=== PATIENT | female | born 1960 | race Caucasian/White ===

== ENCOUNTER 2021-08-05 11:01 | Emergency (ER) | payer MEDICARE, SELFPAY ==
[2021-08-05 11:08] VITALS: BP 157/79; PULSE 86; RESP 20; TEMP 37.1; O2SAT 95; BMI 27.3
[2021-08-05 11:20] VITALS: BP 157/79; PULSE 86; RESP 20; TEMP 37.1; O2SAT 95; BMI 24.2
--- NOTE | 2021-08-05 11:28 | XR_ITS ---
PROCEDURE INFORMATION: Exam: XR Chest Exam date and time: 08/05/2021 11:28 AM Age: 61 years old Clinical indication: Cough; Additional info: Cough, weakness TECHNIQUE: Imaging protocol: XR of the chest. Views: 2 views. COMPARISON: No relevant prior studies available. FINDINGS: Lungs: No focal consolidation. Mild bibasilar atelectasis. Pleural spaces: Unremarkable. No pleural effusion. No pneumothorax. Heart/Mediastinum: Unremarkable. No cardiomegaly. Bones/joints: Unremarkable. IMPRESSION: No focal consolidation. Mild bibasilar atelectasis.
--- NOTE | 2021-08-05 11:29 | HMH.EDUTC ---
[facility] [place] Disposition Clinical Impression: Bronchitis, COVID-19 virus test result unknown Disposition: Home, Self-Care Condition on Discharge: Good Instructions: Preventing the Spread of Coronavirus Discharge Instructions, DI for Acute Bronchitis Additional Instructions: covid swab was sent to lab, call later today for results. self isolate until test results are known to be negative Start antibiotic today. Be sure to complete entire prescription even if feeling better Tylenol and ibuprofen as needed for pain or fever Humidifier/vaporizer/hot steamy shower Follow-up with primary care tomorrow. Follow-up immediately in the ER of the [facility] for new or worsening symptoms or no noticeable improvement over the next 48-72 hours. Stop smoking Inhaler every 4-6 hours as needed. Should help open airways improved cough, wheezing, shortness of breath Maru Jewell will not cause drowsiness to use at bedtime to help stop cough so that she can get some sleep Start steroids today. Helps with inflammation therefore coughing and wheezing. Follow directions on package. Prescriptions: Azithromycin [Zithromax 250mg tab] 250 mg PO DIRECTED #6 tab Transmission Status: Pending to [id number] Referrals: Lexy Wilkes PA [Primary Care Provider] - Time of Disposition: 12:53 Medical Decision Making - Raphael Inquiry Pt receiving controlled substance: No Vital Signs: 08/05/21 11:08 08/05/21 11:20 Temperature 98.7 F 98.7 F Temperature Source Oral Oral Pulse Rate [Right Brachial] 86 86 Respiratory Rate 20 20 Blood Pressure [Right Arm] 157/79 H 157/79 H Blood Pressure Mean [Right Arm] 105 105 Blood Pressure Source [Right Arm] Automatic Cuff Automatic Cuff Blood Pressure Position [Right Arm] Sitting Sitting 02 Sat by Pulse Oximetry 95 95 Oxygen Delivery Method Room Air Room Air - Lab Data Lab Results 08/05/21 12:00: WBC 6.1, RBC 4.19 L, Hgb 13.0, Hct 39.8, MCV 95.1, MCH 31.1, MCHC 32.7, RDW 12.4, Plt Count 392, MPV 7.8, Neut % (Auto) 71.8, Lymph % (Auto) 19.7, Walton % (Auto) 5.5, Eos % (Auto) 2.4, Baso % (Auto) 0.6, Neut # (Auto) 4.4, Lymph # (Auto) 1.2, Walton # (Auto) 0.3, Eos # (Auto) 0.2, Baso # (Auto) 0.0 08/05/21 12:00: Sodium 139, Potassium 3.6, Chloride 101, Carbon Dioxide 29, Anion Gap 12.6, BUN 8, Creatinine 0.50 L, Estimated Creat Clear 67, Estimated GFR 125, Est GFR ( Amer) 151, Glucose 249 H, Calcium 9.1, Total Bilirubin 0.3, AST 30, ALT 27, Alkaline Phosphatase 68, Total Creatine Kinase 31, CK-MB (CK-2) 0.4, CK-MB (CK-2) Rel Index 1.3, Troponin I < 0.01, Total Protein 7.0, Albumin 3.7, Globulin 3.3 H, Albumin/Globulin Ratio 1.1 08/05/21 12:00: Acetone Level None detected Result diagrams: 08/05/21 12:00 08/05/21 12:00 Orders (Tests/Meds): ORDERS Category Date Time Status ECG Request by /Nse Stat Y 08/05/21 11:28 Ordered [facility] [place] HPI - General Chief complaint: Shortness of Breath/Dyspnea Stated complaint: Cough,SOB,CRUZ,Weakness,Diarrhea,congestion Time Seen by Provider: 08/05/21 11:29 Mode of Arrival: Wheelchair Limitations: No Limitations Description of Symptoms (Recalled from Triage Doc. by RN): Pt family states that she has been sick for the past week. short of breath and feels like she has been running a fever, but does not have a thermometer to check it. pt complains of diarrhea as well. states that [place] and [place] exposed to crowds [place], but did not go this last week. HEENT Symptoms (Recalled from RN notes): No Resp Symptoms (Recalled from RN notes): Yes Skin Symptoms (Recalled from RN notes): No MS Symptoms (Recalled from RN notes): No Functional Status (Recalled from RN notes): na - History of Present Illness Provider Complaint: 61 yr old female presents for weakness.Pt family states that she has been sick for the past week. short of breath and feels like she has been running a fever, but does not have a thermometer to check it. pt complains of diarrhea as well. states th
--- NOTE | 2021-08-05 11:40 | ECG_ITS ---
APPROVED REPORT Exam: Resting ECG HR:93 bpm ECG Measurements Heart Rate 93 AXES NC 164 P 61 QRSd 82 QRS 10 QT 380 T 162 QTc 472 Conclusion Normal sinus rhythm T wave abnormality, consider anterior ischemia Prolonged QT Abnormal ECG Electronically signed by : Brad Hassan MD 08/06/2021 09:18:49
[2021-08-05 12:07] LABS: Basophils % 0.6 % (0.1-2.0); Eosinophils # 0.2 K/mm3 (0.0-0.4); Eosinophils % 2.4 % (0.1-12.0); Hematocrit 39.8 % (37.0-47.0); Lymphocytes # 1.2 K/mm3 (0.7-4.5); Lymphocytes % 19.7 % (10-50); Mean Corpuscular HGB Conc 32.7 g/dL (31.8-35.4); Mean Corpuscular Hemoglobin 31.1 pg (27.0-31.2); Mean Corpuscular Volume 95.1 fl (81-99); Mean Platelet Volume 7.8 fl (7.4-10.4); Monocytes # 0.3 K/mm3 (0.1-1.0); Monocytes % 5.5 % (1.7-9.3); Neutrophils # 4.4 K/mm3 (1.8-7.8); Neutrophils % 71.8 % (37.0-80.0); Platelet Count 392 K/mm3 (142-424); Red Blood Count 4.19 M/mm3 (4.20-5.40); Red Cell Distribution Width 12.4 % (11.5-17.5); White Blood Count 6.1 K/mm3 (4.8-10.8)
[2021-08-05 12:12] LABS: Chloride 101 mmol/L (98-107); Potassium 3.6 mmoL/L (3.5-5.1); Sodium 139 mmol/L (136-145)
[2021-08-05 12:15] LABS: Alanine Aminotransferase 27 U/L (12-78); Albumin Level 3.7 g/dl (3.5-5.0); Albumin/Globulin Ratio 1.1 (1.1-1.8); Alkaline Phosphatase 68 U/L (38-126); Anion Gap 12.6 mEq/L (5-15); Aspartate Amino Transferase 30 U/L (14-36); Bilirubin,Total 0.3 mg/dl (0.2-1.3); Blood Urea Nitrogen 8 mg/dl (7-17); Calcium 9.1 mg/dl (8.4-10.2); Carbon Dioxide 29 mmol/L (22.0-30.0); Creatine Kinase 31 U/L (30-135); Creatinine Clearance Estimated 67 mL/min (50-200); Estimated Glomerular Filt Rate 125 ml/min (>60); GFR (African American) 151 ML/MIN (>60); Globulin 3.3 g/dL (1.3-3.2); Glucose 249 mg/dl (74-100)
[2021-08-05 12:24] LABS: CKMB Relative Index 1.3 U/L (0-4.0); Creatine Kinase MB 0.4 ng/ml (0.0-2.03)
[2021-08-05 12:33] LABS: Troponin I < 0.01 ng/ml (0.00-0.034)
[2021-08-05 12:44] LABS: Acetone, Serum (Rapid) None Detected (None Detect)
[2021-08-05 12:56] VITALS: BP 157/79; PULSE 86; RESP 20; TEMP 37.1; O2SAT 95
== END 2021-08-05 13:00 | disposition home or self-care (01) ==
PROVIDERS: Emergency Provider Nurse Practitioner Family; PCP Physician Assistant Medical
DX: J20.9 Acute bronchitis, unspecified (principal); U07.1 COVID-19
CPT/HCPCS: 71046; 80053; 82009; 82550; 82553; 84484; 85025; 93005; 99291; C9803; U0003; U0005

== ENCOUNTER 2021-08-09 11:02 | Outpatient (CLI) | payer MEDICARE, SELFPAY ==
[2021-08-09 11:45] VITALS: BP 187/102; PULSE 92; RESP 16; TEMP 36.8; O2SAT 97
[2021-08-09 12:35] VITALS: BP 186/95; PULSE 89; RESP 16; O2SAT 97
[2021-08-09 13:00] VITALS: BP 189/92; PULSE 86; RESP 18; O2SAT 95
[2021-08-09 13:11] VITALS: BP 182/99; PULSE 81; RESP 18; O2SAT 96
== END 2021-08-09 13:14 | disposition home or self-care (01) ==
LOC: INF 11:05
PROVIDERS: PCP Physician Assistant Medical; Visit Provider Physician Assistant Medical
DX: U07.1 COVID-19 (principal); Z23 Encounter for immunization
CPT/HCPCS: 96365

== ENCOUNTER → 2023-02-06 18:45 | Outpatient (CLI) | payer MEDICARE, MEDICAID, SELFPAY | PROVIDERS: PCP Nurse Practitioner Family; Visit Provider Nurse Practitioner Family | DX: B35.1 Tinea unguium (principal); L60.8 Other nail disorders | CPT/HCPCS: 87102; 87206; 87220 ==

== ENCOUNTER → 2023-06-27 09:38 | Outpatient (CLI) | payer MEDICARE, MEDICAID, SELFPAY ==
--- NOTE | 2023-06-27 09:43 | MM_ITS ---
PROCEDURE INFORMATION: Exam: MG Bilateral Screening 3D Mammography Exam date and time: 06/27/2023 10:58 AM Age: 63 years old Clinical indication: Screening. No family history of breast cancer. TECHNIQUE: Imaging protocol: Bilateral Screening tomosynthesis and 2D mammography including computer-aided detection (CAD) when performed. COMPARISON: No relevant prior studies available.If prior mammograms are provided, I am happy to add an addendum. FINDINGS: MAMMOGRAPHY: Breast composition: The breasts are almost entirely fatty. Mass: None. Architectural distortion: None. Calcifications: No suspicious calcifications. Asymmetric density: None. Skin thickening: None. Axillary adenopathy: None. IMPRESSION: No mammographic evidence of malignancy. Annual screening is recommended unless otherwise clinically indicated. ASSESSMENT: BI-RADS Category 1: Negative
--- NOTE | 2023-06-27 09:43 | US_ITS ---
PROCEDURE: US TRANSVAGINAL CLINICAL INDICATION: abnormal bleeding and pelvic mass COMPARISON: No exams were available for comparison FINDINGS: Transvaginal and transabdominal sonographic images of the pelvis were obtained. UTERUS: 9.9 cm x 7cmx 5.8 cm with a combined endometrial thickness of 13.5 mm. Within the cervix there are multiple nabothian cysts. The largest measures 2.3 cm. There is a large pelvic mass superior to and left lateral to the uterus. It measures 11.8 cm x 7.5 cm x 10.7 cm. The mass has a solid appearance that seems to be separate from the uterus although it is difficult to see this definitively. LEFT OVARY: 2.6 cmx1.8 cmx1.5cm with a volume of 3.7ml. RIGHT OVARY: The right ovary is not visualized. Left ovary is seen and appears normal. Doppler flow to left ovary is seen. There is trace fluid in the cul-de-sac. IMPRESSION: 1. The uterus is anteverted and bulky. The endometrium is abnormally thickened for a postmenopausal woman. There are multiple nabothian cysts in the cervix the largest of which is 2.3 cm. 2. The left ovary appears normal. The right ovary is not seen. 3. There is a large mass superior to the uterus that extends laterally to the left side of the uterus. It measures 11.8 cm x 7.5 cm x 10.7 cm. It seems to be separate but compressing the uterus. It certainly could be a fibroid but a soft tissue tumor could also be a possibility. CT scan might be helpful. 4. There is trace fluid in the cul-de-sac. 5. The tech noted that there was vaginal bleeding after the examination. Dictated by: Jj Lee MD 06/27/2023 14:25 Jj Lee MD in [place] 06/27/2023 14:25
== END ==
PROVIDERS: PCP Nurse Practitioner Family; Visit Provider Obstetrics & Gynecology
DX: Z12.31 Encounter for screening mammogram for malignant neoplasm of breast (principal); N85.2 Hypertrophy of uterus; N95.0 Postmenopausal bleeding; R19.00 Intra-abdominal and pelvic swelling, mass and lump, unspecified site
CPT/HCPCS: 76830; 77063; 77067

== ENCOUNTER → 2023-06-28 09:37 | Outpatient (CLI) | payer MEDICARE, MEDICAID, SELFPAY ==
[2023-06-28 10:50] LABS: Alanine Aminotransferase 20 U/L (12-78); Albumin Level 4.1 g/dl (3.5-5.0); Albumin/Globulin Ratio 1.6 (1.1-1.8); Alkaline Phosphatase 53 U/L (38-126); Anion Gap 12.5 mEq/L (5-15); Aspartate Amino Transferase 22 U/L (14-36); Bilirubin,Total 0.5 mg/dl (0.2-1.3); Blood Urea Nitrogen 10 mg/dl (7-17); Calcium 8.9 mg/dl (8.4-10.2); Carbon Dioxide 30 mmol/L (22.0-30.0); Chloride 101 mmol/L (98-107); Estimated Glomerular Filt Rate 72 ml/min (>60); GFR (African American) 87 ML/MIN (>60); Globulin 2.5 g/dL (1.3-3.2); Glucose 152 mg/dl (74-100); Potassium 4.5 mmoL/L (3.5-5.1); Sodium 139 mmol/L (136-145); Total Protein,Serum 6.6 g/dl (6.3-8.2)
== END ==
PROVIDERS: PCP Internal Medicine Adolescent Medicine; Visit Provider Obstetrics & Gynecology
DX: N85.8 Other specified noninflammatory disorders of uterus (principal)
CPT/HCPCS: 36415; 80053

== ENCOUNTER → 2023-07-01 07:43 | Outpatient (CLI) | payer MEDICARE, MEDICAID, SELFPAY ==
--- NOTE | 2023-07-01 07:44 | CT_ITS ---
FINAL REPORT TECHNIQUE: Routine axial images were obtained from the lung apices to below the diaphragm following IV contrast administration. Individualized dose reduction techniques using automated exposure control or adjustment of the mA and/or kV according to the patient size were employed. CLINICAL HISTORY: uterine Mass COMPARISON: None FINDINGS: The apices of the lungs were not imaged on this examination. No acute lung disease is present. No pleural or pericardial effusion is seen. No adenopathy is present. There is a 4 mm nodule in the right lower lobe, noncalcified, best seen on image 34 of series 4. There is another 4 mm nodule seen in the left lung base best seen on image #48 of series 4. IMPRESSION: There are two small 4 mm nodules as described. By Fleischner criteria a 1 year follow-up chest CT is suggested. Reviewed, Interpreted and Dictated by Morgan Stroud MD Transcribed by Cathryn Peguero Authenticated and [facility]
--- NOTE | 2023-07-01 07:44 | CT_ITS ---
FINAL REPORT TECHNIQUE: After the administration of oral and intravenous contrast, axial images were obtained through the abdomen and pelvis by computed tomography. The study was performed with techniques to keep radiation dose as low as reasonably achievable, (ALARA). Individual dose reduction techniques using automated exposure control or adjustment of mA and/or kV according to the patient's size were employed. CLINICAL HISTORY: uterine Mass COMPARISON: None FINDINGS: Abdomen: The lung bases are clear. The liver parenchyma is homogeneous, the liver measuring 19 cm in craniocaudal dimension.. The gallbladder is absent, and there is mild intra and extrahepatic ductal dilatation consistent with a prior cholecystectomy. The spleen, pancreas, adrenals and kidneys appear unremarkable. The aorta is normal in caliber. There is no free fluid or adenopathy. Pelvis: The appendix is normal. There are multiple lobular masses in the pelvis contiguous with the uterus, the largest measuring 12 x 7.5 cm in size. These may be arising from the uterus. There is a right posterolateral focus with a cystic component, which measures 5.8 cm in diameter. The ovaries are not clearly visualized on either side. The urinary bladder is compressed due to the large pelvic masses. There is no free fluid or adenopathy. IMPRESSION: Multiple lobular masses in the pelvis contiguous with the uterus as described. These may be arising from the uterus, although the exact origin is not clear on this examination. Reviewed, Interpreted and Dictated by Morgan Stroud MD Transcribed by Cathryn Peguero Authenticated and [facility]
== END ==
PROVIDERS: PCP Nurse Practitioner Family; Visit Provider Obstetrics & Gynecology
DX: N85.8 Other specified noninflammatory disorders of uterus (principal)
CPT/HCPCS: 71260; 74177; Q9967

== ENCOUNTER 2024-02-25 14:37 | Outpatient (POV) | payer MEDICARE, MEDICAID, SELFPAY | END 2024-02-25 23:59 | disposition home or self-care (01) | LOC: SC 14:38 | PROVIDERS: PCP Internal Medicine Adolescent Medicine; Visit Provider Dermatology | DX: Z00.00 Encounter for general adult medical examination without abnormal findings (principal) ==

== ENCOUNTER 2024-03-31 07:46 | Outpatient (CLI) | payer MEDICARE, MEDICAID, SELFPAY ==
--- NOTE | 2024-03-31 | CA_ITS ---
APPROVED REPORT Exam: Pharmacologic Technologist: Ynes Metzger, Ht: 5 ft 5 in Wt: 174 lbs BSA: 1.86 m2 HR: 77 bpm BP: 154/79 mmHg Rhythm: NSR Medical History Medications: Lisinopril,,,,, Aspirin,,,,, Fluoxetine,,,,, JaRDiance,,,,, Hydroxyzine HCI,,,,, BuPROPION HCI,,,,, Terbinafine HCI,,,,, Stress Test Details Test: LEXISCAN Reason for pharmacologic stress test: physical limitation. HR Resting HR: 79 bpm Max Heart Rate (APMHR): 155 bpm Max HR Achieved: 93 bpm Target HR (85% APMHR): 132 bpm % of APMHR: 60 Recovery HR: 86 bpm BP Resting BP: 154.0/79.0 mmHg Max BP: 154.0/79.0 mmHg Recovery BP: 149.0/67.0 mmHg ECG Resting ECG: NSR Stress ECG: No significant ST changes Arrhythmia: PVCs Clinical Exercise duration: 04:04 min Highest Stage Achieved: Stress ECG Conclusion Symptoms: chest tightness Arrhythmias/Ectopy: PVC ST-T Changes: No significant ST changes Conclusion: EKG portion unremarkable due to Lexiscan infusion. Myoview images reported separately. Test Summary REST . . . . . . . Resting REST 03:06 . . 79 . 154/ 79 . . Stage 1 . . . . . . . Myoview Injected Stage 1 01:00 . . 91 . . . . Stage 2 01:00 . . 91 . 147/ 67 . . Stage 3 01:00 . . 90 . 145/ 64 . . Stage 4 01:00 . . 88 . 136/ 65 . . Stage 4 01:04 . . 88 . 136/ 65 . Stop exercise at 04:04 RECOVERY 01:00 . . 89 . . . . RECOVERY 02:00 . . 86 . 149/ 61 . . RECOVERY 03:00 . . 87 . 149/ 67 . . RECOVERY 03:14 . . 86 . 149/ 67 . . Electronically signed by : Ciara Broussard MD 04/07/2024 13:04:10
--- NOTE | 2024-03-31 07:53 | NM_ITS ---
APPROVED REPORT Exam: Nuclear Stress Test Indication: SOB, HTN, DM, High cholesterol, Family history Patient Location: Outpatient Stress Tech: Ynes Flores MD Tech:Ester Caldwell, ARRT, RT (R)(N) Ht: 5 ft 4 in Wt: 172 lbs Bra Size: 36D HR: 79 bpm BP: 154/79 mmHg BSA: 1.83 m2 TID: 1.11 BMI: 29.5 History: SOB, HTN, DM, High cholesterol, Family history Procedure: Patient received 0.4 mg of intravenous Lexiscan, resting heart rate 79 bpm, resting blood pressure 154/79 mmHg, with Lexiscan maximum heart rate achieved was 93 bpm which is % of the maximum predicted heart rate and blood pressure was 154/79 mmHg. With Lexiscan, patient denied any complaint of chest pain. Cardiac Stress and Resting SPECT Images: Cardiac Stress and Resting SPECT images were obtained using technetium 99m Myoview 29.5 mCi stress and 9.16 mCi at rest. Resting and stress imaging in supine and prone positions demonstrate no evidence of fixed or reversible perfusion defects. Gated imaging demonstrates moderate reduction in global LV systolic function. LVEF is calculated at 39%. Conclusion: No evidence of fixed or reversible perfusion defects. Gated imaging demonstrates moderate reduction in global LV systolic function. LVEF is calculated at 39%. Correlation of LVEF with recent or new TTE is recommended. Electronically signed by : Ciara Broussard MD 04/07/2024 13:05:44
[2024-03-31] MEDS: SODIUM CHLORIDE 0.9% 10ML SYR (RAD ONLY) 10 ML IV ×2 (08:55)
[2024-03-31] MEDS: REGADENOSON 0.4MG/5ML SYRINGE 0.400000000000000022 MG IV (08:55)
[2024-03-31] MEDS: ISOTOPE MYOVIEW (PER STUDY) 1 DOSE IV (08:55)
== END 2024-03-31 23:59 | disposition home or self-care (01) ==
LOC: RAD 07:47
PROVIDERS: PCP Nurse Practitioner Family; Visit Provider Nurse Practitioner Family
DX: R06.02 Shortness of breath (principal)
CPT/HCPCS: 78452; 93017; 93018; A9502; J2785

== ENCOUNTER 2024-04-07 10:42 | Outpatient (CLI) | payer MEDICARE, MEDICAID, SELFPAY ==
--- NOTE | 2024-04-07 10:49 | MM_ITS ---
PROCEDURE INFORMATION: Exam: MG Bilateral Screening 3D Mammography Exam date and time: 04/07/2024 10:48 AM Age: 64 years old Clinical indication: Screening examination TECHNIQUE: Imaging protocol: Bilateral Screening tomosynthesis and 2D mammography including computer-aided detection (CAD) when performed. COMPARISON: MG MM DIG SCREENING MAMM BI W/CAD 06/27/2023 10:58 AM FINDINGS: MAMMOGRAPHY: Breast composition: The breasts are almost entirely fatty. Mass: None. Architectural distortion: None. Calcifications: No suspicious calcifications. Asymmetric density: None. Skin thickening: None. Axillary adenopathy: None. IMPRESSION: No mammographic evidence of malignancy. Annual screening is recommended unless otherwise clinically indicated. ASSESSMENT: BI-RADS Category 1: Negative
== END 2024-04-07 23:59 | disposition home or self-care (01) ==
PROVIDERS: PCP Nurse Practitioner Family; Visit Provider Nurse Practitioner Family
DX: Z12.31 Encounter for screening mammogram for malignant neoplasm of breast (principal)
CPT/HCPCS: 77063; 77067

== ENCOUNTER 2024-04-16 13:06 | Outpatient (CLI) | payer MEDICARE, MEDICAID, SELFPAY ==
--- NOTE | 2024-04-16 13:10 | CA_ITS ---
APPROVED REPORT EXAM: Comprehensive 2D, Doppler, and color-flow Echocardiogram Night Shift: Milly Santillan RCS, RVS Ht: 5 ft 4 in Wt: 172lbs BSA: 1.83 BP: 154/79 mmHg Indications: Abnormally reduced Ejection fraction per Nuclear stress test 03/2024, DM< HTN, Family Hx-HD, Second hand smoke 2D Dimensions IVSd 1.08 cm LVEF (Visual) 44.20 % PWd 1.28 cm LA Volume 65.80 mL LVDd 5.63 cm LA Volume Index 35.00 mL/m2 (M/F) 16-34 LVDs 4.38 cm EF AP4 40.40 % Left Atrium 4.21 cm GL Strain -18.1 % M-Mode Dimensions LA Diam 2.40 cm (1.9-4.0) LVDd 5.46 cm (3.5-5.7) LVDs 4.32 cm (3.5-5.7) EF (Teich) 42.10% EPSs 1.62 cm FS 20.90% EDV (Teich) 145.00 mL TAPSE 2.26 (<1.7) ESV (Teich) 84.00 mL LV Diastology E Decel Time 187 (160-240 msec) E/A Ratio 0.82 MED A' 6.50 cm/s LAT A' 9.40 cm/s Aortic Valve GLADIS Index 1.15 cm2/m2 AoV Peak Usama. 110.0 (50-130 cm/s) AO Peak GR. 4.90 mmHg AO Mean GR. 2.40 (<5 mmHg) AO VTI 21.9 (18-25 cm) GLADIS (VTI) 2.17 (2.5-4.5 cm2) Mitral Valve MV A Velocity 92.0 (40-130 cm/s) E/A Ratio 0.82 MV Mean Gr. 1.60 (<2mmHg) Pulmonary Valve PV Peak Velocity 86.0 (50-150 cm/s) Left Ventricle Left ventricle is mildly dilated. Left ventricular systolic function is mildly decreased. There is normal left ventricular wall thickness. There is mild global hypokinesis present. There is moderate hypokinesis of the basal septal, inferoseptal, and anteroseptal LV cueto. Grade 1 diastolic dysfunction is present. LVEF is 40-45%. Right Ventricle The right ventricle is normal size. The right ventricular systolic function is normal. Atria The left atrium size is normal. The right atrium size is normal. There is no Doppler evidence of interatrial shunt. Aortic Valve The aortic valve opens well. There is no aortic valvular stenosis. Trace aortic regurgitation. Mitral Valve The mitral valve leaflets are mildly thickened. No evidence of mitral valve stenosis. Trace mitral regurgitation. Tricuspid Valve The tricuspid valve leaflets are thin and pliable. Trace tricuspid regurgitation. RVSP is normal. Pulmonic Valve The pulmonary valve is normal in structure. Trace pulmonic regurgitation. Great Vessels The aortic root is normal in size. The ascending aorta is not well-visualized. IVC is normal in size and collapses >50% with inspiration. Pericardium There is no pericardial effusion. Other Information Study Quality: Fair Conclusion Mild LV dilation with mildly reduced LV systolic function (LVEF 40-45%). Moderate hypokinesis of the basal septal, inferoseptal, and anteroseptal LV cueto. No significant valvular stenosis or regurgitation. Electronically signed by : Ciara Broussard MD 04/21/2024 11:23:23
== END 2024-04-16 23:59 | disposition home or self-care (01) ==
LOC: RT 13:07
PROVIDERS: PCP Nurse Practitioner Family; Visit Provider Nurse Practitioner Family
DX: I51.9 Heart disease, unspecified (principal)
CPT/HCPCS: 93306

== ENCOUNTER 2024-05-25 07:30 | Outpatient (CLI) | payer MEDICARE, MEDICAID, SELFPAY ==
--- NOTE | 2024-05-25 07:30 | CT_ITS ---
APPROVED REPORT Compliance Examiner: CLINICAL INDICATION Chest Pain TECHNIQUE Image Acquisition: A 128 slice MDCT scanner (TrendMDa View) was used for data acquisition. A noncontrast coronary calcium scan was performed. A CT attenuation threshold of 130 Hounsfield units (HU) was used for the detection of calcium in contiguous voxels of 1 sq mm in area to be counted as individual lesions. Bolus tracking in the ascending aorta with a threshold of 180 HU was performed. Immediately afterwards, ECG synchronized cardiac CT was then performed from the cardiac base to apex using retrospective gating with ECG tube current modulation. A total of 85 mL of Isovue 370 mg/mL contrast medium was administered at 5 mL/sec followed by a saline flush using a biphasic injection protocol. A tube voltage of 120 KVp was used. The patient received the following medications prior to the cardiac CT. 50 mg of oral metoprolol 15 mg of oral ivabradine 0.8 mg of sublingual nitroglycerin The average heart rate at the time of acquisition was 76 bpm and regular. Image Reconstruction Transaxial images were reconstructed at 0.67 mm slide thickness. Data was reviewed interactively on an advanced workstation capable of 2 and 3-dimensional displays in all conventional reconstruction formats, including multiplanar reformations, maximum intensity projections, curved multiplanar reformations, and volume rendered reconstructions. When applicable, selected routine images describing the relevant coronary anatomy and pathology were saved and sent to PACS. Complications None Technical Quality Technically difficult study. Overall image quality was poor due to significant motion and step artifact during image acquisition. Coronary artery opacification was suboptimal. Total DLP (Dose-Length Product) is 1345.1 mGy-cm. The reported value represents the total of one or more individual components during the CT acquisition of this date and at this time, and as such, the same value may appear in more than one CT report depending on the interpreting/reporting physicians. COMPARISON None FINDINGS CT Coronary Calcium Scoring LMA (Left Main Artery) = 0 LAD (Left Anterior Descending) = 0 LCX (Left Coronary Circumflex) = 0 RCA (Right Coronary Artery) = 0 Total Calcium Score = 0 using the AJ-130 method. The interpretation of the calcium heart score is based on the following continuum*: 0 = no calcified plaque detected (risk of coronary artery disease is very low ??? less than 5%) 1-10 = calcium detected in extremely minimal levels (risk of coronary diseases is still low ??? less than 10%) 11-100 = mild levels of plaque detected with certainty (mild or minimal narrowing of heart arteries is likely) 101-400 = definite,at least moderate levels of plaque detected (relatively high risk of a heart attack within 3-5 years) >401-999 = extensive levels of plaque detected (high risk of heart attack, high levels of vascular disease are present, high likelihood of at least one significant coronary narrowing) *The calcium heart score quantifies the burden of coronary calcification/plaque in the coronary arteries. The calcium heart score is not able to evaluate the presence or burden of non-calcified (i.e. soft) plaque. There is no identifiable calcification in the aortic valve, mitral annulus or mitral valve, pericardium, or myocardium. Coronary CT Angiography The coronary arterial system is right dominant. Quantitative Stenosis Grading: Left Main (LM): The left main originates normally from the left sinus of Valsalva. The LM bifurcates into the left anterior descending artery and left circumflex artery. The LM is patent with no evidence of atherosclerosis. Left Anterior Descending (LAD) and
[2024-05-25 07:46] VITALS: BMI 29.7
[2024-05-25 07:54] VITALS: BP 134/66; PULSE 68; RESP 16; O2SAT 99
[2024-05-25 08:04] LABS: POC Glucose,Bedside 136 (70-110)
[2024-05-25 08:09] LABS: Chloride 104 mmol/L (98-107); Potassium 4.4 mmoL/L (3.5-5.1); Sodium 137 mmol/L (136-145)
[2024-05-25 08:12] LABS: Anion Gap 10.4 mEq/L (5-15); Blood Urea Nitrogen 21 mg/dl (7-17); Carbon Dioxide 27 mmol/L (22.0-30.0); Creatinine Clearance Estimated 63 mL/min (50-200); Estimated Glomerular Filt Rate 50 ml/min (>60); GFR (African American) 60 ML/MIN (>60)
[2024-05-25 08:13] LABS: Calcium 9.4 mg/dl (8.4-10.2); Glucose 129 mg/dl (74-100)
[2024-05-25 08:44] VITALS: BP 148/67; PULSE 72; RESP 16; O2SAT 94
[2024-05-25 08:50] VITALS: BP 130/69; PULSE 68; RESP 16; O2SAT 94
[2024-05-25 08:53] VITALS: BP 128/72; PULSE 68; RESP 16; O2SAT 94
[2024-05-25 09:00] VITALS: BP 129/67; PULSE 64; RESP 16; O2SAT 93
[2024-05-25 09:15] VITALS: BP 114/64; PULSE 65; RESP 16; O2SAT 94
== END 2024-05-25 09:20 | disposition home or self-care (01) ==
PROVIDERS: PCP Nurse Practitioner Family; Visit Provider Physician Assistant
DX: I20.89 Other forms of angina pectoris (principal); R06.09 Other forms of dyspnea; R93.1 Abnormal findings on diagnostic imaging of heart and coronary circulation
CPT/HCPCS: 75574; 80048; 82962; Q9967

== ENCOUNTER 2024-07-07 09:01 | Outpatient (CLI) | payer MEDICARE, MEDICAID, SELFPAY ==
--- NOTE | 2024-07-07 09:13 | MR_ITS ---
APPROVED REPORT Key Holder: CLINICAL INDICATION Reduced LVEF 40-45% on TTE TECHNIQUE Image Acquisition: Cardiac magnetic resonance (CMR) was performed on Siemens Espree MRI 1.5T scanner. Software platform sequences were performed using the Siemens Bueda MR B19 platform. A set of three-plane, low-resolution, large [id number] localizers were initially acquired. Then axial, coronal, sagittal TrueFISP, as well as axial HASTE images, were obtained. These were followed by gated TrueFISP breathold cinematic sequences obtained in the short axis with 8 mm slices and 2 mm gaps, 2-chamber (vertical long axis), 3-chamber, 4-chamber (horizontal long axis). A bolus of contrast was injected intravenously with first-pass sequences obtained in the short axis and four-chamber planes. After approximately 10 minutes, a TI delinquent tax collector sequence was performed to determine the optimal TI time. Using the optimized TI time, delayed contrast enhancement segmented inversion???recovery TurboFLASH sequences were obtained in the short axis, 2-chamber, 3-chamber, and 4-chamber projections. 2D-velocity phase mapping was performed. Functional parameters were calculated by offline analysis on an independent workstation ([employer], [employer] Contrast: ProHance??? (Gadoteridol) FINDINGS MORPHOLOGY AND FUNCTION Left ventricle: The left ventricle is normal in size. The indexed left ventricular end-diastolic volume (LVEDVi) is 80 ml/m2 (reference range 57-105 ml/m2 in males, 56-96 ml/m2 in females). There is mild reduction in left ventricular systolic function. There is normal left ventricular wall thickness. There is mild global hypokinesis present. There are no regional wall motion abnormalities noted. LVEF is calculated at 41.0% (reference range 57-77%). Right ventricle: The right ventricle is normal in size. The indexed right ventricular end-diastolic volume (RVEDVi) is 57 ml/m2 (reference range 61-121 ml/m2 in males, 48-112 ml/m2 in females). Normal right ventricular systolic function is present. RVEF is calculated at 55.0% (reference range 52-72% in males, 51-71% in females). Atria: The left atrium is normal in size. The maximum indexed left atrial volume is 25 ml/m2 (reference range 26-52 ml/m2 in males, 27-53 ml/m2 in females). The right atrium is normal in size. The maximum indexed right atrial volume is 23 ml/m2 (reference range 18-90 ml/m2). Aorta: The diameter of the aortic annulus is normal, measuring 19 mm (coronal view reference range 21-30 mm in males, 19-27 mm in females). The diameter of the aortic sinus is normal, measuring 32 mm (coronal view reference range 25-42 mm in males, 24-36 mm in females). The diameter of the sinotubular junction is normal, measuring 26 mm (coronal view reference range 18-32 mm in males, 18-28 mm in females). The diameters of the ascending and descending thoracic aorta are normal. Main pulmonary artery: The main pulmonary artery diameter is normal. Pericardium: The pericardial thickness is normal. The pericardial thickness measures 3 mm (normal < 4.0 mm). There is no pericardial effusion. VALVES The valvular morphologies in the visualized sequences appear normal. There is no significant valvular stenosis or regurgitation of the mitral, aortic, tricuspid, or pulmonic valve noted visually. Systolic anterior motion of the mitral valve is not visualized. Ratio of pulmonary to systemic flow, Qp:Qs ratio = 1.26 (normal < or = 1.2, hemodynamically significant shunt > 1.5), demonstrating no evidence of hemodynamically significant shunt. TISSUE CHARACTERIZATION Resting Perfusion: Normal myocardial blood flow at rest. No evidence of resting hypoperfusion. Myocardial Fibrosis and/or edema: Normal gadolinium kinetics are present. No evidence of late gadolinium enhancement is noted, consistent with absence of myocardial scarring, infarction, or necrosis. T2-weighted imaging demonstrates no evidence of myocardial edema or inflammation. OTHER No other significant findings are noted. However, this exam is focused on the cardiac structure and function. IMPRESSION Normal LV size with mild reduction in LV systolic function. LVEDVi= 80 ml/m2 and LVEF= 41.0%. Normal RV size with normal RV systolic function. RVEDVi= 57 ml/m2 and RVEF= 55.0%. No atrial enlargement. No CMR evidence of myocardial scarring, infarction, or necrosis. No evidence of myocardial edema or inflammation. Perfusion analysis demonstrates normal blood flow at rest with no evidence of resting hypoperfusion. Ratio of pulmonary to systemic flow, Qp:Qs ratio = 1.26 (normal < or = 1.2, hemodynamically significant shunt > 1.5), demonstrating no evidence of hemodynamically significant shunt. Overall, this CMR demonstrates mild reduction in LV systolic function with presence of global hypokinesis. No evidence of infiltrative cardiomyopathy or restrictive etiology. No evidence of scarring or prior infarct. Findings are most consistent with idiopathic non-ischemic cardiomyopathy. COMPARISON None CRITICAL RESULT None COMMUNICATION Per this written report The findings of this cardiac MR were reviewed, reported, and signed by Efrem Broussard MD ([employer] Supervisor). Conclusion Electronically signed by : Ciara Broussard MD 07/30/2024 12:03:18
[2024-07-07 09:28] LABS: Blood Urea Nitrogen 19 mg/dl (7-17); Estimated Glomerular Filt Rate 72 ml/min (>60); GFR (African American) 87 ML/MIN (>60)
[2024-07-07] MEDS: GADOTERIDOL INJ 20ML SYRINGE 18 ML IV (10:57)
[2024-07-07] MEDS: SODIUM CHLORIDE 0.9% 10ML SYR (RAD ONLY) 10 ML IV (10:57)
[2024-07-07] MEDS: 0.9 % SODIUM CHLORIDE 50 ML VIAL 20 ML IV (10:57)
== END 2024-07-07 23:59 | disposition home or self-care (01) ==
LOC: RAD 09:02
PROVIDERS: PCP Nurse Practitioner Family; Visit Provider Physician Assistant
DX: R93.1 Abnormal findings on diagnostic imaging of heart and coronary circulation (principal); R94.30 Abnormal result of cardiovascular function study, unspecified; I20.89 Other forms of angina pectoris
CPT/HCPCS: 36415; 75561; 82565; 84520; A9576

== ENCOUNTER 2024-09-15 09:35 | Outpatient (CLI) | payer MEDICARE, MEDICAID, SELFPAY ==
[2024-09-15 10:28] LABS: Anion Gap 13.3 mEq/L (5-15); Blood Urea Nitrogen 22 mg/dl (7-17); Calcium 9.4 mg/dl (8.4-10.2); Carbon Dioxide 27 mmol/L (22.0-30.0); Chloride 105 mmol/L (98-107); Estimated Glomerular Filt Rate 56 ml/min (>60); GFR (African American) 67 ML/MIN (>60); Glucose 135 mg/dl (74-100); Potassium 4.3 mmoL/L (3.5-5.1); Sodium 141 mmol/L (136-145)
== END 2024-09-15 23:59 | disposition home or self-care (01) ==
LOC: LAB 09:35
PROVIDERS: PCP Nurse Practitioner Family; Visit Provider Physician Assistant
DX: I42.9 Cardiomyopathy, unspecified (principal)
CPT/HCPCS: 80048

== ENCOUNTER 2024-09-29 10:59 | Outpatient (CLI) | payer MEDICARE, MEDICAID, SELFPAY ==
--- NOTE | 2024-09-29 11:04 | CA_ITS ---
APPROVED REPORT EXAM: Limited 2D Echocardiogram Call Center Director: Yumiko Taylor RT(R) Ht: 5 ft 4 in Wt: 171lbs BSA: 1.83 BP: 135/60 mmHg Indications: CM, EF 40-45% on echo 04/21/24, ordered as limted echo to reassess EF. 2D Dimensions LVEF (Silveira's) 38.20 % F: 54 - 74 LV Volume 103.80 mL F: 46 - 106 LV Volume Index 56.7 mL/m2 F: 29 - 61 EF AP4 31.00 % EF AP2 42.3 % EF BP 38.2 % GL Strain -11.4 % M-Mode Dimensions RVDd 1.94 cm (0.9-2.6) LVDd 3.84 cm (3.5-5.7) LVDs 3.00 cm (3.5-5.7) IVSd 0.68 cm (0.6-1.1) PWd 0.76 cm (0.6-1.1) EF (Teich) 44.90% FS 21.90% EDV (Teich) 63.50 mL ESV (Teich) 35.00 mL Other Information Study Quality: Fair Conclusion This is a limited TTE to evaluate for LV systolic function. Limited windows were obtained. The left ventricle is normal in size. There is normal LV wall thickness. There is mild global hypokinesis present. There is moderate hypokinesis of the septal and inferoseptal LV cueto. LVEF is 40-45%. Compared to prior TTE from 04/16/2024, there are no significant changes. Electronically signed by : Ciara Broussard MD 09/29/2024 12:55:30
== END 2024-09-29 23:59 | disposition home or self-care (01) ==
LOC: RT 11:00
PROVIDERS: PCP Nurse Practitioner Family; Visit Provider Internal Medicine
DX: I42.8 Other cardiomyopathies (principal)
CPT/HCPCS: 93308

== ENCOUNTER 2025-05-06 13:38 | Outpatient (CLI) | payer MEDICARE, MEDICAID, SELFPAY ==
--- NOTE | 2025-05-06 13:47 | CA_ITS ---
FINAL REPORT TECHNIQUE: Mcdaniel scale, color and spectral doppler images of the bilateral carotid arteries were obtained. CLINICAL HISTORY: SYNCOPE,DIZZINESS FINDINGS: The peak systolic velocity of the right common carotid artery is 75 cm/s. The peak systolic velocity of the right internal carotid artery is 78 cm/s and end diastolic velocity 30 cm/s. The ICA/CCA ratio is 1.2. There is no significant plaque. The right external carotid artery is patent. The right vertebral artery is patent with antegrade flow. The peak systolic velocity of the left common carotid artery is 62 cm/s. The peak systolic velocity of the left internal carotid artery is 96 cm/s and end diastolic velocity 37 cm/s. The ICA/CCA ratio is 1.7. There is no significant plaque. The left external carotid artery is patent.The left vertebral artery is patent with antegrade flow. IMPRESSION: Less than 50% bilateral carotid stenoses. Bilateral patent vertebral arteries with antegrade flow. If indicated, CTA or MRA could further evaluate. Reviewed, Interpreted and Dictated by Cherrie Bajwa MD Transcribed by Mckenna Villa Authenticated and [facility]
--- NOTE | 2025-05-06 14:08 | MM_ITS ---
PROCEDURE INFORMATION: Exam: MG Bilateral Screening 3D Mammography Exam date and time: 05/06/2025 2:36 PM Age: 65 years old Clinical indication: Screening examination TECHNIQUE: Imaging protocol: Bilateral Screening tomosynthesis and 2D mammography including computer-aided detection (CAD) when performed. COMPARISON: 1. MG MM DIG SCREENING MAMM BI W/CAD 04/07/2024 10:48 AM 2. MG MM DIG SCREENING MAMM BI W/CAD 06/27/2023 10:58 AM FINDINGS: MAMMOGRAPHY: Breast composition: There are scattered areas of fibroglandular density. Mass: No suspicious masses. Architectural distortion: None. Calcifications: No suspicious calcifications. Asymmetric density: None. Skin thickening: None. Axillary adenopathy: None. IMPRESSION: No mammographic evidence of malignancy. Annual screening is recommended unless otherwise clinically indicated. ASSESSMENT: BI-RADS Category 1: Negative.
== END 2025-05-06 23:59 | disposition home or self-care (01) ==
LOC: RT 13:39
PROVIDERS: PCP Nurse Practitioner Family; Visit Provider Nurse Practitioner Family
DX: Z12.31 Encounter for screening mammogram for malignant neoplasm of breast (principal); I65.23 Occlusion and stenosis of bilateral carotid arteries; R92.323 Mammographic fibroglandular density, bilateral breasts
CPT/HCPCS: 77063; 77067; 93880

== ENCOUNTER 2025-05-26 14:15 | Outpatient (CLI) | payer MEDICARE, MEDICAID, SELFPAY ==
[2025-05-26 15:24] LABS: Chloride 99 mmol/L (98-107); Potassium 4.4 mmoL/L (3.5-5.1); Sodium 136 mmol/L (136-145)
[2025-05-26 15:27] LABS: Blood Urea Nitrogen 16 mg/dl (7-17); Creatinine,Serum 0.80 mg/dl (0.52-1.04); Estimated Glomerular Filt Rate 72 ml/min (>60); GFR (African American) 87 ML/MIN (>60)
[2025-05-26 15:28] LABS: Anion Gap 9.4 mEq/L (5-15); Calcium 10.1 mg/dl (8.4-10.2); Carbon Dioxide 32 mmol/L (22.0-30.0); Glucose 141 mg/dl (74-100)
== END 2025-05-26 23:59 | disposition home or self-care (01) ==
LOC: LAB 14:16
PROVIDERS: PCP Nurse Practitioner Family; Visit Provider Internal Medicine
DX: I10 Essential (primary) hypertension (principal)
CPT/HCPCS: 36415; 80048

== ENCOUNTER 2025-08-04 14:08 | Outpatient (CLI) | payer MEDICARE, MEDICAID, SELFPAY ==
--- NOTE | 2025-08-04 14:30 | CA_ITS ---
APPROVED REPORT EXAM: Comprehensive 2D, Doppler, and color-flow Echocardiogram Wood Preparation Supervisor: Kate Girffith RVT Ht: 5 ft 4 in Wt: 166lbs BSA: 1.81 BP: 144/78 mmHg Indications: HFrEF,DYSPENA 2D Dimensions IVSd 1.02 cm F: 0.6-1.0 LVEF (Visual) 47.50 % PWd 0.92 cm F: 0.6 - 1.0 LA Volume 53.40 mL LVDd 6.50 cm F: 3.9 - 5.3 LA Volume Index 29.50 mL/m2 (M/F) 16-34 LVDs 4.91 cm F: 2.2 - 3.5 M-Mode Dimensions LA Diam 2.45 cm (1.9-4.0) TAPSE 1.94 (<1.7) LV Diastology E Decel Time 150 (160-240 msec) E/A Ratio 0.7 Aortic Valve GLADIS Index 1.36 cm2/m2 AoV Peak Usama. 81.0 (50-130 cm/s) AO Peak GR. 2.60 mmHg AO Mean GR. 1.80 (<5 mmHg) AO VTI 16.0 (18-25 cm) GLADIS (VTI) 2.51 (2.5-4.5 cm2) Mitral Valve MV E Max Usama. 59.0 (40-130 cm/s) MV A Velocity 82.0 (40-130 cm/s) E/A Ratio 0.72 MV PHT 44.0 ms Pulmonary Valve PV Peak Velocity 35.0 (50-150 cm/s) Left Ventricle The left ventricle is mildly dilated. Left ventricular systolic function is moderately to severely dilated. There is normal left ventricular wall thickness. There is moderate to severe global hypokinesis. The septal LV wall is severely hypokinetic. Grade 1 diastolic dysfunction is present. LVEF is 30% Right Ventricle The right ventricle is normal size. The right ventricular systolic function is normal. Atria The left atrium is mildly dilated. The right atrium size is normal. There is no color Doppler evidence of interatrial shunt. Aortic Valve The aortic valve is mildly thickened. There is no hemodynamically significant aortic valvular stenosis. Trace aortic regurgitation is present. Mitral Valve The mitral valve is normal in structure. No evidence of mitral valve stenosis. Trace mitral regurgitation is present. Tricuspid Valve The tricuspid valve leaflets are thin and pliable. Trace tricuspid regurgitation. There is insufficient TR jet to estimate RVSP. Pulmonic Valve The pulmonary valve is grossly normal in structure. Trace pulmonic valve regurgitation is present. Great Vessels The aortic root is normal in size. IVC is normal in size and collapses >50% with inspiration. Pericardium There is no pericardial effusion. Other Information Study Quality: Technically Difficult Conclusion Mild LV dilation with moderate to severe reduction in LV systolic function (LVEF 30%). Mild LA dilation. No significant valvular stenosis or regurgitation. Compared to prior study from 09/29/2024, the LV systolic function is further reduced. Ultrasound enhancing agent may be administered to better delineate the LV endocardial borders and estimate LVEF. Clinical correlation is required. Electronically signed by : Ciara Broussard MD 08/06/2025 22:55:00
== END 2025-08-04 23:59 | disposition home or self-care (01) ==
LOC: RT 14:08
PROVIDERS: PCP Nurse Practitioner Family; Visit Provider Internal Medicine
DX: I50.20 Unspecified systolic (congestive) heart failure (principal); R06.00 Dyspnea, unspecified; R93.1 Abnormal findings on diagnostic imaging of heart and coronary circulation
CPT/HCPCS: 93306

== ENCOUNTER 2025-08-23 15:24 | Emergency (ER) | payer MEDICARE, MEDICAID, SELFPAY ==
[2025-08-23] VITALS (8 sets, daily range): BP systolic 99–136; BP diastolic 47–76; PULSE 79–108; RESP 16–22; TEMP 36.6–37; O2SAT 91–99; BMI 28.1
--- NOTE | 2025-08-23 15:41 | XR_ITS ---
PROCEDURE INFORMATION: Exam: XR Right Shoulder Exam date and time: 08/23/2025 4:15 PM Age: 65 years old Clinical indication: Injury or trauma; Fall; Blunt trauma (contusions or hematomas); Shoulder; Right; Additional info: Right shoulder tenderness TECHNIQUE: Imaging protocol: Radiologic exam of the right shoulder. Views: 1 view. COMPARISON: CR XR HUMERUS RT 08/23/2025 4:15 PM FINDINGS: Bones/joints: Transverse impacted fracture of the surgical neck of the humerus. There is acute angulation. Multiple fragments are noted. The humeral head is inferiorly dislocated. Soft tissues: Normal. IMPRESSION: Transverse impacted fracture of the surgical neck of the humerus. There is acute angulation. Multiple fragments are noted. The humeral head is inferiorly dislocated.
--- NOTE | 2025-08-23 15:41 | XR_ITS ---
PROCEDURE INFORMATION: Exam: XR Chest Exam date and time: 08/23/2025 4:15 PM Age: 65 years old Clinical indication: Injury or trauma; Fall; Blunt trauma (contusions or hematomas) TECHNIQUE: Imaging protocol: Radiologic exam of the chest. Views: 1 view. COMPARISON: CT CHEST W CON 07/01/2023 7:56 AM FINDINGS: Lungs: Unremarkable. No consolidation. Pleural spaces: Unremarkable. No pleural effusion. No pneumothorax. Heart/Mediastinum: Unremarkable. No cardiomegaly. Bones/joints: Unremarkable. IMPRESSION: No acute findings.
--- NOTE | 2025-08-23 15:41 | XR_ITS ---
PROCEDURE INFORMATION: Exam: XR Right Knee Exam date and time: 08/23/2025 4:15 PM Age: 65 years old Clinical indication: Injury or trauma; Fall; Blunt trauma; Knee; Right; Additional info: Tenderness S/P fall TECHNIQUE: Imaging protocol: Radiologic exam of the right knee. Views: 3 views. COMPARISON: CR XR FEMUR RT 2V 08/23/2025 4:15 PM FINDINGS: Bones/joints: Osteoarthritic changes are noted with marginal osteophytes, narrowing of the patellofemoral compartment is noted. There is also narrowing of the medial joint compartment. No bony fractures are noted. Soft tissues: Normal. IMPRESSION: Moderate to severe degenerative changes, no acute fracture or dislocation.
--- NOTE | 2025-08-23 15:41 | XR_ITS ---
PROCEDURE INFORMATION: Exam: XR Right Femur Exam date and time: 08/23/2025 4:15 PM Age: 65 years old Clinical indication: Injury or trauma; Fall; Blunt trauma; Thigh or upper leg; Right; Additional info: Tenderness S/P fall TECHNIQUE: Imaging protocol: Radiologic exam of the right femur. Views: 2 views. COMPARISON: CT ABDOMEN PELVIS W CON 07/01/2023 7:56 AM FINDINGS: Bones/joints: Osteoarthritic changes of the knee. No acute fracture. Soft tissues: Unremarkable. IMPRESSION: No acute findings.
--- NOTE | 2025-08-23 15:41 | CT_ITS ---
PROCEDURE INFORMATION: Exam: CT Cervical Spine Without Contrast Exam date and time: 08/23/2025 4:15 PM Age: 65 years old Clinical indication: Injury or trauma; Fall; Blunt trauma; Additional info: Midline cervical spine tenderness TECHNIQUE: Imaging protocol: Computed tomography of the cervical spine without contrast. Radiation optimization: All CT scans at this facility use at least one of these dose optimization techniques: automated exposure control; mA and/or kV adjustment per patient size (includes targeted exams where dose is matched to clinical indication); or iterative reconstruction. COMPARISON: CT HEAD/BRAIN WO CON 08/23/2025 4:13 PM FINDINGS: Bones: Diffuse cervical spondylosis is noted. Hypertrophic changes of the facet present bilaterally. Discs/Spinal canal/Neural foramina: Narrowing of multiple intervertebral disc spaces are seen. Moderate neural foraminal narrowing is also noted. Lungs: Lung apices are normal. Vasculature: No obvious traumatic injury is seen. Soft tissues: Unremarkable. IMPRESSION: 1. No evidence of acute traumatic injury. 2. Diffuse cervical spondylosis.
--- NOTE | 2025-08-23 15:41 | CT_ITS ---
PROCEDURE INFORMATION: Exam: CT Head Without Contrast Exam date and time: 08/23/2025 4:13 PM Age: 65 years old Clinical indication: Injury or trauma; Fall; Blunt trauma (contusions or hematomas) TECHNIQUE: Imaging protocol: Computed tomography of the head without contrast. Radiation optimization: All CT scans at this facility use at least one of these dose optimization techniques: automated exposure control; mA and/or kV adjustment per patient size (includes targeted exams where dose is matched to clinical indication); or iterative reconstruction. COMPARISON: US CA CAROTID DUPLEX BI 05/06/2025 1:52 PM FINDINGS: Brain: There is diffuse prominence of the cerebral sulci, cisterns, and ventricles consistent with atrophy. No intra or extra-axial fluid collections are noted. No mass or mass effect is seen. Periventricular white matter hypoattenuation is seen consistent with chronic small vessel disease. Cerebral ventricles: No ventriculomegaly. Paranasal sinuses: Visualized sinuses are unremarkable. No fluid levels. Mastoid air cells: Visualized mastoid air cells are well aerated. Bones: Unremarkable. No acute fracture. Soft tissues: Unremarkable. IMPRESSION: No acute process noted.
--- NOTE | 2025-08-23 15:41 | XR_ITS ---
PROCEDURE INFORMATION: Exam: XR Right Humerus Exam date and time: 08/23/2025 4:15 PM Age: 65 years old Clinical indication: Injury or trauma; Fall; Blunt trauma (contusions or hematomas); Arm, upper; Right; Additional info: Tenderness S/P fall TECHNIQUE: Imaging protocol: Radiologic exam of the right humerus. Views: 2 or more views. COMPARISON: CR XR SHOULDER RT 1V 08/23/2025 4:15 PM FINDINGS: Bones/joints: Transverse fracture through the neck of the humerus. There is acute angulation and likely impaction at the fracture site. Soft tissues: Normal. IMPRESSION: Transverse fracture through the neck of the humerus. There is acute angulation and likely impaction at the fracture site.
--- NOTE | 2025-08-23 15:41 | XR_ITS ---
PROCEDURE INFORMATION: Exam: XR Left Elbow Exam date and time: 08/23/2025 4:15 PM Age: 65 years old Clinical indication: Injury or trauma; Fall; Blunt trauma (contusions or hematomas); Elbow; Left; Additional info: Tenderness S/P fall TECHNIQUE: Imaging protocol: Radiologic exam of the left elbow. Views: 1 or 2 views. COMPARISON: No relevant prior studies available. FINDINGS: Bones/joints: Normal. Limited single view and partial extension. Soft tissues: Normal. IMPRESSION: No acute findings.
--- NOTE | 2025-08-23 15:41 | XR_ITS ---
PROCEDURE INFORMATION: Exam: XR Right Hip Exam date and time: 08/23/2025 4:15 PM Age: 65 years old Clinical indication: Injury or trauma; Fall; Blunt trauma (contusions or hematomas); Right; Hip; Additional info: Tenderness S/P fall TECHNIQUE: Imaging protocol: Radiologic exam of the right hip. Views: 2 or 3 views hip with pelvis when performed. COMPARISON: CT ABDOMEN PELVIS W CON 07/01/2023 7:56 AM FINDINGS: Bones/joints: Unremarkable. No acute fracture. Soft tissues: Unremarkable. IMPRESSION: No acute findings.
[2025-08-23 15:52] LABS: Hematocrit 38.6 % (37.0-47.0); Hemoglobin 13.1 g/dL (12.2-16.2); Immature Granulocytes % 0.3 %; Mean Corpuscular HGB Conc 33.9 g/dL (31.8-35.4); Mean Corpuscular Hemoglobin 31.4 pg (27.0-31.2); Mean Corpuscular Volume 92.6 fl (81-99); Nucleated Red Blood Cells % 0 %; Platelet Count 262 K/mm3 (142-424); Red Blood Count 4.17 M/mm3 (4.20-5.40); Red Cell Distribution Width-SD 40.2 fL; White Blood Count 13.4 K/mm3 (4.8-10.8)
--- NOTE | 2025-08-23 15:57 | ECG_ITS ---
APPROVED REPORT Exam: Resting ECG HR:103 bpm ECG Measurements Heart Rate 103 AXES TN 163 P 140 QRSd 102 QRS 81 QT 353 T 160 QTc 413 Conclusion Sinus tachycardia without acute ST or T wave changes concerning for ischemia Electronically signed by : Julianna Copeland, 08/24/2025 00:39:41
[2025-08-23] MEDS: MORPHINE 4MG/ML SYRINGE 4 MG IV (15:59)
[2025-08-23] MEDS: ONDANSETRON 4MG/2ML VIAL 4 MG IV (15:59)
[2025-08-23 16:01] LABS: Albumin Level 4.8 g/dl (3.5-5.0); Chloride 102 mmol/L (98-107); Potassium 4.5 mmoL/L (3.5-5.1); Sodium 138 mmol/L (136-145)
[2025-08-23 16:04] LABS: Alanine Aminotransferase 49 U/L (12-78); Albumin/Globulin Ratio 1.5 (1.1-1.8); Alkaline Phosphatase 74 U/L (38-126); Anion Gap 19.5 mEq/L (5-15); Aspartate Amino Transferase 50 U/L (14-36); Bilirubin,Total 1.8 mg/dl (0.2-1.3); Blood Urea Nitrogen 26 mg/dl (7-17); Calcium 9.4 mg/dl (8.4-10.2); Carbon Dioxide 21 mmol/L (22.0-30.0); Creatinine Clearance Estimated 67 mL/min (50-200); Creatinine,Serum 1.00 mg/dl (0.52-1.04); Estimated Glomerular Filt Rate 55 ml/min (>60); GFR (African American) 67 ML/MIN (>60); Globulin 3.2 g/dL (1.3-3.2); Glucose 260 mg/dl (74-100); Magnesium 2.0 mg/dl (1.6-2.3); Total Protein,Serum 8.0 g/dl (6.3-8.2)
[2025-08-23 16:12] LABS: INR 1.04 (0.9-1.1); Prothrombin Time 11.5 seconds (10.1-12.5)
[2025-08-23 16:23] LABS: Troponin I < 0.01 ng/ml (0.00-0.034)
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
--- NOTE | 2025-08-23 16:51 | PC.NURSE ---
speaking with -ortho
--- NOTE | 2025-08-23 17:04 | CT_ITS ---
PROCEDURE INFORMATION: Exam: CT Thoracic Spine Without Contrast Exam date and time: 08/23/2025 5:47 PM Age: 65 years old Clinical indication: Injury or trauma; Additional info: S/P fall TECHNIQUE: Imaging protocol: Computed tomography of the thoracic spine without contrast. Radiation optimization: All CT scans at this facility use at least one of these dose optimization techniques: automated exposure control; mA and/or kV adjustment per patient size (includes targeted exams where dose is matched to clinical indication); or iterative reconstruction. COMPARISON: CT CERVICAL SPINE WO CON 08/23/2025 4:15 PM FINDINGS: Bones/joints: Moderate kyphosis. Diffuse degenerative changes of the thoracic spine. No acute fracture or dislocation noted. Multiple marginal osteophytes are present. Soft tissues: Unremarkable. IMPRESSION: 1. No acute traumatic injury. 2. Diffuse degenerative changes with moderate kyphosis.
--- NOTE | 2025-08-23 17:04 | CT_ITS ---
PROCEDURE INFORMATION: Exam: CT Lumbar Spine Without Contrast Exam date and time: 08/23/2025 5:49 PM Age: 65 years old Clinical indication: Injury or trauma; Fall; Blunt trauma (contusions or hematomas); Additional info: S/P fall TECHNIQUE: Imaging protocol: Computed tomography of the lumbar spine without contrast. Radiation optimization: All CT scans at this facility use at least one of these dose optimization techniques: automated exposure control; mA and/or kV adjustment per patient size (includes targeted exams where dose is matched to clinical indication); or iterative reconstruction. COMPARISON: CT THORACIC SPINE WO CON 08/23/2025 5:47 PM FINDINGS: Bones/joints: Diffuse degenerative disc disease, most prominent at L5-S1 with vacuum disc phenomena, there is a levo concave mild to moderate scoliosis centered at the L3-L4 interspace. Multiple marginal osteophytes are noted. No acute fracture or dislocation is identified. Soft tissues: Unremarkable. IMPRESSION: 1. No acute traumatic injury noted. 2. Moderate degenerative disc disease as described.
--- NOTE | 2025-08-23 17:04 | CT_ITS ---
PROCEDURE INFORMATION: Exam: CTA Abdomen and Pelvis With Contrast Exam date and time: 08/23/2025 5:52 PM Age: 65 years old Clinical indication: Injury or trauma; Additional info: Fall, eval for traumatic injuries TECHNIQUE: Imaging protocol: Computed tomographic angiography of the abdomen and pelvis with contrast. Exam focused on the arteries. 3D rendering (Not supervised by radiologist): MIP and/or 3D reconstructed images were created by the technologist. Radiation optimization: All CT scans at this facility use at least one of these dose optimization techniques: automated exposure control; mA and/or kV adjustment per patient size (includes targeted exams where dose is matched to clinical indication); or iterative reconstruction. Contrast material: ISO 370; Contrast volume: 80 ml; Contrast route: INTRAVENOUS (IV); COMPARISON: CT ABDOMEN PELVIS W CON 07/01/2023 7:56 AM FINDINGS: Aorta: No aortic aneurysm. No aortic dissection. Celiac and mesenteric arteries: No occlusion or significant stenosis. Renal arteries: No occlusion or significant stenosis. Right iliac arteries: No occlusion or significant stenosis. Left iliac arteries: No occlusion or significant stenosis. Liver: No mass. Gallbladder and biliary ducts: Cholecystectomy. Pancreas: Unremarkable. No mass. No ductal dilation. Spleen: Unremarkable. No splenomegaly. Adrenal glands: Unremarkable. No mass. Kidneys and ureters: Unremarkable. No solid mass. No hydronephrosis. Stomach and bowel: Unremarkable. No obstruction. No mucosal thickening. Appendix: No evidence of appendicitis. Intraperitoneal space: Unremarkable. No free air. No significant fluid collection. Lymph nodes: Unremarkable. No enlarged lymph nodes. Urinary bladder: The bladder is moderately distended, no evidence of bladder wall thickening is noted. Reproductive: Unremarkable as visualized. Bones/joints: No acute fracture. Soft tissues: Unremarkable. IMPRESSION: 1. No acute traumatic injury identified. 2. Cholecystectomy. 3. Moderately distended bladder, consider decompression if patient is unable to void.
--- NOTE | 2025-08-23 17:04 | CT_ITS ---
PROCEDURE INFORMATION: Exam: CTA Chest With Contrast Exam date and time: 08/23/2025 5:52 PM Age: 65 years old Clinical indication: Injury or trauma; Additional info: Eval for rib fractures, S/P fall TECHNIQUE: Imaging protocol: Computed tomographic angiography of the chest with contrast. Exam focused on the arteries. 3D rendering (Not supervised by radiologist): MIP and/or 3D reconstructed images were created by the technologist. Radiation optimization: All CT scans at this facility use at least one of these dose optimization techniques: automated exposure control; mA and/or kV adjustment per patient size (includes targeted exams where dose is matched to clinical indication); or iterative reconstruction. Contrast material: ISO 370; Contrast volume: 80 ml; Contrast route: INTRAVENOUS (IV); COMPARISON: CT CHEST W CON 07/01/2023 7:56 AM FINDINGS: Pulmonary arteries: Normal. No pulmonary emboli. Aorta: Unremarkable. No aortic aneurysm. No aortic dissection. Lungs: Benign 7 mm granuloma in the left lower lobe. Pleural spaces: Unremarkable. No pneumothorax. No pleural effusion. Heart: There is left ventricular dilatation present. Coronary arteries: No coronary calcium noted. Lymph nodes: Unremarkable. No enlarged lymph nodes. Bones/joints: Unremarkable. No acute fracture. Soft tissues: Unremarkable. IMPRESSION: 1. No evidence of pulmonary embolus or other acute process. 2. Left ventricular dilatation.
--- NOTE | 2025-08-23 17:04 | PC.NURSE ---
Called [facility] per Dr Copeland to see about transferring this pt with a fx to the shoulder. Images were powershared and [facility] was checking to see if they had a provider to talk to Dr Copeland. Dr Keith is speaking with Dr Copeland at this time
--- NOTE | 2025-08-23 17:07 | PC.NURSE ---
is speaking with Dr.Sargent BUSTAMANTE
[2025-08-23] MEDS: LACTATED RINGERS 1000ML 1,000 ML 999 ML IV (17:09)
--- NOTE | 2025-08-23 17:11 | PC.NURSE ---
Accepted by pending trauma CT's.
[2025-08-23] MEDS: MORPHINE 2MG/ML SYRINGE 4 MG IV (17:12)
[2025-08-23 17:42] LABS: Lipase 49 U/L (23-300)
[2025-08-23] MEDS: SODIUM CHLORIDE 0.9% 10ML SYR (RAD ONLY) 10 ML IV (17:44)
[2025-08-23] MEDS: IOPAMIDOL-370 (76%);100ML BOTTLE 70 ML IV (17:44)
[2025-08-23] MEDS: 0.9 % SODIUM CHLORIDE 50 ML VIAL IV (17:44)
[2025-08-23] MEDS: MIDAZOLAM 2MG/2ML VIAL 1 MG IV (18:47)
[2025-08-23] MEDS: FENTANYL 250MCG/5ML VIAL 50 MCG IV (18:48)
--- NOTE | 2025-08-23 18:59 | XR_ITS ---
PROCEDURE INFORMATION: Exam: XR Right Shoulder Exam date and time: 08/23/2025 7:31 PM Age: 65 years old Clinical indication: Other: After sling placement TECHNIQUE: Imaging protocol: Radiologic exam of the right shoulder. Views: 1 view. COMPARISON: CR XR SHOULDER RT 1V 08/23/2025 4:15 PM FINDINGS: Bones/joints: Stable transverse fracture through the neck of the humerus with lateral displacement and acute angulation. Soft tissues: Normal. IMPRESSION: Stable transverse fracture through the neck of the humerus with lateral displacement and acute angulation.
[2025-08-23 20:17] LABS: Troponin I < 0.01 ng/ml (0.00-0.034)
== END 2025-08-23 20:53 | disposition other institution (70) ==
PROVIDERS: Emergency Provider Student in an Organized Health Care Education/Training Program
DX: S42.211A Unspecified displaced fracture of surgical neck of right humerus, initial encounter for closed fracture (principal); S43.011A Anterior subluxation of right humerus, initial encounter; R07.89 Other chest pain; R00.0 Tachycardia, unspecified; W01.190A Fall on same level from slipping, tripping and stumbling with subsequent striking against furniture, initial encounter
CPT/HCPCS: 70450; 71045; 71275; 72125; 72128; 72131; 73020; 73060; 73070; 73502; 73552; 73562; 74174; 80053; 83690; 83735; 84484; 85025; 85610; 93005; 96361; 96374; 96375; 96376; 99285; J2250; J2270; J2405; J3010; J7120; Q9967

== ENCOUNTER 2025-09-28 11:30 | Outpatient (CLI) | payer MEDICARE, MEDICAID, SELFPAY ==
--- OUTSIDE RECORDS SUMMARY | 2025-08-23 20:41 | XMS_ITS | Encounter Summary ---
Author Organization Healthcare Address [address] [id number] Care Team Providers Care Senior Radiation Protection Technician Name Role Phone Greta Simpson DO Unavailable [phone] Brad Hassan MD Primary Care Provider [phone] Reason for Referral * Consultation (Routine) - Authorized Specialty Diagnoses / Procedures Referred By Contac t Referred To Contact Neurology Diagnoses Fall, initial encounter Delirium Rodney Dwyer APRN [address] [place] [address] Phone: tel: fax: [facility] [address] [facility], 1st [place] [address] Phone: tel: fax: Referral ID Status Reason Start Date Expiration Date Visits Requested Visits Authorized [id number] Authorized Specialty Services Required 5 03/03/2027 1 1 Reason for Visit * Reason Comments Fall * Auth/Cert (Routine) Specialty Diagnoses / Procedures Referred By Contac t Referred To Contact Diagnoses Fall from standing, initial encounter Fall, laid on shoulder all night, right shoulder ball and socket joint fx Nikole Mann MD [address] [facility] [address] [place] [address] Phone: tel: fax: [facility] Emergency Department [address] [place] [address] Phone: tel: Referral ID Status Reason Start Date Expiration Date Visits Re quested Visits Authorized [id number] 1 1 Encounter Details Date Type Department Care Team (Latest Contact Info) Description 08/23/2025 9:41 PM EDT - 09/01/2025 3:35 PM EDT Hospital Encounter [facility] Inpatient [address] [id number] Flaquito Lerma MD [address] [place] [address] Kwesi Yang MD [address] [place] [address] Nikole Mann MD [address] [facility] [address] [place] [address] Juan Otero MD [address] [facility] [address] [place] [address] Caro Barry MD [address] [facility] [place] [address] Ester Vivas MD [address] [facility] [place] [address] Izzy Griffith MD [address] [place] [address] Fall, initial encounter (Primary Dx); Fx humeral neck, right, closed, initial encounter; Delirium Discharge Disposition: Senior Care Facility Social History Tobacco Use Types Packs/Day [...] time in the past 12 m [facility], were you homeless or living in a long-term (including now)? No 08/24/[address] [facility] [address] 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 SGT: BRANDON Saturday Clinic as needed; [address] [place] [address] First Floor, [address] [address], #[phone]. Questions or Concerns and Appointments If there are questions or concerns after discharge from the hospital, please call [phone] and ask for Blue Surgery Nurse. Working hours are Saturday - Saturday 8:00 AM to 4:00 PM. After hours, weekends and holidays please call [phone] and ask for the resident contracting executive for Blue Surgery. For appointments please call [phone]. Medication requests should be made between the hours of 9:00 AM to 3:00 PM Saturday thru Saturday. Please note that based upon recent changes to [place] law related to prescribing opioid pain medications, [...] tablets by mouth every 8 hours. 09/01/2025 5 naloxone (Narcan) 4 mg/0.1 mL nasal spray [...] tablet Take 1 tablet by mouth daily. senna-docusate (Shira-Colace) 8.6-50 MG tablet Take 1 tablet by mouth 2 times a day. 09/01/2025 5 spironolactone (Aldactone) 25 MG tablet Take 0.5 [...] to 3 days. 18 tablet 09/01/2025 5 documented as of this encounter [...] Note Madyson Machado 65 y.o. female CSN: [id number] Admission: 08/23/2025 9:41 PM Primary Problem: Fall Primary Concrete Paver: Primary Caregiver: Self Assistance Available at Discharge: Current Outpatient/Agency/Support Group: DME Availability of Care Givers (#Hours): 24 hours Housing Circumstances-Z Codes: Housing Circumstances (select all that apply): Low Income (101-300% Federal Poverty Guidlines) - Z596 Patient Referred to Financial or Community Resources: Discharge Facility/Level of Care Needs: Discharge Facility/Level of Care Needs: 3-Senior Care Facility Patient's Choice of Community Agency(s): Patient/Family Anticipated Services at Transition: Patient/Family Anticipated Services at Transition: long term, rehabilitation services DME/Equipment Needed after Discharge: Equipment Currently Used at Home: cane, straight Readmission Within the Last 30 Days: Readmission Within the Last 30 Days: no previous admission in last 30 days Medicare Documentation: Follow-up: [address] [address] Follow up Primary care provider (PCP) Brad Hassan MD [address] [place] [address] Julianna Copeland S, DO [address] [facility] [phone] [facility] [address], 1st Floor [address] [facility] [address] Discharge Transportation: Transportation Anticipated: medical transport Transportation Home at Discharge: Medical Transport Has discharge transport been arranged?: Yes What day is the transport expected?: 09/01/25 What time is the transport expected?: 1500 Follow Up Transport: Transportation Needed to Follow up Appoinments: Medical Transport Additional Comments: Per SGT provider, pt is medically ready for d/c to [facility] this day. Pt has been accepted to [facility] and has a bed and insurance auth this day. [facility] stretcher transport scheduled for bedside pickup at 15:00. RN to call report to [phone]. Pt daughter is aware and agreeable to [...] controlled substances: ? Drug Enforcement Agency (JONATHON): http://www.deadiversion.TranSiCoTouchotel.gov/drug_disposal/takeback/index.htm ? National Association of Drug Diversion Investigators (NADDI): http://rxdrugdropbox.org/ ? [place] Office of Drug Control Policy: http://odcp.[place].gov/Prescription+Drug+Drop+Box+Sites.htm Are [...] look blue or purple What is a [facility] report? [facility] is a system that tracks prescriptions of controlled substances in [place]. The [facility] report tells your doctor if you have been prescribed controlled substances in the past. Doctors must get a PITO report before prescribing controlled substances. What can I do if the information in my PITO report is wrong? You or your doctor may contact the dispenser who reported the information to [facility]. If the dispenser agrees that the information should be changed, he or she can fix the PITO report. However, the dispenser may certify that the report is correct. If that is the case, you or your doctor may then call the [place] Drug Enforcement and Professional Practices Branch at .This will start an investigation of the error. * [facility] - Declan Chew RN - 09/01/2025 1:23 PM EDT Images from the original note were not included. 1087 Oxycodone Oral Tablet, Immediate Release Brand Names: Oxaydo, Roxicodone What is this medicine? Oxycodone (ew-x-HCL-done) is an opioid pain reliever. It is used to treat moderate to severe pain. What should I tell my health care provider before I take this medicine? They need to know if you have any of these conditions: ? Rob's disease ? Brain tumor or head injury [...] a special medication guide each time you shredder picker this medicine. ? Overdosage: Taking too much [...] should report to your doctor or health resident care manager rn as soon as possible: ? allergic reactions [...] attention (report to your doctor or health resident care manager rn if they continue or are bothersome): ? constipation ? dry mouth ? itching ? nausea, vomiting ? upset stomach This list may not describe all possible side effects. Call your doctor for medical advice about side effects. You may report side effects to FDA at 0-431-AXD-6791. Where should I keep my medicine? This [...] location. To find a disposal location, visit [facility] [employer]/[facility]/[place]. If you cannot take unused medicine to a proper location, you can mix the medicine with coffee grounds or fausto litter and dispose of in the normal trash. Your doctor may also give you a special disposal pouch for this medicine. You can also flush the medicine down the toilet. * Elo Alcantar - Declan Chew RN - 09/01/2025 1:23 PM EDT Images from the original note were not included. [id number] Naloxone Nasal Roebuck WHY is this medicine prescribed? Prescription and [...] pharmacist for the instructions or visit the resin mixer's website to get the instructions. You should [...] or doctor for a copy of the resin mixer's information for the patient. Are there OTHER [...] and out of their sight and reach. https://www.upandaway.org Dispose of unneeded medications in a way [...] of all of the prescription and nonprescription (mgbf-xno-jjjfqoi) medicines, vitamins, minerals, and dietary supplements you [...] or pharmacist about specific clinical use. The [place] [employer]. represents that the information provided hereunder was formulated with a reasonable standard of care, and in conformity with professional standards in the field. The [place] [employer]. makes no representations or warranties, express or implied, including, but not limited to, any implied warranty of merchantability and/or fitness for a particular purpose, with respect to such information and specifically disclaims all such warranties. Users are advised that decisions regarding drug therapy are complex medical decisions requiring the independent, informed decision of an appropriate health resident care manager rn, and the information is provided for informational purposes only. The entire monograph for a drug should be reviewed for a thorough understanding of the drug's actions, uses and side effects. The [place] [employer] does not endorse or recommend the use of any drug.The information is not a substitute for medical care. AHFS?? Patient Medication Information?. ?? Copyright, 2023. The [place] [employer]-System Pharmacists??, [address] [facility], [address], [place], [place]. All Rights Reserved. Duplication for commercial use must be authorized by [facility]. Selected Revisions: May 23, 2024. AHFS?? Patient Medication Information?. ?? Copyright, 2024 * Discharge Summary - Rodney Dwyer APRN - 09/01/2025 1:19 PM EDT Hospitalization Admit Date/Time: 08/23/2025 9:41 PM Admitting Attending: Nikole Mann Discharge Date: 09/01/25 Discharge Attending Physician: Juan Otero MD PCP name and Address: Brad Hassan MD [address] / [place] [address] Referring provider name and address: Julianna Copeland DO [address] [place] [address] Chief Concern, Brief History of Present Illness, [...] stay, and so will be discharged to [facility] in [place]. DVT prophylaxis: None on discharge Procedures: None [...] 8:30AM @ Orthopaedic Surgery & Sports Medicine; [facility], [address] [place] [address], First Floor, Wing C, [address], [place] [address], # [phone]. SGT: BRANDON Saturday Clinic as needed; [address] [place] [address] First Floor, [address], [place] [address], #[phone]. Questions or Concerns and Appointments If there are questions or concerns after discharge from the hospital, please call [phone] and ask for Blue Surgery Nurse. Working hours are Saturday - Saturday 8:00 AM to 4:00 PM. After hours, weekends and holidays please call [phone] and ask for the resident contracting executive for Blue Surgery. For appointments please call [phone]. Medication requests should be made between the hours of 9:00 AM to 3:00 PM Saturday thru Saturday. Please note that based upon recent changes to [place] law related to prescribing opioid pain medications, [...] Your Medications These medications [place] - [address] [address], [facility] [address] naloxone 4 mg/0.1 mL nasal spray oxyCODONE [...] Center 10/06/2025 9:10 AM Ricki Clark MD [facility] Test Results Pending At Discharge Pertinent Physical [...] Behavior normal. Discharge Disposition/Condition Disposition: Rehab facility (specify)[facility] Condition: Stable (s/sx potential problems absent or manageable) I spent >30 minutes of patient care and instruction time in preparation for this discharge. Cosigned by Juan Otero MD at 09/01/2025 1:34 PM EDT Associated attestation - Juan Otero MD - 09/01/2025 1:34 PM EDT The patient was seen only by Advanced Practice Provider (BRANDON). Juan Otero MD, CYDNEY wool fleece grader Division of Acute Care Surgery * Declan English RN - 09/01/2025 11:01 AM EDT Images from the original note were not included. 16942 Preventing Falls: Making Changes in Your Living [...] you might need to talk to your supervisor building maintenance or homeowners' association about them. ? Have [...] removal. Last Reviewed Date: 2025 00:00:00 ?? 3429-4526 The [employer] All rights reserved. This information is not intended as a substitute for professional medical care. Always follow your healthcare professional's instructions. * Bevaviva OnIR - Declan Chew RN - 09/01/2025 11:01 AM EDT Images from the original note were not included. [id number] Fall Prevention Falls often take place due [...] medical history, your current prescriptions and your hmim-qmv-vpcaitf medicines. As a general rule, the National Platinum on Aging (NCA) recommends taking one-third of [...] often. Last Reviewed Date: 2025 00:00:00 ?? [id number] The [employer] All rights reserved. This information is not intended as a substitute for professional medical care. Always follow your healthcare professional's instructions. * Elo OnIR - Declan Chew RN - 09/01/2025 11:01 AM EDT Images from the original note were not included. 54569 Wearing a Cuff and Collar Sling What [...] part of the sling breaks. * [facility] - Declan Chew RN - 09/01/2025 [...] of your leg. This is also called ?Fchajv-zc-Mzu Weight Bearing,? ?Toe-Touch Weight Bearing,? or ?Foot-Flat [...] heal and have less pain. * Elo SofiaGEETA - Declan Chew RN - 09/01/2025 11:01 AM EDT Images from the original note were not included. 76098 Understanding a Humerus Fracture When you have [...] pain. ? Pain medicines. Taking prescription or wjpa-xot-wbrludc pain medicines may help reduce pain and [...] symptoms. Last Reviewed Date: 2025 00:00:00 ?? 2246-6277 [employer]. All rights reserved. This information is not [...] Note Madyson Machado 65 y.o. female CSN: [id number] Admission: 08/23/2025 9:41 PM Primary Problem: Fall Additional Comments Per SGT provider, pt not medically ready for d/c. Pt pending neuropsych evaluation for decisional capacity, CXR, and EKG. EDUARD updated [facility] [place] liaison and pt daughter. Per [facility] liaison, [...] come back to capacity eval. VSS. NAD. HANDY. On RA, Stated shortness of breath and [...] per patient or nursing. Edited by: Rodney Dwyer APRN at 08/31/2025 5407 Relevant review of systems was obtained as [...] - Bowel regimen - PT/OT - Ortho: NWAustin ARAGON, C/C Dispo: Subacute rehab Edited by: Rodney Dwyer APRN at 08/31/2025 1341 Rodney Dwyer APRN * Progress Notes - Nicolle Raymundo CCC-DEPOT MANAGER - 08/31/2025 12:11 PM EDT Speech Language Pathology Clinical Swallow Initial Evaluation Patient Name: Brigid Machado Age: 65 y.o. Today's Date: 08/31/2025 Recommendations: Easy to chew (IDDSI Level 7) diet w/ thin liquids (Level 0). Meds up to whole w/ puree/pudding. 1:1 for feeding assistance. DEPOT MANAGER will follow. History/Background Information 65 y/o female [...] Accessory (XI): Not assessed Hypoglossal Nerve (XII): WFL Laryngeal Function Exam: Secretion Management: adequate Vocal Quality: adequate Pitch Range: adequate Cough: - Volitional unable to elicit - Reflexive PO did not elicit a cough response Oral Care Completed: no Oral Feeding Trials: Positionin-90 degrees Feeding assistance: intermittent assistance from DEPOT MANAGER or caregiver Consistencies Administered: ice chips, thin liquid via teaspoon, thin liquid via cup, thin liquid via straw, puree via teaspoon, and mechanical soft consistency Oral Stage: adequate labial seal, efficient mastication, adequate oral clearance Pharyngeal Stage: no overt s/s of aspiration 90 mL water test (Alis & Miguel Angel, 2014): not tested this date, pt refused [...] liquid, therefore,meds should be administered in puree/pudding. DEPOT MANAGER to follow to determine readiness for diet texturemodification. If AMS worsens, pt should be made NPO until DEPOT MANAGER clinical re-evaluation. Prognosis: Good for improved function [...] Identify and Manage Fall Risk Flowsheets (Taken 08/31/2025 0745) Safety Promotion/Fall Prevention: activity supervised assistive device/personal [...] Optimize Mobility Flowsheets Taken 08/31/2025744 by Yumiko Mays RN Activity Management: activity adjusted per tolerance Taken 08/25/2025 013 by Aminata Jones RN Positioning/Transfer Devices: repositioning [...] C+C. Please page ORF with any questions: [phone] Talon Ramos Orthopaedic Surgery and Sports Medicine [facility] * Care Plan - Bety [...] while inpatient * Progress Notes - Kandace Su RN - 08/30/2025 12:45 PM EDT Per MD, patient medically to DC to [facility]. KATTY spoke with patient's daughter Latosha Banerjee ([phone]) and she is still agreeable to [facility]. However, she said her and patient wanted surgery on patient's arm done before rehab. QUINTIN Bojorquez checking with Ortho. KATTY spoke with [facility] liaison Sumi ([phone]) to update and and she is checking on bed and will call KATTY back JYOTSNA. * Progress Notes - Shon Treadwell R - 08/30/2025 12:24 PM EDT Physical [...] all needs met. RN req uesting self-releasing [place] strap be donned. RN aware of session [...] functional mobility, functional strength, and activity tolerance. WEB OPERATIONS SPECIALIST provided verbal and tactile cues to facilitate [...] flexion. Bed Mobility Exam: Scooting/Bridging Level of Richardson: Minimum assist (75% patient's effort) Physical/Nonphysical Assist: Verbal Cues, Minimal cues Assistive Device: Other (UPKEEP MECHANIC/LUE) Bed Mobility Exam: Supine to Sit Level of Richardson: Minimum assist (75% patient's effort) Physical/Nonphysical Assist: Verbal Cues, Nonverbal cues (demo/gestures), HOB elevated, Moderate cues Assistive Device: Other (UPKEEP MECHANIC/LUE and trunk) Transfers Transfer Interventions: Provided cues for proper hand placement, NWB RUE, BLE set-up, forward trunkleans to initiate coming to stand, and safe descent to sit. Transfer Exam: Sit to stand Level of Richardson: Minimum assist (75% patient's effort) Physical/Nonphysical Assist: Verbal Cues, Nonverbal cues (demo/gestures), Moderate cues Assistive Device: Hand held assist Transfer Exam: Stand to Sit Level of Richardson: Minimum assist (75% patient's effort) Physical/Nonphysical Assist: [...] VTE (Venous Thromboembolism) Risk Flowsheets (Taken 08/30/2025 1052) VTE Prevention/Management: bilateral foot pump device off SCDs (sequential compression devices) off medication Intervention: Prevent Infection Flowsheets (Taken 08/30/2025 1052) Infection Prevention: environmental surveillance performed hand hygiene [...] Identify and Manage Contributors Flowsheets (Taken 08/25/2025 013 by Aminata Jones RN) Medication Review/Management: medications reviewed high-risk medications identified [...] Device Utilized: front wheel walker Taken 08/25/2025 013 by Aminata Jones RN Positioning/Transfer Devices: repositioning sheet pillows Problem: Confusion Acute Goal: Optimal Cognitive Function Outcome: Ongoing, Progressing Intervention: Minimize Contributing Factors Flowsheets Taken 08/30/2025 1052 by Yumiko Mays RN Environment Familiarity/Consistency: daily routine followed Taken 08/26/2025 0833 by Esetlla Mueller RN Reorientation Measures: calendar in view [...] Edited by: Leroy Roa PA at 08/30/2025 0998 Relevant review of systems was obtained as [...] Possible orthostatic fall Admit to T 6 [facility] 08/24 Dizziness Present on Admission: [...] QUINTIN Quigley * Care Plan - Bety Paz RN - 08/29/2025 10:53 PM EDT Problem: [...] Orthopaedic Surgery and Sports Medicine Orthopedic Reconstructiion (MRAAVILLA) Service Pager: [phone] Orthopedic Trauma (ORF) Service Pager: [phone] Cosigned by Ricki Clark MD at 08/30/2025 [...] reduction at [facility] Ortho following, [facility] on 08/27, operative plans pending after discussion with attending on 08/29 * Assessment & Plan Note - Stephen Lundberg APRN - 08/29/2025 11:07 AM EDT Associated Problem(s): Fall from standing, initial encounter (Resolved 08/31/2025) Possible orthostatic fall Admit to SGT 6 Tertiary 08/24 * Assessment & Plan Note - Setphen Lundberg APRN - 08/29/2025 11:07 AM EDT [...] APRN - 08/29/2025 8:03 AM EDT 08/29/25 Carltonnoraemiliana Carter HPI Brigid Machado is a 65 y/o [...] Last BM was yesterday. Edited by: Stephen Lundberg APRN at 08/29/2025 1114 Relevant review of systems [...] reduction at [facility] Ortho following, appreciate recs [facility] NW[facility] F/u x-rays on 08/27, operative plans pending after discussion with attending on 08/29 Fall from standing, initial encounter Present on Admission: Yes Possible orthostatic fall Admit to [facility] 08/24 Dizziness Present on Admission: [...] 08/29/2025 11:38 AM EDT Associated attestation - Catherine Angeline AVA Culp, DEJUAN - 08/29/2025 11:38 AM EDT I saw and evaluated the patient with the SAFETY DEPOSIT CLERK student. I discussed the case with the SAFETY DEPOSIT CLERK student and agree with the findings and plan as documented. I personally performed the Exam and Medical Decision Making. * Care Plan - Bety Paz RN - 08/28/2025 9:57 PM EDT Problem: Adult Inpatient Plan of Care Goal: Plan of Care Review Outcome: Ongoing, Progressing Flowsheets (Taken 08/28/2025948 by Vivian Keller RN) Progress: improving Plan [...] reduction at OSH Ortho following, appreciate recs [facility] NWB RUE F/u x-rays on 08/27, operative [...] Edited by: Jaida Shipman PA at 08/28/2025 2467 Relevant review of systems was obtained as [...] reduction at [facility] Ortho following, appreciate recs [facility] F/u [facility]-rays on 08/27, [...] Edited by: Jaida Shipman PA at 08/28/2025 8694 QUINTIN Redman * Assessment & Plan Note - Angeline Alexander APRN, DEJUAN - 08/28/2025 1:09 PM EDT Associated Problem(s): 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 female CSN: [id number] Room/Bed 230/230A Nutrition evaluation type: assessment Reason for evaluation: [facility] Hospital course: 65 y o F [...] (98.2 ??F) Oxygen Therapy: None (Room air) [place] Coma Scale Score: 15 Salvador Scale Score: [...] 1 oz) Estimated Needs: Kcal: 25-30 kcal/kg (0416-4159 kcal/d) Current Nutrition Intake: Diet: Consistent CHO 2 Supplements: none Intake: no po intake recorded since admit 4 days ago Nutrition Support: None at this time Diet Experience & Nutrition History: Diet Education: Will monitor Pertinent Home Medications: Cinnamon, Jardiance, [place]-3, Prilosec, Pravachol, Aldactone, Mounjaro Nutrition Focused Physical [...] on follow up Acuity Level: 2 Sumi Stark, RD, LD [1] Past Medical History: Diagnosis [...] Note Madyson Machado 65 y.o. female CSN: [id number] Admission: 08/23/2025 9:41 PM Primary Problem: Fall from standing, initial encounter Additional Comments Per SGT provider, plan for neuropsych evaluation to determine decisional capacity. Pt has been clinically accepted to [facility] for short-term rehab and will require insurance auth prior to admission. SW s/w pt daughter this day who reports she is uncertain if pt family will be able to provide assistance at home and pt may require LTC in nursing facility. [facility] and SW will need to expand referrals if family is needing LTC. SW will continue to follow. Kandace Briesno * Assessment & Plan Note - Jaida [...] reduction at OSH Ortho following, appreciate recs [facility] NWB RUE F/u x-rays on 08/27, operative [...] PA - 08/27/2025 2:26 PM EDT 08/27/25 Madyson Machado HPI Brigid Machado is a [...] x 5.7 x 11.2 cm solid/cystic areas, [place] 8 - MIKE/BSO 08/08/2023: Mitotically active cellular [...] 1602 QUINTIN Redman * Progress Notes - Greta Doty - 08/27/2025 10:30 AM EDT Physical Therapy Treatment Patient Name: Brigid Machado Today's Date: 08/27/2025 PT Discharge Recommendations: Subacute rehab Equipment Recommended: Defer to facility Total Session Time: 53 minutes Subjective Pt was agreeable to therapy session. Pt oriented to person, hospital, year, as well as month with increased time. Participants in Care Family/Caregiver Present: No Turf Farm Worker: Not Applicable Presentation Oxygen Therapy: None (Room [...] Mobility Bed Mobility Exam: Scooting/Bridging Level of Richardson: Minimum assist (75% patient's effort) (seated scooting to EOB) Physical/Nonphysical Assist: Verbal Cues, Minimal cues Assistive Device: Bed rails (L UE; drawsheet) Bed Mobility Exam: Supine to Sit Level of Richardson: Minimum assist (75% patient's effort) Physical/Nonphysical Assist: Verbal Cues, Nonverbal cues (demo/gestures), HOB elevated, Additional assist utilized for safety, Moderate cues Assistive Device: Bed rails (L UE) Bed Mobility Exam: Sit to Supine Level of Richardson: Minimum assist (75% patient's effort) Physical/Nonphysical Assist: Verbal Cues, Nonverbal cues (demo/gestures), Additional assist utilized for safety, Moderate cues Assistive Device: Bed rails, Other (L UE) Transfers Transfer Exam: Sit to stand Level of Richardson: Minimum assist (75% patient's effort) Physical/Nonphysical Assist: Verbal Cues, Nonverbal cues (demo/gestures), Additional assist utilized for safety, Moderate cues Assistive Device: Hand held assist (LUE) Transfer Exam: Stand to Sit Level of Richardson: Minimum assist (75% patient's effort) Physical/Nonphysical Assist: Verbal Cues, Nonverbal cues (demo/gestures), Additional assist utilized for safety, Moderate cues Assistive Device: Hand held assist (LUE) Transfer Exam: Bed to Chair/Chair to Bed Level of Richardson: Minimum assist (75% patient's effort) Physical/Nonphysical Assist: Verbal Cues, Moderate cues, Nonverbal cues (demo/gestures), Additionalassist utilized for safety Type of Transfer: Sidesteps Assistive Device: Hand held assist (LUE) Toilet Transfer Level of Richardson: Minimum assist (75% patient's effort) Physical/Nonphysical Assist: [...] session. Participants in Care Family/Caregiver Present: No Turf Farm Worker: Not Applicable Presentation Oxygen Therapy: None (Room [...] Mobility Bed Mobility Exam: Scooting/Bridging Level of Richardson: Minimum assist (75% patient's effort) (seated scooting to EOB) Physical/Nonphysical Assist: Verbal Cues, Minimal cues Assistive Device: Bed rails, Other (drawsheet) Bed Mobility Exam: Supine to Sit Level of Richardson: Minimum assist (75% patient's effort) Physical/Nonphysical Assist: Verbal Cues, Nonverbal cues (demo/gestures), HOB elevated, Additional assist utilized for safety, Moderate cues Assistive Device: Bed rails Bed Mobility Exam: Sit to Supine Level of Richardson: Minimum assist (75% patient's effort) Physical/Nonphysical Assist: Verbal Cues, Nonverbal cues (demo/gestures), Additional assist utilized for safety, Moderate cues Assistive Device: Bed rails, Other (LE management) Transfers Transfer Exam: Sit to stand Level of Richardson: Minimum assist (75% patient's effort) Physical/Nonphysical Assist: Verbal Cues, Nonverbal cues (demo/gestures), Additional assist utilized for safety, Moderate cues Assistive Device: Hand held assist (LUE) Transfer Exam: Stand to Sit Level of Richardson: Minimum assist (75% patient's effort) Physical/Nonphysical Assist: Verbal Cues, Nonverbal cues (demo/gestures), Additional assist utilized for safety, Moderate cues Assistive Device: (LUE) Transfer Exam: Bed to Chair/Chair to Bed Level of Richardson: Minimum assist (75% patient's effort) Physical/Nonphysical Assist: Verbal Cues, Moderate cues, Nonverbal cues (demo/gestures), Additionalassist utilized for safety Type of Transfer: Sidesteps Assistive Device: Hand held assist (LUE) Toilet Transfer Level of Richardson: Minimum assist (75% patient's effort) Physical/Nonphysical Assist: [...] with min assist x 2 using LUE UPKEEP MECHANIC. Pt additionally completed functional bed> bed side [...] with min assist x 2 using LUE UPKEEP MECHANIC. Therapist provided min-mod verbal cues for sequencing, [...] reduction at OSH Ortho following, appreciate recs [facility] NWB RUE F/u x-rays on 08/28, operative [...] PA - 08/26/2025 9:00 AM EDT 08/26/25 Madyson Machado HPI Brigid Machado is a [...] Edited by: Jaida Shipman PA at 08/26/2025 1641 Relevant review of systems was obtained as [...] reduction at OSH Ortho following, appreciate recs [facility] F/[facility] on 08/28, operative plans pending Fall from standing, initial encounter Present on Admission: Yes Possible orthostatic fall Admit to T 6 [facility] 08/24 Dizziness Present on Admission: [...] x 5.7 x 11.2 cm solid/cystic areas, [place] 8 - 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 Thickened endometrium PMB (postmenopausal bleeding) Plan: - Ortho: non-op, ortho to repeat x-rays on 08/28 - Syncope: carotid duplex unremarkable, echo confirmed HFrEF <42% - Bowel regimen - PT/OT Barrier: Ortho xray on 08/28 Dispo: Subacute rehab Edited by: Jaida Shipman PA at 08/26/2025 1631 QUINTIN Rdeman * Care Plan - Estella Mueller RN [...] Trendelenburg. Evans Russo MD Orthopaedic Surgery PGY1 [facility] Personal Pager: [phone] Orthopaedic Trauma Service Pager: [phone] Orthopaedic Recon/Spine/Foot and Ankle Service Pager: [phone] Cosigned by Ricki Clark MD at 08/26/2025 [...] reduction at OSH Ortho following, appreciate recs [facility] NWB RUE, anticipate non-op * Assessment & [...] EDT TRAUMA SURGERY TERTIARY SURVEY 08/25/25 Madyson Carter SUSIE Brigid Machado is a 65 y/o female [...] PO diet, noN/V, abd pain. 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 Mobilizing as able. Pain well controlled. Denies [...] anesthesia Anxiety Arthritis Dental disease Depression Diabetes ([facility]) HL (hearing loss) Hyperlipidemia Hypertension [...] Admission: Yes Possible orthostatic fall Admit to [facility] 6 Tertiary 08/24 Dizziness Present on Admission: [...] no adenopathy or ascites - Initial consult [facility] 07/15/2023 - US 07/15/2023: Fibroids noted, complex Nabothian cysts, 1.1 cm endometrial stripe, left ovary 8.1 x 5.7 x 11.2 cm solid/cystic areas, [place] 8 - 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 Thickened endometrium PMB (postmenopausal bleeding) Plan: - Tertiary 08/25 complete - Ortho: non-op, ortho following for serial x-rays - Syncope: work up pending, ECHO, carotid Duplex - [facility] - Bowel regimen - PT/OT Dispo: Subacute rehab Edited by: Jaida Shipman PA at 08/25/2025 6606 QUINTIN Redman New diagnoses, need for imaging [...] Goal: Plan of Care Review Flowsheets (Taken 08/25/2025 0130) Progress: improving Plan of Care Reviewed With: [...] Progressing Intervention: Optimize Skin Protection Flowsheets (Taken 08/25/2025129) Activity Management: activity adjusted per tolerance previous patient education reinforced ambulated to bathroom Skin Protection: incontinence pads utilized Head of Bed (HOB) Positioning: HOB at 30 degrees * Hospital Course - CinthyamelizaRodney APRN - 08/24/2025 4:06 PM EDT Brigid [...] stay, and so will be discharged to [facility] in [place]. DVT prophylaxis: None on discharge Procedures: None [...] 8:30AM @ Orthopaedic Surgery & Sports Medicine; [facility], [address], [address] Floor, [facility], [address], [place] [address], # [phone]. SGT: [facility] as needed; [address], [place] [facility] First Floor, Wing [address] Room [address] [place] [address], #[phone]. Questions or Concerns and Appointments If there are questions or concerns after discharge from the hospital, please call [phone] and ask for Blue Surgery Nurse. Working hours are Saturday - Saturday 8:00 AM to 4:00 PM. After hours, weekends and holidays please call [phone] and ask for the resident contracting executive for Blue Surgery. For appointments please call [phone]. Medication requests should be made between the hours of 9:00 AM to 3:00 PM Saturday thru Saturday. Please note that based upon recent changes to [place] law related to prescribing opioid pain medications, our providers will not provide refills on controlled medications after your hospital discharge following a major surgery or trauma. [place], [place] 201 KAR9:260. * Progress Notes - Kandace Briseno Clyde - 08/24/2025 2:00 PM EDT Case Management Adult Initial Progress Note Madyson Machado 65 y.o. female CSN: [id number] Admission: 08/23/2025 9:41 PM Primary Problem: Fall from standing, initial encounter Manager Data Warehousing reviewed chart to complete this Initial Case Management Assessment. PCP: Brad Hassan MD Emergency Contact: Extended Emergency Contact Information Primary Emergency Contact: Karolyn Samano Mobile Relation: Sister Preferred language: Portuguese Turf Farm Worker needed? No Secondary Emergency Contact: ELISABETLATOSHA Mobile Relation: Daughter Turf Farm Worker needed? No Insurance: Primary Visit Coverage Payer Plan Sponsor Code Group Number Group Name HUMANA MEDICARE HUMANA MEDICARE Primary Visit Coverage Subscriber Subscriber ID Subscriber Name Subscriber SSN Subscriber Address [id number] Madyson Machado [id number] [address] [place] [address] Patient information: Primary Caregiver: Self Support System: Immediate family Daily Living Activities: Functional Status: Minimum assistance Living Arrangements: Alone Type of Residence: Private [address] [address] Current DME: Equipment Currently Used at Home: [...] Outpatient Dialysis Services: Living Will/Advance Directive/Power of Job Coaching /Guardian: Social Drivers of Health Food Insecurity: [...] Cage questionnaire guilty: 0 Cage questionnaire eye extension course counselor: 0 Cage Overall score: 0 Housing Stability: [...] appropriate. Pt lives at home alone in [place]. Pt sister provides transportation to f/u appointments. SW willcontinue to follow. Kandace Briseno * Progress Notes - Greta Doty - 08/24/2025 9:36 AM EDT Physical Therapy [...] session. Participants in Care Family/Caregiver Present: No Turf Farm Worker: Not Applicable Presentation Oxygen Therapy: None (Room air) Lines and Tubes: Intravenous access, Telemetry ([employer]) Pre-Session: Supine, Head of bed elevated, Bed [...] Level of Mobility: Ambulatory- household only Mobility Richardson: Independent gait without device History of Falls: [...] Mobility Exam: Supine to Sit Level of Richardson: Maximum assist (25% patient's effort) Physical/Nonphysical Assist: Verbal Cues, Nonverbal cues (demo/gestures), HOB elevated, Maximal cues, Additional assist utilized for safety Assistive Device: Other (L hand held assist) Bed Mobility Exam: Sit to Supine Level of Richardson: Maximum assist (25% patient's effort) Physical/Nonphysical Assist: Verbal Cues, Nonverbal cues (demo/gestures), Maximal cues, Additional assist utilized for safety Assistive Device: Other (L hand held assist) Transfers Transfer Exam: Sit to stand Level of Richardson: Moderate assist (50% patient's effort) Physical/Nonphysical Assist: Verbal Cues, Nonverbal cues (demo/gestures), Maximal cues, Additional assist utilized for safety Assistive Device: Hand held assist (L UE) Transfer Exam: Stand to Sit Level of Richardson: Maximum assist (25% patient's effort) Physical/Nonphysical Assist: [...] staff. Standardized Assessments Standardized Assessments Standardized Assessments: AMPA 6-Clicks Mobility Assessment AMPA 6-Clicks Mobility Assessment Difficulty patient has turning [...] climbing 3-5 steps with a railing?: Unable [facility] 6-Clicks Mobility Assessment Total : 10 Assessment [...] session. Participants in Care Family/Caregiver Present: No Turf Farm Worker: Not Applicable Presentation Oxygen Therapy: None (Room [...] Level of Mobility: Ambulatory- household only Mobility Richardson: Independent gait without device History of Falls: [...] Mobility Bed Mobility Exam: Scooting/Bridging Level of Richardson: Maximum assist (25% patient's effort) (seated scooting to EOB) Physical/Nonphysical Assist: Verbal Cues, Minimal cues Assistive Device: Other (drawsheet) Bed Mobility Exam: Supine to Sit Level of Richardson: Maximum assist (25% patient's effort) Physical/Nonphysical Assist: Verbal Cues, Nonverbal cues (demo/gestures), HOB elevated, Maximal cues, Additional assist utilized for safety Assistive Device: Other (L hand held assist) Bed Mobility Exam: Sit to Supine Level of Richardson: Maximum assist (25% patient's effort) Physical/Nonphysical Assist: Verbal Cues, Nonverbal cues (demo/gestures), Maximal cues, Additional assist utilized for safety Assistive Device: Other (L UPKEEP MECHANIC) Transfers Transfer Exam: Sit to stand Level of Richardson: Moderate assist (50% patient's effort) Physical/Nonphysical Assist: Verbal Cues, Nonverbal cues (demo/gestures), Maximal cues, Additional assist utilized for safety Assistive Device: Hand held assist (L UE) Transfer Exam: Stand to Sit Level of Richardson: Maximum assist (25% patient's effort) Physical/Nonphysical Assist: [...] with mod-max assist x 2 with LUE UPKEEP MECHANIC. Maximal verbal and tactile cues provided for [...] anxiety with mobility this date. Standardized Assessments [facility] 6-Click Daily Activities Help from Other: Don/Doff Regular Lower Body Clothings: A lot Help From Other: Bathing: A lot Help From Other: Toileting: A lot Help From Other: Don/Doff Upper Body Clothings: A lot Help From Other: Grooming: Little Help From Other: Eating Meals: Little [facility] 6 Click - Daily Activities Score: [...] * Discharge Instr - Activity - Michelle Pal RN - 08/24/2025 8:27 AM EDT Move [...] Goal (Individualized) Outcome: Ongoing, Progressing Flowsheets (Taken 08/24/2025729) Patient/Family-Specific Goals (Include Timeframe): pt will remain free from falls/injury today Individualized Care Needs: safety Anxieties, Fears or Concerns: n/a Problem: Adult Inpatient Plan of Care Goal: Optimal Comfort and Wellbeing Intervention: Provide Person-Centered Care Flowsheets (Taken 08/24/2025743) Trust Relationship/Rapport: care explained choices provided emotional support provided empathic listening provided questions answered questions encouraged reassurance provided thoughts/feelings acknowledged Problem: Fall Injury Risk Goal: Absence of Fall and Fall-Related Injury Intervention: Promote Injury-Free Environment Flowsheets (Taken 08/24/2025743) Safety Promotion/Fall Prevention: activity supervised assistive device/personal items within reach clutter-free environment maintained fall prevention program maintained mobility aid in reach nonskid shoes/slippers when out of bed safety round/check completed room organization consistent Problem: Confusion Acute Goal: Optimal Cognitive Function Intervention: Minimize Contributing Factors Flowsheets (Taken 08/24/2025743) Sensory Stimulation Regulation: care clustered quiet environment [...] past month or so. She used toattend worship weekly but no longer has the energy. 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 [...] per primary Anticipate non-operative management Admitted to T for PT/OT and pain control Althea Devine MD Orthopaedic Surgery PGY-2 [facility] Orthopaedic Trauma Service Pager: [phone] Orthopaedic Recon/Spine/Foot and Ankle Service Pager: [phone] [1] Past Medical History: Diagnosis Date Adverse [...] reduction at OSH Ortho following, appreciate recs [facility] * Assessment & Plan Note [...] by: Kwesi Yang MD Time of Consultation: 001 Time of Trauma Evaluation: 0110 Arrival Date: 08/23/2025 Arrival Time: 2140 Referring Hospital: [facility] Injury Date: 08/22/2025 Injury Time: 2238 Transport Mode: Mode of Arrival: Ambulance Mechanism [...] inthe morning. Patient was subsequently brought to [facility] where she was found to have a right humeral neck fracture which was reportedly reduced at the OSH. She was then transferredto for trauma evaluation. Patient has had several episodes of dizziness over the course of the past few months with recent echocardiogram and carotid duplex is performed at [facility] earlier this month for syncope workup. [...] oz), last menstrual period 07/15/2013, SpO2 94%. Hiram [place] Coma Scale Best Eye Response: Spontaneous Best Verbal Response: Confused Best Motor Response: Follows commands [place] Coma Scale Score: 14 Intubated No Recent [...] Ortho following, appreciate recs [facility] NWB RUE Fall from standing, initial encounter [...] recent TTE and Carotid Duplex performed at [facility]. Non-Hospital Problems Pelvic mass Overview Addendum [...] x 5.7 x 11.2 cm solid/cystic areas, [place] 8 - MIKE/BSO 08/08/2023: Mitotically active cellular [...] 08/24/2025 0156 Date/Time Order Dose Route Action 08/23/2025 2236 EDT HYDROmorphone (Dilaudid) injection 0.5 mg 0.5 mg Intravenous Given 08/23/2025 223 EDT ondansetron (Zofran) injection 4 mg 4 mg Intravenous Given 08/23/2025 2300 EDT HYDROmorphone (Dilaudid) 1 MG/ML injection - Pyxis Override Pull -- Override Pull 08/23/2025 2300 EDT ondansetron (Zofran) 4 MG/2ML injection - Pyxis Override Pull -- Override Pull 08/24/2025 0038 EDT acetaminophen (Tylenol) tablet 1,000 mg 1,000 [...] and Output - Strict Per unit protocol Acknowledged JEMIMA GARCIA 08/24/25155 Neuro checks Until discontinued Comments: Every [...] Mobility Orders Until discontinued Acknowledged JEMIMA GARCIA 08/24/25135 CT Shoulder Right wo IV Contrast Once In process ALTHEA DEVINE 08/24/2528 XR Shoulder Right 2+ Views Once Final result ALTHEA DEVINE 08/24/259 ECG Adult Once Preliminary result ARMINDA ROSE 10/21/25 0010 Consult to Trauma Surgery Once Specialty: Trauma Surgery Provider: (Not yet assigned) Completed ARMINDA ROSE 08/24/25 001 ED to floor bed request Once Completed ARMINDA ROSE 08/23/25 2346 Consult to Orthopaedic Surgery Once Specialty: Orthopaedic Surgery Provider: (Not yet assigned) Acknowledged ARMINDA ROSE 08/23/25 2227 XR Shoulder Right 2+ Views Once Final result ARMINDA ROSE 08/23/25 222 XR Humerus Right 2+ Views Once Final result ARMINDA ROSE 08/23/252226 XR Elbows Right 3+ View Once Final result ARMINDA ROSE 08/23/252226 XR Clavicle Right Once Final result ARMINDA [...] - morphine - fentanyl - versed [SL] SatAug 24, 2025 0005 XR Humerus Right 2+ [...] None Disposition Admit Admitting/Attending Physician: NIKOLE MANN [2009] Provider Care Team: SGT FLOOR 6 [602] [...] documented in this encounter Plan of Treatment Upcoming Encounters Date Type Department Care Team (Late st Contact Info) Description 10/06/2025 9:10 AM EST Office Visit [facility] Orthopaedic Surgery & Sports Medicine [address] [place] [address] Ricki Clark MD [address] [place] [address] Scheduled Referrals Name Type Priority Associated Diagnoses [...] POCT glucose meter (09/01/2025 12:05 PM EDT) POCT Glucose 224(H) 74 - 99 mg/dL [...] for testing. Comment 09/01/2025 12:06 PM EDT [facility] Probe Operator ID Nathalia Senior 12:06 PM EDT [email or web address] [facility] Device ID [id number] 09/01/2025 12:06 PM EDT [facility] Specimen Type POC Capillary 09/01/2025 12:06 PM EDT [facility] Blood Capillary blood specimen / Unknown 09/01/2025 12:05 PM EDT 09/01/2025 12:06 PM EDT Juan Otero MD LAB POINT OF CARE TEST DOCKED DEVICE UNSOLICITED RESULTS Final Result [facility] [address] [place] [id number] * (ABNORMAL) POCT glucose meter (09/01/2025 8:21 AM EDT) POCT Glucose 159(H) 74 - 99 mg/dL 09/01/2025 8:23 AM EDT [facility] Comment:Accuracy of a [...] for testing. Comment 09/01/2025 8:23 AM EDT [facility] Probe Operator ID Edmund Carr 09/01/2025 8:23 AM EDT [facility] Device ID [id number] 09/01/2025 8:23 AM EDT [facility] Specimen Type POC Capillary 09/01/2025 8:23 AM EDT [facility] Blood Capillary blood specimen / Unknown 09/01/2025 8:21 AM EDT 09/01/2025 8:23 AM EDT us Juan Otero MD LAB POINT OF CARE TEST DOCKED DEVICE UNSOLICITED RESULTS Final Result Performing Organization Address City/[facility] Co de Phone Number [facility] [address] [place] [address] * (ABNORMAL) POCT glucose meter (08/31/2025 8:30 PM EDT) [facility] POCT Glucose 144(H) 74 - 99 [...] Comment 08/31/2025 8:32 PM EDT [facility] Probe Operator ID Michelle Rogers 08/31/2025 8:32 PM EDT [facility] Device ID [id number] 08/31/2025 8:32 PM EDT [facility] Specimen Type POC Capillary 08/31/2025 8:32 PM EDT [facility] Blood Capillary blood specimen / Unknown 08/31/2025 8:30 PM EDT 08/31/2025 8:32 PM EDT us Izzy Griffith MD LAB POINT OF CARE TEST DOCKED DEVICE UNSOLICITED RESULTS Final Result [facility] [address] [place] [address] * (ABNORMAL) POCT glucose meter (08/31/2025 5:36 PM EDT) [facility] POCT Glucose 266(H) 74 - 99 mg/dL [...] for testing. Comment 08/31/2025 5:38 PM EDT [facility] Probe Operator ID Lake Burns 08/31/2025 5:38 PM EDT [facility] Device ID [id number] 08/31/2025 5:38 PM EDT [facility] Specimen Type POC Capillary 08/31/2025 5:38 PM EDT [facility] Blood Capillary blood specimen / Unknown 08/31/2025 5:36 PM EDT 08/31/2025 5:38 PM EDT Izzy Griffith MD LAB POINT OF CARE TEST DOCKED DEVICE UNSOLICITED RESULTS Final Result [facility] [address] [place] [address] * (ABNORMAL) POCT glucose meter (08/31/2025 12:21 PM EDT) [facility] POCT Glucose 142(H) 74 - 99 [...] 08/31/2025 12:23 PM EDT [facility] Probe Operator ID [place] 08/31/2025 12:23 PM EDT [facility] Device ID [id number] 08/31/2025 12:23 PM EDT [facility] Specimen Type POC Capillary 08/31/2025 12:23 PM EDT [facility] Blood Capillary blood specimen / Unknown 08/31/2025 12:21 PM EDT 08/31/2025 12:23 PM EDT us Izzy Griffith MD LAB POINT OF CARE TEST DOCKED DEVICE UNSOLICITED RESULTS Final Result Performing Organization Address [facility] de Phone Number [facility] [address] [place] [address] * Troponin T, High Sensitivity, 2 Hour, Plasma (08/31/2025 11:58 AM EDT) Troponin T, High Sensitivity, 2 Hour 10 <14 ng/L 08/31/2025 12:32 PM EDT [facility] Blood Venous blood specimen / Unknown Venipuncture / Unknown 08/31/2025 11:58 AM EDT 08/31/2025 12:04 PM EDT us Rodney Dwyer GENERATOR REBUILDER LAB BLOOD ORDERABLES Final Result Performing Organization Address [facility] [place] [address] * XR Chest 1 View (08/31/2025 10:22 [...] on 08/31/2025 11:12 AM us Rodney Dwyer GENERATOR REBUILDER IMG XR PROCEDURES Final Re sult * ECG Adult (08/31/2025 9:44 AM EDT) EKG DIAGNOSIS CLASS Abnormal MUSE ECG Ventricular Rate 94 BPM MUSE ECG Atrial Rate 94 BPM MUSE ECG GA Interval 136 ms MUSE ECG QRSD Interval 84 ms MUSE ECG QT Interval 380 ms MUSE ECG QTC Interval 475 ms MUSE ECG P Union 10 degrees MUSE ECG R Union 13 degrees MUSE ECG T Wave Union 144 degrees MUSE ECG Diagnosis Poor data [...] EDT 08/31/2025 2:11 PM EDT Rodney Dwyer APRN ECG ORDERABLES Final Resu lt MUSE ECG * Troponin T, High Sensitivity, 0 Hour Plasma, Reflex to 2 Hour (08/31/2025 9:43 AM EDT) Troponin T, High Sensitivity, 0 Hour 12 <14 ng/L 08/31/2025 11:45 AM EDT [facility] Blood Venous blood specimen / Unknown Venipuncture / Unknown 08/31/2025 9:43 AM EDT 08/31/2025 11:04 AM EDT Rodney Dwyer APRN LAB BLOOD ORDERABLES Final Result [facility] [address] [place] [address] * (ABNORMAL) Comprehensive metabolic panel (08/31/2025 9:43 AM EDT) Glucose, Plasma 137(H) 74 - 99 mg/dL 08/31/2025 11:45 AM EDT [facility] BUN, Plasma 9 8 - 23 mg/dL 08/31/2025 11:45 AM EDT [facility] Creatinine, Plasma 0.38(L) 0.60 - 1.10 mg/dL 08/31/2025 11:45 AM EDT [facility] BUN/Creatinine Ratio 24 08/31/2025 11:45 AM EDT [facility] Sodium, Plasma 137 136 - 145 mmol/L 08/31/2025 11:45 AM EDT [facility] Potassium, Plasma 3.5(L) 3.6 - 4.9 mmol/L 08/31/2025 11:45 AM EDT [facility] Chloride, Plasma 100 97 - 107 mmol/L 08/31/2025 11:45 AM EDT [facility] CO2, Plasma 20(L) 22 - 29 mmol/L 08/31/2025 11:45 AM EDT [facility] Anion Gap 17(H) 6 - 16 mmol/L 08/31/2025 11:45 AM EDT [facility] Total Calcium, Plasma 8.9 8.9 - 10.2 mg/dL 08/31/2025 11:45 AM EDT [facility] Total Protein 6.7 6.3 - 7.9 g/dL 08/31/2025 11:45 AM EDT [facility] Albumin, Plasma 3.4(L) 3.5 - 5.2 g/dL 08/31/2025 11:45 AM EDT [facility] AST, Plasma 18 10 - 35 U/L 08/31/2025 11:45 AM EDT [facility] Comment:Hemolyzed, result ma y be falsely increased. ALT, Plasma 20 10 - 35 U/L 08/31/2025 11:45 AM EDT [facility] Alkaline Phosphatase, Plasma 60 46 - 142 U/L 08/31/2025 11:45 AM EDT [facility] Total Bilirubin, Plasma 0.7 0.2 - 1.1 mg/dL 08/31/2025 11:45 AM EDT [facility] eGFRcr 110.7 mL/min/1.7 3m*2 08/31/2025 11:45 AM EDT [facility] Comment:Reported eGFRcr in m L/min/1.73m2 is based the CKD-EPI 2020 equation that does not use a race coefficient. Blood Venous blood specimen / Unknown Venipuncture / Unknown 08/31/2025 9:43 AM EDT 08/31/2025 11:04 AM EDT us Rodney Dwyer APRN LAB BLOOD ORDERABLES Final Result [facility] [address] [place] [address] * (ABNORMAL) CBC and differential (08/31/2025 9:43 AM EDT) WBC Count 8.37 3.70 - 10.30 10*3/uL LAB HEMATOLOGY METHOD 08/31/2025 11:27 AM EDT [facility] RBC Count 3.52(L) 3.90 - 5.20 10*6/uL LAB HEMATOLOGY METHOD 08/31/2025 11:27 AM EDT [facility] HGB 10.9(L) 11.2 - 15.7 g/dL LAB HEMATOLOGY METHOD 08/31/2025 11:27 AM EDT [facility] HCT 33.0(L) 34.0 - 45.0 % LAB HEMATOLOGY METHOD 08/31/2025 11:27 AM EDT [facility] Platelet Count 393(H) 155 - 369 10*3/uL LAB HEMATOLOGY METHOD 08/31/2025 11:27 AM EDT [facility] MCV 94 79 - 98 fL LAB HEMATOLOGY METHOD 08/31/2025 11:27 AM EDT [facility] MCH 31.0 26.0 - 32.0 pg LAB HEMATOLOGY METHOD 08/31/2025 11:27 AM EDT [facility] MCHC 33.0 30.7 - 35.5 g/dL LAB HEMATOLOGY METHOD 08/31/2025 11:27 AM EDT [facility] RDW 12.4 11.5 - 14.5 % LAB HEMATOLOGY METHOD 08/31/2025 11:27 AM EDT [facility] MPV 9.1 8.8 - 12.5 fL LAB HEMATOLOGY METHOD 08/31/2025 11:27 AM EDT [facility] nRBC 0.0 <=0.0 per 100 WBCs LAB HEMATOLOGY METHOD 08/31/2025 11:27 AM EDT [facility] Differential Type Automated LAB HEMATOLOGY METHOD 08/31/2025 11:27 AM EDT [facility] Neutrophils % 68 % LAB HEMATOLOGY METHOD 08/31/2025 11:27 AM EDT [facility] Lymphocytes % 19 % LAB HEMATOLOGY METHOD 08/31/2025 11:27 AM EDT [facility] Monocytes % 11 % LAB HEMATOLOGY METHOD 08/31/2025 11:27 AM EDT [facility] Eosinophils % 1 % LAB HEMATOLOGY METHOD 08/31/2025 11:27 AM EDT [facility] Basophils % 0 % LAB HEMATOLOGY METHOD 08/31/2025 11:27 AM EDT [facility] Immature Granulocytes % 1 % LAB HEMATOLOGY METHOD 08/31/2025 11:27 AM EDT [facility] Neutrophils Absolute 5.77 1.60 - 6.10 10*3/uL LAB HEMATOLOGY METHOD 08/31/2025 11:27 AM EDT [facility] Lymphocytes Absolute 1.56 1.20 - 3.90 10*3/uL LAB HEMATOLOGY METHOD 08/31/2025 11:27 AM EDT [facility] Monocytes Absolute 0.89 0.30 - 0.90 10*3/uL LAB HEMATOLOGY METHOD 08/31/2025 11:27 AM EDT [facility] Eosinophils Absolute 0.08 0.00 - 0.50 10*3/uL LAB HEMATOLOGY METHOD 08/31/2025 11:27 AM EDT [facility] Basophils Absolute 0.02 0.00 - 0.10 10*3/uL LAB HEMATOLOGY METHOD 08/31/2025 11:27 AM EDT [facility] Immature Granulocytes Absolute 0.05 0.00 - 0.06 10*3/uL LAB HEMATOLOGY METHOD 08/31/2025 11:27 AM EDT [facility] Blood Venous blood specimen / Unknown Venipuncture / Unknown 08/31/2025 9:43 AM EDT 08/31/2025 11:17 AM EDT Narrative [facility] - 08/31/2025 11:27 AM EDT Therapeutic decision making should be based on absolute values, rather than percentages. Rodney Dwyer APRN LAB BLOOD ORDERABLES Final Result [facility] [address] [place] [address] * (ABNORMAL) POCT glucose meter (08/31/2025 8:54 AM EDT) [facility] POCT Glucose 154(H) 74 - 99 mg/dL 08/31/2025 8:56 AM EDT [facility] Comment:Accuracy of a glucos e result [...] for testing. Comment 08/31/2025 8:56 AM EDT [facility] Probe Operator ID Lake Burns 08/31/2025 8:56 AM EDT [facility] Device ID [id number] 08/31/2025 8:56 AM EDT [facility] Specimen Type POC Capillary 08/31/2025 8:56 AM EDT [facility] Blood Capillary blood specimen / Unknown 08/31/2025 8:54 AM EDT 08/31/2025 8:56 AM EDT us Izzy Griffith MD LAB POINT OF CARE TEST DOCKED DEVICE UNSOLICITED RESULTS Final Result Performing Organization Address [facility] Co de Phone Number [facility] [address] [place] [address] * (ABNORMAL) POCT glucose meter (08/30/2025 8:16 PM EDT) [facility] POCT Glucose 136(H) 74 - 99 mg/dL [...] Comment 08/30/2025 8:18 PM EDT [facility] Probe Operator ID Yusef Branch 08/30/2025 8:18 PM EDT [facility] Device ID [id number] 08/30/2025 8:18 PM EDT [facility] Specimen Type POC Capillary 08/30/2025 8:18 PM EDT [facility] Blood Capillary blood specimen / Unknown 08/30/2025 8:16 PM EDT 08/30/2025 8:18 PM EDT us Izzy Griffith MD LAB POINT OF CARE TEST DOCKED DEVICE UNSOLICITED RESULTS Final Result Performing Organization Address City/[facility]/ZIP Co de Phone Number [facility] [address] [place] [address] * (ABNORMAL) POCT glucose meter (08/30/2025 4:49 PM EDT) [facility] POCT Glucose 196(H) 74 - 99 mg/dL [...] 08/30/2025 4:51 PM EDT [facility] Probe Operator ID Parrish Nathalia 4:51 PM EDT [facility] Device ID [id number] 08/30/2025 4:51 PM EDT [facility] Specimen Type POC Capillary 08/30/2025 4:51 PM EDT [facility] Blood Capillary blood specimen / Unknown 08/30/2025 4:49 PM EDT 08/30/2025 4:51 PM EDT Izzy Griffith MD LAB POINT OF CARE TEST DOCKED DEVICE UNSOLICITED RESULTS Final Result [facility] [address] [place] [address] * (ABNORMAL) POCT glucose meter (08/30/2025 12:24 PM EDT) [facility] POCT Glucose 177(H) 74 - 99 [...] 08/30/2025 12:25 PM EDT [facility] Probe Operator ID Edmund Carr 08/30/2025 12:25 PM EDT [facility] Device ID [id number] 08/30/2025 12:25 PM EDT [facility] Specimen Type POC Capillary 08/30/2025 12:25 PM EDT [facility] Blood Capillary blood specimen / Unknown 08/30/2025 12:24 PM EDT 08/30/2025 12:25 PM EDT Izzy Griffith MD LAB POINT OF CARE TEST DOCKED DEVICE UNSOLICITED RESULTS Final Result Performing Organization Address City/[facility] Co de Phone Number [facility] [address] [place] [address] * (ABNORMAL) POCT glucose meter (08/30/2025 7:38 AM EDT) POCT Glucose 159(H) 74 - 99 [...] for testing. Comment 08/30/2025 7:39 AM EDT [facility] Probe Operator ID Nathalia Senior 7:39 AM EDT [facility] Device ID [id number] 08/30/2025 7:39 AM EDT [facility] Specimen Type POC Capillary 08/30/2025 7:39 AM EDT [facility] Blood Capillary blood specimen / Unknown 08/30/2025 7:38 AM EDT 08/30/2025 7:39 AM EDT us Ester Vivas MD LAB POINT OF CARE TEST DOCKED DEVICE UNSOLICITED RESULTS Final Result Performing Organization Address City/[facility] Co de Phone Number [facility] [address] [place] [address] * (ABNORMAL) POCT glucose meter (08/29/2025 7:42 PM EDT) POCT Glucose 158(H) 74 - 99 mg/dL [...] for testing. Comment 08/29/2025 7:44 PM EDT [facility] Probe Operator ID Yusef Branch 08/29/2025 7:44 PM EDT [facility] Device ID [id number] 08/29/2025 7:44 PM EDT [facility] Specimen Type POC Capillary 08/29/2025 7:44 PM EDT [facility] Blood Capillary blood specimen / Unknown 08/29/2025 7:42 PM EDT 08/29/2025 7:44 PM EDT Ester Vivas MD LAB POINT OF CARE TEST DOCKED DEVICE UNSOLICITED RESULTS Final Result Performing Organization Address City/State/[facility] Co de Phone Number [facility] [address] [place] [address] * (ABNORMAL) POCT glucose meter (08/29/2025 5:26 PM EDT) [facility] POCT Glucose 180(H) 74 - 99 [...] for testing. Comment 08/29/2025 5:28 PM EDT [facility] Probe Operator ID Edmund Carr 08/29/2025 5:28 PM EDT [facility] Device ID [id number] 08/29/2025 5:28 PM EDT [facility] Specimen Type POC Capillary 08/29/2025 5:28 PM EDT [facility] Blood Capillary blood specimen / Unknown 08/29/2025 5:26 PM EDT 08/29/2025 5:28 PM EDT Ester Vivas MD LAB POINT OF CARE TEST DOCKED DEVICE UNSOLICITED RESULTS Final Result Performing Organization Address [facility] Co de Phone Number [facility] [address] [place] [address] * (ABNORMAL) POCT glucose meter (08/29/2025 12:38 PM EDT) POCT Glucose 168(H) 74 - 99 mg/dL [...] for testing. Comment 08/29/2025 12:40 PM EDT [facility] Probe Operator ID Edmund Carr 08/29/2025 12:40 PM EDT [facility] Device ID [id number] 08/29/2025 12:40 PM EDT [facility] Specimen Type POC Capillary 08/29/2025 12:40 PM EDT [facility] Blood Capillary blood specimen / Unknown 08/29/2025 12:38 PM EDT 08/29/2025 12:40 PM EDT Ester Vivas MD LAB POINT OF CARE TEST DOCKED DEVICE UNSOLICITED RESULTS Final Result Performing Organization Address City/[facility] Co de Phone Number [facility] [address] [place] [address] * (ABNORMAL) POCT glucose meter (08/29/2025 8:49 AM EDT) POCT Glucose 140(H) 74 - 99 mg/dL [...] for testing. Comment 08/29/2025 8:50 AM EDT [facility] Probe Operator ID Edmund Carr 08/29/2025 8:50 AM EDT [facility] Device ID [id number] 08/29/2025 8:50 AM EDT [facility] Specimen Type POC Capillary 08/29/2025 8:50 AM EDT [facility] Blood Capillary blood specimen / Unknown 08/29/2025 8:49 AM EDT 08/29/2025 8:50 AM EDT Ester Vivas MD LAB POINT OF CARE TEST DOCKED DEVICE UNSOLICITED RESULTS Final Result Performing Organization Address [facility] de Phone Number [facility] [address] [place] [address] * (ABNORMAL) POCT glucose meter (08/28/2025 8:43 PM EDT) [facility] POCT Glucose 133(H) 74 - 99 mg/dL 08/28/2025 8:48 PM EDT [facility] Comment:Accuracy of [...] Comment 08/28/2025 8:48 PM EDT [facility] Probe Operator ID Talon Mcmullen 08/28/2025 8:48 PM EDT [facility] Device ID [id number] 08/28/2025 8:48 PM EDT [facility] Specimen Type POC Capillary 08/28/2025 8:48 PM EDT [facility] Blood Capillary blood specimen / Unknown 08/28/2025 8:43 PM EDT 08/28/2025 8:48 PM EDT Ester Vivas MD LAB POINT OF CARE TEST DOCKED DEVICE UNSOLICITED RESULTS Final Result Performing Organization Address City/[facility] Co de Phone Number [facility] [address] [place] [address] * (ABNORMAL) POCT glucose meter (08/28/2025 5:15 PM EDT) [facility] POCT Glucose 166(H) 74 - 99 mg/dL [...] for testing. Comment 08/28/2025 5:17 PM EDT [facility] Probe Operator ID Vivian Keller 08/28/2025 5:17 PM EDT [facility] Device ID [id number] 08/28/2025 5:17 PM EDT [facility] Specimen Type POC Capillary 08/28/2025 5:17 PM EDT [facility] Blood Capillary blood specimen / Unknown 08/28/2025 5:15 PM EDT 08/28/2025 5:17 PM EDT Ester Vivas MD LAB POINT OF CARE TEST DOCKED DEVICE UNSOLICITED RESULTS Final Result Performing Organization Address City/State/[facility] Co de Phone Number [facility] [address] [place] [id number] * (ABNORMAL) POCT glucose meter (08/28/2025 1:05 PM EDT) [facility] POCT Glucose 207(H) 74 - 99 [...] 08/28/2025 1:06 PM EDT [facility] Probe Operator ID Kathy Taylor 1:06 PM EDT [facility] Device ID [id number] 08/28/2025 1:06 PM EDT [facility] Specimen Type POC Capillary 08/28/2025 1:06 PM EDT [facility] Blood Capillary blood specimen / Unknown 08/28/2025 1:05 PM EDT 08/28/2025 1:06 PM EDT Ester Vivas MD LAB POINT OF CARE TEST DOCKED DEVICE UNSOLICITED RESULTS Final Result Performing Organization Address City/[facility]/ZIP Co de Phone Number [facility] [address] [place] [address] * (ABNORMAL) POCT glucose meter (08/28/2025 9:18 [...] Comment 08/28/2025 9:20 AM EDT [facility] Probe Operator ID Kathy Taylor 9:20 AM EDT [facility] Device ID [id number] 08/28/2025 9:20 AM EDT [facility] Specimen Type POC Capillary 08/28/2025 9:20 AM EDT [facility] Blood Capillary blood specimen / Unknown 08/28/2025 9:18 AM EDT 08/28/2025 9:20 AM EDT Ester Vivas MD LAB POINT OF CARE TEST DOCKED DEVICE UNSOLICITED RESULTS Final Result Performing Organization Address City/[facility]/ZIP Co de Phone Number [facility] [address] [place] [address] * (ABNORMAL) POCT glucose meter (08/28/2025 6:26 [...] Comment 08/28/2025 6:28 AM EDT [facility] Probe Operator ID Uri Mustafa 6:28 AM EDT [facility] Device ID [id number] 08/28/2025 6:28 AM EDT [facility] Specimen Type POC Capillary 08/28/2025 6:28 AM EDT [facility] Blood Capillary blood specimen / Unknown 08/28/2025 6:26 AM EDT 08/28/2025 6:28 AM EDT us Juan Otero MD LAB POINT OF CARE TEST DOCKED DEVICE UNSOLICITED RESULTS Final Result Performing Organization Address City/State/[facility] de Phone Number [facility] [address] [place] [address] * (ABNORMAL) POCT glucose meter (08/27/2025 9:06 [...] Comment 08/27/2025 9:09 PM EDT [facility] Probe Operator ID Uri Mustafa 9:09 PM EDT [facility] Device ID [id number] 08/27/2025 9:09 PM EDT [facility] Specimen Type POC Capillary 08/27/2025 9:09 PM EDT [facility] Blood Capillary blood specimen / Unknown 08/27/2025 9:06 PM EDT 08/27/2025 9:09 PM EDT us Juan Otero MD LAB POINT OF CARE TEST DOCKED DEVICE UNSOLICITED RESULTS Final Result [facility] [address] [place] [address] * (ABNORMAL) POCT glucose meter (08/27/2025 5:11 PM EDT) POCT Glucose 126(H) 74 - 99 mg/dL 08/27/2025 5:13 PM EDT [facility] Comment:Accuracy of a [...] for testing. Comment 08/27/2025 5:13 PM EDT [facility] Probe Operator ID Vivian Keller 08/27/2025 5:13 PM EDT [facility] Device ID [id number] 08/27/2025 5:13 PM EDT [facility] Specimen Type POC Capillary 08/27/2025 5:13 PM EDT [facility] Blood Capillary blood specimen / Unknown 08/27/2025 5:11 PM EDT 08/27/2025 5:13 PM EDT Juan Otero MD LAB POINT OF CARE TEST DOCKED DEVICE UNSOLICITED RESULTS Final Result [facility] [address] [place] [address] * (ABNORMAL) POCT glucose meter (08/27/2025 12:25 PM EDT) Pathologist [facility] POCT Glucose 222(H) 74 - 99 mg/dL [...] 08/27/2025 12:26 PM EDT [facility] Probe Operator ID Vivian Keller 08/27/2025 12:26 PM EDT [facility] Device ID [id number] 08/27/2025 12:26 PM EDT [facility] Specimen Type POC Capillary 08/27/2025 12:26 PM EDT [facility] Blood Capillary blood specimen / Unknown 08/27/2025 12:25 PM EDT 08/27/2025 12:26 PM EDT us Juan Otero MD LAB POINT OF CARE TEST DOCKED DEVICE UNSOLICITED RESULTS Final Result Performing Organization Address City/[facility]/ZIP Co de Phone Number [facility] [address] [place] [address] * (ABNORMAL) POCT glucose meter (08/27/2025 8:39 AM EDT) POCT Glucose 154(H) 74 - 99 mg/dL 08/27/2025 8:50 AM EDT [facility] Comment:Accuracy [...] Comment 08/27/2025 8:50 AM EDT [facility] Probe Operator ID Erma Montero 025 8:50 AM EDT [facility] Device ID [id number] 08/27/2025 8:50 AM EDT [facility] Specimen Type POC Capillary 08/27/2025 8:50 AM EDT [facility] Blood Capillary blood specimen / Unknown 08/27/2025 8:39 AM EDT 08/27/2025 8:50 AM EDT us Juan Otero MD LAB POINT OF CARE TEST DOCKED DEVICE UNSOLICITED RESULTS Final Result Performing Organization Address City/[facility]/ZIP Co de Phone Number [facility] [address] [place] [address] * XR Shoulder Right 1 View (08/27/2025 [...] - 99 mg/dL 08/26/2025 7:43 PM EDT [facility] Comment:Accuracy of [...] 08/26/2025 7:43 PM EDT [facility] Probe Operator ID Tonya Lane 08/26/20 7:43 PM EDT [facility] Device ID [id number] 08/26/2025 7:43 PM EDT [facility] Specimen Type POC Capillary 08/26/2025 7:43 PM EDT [facility] Blood Capillary blood specimen / Unknown 08/26/2025 7:42 PM EDT 08/26/2025 7:43 PM EDT Juan Otero MD LAB POINT OF CARE TEST DOCKED DEVICE UNSOLICITED RESULTS Final Result Performing Organization Address City/State/[facility] Co de Phone Number [facility] [address] [place] [address] * (ABNORMAL) POCT glucose meter (08/26/2025 5:04 PM EDT) [facility] POCT Glucose 138(H) 74 - 99 [...] 08/26/2025 5:07 PM EDT [facility] Probe Operator ID Dory Albert 5:07 PM EDT [facility] Device ID [id number] 08/26/2025 5:07 PM EDT [facility] Specimen Type POC Capillary 08/26/2025 5:07 PM EDT [facility] Blood Capillary blood specimen / Unknown 08/26/2025 5:04 PM EDT 08/26/2025 5:07 PM EDT us Juan Otero MD LAB POINT OF CARE TEST DOCKED DEVICE UNSOLICITED RESULTS Final Result [facility] [address] [place] [address] * (ABNORMAL) Urinalysis with reflex microscopic (Culture NOT Included) (08/26/2025 3:24 PM EDT) Color, Urine Yellow LAB URINALYSIS - AUTOMATED METHOD 08/26/2025 3:54 PM EDT [facility] Clarity, Urine Clear LAB URINALYSIS - AUTOMATED METHOD 08/26/2025 3:54 PM EDT [facility] Spec [place], Urine >1.030(H) 1.005 - 1.030 LAB URINALYSIS - AUTOMATED METHOD 08/26/2025 3:54 PM EDT [facility] pH, Urine 6.5 5.0 - 8.0 LAB URINALYSIS - AUTOMATED METHOD 08/26/2025 3:54 PM EDT [facility] Protein, Urine 30(A) Negative mg/dL LAB URINALYSIS - AUTOMATED METHOD 08/26/2025 3:54 PM EDT [facility] Glucose, Urine >=1000(A) Negative mg/dL LAB URINALYSIS - AUTOMATED METHOD 08/26/2025 3:54 PM EDT [facility] Ketones, Urine 40(A) Negative mg/dL LAB URINALYSIS - AUTOMATED METHOD 08/26/2025 3:54 PM EDT [facility] Blood, Urine Negative Negative LAB URINALYSIS - AUTOMATED METHOD 08/26/2025 3:54 PM EDT [facility] Bilirubin, Urine Negative Negative LAB URINALYSIS - AUTOMATED METHOD 08/26/2025 3:54 PM EDT [facility] Urobilinogen, Urine 0.2 0.2 to 1.0 mg/dL LAB URINALYSIS - AUTOMATED METHOD 08/26/2025 3:54 PM EDT [facility] Leukocytes, Urine Negative Negative LAB URINALYSIS - AUTOMATED METHOD 08/26/2025 3:54 PM EDT [facility] Nitrite, Urine Negative Negative LAB URINALYSIS - AUTOMATED METHOD 08/26/2025 3:54 PM EDT [facility] Urine Urine specimen obtained by clean catch procedure / Unknown Non-blood Collection / Unknown 08/26/2025 3:24 PM EDT 08/26/2025 3:44 PM EDT us Jaida Shipman PA LAB URINE ORDERABLES Ivone l Result [facility] [address] [place] [address] * ECHO, ADULT TRANSTHORACIC COMPLETE W/ CONTRAST [...] is no recent study available for direct [id number] comparison. Left Ventricle Based on the 2D [...] is no recent study available for direct [id number] comparison. us Nikole Mann MD CV ECHO PROCEDURES Final Result * (ABNORMAL) POCT glucose meter (08/26/2025 12:40 PM EDT) [facility] POCT Glucose 221(H) 74 - 99 mg/dL 08/26/2025 12:42 PM EDT [email or web address] Comment:Accuracy of a glucos e result [...] for testing. Comment 08/26/2025 12:42 PM EDT [facility] Probe Operator ID Tiffanie Suarez 025 12:42 PM EDT [facility] LAB Device ID [id number] 08/26/2025 12:42 PM EDT [facility] Specimen Type POC Capillary 08/26/2025 12:42 PM EDT [facility] Blood Capillary blood specimen / Unknown 08/26/2025 12:40 PM EDT 08/26/2025 12:42 PM EDT us Juan Otero MD LAB POINT OF CARE TEST DOCKED DEVICE UNSOLICITED RESULTS Final Result Performing Organization Address City/[facility] Co de Phone Number [facility] [address] [place] [address] * (ABNORMAL) POCT glucose meter (08/26/2025 8:15 AM EDT) POCT Glucose 167(H) 74 - 99 mg/dL [...] Comment 08/26/2025 8:17 AM EDT [facility] Probe Operator ID Tiffanie Suarez 025 8:17 AM EDT [facility] Device ID [id number] 08/26/2025 8:17 AM EDT [facility] Specimen Type POC Capillary 08/26/2025 8:17 AM EDT [facility] Blood Capillary blood specimen / Unknown 08/26/2025 8:15 AM EDT 08/26/2025 8:17 AM EDT us Juan Otero MD LAB POINT OF CARE TEST DOCKED DEVICE UNSOLICITED RESULTS Final Result Performing Organization Address City/[facility] Co de Phone Number [facility] [address] [place] [address] * (ABNORMAL) POCT glucose meter (08/26/2025 4:27 AM EDT) [facility] POCT Glucose 147(H) 74 - 99 mg/dL 08/26/2025 4:28 AM EDT [facility] Comment:Accuracy of a [...] for testing. Comment 08/26/2025 4:28 AM EDT [facility] Probe Operator ID Tonya Lane 08/26/20 4:28 AM EDT [facility] Device ID [id number] 08/26/2025 4:28 AM EDT [facility] Specimen Type POC Capillary 08/26/2025 4:28 AM EDT [facility] Blood Capillary blood specimen / Unknown 08/26/2025 4:27 AM EDT 08/26/2025 4:28 AM EDT Juan Otero MD LAB POINT OF CARE TEST DOCKED DEVICE UNSOLICITED RESULTS Final Result [facility] [address] [place] [address] * (ABNORMAL) POCT glucose meter (08/25/2025 8:36 PM EDT) [facility] POCT Glucose 255(H) 74 - 99 [...] for testing. Comment 08/25/2025 8:38 PM EDT [facility]ALTH[facility]ARE [facility] Probe Operator ID Tonya Lane 08/25/20 8:38 PM EDT [facility] Device ID [id number] 08/25/2025 8:38 PM EDT [facility]ALTH[facility] LAB Specimen Type POC Capillary 08/25/2025 8:38 PM EDT [facility] Blood Capillary blood specimen / Unknown 08/25/2025 8:36 PM EDT 08/25/2025 8:38 PM EDT Juan Otero MD LAB POINT OF CARE TEST DOCKED DEVICE UNSOLICITED RESULTS Final Result [facility] [address] [place] [address] * (ABNORMAL) POCT glucose meter (08/25/2025 4:51 PM EDT) POCT Glucose 145(H) 74 - 99 mg/dL [...] Comment 08/25/2025 4:52 PM EDT [facility]ALTH[facility]ARE LAB Probe Operator ID Tiffanie Suarez 025 4:52 PM EDT [facility]ALTH[facility]ARE LAB Device ID [id number] 08/25/2025 4:52 PM EDT [facility]ARE LAB Specimen Type POC Capillary 08/25/2025 4:52 PM EDT [facility] Blood Capillary blood specimen / Unknown 08/25/2025 4:51 PM EDT 08/25/2025 4:52 PM EDT Juan Otero MD LAB POINT OF CARE TEST DOCKED DEVICE UNSOLICITED RESULTS Final Result [facility] [address] [place] [address] * (ABNORMAL) POCT glucose meter (08/25/2025 12:38 PM EDT) POCT Glucose 113(H) 74 - 99 mg/dL [...] for testing. Comment 08/25/2025 12:40 PM EDT [facility] Probe Operator ID Tiffanie Suarez 025 12:40 PM EDT [facility]ALTH[facility] Device ID [id number] 08/25/2025 12:40 PM EDT [facility] LAB Specimen Type POC Capillary 08/25/2025 12:40 PM EDT [facility] Blood Capillary blood specimen / Unknown 08/25/2025 12:38 PM EDT 08/25/2025 12:40 PM EDT Juan Otero MD LAB POINT OF CARE TEST DOCKED DEVICE UNSOLICITED RESULTS Final Result [facility] [address] [place] [address] * (ABNORMAL) POCT glucose meter (08/25/2025 8:13 AM EDT) [facility] POCT Glucose 239(H) 74 - 99 mg/dL 08/25/2025 8:15 AM EDT [facility] Comment:Accuracy of [...] Comment 08/25/2025 8:15 AM EDT [facility] Probe Operator ID Tiffanie Suarez 025 8:15 AM EDT [facility] Device ID [id number] 08/25/2025 8:15 AM EDT [facility]ALTH[facility] LAB Specimen Type POC Capillary 08/25/2025 8:15 AM EDT [facility] Blood Capillary blood specimen / Unknown 08/25/2025 8:13 AM EDT 08/25/2025 8:15 AM EDT us Juan Otero MD LAB POINT OF CARE TEST DOCKED DEVICE UNSOLICITED RESULTS Final Result Performing Organization Address City/[facility] Co de Phone Number HEALTHCARE LAB [address] [place] [address] * (ABNORMAL) POCT glucose meter (08/24/2025 8:36 PM EDT) POCT Glucose 134(H) 74 - 99 mg/dL [...] Comment 08/24/2025 8:38 PM EDT [facility]ALTH[facility]ARE LAB Probe Operator ID Farooq Ruiz 025 8:38 PM EDT HEALTHCARE LAB Device ID [id number] 08/24/2025 8:38 PM EDT [facility] Specimen Type POC Capillary 08/24/2025 8:38 PM EDT [facility] Blood Capillary blood specimen / Unknown 08/24/2025 8:36 PM EDT 08/24/2025 8:38 PM EDT us Nikole Mann MD LAB POINT OF CARE TE ST DOCKED DEVICE UNSOLICITED RESULTS Final Result Performing Organization Address City/[facility]/ZIP Co de Phone Number HEALTHCARE LAB [address] [place] [address] * (ABNORMAL) POCT glucose meter (08/24/2025 4:54 PM EDT) POCT Glucose 157(H) 74 - 99 mg/dL [...] for testing. Comment 08/24/2025 4:56 PM EDT [facility]ALTHCARE LAB Probe Operator ID Ramona Bennett 08/24/2025 4:56 PM EDT HEALTH[facility]ARE LAB Device ID [id number] 08/24/2025 4:56 PM EDT [facility] LAB Specimen Type POC Capillary 08/24/2025 4:56 PM EDT [facility] Blood Capillary blood specimen / Unknown 08/24/2025 4:54 PM EDT 08/24/2025 4:56 PM EDT us Nikole Mann MD LAB POINT OF CARE TE ST DOCKED DEVICE UNSOLICITED RESULTS Final Result Performing Organization Address City/State/[facility] Co de Phone Number HEALTHCARE LAB [address] [place] [address] * VAS US Carotid Duplex Bilateral (08/24/2025 [...] POCT glucose meter (08/24/2025 12:10 PM EDT) Pathologist [facility] POCT Glucose 202(H) 74 - 99 mg/dL [...] Comment 08/24/2025 12:15 PM EDT HEALTHCARE LAB Probe Operator ID Ramona Bennett 08/24/2025 12:15 PM EDT HEALTHCARE LAB Device ID [id number] 08/24/2025 12:15 PM EDT [facility] LAB Specimen Type POC Capillary 08/24/2025 12:15 PM EDT [facility] Blood Capillary blood specimen / Unknown 08/24/2025 12:10 PM EDT 08/24/2025 12:15 PM EDT Nikole Mann MD LAB POINT OF CARE TE ST DOCKED DEVICE UNSOLICITED RESULTS Final Result [facility] [address] [place] [address] * (ABNORMAL) Hemoglobin A1c (08/24/2025 3:59 AM EDT) [facility] Hemoglobin A1c 6.0(H) <5.7 % 08/24/2025 5:13 PM EDT [facility] Blood Venous blood specimen / Unknown Venipuncture / Unknown 08/24/2025 3:59 AM EDT 08/24/2025 4:14 AM EDT Narrative [facility] - 08/24/2025 5:13 PM EDT HA1C Interpretive Data: Diagnosis of Diabetes: Diabetic > or = 6.5% Pre-diabetic 5.7 to 6.4% Non-diabetic < or = 5.6% Glycemic Targets for Type I and Type II Diabetics: Non- Adults <7.0% Adults <6.0% Children and Adolescents <7.5% Source: [place] [employer]. Standards of medical care in diabetes,2017. Diabetes Care.2017:40 (suppl 1):S1-S135. Brigid RIBEIRO LAB BLOOD ORDERABLES Final Result Performing Organization Address [facility]/ZIP Co de Phone Number [facility] [address] [place] [address] * Phosphorus (08/24/2025 3:59 AM EDT) Phosphorus, Plasma 4.1 2.5 - 4.5 mg/dL 08/24/2025 5:01 AM EDT [facility] Blood Venous blood specimen / Unknown Venipuncture / Unknown 08/24/2025 3:59 AM EDT 08/24/2025 4:22 AM EDT Kwesi Yang MD LAB BLOOD ORDERABLES Final R esult Performing Organization Address City/[facility] Co de Phone Number [facility] [address] [place] [address] * Magnesium, Plasma (08/24/2025 3:59 AM EDT) Magnesium, Plasma 2.2 1.9 - 2.4 mg/dL 08/24/2025 5:01 AM EDT [facility] Blood Venous blood specimen / Unknown Venipuncture / Unknown 08/24/2025 3:59 AM EDT 08/24/2025 4:22 AM EDT Kwesi Yang MD LAB BLOOD ORDERABLES Final R esult Performing Organization Address City/[facility] Co de Phone Number [facility] [address] [place] [address] * (ABNORMAL) Basic metabolic panel (08/24/2025 3:59 AM EDT) Glucose, Plasma 167(H) 74 - 99 mg/dL 08/24/2025 5:01 AM EDT [facility] BUN, Plasma 29(H) 8 - 23 mg/dL 08/24/2025 5:01 AM EDT [facility] Creatinine, Plasma 0.86 0.60 - 1.10 mg/dL 08/24/2025 5:01 AM EDT [facility] BUN/Creatinine Ratio 34 08/24/2025 5:01 AM EDT [facility] Sodium, Plasma 141 136 - 145 mmol/L 08/24/2025 5:01 AM EDT [facility] Potassium, Plasma 4.2 3.6 - 4.9 mmol/L 08/24/2025 5:01 AM EDT [facility] Chloride, Plasma 107 97 - 107 mmol/L 08/24/2025 5:01 AM EDT [facility] CO2, Plasma 19(L) 22 - 29 mmol/L 08/24/2025 5:01 AM EDT [facility] Anion Gap 15 6 - 16 mmol/L 08/24/2025 5:01 AM EDT [facility] Total Calcium, Plasma 9.0 8.9 - 10.2 mg/dL 08/24/2025 5:01 AM EDT [facility] eGFRcr 74.6 mL/min/1.7 3m*2 08/24/2025 5:01 AM EDT [facility] Comment:Reported eGFRcr in m L/min/1.73m2 is based the CKD-EPI 2020 equation that does not use a race coefficient. Blood Venous blood specimen / Unknown Venipuncture / Unknown 08/24/2025 3:59 AM EDT 08/24/2025 4:22 AM EDT us Kwesi Yang MD LAB BLOOD ORDERABLES Final R esult [facility] [address] [place] [address] * (ABNORMAL) CBC W/O Differential (08/24/2025 3:59 AM EDT) WBC Count 13.28(H) 3.70 - 10.30 10*3/uL LAB HEMATOLOGY METHOD 08/24/2025 4:18 AM EDT [facility] RBC Count 3.56(L) 3.90 - 5.20 10*6/uL LAB HEMATOLOGY METHOD 08/24/2025 4:18 AM EDT [facility] HGB 11.0(L) 11.2 - 15.7 g/dL LAB HEMATOLOGY METHOD 08/24/2025 4:18 AM EDT [facility] HCT 33.3(L) 34.0 - 45.0 % LAB HEMATOLOGY METHOD 08/24/2025 4:18 AM EDT [facility] Platelet Count 225 155 - 369 10*3/uL LAB HEMATOLOGY METHOD 08/24/2025 4:18 AM EDT [facility] MCV 94 79 - 98 fL LAB HEMATOLOGY METHOD 08/24/2025 4:18 AM EDT [facility] MCH 30.9 26.0 - 32.0 pg LAB HEMATOLOGY METHOD 08/24/2025 4:18 AM EDT [facility] MCHC 33.0 30.7 - 35.5 g/dL LAB HEMATOLOGY METHOD 08/24/2025 4:18 AM EDT [facility] RDW 12.5 11.5 - 14.5 % LAB HEMATOLOGY METHOD 08/24/2025 4:18 AM EDT [facility] MPV 9.3 8.8 - 12.5 fL LAB HEMATOLOGY METHOD 08/24/2025 4:18 AM EDT [facility] nRBC 0.0 <=0.0 per 100 WBCs LAB HEMATOLOGY METHOD 08/24/2025 4:18 AM EDT [facility] Blood Venous blood specimen / Unknown Venipuncture / Unknown 08/24/2025 3:59 AM EDT 08/24/2025 4:14 AM EDT us Kwesi Yang MD LAB BLOOD ORDERABLES Final R esult [facility] [address] [place] [address] * CT Shoulder Right wo IV Contrast [...] lesser humeral tuberosity, humeral head and neck. Lfbu-ix-pvjegywj osteoarthritis the glenohumeral joint. Moderate osteoarthritis of the acromioclavicular joint. There is a moderate joint effusion in the elbow. Soft tissue swelling and fullness adjacent to the humeral fracture, as consistent with hematoma/muscular injury. Otherwise diffuse subcutaneous fat stranding. Diffuse subcutaneous fat stranding. Chondrocalcinosis seen. Heterotopic calcification over the projection of the infraspinatus tendon, which may suggest calcific tendinopathy. Procedure Note Manuel Thornton MD - 08/24/2025 CLINICAL INDICATION: eval fx [...] lesser humeral tuberosity, humeral head and neck. Csfe-vc-kggdetci osteoarthritis the glenohumeral joint. Moderateosteoarthritis of the [...] QTC Interval 671 ms MUSE ECG P Union 66 degrees MUSE ECG R Union 27 degrees MUSE ECG T Wave Union 129 degrees MUSE ECG Diagnosis Poor data quality, interpretation may be adversely affected MUSE ECG Diagnosis Sinus tachycardia MUSE ECG Diagnosis T wave abnormality, consider lateral ischemia MUSE ECG Diagnosis Prolonged QT MUSE ECG Diagnosis Abnormal ECG MUSE ECG Diagnosis MUSE ECG Diagnosis Confirmed by Quique Peacokc ([id number]) on 08/24/2025 10:19:31 AM MUSE ECG [...] Yumiko Mays RN)1755 (Given - Provider: Yumiko Mays, RN)2305 (Given - Provider: Bety Paz RN) 0633 (Not Given - Provider: Bety Paz RN - Reason: Patient/family refused)1259 (Not Given - Provider: Yumiko Mays RN - Reason: Patient/family refused)1724 (Given - Provider: Yumiko Mays, THEODORE)2357 (Given - Provider: Gissell Hummel, THEODORE) 0532 (Given - Provider: Gissell Hummel RN)1225 (Given - Provider: Cheryl Dial RN) buPROPion [...] RN)2118 (Given - Provider: Bety Paz RN) 0852 (Not Given - Provider: Yumiko Mays RN - Reason: Hold for condition: must add comment - Comment: patient started choking on pills, provider notified.)2053 (Given - Provider: Gissell Hummel RN) 0904 (Given - Provider: Cheryl Dial RN) carvedilol [...] Discontinued 0845 (Given - Provider: Yumiko Mays RN)211 (Given - Provider: Bety Paz RN) 0851 [...] Units, Subcutaneous, 2 times nightly (2100 & 299), First dose on Sat08/24/25 at 2100, Until Discontinued, Routine 022 (Not Given - Provider: Bety Paz RN - Reason: Order parameters not met)2128 (Not Given - Provider: Bety Paz RN - Reason: Order parameters not met) 219 (Not Given - Provider: Bety Paz RN - Reason: Order parameters not met)2054 (Not Given - Provider: Gissell Hummel RN - Reason: Order parameters not met) 020 (Not Given - Provider: Gissell Hummel RN - Reason: Order parameters not met) methocarbamol (Robaxin) tablet 1,000 mg 1,000 mg, Oral, Every 8 hours, First dose (after last modification) on Sat08/27/25 at 0800, Until Discontinued, Routine 0845 (Given - Provider: Yumiko Mays RN)1649 (Not Given - Provider: Yumiko Mays RN - Reason: Patient/family refused)2305 (Given - Provider: Bety Paz RN) 0851 (Not Given - Provider: Yumiko Mays RN - Reason: Hold for condition: must add comment - Comment: patient started choking on pills. provider notified.)1512 (Not Given - Provider: Yumiko Mays RN - Reason: Patient/family refused)2357 (Given - Provider: Gissell Hummel RN) 0904 [...] 1600, Routine 1537 (Given - Provider: Yumiko Mays, THEODORE) pantoprazole (Protonix) EC tablet 40 mg 40 [...] - Provider: Bety Paz RN - Reason: Patient/family refused) 0851 (Not Given - Provider: Yumiok Mays RN - Reason: Hold for condition: must add comment - Comment: patient started choking on pills. provider notified.)2053 (Not Given - Provider: Gissell Hummel RN - Reason: Patient/family refused) 0903 (Not Given - Provider: Cheryl Dial RN - Reason: Patient/family refused) sodium chloride 0.9 % flush 10 mL(Linked [...] Paz RN)1242 (Given - Provider: Yumiko Mays, THEODORE)1755 (Given - Provider: Yumiko Mays RN)2227 (Given - Provider: Bety Paz RN) 0851 [...] THEODORE)1755 (See Alternative - Provider: Yumiko Mays, RN)2227 (See Alternative - Provider: Bety Paz RN) [...] documented as of this encounter Care Teams Senior Radiation Protection Technician Relationship Specialty Start Date End Date Brad Hassan MD [address] [place] [address] [place] [id number] PCP - General Internal Medicine 08/08/23 Greta Simpson DO [facility] [id number] Obstetrics and Gynecology 07/03/23 documented as of this encounter
--- OUTSIDE RECORDS SUMMARY | 2025-09-28 11:35 | XMS_ITS | Encounter Summary ---
Author Organization [facility] Address [address] [place] [address] Care Team Providers Care Perinatal Nurse Name Role Phone Greta Simpson DO Unavailable [phone] Brad Hassan MD Primary Care Provider [phone] Encounter Details Date Type Department Care Team (Latest Contact Info) Description 08/31/2025 Travel Social History Tobacco Use Types Packs/Day Years [...] time in the past 12 m [facility], were you homeless or living in a alf (including now)? No 08/24/2025 [facility] Utilities Answer Date Recorded In the past [...] drink first t fabian in the morning (EYE-COMMERCIAL BAKER HELPER) to steady your nerves or to get [...] on file documented as of this encounter Functional Status * Calculated C-SSRS [...] Hummel RN documented as of this encounter Plan of Treatment Upcoming Encounters Date Type Department Care Team (Late st Contact Info) Description 10/06/2025 9:10 AM EST Office Visit [facility] Orthopaedic Surgery & Sports Medicine [address], [address] [place] [address] Ricki Clark MD [address] [facility] [address] [place] [address] documented as of this encounter Visit Diagnoses Not on filedocumented in this encounter Additional Health Concerns Assessment Noted Time A fall risk assessment has been complete d for the patient 09/02/2023 4:03 PM EDT A Body Mass Index follow-up plan has been documented for the patient 09/01/2025 1:30 PM EDT documented as of this encounter Care Teams Perinatal Nurse Relationship Specialty Start Date End Date Brad Hassan MD [address] [place] [address] [place] [address] PCP - General Internal Medicine 08/08/23 Greta Simpson DO [facility] G4 [id number] Obstetrics and Gynecology 07/03/23 documented as of this encounter
--- OUTSIDE RECORDS SUMMARY | 2025-09-28 11:35 | XMS_ITS | Encounter Summary ---
Author Organization [facility] Address [address] [place] [address] Care Team Providers Care Animal Caretaker Supervisor Name Role Phone Greta Simpson DO Unavailable [phone] Brad Hassan MD Primary Care Provider [phone] Encounter Details Date Type Department Care Team (Latest Contact Info) Description 08/27/2025 Travel Social History Tobacco Use Types Packs/Day [...] any time in the past 12 m [facility], were you homeless or living in a senior living (including now)? 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 Wish to be (Past 1 Month) No 08/27/2025 8:00 PM EDT Yeimi Dickson RN 2. Non-Specific Active Suici giorgi Thoughts (Past 1 Month) No 08/27/2025 8:00 PM EDT Eyad Dickson RN 6. Suicidal Behavior (Lifetime) No 8:00 PM EDT Nova Dickson, THEODORE documented as of this encounter Plan of Treatment Upcoming Encounters Date Type Department Care Team (Late st Contact Info) Description 10/06/2025 9:10 AM EST Office Visit [facility] Orthopaedic Surgery & Sports Medicine [address], [address] [place] [address] iRcki Clark MD [address] [place] [address] documented as of this encounter Visit Diagnoses Not on filedocumented in this encounter Additional Health Concerns Assessment Noted Time A fall risk assessment has been complete d for the patient 09/02/2023 4:03 PM EDT A Body Mass Index follow-up plan has been documented for the patient 09/01/2025 1:30 PM EDT documented as of this encounter Care Teams Animal Caretaker Supervisor Relationship Specialty Start Date End Date Brad Hassan MD [address] [place] [address] PCP - General Internal Medicine 08/08/23 Greta Simpson DO [facility] G4 [id number] Obstetrics and Gynecology 07/03/23 documented as of this encounter
--- OUTSIDE RECORDS SUMMARY | 2025-09-28 11:35 | XMS_ITS | Encounter Summary ---
Author Organization [facility] Address [address] [place] [address] Care Team Providers Care Research Engineer Marine Equipment Name Role Phone Greta Simpson DO Unavailable [phone] Brad Hassan MD Primary Care Provider [phone] Encounter Details Date Type Department Care Team (Latest Contact Info) Description 08/24/2025 Travel Social History Tobacco Use Types Packs/Day [...] any time in the past 12 m [facility], were you homeless or living in a fci (including now)? No 08/24/2025 [facility] Utilities Answer Date Recorded In the [...] drink first t fabian in the morning (EYE-MANAGING DIRECTOR) to steady your nerves or to get [...] Date of Assessment Author No Risk Indicated 08/24/2025 7:30 AM EDT Mal Nolen, RN * Question Answer Date of Assessment Author 1. Wish to be (Past 1 Month) No 025 7:30 AM EDT Mal Nolen, RN 2. Non-Specific Active Suici giorgi Thoughts (Past 1 Month) No 08/24/2025 7:30 AM EDT Mal Nolen, RN 6. Suicidal Behavior (Lifetime) No 7:30 AM EDT Mal Nolen, RN documented as of this encounter Plan of Treatment Upcoming Encounters Date Type Department Care Team (Late st Contact Info) Description 10/06/2025 9:10 AM EST Office Visit [facility] Orthopaedic Surgery & Sports Medicine [address], [address] [place] [address] Ricki Clark MD [address] [facility] [address] [place] [address] documented as of this encounter Visit Diagnoses Not on filedocumented in this encounter Additional Health Concerns Assessment Noted Time A fall risk assessment has been complete d for the patient 09/02/2023 4:03 PM EDT A Body Mass Index follow-up plan has been documented for the patient 09/01/2025 1:30 PM EDT documented as of this encounter Care Teams Research Engineer Marine Equipment Relationship Specialty Start Date End Date Brad Hassan MD [address] [place] [address] PCP - General Internal Medicine 08/08/23 Greta Simpson DO [facility] G4 [id number] Obstetrics and Gynecology 07/03/23 documented as of this encounter
--- OUTSIDE RECORDS SUMMARY | 2025-09-28 11:35 | XMS_ITS | Encounter Summary ---
Author Organization [facility] Address [address] [place] [address] Care Team Providers Care Cell Biologist Name Role Phone Greta Simpson DO Unavailable [phone] Brad Hassan MD Primary Care Provider [phone] Encounter Details Date Type Department Care Team (Latest Contact Info) Description 08/26/2025 Travel Social History Tobacco Use Types Packs/Day [...] any time in the past 12 m [facility], were you homeless or living in a long term (including now)? No 08/24/2025 [facility] Utilities Answer Date Recorded In the [...] drink first t fabian in the morning (EYE-DREDGE HAND) to steady your nerves or to get [...] Date of Assessment Author No Risk Indicated 08/26/2025 8:00 PM EDT Nova Dickson, THEODORE * Question Answer Date of Assessment Author 1. Wish to be (Past 1 Month) No 08/26/2025 8:00 PM EDT Yeimi Dickson RN 2. Non-Specific Active Suici giorgi Thoughts (Past 1 Month) No 08/26/2025 8:00 PM EDT Eyad Dickson RN 6. Suicidal Behavior (Lifetime) No 8:00 PM EDT Nova Dickson, THEODORE documented as of this encounter Plan of Treatment Upcoming Encounters Date Type Department Care Team (Late st Contact Info) Description 10/06/2025 9:10 AM EST Office Visit [facility] Orthopaedic Surgery & Sports Medicine [address], [address] [place] [address] Ricki Clark MD [address] [place] [address] documented as of this encounter Visit Diagnoses Not on filedocumented in this encounter Additional Health Concerns Assessment Noted Time A fall risk assessment has been complete d for the patient 09/02/2023 4:03 PM EDT A Body Mass Index follow-up plan has been documented for the patient 09/01/2025 1:30 PM EDT documented as of this encounter Care Teams Cell Biologist Relationship Specialty Start Date End Date Brad Hassan MD [address] [place] [address] PCP - General Internal Medicine 08/08/23 Greta Simpson DO [facility] G4 [id number] Obstetrics and Gynecology 07/03/23 documented as of this encounter
--- NOTE | 2025-09-28 11:36 | XR_ITS ---
FINAL REPORT CLINICAL HISTORY: RIGHT ARM PAIN COMPARISON: 08/23/2025 FINDINGS: Two views of the right humerus were obtained. Again seen is a comminuted fracture of the humeral head and neck which is displaced. The degree of displacement appears similar to the prior humeral exam. There is no acute soft tissue abnormality. IMPRESSION: Stable humerus fracture. Reviewed, Interpreted and Dictated by Cherrie Bajwa MD Transcribed by Ivelisse Holden Authenticated and [facility]
--- NOTE | 2025-09-28 11:36 | XR_ITS ---
FINAL REPORT CLINICAL HISTORY: PAIN IN RIGHT CLAVICLE FINDINGS: 2 views of the right clavicle were obtained. There is no prior exam for comparison. There is no acute osseous abnormality of the right clavicle. 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 IMPRESSION: No acute osseous abnormality of the right clavicle. Reviewed, Interpreted and Dictated by Cherrie Bajwa MD Transcribed by Ivelisse Holden Authenticated and [facility]
--- OUTSIDE RECORDS SUMMARY | 2025-09-28 11:36 | XMS_ITS | Encounter Summary ---
Author Organization [facility] Address [address] [place] [address] Care Team Providers Care Contract Management Specialist Name Role Phone Greta Simpson DO Unavailable [phone] Brad Hassan MD Primary Care Provider [phone] Encounter Details Date Type Department Care Team (Late st Contact Info) Description 08/23/2025 Orders Only External Location [address] [place] [phone] Provider, External Social History Tobacco Use Types Packs/Day Years [...] the money to buy more. Never true 10/21/20 25 Within the past 12 months, t [...] any time in the past 12 m [facility], were you homeless or living in a fci (including now)? No 08/24/2025 [facility] Utilities Answer Date Recorded In the past 12 months has th e [employer], gas, oil, or water company threatened to [...] drink first t fabian in the morning (EYE-ANIMAL HOSPITAL OFFICE SUPERVISOR) to steady your nerves or to get [...] Assessment Author No Risk Indicated 08/27/2025 8:00 AM EDT Vivian Keller, RN * Question Answer Date of Assessment Author 1. Wish to be (Past 1 Month) No 025 8:00 AM EDT Vivian Keller, RN 2. Non-Specific Active Suici giorgi Thoughts (Past 1 Month) No 08/27/2025 8:00 AM EDT Vivian Keller , RN 6. Suicidal Behavior (Lifetime) No 8:00 AM EDT Vivian Keller, RN documented as of this encounter Plan of Treatment Upcoming Encounters Date Type Department Care Team (Late st Contact Info) Description 10/06/2025 9:10 AM EST Office Visit [facility] Orthopaedic Surgery & Sports Medicine [address], [address] [place] [address] Ricki Clark MD [address] [place] [address] documented as of this encounter Procedures Procedure Name Priority Date/Time Associated Diagnosis Comments XR MSK OUTSIDE IMAGES 08/23/2025 4:15 PM EDT documented in this encounter Results * XR MSK OUTSIDE IMAGES (08/23/2025 4:15 PM EDT) Anatomical Region Laterality Modality Radiographic Clementine ging 08/23/2025 4:15 PM EDT us External Provider IMG XR PROCEDURES Edited Resul t - Final documented in this encounter Visit Diagnoses Not on filedocumented in this encounter Additional Health Concerns Assessment Noted Time A fall risk assessment has been complete d for the patient 09/02/2023 4:03 PM EDT A Body Mass Index follow-up plan has been documented for the patient 09/01/2025 1:30 PM EDT documented as of this encounter Care Teams Contract Management Specialist Relationship Specialty Start Date End Date Brad Hassan MD [address] [place] [address] PCP - General Internal Medicine 08/08/23 Greta Simpson DO [place] [address] [id number] Obstetrics and Gynecology 07/03/23 documented as of this encounter
--- OUTSIDE RECORDS SUMMARY | 2025-09-28 11:36 | XMS_ITS | Encounter Summary ---
Author Organization [facility] Address [address] [place] [address] Care Team Providers Care Job Honer Name Role Phone Greta Simpson DO Unavailable [phone] Brad Hassan MD Primary Care Provider [phone] Encounter Details Date Type Department Care Team (Late st Contact Info) Description 08/23/2025 Orders Only External Location [address] [place] [phone] Provider, External Social History Tobacco Use Types [...] time in the past 12 m [facility], were you homeless or living in a snf (including now)? No 08/24/2025 [facility] Utilities Answer Date Recorded In the past 12 months has th e [employer], gas, oil, or water company threatened to [...] drink first t fabian in the morning (EYE-PAVING STONE INSTALLER) to steady your nerves or to get [...] Risk Indicated 08/27/2025 8:00 AM EDT Vivian Keller RN * Question Answer Date of Assessment [...] Description 10/06/2025 9:10 AM EST Office Visit [facility] Orthopaedic Surgery & Sports Medicine [address], [address] [place] [address] Ricki Clark MD [address] [place] [address] documented as of this encounter Procedures Procedure Name Priority Date/Time Associated Diagnosis Comments CT MSK OUTSIDE IMAGES 08/23/2025 5:52 PM EDT documented in this encounter Results * CT MSK OUTSIDE IMAGES (08/23/2025 5:52 PM EDT) Anatomical Region Laterality Modality Computed Tomogra phy 08/23/2025 5:52 PM EDT us External Provider IMG CT PROCEDURES Edited Resul t - Final documented in this encounter Visit Diagnoses Not on filedocumented in this encounter Additional Health Concerns Assessment Noted Time A fall risk assessment has been complete d for the patient 09/02/2023 4:03 PM EDT A Body Mass Index follow-up plan has been documented for the patient 09/01/2025 1:30 PM EDT documented as of this encounter Care Teams Job Honer Relationship Specialty Start Date End Date Brad Hassan MD [address] [place] [address] PCP - General Internal Medicine 08/08/23 Greta Simpson DO [place] [address] [id number] Obstetrics and Gynecology 07/03/23 documented as of this encounter
--- OUTSIDE RECORDS SUMMARY | 2025-09-28 11:36 | XMS_ITS | Encounter Summary ---
Author Organization [facility] Address [address] [place] [address] Care Team Providers Care Sales And Marketing Professional Name Role Phone Greta Simpson DO Unavailable [phone] Brad Hassan MD Primary Care Provider [phone] Encounter Details Date Type Department Care Team (Late st Contact Info) Description 08/23/2025 Orders Only External Location [address] [place] [phone] Provider, External Social History Tobacco Use Types [...] any time in the past 12 m [facility], were you homeless or living in a group home (including now)? No 08/24/2025 [facility] Utilities Answer Date Recorded In the past 12 months has th e [employer], gas, oil, or water company threatened to [...] drink first t fabian in the morning (EYE-BUSINESS OBJECTS ARCHITECT) to steady your nerves or to get [...] Wish to be (Past 1 Month) No 8:00 AM EDT Vivian Keller, RN 2. Non-Specific Active Suici giorgi Thoughts (Past 1 Month) No 08/27/2025 8:00 AM EDT Vivian Keller , RN 6. Suicidal Behavior (Lifetime) No 8:00 AM EDT Vivian Keller, RN documented as of this encounter Plan of Treatment Upcoming Encounters Date Type Department Care Team (Late st Contact Info) Description 10/06/2025 9:10 AM EST Office Visit [facility] Orthopaedic Surgery & Sports Medicine [address], [address] [place] [address] Ricki Clark MD [address] [place] [address] documented as of this encounter Procedures Procedure Name Priority Date/Time Associated Diagnosis Comments CT THORACIC OUTSIDE IMAGES 08/23/2025 5:52 PM EDT documented in this encounter Results * CT THORACIC OUTSIDE IMAGES (08/23/2025 5:52 PM EDT) Anatomical [...] documented as of this encounter Care Teams Sales And Marketing Professional Relationship Specialty Start Date End Date Brad Hassan MD [address] [place] [address] PCP - General Internal Medicine 08/08/23 Greta Sipmson DO [place] [address] [id number] Obstetrics and Gynecology 07/03/23 documented as of this encounter
--- OUTSIDE RECORDS SUMMARY | 2025-09-28 11:36 | XMS_ITS | Encounter Summary ---
Author Organization [facility] Address [address] [place] [address] Care Team Providers Care Presentation Designer Name Role Phone Greta Simpson DO Unavailable [phone] Brad Hassan MD Primary Care Provider [phone] Encounter Details Date Type Department Care Team (Late st Contact Info) Description 08/23/2025 Orders Only External Location [address] [place] [phone] Provider, External Social History Tobacco Use Types [...] were you homeless or living in a penitentiary (including now)? No 08/24/2025 [facility] Utilities Answer Date Recorded In the past 12 months has th e [employer], gas, oil, or water company threatened to [...] drink first t fabian in the morning (EYE-CASUALTY CLAIM ADJUSTER) to steady your nerves or to get [...] Description 10/06/2025 9:10 AM EST Office Visit [facility] Orthopaedic Surgery & Sports Medicine [address], [address] [place] [address] Ricki Clark MD [address] [place] [address] documented as of this encounter [...] documented as of this encounter Care Teams Presentation Designer Relationship Specialty Start Date End Date Brad Hassan MD [address] [place] [address] PCP - General Internal Medicine 08/08/23 Greta Simpson DO [place] [address] [id number] Obstetrics and Gynecology 07/03/23 documented as of this encounter
--- OUTSIDE RECORDS SUMMARY | 2025-09-28 11:36 | XMS_ITS | Encounter Summary ---
Author Organization Healthcare Address [address] [place] [address] Care Team Providers Care Mold Loft Worker Name Role Phone Greta Simpson DO Unavailable [phone] Brad Hassan MD Primary Care Provider [phone] Encounter Details Date Type Department Care Team (Late st Contact Info) Description 08/23/2025 Orders Only External Location [address] [place] [phone] Provider, External Social History Tobacco Use Types [...] time in the past 12 m [facility], were you homeless or living in a assisted (including now)? No 08/24/2025 [facility] Utilities Answer Date Recorded In the past 12 months has th e [employer] company, gas, oil, or water company threatened to [...] drink first t fabian in the morning (EYE-ENVIRONMENTAL MANAGEMENT SPECIALIST) to steady your nerves or to get [...] Description 10/06/2025 9:10 AM EST Office Visit [facility] Orthopaedic Surgery & Sports Medicine [address], [address] [place] [address] Ricki Clark MD [address] [place] [address] documented as of this encounter [...] documented as of this encounter Care Teams Mold Loft Worker Relationship Specialty Start Date End Date Brad Hassan MD [address] [place] [address] PCP - General Internal Medicine 08/08/23 Greta Simpson DO [place] [address] [id number] Obstetrics and Gynecology 07/03/23 documented as of this encounter
--- OUTSIDE RECORDS SUMMARY | 2025-09-28 11:36 | XMS_ITS | Encounter Summary ---
Author Organization Healthcare Address [address] [place] [address] Care Team Providers Care Health Coach Name Role Phone Greta Simpson DO Unavailable [phone] Brad Hassan MD Primary Care Provider [phone] Encounter Details Date Type Department Care Team (Late st Contact Info) Description 08/23/2025 Orders Only External Location [address] [place] [phone] Provider, External Social History Tobacco Use Types [...] any time in the past 12 m [facility], were you homeless or living in a assisted (including now)? No 08/24/2025 [facility] Utilities Answer Date Recorded In the past 12 months has th e [employer], gas, oil, or water company threatened to [...] drink first t fabian in the morning (EYE-GI ASST) to steady your nerves or to get [...] Orthopaedic Surgery & Sports Medicine [address], [address] [place] [address] Ricki Clark MD [address] [place] [address] documented as of this encounter [...] documented as of this encounter Care Teams Health Coach Relationship Specialty Start Date End Date Brad Hassan MD [address] [place] [address] PCP - General Internal Medicine 08/08/23 Greta Simpson DO [place] [address] [address] Obstetrics and Gynecology 07/03/23 documented as of this encounter
--- OUTSIDE RECORDS SUMMARY | 2025-09-28 11:36 | XMS_ITS | Encounter Summary ---
Author Organization Healthcare Address [address] [place] [address] Care Team Providers Care Income Tax Preparer Name Role Phone Greta Simpson DO Unavailable [phone] Brad Hassan MD Primary Care Provider [phone] Encounter Details Date Type Department Care Team (Late st Contact Info) Description 08/23/2025 Orders Only External Location [address] [place] [phone] Provider, External Social History Tobacco Use Types [...] any time in the past 12 m [facility], were you homeless or living in a group home (including now)? No 08/24/2025 [facility] Utilities Answer Date Recorded In the past 12 months has th e [employer], gas, oil, or water company threatened to [...] drink first t fabian in the morning (EYE-CREATIVE ART THERAPIST) to steady your nerves or to get [...] Description 10/06/2025 9:10 AM EST Office Visit [facility] Orthopaedic Surgery & Sports Medicine [address], [address] [place] [address] Ricki Clark MD [address] [place] [address] documented as of this encounter Procedures Procedure Name Priority Date/Time Associated Diagnosis Comments CT NEURO OUTSIDE IMAGES 08/23/2025 4:15 PM EDT documented in this encounter Results * CT NEURO OUTSIDE IMAGES (08/23/2025 4:15 PM EDT) Anatomical Region Laterality Modality Computed Tomogra phy 08/23/2025 4:15 PM EDT us External Provider IMG CT [...] documented as of this encounter Care Teams Income Tax Preparer Relationship Specialty Start Date End Date Brad Hassan MD [address] [place] [address] PCP - General Internal Medicine 08/08/23 Greta Simpson DO [place] [address] [id number] Obstetrics and Gynecology 07/03/23 documented as of this encounter
--- OUTSIDE RECORDS SUMMARY | 2025-09-28 11:36 | XMS_ITS | Encounter Summary ---
Author Organization [facility] Address [address] [place] [address] Care Team Providers Care Sales Appointment Coordinator Name Role Phone Greta Simpson DO Unavailable [phone] Brad Hassan MD Primary Care Provider [phone] Encounter Details Date Type Department Care Team (Latest Contact Info) Description 08/23/2025 Travel Social History Tobacco Use Types Packs/Day [...] any time in the past 12 m [facility], were you homeless or living in a fdc (including now)? No 08/24/2025 [facility] Utilities Answer Date Recorded In the past [...] drink first t fabian in the morning (EYE-WATER FABRICATOR OPERATOR) to steady your nerves or to get [...] on file documented as of this encounter Plan of Treatment Upcoming Encounters Date Type Department Care Team (Late st Contact Info) Description 10/06/2025 9:10 AM EST Office Visit [facility] Orthopaedic Surgery & Sports Medicine [address], [address] [place] [id number] Ricki Clark MD [address] [place] [address] documented as of this encounter Visit Diagnoses Not on filedocumented in this encounter Additional Health Concerns Assessment Noted Time A fall risk assessment has been complete d for the patient 09/02/2023 4:03 PM EDT A Body Mass Index follow-up plan has been documented for the patient 09/01/2025 1:30 PM EDT documented as of this encounter Care Teams Sales Appointment Coordinator Relationship Specialty Start Date End Date Brad Hassan MD [address] [place] [address] PCP - General Internal Medicine 08/08/23 Greta Simpson DO [facility] [address] Obstetrics and Gynecology 07/03/23 documented as of this encounter
--- OUTSIDE RECORDS SUMMARY | 2025-09-28 11:36 | XMS_ITS | Encounter Summary ---
Author Organization Healthcare Address [address] [place] [address] Care Team Providers Care Pipe Cleaner Name Role Phone Greta Simpson DO Unavailable [phone] Brad Hassan MD Primary Care Provider [phone] Encounter Details Date Type Department Care Team (Late st Contact Info) Description 08/23/2025 Orders Only External Location [address] [place] [address] Julianna Copeland, DO [address] [place] [address] Social History Tobacco Use Types Packs/Day Years [...] any time in the past 12 m [facility], were you homeless or living in a snf (including now)? No 08/24/2025 [facility] Utilities Answer Date Recorded In the [...] drink first t fabian in the morning (EYE-HEALTH EDUCATION SPECIALIST) to steady your nerves or to [...] Description 10/06/2025 9:10 AM EST Office Visit [facility] Orthopaedic Surgery & Sports Medicine [address], [address] [place] [address] Ricki Clark MD [address] [place] [address] documented as of this encounter Procedures Procedure Name Priority Date/Time Associated Diagnosis Comments XR OUTSIDE IMAGES 08/23/2025 7:31 PM EDT documented in this encounter Results * XR OUTSIDE IMAGES (08/23/2025 7:31 PM EDT) Anatomical Region Laterality Modality Radiographic Clementine ging 08/23/2025 7:31 PM EDT Julianna Copeland DO IMG XR PROCEDURES Edited Result - Final documented in this encounter Visit Diagnoses Not on filedocumented in this encounter Additional Health Concerns Assessment Noted Time A fall risk assessment has been complete d for the patient 09/02/2023 4:03 PM EDT A Body Mass Index follow-up plan has been documented for the patient 09/01/2025 1:30 PM EDT documented as of this encounter Care Teams Pipe Cleaner Relationship Specialty Start Date End Date Brad Hassan MD [address] [place] [address] PCP - General Internal Medicine 08/08/23 Greta Simpson DO [facility] [address] Obstetrics and Gynecology 07/03/23 documented as of this encounter
--- OUTSIDE RECORDS SUMMARY | 2025-09-28 11:36 | XMS_ITS | Encounter Summary ---
Author Organization Healthcare Address [address] [place] [address] Care Team Providers Care Insurance Business Analyst Name Role Phone Greta Simpson DO Unavailable [phone] Brad Hassan MD Primary Care Provider [phone] Encounter Details Date Type Department Care Team (Late st Contact Info) Description 08/23/2025 Orders Only External Location [address] [place] [phone] Provider, External Social History Tobacco Use Types [...] any time in the past 12 m [facility], were you homeless or living in a longterm (including now)? No 08/24/2025 [facility] Utilities Answer Date Recorded In the past 12 months has th e [employer], gas, oil, or water company threatened to [...] drink first t fabian in the morning (EYE-GENERAL ASSIGNMENT REPORTER) to steady your nerves or to get [...] Description 10/06/2025 9:10 AM EST Office Visit [facility] Orthopaedic Surgery & Sports Medicine [address], [address] [place] [address] Ricki Clark MD [address] [place] [address] documented as of this encounter Procedures Procedure Name Priority Date/Time Associated Diagnosis Comments CT NEURO OUTSIDE IMAGES 08/23/2025 4:13 PM EDT documented in this encounter Results * CT NEURO OUTSIDE IMAGES (08/23/2025 4:13 PM EDT) Anatomical Region Laterality Modality Computed Tomogra phy 08/23/2025 4:13 PM EDT us External Provider IMG CT [...] documented as of this encounter Care Teams Insurance Business Analyst Relationship Specialty Start Date End Date Brad Hassan MD [address] [place] [address] PCP - General Internal Medicine 08/08/23 Greta Simpson DO [address] [id number] Obstetrics and Gynecology 07/03/23 documented as of this encounter
--- OUTSIDE RECORDS SUMMARY | 2025-09-28 11:36 | XMS_ITS | Encounter Summary ---
Author Organization Healthcare Address [address] [place] [address] Care Team Providers Care Pipe Or Steam Fitter Furnace Installer Name Role Phone Greta Simpson DO Unavailable [phone] Brad Hassan MD Primary Care Provider [phone] Encounter Details Date Type Department Care Team (Late st Contact Info) Description 08/23/2025 Orders Only External Location [address] [place] [phone] Provider, External Social History Tobacco Use Types [...] any time in the past 12 m [facility], were you homeless or living in a [place] [facility] [place] facility (including now)? No 08/24/2025 [facility] Utilities Answer Date Recorded In the past 12 months has th e [employer], gas, oil, or water company threatened to [...] drink first t fabian in the morning (EYE-REPAIRER FINISHED METAL) to steady your nerves or to get [...] Description 10/06/2025 9:10 AM EST Office Visit [facility] Orthopaedic Surgery & Sports Medicine [address], 1[address] [place] [address] Ricki Clark MD [address] [place] [address] documented as of this encounter [...] as of this encounter Care Teams Pipe Or Steam Fitter Furnace Installer Relationship Specialty Start Date End Date Brad Hassan MD [address] [place] [address] PCP - General Internal Medicine 08/08/23 Greta Simpson DO [address] [id number] Obstetrics and Gynecology 07/03/23 documented as of this encounter
--- OUTSIDE RECORDS SUMMARY | 2025-09-28 11:36 | XMS_ITS | Encounter Summary ---
Author Organization Healthcare Address [address] [place] [address] Care Team Providers Care Plastic Design Applier Name Role Phone Greta Simpson DO Unavailable [phone] Brad Hassan MD Primary Care Provider [phone] Encounter Details Date Type Department Care Team (Late st Contact Info) Description 08/23/2025 Orders Only External Location [address] [place] [phone] Provider, External Social History Tobacco Use Types [...] in a assisted (including now)? No 08/24/2025 [facility] Utilities Answer Date Recorded In the past 12 months has th e [employer], gas, oil, or water company threatened to [...] drink first t fabian in the morning (EYE-ESTATE ATTORNEY) to steady your nerves or to get [...] Description 10/06/2025 9:10 AM EST Office Visit [facility] Orthopaedic Surgery & Sports Medicine [address], [address] [place] [address] Ricki Clark MD [address] [place] [address] documented as of this encounter [...] documented as of this encounter Care Teams Plastic Design Applier Relationship Specialty Start Date End Date Brad Hassan MD [address] [place] [address] PCP - General Internal Medicine 08/08/23 Greta Simpson DO [address] [id number] Obstetrics and Gynecology 07/03/23 documented as of this encounter
--- OUTSIDE RECORDS SUMMARY | 2025-09-28 11:36 | XMS_ITS | Encounter Summary ---
Author Organization Healthcare Address [address] [place] [address] Care Team Providers Care Marketing Secretary Name Role Phone Greta Simpson DO Unavailable [phone] Brad Hassan MD Primary Care Provider [phone] Encounter Details Date Type Department Care Team (Late st Contact Info) Description 08/23/2025 Orders Only External Location [address] [place] [address] Julianna Copeland, DO [address] [place] [address] Social History Tobacco Use Types [...] any time in the past 12 m [facility], were you homeless or living in a nursing home (including now)? No 08/24/2025 [facility] Utilities Answer Date Recorded In the [...] drink first t fabian in the morning (EYE-CERTIFIED FINANCIAL PLANNER) to steady your nerves or to get [...] Description 10/06/2025 9:10 AM EST Office Visit [facility] Orthopaedic Surgery & Sports Medicine [address], [address] [place] [address] Ricki Clark MD [address] [place] [address] documented as of this encounter Procedures Procedure Name Priority Date/Time Associated Diagnosis Comments XR OUTSIDE IMAGES 08/23/2025 4:15 PM EDT documented in this encounter Results * XR OUTSIDE IMAGES (08/23/2025 4:15 PM EDT) Anatomical Region Laterality Modality Radiographic Clementine ging 08/23/2025 4:15 PM EDT Julianna Copeland DO IMG XR [...] documented as of this encounter Care Teams Marketing Secretary Relationship Specialty Start Date End Date Brad Hassan MD [address] [place] [address] PCP - General Internal Medicine 08/08/23 Greta Simpson DO [facility] [address] Obstetrics and Gynecology 07/03/23 documented as of this encounter
--- OUTSIDE RECORDS SUMMARY | 2025-09-28 11:36 | XMS_ITS | Encounter Summary ---
Author Organization Healthcare Address [address] [place] [address] Care Team Providers Care Cake Washer Name Role Phone Greta Simpson DO Unavailable [phone] Brad Hassan MD Primary Care Provider [phone] Encounter Details Date Type Department Care Team (Late st Contact Info) Description 08/23/2025 Orders Only External Location [address] [place] [phone] Provider, External Social History Tobacco Use Types [...] any time in the past 12 m [facility], were you homeless or living in a chcf (including now)? No 08/24/2025 [facility] Utilities Answer Date Recorded In the past 12 months has th e [employer], gas, oil, or water company threatened to [...] drink first t fabian in the morning (EYE-REGIONAL SALES ENGINEER) to steady your nerves or to get [...] Description 10/06/2025 9:10 AM EST Office Visit [facility] Orthopaedic Surgery & Sports Medicine [address], [address] [place] [address] Ricki Clark MD [address] [place] [address] documented as of this encounter [...] documented as of this encounter Care Teams Cake Washer Relationship Specialty Start Date End Date Brad Hassan MD [address] [place] [address] PCP - General Internal Medicine 08/08/23 Greta Simpson DO [address] [id number] Obstetrics and Gynecology 07/03/23 documented as of this encounter
--- OUTSIDE RECORDS SUMMARY | 2025-09-28 11:36 | XMS_ITS | Encounter Summary ---
Author Organization Healthcare Address [address] [place] [address] Care Team Providers Care Reliner Name Role Phone Greta Simpson DO Unavailable [phone] Brad Hassan MD Primary Care Provider [phone] Encounter Details Date Type Department Care Team (Late st Contact Info) Description 08/23/2025 Orders Only External Location [address] [place] [address] Julianna Copeland, DO [address] [place] [address] Social History Tobacco Use Types [...] any time in the past 12 m [facility], were you homeless or living in a prison (including now)? No 08/24/2025 [facility] Utilities Answer Date Recorded In the past [...] drink first t fabian in the morning (EYE-UTILITY WORKER FILM PROCESSING) to steady your nerves or to get [...] Description 10/06/2025 9:10 AM EST Office Visit [facility] Orthopaedic Surgery & Sports Medicine [address], [address] [place] [address] Ricki Clark MD [address] [place] [address] documented as of this encounter Procedures Procedure Name Priority Date/Time Associated Diagnosis Comments CT NEURO OUTSIDE IMAGES 08/23/2025 5:49 PM EDT documented in this encounter Results * CT NEURO OUTSIDE IMAGES (08/23/2025 5:49 PM EDT) Anatomical Region Laterality Modality Computed Tomogra phy 08/23/2025 5:49 PM EDT Julianna Copeland DO IMG CT PROCEDURES Edited Result - Final documented in this encounter Visit Diagnoses Not on filedocumented in this encounter Additional Health Concerns Assessment Noted Time A fall risk assessment has been complete d for the patient 09/02/2023 4:03 PM EDT A Body Mass Index follow-up plan has been documented for the patient 09/01/2025 1:30 PM EDT documented as of this encounter Care Teams Reliner Relationship Specialty Start Date End Date Brad Hassan MD [address] [place] [address] PCP - General Internal Medicine 08/08/23 Greta Simpson DO [facility] [address] Obstetrics and Gynecology 07/03/23 documented as of this encounter
--- OUTSIDE RECORDS SUMMARY | 2025-09-28 11:36 | XMS_ITS | Clinical Summary ---
Author Organization [facility] Address [address] [place] [address] Care Team Providers Care Elevated Motorman Name Role Phone Greta Simpson DO Unavailable [phone] Brad Hassan MD Primary Care Provider [phone] Allergies Active Allergy Reactions Criticality Noted Date Comments Aspirin GI bleeding High 08/08/2023 Medications FLUoxetine (PROzac) 40 MG capsule Take 1 capsule by mouth 2 times a day. Active buPROPion XL (Wellbutrin XL) 300 MG 24 hr tablet Take 1 tablet by mouth every morning. Do not crush, chew, or split. Active Cinnamon 500 MG tablet Take 1,000 mg by mouth 1 (one) time each day in the morning. Active omega-3 1000 MG capsule Take 1 capsule by mouth every morning. Active acetaminophen (Tylenol) 500 MG tablet Take 1 tablet by mouth every 6 hours as needed. Active carvedilol (Coreg) 3.125 MG tablet Take 1 tablet by mouth 2 times a day with meals. Active empagliflozin (Jardiance) 25 MG Take 1 tablet by mouth daily. Active hydrOXYzine HCl (Atarax) 25 MG tablet Take 1 tablet by mouth 4 times a day. Active losartan (Cozaar) 25 MG tablet Take 1 tablet by mouth daily. Active omeprazole (PriLOSEC) [address] capsule Take 1 capsule by mouth daily. Do not crush or chew. Active pravastatin (Pravachol) 20 MG tablet Take 1 tablet by mouth daily. Active spironolactone (Aldactone) 25 MG tablet Take 0.5 tablets by mouth daily. Active busPIRone (Buspar) 10 MG tablet Take 1 tablet by mouth 2 times a day. Active tirzepatide (Mounjaro) 7.5 MG/0.5ML solution auto-injector solution pen-injector Inject 0.5 mL under the skin 1 time per week. Saturday Active Vibegron (Gemtesa) 75 MG tablet Take 75 mg by mouth daily. Active methocarbamol (Robaxin) 500 MG tablet Take 2 tablets by mouth every 8 hours. 5 10/01/20 25 Active senna-docusate (Shira-Colace) 8.6-50 MG tablet Take 1 tablet by mouth 2 times a day. 5 10/01/20 25 Active naloxone (Narcan) 4 mg/0.1 mL nasal spray 1. Give 1 spray in nostril for no/slow breathing or cannot wake after opioid use 2. Call 911 3. Repeat in other nostril if symptoms continue 1 each 5 Active oxyCODONE (Roxicodone) 5 MG immediate release tablet Take 1 tablet by mouth every 4 hours as needed for severe pain for up to 3 days. 18 tablet 5 09/04/20 25 Active Problems Problem Noted Date Diagnosed Date Osteoporosis 09/01/2025 Assessment & Plan (09/01/2025 6:36 AM EDT): Age related decline, continue to monitor, Chest pain 08/31/2025 Assessment & Plan (09/01/2025 1:09 PM EDT): 1 episode of chest pain and SOB on 08/31. Possible aspiration. CXR, EKG, Labs unremarkable. Speech eval performed without findings. Most likely GCS waxes and wanes. IV morphine provided with relief. 09/01 doing well today with no concerns Anxiety and depression 08/30/2025 Assessment & Plan (08/31/2025 1:41 PM EDT): Cont home buspar and bupropion Assessment & Plan (08/30/2025 1:50 PM EDT): Cont home buspar and bupropion Overactive bladder 08/30/2025 Assessment & Plan (08/31/2025 1:41 PM EDT): Pt om vibegron at home, prescribe mirabegron here Assessment & Plan (08/30/2025 1:50 PM EDT): Pt om vibegron at home, prescribe mirabegron here GERD (gastroesophageal reflux disease) Assessment & Plan (08/31/2025 1:41 PM EDT): Home: omeprazole Pantoprazole while inpatient Assessment & Plan (08/30/2025 1:50 PM EDT): Home: omeprazole Pantoprazole while inpatient Delirium 08/27/2025 Assessment & Plan (08/31/2025 1:45 PM EDT): Per family, baseline status 08/26: UA negative for UTI Neuropsych eval attempted; but unsuccessful, see their note. 08/31: Messaged neuropsych and they said they will not come back Most likely undiagnosed dementia Assessment & Plan (08/31/2025 1:41 PM EDT): Per family, baseline status 08/26: UA negative for UTI Neuropsych eval attempted; but unsuccessful, see their note. 08/31: Messaged neuropsych and they said they will not come back Assessment & Plan (08/30/2025 1:50 PM EDT): Per family, baseline status 08/26: UA negative for UTI Neuropsych eval pending for medical decision making capacity Assessment & Plan (08/29/2025 11:07 AM EDT): Per family, baseline status 08/26: UA negative for UTI Neuropsych eval ordered for medical decision making capacity Assessment & Plan (08/28/2025 1:35 PM EDT): Per family, baseline 08/26: UA negative for UTI Neuropsych eval ordered for medical decision making capacity Assessment & Plan (08/27/2025 2:31 PM EDT): Per family, baseline 08/26: UA negative for UTI Neuropsych eval ordered for medical decision making capacity Primary hypertension 08/25/2025 Assessment & Plan (08/31/2025 1:41 PM EDT): Resume home meds as appropriate Assessment & Plan (08/30/2025 1:50 PM EDT): Resume home meds as appropriate Assessment & Plan (08/29/2025 11:07 AM EDT): Resume home meds as appropriate Assessment & Plan (08/28/2025 1:35 PM EDT): Resume home meds as appropriate Assessment & Plan (08/27/2025 2:31 PM EDT): Resume home meds as appropriate Assessment & Plan (08/26/2025 9:05 AM EDT): Resume home meds as appropriate Assessment & Plan (08/25/2025 1:56 PM EDT): Resume home meds as appropriate Diabetes mellitus 08/25/2025 Assessment & Plan (08/31/2025 1:41 PM EDT): SSI inpatient Assessment & Plan (08/30/2025 1:50 PM EDT): SSI inpatient Assessment & Plan (08/29/2025 11:22 AM EDT): SSI inpatient Assessment & Plan (08/28/2025 1:35 PM EDT): Resume home meds Assessment & Plan (08/27/2025 2:31 PM EDT): Resume home meds Assessment & Plan (08/26/2025 9:05 AM EDT): Resume home meds Assessment & Plan (08/25/2025 1:56 PM EDT): Resume home meds CKD (chronic kidney disease) 08/25/2025 Assessment & Plan (08/31/2025 1:41 PM EDT): Avoid nephrotoxins, monitor renal function Assessment & Plan (08/30/2025 1:50 PM EDT): Avoid nephrotoxins, monitor renal function Assessment & Plan (08/29/2025 11:29 AM EDT): Avoid nephrotoxins, monitor renal function Assessment & Plan (08/28/2025 1:35 PM EDT): CTM Assessment & Plan (08/27/2025 2:31 PM EDT): CTM Assessment & Plan (08/26/2025 9:05 AM EDT): CTM Assessment & Plan (08/25/2025 1:56 PM EDT): CTM Chronic heart failure with m ildly reduced ejection fraction (HFmrEF, 41-49%) 08/25/2025 Assessment & Plan (08/31/2025 1:41 PM EDT): ECHO on 08/26: HFrEF at 42% Resume home medications as appropriate Assessment & Plan (08/30/2025 1:50 PM EDT): ECHO on 08/26: HFrEF at 42% Resume home medications as appropriate Assessment & Plan (08/29/2025 11:07 AM EDT): ECHO on 08/26: HFrEF at 42% Resume home medications as appropriate Assessment & Plan (08/28/2025 1:35 PM EDT): Resume home meds as appropriate Echo on 08/26: HFrEF at 42% Assessment & Plan (08/27/2025 2:31 PM EDT): Resume home meds as appropriate Echo on 08/26: HFrEF at 42% Assessment & Plan (08/26/2025 9:05 AM EDT): Resume home meds as appropriate Assessment & Plan (08/25/2025 1:56 PM EDT): Resume home meds as appropriate Fall 08/24/2025 Assessment & Plan (08/24/2025 2:19 AM EDT): Possible orthostatic fall Tertiary 08/24 Closed displaced fracture of surgical neck of ri ght humerus 08/24/2025 Assessment & Plan (08/31/2025 1:41 PM EDT): R humeral neck fx S/p reduction at OSH Ortho following, appreciate recs NWB RUE C/C non-op Assessment & Plan (08/30/2025 1:50 PM EDT): R humeral neck fx S/p reduction at OSH Ortho following, appreciate recs NWB RUE Pending operative plan after completion of neuro-psych eval Assessment & Plan (08/29/2025 11:07 AM EDT): R humeral neck fx S/p reduction at OSH Ortho following, appreciate recs MMPC NWB RUE F/u x-rays on 08/27, operative plans pending after discussion with attending on 08/29 Assessment & Plan (08/28/2025 5:05 PM EDT): R humeral neck fx S/p reduction at OSH Ortho following, appreciate recs MMPC NWB RUE F/u x-rays on 08/27, operative plans pending after discussion with attending on 08/29 Assessment & Plan (08/27/2025 2:31 PM EDT): R humeral neck fx S/p reduction at OSH Ortho following, appreciate recs [facility] NWB RUE F/u x-rays on 08/27, operative plans pending Assessment & Plan (08/26/2025 9:05 AM EDT): R humeral neck fx S/p reduction at [facility] Ortho following, [facility] on 08/28, operative plans pending Assessment & Plan (08/25/2025 1:51 PM EDT): R humeral neck fx S/p reduction at OSH Ortho following, appreciate recs [facility] NWB RUE, anticipate non-op Assessment & Plan (08/24/2025 2:19 AM EDT): R humeral neck fx S/p reduction at OSH Ortho following, appreciate recs [facility] NWB RUE Dizziness 08/24/2025 Assessment & Plan (08/31/2025 1:41 PM EDT): Questionable dizziness contributing to fall ECHO and Carotid U/S ordered d/t inability to obtain OSH records of previous exams Carotid US stable ECHO with HFrEF at 42%, known hx of heart failure Assessment & Plan (08/30/2025 1:50 PM EDT): Questionable dizziness contributing to fall ECHO and Carotid U/S ordered d/t inability to obtain OSH records of previous exams Carotid US stable ECHO with HFrEF at 42%, known hx of heart failure Assessment & Plan (08/29/2025 11:29 AM EDT): Questionable dizziness contributing to fall Patient recently s/p TTE and Carotid Duplex at OSH, work to obtain records ECHO and Carotid U/S ordered d/t inability to obtain OSH records Carotid US stable ECHO with HFrEF at 42%, known hx of heart failure Assessment & Plan (08/28/2025 1:35 PM EDT): Questionable dizziness contributing to fall Patient recently s/p TTE and Carotid Duplex at OSH, work to obtain records ECHO and carotid U/S ordered d/t inability to obtain OSH records Carotid US stable Echo results: HFrEF at 42%, known hx of heart failure Assessment & Plan (08/27/2025 2:31 PM EDT): Questionable dizziness contributing to fall Patient recently s/p TTE and Carotid Duplex at OSH, work to obtain records ECHO and carotid U/S ordered d/t inability to obtain OSH records Carotid US stable Echo results: HFrEF at 42%, known hx of heart failure Assessment & Plan (08/26/2025 9:05 AM EDT): Questionable dizziness contributing to fall Patient recently s/p TTE and Carotid Duplex at OSH, work to obtain records ECHO and carotid U/S ordered d/t inability to obtain OSH records, results pending Assessment & Plan (08/25/2025 1:51 PM EDT): Questionable dizziness contributing to fall Patient recently s/p TTE and Carotid Duplex at OSH, work to obtain records ECHO and carotid U/S ordered d/t inability to obtain OSH records, results pending Assessment & Plan (08/24/2025 2:19 AM EDT): Questionable dizziness contributing to fall Patient recently s/p TTE and Carotid Duplex at OSH, work to obtain records Tendinopathy 08/24/2025 Assessment & Plan (08/31/2025 1:41 PM EDT): Calcific tendinopathy Incidental finding Follow up with PCP for further surveillance Assessment & Plan (08/30/2025 1:50 PM EDT): Calcific tendinopathy Incidental finding Follow up with PCP for further surveillance Assessment & Plan (08/29/2025 11:22 AM EDT): Calcific tendinopathy Incidental finding Follow up with PCP for further surveillance Assessment & Plan (08/28/2025 1:35 PM EDT): Calcific tendinopathy Incidental finding Follow up with PCP for further surveillance Assessment & Plan (08/27/2025 2:31 PM EDT): Calcific tendinopathy Incidental finding Follow up with PCP for further surveillance Assessment & Plan (08/26/2025 9:05 AM EDT): Calcific tendinopathy Incidental finding Follow up with PCP for further surveillance Assessment & Plan (08/25/2025 1:51 PM EDT): Calcific tendinopathy Incidental finding Follow up with PCP for further surveillance Pelvic mass 07/15/2023 Assessment & Plan (08/28/2025 1:09 PM EDT): - 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 Resolved Problems Problem Noted Date Diagnosed Date Resolved Date Fall from standing, initial encounter 08/24/2025 08/31/2025 Assessment & Plan (08/30/2025 1:50 PM EDT): Possible orthostatic fall Admit to [facility] 6 Tertiary 08/24 Assessment & Plan (08/29/2025 11:07 AM EDT): Possible orthostatic fall Admit to [facility] 6 Tertiary 08/24 Assessment & Plan (08/28/2025 1:35 PM EDT): Possible orthostatic fall Admit to T 6 Tertiary 08/24 Assessment & Plan (08/27/2025 2:31 PM EDT): Possible orthostatic fall Admit to [facility] 6 Tertiary 08/24 Assessment & Plan (08/26/2025 9:05 AM EDT): Possible orthostatic fall Admit to T 6 Tertiary 08/24 Assessment & Plan (08/25/2025 1:51 PM EDT): Possible orthostatic fall Admit to T 6 Tertiary 08/24 Thickened endometrium 07/15/20232024 PMB (postmenopausal bleeding) 07/15/2023 08/28/2025 Encounters Date Type Department Care Team Description 08/31/2025 Travel 08/27/2025 Travel 08/26/2025 Travel 08/24/2025 Travel 08/23/2025 9:41 PM EDT - 09/01/2025 3:35 PM EDT Hospital Encounter [facility] In[facility] [address] [place] [address] Flaquito Lerma MD Davidson, MD Agus Packer, MD Shanna Leal Anthony R, MD Detelich, MD Sangeetha Jolly, MD Nacho Syed, MD Marlene Perez, initial encounter (Primary Dx); Fx humeral neck, right, closed, initial encounter; Delirium Discharge Disposition: Prison Facility 08/23/2025 Travel 08/23/2025 Orders Only External Location [address] [place] [address] Julianna Copeland, DO 08/23/2025 Orders Only External Location [address] [place] [address] Julianna Copeland, DO 08/23/2025 Orders Only External Location [address] [place] [id number] Julianna Copeland, DO 08/23/2025 Orders Only External Location [address] [place] [id number] Provider, External 08/23/2025 Orders Only External Location [address] [place] [address] Provider, External 08/23/2025 Orders Only External Location [address] [place] [address] Provider, External 08/23/2025 Orders Only External Location [address] [place] [address] Provider, External 08/23/2025 Orders Only External Location [address] [place] [address] Provider, External 08/23/2025 Orders Only External Location [address] [place] [id number] Provider, External 08/23/2025 Orders Only External Location [address] [place] [id number] Provider, External 08/23/2025 Orders Only External Location [address] [place] [address] Provider, External 08/23/2025 Orders Only External Location [address] [place] [address] Provider, External 08/23/2025 Orders Only External Location [address] [place] [address] Provider, External 08/23/2025 Orders Only External Location [address] [place] [address] Provider, External 08/23/2025 Orders Only External Location [address] [place] [address] Provider, External 08/23/2025 Orders Only External Location [address] [place] [address] Provider, External 08/23/2025 Orders Only External Location [address] [place] [address] Julianna Copeland, DO 08/23/2025 Orders Only External Location [address] [place] [address] Provider, External 08/23/2025 Orders Only External Location [address] [place] [address] Provider, External 08/23/2025 Orders Only External Location [address] [place] [address] Provider, External 08/23/2025 Orders Only External Location [address] [place] [address] Provider, External 08/23/2025 Orders Only External Location [address] [place] [address] Provider, External from Last 3 Months Social History Tobacco Use Types Packs/Day Years Used Date Smoking Tobacco: Never Passive Smoke Exposure: Past Smokeless Tobacco: Never Tobacco Cessation:Counseling Given: Not Answered Alcohol Use Standard Drinks/Week Comments Never 0 [...] money to buy more. Never true 08/24/20 Within the past 12 months, t he [...] time in the past 12 m [facility], were you homeless or living in a half-way (including now)? 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 0 08/08/2023 CAGE Questionnaire Score 0 023 PHQ-2A Answer Date Recorded Patient Health Questionnaire-2 Score 0 09/02/2023 Comments No Sex and Gender Information Value Date Recorded Sex Assigned at Not on file Legal Sex Female 8:30 PM EDT Gender Identity Not on file Sexual Orientation Not on file Last Filed Vital Signs Vital Sign Reading [...] Mass Index 25.75 08/26/2025 12:44 PM EDT Plan of Treatment Upcoming Encounters Date Type Department Care Team (Late st Contact Info) Description 10/06/2025 9:10 AM EST Office Visit [facility] [address] [place] [address] Ricki Clark MD [address] [place] [address] Health Maintenance Due Date Last Done Comments [facility]-Bone Density Scan 1959 [facility]-Hepatitis C Screening 1959 [facility]-Medicare Annual Wellness (AWV) 1959 [facility]-/Child/Adol SDOH Screenings 1959 Diabetes: Dental Exam 1969 [facility]-DTaP,Tdap,and Td Vaccine s (1 - Tdap) 1978 [facility]-Pneumococcal Vaccine: 50 + Years (1 of 2 - PCV) 1978 CT Colonography 02/26/2004 Colonoscopy 02/26/2004 FIT-DNA 02/26/2004 FIT 02/26/2004 FOBT 02/26/2004 Sigmoidoscopy 02/26/2004 [facility]-Colorectal Cancer Screening 02/26/2004 [facility]-Breast Cancer Screening 2009 [facility]-Zoster Vaccines (1 of 2) 2009 [facility]-RSV Vaccine: 60+ Years o r (1 - Risk 60-74 years 1-dose series) 2019 [facility]-Depression Screening 09/02/2024 09/02/2023 [id number] Vaccine (1 - season) 2025 [facility]-Influenza Vaccine (#1) 2025 [facility]-Diabetes: Hemoglobin A1C 02/21/2026, 07/15/2023 [facility]- SDOH Screenings 02/22/2026 [facility]-Adult SDOH Screenings 02/22/2026 08/24/2025 [facility]-Cervical Cancer Screening Discontinued [facility]-HPV/Cotest Discontinued 07/15/2023 [facility]-Pap Smear Discontinued 07/15/2023 [facility]-Obesity Intervention Completed 08/23/2025 HPV Vaccines Aged Out No longer eligi ble based on patient's age to complete this topic [facility]-HIB Vaccines Aged Out No longer e ligible based on patient's age to complete this topic [facility]-Hepatitis A Vaccines Aged Out No longer eligible based on patient's age to complete this topic [facility]-IPV Vaccines Aged Out No longer e ligible based on patient's age to complete this topic [facility]-Rotavirus Vaccines Aged Out No lo nger eligible based on patient's age to complete this topic Procedures Procedure Name Priority Date/Time Associated Diagnosis [...] 2 HOUR STAT 08/31/2025 9:43 AM EDT COMPREHENSIVE METABOLIC PANEL, PLASMA STAT 08/31/2025 9:43 AM EDT CBC WITH AUTO DIFFERENTIAL STAT 08/31/2025 9:43 AM EDT POCT GLUCOSE [...] UNSOLICITED RESULTS Routine 08/24/2025 12:10 PM EDT HEMOGLOBIN A1C Add-On 08/24/2025 3:59 AM EDT PHOSPHORUS, PLASMA Routine 08/24/2025 3: 59 AM EDT MAGNESIUM, PLASMA Routine 08/24/2025 3:5 9 AM EDT BASIC METABOLIC PANEL, PLASMA Routine 08/24/2025 3:59 AM EDT CBC W/O DIFFERENTIAL Routine 08/24/2025 3:[address] SHOULDER [...] RIGHT STAT 08/23/2025 11: 28 PM EDT XR OUTSIDE IMAGES 08/23/2025 7:[address] THORACIC OUTSIDE IMAGES 08/23/2025 5:[address] MSK OUTSIDE IMAGES 08/23/2025 5:[address] NEURO OUTSIDE IMAGES 08/23/2025 5:[address] OUTSIDE IMAGES 08/23/2025 5:4 7 PM EDT XR MSK OUTSIDE IMAGES 08/23/2025 4:15 PM EDT XR MSK OUTSIDE IMAGES 08/23/2025 4:15 PM EDT XR MSK OUTSIDE IMAGES 08/23/2025 4:15 PM EDT XR OUTSIDE IMAGES 08/23/2025 4:1 5 PM EDT XR MSK OUTSIDE IMAGES 08/23/2025 4:15 PM EDT XR MSK OUTSIDE IMAGES 08/23/2025 4:15 PM EDT XR MSK OUTSIDE IMAGES 08/23/2025 4:15 PM EDT XR MSK OUTSIDE IMAGES 08/23/2025 4:15 PM EDT XR OUTSIDE IMAGES 08/23/2025 4:1 5 PM EDT XR MSK OUTSIDE IMAGES 08/23/2025 4:15 PM EDT XR MSK OUTSIDE IMAGES 08/23/2025 4:15 PM EDT XR MSK OUTSIDE IMAGES 08/23/2025 4:15 PM EDT XR OUTSIDE IMAGES 08/23/2025 4:[address] NEURO OUTSIDE IMAGES 08/23/2025 4:[address] NEURO OUTSIDE IMAGES 08/23/2025 4:[address] NEURO OUTSIDE IMAGES 08/23/2025 4:[address] NEURO OUTSIDE IMAGES 08/23/2025 4:13 PM EDT PAP TEST - CYTOLOGY Routine 07/15/2023 4 :34 PM EDT Pelvic mass from Last 3 Months or Most Recently Relevant to Health Maintenance Results * (ABNORMAL) POCT glucose meter (09/01/2025 12:05 PM EDT) Only the most recent of35 resultswithin the time period is included. [facility] POCT Glucose 224(H) 74 - 99 mg/dL 09/01/2025 12:06 PM EDT [facility] Comment:Accuracy of [...] Comment 09/01/2025 12:06 PM EDT [facility] Security Controls Assessor ID Nathalia Senior 12:06 PM EDT HEALTHCARE LAB Device ID [id number] 09/01/2025 12:06 PM EDT [facility]ALTH[facility]ARE [facility] Specimen Type POC Capillary 09/01/2025 12:06 PM EDT [facility] Blood Capillary blood specimen / Unknown 09/01/2025 12:05 PM EDT 09/01/2025 12:06 PM EDT us Juan Otero MD LAB POINT OF CARE TEST DOCKED DEVICE UNSOLICITED RESULTS Final Result [facility] [address] [place] [address] * Troponin T, High Sensitivity, 2 Hour, Plasma (08/31/2025 11:58 AM EDT) [facility] Troponin T, High Sensitivity, 2 Hour 10 <14 ng/L 08/31/2025 12:32 PM EDT [facility] Blood Venous blood specimen / Unknown Venipuncture / Unknown 08/31/2025 11:58 AM EDT 08/31/2025 12:04 PM EDT us Rodney Dwyer PLANT ENGINEER LAB BLOOD ORDERABLES Final Result [facility] [address] [place] [address] * XR Chest 1 View (08/31/2025 10:22 [...] Deyvi Martinez MD on 08/31/2025 11:12 AM Rodney Dwyer PLANT ENGINEER IMG XR PROCEDURES Final Re sult * ECG Adult (08/31/2025 9:44 AM EDT) Only the most recent of2 resultswithin the time period is included. EKG DIAGNOSIS CLASS Abnormal MUSE ECG Ventricular Rate 94 BPM MUSE ECG Atrial Rate 94 BPM MUSE ECG ME Interval 136 ms MUSE ECG QRSD Interval 84 ms MUSE ECG QT Interval 380 ms MUSE ECG QTC Interval 475 ms MUSE ECG P [place] 10 degrees MUSE ECG R [place] 13 degrees MUSE ECG T Wave [place] 144 degrees MUSE ECG Diagnosis Poor data [...] EDT 08/31/2025 2:11 PM EDT Rodney Dwyer PLANT ENGINEER ECG ORDERABLES Final Resu lt MUSE ECG * Troponin T, High Sensitivity, 0 Hour Plasma, Reflex to 2 Hour (08/31/2025 9:43 AM EDT) Troponin T, High Sensitivity, 0 Hour 12 <14 ng/L 08/31/2025 11:45 AM EDT [facility] Blood Venous blood specimen / Unknown Venipuncture / Unknown 08/31/2025 9:43 AM EDT 08/31/2025 11:04 AM EDT us Rodney Dwyer [employer] ENGINE[employer] LAB BLOOD ORDERABLES Final Result [facility] [address] [place] [address] * (ABNORMAL) CBC and differential (08/31/2025 9:43 AM EDT) WBC Count 8.37 3.70 - 10.30 10*3/uL LAB HEMATOLOGY METHOD 08/31/2025 11:27 AM EDT [facility] RBC Count 3.52(L) 3.90 - 5.20 10*6/uL LAB HEMATOLOGY METHOD 08/31/2025 11:27 AM EDT [facility] HGB 10.9(L) 11.2 - 15.7 g/dL LAB HEMATOLOGY METHOD 08/31/2025 11:27 AM EDT [facility] HCT 33.0(L) 34.0 - 45.0 % LAB HEMATOLOGY METHOD 08/31/2025 11:27 AM EDT [facility] Platelet Count 393(H) 155 - 369 10*3/uL LAB HEMATOLOGY METHOD 08/31/2025 11:27 AM EDT [facility] MCV 94 79 - 98 fL LAB HEMATOLOGY METHOD 08/31/2025 11:27 AM EDT [facility] MCH 31.0 26.0 - 32.0 pg LAB HEMATOLOGY METHOD 08/31/2025 11:27 AM EDT [facility] MCHC 33.0 30.7 - 35.5 g/dL LAB HEMATOLOGY METHOD 08/31/2025 11:27 AM EDT [facility] RDW 12.4 11.5 - 14.5 % LAB HEMATOLOGY METHOD 08/31/2025 11:27 AM EDT [facility] MPV 9.1 8.8 - 12.5 fL LAB HEMATOLOGY METHOD 08/31/2025 11:27 AM EDT [facility] nRBC 0.0 <=0.0 per 100 WBCs LAB HEMATOLOGY METHOD 08/31/2025 11:27 AM EDT [facility] Differential Type Automated LAB HEMATOLOGY METHOD 08/31/2025 11:27 AM EDT [facility] Neutrophils % 68 % LAB HEMATOLOGY METHOD 08/31/2025 11:27 AM EDT [facility] Lymphocytes % 19 % LAB HEMATOLOGY METHOD 08/31/2025 11:27 AM EDT [facility] Monocytes % 11 % LAB HEMATOLOGY METHOD 08/31/2025 11:27 AM EDT [facility] Eosinophils % 1 % LAB HEMATOLOGY METHOD 08/31/2025 11:27 AM EDT [facility] Basophils % 0 % LAB HEMATOLOGY METHOD 08/31/2025 11:27 AM EDT [facility] Immature Granulocytes % 1 % LAB HEMATOLOGY METHOD 08/31/2025 11:27 AM EDT [facility] Neutrophils Absolute 5.77 1.60 - 6.10 10*3/uL LAB HEMATOLOGY METHOD 08/31/2025 11:27 AM EDT [facility] Lymphocytes Absolute 1.56 1.20 - 3.90 10*3/uL LAB HEMATOLOGY METHOD 08/31/2025 11:27 AM EDT [facility] Monocytes Absolute 0.89 0.30 - 0.90 10*3/uL LAB HEMATOLOGY METHOD 08/31/2025 11:27 AM EDT [facility] Eosinophils Absolute 0.08 0.00 - 0.50 10*3/uL LAB HEMATOLOGY METHOD 08/31/2025 11:27 AM EDT [facility] Basophils Absolute 0.02 0.00 - 0.10 10*3/uL LAB HEMATOLOGY METHOD 08/31/2025 11:27 AM EDT [facility] Immature Granulocytes Absolute 0.05 0.00 - 0.06 10*3/uL LAB HEMATOLOGY METHOD 08/31/2025 11:27 AM EDT [facility] Blood Venous blood specimen / Unknown Venipuncture / Unknown 08/31/2025 9:43 AM EDT 08/31/2025 11:17 AM EDT [facility] - 08/31/2025 11:27 AM EDT Therapeutic decision making should be based on absolute values, rather than percentages. us Rodney Dwyer PLANT ENGINEER LAB BLOOD ORDERABLES Final Result [facility] [address] [id number] * (ABNORMAL) Comprehensive metabolic panel (08/31/2025 9:43 AM EDT) Glucose, Plasma 137(H) 74 - 99 mg/dL 08/31/2025 11:45 AM EDT [facility] BUN, Plasma 9 8 - 23 mg/dL 08/31/2025 11:45 AM EDT [facility] Creatinine, Plasma 0.38(L) 0.60 - 1.10 mg/dL 08/31/2025 11:45 AM EDT [facility] BUN/Creatinine Ratio 24 08/31/2025 11:45 AM EDT [facility] Sodium, Plasma 137 136 - 145 mmol/L 08/31/2025 11:45 AM EDT [facility] Potassium, Plasma 3.5(L) 3.6 - 4.9 mmol/L 08/31/2025 11:45 AM EDT [facility] Chloride, Plasma 100 97 - 107 mmol/L 08/31/2025 11:45 AM EDT [facility] CO2, Plasma 20(L) 22 - 29 mmol/L 08/31/2025 11:45 AM EDT [facility] Anion Gap 17(H) 6 - 16 mmol/L 08/31/2025 11:45 AM EDT [facility] Total Calcium, Plasma 8.9 8.9 - 10.2 mg/dL 08/31/2025 11:45 AM EDT [facility] Total Protein 6.7 6.3 - 7.9 g/dL 08/31/2025 11:45 AM EDT [facility] Albumin, Plasma 3.4(L) 3.5 - 5.2 g/dL 08/31/2025 11:45 AM EDT [facility] AST, Plasma 18 10 - 35 U/L 08/31/2025 11:45 AM EDT [facility] Comment:Hemolyzed, result ma y be falsely increased. ALT, Plasma 20 10 - 35 U/L 08/31/2025 11:45 AM EDT [facility] Alkaline Phosphatase, Plasma 60 46 - 142 U/L 08/31/2025 11:45 AM EDT [facility] Total Bilirubin, Plasma 0.7 0.2 - 1.1 mg/dL 08/31/2025 11:45 AM EDT [facility] eGFRcr 110.7 mL/min/1.7 3m*2 08/31/2025 11:45 AM EDT [facility] Comment:Reported eGFRcr in m L/min/1.73m2 is based the CKD-EPI 2020 equation that does not use a race coefficient. Blood Venous blood specimen / Unknown Venipuncture / Unknown 08/31/2025 9:43 AM EDT 08/31/2025 11:04 AM EDT Rodney Dwyer PLANT ENGINEER LAB BLOOD ORDERABLES Final Result [facility] [address] [place] [address] * XR Shoulder Right 1 View (08/27/2025 [...] XR PROCEDURES Final Re sult * (ABNORMAL) Urinalysis with reflex microscopic (Culture NOT Included) (08/26/2025 3:24 PM EDT) Color, Urine Yellow LAB URINALYSIS - AUTOMATED METHOD 08/26/2025 3:54 PM EDT [facility] Clarity, Urine Clear LAB URINALYSIS - AUTOMATED METHOD 08/26/2025 3:54 PM EDT [facility] Spec [place], Urine >1.030(H) 1.005 - 1.030 LAB URINALYSIS - AUTOMATED METHOD 08/26/2025 3:54 PM EDT [facility] pH, Urine 6.5 5.0 - 8.0 LAB URINALYSIS - AUTOMATED METHOD 08/26/2025 3:54 PM EDT [facility] Protein, Urine 30(A) Negative mg/dL LAB URINALYSIS - AUTOMATED METHOD 08/26/2025 3:54 PM EDT [facility] Glucose, Urine >=1000(A) Negative mg/dL LAB URINALYSIS - AUTOMATED METHOD 08/26/2025 3:54 PM EDT [facility] Ketones, Urine 40(A) Negative mg/dL LAB URINALYSIS - AUTOMATED METHOD 08/26/2025 3:54 PM EDT [facility] Blood, Urine Negative Negative LAB URINALYSIS - AUTOMATED METHOD 08/26/2025 3:54 PM EDT [facility] Bilirubin, Urine Negative Negative LAB URINALYSIS - AUTOMATED METHOD 08/26/2025 3:54 PM EDT [facility] Urobilinogen, Urine 0.2 0.2 to 1.0 mg/dL LAB URINALYSIS - AUTOMATED METHOD 08/26/2025 3:54 PM EDT [facility] Leukocytes, Urine Negative Negative LAB URINALYSIS - AUTOMATED METHOD 08/26/2025 3:54 PM EDT [facility] Nitrite, Urine Negative Negative LAB URINALYSIS - AUTOMATED METHOD 08/26/2025 3:54 PM EDT [facility] Urine Urine specimen obtained by clean catch procedure / Unknown Non-blood Collection / Unknown 08/26/2025 3:24 PM EDT 08/26/2025 3:44 PM EDT us Jaida RIBEIRO LAB URINE ORDERABLES Ivone ivy Result [facility] [address] [place] [address] * ECHO, ADULT TRANSTHORACIC COMPLETE W/ CONTRAST [...] is no recent study available for direct [id number] comparison. Left Ventricle Based on the 2D [...] is no recent study available for direct wvsp-vl-[id number] comparison. us Zander Goldsmith MD CV ECHO PROCEDURES Final Result * VAS US Carotid Duplex Bilateral (08/24/2025 [...] America Ellis MD on 08/25/2025 3:03 PM Zander Goldsmith MD CV VASCULAR PROCEDURES Final Re sult * (ABNORMAL) CBC W/O Differential (08/24/2025 3:59 AM EDT) WBC Count 13.28(H) 3.70 - 10.30 10*3/uL LAB HEMATOLOGY METHOD 08/24/2025 4:18 AM EDT [facility] RBC Count 3.56(L) 3.90 - 5.20 10*6/uL LAB HEMATOLOGY METHOD 08/24/2025 4:18 AM EDT [facility] HGB 11.0(L) 11.2 - 15.7 g/dL LAB HEMATOLOGY METHOD 08/24/2025 4:18 AM EDT [facility] HCT 33.3(L) 34.0 - 45.0 % LAB HEMATOLOGY METHOD 08/24/2025 4:18 AM EDT [facility] Platelet Count 225 155 - 369 10*3/uL LAB HEMATOLOGY METHOD 08/24/2025 4:18 AM EDT [facility] MCV 94 79 - 98 fL LAB HEMATOLOGY METHOD 08/24/2025 4:18 AM EDT [facility] MCH 30.9 26.0 - 32.0 pg LAB HEMATOLOGY METHOD 08/24/2025 4:18 AM EDT [facility] MCHC 33.0 30.7 - 35.5 g/dL LAB HEMATOLOGY METHOD 08/24/2025 4:18 AM EDT [facility] RDW 12.5 11.5 - 14.5 % LAB HEMATOLOGY METHOD 08/24/2025 4:18 AM EDT [facility] MPV 9.3 8.8 - 12.5 fL LAB HEMATOLOGY METHOD 08/24/2025 4:18 AM EDT [facility] nRBC 0.0 <=0.0 per 100 WBCs LAB HEMATOLOGY METHOD 08/24/2025 4:18 AM EDT [facility] Blood Venous blood specimen / Unknown Venipuncture / Unknown 08/24/2025 3:59 AM EDT 08/24/2025 4:14 AM EDT us Kwesi Yang MD LAB BLOOD ORDERABLES Final R esult Performing Organization Address City/[facility]/ZIP Co de Phone Number [facility] [address] [place] [address] * Phosphorus (08/24/2025 3:59 AM EDT) Phosphorus, Plasma 4.1 2.5 - 4.5 mg/dL 08/24/2025 5:01 AM EDT [facility] Blood Venous blood specimen / Unknown Venipuncture / Unknown 08/24/2025 3:59 AM EDT 08/24/2025 4:22 AM EDT us Kwesi Yang MD LAB BLOOD ORDERABLES Final R esult [facility] [address] [place] [address] * Magnesium, Plasma (08/24/2025 3:59 AM EDT) Magnesium, Plasma 2.2 1.9 - 2.4 mg/dL 08/24/2025 5:01 AM EDT [facility] Blood Venous blood specimen / Unknown Venipuncture / Unknown 08/24/2025 3:59 AM EDT 08/24/2025 4:22 AM EDT us Kwesi Yang MD LAB BLOOD ORDERABLES Final R esult Performing Organization Address City/[facility]/ZIP Co de Phone Number [facility] [address] [place] [address] * (ABNORMAL) Hemoglobin A1c (08/24/2025 3:59 AM EDT) Hemoglobin A1c 6.0(H) <5.7 % 08/24/2025 5:13 PM EDT [facility] Blood Venous blood specimen / Unknown Venipuncture / Unknown 08/24/2025 3:59 AM EDT 08/24/2025 4:14 AM EDT Narrative [facility] - 08/24/2025 5:13 PM EDT HA1C Interpretive Data: Diagnosis of Diabetes: Diabetic > or = 6.5% Pre-diabetic 5.7 to 6.4% Non-diabetic < or = 5.6% Glycemic Targets for Type I and Type II Diabetics: Non- Adults <7.0% Adults <6.0% Children and Adolescents <7.5% Source: [place] [employer]. Standards of medical care in diabetes,2017. Diabetes Care.2017:40 (suppl 1):S1-S135. us Brigid RIBEIRO LAB BLOOD ORDERABLES Final Result Performing Organization Address City/[facility]/ZIP Co de Phone Number [facility] [address] [place] [address] * (ABNORMAL) Basic metabolic panel (08/24/2025 3:59 AM EDT) Glucose, Plasma 167(H) 74 - 99 mg/dL 08/24/2025 5:01 AM EDT [facility] BUN, Plasma 29(H) 8 - 23 mg/dL 08/24/2025 5:01 AM EDT [facility] Creatinine, Plasma 0.86 0.60 - 1.10 mg/dL 08/24/2025 5:01 AM EDT [facility] BUN/Creatinine Ratio 34 08/24/2025 5:01 AM EDT [facility] Sodium, Plasma 141 136 - 145 mmol/L 08/24/2025 5:01 AM EDT [facility] Potassium, Plasma 4.2 3.6 - 4.9 mmol/L 08/24/2025 5:01 AM EDT [facility] Chloride, Plasma 107 97 - 107 mmol/L 08/24/2025 5:01 AM EDT [facility] CO2, Plasma 19(L) 22 - 29 mmol/L 08/24/2025 5:01 AM EDT [facility] Anion Gap 15 6 - 16 mmol/L 08/24/2025 5:01 AM EDT [facility] Total Calcium, Plasma 9.0 8.9 - 10.2 mg/dL 08/24/2025 5:01 AM EDT [facility] eGFRcr 74.6 mL/min/1.7 3m*2 08/24/2025 5:01 AM EDT [facility] Comment:Reported eGFRcr in m L/min/1.73m2 is based the CKD-EPI 2020 equation that does not use a race coefficient. Blood Venous blood specimen / Unknown Venipuncture / Unknown 08/24/2025 3:59 AM EDT 08/24/2025 4:22 AM EDT us Kwesi Yang MD LAB BLOOD ORDERABLES Final R esult [facility] [address] [place] [address] * CT Shoulder Right wo IV Contrast [...] lesser humeral tuberosity, humeral head and neck. Onbw-ta-eiepzuyj osteoarthritis the glenohumeral joint. Moderate osteoarthritis of [...] lesser humeral tuberosity, humeral head and neck. Xhnh-ca-lpwrhjui osteoarthritis the glenohumeral joint. Moderateosteoarthritis of the [...] Right 2+ Views (08/24/2025 1:19 AM EDT) Only the most recent of2 resultswithin the time period is included. Anatomical Region Laterality Modality Upper Extremities, Shoulder [...] IMG XR PROCEDURES Final Resu lt * XR Elbows Right 3+ View (08/23/2025 [...] IMG XR PROCEDURES Final Result * XR OUTSIDE IMAGES (08/23/2025 7:31 PM EDT) Only the most recent of4 resultswithin the time period is included. Anatomical Region Laterality Modality Radiographic Clementine ging 08/23/2025 7:31 PM EDT us Julianna Christine Copeland DO IMG XR PROCEDURES Edited Result - Final * CT THORACIC OUTSIDE IMAGES (08/23/2025 5:52 PM EDT) Anatomical Region Laterality Modality Computed Tomogra phy 08/23/2025 5:52 PM EDT us External Provider IMG CT PROCEDURES Edited Resul t - Final * CT MSK OUTSIDE IMAGES (08/23/2025 5:52 PM EDT) Anatomical Region Laterality Modality Computed Tomogra phy 08/23/2025 5:52 PM EDT us External Provider IMG CT PROCEDURES Edited Resul t - Final * CT NEURO OUTSIDE IMAGES (08/23/2025 5:49 PM EDT) Only the most recent of5 resultswithin the time period is included. Anatomical Region Laterality Modality Computed Tomogra phy 08/23/2025 5:49 PM EDT us Julianna S Min DO IMG CT PROCEDURES Edited Result - Final * CT OUTSIDE IMAGES (08/23/2025 5:47 PM EDT) Anatomical Region Laterality Modality Computed Tomogra phy 08/23/2025 5:47 PM EDT us Julianna Copeland DO IMG CT PROCEDURES Edited Result - Final * XR MSK OUTSIDE IMAGES (08/23/2025 4:15 PM EDT) Only the most recent of10 resultswithin the time period is included. Anatomical Region Laterality Modality Radiographic Clementine ging 08/23/2025 4:15 PM EDT us External Provider IMG XR PROCEDURES Edited Resul t - Final * (ABNORMAL) Pap Test (07/15/2023 4:34 PM EDT) Case Report Cytology Case: [id number] Authorizing Provider: Marlen Pop, Collected: 07/15/2023 1634 Ordering Location: [facility] Gynecology Received: 07/16/2023 1034 First Screen: Naomi Rosales Pathologist: Joann Martinez MD Specimen: ThinPrep Pap Test, Liquid-Based Cervical/Vagin al 07/23/2023 11:38 AM EDT [facility] Interpretation ATYPICAL SQUAMOUS CELLS OF UNDETERMINED SIGNIFICANCE (ASCUS)(A) 07/23/2023 11:38 AM EDT [facility] at 1138 EDT Other Findings Reactive endocervical gland cells. Inflammation and repair. 07/23/2023 11:38 AM EDT [facility] Specimen Adequacy Satisfactory for evaluation; endocervical/t ransformation zone component present. Slide imaged by the ThinPrep Imaging system and selected 22 vasquez reviewed then full manual screening. 07/23/2023 11:38 AM EDT [facility] Cervical cytology is a screening test primarily for squamous cancers and precursors and has associated false negative and positive results. New technologies such as liquid based sampling may decrease but will not eliminate all false negative results. Regular screening and follow-up of unexplained clinical signs and symptoms are recommended to minimize false negative results. Please see the ASCCP website (www.asccp.org )for followup recommendation s. If HPV testing was requested, correlation with the results is suggested (please call Microbiology at [phone] for results). 07/23/2023 11:38 AM EDT [facility] Menstrual Status Post-Menopausa l 07/23/2023 11:38 AM EDT [facility] Contraceptive History Not Applicable 07/23/2023 11:38 AM EDT [facility] Screening Type Routine Screen 2022 11:38 AM EDT [facility] High Risk? No 07/23/2023 11:38 AM EDT [facility] HPV Testing Requested? Request HPV Testing Regardless of Pap Test Findings 07/23/2023 11:38 AM EDT [facility] Previous Cancer History No 07/23/2023 11:38 AM EDT [facility] Intradepartmental Consultation with Agreement 07/23/2023 11:38 AM EDT [facility] Clinical Information R19.00 - Pelvic mass [ICD-10-CM] 07/23/2023 11:38 AM EDT [facility] Swab Vaginal and cervical cytologic material / Unknown Non-blood Collection / Unknown 07/15/2023 4:34 PM EDT 07/16/2023 10:34 AM EDT Marlen Loredo MD LAB CYTOLOGY ORDERABL ES Final Result [facility] [address] [place] [address] from Last 3 Months or Most Recently Relevant to Health Maintenance Insurance MEDICARE Advance Directives * Full Code (Latest Code Status on File) Date Activated Date Inactivated Comments 08/24/2025 1:56 AM 09/01/2025 5:40 PM Question Answer Comments I have reviewed the capacity from the link above and, if needed, have updated to appropriate status: Yes * Full Code Date Activated Date Inactivated Comments 08/08/2023 11:35 AM 08/10/2023 4:07 PM Question Answer Comments Patient has decision-making capacity? Yes Care Teams Elevated Motorman Relationship Specialty Start Date End Date Brad Hassan MD [address] [place] [address] [place] [address] PCP - General Internal Medicine 08/08/23 Greta Simpson DO [facility] [id number] Obstetrics and Gynecology 07/03/23
--- OUTSIDE RECORDS SUMMARY | 2025-09-28 11:36 | XMS_ITS | Encounter Summary ---
Author Organization Healthcare Address [address] [place] [address] Care Team Providers Care General Engineer Name Role Phone Greta Simpson DO Unavailable [phone] Brad Hassan MD Primary Care Provider [phone] Encounter Details Date Type Department Care Team (Late st Contact Info) Description 08/23/2025 Orders Only External Location [address] [place] [id number] Provider, External Social History Tobacco Use Types [...] any time in the past 12 m [facility], were you homeless or living in a half-way (including now)? No 08/24/2025 [facility] Utilities Answer Date Recorded In the past 12 months has th e [employer], gas, oil, or water company threatened to [...] drink first t fabian in the morning (EYE-RACK PULLER) to steady your nerves or to get [...] Description 10/06/2025 9:10 AM EST Office Visit [facility] Orthopaedic Surgery & Sports Medicine [address] [place] [address] Ricki Clark MD [address] [place] [address] documented as of this encounter [...] documented as of this encounter Care Teams General Engineer Relationship Specialty Start Date End Date Brad Hassan MD [address] [place] [address] [place] [address] PCP - General Internal Medicine 08/08/23 Greta Simpson DO [place] [address] [id number] Obstetrics and Gynecology 07/03/23 documented as of this encounter
--- OUTSIDE RECORDS SUMMARY | 2025-09-28 11:36 | XMS_ITS | Encounter Summary ---
Author Organization Healthcare Address [address] [place] [address] Care Team Providers Care Mirror Inspector Name Role Phone Greta Simpson DO Unavailable [phone] Brad Hassan MD Primary Care Provider [phone] Encounter Details Date Type Department Care Team (Late st Contact Info) Description 08/23/2025 Orders Only External Location [address] [place] [phone] Provider, External Social History Tobacco Use Types [...] any time in the past 12 m [facility], were you homeless or living in a fpc (including now)? No 08/24/2025 [facility] Utilities Answer Date Recorded In the past 12 months has th e [employer], gas, oil, or water company threatened to [...] drink first t fabian in the morning (EYE-DIETETIC AIDE) to steady your nerves or to get [...] Description 10/06/2025 9:10 AM EST Office Visit [facility] Orthopaedic Surgery & Sports Medicine [address], [address] [place] [address] Ricki Clark MD [address] [place] [address] documented as of this encounter [...] documented as of this encounter Care Teams Mirror Inspector Relationship Specialty Start Date End Date Brad Hassan MD [address] [place] [address] PCP - General Internal Medicine 08/08/23 Greta Simpson DO [place] [address] [id number] Obstetrics and Gynecology 07/03/23 documented as of this encounter
--- OUTSIDE RECORDS SUMMARY | 2025-09-28 11:36 | XMS_ITS | Encounter Summary ---
Author Organization Healthcare Address [address] [place] [address] Care Team Providers Care Wood Preserving Plant Laborer Name Role Phone Greta Simpson DO Unavailable [phone] Brad Hassan MD Primary Care Provider [phone] Encounter Details Date Type Department Care Team (Late st Contact Info) Description 08/23/2025 Orders Only External Location [address] [place] [phone] Provider, External Social History Tobacco Use Types [...] any time in the past 12 m [facility], were you homeless or living in a snf (including now)? No 08/24/2025 [facility] Utilities Answer Date Recorded In the past 12 months has th e [employer], gas, oil, or water company threatened to [...] drink first t fabian in the morning (EYE-PROMOTIONS EXECUTIVE PRODUCER) to steady your nerves or to get [...] Description 10/06/2025 9:10 AM EST Office Visit [facility] Orthopaedic Surgery & Sports Medicine [address] [place] [address] Ricki Clark MD [address] [place] [address] documented as of this encounter [...] documented as of this encounter Care Teams Wood Preserving Plant Laborer Relationship Specialty Start Date End Date Brad Hassan MD [address] [place] [address] PCP - General Internal Medicine 08/08/23 Greta Simpson DO [place] [address] [id number] Obstetrics and Gynecology 07/03/23 documented as of this encounter
--- OUTSIDE RECORDS SUMMARY | 2025-09-28 11:36 | XMS_ITS | Encounter Summary ---
Author Organization Healthcare Address [address] [place] [address] Care Team Providers Care Information Technology Assistant Name Role Phone Greta Simpson DO Unavailable [phone] Brad Hassan MD Primary Care Provider [phone] Encounter Details Date Type Department Care Team (Late st Contact Info) Description 08/23/2025 Orders Only External Location [address] [place] [address] Julianna Copeland, DO [address] [place] [address] Social History Tobacco Use Types [...] any time in the past 12 m [facility], were you homeless or living in a prison (including now)? No 08/24/2025 [facility] Utilities Answer Date Recorded In the [...] drink first t fabian in the morning (EYE-STEEL FLOOR PAN PLACING SUPERVISOR) to steady your nerves or to [...] Month) No 08/27/2025 8:00 AM EDT Vivian Kelelr , RN 6. Suicidal Behavior (Lifetime) No 8:00 AM EDT Vivian Keller, RN documented as of this encounter Plan of Treatment Upcoming Encounters Date Type Department Care Team (Late st Contact Info) Description 10/06/2025 9:10 AM EST Office Visit [facility] Orthopaedic Surgery & Sports Medicine [address], [address] [place] [address] Ricki Clark MD [address] [place] [address] documented as of this encounter Procedures Procedure Name Priority Date/Time Associated Diagnosis Comments CT OUTSIDE IMAGES 08/23/2025 5:47 PM EDT documented in this encounter Results * CT OUTSIDE IMAGES (08/23/2025 5:47 PM EDT) Anatomical Region Laterality Modality Computed Tomogra phy 08/23/2025 5:47 PM EDT Julianna Copeland DO IMG CT [...] documented as of this encounter Care Teams Information Technology Assistant Relationship Specialty Start Date End Date Brad Hassan MD [address] [place] [address] [place] [address] PCP - General Internal Medicine 08/08/23 Greta Smipson DO [facility] [address] Obstetrics and Gynecology 07/03/23 documented as of this encounter
--- OUTSIDE RECORDS SUMMARY | 2025-09-28 11:37 | XMS_ITS | Encounter Summary ---
Author Organization Healthcare Address [address] [place] [address] Care Team Providers Care President Educational Institution Name Role Phone Greta Simpson DO Unavailable [phone] Brad Hassan MD Primary Care Provider [phone] Encounter Details Date Type Department Care Team (Late st Contact Info) Description 08/23/2025 Orders Only External Location [address] [place] [id number] Provider, External Social History Tobacco Use Types [...] time in the past 12 m [facility], were you homeless or living in a alf (including now)? No 08/24/2025 [facility] Utilities Answer Date Recorded In the past 12 months has th e [employer], gas, oil, or water company threatened to [...] drink first t fabian in the morning (EYE-OCEAN BIOLOGIST) to steady your nerves or to get [...] Description 10/06/2025 9:10 AM EST Office Visit [facility] Orthopaedic Surgery & Sports Medicine [address] [place] [address] Ricki Clark MD [address] [place] [address] documented as of this encounter [...] documented as of this encounter Care Teams President Educational Institution Relationship Specialty Start Date End Date Brad Hassan MD [address] [place] [address] [place] [address] PCP - General Internal Medicine 08/08/23 Greta Simpson DO [place] [address] [address] Obstetrics and Gynecology 07/03/23 documented as of this encounter
--- OUTSIDE RECORDS SUMMARY | 2025-09-28 11:37 | XMS_ITS | Encounter Summary ---
Author Organization Healthcare Address [address] [place] [address] Care Team Providers Care Hardware Designer Name Role Phone Greta Simpson DO Unavailable [phone] Brad Hassan MD Primary Care Provider [phone] Encounter Details Date Type Department Care Team (Late st Contact Info) Description 08/23/2025 Orders Only External Location [address] [place] [phone] Provider, External Social History Tobacco Use Types [...] in the past 12 m [facility], were you homeless or living in a custodial (including now)? No 08/24/2025 [facility] Utilities Answer Date Recorded In the past 12 months has th e [employer], gas, oil, or water company threatened to [...] drink first t fabian in the morning (EYE-OVERAGE SHORTAGE AND DAMAGE CLERK) to steady your nerves or to get [...] Description 10/06/2025 9:10 AM EST Office Visit [facility] Orthopaedic Surgery & Sports Medicine [address], [address] [place] [address] Ricki Clark MD [address] [place] [address] documented as of this encounter [...] documented as of this encounter Care Teams Hardware Designer Relationship Specialty Start Date End Date Brad Hassan MD [address] [place] [address] PCP - General Internal Medicine 08/08/23 Greta Simpson DO [address] [address] Obstetrics and Gynecology 07/03/23 documented as of this encounter
--- OUTSIDE RECORDS SUMMARY | 2025-09-28 11:37 | XMS_ITS | Encounter Summary ---
Author Organization Healthcare Address [address] [place] [address] Care Team Providers Care Medical Radiation Therapist Name Role Phone Greta Simpson DO Unavailable [phone] Brad Hassan MD Primary Care Provider [phone] Encounter Details Date Type Department Care Team (Late st Contact Info) Description 08/23/2025 Orders Only External Location [address] [place] [phone] Provider, External Social History Tobacco Use Types [...] any time in the past 12 m [facility], were you homeless or living in a intermediate (including now)? No 08/24/2025 [facility] Utilities Answer Date Recorded In the past 12 months has th e [employer], gas, oil, or water company threatened to [...] drink first t fabian in the morning (EYE-CRIMINAL JUSTICE PROFESSOR) to steady your nerves or to get [...] Description 10/06/2025 9:10 AM EST Office Visit [facility] Orthopaedic Surgery & Sports Medicine [address], [address] [place] [address] Ricki Clark MD [address] [place] [address] documented as of this encounter [...] documented as of this encounter Care Teams Medical Radiation Therapist Relationship Specialty Start Date End Date Brad Hassan MD [address] [place] [address] PCP - General Internal Medicine 08/08/23 Greta Simpson DO [address] [address] [address] Obstetrics and Gynecology 07/03/23 documented as of this encounter
--- OUTSIDE RECORDS SUMMARY | 2025-09-28 11:37 | XMS_ITS | Encounter Summary ---
Author Organization Healthcare Address [address] [place] [address] Care Team Providers Care Supervisor Plating And Point Assembly Name Role Phone Greta Simpson DO Unavailable [phone] Brad Hassan MD Primary Care Provider [phone] Encounter Details Date Type Department Care Team (Late st Contact Info) Description 08/23/2025 Orders Only External Location [address] [place] [phone] Provider, External Social History Tobacco Use Types [...] any time in the past 12 m [facility], were you homeless or living in a fpc (including now)? No 08/24/2025 [facility] Utilities Answer Date Recorded In the past 12 months has th e [employer], gas, oil, or water company threatened to [...] drink first t fabian in the morning (EYE-ELIGIBILITY ANALYST) to steady your nerves or to get [...] Description 10/06/2025 9:10 AM EST Office Visit [facility] Orthopaedic Surgery & Sports Medicine [address], 1[address] [place] [address] Ricki Clark MD [address] [place] [address] documented as of this encounter [...] documented as of this encounter Care Teams Supervisor Plating And Point Assembly Relationship Specialty Start Date End Date Brad Hassan MD [address] [place] [address] PCP - General Internal Medicine 08/08/23 Greta Simpson DO [address] [address] Obstetrics and Gynecology 07/03/23 documented as of this encounter
--- NOTE | 2025-09-28 11:38 | XR_ITS ---
FINAL REPORT CLINICAL HISTORY: RIGHT ARM PAIN FINDINGS: AP, oblique, and lateral views of the right elbow were obtained. No true AP view provided. There is no prior exam for comparison. There is no acute fracture or dislocation. Mild degenerative disease is noted. There is no joint effusion or other soft tissue abnormality. IMPRESSION: No acute osseous abnormality of the right elbow. Mild degenerative change. Reviewed, Interpreted and Dictated by Cherrie Bajwa MD Transcribed by Ivelisse Holden Authenticated and [facility]
== END 2025-09-28 23:59 | disposition home or self-care (01) ==
LOC: RAD 11:32
PROVIDERS: PCP Nurse Practitioner Family; Visit Provider Nurse Practitioner Family
DX: S42.291A Other displaced fracture of upper end of right humerus, initial encounter for closed fracture (principal); M19.021 Primary osteoarthritis, right elbow; I48.91 Unspecified atrial fibrillation; M89.8X1 Other specified disorders of bone, shoulder; R94.31 Abnormal electrocardiogram [ECG] [EKG]; R42 Dizziness and giddiness
CPT/HCPCS: 73000; 73060; 73080; 93225; 93226

== ENCOUNTER 2025-10-11 20:48 | Emergency (ER) | payer MEDICARE, MEDICAID, SELFPAY ==
--- OUTSIDE RECORDS SUMMARY | 2025-08-23 20:41 | XMS_ITS | Encounter Summary ---
Author Organization Healthcare Address [address] [id number] Care Team Providers Care Frame Builder Name Role Phone Greta Simpson DO Unavailable [phone] Brad Hassan MD Primary Care Provider [phone] Reason for Referral * Consultation (Routine) - Authorized Specialty Diagnoses / Procedures Referred By Contac t Referred To Contact Neurology Diagnoses Fall, initial encounter Delirium Rodney Dwyer APRN [address] [place] [address] Phone: tel: fax: [facility] [address] [facility], [address] [place] [address] Phone: tel: fax: Referral ID Status Reason Start Date Expiration Date Visits Requested Visits Authorized [id number] Authorized Specialty Services Required 5 03/03/2027 1 1 Reason for Visit * Reason Comments Fall * Auth/Cert (Routine) Specialty Diagnoses / Procedures Referred By Contac t Referred To Contact Diagnoses Fall from standing, initial encounter Fall, laid on shoulder all night, right shoulder ball and socket joint fx Nikole Mann MD [address] [facility] [address] [place] [address] Phone: tel: fax: [facility] Emergency Department [address] [place] [address] Phone: tel: Referral ID Status Reason Start Date Expiration Date Visits Re quested Visits Authorized [id number] 1 1 Encounter Details Date Type Department Care Team (Latest Contact Info) Description 08/23/2025 9:41 PM EDT - 09/01/2025 3:35 PM EDT Hospital Encounter [facility] Inpatient [address] [id number] Flaquito Lerma MD [address] [place] [address] Kwesi Yang MD [address] [place] [address] Nikole Mann MD [address] [facility] [address] [place] [address] Juan Otero MD [address] [facility] [address] [place] [address] Caro Barry MD [address] [facility] [place] [address] Ester Vivas MD [address] [facility] [place] [address] Izzy Griffith MD [address] [place] [address] Fall, initial encounter (Primary Dx); Fx humeral neck, right, closed, initial encounter; Delirium Discharge Disposition: Long Term Facility Social History Tobacco Use Types Packs/Day Years Used Date Smoking Tobacco: Never Passive Smoke Exposure: Past Smokeless Tobacco: Never Alcohol Use Standard Drinks/Week Comments Never 0 (1 standard drink = 0.6 oz pur e alcohol) PHQ-2 Answer Date Recorded Patient Health Questionnaire-2 Score 0 09/02/2023 Humiliation, Afraid, Rape, and Kick questionnair e Answer Date Recorded Within the last year, have y ou been afraid of your partner or ex-partner? No 08/24/2025 Within the last year, have y ou been humiliated or emotionally abused in other ways by your partner or ex-partner? No Within the last year, have y ou been kicked, hit, slapped, or otherwise physically hurt by your partner or ex-partner? No 08/24/2025 Within the last year, have y ou been raped or forced to have any kind of sexual activity by your partner or ex-partner? No 08/24/2025 Hunger Vital Sign Answer Date Recorded Within the past 12 months, y ou worried that your food would run out before you got the money to buy more. Never true 08/24/20 25 Within the past 12 months, t he food you bought just didn't last and you didn't have money to get more. Never true 08/24/2025 PRAPARE - Transportation Answer Date Re corded In the past 12 months, has l ack of transportation kept you from medical appointments or from getting medications? No 08/05 In the past 12 months, has l ack of transportation kept you from meetings, work, or from getting things needed for daily living? No 08/24/2025 Housing Stability Vital Sign Answer Miki e Recorded In the last 12 months, was t here a time when you were not able to pay the mortgage or rent on time? No 08/24/2025 In the past 12 months, how m any times have you moved where you were living? 0 08/24/2025 At any time in the past 12 m [facility], were you homeless or living in a intermediate (including now)? No 08/24/[address] [facility] Utilities Answer Date Recorded In the past 12 months has th e electric, gas, oil, or water company threatened to shut off services in your home? No 08/24/2025 CAGE ASSESSMENT Answer Date Recorded Cage unable to access Not on file 08/08/2023 Cage max number of drinks Not on file 2022 Cage Beverages a week Not on file 08/08/2023 Have you ever felt you should CUT down on your d rinking? 0 08/08/2023 Have you been ANNOYED by people criticizing your drinking? 0 08/08/2023 Have you felt GUILTY about your drinking? 0 08/08/2023 Have you had a drink first t fabian in the morning ([employer]) to steady your nerves or to get rid of a hangover? 0 08/08/2023 CAGE Questionnaire Score 0 023 PHQ-2A Answer Date Recorded Patient Health Questionnaire-2 Score 0 09/02/2023 Comments No Sex and Gender Information Value Date Recorded Sex Assigned at Not on file Legal Sex Female 8:30 PM EDT Gender Identity Not on file Sexual Orientation Not on file documented as of this encounter Last Filed Vital Signs Vital Sign Reading Time Taken Comments Blood Pressure 104/70 09/01/2025 12:03 PM EDT Pulse 90 09/01/2025 12:03 PM EDT Temperature 36.3 C (97.4 F) 09/01/2025 12:03 PM EDT Respiratory Rate 23 08/31/2025 9:54 PM EDT Oxygen Saturation 97% 09/01/2025 12: 03 PM EDT Inhaled Oxygen Concentration - - Weight 70.2 kg (154 lb 12.2 oz) 08/30/2025 4:55 AM EDT Height 165.1 cm (5' 5 ) 08/26/2025 12:4 4 PM EDT Body Mass Index 25.75 08/26/2025 12:44 PM EDT documented in this encounter Functional Status * Question Answer Date of Assessment Author Precautions Fall risk 09/01/2025 12:00 PM EDT Cheryl Justice RN * Calculated C-SSRS Risk Score (Lifetime/Recent) Answer Date of Assessment Author No Risk Indicated 08/31/2025 8:00 PM EDT Gissell Hummel RN * Question Answer Date of Assessment Author 1. Wish to be (Past 1 Month) No 025 8:00 PM EDT Gissell Hummel RN 2. Non-Specific Active Suici giorgi Thoughts (Past 1 Month) No 08/31/2025 8:00 PM EDT Gissell Hummel RN 6. Suicidal Behavior (Lifetime) No 8:00 PM EDT Gissell Hummel RN documented as of this encounter Mental Status * Question Answer Entry Date Author Precautions Fall risk 09/01/2025 12:00 PM EDT Cheryl Justice RN documented in this encounter Discharge Instructions * Discharge Instructions* Rodney Dwyer APRN - 09/01/2025 1:09 PM EDT DVT prophylaxis: None on discharge Procedures: None Mobility Restrictions: RUE: Non weight bearing with cuff and collar Wound Care: Wash wounds daily with warm, soapy water Incidental Findings: - Calcific tendinopathy - 7mm granuloma in left lung Follow up: PCP: Follow up in 1-2 weeks post hospitalization for incidental findings and management of chronic conditions/medications Neurology: Outpatient referral for cognitive issues and forgetfulness. They will call you with a time. ORT: 10/06 at 8:30AM @ Orthopaedic Surgery & [facility] Medicine; [facility], [address] [place] [address] First Floor, Wing C, [address], [place] [address], # [phone]. SGT: [facility] as needed; [address] [place] [address] First Floor, [address] [address], #[phone]. Questions or Concerns and Appointments If there are questions or concerns after discharge from the hospital, please call [phone] and ask for Blue Surgery Nurse. Working hours are Saturday - Saturday 8:00 AM to 4:00 PM. After hours, weekends and holidays please call [phone] and ask for the resident stitcher tape controlled machine for Blue Surgery. For appointments please call [phone]. Medication requests should be made between the hours of 9:00 AM to 3:00 PM Saturday thru Saturday. Please note that based upon recent changes to [place] law related to prescribing opioid pain medications, our providers will not provide refills on controlled medications after your hospital discharge following a major surgery or trauma. [place] 218[place].172, [place].205 [place] 201 KAR9:260. documented in this encounter Medications at Time of Discharge acetaminophen (Tylenol) 500 MG tablet Take 1 tablet by mouth every 6 hours as needed. buPROPion XL (Wellbutrin XL) 300 MG 24 hr tablet Take 1 tablet by mouth every morning. Do not crush, chew, or split. busPIRone (Buspar) 10 MG tablet Take 1 tablet by mouth 2 times a day. carvedilol (Coreg) 3.125 MG tablet Take 1 tablet by mouth 2 times a day with meals. Cinnamon 500 MG tablet Take 1,000 mg by mouth 1 (one) time each day in the morning. empagliflozin (Jardiance) 25 MG Take 1 tablet by mouth daily. FLUoxetine (PROzac) 40 MG capsule Take 1 capsule by mouth 2 times a day. hydrOXYzine HCl (Atarax) 25 MG tablet Take 1 tablet by mouth 4 times a day. losartan (Cozaar) 25 MG tablet Take 1 tablet by mouth daily. methocarbamol (Robaxin) 500 MG tablet Take 2 tablets by mouth every 8 hours. 09/01/2025 naloxone (Narcan) 4 mg/0.1 mL nasal spray 1. Give 1 spray in nostril for no/slow breathing or cannot wake after opioid use 2. Call 911 3. Repeat in other nostril if symptoms continue 1 each 09/01/2025 omega-3 1000 MG capsule Take 1 capsule by mouth every morning. omeprazole (PriLOSEC) [address] capsule Take 1 capsule by mouth daily. Do not crush or chew. pravastatin (Pravachol) 20 MG tablet Take 1 tablet by mouth daily. spironolactone (Aldactone) 25 MG tablet Take 0.5 tablets by mouth daily. tirzepatide (Mounjaro) 7.5 MG/0.5ML solution auto-injector solution pen-injector Inject 0.5 mL under the skin 1 time per week. Saturday Vibegron (Gemtesa) 75 MG tablet Take 75 mg by mouth daily. oxyCODONE (Roxicodone) 5 MG immediate release tablet Take 1 tablet by mouth every 4 hours as needed for severe pain for up to 3 days. 18 tablet 09/01/2025 5 senna-docusate (Shira-Colace) 8.6-50 MG tablet Take 1 tablet by mouth 2 times a day. 09/01/2025 5 documented as of this encounter Miscellaneous Notes * Query Clarification Note - Rodney Dwyer APRN - 09/01/2025 3:35 PM EDT Physician Clarification [x] Fracture likely due to a combination of a pathological process (osteoporosis) and mild trauma that alone would not likely have caused the fracture in normal healthy bone [] Fracture likely due to trauma alone [] Fracture likely pathological (due to weakening of bone structure due to osteoporosis) [] Other (please specify) This documentation will become part of the patient's medical record. * Progress Notes - Kandace Briseno - 09/01/2025 1:30 PM EDT Case Management Discharge Note Madyson Machado 65 y.o. female CSN: [id number] Admission: 08/23/2025 9:41 PM Primary Problem: Fall Primary Barbering Instructor: Primary Caregiver: Self Assistance Available at Discharge: Current Outpatient/Agency/Support Group: DME Availability of Care Givers (#Hours): 24 hours Housing Circumstances-Z Codes: Housing Circumstances (select all that apply): Low Income (101-300% Federal Poverty Guidlines) - Z596 Patient Referred to Financial or Community Resources: Discharge Facility/Level of Care Needs: Discharge Facility/Level of Care Needs: 3-Long Term Facility Patient's Choice of Community Agency(s): Patient/Family Anticipated Services at Transition: Patient/Family Anticipated Services at Transition: [facility], rehabilitation services DME/Equipment Needed after Discharge: Equipment Currently Used at Home: cane, straight Readmission Within the Last 30 Days: Readmission Within the Last 30 Days: no previous admission in last 30 days Medicare Documentation: Follow-up: [address] [address] Follow up Primary care provider (PCP) Brad Hassan MD [address] [place] [address] Julianna Copeland S, DO [address] [facility] [address] [place] [facility] [address], 1[address] Floor [address] [facility] [address] Discharge Transportation: Transportation Anticipated: medical transport Transportation Home at Discharge: Medical Transport Has discharge transport been arranged?: Yes What day is the transport expected?: 09/01/25 What time is the transport expected?: 1500 Follow Up Transport: Transportation Needed to Follow up Appoinments: Medical Transport Additional Comments: Per SGT provider, pt is medically ready for d/c to [facility] this day. Pt has been accepted to [facility] and has a bed and insurance auth this day. [facility] stretcher transport scheduled for bedside pickup at 15:00. RN to call report to [phone]. Pt daughter is aware and agreeable to d/c plan with no questions. Kandace Briseno * Declan English RN - 09/01/2025 1:23 PM EDT Images from the original note were not included. 450 Safe Use of Controlled Substances Taking a medicine may be an important part of your treatment. Your body should heal faster if you take medicine safely. Some medicines are called Controlled Substances. This means their use is controlled by law. Some of these can harm you if you do not take them safely. What can I do to make sure I take my medicine safely? ? Follow the instructions we give you for how to take your medicine. ? We will give you an instruction sheet for each of your medicines. Ask your doctor or nurse if youdo not get these instructions. ? Some medicines make you sleepy or cloud your thinking. Do not drive, use heavy machines or do dangerous activities while taking these medicines. ? Read the label on the bottle each time you take your medicine. ? Do not take your medicine with alcohol or other sedatives. ? Do not take medicine after the expiration date. ? It is against the law to sell your medicine or share it with others. ? Do not drive while using your medicine. How should I store my medicine? Store it in a safe place. This will keep others from taking your medicine and help you keep track of it. ? Store controlled substances in a cabinet or container that you can lock. ? Keep it in a place that is cool, dry and out of direct sunlight. ? Do not leave it in the car. ? Do not store in a refrigerator or freezer, unless your doctor tells you to. ? Call your doctor right away if your medicine is lost or stolen. How should I dispose of medicine that is or no longer needed? You may have medicine left over that you do not need or should not take. You must dispose of it theright way to protect yourself and others. You can ask your local pharmacist how to dispose of them.You can also visit these Web sites to learn more about disposal of controlled substances: ? Drug Enforcement Agency ([place]ONATH[place]): http://www.deadiversion.Liligo.comoEmbrane.gov/drug_disposal/takeback/index.htm ? National Association of Drug Diversion Investigators (NADDI): http://rxdrugdropbox.org/ ? [place] Office of Drug Control Policy: http://odcp.[place].gov/Prescription+Drug+Drop+Box+Sites.htm Are there concerns about or ? ? Before you take a medicine, tell your doctor if you are or plan to get . This could harm your baby. ? Tell your doctor if you breastfeed. Medicine in breast milk may be bad for your child. What if I have low or impaired vision? If you have vision problems, take extra care with your medicine. ? Wear your glasses when you take your medicine. ? Do not take medicine in the dark. What are the signs of overdose? Some controlled substances may cause breathing problems if you take more than your doctor recommends. This may lead to serious health problems or even . You and your caregivers should watch for the following signs of overdose. ? Slurred speech, confusion or stumbling ? Feeling dizzy or faint ? Acting drowsy or groggy ? Unusual snoring, gasping or snorting during sleep ? Hard to wake up or keep awake What should I or my caregiver do if I overdose? You or your caregiver should call 911 if you have any of these problems: ? Cannot wake up ? Cannot talk after waking up ? Shortness of breath, slow or light breathing, or breathing has stopped ? Heartbeat is slow or stopped ? Gurgling noise comes from the mouth or throat ? Body is limp or seems lifeless ? Face is pale or clammy ? Fingernails or lips look blue or purple What is a BANNER report? PITO is a system that tracks prescriptions of controlled substances in [place]. The PITO report tells your doctor if you have been prescribed controlled substances in the past. Doctors must get a PITO report before prescribing controlled substances. What can I do if the information in my PITO report is wrong? You or your doctor may contact the dispenser who reported the information to BANNER. If the dispenser agrees that the information should be changed, he or she can fix the PITO report. However, the dispenser may certify that the report is correct. If that is the case, you or your doctor may then call the [place] Drug Enforcement and Professional Practices Branch at .This will start an investigation of the error. * [facility] - Declan Chew RN - 09/01/2025 1:23 PM EDT Images from the original note were not included. 1087 Oxycodone Oral Tablet, Immediate Release Brand Names: Oxaydo, Roxicodone What is this medicine? Oxycodone (aq-n-KDN-done) is an opioid pain reliever. It is used to treat moderate to severe pain. What should I tell my health care provider before I take this medicine? They need to know if you have any of these conditions: ? Pershing's disease ? Brain tumor or head injury ? Personal or family history of drug abuse or addiction ? Heart disease ? Frequent alcohol use ? Kidney disease ? Liver disease ? Lung disease, asthma, or breathing problems ? Depression, anxiety, or other psychiatric disease ? Allergy or unusual reaction to oxycodone, acetaminophen or other pain relievers ? , trying to get , or How should I use this medicine? Take this medicine as prescribed by your doctor, and follow the directions on the prescription label. ? Take this medicine as prescribed by your doctor. Follow the directions on the prescription label. ? Do not take this medicine more often than directed. ? This medicine should be taken with a full glass of water. ? If it upsets your stomach, you may take it with food. You do not have to take this medicine with food. ? Do not crush, cut, chew, lick, wet, soak, or otherwise manipulate a tablet before taking. ? Do not share this medicine with others. This medicine is only for you. ? The pharmacy will give you a special medication guide each time you pickling drum operator this medicine. ? Overdosage: Taking too much of this medicine can be deadly. Your doctor may prescribe another medicine with this medicine to treat an accidental overdose. If you think you have taken too much of this medicine, call 911 immediately. What if I miss a dose? If you miss a dose, you may take it as soon as you remember. If it is almost time for your next dose, take only that dose. Do not take double or extra doses. What may interact with this medicine? ? Alcohol ? Medicines for sleep, depression, anxiety, or psychiatric diseases ? Seizure medicines like gabapentin, pregabalin, phenytoin, or phenobarbital ? Other pain medicines like tramadol, hydrocodone, fentanyl, or morphine ? Muscle relaxers ? Certain nausea medicines like chlorpromazine or promethazine ? Cannabinoids like droperidol ? Certain antibiotics like erythromycin, clarithromycin, rifampin, ritonavir, voriconazole, or ketoconazole ? Allergy medicines like diphenhydramine This list may not describe all possible interactions. Give your health care provider a list of all the medicines, herbs, non-prescription drugs, or dietary supplements you use. Also tell them if you smoke, drink alcohol, or use illegal drugs. Some items may interact with your medicine. What should I watch for while using this medicine? ? Before you start taking this medicine, talk with your doctor about how long you should be on thismedicine. You should also talk to your doctor about other things you can do to treat pain, including other medicines or non-drug treatments like meditation or acupuncture. While taking this medicine,tell your doctor if your pain does not go away or gets worse or if you have a new or different typeof pain. ? It is possible you could become dependent on this medicine. The risk of dependence increases the longer you are on the medicine. Dependence is not addiction; however, if you have a personal or family history of addiction, you are at higher risk for becoming addicted to this medicine. Talk to yourdoctor if you are worried about dependence or addiction. ? If you take this medicine for a long time and suddenly stop taking this medicine, you may withdraw from this medicine. Withdrawal from this medicine may cause sweating, pain, diarrhea, anxiety, tremor, and other symptoms. Stopping the medicine slowly can reduce withdrawal symptoms. ? This medicine may cause dizziness or drowsiness, especially when you change doses or first start the medicine. Do not drive, use machinery, or do anything dangerous until you know how your body reacts to this medicine. ? This medicine causes constipation. Unless your doctor tells you not to, you should take a stool softener while on this medicine. Tell your doctor if you have not had a bowel movement in 3 or more days while on this medicine. ? This medicine can also cause dry mouth. Drinking water, chewing gum, or sucking on hard candy canhelp. It is important to keep regular dentist appointments. What side effects may I notice from receiving this medicine? Side effects that you should report to your doctor or health intensive care medicine specialist as soon as possible: ? allergic reactions like skin rash, itching or hives, swelling of the face, lips, or tongue ? breathing problems ? confusion ? craving for the medicine or withdrawal symptoms with a missed dose ? feeling faint or lightheaded, falls ? trouble passing urine or change in the amount of urine ? unusually weak or tired Side effects that usually do not require medical attention (report to your doctor or health intensive care medicine specialist if they continue or are bothersome): ? constipation ? dry mouth ? itching ? nausea, vomiting ? upset stomach This list may not describe all possible side effects. Call your doctor for medical advice about side effects. You may report side effects to FDA at 8-269-EGG-8949. Where should I keep my medicine? This medicine should be kept in a locked cabinet away from children and protected from theft. This medicine can be abused. Do not share this medicine with anyone. Selling or giving away this medicineis against the law. Store at room temperature (60-80??F) in a dry place that is protected from light. Do not save unused medicine that is no longer needed. Unused medicine should be taken to a proper disposal location. To find a disposal location, visit [place]/[facility]/[place]. If you cannot take unused medicine to a proper location, you can mix the medicine with coffee grounds or fausto litter and dispose of in the normal trash. Your doctor may also give you a special disposal pouch for this medicine. You can also flush the medicine down the toilet. * [facility] - Declan Chew RN - 09/01/2025 1:23 PM EDT Images from the original note were not included. [id number] Naloxone Nasal Rudolph WHY is this medicine prescribed? Prescription and nonprescription (over the counter) naloxone nasal spray is used along with emergency medical treatment to reverse the life-threatening effects of a known or suspected opiate (narcotic) overdose in adults and children. Naloxone nasal spray is in a class of medications called opiate antagonists. It works by blocking the effects of opiates to relieve dangerous symptoms caused by high levels of opiates in the blood. HOW should this medicine be used? Naloxone comes as a solution (liquid) to spray into the nose. It is usually given as needed to treat opiate overdoses. Each naloxone nasal spray contains a single dose of naloxone and should be used only once. You will probably be unable to treat yourself if you experience an opiate overdose. You should makesure that your family members, caregivers, or the people who spend time with you know how to tell if you are experiencing an overdose, how to use naloxone nasal spray, and what to do until emergency m edical help arrives. Your doctor or pharmacist will show you and your family members how to use themedication. You and anyone who may need to give the medication should read the instructions that come with the nasal spray. Ask your pharmacist for the instructions or visit the geotechnical engineer's website to get the instructions. You should keep the nasal spray available at all times in case you experience an opioid overdose. Be aware of the expiration date on your device and replace the spray when this date passes. Naloxone nasal spray may not reverse the effects of certain opiates such as buprenorphine (Belbuca,Buprenex, Butrans, Sublocade) and pentazocine (Talwin) and may require additional naloxone doses with a new nasal spray each time. Symptoms of an opioid overdose include excessive sleepiness, not awakening when spoken to in a loudvoice or when the middle of your chest is rubbed firmly, shallow or stopped breathing, or small pupils (black circles in the center of the eyes). If someone sees that you are experiencing these symptoms, he or she should give you your first naloxone dose and then call 911 immediately. After receiving the naloxone nasal spray, a person should stay with you and watch you closely until emergency medical help arrives. To give the inhaler, follow these steps: ? Lay the person on their back to give the medication. ? Remove the naloxone nasal spray from the box. Peel back the tab to open the spray. ? Do not prime the nasal spray before using it. ? Hold the naloxone nasal spray with your thumb on the bottom of the plunger and your first and middle fingers on either side of the nozzle. ? Gently insert the tip of the nozzle into one nostril, until your fingers on either side of the nozzle are against the bottom of the person's nose. Provide support to the back of the person's neck with your hand to allow the head to tilt back. ? Press the plunger firmly to release the medication. ? Remove the nasal spray nozzle from the nostril after giving the medication. ? Turn the person on their side (recovery position) and call for emergency medical assistance immediately after giving the first naloxone dose. ? If the person does not respond by waking up, to voice or touch, or breathing normally or respondsand then relapses, give another dose. If needed, give additional doses (repeating steps 2 through 7) every 2 to 3 minutes in alternate nostrils with a new nasal spray each time until emergency medical assistance arrives. ? Put the used nasal spray(s) back in the container and out of reach of children until you can safely dispose of it. Ask your pharmacist or doctor for a copy of the geotechnical engineer's information for the patient. Are there OTHER USES for this medicine? This medication may be prescribed for other uses; ask your doctor or pharmacist for more information. What SPECIAL PRECAUTIONS should I follow? Before receiving naloxone nasal spray, ? tell your doctor and pharmacist if you are allergic to naloxone, any other medications, or any ofthe ingredients in naloxone nasal spray. Ask your pharmacist for a list of the ingredients. ? tell your doctor and pharmacist what other prescription and nonprescription medications, vitamins, nutritional supplements, and herbal products you are taking or plan to take. Be sure to tell your doctor about all the medications you are taking. ? tell your doctor if you have or have ever had heart disease. ? tell your doctor if you are , plan to become , or are . If you receive naloxone nasal spray during , your doctor may need to monitor your unborn baby carefullyafter you receive the medication. What SIDE EFFECTS can this medicine cause? Some side effects can be serious. If you experience any of these symptoms, get emergency medical treatment: ? signs of opiate withdrawal such as body aches, diarrhea, fast, pounding, or irregular heartbeat, fever, runny nose, sneezing, sweating, yawning, nausea, vomiting, nervousness, restlessness, irritability, shivering, trembling, stomach cramps, weakness, and the appearance of hair on the skin standing on end ? seizures ? loss of consciousness ? crying more than usual (in babies treated with naloxone nasal spray) ? stronger than normal reflexes (in babies treated with naloxone nasal spray) Naloxone nasal spray may cause other side effects. Call your doctor if you have any unusual problems while receiving this medication. If you experience a serious side effect, you or your doctor may send a report to the Food and Drug Administration's (FDA) MedWatch Adverse Event Reporting program online (https://www.fda.gov/Safety/MedWatch) or by phone ( ). What should I know about STORAGE and DISPOSAL of this medication? Keep this medication in the container it came in, tightly closed, and out of reach of children. Store it at room temperature and away from light, excess heat and moisture (not in the bathroom). Do not freeze the naloxone nasal spray. Keep all medication out of sight and reach of children as many containers are not child-resistant. Always lock safety caps. Place the medication in a safe location - one that is up and away and out of their sight and reach. https://www.RallyCause.org Dispose of unneeded medications in a way so that pets, children, and other people cannot take them.Do not flush this medication down the toilet. Use a medicine take-back program. Talk to your pharmacist about take-back programs in your community. Visit the FDA's Safe Disposal of Medicines website h ttps://goo.gl/c4Rm4p for more information. What OTHER INFORMATION should I know? Keep a written list of all of the prescription and nonprescription (hxgw-tvb-skczwud) medicines, vitamins, minerals, and dietary supplements you are taking. Bring this list with you each time you visit a doctor or if you are admitted to the hospital. You should carry the list with you in case of bambi rgencies. Brand Name(s): ? Kloxxado?? ? Narcan?? ? Rezenopy?? also available generically This report on medications is for your information only, and is not considered individual patient advice. Because of the changing nature of drug information, please consult your physician or pharmacist about specific clinical use. The [employer] [employer] represents that the information provided hereunder was formulated with a reasonable standard of care, and in conformity with professional standards in the field. The [employer] makes no representations or warranties, express or implied, including, but not limited to, any implied warranty of merchantability and/or fitness for a particular purpose, with respect to such information and specifically disclaims all such warranties. Users are advised that decisions regarding drug therapy are complex medical decisions requiring the independent, informed decision of an appropriate health intensive care medicine specialist, and the information is provided for informational purposes only. The entire monograph for a drug should be reviewed for a thorough understanding of the drug's actions, uses and side effects. The [employer] does not endorse or recommend the use of any drug.The information is not a substitute for medical care. AHFS?? Patient Medication Information?. ?? Copyright, 2023. The [employer]??, [address], [address], [place], [place]. All Rights Reserved. Duplication for commercial use must be authorized by [facility]. Selected Revisions: May 23, 2024. AHFS?? Patient Medication Information?. ?? Copyright, 2024 * Discharge Summary - Rodney Dwyer, CLINICAL SERVICES DIRECTOR - 09/01/2025 1:19 PM EDT Hospitalization Admit Date/Time: 08/23/2025 9:41 PM Admitting Attending: Nikole Mann Discharge Date: 09/01/25 Discharge Attending Physician: Juan Otero MD PCP name and Address: Brad Hassan MD [address] / [place] [address] Referring provider name and address: Julianna Copeland, DO [address] [place] [address] Chief Concern, Brief History of Present Illness, and Hospital Course Brigid Machado is a 65 y/o female with a PMHx of HTN, DM, HLD, CKD, CHF who presents from OSH on 08/24 after fall from standing. Patient got up off the couch when she got dizzy and fell. Had recent workup for dizziness, unable to get records. Injuries include: R humerus neck fx Past 24h: Patient sitting up in chair resting comfortably. Nursing moved her to the chair and she received pain medication which made her a little drowsy. But she has done fantastic today. Eating all her breakfast and swallowing pills like normal. All blood work and scans look great and speech eval came backnormal. Discussed with Daughter on the phone about discharge who had concerns but they have been all addressed. VSS on RA. Last BM 09/01. Pain well controlled. Discussed plan of care with patient/family, who is in understanding. No further concerns per patient or nursing. Physical therapy and occupational therapy evaluated the patient during hospitalization and recommend subacute rehab. At the time of discharge the patient was hemodynamically stable, tolerating PO, voiding spontaneously, normal bowel function, mobilizing appropriately, with their pain controlled with PO medication. At this time, the patient has obtained the maximum benefit from the present hospital stay, and so will be discharged to [facility] in [place]. DVT prophylaxis: None on discharge Procedures: None Mobility Restrictions: RUE: Non weight bearing with cuff and collar Wound Care: Wash wounds daily with warm, soapy water Incidental Findings: - Calcific tendinopathy - 7mm granuloma in left lung Follow up: PCP: Follow up in 1-2 weeks post hospitalization for incidental findings and management of chronic conditions/medications Neurology: Outpatient referral for cognitive issues and forgetfulness. They will call you with a time. ORT: 10/06 at 8:30AM @ Orthopa[facility] Surgery [facility]; [facility], [address] [place] [address], First Floor, Wing C, [address], [place] [address], # [phone]. SGT: [facility] as needed; [address] [place] [address] First Floor, [address] [address], #[phone]. Questions or Concerns and Appointments If there are questions or concerns after discharge from the hospital, please call [phone] and ask for Blue Surgery Nurse. Working hours are Saturday - Saturday 8:00 AM to 4:00 PM. After hours, weekends and holidays please call [phone] and ask for the resident stitcher tape controlled machine for Blue Surgery. For appointments please call [phone]. Medication requests should be made between the hours of 9:00 AM to 3:00 PM Saturday thru Saturday. Please note that based upon recent changes to [place] law related to prescribing opioid pain medications, our providers will not provide refills on controlled medications after your hospital discharge following a major surgery or trauma. [place] 218[place], [place].205 [place] 201 KAR9:260. Surgeries and Procedures Medication List .. acetaminophen 500 MG tablet Commonly known as: Tylenol Take 1 tablet by mouth every 6 hours as needed. buPROPion XL 300 MG 24 hr tablet Commonly known as: Wellbutrin XL Take 1 tablet by mouth every morning. Do not crush, chew, or split. busPIRone 10 MG tablet Commonly known as: Buspar Take 1 tablet by mouth 2 times a day. carvedilol 3.125 MG tablet Commonly known as: Coreg Take 1 tablet by mouth 2 times a day with meals. Cinnamon 500 MG tablet Take 1,000 mg by mouth 1 (one) time each day in the morning. empagliflozin 25 MG Commonly known as: Jardiance Take 1 tablet by mouth daily. FLUoxetine 40 MG capsule Commonly known as: PROzac Take 1 capsule by mouth 2 times a day. Gemtesa 75 MG tablet Generic drug: Vibegron Take 75 mg by mouth daily. hydrOXYzine HCl 25 MG tablet Commonly known as: Atarax Take 1 tablet by mouth 4 times a day. losartan 25 MG tablet Commonly known as: Cozaar Take 1 tablet by mouth daily. methocarbamol 500 MG tablet Commonly known as: Robaxin Take 2 tablets by mouth every 8 hours. naloxone 4 mg/0.1 mL nasal spray Commonly known as: Narcan 1. Give 1 spray in nostril for no/slow breathing or cannot wake after opioid use 2. Call 911 3. Repeat in other nostril if symptoms continue omega-3 1000 MG capsule Take 1 capsule by mouth every morning. omeprazole [address] capsule Commonly known as: PriLOSEC Take 1 capsule by mouth daily. Do not crush or chew. oxyCODONE 5 MG immediate release tablet Commonly known as: Roxicodone Take 1 tablet by mouth every 4 hours as needed for severe pain for up to 3 days. pravastatin 20 MG tablet Commonly known as: Pravachol Take 1 tablet by mouth daily. senna-docusate 8.6-50 MG tablet Commonly known as: Shira-Colace Take 1 tablet by mouth 2 times a day. spironolactone 25 MG tablet Commonly known as: Aldactone Take 0.5 tablets by mouth daily. tirzepatide 7.5 MG/0.5ML solution auto-injector solution pen-injector Commonly known as: Mounjaro Inject 0.5 mL under the skin 1 time per week. Saturday Where to Get Your Medications These medications [place] - [address] [address] [address] [facility] [address] naloxone 4 mg/0.1 mL nasal spray oxyCODONE 5 MG immediate release tablet Information about where to get these medications is not yet available Ask your nurse or doctor about these medications methocarbamol 500 MG tablet senna-docusate 8.6-50 MG tablet Discharge Diagnosis Medical Problems Active and Resolved Hospital Problems Hospital * (Principal) Fall (Chronic) Closed displaced fracture of surgical neck of right humerus Dizziness Tendinopathy Primary hypertension Diabetes mellitus CKD (chronic kidney disease) Chronic heart failure with mildly reduced ejection fraction (HFmrEF, 41-49%) Delirium Current Assessment & Plan 08/23/2025 Hospital Encounter Written 08/31/2025 1:45 PM by Rodney Dwyer APRN Per family, baseline status 08/26: UA negative for UTI Neuropsych eval attempted; but unsuccessful, see their note. 08/31: Messaged neuropsych and they said they will not come back Most likely undiagnosed dementia Anxiety and depression Overactive bladder GERD (gastroesophageal reflux disease) Chest pain Current Assessment & Plan 08/23/2025 Hospital Encounter Edited 09/01/2025 1:09 PM by Rodney Dwyer APRN 1 episode of chest pain and SOB on 08/31. Possible aspiration. CXR, EKG, Labs unremarkable. Speech eval performed without findings. Most likely GCS waxes and wanes. IV morphine provided with relief. 09/01 doing well today with no concerns Osteoporosis Current Assessment & Plan 08/23/2025 Hospital Encounter Written 09/01/2025 6:36 AM by Rodney Dwyer APRN Age related decline, continue to monitor, RESOLVED: Fall from standing, initial encounter Outpatient Follow-Up Future Appointments Date Time Provider Department Center 10/06/2025 9:10 AM Ricki Clark MD [facility] [place] Test Results Pending At Discharge Pertinent Physical Exam At Time of Discharge Physical Exam Vitals reviewed. HENT: Mouth/Throat: Mouth: Mucous membranes are moist. Eyes: Conjunctiva/sclera: Conjunctivae normal. Cardiovascular: Rate and Rhythm: Normal rate. Pulmonary: Effort: Pulmonary effort is normal. No respiratory distress. Musculoskeletal: General: Signs of injury (R shoulder) present. Skin: General: Skin is warm and dry. Capillary Refill: R radial pulse strong, hand warm, good color Findings: Bruising (R shoulder, R breast, R arm) present. Neurological: Mental Status: She is alert. Psychiatric: Mood and Affect: Mood normal. Behavior: Behavior normal. Discharge Disposition/Condition Disposition: Rehab facility (specify)[facility] [place] Condition: Stable (s/sx potential problems absent or manageable) I spent >30 minutes of patient care and instruction time in preparation for this discharge. Cosigned by Juan Otero MD at 09/01/2025 1:34 PM EDT Associated attestation - Juan Otero MD - 09/01/2025 1:34 PM EDT The patient was seen only by Advanced Practice Provider ([facility]). Juan Otero MD, CYDNEY associate sales Division of Acute Care Surgery * Elo Alcantar - Declan Chew RN - 09/01/2025 11:01 AM EDT Images from the original note were not included. [address] Preventing Falls: Making Changes in Your Living Space Is your living space filled with hazards that could cause you to fall? Changes can make you safer. They could even save your life. Take a careful look around your home. Change what you can on your own. Hire someone or ask friends or family to help with harder tasks. Be sure to add a nonslip mat to the inside of your shower or bathtub. Always keep a nightlight on. Keep a clear path from your bed to the bathroom. Move items from higher shelves to lower ones. Remove hazards ? Remove things that can trip you. These include throw rugs, boxes, piles of paper, and cords. ? Nail down rugs or carpets if you don't want to remove them. Use slip-resistant backing. ? Don't store items on stairs. ? Keep walkways clear. ? Clean up spills right away. ? Replace glass tables with wooden ones. They're safer if you fall. Add safety devices ? Add handrails to both sides of stairs. ? Buy a raised toilet seat. ? Add grab bars near the toilet and in the shower. ? Get grabbers to help you reach things and prevent climbing. Improve lighting ? Add nightlights to halls, bedrooms, and bathrooms. ? Put light switches at the top and bottom of stairs. ? Be sure each room and flight of stairs has the right lighting. ? Use shades or curtains to cut glare from windows. ? Put flashlights in each room. Replace burned-out bulbs. ? Get glowing light switches for room entrances. Take other precautions ? Use nonskid floor wax. ? Buy a nonslip mat and a liquid soap dispenser for the shower. ? Put most-used items within easy reach. ? Add bright paint or tape on the top front edge of steps. ? Save big jobs, such as moving furniture or other heavy objects, for family or friends. ? Get professional help installing grab bars. They can be unsafe if not installed the right way. Fix higher-risk rooms first Don't tackle everything at once. Focus on one room at a time. The bathroom is a common spot for falls, so you may want to start there. Or start with a room you spend lots of time in, such as your bedroom. Make only a few changes at once. This will give you time to adjust to them. Outside safety You could arrange for these changes yourself. But you might need to talk to your building drafter or homeowners' association about them. ? Have loose boards on porches or damaged stairs repaired. ? Have rough edges, holes, or large cracks in sidewalks or driveways repaired. ? Remove hazards that could trip you, such as hoses or nora. ? Use high-wattage light bulbs (100 alvarado or greater) near outside doors and stairs. ? Add handrails to outside stairs. Have them extend beyond the bottom step. ? Get help in the winter with ice or snow removal. Last Reviewed Date: 2025 00:00:00 ?? 9811-4947 The [employer]. All rights reserved. This information is not intended as a substitute for professional medical care. Always follow your healthcare professional's instructions. * Elo SofiaGEETA - Declan Chew RN - 09/01/2025 11:01 AM EDT Images from the original note were not included. 110420in Fall Prevention Falls often take place due to slipping, tripping, or losing your balance. Millions of people fall every year and injure themselves. Among older adults in the [place] falls are the most common cause of traumatic brain injuries. Every 20 minutes, an older adult dies from a fall. Here are ways to reduceyour risk of falling again: ? Think about your fall. Was there anything that caused your fall that can be fixed, removed, or replaced? ? Make your home safe by keeping walkways clear of objects you may trip over, such as animal toys and electrical cords. ? If you are sad or depressed talk to your health care provider. Symptoms of depression, such as feeling under the weather, or physically slowed down, have been linked to an increased fall risk. ? Drink fluids throughout the day. Dehydration can lead to dizziness and increase your risk of falling. It's best to talk to your primary care providers about how much water you should drink. They know your medical history, your current prescriptions and your ehjd-ees-tarnpon medicines. As a general rule, the National [place] on Aging (NCA) recommends taking one-third of your body weight and drinking that number of ounces in fluids. For example, if you weigh 150 pounds, you would drink at least50 ounces, or about 6 cups, of fluid each day. Ask your provider if it's safe for you to use this formula. ? Use nonslip pads under rugs. Don't use area rugs or small throw rugs. ? Use nonslip mats in bathtubs and showers. ? Hang grab rails by the toilet and inside and outside the shower. ? Install handrails and lights on staircases. The handrails should be on both sides of the stairs. ? Use night lights. ? Don't walk in poorly lit areas. ? Don't stand on chairs or wobbly ladders. ? Use care when reaching overhead or looking up. This position can cause a loss of balance. ? Be sure your shoes fit well, are in good condition, and have nonslip bottoms. ? Wear shoes both inside and outside of your home. Don't go barefoot or wear slippers. ? Be cautious when going up and down stairs, curbs, and when walking on uneven sidewalks. ? If your balance is poor, consider using a cane or walker. Talk with your health care provider about having a balance assessment. ? If your fall was related to alcohol use, stop or limit alcohol intake. Ask your provider for helpif you think you may overuse alcohol and can't stop. ? If your fall was related to use of sleeping medicines, talk with your provider about this. You may need to reduce your dosage at bedtime if you wake up during the night to go to the bathroom. ? To reduce the need for nighttime bathroom trips: o Don't drink fluids for several hours before going to bed. o Empty your bladder before going to bed. o Men can keep a urinal at the bedside. ? Stay as active as you can. Balance, flexibility, strength, and endurance all come from exercise. They all play a role in preventing falls. Ask your provider which types of activity are right for you. Try to do some type of exercise every day. ? Get your eyes checked once a year or more often if your vision changes. Be extra cautious while adjusting to new prescription lenses. ? If you have pets, know where they are before you stand up or walk so you don't trip over them. ? Go over all your medicines with a pharmacist or other provider. This is to see if any of them could make you more likely to fall. Have this type of medicine review at least once every year. ? If your provider advises a new medicine, ask if the side effects will affect your balance. ? Don't move quickly from one position to another. For instance, don't stand up fast from sitting. This can cause dizziness and may lead to a fall. ? Sit down when putting on pants, socks, and shoes. This will make you less likely to lose your balance and fall. ? Always let your provider know if you have fallen since your last visit. ? Contact your provider right away if you're having balance problems or falling more often. Last Reviewed Date: 2025 00:00:00 ?? [id number] [employer]. All rights reserved. This information is not intended as a substitute for professional medical care. Always follow your healthcare professional's instructions. * Elo Alcantar - Declan Chew, RN - 09/01/2025 11:01 AM EDT Images from the original note were not included. [address] Wearing a Cuff and Collar Sling What is it? Cuff and Collar Sling This device is a type of sling that uses gravity to hold your broken bones in place. It may be usedby itself or with a humeral fracture brace. How do I put on the sling? ? In sitting, place the Velcro wrist band around your injured arm. ? Adjust the wrist band so that the cotton loop on the wrist band is in line with your thumb. ? Place the adjustable strap around your neck, threading the strap through the cotton loop on the wrist band. ? Attach the metal hook to the other end of the strap. ? Tighten the strap until your upper arm and lower arm are shaped like the letter ?L? or at a 90-degree angle. ? Adjust the foam padding on the strapping around the back of your neck for pressure relief. How do take the sling off? ? Reverse the steps of putting the sling on. ? Bend your elbow up to release tension on the strap and unbuckle the metal hook. When can I shower/bathe? Once your doctor has given permission. ? Get into the shower (with help if you need it) and sit on a chair. ? Support your injured arm with your strong arm and remove the cuff and collar sling. ? Have someone help you wash/dry yourself. Caring for the sling ? Handwash the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 Communication Support Strategies: active listening utilized simple statements used Taken 08/24/2025743 by Mal Nolen RN Sensory Stimulation Regulation: care clustered quiet environment promoted Problem: Mobility Impairment Goal: Optimal Mobility Outcome: Ongoing, Progressing Intervention: Optimize Mobility Flowsheets Taken 08/31/2025744 by Yumiko Mays, RN Activity Management: activity adjusted per tolerance Taken 08/25/2025 0130 by Aminata Jones RN Positioning/Transfer Devices: repositioning sheet pillows Problem: Skin Injury Risk Increased Goal: Skin Health and Integrity Outcome: Ongoing, Progressing Intervention: Optimize Skin Protection Flowsheets Taken 08/31/2025 0745 by Yumiko Mays, RN Activity Management: activity adjusted per tolerance Skin Protection: incontinence pads utilized Taken 08/30/20251999 by Bety Paz, RN Head of Bed (HOB) Positioning: HOB elevated Intervention: Promote and Optimize Oral Intake Flowsheets (Taken 08/31/2025 0745) Nutrition Interventions: food preferences provided * Significant Event - Talon Ramos MD - 08/31/2025 4:02 AM EDT ORTHOPAEDIC SURGERY INTERIM SUMMARY Neuropsych evaluation attempted 08/30 but not completed due to patient refusal. Given patient's new-onset cognitive/memory issues and loss of independence preceding recent RUE injury/current admission, risks of acute surgical intervention for R prox humerus fx outweigh benefits.Will plan for nonoperative treatment of R proximal humerus fx. Continue NWB RUE in C+C. Please page ORF with any questions: [phone] Talon Ramos Orthopaedic Surgery and Sports Medicine [facility] * Care Plan - Bety Paz RN - 08/31/2025 1:24 AM EDT Problem: Adult Inpatient Plan of Care Goal: Plan of Care Review Outcome: Ongoing, Progressing Flowsheets (Taken 08/30/2025 1052 by Yumiko Mays, RN) Progress: improving Plan of Care Reviewed With: patient Goal: Patient-Specific Goal (Individualized) Outcome: Ongoing, Progressing Flowsheets (Taken 08/30/20251999) Patient/Family-Specific Goals (Include Timeframe): patient will remain free from falls this shift Individualized Care Needs: safety Anxieties, Fears or Concerns: none stated Note: Patient will remain free from falls by calling for assistance and wearing non-slip socks while out of bed and ambulating Goal: Absence of Hospital-Acquired Illness or Injury Outcome: Ongoing, Progressing Goal: Optimal Comfort and Wellbeing Outcome: Ongoing, Progressing Problem: Fall Injury Risk Goal: Absence of Fall and Fall-Related Injury Outcome: Ongoing, Progressing Problem: Confusion Acute Goal: Optimal Cognitive Function Outcome: Ongoing, Progressing Problem: Mobility Impairment Goal: Optimal Mobility Outcome: Ongoing, Progressing Problem: Skin Injury Risk Increased Goal: Skin Health and Integrity Outcome: Ongoing, Progressing * Progress Notes - Shannen Navas, PhD - 08/30/2025 3:17 PM EDT Brigid Machado is a 65 year-old woman who was admitted to the hospital due a fall. She was referred by her treatment team for a decisional capacity evaluation. Ms. Machado was alert and angry. She was oriented to person. She then stated that we are treating her like shit and she wasn't going to answer any more questions. The capacity evaluation was not completed. * Assessment & Plan Note - Leroy Roa PA - 08/30/2025 1:50 PM EDT Associated Problem(s): Closed displaced fracture of surgical neck of right humerus R humeral neck fx S/p reduction at OSH Ortho following, appreciate recs NWB RUE Pending operative plan after completion of neuro-psych eval * Assessment & Plan Note - Leroy Roa PA - 08/30/2025 1:50 PM EDT Associated Problem(s): Fall from standing, initial encounter (Resolved 08/31/2025) Possible orthostatic fall Admit to SGT 6 Tertiary 08/24 * Assessment & Plan Note - Leroy Roa PA - 08/30/2025 1:50 PM EDT Associated Problem(s): Dizziness Questionable dizziness contributing to fall ECHO and Carotid U/S ordered d/t inability to obtain OSH records of previous exams Carotid US stable ECHO with HFrEF at 42%, known hx of heart failure * Assessment & Plan Note - Leroy Roa PA - 08/30/2025 1:50 PM EDT Associated Problem(s): Tendinopathy Calcific tendinopathy Incidental finding Follow up with PCP for further surveillance * Assessment & Plan Note - Leroy Roa PA - 08/30/2025 1:50 PM EDT Associated Problem(s): Primary hypertension Resume home meds as appropriate * Assessment & Plan Note - Leroy Roa PA - 08/30/2025 1:50 PM EDT Associated Problem(s): Diabetes mellitus SSI inpatient * Assessment & Plan Note - Leroy Roa PA - 08/30/2025 1:50 PM EDT Associated Problem(s): CKD (chronic kidney disease) Avoid nephrotoxins, monitor renal function * Assessment & Plan Note - Leroy Roa PA - 08/30/2025 1:50 PM EDT Associated Problem(s): Chronic heart failure with mildly reduced ejection fraction (HFmrEF, 41-49%) ECHO on 08/26: HFrEF at 42% Resume home medications as appropriate * Assessment & Plan Note - Leroy Roa PA - 08/30/2025 1:50 PM EDT Associated Problem(s): Delirium Per family, baseline status 08/26: UA negative for UTI Neuropsych eval pending for medical decision making capacity * Assessment & Plan Note - Leroy Roa PA - 08/30/2025 1:50 PM EDT Associated Problem(s): Anxiety and depression Cont home buspar and bupropion * Assessment & Plan Note - Leroy Roa PA - 08/30/2025 1:50 PM EDT Associated Problem(s): Overactive bladder Pt om vibegron at home, prescribe mirabegron here * Assessment & Plan Note - Leroy Roa PA - 08/30/2025 1:50 PM EDT Associated Problem(s): GERD (gastroesophageal reflux disease) Home: omeprazole Pantoprazole while inpatient * Progress Notes - Kandace Su, RN - 08/30/2025 12:45 PM EDT Per MD, patient medically to DC to [facility]. KATTY spoke with patient's daughter Latosha Banerjee ([phone]) and she is still agreeable to [facility]. However, she said her and patient wanted surgery on patient's arm done before rehab. QUINTIN Bojorquez checking with Ortho. KATTY spoke with [facility] liaison Sumi ([phone]) to update and and she is checking on bed and will call CM back JYOTSNA. * Progress Notes - Mile Shon R - 08/30/2025 12:24 PM EDT Physical Therapy Treatment Patient Name: Brigid Machado Today's Date: 08/30/2025 PT Discharge Recommendations: Subacute rehab Equipment Recommended: Defer to facility Subjective Patient agreeable to physical therapy. Participants in Care Family/Caregiver Present: No Presentation Oxygen Oxygen Therapy: None (Room air) Lines and Tubes Lines and Tubes: Intravenous access Pre-Session RN and patient gave consent for PT treatment session. Patient received Supine, Head of bed elevated, Bed alarm, Lines intact. RN agreeable to therapy session Post-Session Patient positioned for comfort and pressure relief at end of session, all needs met. Sitting in chair, Chair alarm, Lines intact, RN notified, Call light in reach, Self-releasing restraint alternative. Patient positioned for comfort with a pillow to support RUE and all needs met. RN req uesting self-releasing Sullivan strap be donned. RN aware of session details. RN notified Cuff and Collar mising hook. Orthoses: Cuff and Collar - Right Precautions Right Upper Extremity Weight Bearing Status : Non-weight bearing (in cuff and collar) Medical Precautions: Fall precautions Objective Pain Pain Score (0-10): not formally rated Location: right UE during mobility Intervention: position adjusted, pillow support provided, emotional support provided, and RN aware Delirium Screening RASS: Alert and calm Confusion Assessment Method-ICU (CAM-ICU/PCAM-ICU) Feature 3: Altered Level of Consciousness: Negative Therapeutic Activity (12 minutes) Patient participated in therapeutic activities with emphasis on progressing functional mobility, functional strength, and activity tolerance. HEAD BANQUET WAITRESS provided verbal and tactile cues to facilitate alternative movement patterns to improve technique due to increased pain and weakness associated with current mobility restrictions and functional deficits. Patient educated on safety awareness, energy conservation, getting up with nursing staff, and discharge recommendations. Increased time spent on roommanagement to ensure safety throughout. Refer to sections below for further details. Bed Mobility Bed Mobility Interventions: Educated patient on RUE NWB precaution.Provided cues for proper hand placement, BLE sequence off EOB, and trunk control upon sitting. Increased time required to complete bed mobility. Cuff and Collar donned. It was missing the hook to hold in place, RN notified. Cuff andCollar tied together to hold R UE at 90 degree elbow flexion. Bed Mobility Exam: Scooting/Bridging Level of [place]: Minimum assist (75% patient's effort) Physical/Nonphysical Assist: Verbal Cues, Minimal cues Assistive Device: Other (PANEL ASSEMBLER/LUE) Bed Mobility Exam: Supine to Sit Level of [place]: Minimum assist (75% patient's effort) Physical/Nonphysical Assist: Verbal Cues, Nonverbal cues (demo/gestures), HOB elevated, Moderate cues Assistive Device: Other (PANEL ASSEMBLER/LUE and trunk) Transfers Transfer Interventions: Provided cues for proper hand placement, NWB RUE, BLE set-up, forward trunkleans to initiate coming to stand, and safe descent to sit. Transfer Exam: Sit to stand Level of [place]: Minimum assist (75% patient's effort) Physical/Nonphysical Assist: Verbal Cues, Nonverbal cues (demo/gestures), Moderate cues Assistive Device: Hand held assist Transfer Exam: Stand to Sit Level of [place]: Minimum assist (75% patient's effort) Physical/Nonphysical Assist: Verbal Cues, Nonverbal cues (demo/gestures), Moderate cues Ambulation Device: Hand held assist (Left UE) Assistance: Minimum assistance, Moderate verbal cues, Minimal tactile cues Distance : 25 feet around room Ambulation Comments: Demonstrated slow pace, narrow RENAN, decrease foot clearance, lateral sway, andunsteadiness. Cues for upright posture, wider RENAN, foot clearance, and save navigation around room.Educated patient on safety awareness and calling nursing whenever ready to get up. Therapeutic Exercise (12 minutes) Patient participated in bilateral LE exercises while sitting unsupported EOB and sitting supported in chair to address ROM, strength, muscular endurance and activity tolerance and assist in overall functional mobility performance. Patient performed ankle pumps, quad sets, gluteal sets, hip abduction/adduction, hip flexion (marching), and long arc quads with AROM x 10 reps each. Patient provided with cueing for proper return of demonstration of exercises. Assessment Patient making steady progress with physical therapy. Patient able to improve ambulation distance compared to previous session. She still needs physical assistance due to poor balance and safety awareness. At this time, patient remains a fall risk and would not be safe to discharge home due to impaired balance, decrease functional strength, and unable to ambulate household distances independently. Prior to admission, patient was ambulating household distances independently without a device. Based on current presentation, patient would benefit from subacute rehab placement to continue improving on the following impairments: gait, functional mobility, functional strength, balance, and activity tolerance. She would continue to benefit from further skilled PT services during remainder of hospitalization to address deficits and promote maximal functional independence. PT Recommendations Discharge Destination: Subacute rehab Discharge Equipment: Defer to facility Plan Continue current plan of care. PT Goals PT GOAL DETAILS Goal Established Date Time Frame Goal Status PT Goal 1: Pt/family will be independent with HEP. 08/24/25 2 weeks PT Goal 2: Pt will transfer supine<>sit with Min A. 08/24/25 2 weeks PT Goal 3: Pt will transfer sit<>stand and bed<>chair with appropriate assistive deviceand Min A. 08/24/25 2 weeks PT Goal 4: Pt will ambulate 150ft with appropriate assistive device and Min A. 08/24/25 2 weeks PT Goal 5: Pt will ascend and descend 2 stairs with use of appropriate assistive device and Min A. 08/24/25 2 weeks Written by Shon Treadwell on 08/30/25 at 12:34 PM. * Care Plan - Davon, Yumiko Casanova RN - 08/30/2025 10:54 AM EDT Problem: Adult Inpatient Plan of Care Goal: Plan of Care Review Outcome: Ongoing, Progressing Flowsheets (Taken 08/30/2025 1052) Progress: improving Plan of Care Reviewed With: patient Goal: Patient-Specific Goal (Individualized) Outcome: Ongoing, Progressing Flowsheets (Taken 08/30/2025 1052) Patient/Family-Specific Goals (Include Timeframe): the patient will remain free of falls and injurythroughout the shift. Individualized Care Needs: safety Anxieties, Fears or Concerns: none verbalized Goal: Absence of Hospital-Acquired Illness or Injury Outcome: Ongoing, Progressing Intervention: Identify and Manage Fall Risk Flowsheets (Taken 08/30/2025 0500 by Yusef Branch CNA) Safety Promotion/Fall Prevention: activity supervised assistive device/personal items within reach clutter-free environment maintained fall prevention program maintained nonskid shoes/slippers when out of bed safety round/check completed Intervention: Prevent Skin Injury Flowsheets Taken 08/30/2025 105 by Yumiko Mays RN Body Position: weight shifting Taken 08/25/20252029 by Tonya Lane CNA Skin Protection: incontinence pads utilized Intervention: Prevent and Manage VTE (Venous Thromboembolism) Risk Flowsheets (Taken 08/30/2025 105) VTE Prevention/Management: bilateral foot pump device off SCDs (sequential compression devices) off medication Intervention: Prevent Infection Flowsheets (Taken 08/30/2025 105) Infection Prevention: environmental surveillance performed hand hygiene promoted single patient room provided Goal: Optimal Comfort and Wellbeing Outcome: Ongoing, Progressing Intervention: Provide Person-Centered Care Flowsheets (Taken 08/24/2025 0744 by Mal Nolen, THEODORE) Trust Relationship/Rapport: care explained choices provided emotional support provided empathic listening provided questions answered questions encouraged reassurance provided thoughts/feelings acknowledged Problem: Fall Injury Risk Goal: Absence of Fall and Fall-Related Injury Outcome: Ongoing, Progressing Intervention: Identify and Manage Contributors Flowsheets (Taken 08/25/2025 0130 by Aminata Jones, THEODORE) Medication Review/Management: medications reviewed high-risk medications identified Self-Care Promotion: independence encouraged Intervention: Promote Injury-Free Environment Flowsheets (Taken 08/30/2025 0500 by Yusef Branch CNA) Safety Promotion/Fall Prevention: activity supervised assistive device/personal items within reach clutter-free environment maintained fall prevention program maintained nonskid shoes/slippers when out of bed safety round/check completed Problem: Mobility Impairment Goal: Optimal Mobility Outcome: Ongoing, Progressing Intervention: Optimize Mobility Flowsheets Taken 08/29/20251999 by Bety Paz RN Activity Management: activity adjusted per tolerance activity encouraged Taken 08/29/2025 1400 by Vivian Keller RN Assistive Device Utilized: front wheel walker Taken 08/25/2025 0130 by Aminata Jones RN Positioning/Transfer Devices: repositioning sheet pillows Problem: Confusion Acute Goal: Optimal Cognitive Function Outcome: Ongoing, Progressing Intervention: Minimize Contributing Factors Flowsheets Taken 08/30/2025 1052 by Yumiko Mays RN Environment Familiarity/Consistency: daily routine followed Taken 08/26/2025 0833 by Estella Mueller RN Reorientation Measures: calendar in view clock in view glasses use encouraged Communication Support Strategies: active listening utilized Taken 08/24/2025 0744 by Mal Nolen RN Sensory Stimulation Regulation: care clustered quiet environment promoted * Progress Notes - Leroy Roa PA - 08/30/2025 9:35 AM EDT 08/30/25 Madyson Machado HPI Brigid Machado is a 65 y/o female with a PMHx of HFrEF, HTN, HLD, T2DM, and CKD who presents from OSH on 08/24 after fall from standing. Patient got up off the couch when she got dizzy and fell. Recent OSH workup for dizziness, unable to get records. Injuries include: R humerus neck fx. Interval: Patient sitting up in bed, NAD, VSS, no O2 req. Tolerating PO without issue. Denies any N/V. Last BM 08/29. BGs stable. Pain controlled. Mobilizing as able. A&O x 2. Bruising to R breast (yellow) and R elbow/arm (purple). Pt with good RUE radial pulse, ROM to R fingers, and sensation to R fingers intact. Discussed plan of care with patient. No further complaints/concerns/questions at this time. Edited by: Leroy Roa PA at 08/30/2025 0918 Relevant review of systems was obtained as able and is negative unless stated above in HPI. Vital signs: Vitals: 08/30/25 1200 BP: 137/80 Pulse: 86 Resp: Temp: 36.8 ??C (98.3 ??F) SpO2: 97% Physical Exam Vitals reviewed. HENT: Mouth/Throat: Mouth: Mucous membranes are moist. Eyes: Conjunctiva/sclera: Conjunctivae normal. Cardiovascular: Rate and Rhythm: Normal rate. Pulmonary: Effort: Pulmonary effort is normal. No respiratory distress. Musculoskeletal: General: Signs of injury (R shoulder) present. Skin: General: Skin is warm and dry. Capillary Refill: R radial pulse strong, hand warm, good color Findings: Bruising (R shoulder, R breast, R arm) present. Neurological: Mental Status: She is alert. She is disoriented. Comments: Alert and oriented to person and place but not year or president Psychiatric: Mood and Affect: Mood normal. Behavior: Behavior normal. No intake or output data in the 24 hours ending 08/30/25 1346 Lines/Drains/Tubes: Patient Lines/Drains/Airways Status Active Airway None Output by Drain (mL) 08/28/25 0700 - 08/28/25 1859 08/28/25 1900 - 08/29/25 0659 08/29/25 0700 - 08/29/25 1859 08/29/25 1900 - 08/30/25 0659 08/30/25 0700 - 08/30/25 1346 Patient has no LDAs of requested type attached. Labs in last 18 hours: CBC WBC ?? Hb ?? Plt ?? Hct ?? ANC ?? INR ??, PTT ??, Anti-Xa ?? MCV ?? BMP Na ?? Cl ?? BUN ?? Glu ?? K ?? Co2 ?? Cr ?? Ca ?? iCa ?? Mg ??, Phos ?? Lactate ?? LFT AST ?? AlkPhos ?? T Prot ?? ALK ?? Bili ?? Alb ?? D.Bili ?? Lab Trends: H/H Results from last 7 days Lab Units 08/24/25 0359 HEMOGLOBIN g/dL 11.0* HEMATOCRIT % 33.3* INR Cr Results from last 7 days Lab Units 08/24/25 0359 CREATININE mg/dL 0.86 Medications reviewed. Vital signs reviewed. Labs reviewed. Radiography reviewed. Assessment and Plan: Assessment & Plan Closed displaced fracture of surgical neck of right humerus Present on Admission: Yes R humeral neck fx S/p reduction at OSH Ortho following, appreciate recs NWB RUE Pending operative plan after completion of neuro-psych eval Fall from standing, initial encounter Present on Admission: Yes Possible orthostatic fall Admit to T 6 Tertiary 08/24 Dizziness Present on Admission: Yes Questionable dizziness contributing to fall ECHO and Carotid U/S ordered d/t inability to obtain OSH records of previous exams Carotid US stable ECHO with HFrEF at 42%, known hx of heart failure Tendinopathy Present on Admission: Yes Calcific tendinopathy Incidental finding Follow up with PCP for further surveillance Primary hypertension Present on Admission: Yes Resume home meds as appropriate Diabetes mellitus Present on Admission: Yes SSI inpatient CKD (chronic kidney disease) Present on Admission: Yes Avoid nephrotoxins, monitor renal function Chronic heart failure with mildly reduced ejection fraction (HFmrEF, 41-49%) Present on Admission: Yes ECHO on 08/26: HFrEF at 42% Resume home medications as appropriate Delirium Present on Admission: Yes Per family, baseline status 08/26: UA negative for UTI Neuropsych eval pending for medical decision making capacity Anxiety and depression Present on Admission: Unknown Cont home buspar and bupropion Overactive bladder Present on Admission: Unknown Pt om vibegron at home, prescribe mirabegron here GERD (gastroesophageal reflux disease) Present on Admission: Unknown Home: omeprazole Pantoprazole while inpatient Plan: - Neuropsych eval: pending - Ortho: pending definitive plan - Syncope evaluation: Carotid US unremarkable, ECHO confirmed HFrEF <42% - Bowel regimen - PT/OT Barrier: Ortho operative plans pending, Neuropsych eval Dispo: Subacute rehab Edited by: Leroy Roa PA at 08/30/2025 1346 QUINTIN Quigley * Care Plan - Bety Paz, RN - 08/29/2025 10:53 PM EDT Problem: Adult Inpatient Plan of Care Goal: Plan of Care Review Outcome: Ongoing, Progressing Flowsheets (Taken 08/29/2025 1129 by Vivian Keller, RN) Progress: improving Plan of Care Reviewed With: patient Goal: Patient-Specific Goal (Individualized) Outcome: Ongoing, Progressing Flowsheets (Taken 08/29/20251999) Patient/Family-Specific Goals (Include Timeframe): patient will remain free from falls this shift Individualized Care Needs: safety Anxieties, Fears or Concerns: none stated Note: Patient will remain free from falls this shift by calling for assistance, wearing non-slip socks and using her walker when out of bed and ambulating Goal: Absence of Hospital-Acquired Illness or Injury Outcome: Ongoing, Progressing Goal: Optimal Comfort and Wellbeing Outcome: Ongoing, Progressing Problem: Fall Injury Risk Goal: Absence of Fall and Fall-Related Injury Outcome: Ongoing, Progressing Problem: Confusion Acute Goal: Optimal Cognitive Function Outcome: Ongoing, Progressing Problem: Mobility Impairment Goal: Optimal Mobility Outcome: Ongoing, Progressing Problem: Skin Injury Risk Increased Goal: Skin Health and Integrity Outcome: Ongoing, Progressing * Progress Notes - Talon Ramos MD - 08/29/2025 12:46 PM EDT Orthopaedic Surgery Progress Note SUBJECTIVE: No acute events overnight. Discussed RUE injury and treatment options including risks/benefits of operative vs non-operative treatment. Unclear if patient has capacity to understand above discussion or make medical decisions, neuropsych eval pending. No family present at bedside this AM. Per RN, patient lived alone prior injury/current admission but states patient's daughter reported new-onset memory issuissues Doing well. Pain controlled. Tolerating diet. No nausea, vomiting, fevers or chills. OBJECTIVE: Vitals: 08/29/25 1233 BP: (!) 142/80 Pulse: 93 Resp: Temp: 36.6 ??C (97.9 ??F) SpO2: 97% Right upper extremity Skin intact. Ecchymoses present along anterior shoulder to mid-humerus. Motor: demonstrates contractility of EPL, FPL, FDS, IO Sensory: SILT M/U/R. Vascular: Hand WWP with CR <2 sec ASSESSMENT/PLAN: Madyson Machado is a 65 y.o. F w/ R prox humerus fx Per RN, patient's family reports new onset of significant memory/cognitive issues which limit activity/independence/etc. Patient's cognitive issues causing limited independence/function may suggest non-op treatment is most appropriate for R prox humerus fx. Will FU neuropsych eval and discuss with attending to determine final plan. Talon Ramos Dept. of Orthopaedic Surgery and Sports Medicine Orthopedic Reconstructiion ([facility]) Service Pager: [phone] Orthopedic Trauma ([facility]) Service Pager: [phone] Cosigned by Ricki Clark MD at 08/30/2025 3:31 PM EDT * Assessment & Plan Note - Stephen Lundberg APRN - 08/29/2025 11:29 AM EDT Associated Problem(s): Dizziness Questionable dizziness contributing to fall Patient recently s/p TTE and Carotid Duplex at OSH, work to obtain records ECHO and Carotid U/S ordered d/t inability to obtain OSH records Carotid US stable ECHO with HFrEF at 42%, known hx of heart failure * Assessment & Plan Note - Stephen Lundberg APRN - 08/29/2025 11:29 AM EDT Associated Problem(s): CKD (chronic kidney disease) Avoid nephrotoxins, monitor renal function * Care Plan - Vivian Keller RN - 08/29/2025 11:29 AM EDT Problem: Adult Inpatient Plan of Care Goal: Plan of Care Review Outcome: Ongoing, Progressing Flowsheets (Taken 08/29/2025 1129) Progress: improving Plan of Care Reviewed With: patient Goal: Patient-Specific Goal (Individualized) Outcome: Ongoing, Progressing Goal: Absence of Hospital-Acquired Illness or Injury Outcome: Ongoing, Progressing Goal: Optimal Comfort and Wellbeing Outcome: Ongoing, Progressing Problem: Fall Injury Risk Goal: Absence of Fall and Fall-Related Injury Outcome: Ongoing, Progressing Problem: Confusion Acute Goal: Optimal Cognitive Function Outcome: Ongoing,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 pending ORT recs. Pain regimen adjusted, oxy panel added. Per RN, patient having agitation this morning, PO Seroquel 50mg ordered. No further concerns per patient or nursing. Edited by: Jaida Shipman PA at 08/27/2025 1604 Relevant review of systems was obtained as able and is negative unless stated above in HPI. Vital signs: Vitals: 08/27/25 1514 BP: 127/72 Pulse: 90 Resp: Temp: 36.8 ??C (98.2 ??F) SpO2: 94% Physical Exam Vitals reviewed. Constitutional: Appearance: Normal appearance. She is not ill-appearing. Eyes: Conjunctiva/sclera: Conjunctivae normal. Cardiovascular: Rate and Rhythm: Normal rate. Pulmonary: Effort: Pulmonary effort is normal. No respiratory distress. Breath sounds: No wheezing. Abdominal: General: Abdomen is flat. Palpations: Abdomen is soft. Musculoskeletal: General: Tenderness (R shoulder) and signs of injury (R shoulder) present. Comments: R arm in cuff & collar Normal sensation and strength. Skin: General: Skin is warm. Findings: Bruising (Diffuse lower extemity) present. Neurological: Mental Status: She is alert. Mental status is at baseline. She is disoriented. Sensory: No sensory deficit. Psychiatric: Behavior: Behavior is agitated. Cognition and Memory: Cognition is impaired. Memory is impaired. She exhibits impaired recent memory. Judgment: Judgment is inappropriate. No intake or output data in the 24 hours ending 08/27/25 1604 Lines/Drains/Tubes: Patient Lines/Drains/Airways Status Active Airway None Output by Drain (mL) 08/25/25 0700 - 08/25/25 1859 08/25/25 1900 - 08/26/25 0659 08/26/25 0700 - 08/26/25 1859 08/26/25 1900 - 08/27/25 0659 08/27/25 0700 - 08/27/25 1604 Patient has no LDAs of requested type attached. Labs in last 18 hours: CBC WBC ?? Hb ?? Plt ?? Hct ?? ANC ?? INR ??, PTT ??, Anti-Xa ?? MCV ?? BMP Na ?? Cl ?? BUN ?? Glu ?? K ?? Co2 ?? Cr ?? Ca ?? iCa ?? Mg ??, Phos ?? Lactate ?? LFT AST ?? AlkPhos ?? T Prot ?? ALK ?? Bili ?? Alb ?? D.Bili ?? Lab Trends: H/H Results from last 7 days Lab Units 08/24/25 0359 HEMOGLOBIN g/dL 11.0* HEMATOCRIT % 33.3* INR Cr Results from last 7 days Lab Units 08/24/25 0359 CREATININE mg/dL 0.86 Medications reviewed. Vital signs reviewed. Labs reviewed. Radiography reviewed. Assessment and Plan: Assessment & Plan Closed displaced fracture of surgical neck of right humerus Present on Admission: Yes R humeral neck fx S/p reduction at OSH Ortho following, appreciate recs [facility] NWB RUE F/u x-rays on 08/27, operative plans pending Fall from standing, initial encounter Present on Admission: Yes Possible orthostatic fall Admit to T 6 Tertiary 08/24 Dizziness Present on Admission: Yes Questionable dizziness contributing to fall Patient recently s/p TTE and Carotid Duplex at OSH, work to obtain records ECHO and carotid U/S ordered d/t inability to obtain OSH records Carotid US stable Echo results: HFrEF at 42%, known hx of heart failure Tendinopathy Present on Admission: Unknown Calcific tendinopathy Incidental finding Follow up with PCP for further surveillance Hypertension Present on Admission: Unknown Resume home meds as appropriate Diabetes mellitus Present on Admission: Unknown Resume home meds CKD (chronic kidney disease) Present on Admission: Unknown CTM CHF (congestive heart failure) Present on Admission: Unknown Resume home meds as appropriate Echo on 08/26: HFrEF at 42% Delirium Present on Admission: Unknown Per family, baseline 08/26: UA negative for UTI Neuropsych eval ordered for medical decision making capacity Non-Hospital Problems Pelvic mass Overview Addendum 08/15/2023 3:02 PM by Marlen Pop MD Pelvic mass - PMB and pelvic pain prompted evaluation - Grossly abnormal office exam - US 06/27/2023 OSH: large solid pelvic mass 11.8 x 7.5 x 10.7 cm, left ovary normal, right ovary not seen - CT 07/01/2023 OSH: multiple masses continuous with uterus observed, no adenopathy or ascites - Initial consult [facility] 07/15/2023 - US 07/15/2023: Fibroids noted, complex Nabothian cysts, 1.1 cm endometrial stripe, left ovary 8.1 x 5.7 x 11.2 cm solid/cystic areas, NM 8 - 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 Thickened endometrium PMB (postmenopausal bleeding) Plan: - Neuropsych eval ordered - one time dose of Seroquel 50mg ordered - Ortho: non-op, interpretation of repeat x-ray on 08/27 and plans pending - Syncope evaluation: carotid duplex unremarkable, echo confirmed HFrEF <42% - Bowel regimen - PT/OT Barrier: Ortho operative plans pending, neuropsych eval Dispo: Subacute rehab Edited by: Jaida Shipman PA at 08/27/2025 1602 QUINTIN Redman * Progress Notes - Danita Dotynifer Thad - 08/27/2025 10:30 AM EDT Physical Therapy Treatment Patient Name: Brigid Machado Today's Date: 08/27/2025 PT Discharge Recommendations: Subacute rehab Equipment Recommended: Defer to facility Total Session Time: 53 minutes Subjective Pt was agreeable to therapy session. Pt oriented to person, hospital, year, as well as month with increased time. Participants in Care Family/Caregiver Present: No Triage Technician: Not Applicable Presentation Oxygen Therapy: None (Room air) Lines and Tubes: Intravenous access Pre-Session: Supine, Head of bed elevated, Bed alarm, Lines intact Pre-Session Comments: RN agreeable to therapy session Post-Session: Supine, Head of bed elevated, RN notified, Lines intact, Bed alarm (zone 1, 2, 3), Call light in reach Post-Session Comments: Pt positioned for comfort with all needs met Orthoses: Cuff and Collar - Right Precautions Right Upper Extremity Weight Bearing Status : Non-weight bearing (in cuff and collar) Medical Precautions: Fall precautions Objective Pain Pt reported pain in right shoulder, not rated. RN aware. Cuff and collar re- adjusted with improved fit reported. Delirium Screening RASS: Alert and calm Confusion Assessment Method-ICU (CAM-ICU/PCAM-ICU) Feature 3: Altered Level of Consciousness: Negative Bed Mobility Bed Mobility Exam: Scooting/Bridging Level of [place]: Minimum assist (75% patient's effort) (seated scooting to EOB) Physical/Nonphysical Assist: Verbal Cues, Minimal cues Assistive Device: Bed rails (L UE; drawsheet) Bed Mobility Exam: Supine to Sit Level of [place]: Minimum assist (75% patient's effort) Physical/Nonphysical Assist: Verbal Cues, Nonverbal cues (demo/gestures), HOB elevated, Additional assist utilized for safety, Moderate cues Assistive Device: Bed rails (L UE) Bed Mobility Exam: Sit to Supine Level of [place]: Minimum assist (75% patient's effort) Physical/Nonphysical Assist: Verbal Cues, Nonverbal cues (demo/gestures), Additional assist utilized for safety, Moderate cues Assistive Device: Bed rails, Other (L UE) Transfers Transfer Exam: Sit to stand Level of [place]: Minimum assist (75% patient's effort) Physical/Nonphysical Assist: Verbal Cues, Nonverbal cues (demo/gestures), Additional assist utilized for safety, Moderate cues Assistive Device: Hand held assist (LUE) Transfer Exam: Stand to Sit Level of [place]: Minimum assist (75% patient's effort) Physical/Nonphysical Assist: Verbal Cues, Nonverbal cues (demo/gestures), Additional assist utilized for safety, Moderate cues Assistive Device: Hand held assist (LUE) Transfer Exam: Bed to Chair/Chair to Bed Level of [place]: Minimum assist (75% patient's effort) Physical/Nonphysical Assist: Verbal Cues, Moderate cues, Nonverbal cues (demo/gestures), Additionalassist utilized for safety Type of Transfer: Sidesteps Assistive Device: Hand held assist (LUE) Toilet Transfer Level of [place]: Minimum assist (75% patient's effort) Physical/Nonphysical Assist: Verbal Cues, Nonverbal cues (demo/gestures), Moderate cues, Additionalassist utilized for safety Type of Transfer: Ambulation, To toilet Assistive Device: Hand held assist (L UE) Ambulation Device: Hand held assist (L UE) Assistance: Minimum assistance, Moderate verbal cues, Minimal tactile cues, Additional assist utilized for safety Distance : 15' x 2 reps (to and from toilet) Ambulation Comments: Pt ambulated with decreased yoni, decreased bilateral LE step length and clearance, increased postural sway, wide base of support, ipsilateral trunk lean with stance phase, and downward gaze. Pt required cues to improve sequencing of gait, navigation, balance, and to avoid hitting R shoulder on doorways. Therapeutic Activity (53 minutes) Pt participated in bed mobility, transfers, edge of bed sitting, and ambulation to improve independence with functional mobility. See respective sections for more information. Cuff and collar re-adjusted due to ill fit with pt re-educated on need for wear. Pt required increased time as well as cuesto improve initiation of mobility. Pt required cues to sequence LEs to the edge of bed, utilize L UE on bedrail, and pull torso upright. No dizziness reported with positional change. Pt required verbal cues to improve L hand placement, foot placement, body mechanics, and safety to stand and transfer to the chair. Pt performed unsupported sitting while participating in feeding, however she required frequent supported sitting rest breaks due to impaired core strength. Pt required cues for L hand placement as well as Min A to perform a forward lean. Cues needed to improve L hand placement, feet placement, and safety with toilet transfer. Increased time needed for urination and hygiene. Pt required cues to lean onto side and sequence LEs into bed when returning to supine. Min assist needed toadvance B LEs into bed. Pt re-educated on PT plan of care, discharge recommendations, and need for further mobilization with nursing staff. Assessment Pt put forth good effort during session with improved R shoulder pain and confusion noted. Pt continues to require minimal assistance with mobility, however pt was able to progress to participate in ambulation this session. Pt is limited in independence due to impaired balance, endurance, strength,cognition, pain, and weight bearing restrictions. Pt is a high fall risk and is unsafe to return home as she lives alone and does not have assistance available. Recommendations for subacute rehab remain appropriate to assist pt in regaining independence with mobility and to facilitate a safe transition home. Pt will continue to benefit from skilled PT to improve balance, strength, and functional mobility. PT Recommendations Discharge Destination: Subacute rehab Discharge Equipment: Defer to facility Plan Continue PT plan of care, improve balance and ambulation distance PT Goals PT GOAL DETAILS Goal Established Date Time Frame Goal Status PT Goal 1: Pt/family will be independent with HEP. 08/24/25 2 weeks PT Goal 2: Pt will transfer supine<>sit with Min A. 08/24/25 2 weeks PT Goal 3: Pt will transfer sit<>stand and bed<>chair with appropriate assistive deviceand Min A. 08/24/25 2 weeks PT Goal 4: Pt will ambulate 150ft with appropriate assistive device and Min A. 08/24/25 2 weeks PT Goal 5: Pt will ascend and descend 2 stairs with use of appropriate assistive device and Min A. 08/24/25 2 weeks Written by Grtea Doty on 08/27/25 at 3:15 PM. * Progress Notes - Concepcion Pagan - 08/27/2025 10:29 AM EDT Occupational Therapy Treatment Patient Name: Brigid Machado Today's Date: 08/27/2025 OT Discharge Recommendations: Subacute rehab Equipment Recommended: Defer to facility Total treatment time: 54 minutes Subjective Pt agreeable to participate in OT session. Participants in Care Family/Caregiver Present: No Triage Technician: Not Applicable Presentation Oxygen Therapy: None (Room air) Lines and Tubes: Intravenous access Pre-Session: Supine, Head of bed elevated, Bed alarm, Lines intact Pre-Session Comments: RN agreeable to therapy session Post-Session: Supine, Head of bed elevated, RN notified, Lines intact, Bed alarm (zone 1, 2, 3), Call light in reach Post-Session Comments: Pt positioned for comfort with all needs met Orthoses: Cuff and Collar - Right Precautions Right Upper Extremity Weight Bearing Status : Non-weight bearing (in cuff and collar) Medical Precautions: Fall precautions Objective Pain Pt reports RUE pain and rib pain this date. Pt positioned for increased comfort with pillow supports at close of session. Delirium Screening RASS: Alert and calm Confusion Assessment Method-ICU (CAM-ICU/PCAM-ICU) Feature 3: Altered Level of Consciousness: Negative Cognition Cognition Overall Cognitive Status: Impaired Arousal/Alertness: Appropriate responses to stimuli Mood/Behavior: Alert, Confused Single Step Commands: With increased time, With repetition, Consistently Multi-Step Commands: With increased time, With repetition Method of Communication: Verbal Bed Mobility Bed Mobility Exam: Scooting/Bridging Level of [place]: Minimum assist (75% patient's effort) (seated scooting to EOB) Physical/Nonphysical Assist: Verbal Cues, Minimal cues Assistive Device: Bed rails, Other (drawsheet) Bed Mobility Exam: Supine to Sit Level of [place]: Minimum assist (75% patient's effort) Physical/Nonphysical Assist: Verbal Cues, Nonverbal cues (demo/gestures), HOB elevated, Additional assist utilized for safety, Moderate cues Assistive Device: Bed rails Bed Mobility Exam: Sit to Supine Level of [place]: Minimum assist (75% patient's effort) Physical/Nonphysical Assist: Verbal Cues, Nonverbal cues (demo/gestures), Additional assist utilized for safety, Moderate cues Assistive Device: Bed rails, Other (LE management) Transfers Transfer Exam: Sit to stand Level of [place]: Minimum assist (75% patient's effort) Physical/Nonphysical Assist: Verbal Cues, Nonverbal cues (demo/gestures), Additional assist utilized for safety, Moderate cues Assistive Device: Hand held assist (LUE) Transfer Exam: Stand to Sit Level of [place]: Minimum assist (75% patient's effort) Physical/Nonphysical Assist: Verbal Cues, Nonverbal cues (demo/gestures), Additional assist utilized for safety, Moderate cues Assistive Device: (LUE) Transfer Exam: Bed to Chair/Chair to Bed Level of [place]: Minimum assist (75% patient's effort) Physical/Nonphysical Assist: Verbal Cues, Moderate cues, Nonverbal cues (demo/gestures), Additionalassist utilized for safety Type of Transfer: Sidesteps Assistive Device: Hand held assist (LUE) Toilet Transfer Level of [place]: Minimum assist (75% patient's effort) Physical/Nonphysical Assist: Verbal Cues, Moderate cues, Nonverbal cues (demo/gestures), Additionalassist utilized for safety Type of Transfer: Ambulation Assistive Device: Hand held assist (LUE) Self-Care Interventions Self Care/Home Management (ADLs) Time Entry: 54 Pt benefited from skilled occupational therapy interventions including: MOD-MAX verbal and tactile cues to facilitate improved body mechanics and safety during functional tasks Provision of increased time frames to support optimal level of pt participation Task/activity modification with grading as needed to achieve safety while also providing appropriate functional challenge Skilled organization and management of medical lines/tubes to reduce fall risk with mobility aspects of ADLs Environmental set-up to ensure safety and accessibility to all needed areas of treatment space Feeding Feeding Level of Assistance: Setup Feeding Where Assessed: Chair Level Feeding Interventions: Pt set-up for breakfast (therapist opening drink containers and cutting up food) this date. Increased time required to complete self-feeding in preparation for ADL performance. Lower Extremity Dressing Adult Briefs Level of Assistance: Maximum assistance LE Dressing Interventions: Pt donning brief at toilet level this date, requiring max assist to donnover feet and above knee level. Pt additionally requiring assist to pull brief over bottom and adjust straps. Toileting Toileting Interventions: In preparation for functional demands of toileting, pt completed low surface sit>stand transfers x 3 trials in order to simulate functional toilet transfer. Pt completed trials with min assist x 2 using LUE PANEL ASSEMBLER. Pt additionally completed functional bed> bed side chairtransfer in order to simulate bed > BSC transfer. Pt completed transfer with min assist x 2. Verb al and tactile cues provided for BLE management and sequencing. Pt additionally performed functional mobility to/from bathroom and functional toilet transfer with min assist. Pt perform shira-care/hygiene with CGA in unsupported on toilet and clothing management with maximal assist (gown management and donning brief). Health Management Health Management interventions: Therapist facilitated functional bed mobility in preparation for OOB ADL engagement. Verbal and tactile cues provided to facilitate log roll technique in order to aidin independence for bed mobility. Pt completed supine<>sit with min assist x 2 for trunk control and BLE management. Household/Community Re-entry: Patient challenged to perform functional mobility within room and bathroom to address functional endurance, environmental navigation, and prepare patient for community re-entry and navigate household distances. Pt navigating through doorways, along straight paths, around turns, and around large obstacles with min assist x 2 using LUE PANEL ASSEMBLER. Therapist provided min-mod verbal cues for sequencing, environmental navigation, postural control, pacing, and weight shifting to improve dynamic balance and safety awareness. Assessment Pt is currently not safe to return home, even with home health services, due to the following OT-related functional limitations and safety concerns: The patient demonstrates poor static and dynamic balance, resulting in frequent near-falls or actual falls during ADLs, transfers, and mobility tasks. Supervision or hands-on assistance is required for essential self-care tasks (e.g., bathing, toileting, dressing), which exceeds the level of support typically available through intermittent home health visits. The patient lacks the cognitive and/or physical capacity to safely compensate for these deficits without continuous skilled oversight and environmental control, which is not feasible in the home setting. The home environment lacks the necessary adaptive equipment or 24/7 supervision, placing the patient at high risk for injury. The patient requires daily, skilled OT interventions to restore ADL independence, improve safety awareness, and establish safe routines -- services that cannot be delivered at the intensity or frequency through home health. Given these factors, subacute rehabilitation is the most appropriate discharge option to ensure patient safety, prevent further injury or readmission, and support functional recovery through comprehensive, daily OT services in a structured environment. OT Recommendations Discharge Destination: Subacute rehab Discharge Equipment: Defer to facility Plan Continue with established OT plan of care 2-5x/week to progress towards functional OT goals. Goals OT GOAL DETAILS Goal Established Date Time Frame Goal Status OT Goal 1: Pt will perform functional STS transfer in preparation for functional toilet transfer with CGA. 08/24/25 2 weeks OT Goal 2: Pt will perform functional bed>chair / bed>BSC transfers with min assist. 08/24/25 2 weeks OT Goal 3: Pt will perform sequential grooming routine in unsupported sitting with CGA. 08/24/25 2 weeks OT Goal 4: Pt will follow 100% single-step commands for 2/2 tx sessions. 08/24/25 2 weeks Written by Concepcion Pagan on 08/27/25 at 2:27 PM. * Care Plan - Nova Dickson - 08/26/2025 10:21 PM EDT Problem: Adult Inpatient Plan of Care Goal: Absence of Hospital-Acquired Illness or Injury Outcome: Ongoing, Progressing Problem: Adult Inpatient Plan of Care Goal: Optimal Comfort and Wellbeing Outcome: Ongoing, Progressing Problem: Fall Injury Risk Goal: Absence of Fall and Fall-Related Injury Outcome: Ongoing, Progressing Problem: Confusion Acute Goal: Optimal Cognitive Function Outcome: Ongoing, Progressing * Assessment & Plan Note - Jaida Shipman PA - 08/26/2025 9:05 AM EDT Associated Problem(s): Closed displaced fracture of surgical neck of right humerus R humeral neck fx S/p reduction at OSH Ortho following, appreciate recs [facility] RUE F/u x-rays on 08/28, operative plans pending * Assessment & Plan Note - Jaida Shipman PA - 08/26/2025 9:05 AM EDT Associated Problem(s): Fall from standing, initial encounter (Resolved 08/31/2025) Possible orthostatic fall Admit to SGT 6 Tertiary 08/24 * Assessment & Plan Note - Jaida Shipman PA - 08/26/2025 9:05 AM EDT Associated Problem(s): Dizziness Questionable dizziness contributing to fall Patient recently s/p TTE and Carotid Duplex at OSH, work to obtain records ECHO and carotid U/S ordered d/t inability to obtain OSH records, results pending * Assessment & Plan Note - Jaida Shipman PA - 08/26/2025 9:05 AM EDT Associated Problem(s): Tendinopathy Calcific tendinopathy Incidental finding Follow up with PCP for further surveillance * Assessment & Plan Note - Jaida Shipman PA - 08/26/2025 9:05 AM EDT Associated Problem(s): Primary hypertension Resume home meds as appropriate * Assessment & Plan Note - Jaida Shipman PA - 08/26/2025 9:05 AM EDT Associated Problem(s): Diabetes mellitus Resume home meds * Assessment & Plan Note - Jaida Shipman PA - 08/26/2025 9:05 AM EDT Associated Problem(s): CKD (chronic kidney disease) CTM * Assessment & Plan Note - Jaida Shipman PA - 08/26/2025 9:05 AM EDT Associated Problem(s): Chronic heart failure with mildly reduced ejection fraction (HFmrEF, 41-49%) Resume home meds as appropriate * Progress Notes - Jaida Shipman PA - 08/26/2025 9:00 AM EDT 08/26/25 Samiradelvinharriett Machado HPI Brigid Machado is a 65 y/o female with a PMHx of HTN, DM, HLD, CKD, CHF who presents from OSH on 08/24 after fall from standing. Patient got up off the couch when she got dizzy and fell. Had recent workup for dizziness, unable to get records. Injuries include: R humerus neck fx Interval: Patient sitting up in chair alert. VSS. NAD. NAEON. On RA, no SOA. Tolerating PO diet, noN/V, abd pain. Last BM 08/28. Mobilizing as able, right arm in cuff and collar. Pain well controlled. Discussed plan of care with patient, who is in understanding. No further concerns per patient or nursing. Afternoon update: Patient expressed extreme agitation regarding care she is receiving in the hospital. Spoke to the patient at bedside, currently oriented. However, patient did not remember that myself or orthopedics spoke to her during morning rounds. Advised patient that she was seen by both specialties. Also discussed autonomy with the patient, including her ability to accept or refuse medications and care in the hospital. Spoke with daughter over the phone to update her on the situation andassess baseline for patient. She states that these episodes of memory loss and agitation are baseline for her, however she does not have any formal diagnosis of dementia in the outpatient setting. Edited by: Jaida Shipman PA at 08/26/2025 1961 Relevant review of systems was obtained as able and is negative unless stated above in HPI. Vital signs: Vitals: 08/26/25 1520 BP: 128/74 Pulse: 94 Resp: 17 Temp: 36.8 ??C (98.3 ??F) SpO2: 96% Physical Exam Vitals reviewed. Constitutional: Appearance: Normal appearance. She is not ill-appearing. Eyes: Conjunctiva/sclera: Conjunctivae normal. Cardiovascular: Rate and Rhythm: Normal rate. Pulmonary: Effort: Pulmonary effort is normal. No respiratory distress. Breath sounds: No wheezing. Abdominal: General: Abdomen is flat. Palpations: Abdomen is soft. Musculoskeletal: General: Tenderness (R shoulder) and signs of injury (R shoulder) present. Comments: R arm in cuff & collar Normal sensation and strength. Skin: General: Skin is warm. Findings: Bruising (Diffuse lower extemity) present. Neurological: Mental Status: She is alert. Mental status is at baseline. Sensory: No sensory deficit. Psychiatric: Behavior: Behavior normal. Thought Content: Thought content normal. Intake/Output Summary (Last 24 hours) at 08/26/2025 1641 Last data filed at 08/26/2025 0000 Gross per 24 hour Intake -- Output 400 ml Net -400 ml Lines/Drains/Tubes: Patient Lines/Drains/Airways Status Active Airway None Output by Drain (mL) 08/24/25 0700 - 08/24/25 1859 08/24/25 1900 - 08/25/25 0659 08/25/25 0700 - 08/25/25 1859 08/25/25 1900 - 08/26/25 0659 08/26/25 0700 - 08/26/25 1641 Requested LDAs do not have output data documented. Labs in last 18 hours: CBC WBC ?? Hb ?? Plt ?? Hct ?? ANC ?? INR ??, PTT ??, Anti-Xa ?? MCV ?? BMP Na ?? Cl ?? BUN ?? Glu ?? K ?? Co2 ?? Cr ?? Ca ?? iCa ?? Mg ??, Phos ?? Lactate ?? LFT AST ?? AlkPhos ?? T Prot ?? ALK ?? Bili ?? Alb ?? D.Bili ?? Lab Trends: H/H Results from last 7 days Lab Units 08/24/25 0359 HEMOGLOBIN g/dL 11.0* HEMATOCRIT % 33.3* INR Cr Results from last 7 days Lab Units 08/24/25 0359 CREATININE mg/dL 0.86 Medications reviewed. Vital signs reviewed. Labs reviewed. Radiography reviewed. Assessment and Plan: Assessment & Plan Closed displaced fracture of surgical neck of right humerus Present on Admission: Yes R humeral neck fx S/p reduction at OSH Ortho following, appreciate recs MMPC NWB RUE F/u x-rays on 08/28, operative plans pending Fall from standing, initial encounter Present on Admission: Yes Possible orthostatic fall Admit to [facility] 08/24 Dizziness Present on Admission: Yes Questionable dizziness contributing to fall Patient recently s/p TTE and Carotid Duplex at OSH, work to obtain records ECHO and carotid U/S ordered d/t inability to obtain OSH records, results pending Tendinopathy Present on Admission: Unknown Calcific tendinopathy Incidental finding Follow up with PCP for further surveillance Hypertension Present on Admission: Unknown Resume home meds as appropriate Diabetes mellitus Present on Admission: Unknown Resume home meds CKD (chronic kidney disease) Present on Admission: Unknown CTM CHF (congestive heart failure) Present on Admission: Unknown Resume home meds as appropriate Non-Hospital Problems Pelvic mass Overview Addendum 08/15/2023 3:02 PM by Marlen Pop MD Pelvic mass - PMB and pelvic pain prompted evaluation - Grossly abnormal office exam - US 06/27/2023 OSH: large solid pelvic mass 11.8 x 7.5 x 10.7 cm, left ovary normal, right ovary not seen - CT 07/01/2023 OSH: multiple masses continuous with uterus observed, no adenopathy or ascites - Initial consult [facility] 07/15/2023 - US 07/15/2023: Fibroids noted, complex Nabothian cysts, 1.1 cm endometrial stripe, left ovary 8.1 x 5.7 x 11.2 cm solid/cystic areas, NM 8 - 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 Thickened endometrium PMB (postmenopausal bleeding) Plan: - Ortho: non-op, ortho to repeat x-rays on 08/28 - Syncope: carotid duplex unremarkable, echo confirmed HFrEF <42% - Bowel regimen - PT/OT Barrier: Ortho xray on 08/28 Dispo: Subacute rehab Edited by: Jaida Shipman PA at 08/26/2025 1631 QUINTIN Redman * Care Plan - Estella Mueller RN - 08/26/2025 8:34 AM EDT Problem: Adult Inpatient Plan of Care Goal: Plan of Care Review Outcome: Ongoing, Progressing Flowsheets (Taken 08/25/2025 0130 by Aminata Jones RN) Progress: improving Plan of Care Reviewed With: patient Goal: Patient-Specific Goal (Individualized) Outcome: Ongoing, Progressing Flowsheets (Taken 08/26/2025 0800) Patient/Family-Specific Goals (Include Timeframe): patient will remain from fall during this shift Individualized Care Needs: safety Goal: Absence of Hospital-Acquired Illness or Injury Outcome: Ongoing, Progressing Intervention: Identify and Manage Fall Risk Flowsheets (Taken 08/26/2025 0800) Safety Promotion/Fall Prevention: activity supervised assistive device/personal items within reach clutter-free environment maintained fall prevention program maintained lighting adjusted mobility aid in reach nonskid shoes/slippers when out of bed room organization consistent safety round/check completed * Progress Notes - Evans Russo MD - 08/26/2025 3:49 AM EDT Orthopaedic Surgery Progress Note 08/26/25 Subjective: NAEO. Doing well. Pain controlled. Tolerating oral intake. Denies nausea, vomiting, fevers, or chills. Patient has no stated questions or concerns currently. We discussed repeat x-rays in 2 days. Objective: Physical Examination: Resting comfortably in bed No acute distress Non labored breathing Peripheral perfusion intact Focused Musculoskeletal Examination: Right Upper Extremity Inspection: Tender to palpation proximal arm. Motor: Motor intact to wrist flexion/extension, EPL, FPL, IO, EDC, FDP Sensation: SILT all terminal nerve distributions Vascular: Palpable radial pulse. Extremity WWP, cap refill < 2s Orthopedic tertiary exam completed today with low concern for additional bony injury other than those previously documented. Assessment & Plan: Madyson Machado is a 65 y.o. female patient with the following orthopedic injuries: R prox humerus fx - PT/OT recommendations: subacute rehab Plan: repeat XR upright AP Right shoulder on 08/28 to assess Orthopedic tertiary exam completed today with low concern for additional bony injury other than those previously documented. Mobility Orders Mobility Protocol: Ortho/Trauma/Spine Mobility Guidelines Spinal Precautions: No cranial, cervical or thoracolumbar spinal precautions necessary Extremity Precautions: Extremity Precautions Extremity: RUE Mobility Restrictions (RUE): Non-weight bear (NWB) Type of Brace (RUE): Cuff & Collar Cuff & Collar Wear Time Protocol: Remove for skin inspection and hygiene Other mobility precautions: Other precautions Other mobility precautions: Other Other: Keep HOB 30 Degrees, OK to Reverse Trendelenburg. Evans Russo MD Orthopaedic Surgery PGY1 [facility] Personal Pager: [phone] Orthopaedic Trauma Service Pager: [phone] Orthopaedic Recon/Spine/Foot and Ankle Service Pager: [phone] Cosigned by Ricki Clark MD at 08/26/2025 9:09 AM EDT * Care Plan - Nova Dickson - 08/26/2025 12:13 AM EDT Problem: Adult Inpatient Plan of Care Goal: Optimal Comfort and Wellbeing Outcome: Ongoing, Progressing Problem: Adult Inpatient Plan of Care Goal: Absence of Hospital-Acquired Illness or Injury Outcome: Ongoing, Progressing Problem: Fall Injury Risk Goal: Absence of Fall and Fall-Related Injury Outcome: Ongoing, Progressing Problem: Confusion Acute Goal: Optimal Cognitive Function Outcome: Ongoing, Progressing * Assessment & Plan Note - Jaida Shipman PA - 08/25/2025 1:56 PM EDT Associated Problem(s): Primary hypertension Resume home meds as appropriate * Assessment & Plan Note - Jaida Shipman PA - 08/25/2025 1:56 PM EDT Associated Problem(s): Diabetes mellitus Resume home meds * Assessment & Plan Note - Jaida Shipman PA - 08/25/2025 1:56 PM EDT Associated Problem(s): Chronic heart failure with mildly reduced ejection fraction (HFmrEF, 41-49%) Resume home meds as appropriate * Assessment & Plan Note - Jaida Shipman PA - 08/25/2025 1:56 PM EDT Associated Problem(s): CKD (chronic kidney disease) CTM * Assessment & Plan Note - Jaida Shipman PA - 08/25/2025 1:51 PM EDT Associated Problem(s): Tendinopathy Calcific tendinopathy Incidental finding Follow up with PCP for further surveillance * Assessment & Plan Note - Jaida Shipman PA - 08/25/2025 1:51 PM EDT Associated Problem(s): Closed displaced fracture of surgical neck of right humerus R humeral neck fx S/p reduction at OSH Ortho following, appreciate recs [facility] NWB RUE, anticipate non-op * Assessment & Plan Note - Jaida Shipman PA - 08/25/2025 1:51 PM EDT Associated Problem(s): Dizziness Questionable dizziness contributing to fall Patient recently s/p TTE and Carotid Duplex at OSH, work to obtain records ECHO and carotid U/S ordered d/t inability to obtain OSH records, results pending * Assessment & Plan Note - Jaida Shipman PA - 08/25/2025 1:51 PM EDT Associated Problem(s): Fall from standing, initial encounter (Resolved 08/31/2025) Possible orthostatic fall Admit to [facility] Tertiary 08/24 * Progress Notes - Jaida Shipman PA - 08/25/2025 1:41 PM EDT TRAUMA SURGERY TERTIARY SURVEY 08/25/25 Madyson RICHARDS Brigid Machado is a 65 y/o female with a PMHx of HTN, DM, HLD, CKD, CHF who presents from OSH on 08/24 after fall from standing. Patient got up off the couch when she got dizzy and fell. Had recent workup for dizziness, unable to get records. Injuries include: R humerus neck fx Interval: Patient sitting up in bed A&O. VSS. NAD. NAEON. On RA, no SOA. Tolerating PO diet, noN/V, abd pain. Last BM [facility]. Mobilizing as able. Pain well controlled. Denies alcohol, tobacco or illicit drug use. Discussed plan of care with patient, who is in understanding. No further concerns per patient or nursing. Edited by: Jaida Shipman PA at 08/25/2025 1341 Are there limits on this patient's care or advanced wishes/documents available? No Past Medical History: Active Ambulatory Problems Diagnosis Date Noted Pelvic mass 07/15/2023 Thickened endometrium 07/15/2023 PMB (postmenopausal bleeding) 07/15/2023 Resolved Ambulatory Problems Diagnosis Date Noted No Resolved Ambulatory Problems Past Medical History: Diagnosis Date Adverse effect of anesthesia Anxiety Arthritis Dental disease Depression Diabetes ([facility]) HL (hearing loss) Hyperlipidemia Hypertension Joint pain Motion sickness Sleep apnea Past Surgical History: Surgical History[1] Home Medications: Prior to Admission medications Medication Sig Start Date End Date Taking? Authorizing Provider acetaminophen (Tylenol) 500 MG tablet Take 1 tablet by mouth every 6 hours as needed. Yes Provider,Historical buPROPion XL (Wellbutrin XL) 300 MG 24 hr tablet Take 1 tablet by mouth every morning. Do not crush, chew, or split. Yes Provider, Historical busPIRone (Buspar) 10 MG tablet Take 1 tablet by mouth 2 times a day. Yes Provider, Historical carvedilol (Coreg) 3.125 MG tablet Take 1 tablet by mouth 2 times a day with meals. Yes Provider, Historical Cinnamon 500 MG tablet Take 1,000 mg by mouth 1 (one) time each day in the morning. Yes Provider, Historical empagliflozin (Jardiance) 25 MG Take 1 tablet by mouth daily. Yes Provider, Historical FLUoxetine (PROzac) 40 MG capsule Take 1 capsule by mouth 2 times a day. Yes Provider, Historical hydrOXYzine HCl (Atarax) 25 MG tablet Take 1 tablet by mouth 4 times a day. Yes Provider, Historical losartan (Cozaar) 25 MG tablet Take 1 tablet by mouth daily. Yes Provider, Historical omega-3 1000 MG capsule Take 1 capsule by mouth every morning. Yes Provider, Historical omeprazole (PriLOSEC) [address] capsule Take 1 capsule by mouth daily. Do not crush or chew. Yes Provider, Historical pravastatin (Pravachol) 20 MG tablet Take 1 tablet by mouth daily. Yes Provider, Historical spironolactone (Aldactone) 25 MG tablet Take 0.5 tablets by mouth daily. Yes Provider, Historical tirzepatide (Mounjaro) 7.5 MG/0.5ML solution auto-injector solution pen-injector Inject 0.5 mL under the skin 1 time per week. Saturday Yes Provider, Historical Vibegron (Gemtesa) 75 MG tablet Take 75 mg by mouth daily. Yes Provider, Historical hydrOXYzine pamoate (Vistaril) 25 MG capsule Take 1 capsule by mouth 4 times a day as needed for itching. 08/25/25 Yes Provider, Historical Mounjaro 2.5 MG/0.5ML solution auto-injector solution pen-injector Inject 0.5 mL under the skin 1 time per week. 08/25/25 Yes Provider, Historical acetaminophen (Tylenol) 500 MG tablet Take 2 tablets (1,000 mg) by mouth every 8 (eight) hours. Patient taking differently: Take 1 tablet by mouth every 8 hours. 08/10/23 08/25/25 Rafal Gonzales MD aspirin 81 MG EC tablet Take 1 tablet (81 mg) by mouth 1 (one) time each day. 08/24/25 Provider, Historical glimepiride (Amaryl) 1 MG tablet Take 1 tablet (1 mg) by mouth 1 (one) time each day before breakfast. 08/25/25 Provider, Historical lisinopril 10 MG tablet Take 1 tablet (10 mg) by mouth 1 (one) time each day in the morning. 08/25/25 Provider, Historical senna (Senokot) 8.6 MG tablet Take 1 tablet (8.6 mg) by mouth every night. 08/10/23 08/25/25 Usha Gonzales MD Social History: Pt has reports that she has never smoked. She has been exposed to tobacco smoke. She has never usedsmokeless tobacco. She reports that she does not drink alcohol and does not use drugs. (details as available below) Social History Substance and Sexual Activity Alcohol Use Never Social History Substance and Sexual Activity Drug Use Never Tobacco Use History[2] Audit-C for Alcohol Misuse Screening No results found for: ETOH Q1: How often did you have a drink containing alcohol in the past year? Never = 0 Q2: How many drinks did you have on a typical day when you were drinking in the past year? None = 0 Q3: How often did you have six or more drinks on one occasion in the past year? Never = 0 The AUDIT-C is scored on a scale of 0-12 (scores of 0 reflect no alcohol use). In men, a score of 4or more is considered positive; in women, a score of 3 or more is considered positive. Generally, the higher the AUDIT-C score, the more likely it is that the patient's drinking is affecting his/her health and safety. If screening positive (men = 4 women = 3), proceed with referral for alcohol misuse. TOTAL SCORE: 0 Brief Intervention Performed: Not indicated Referral to Treatment Made: Not indicated ITSS deferred due to patient acuity, inability to complete screening, or anticipated length of stay. ITSS to be completed when appropriate, added to 'To Do' for delayed provider screening. Relevant review of systems was obtained as able and is negative unless stated above in HPI. Vital signs: Vitals: 08/25/25 1119 BP: 109/61 Pulse: 84 Resp: 14 Temp: 36.8 ??C (98.3 ??F) SpO2: 97% Tertiary exam as documented below: Physical Exam Vitals reviewed. Constitutional: Appearance: Normal appearance. She is not ill-appearing. HENT: Head: Normocephalic and atraumatic. Nose: Nose normal. Mouth/Throat: Mouth: Mucous membranes are moist. Eyes: Extraocular Movements: Extraocular movements intact. Conjunctiva/sclera: Conjunctivae normal. Neck: Comments: No cervical spinous process tenderness to palpation or ROM Cardiovascular: Rate and Rhythm: Normal rate and regular rhythm. Pulses: Normal pulses. Heart sounds: Normal heart sounds. No murmur heard. Pulmonary: Effort: Pulmonary effort is normal. No respiratory distress. Breath sounds: Normal breath sounds. No wheezing. Chest: Chest wall: No tenderness. Abdominal: General: Abdomen is flat. There is no distension. Palpations: Abdomen is soft. Tenderness: There is no abdominal tenderness. There is no guarding. Musculoskeletal: General: Tenderness (R shoulder) and signs of injury (R shoulder) present. Cervical back: Normal range of motion. No tenderness. Comments: R arm in cuff & collar Normal sensation and strength. No T/L spinous process tenderness to palpation or ROM Skin: General: Skin is warm. Findings: Bruising (Diffuse lower extemity) present. Neurological: Mental Status: She is alert and oriented to person, place, and time. Sensory: No sensory deficit. Psychiatric: Behavior: Behavior normal. Thought Content: Thought content normal. No intake or output data in the 24 hours ending 08/25/25 1354 Lines/Drains/Tubes: Patient Lines/Drains/Airways Status Active Airway None Output by Drain (mL) 08/23/25 0700 - 08/23/25 1859 08/23/25 1900 - 08/24/25 0659 08/24/25 0700 - 08/24/25 1859 08/24/25 1900 - 08/25/25 0659 08/25/25 0700 - 08/25/25 1354 Requested LDAs do not have output data documented. Labs in last 18 hours: CBC WBC ?? Hb ?? Plt ?? Hct ?? ANC ?? INR ??, PTT ??, Anti-Xa ?? MCV ?? BMP Na ?? Cl ?? BUN ?? Glu ?? K ?? Co2 ?? Cr ?? Ca ?? iCa ?? Mg ??, Phos ?? Lactate ?? LFT AST ?? AlkPhos ?? T Prot ?? ALK ?? Bili ?? Alb ?? D.Bili ?? Lab Trends: H/H Results from last 7 days Lab Units 08/24/25 0359 HEMOGLOBIN g/dL 11.0* HEMATOCRIT % 33.3* INR Cr Results from last 7 days Lab Units 08/24/25 0359 CREATININE mg/dL 0.86 Radiology: Reviewed I performed a complete tertiary exam, reviewed patient history, lab studies and all available imaging. All traumatic or incidental findings have been documented. Assessment and Plan: Assessment & Plan Closed displaced fracture of surgical neck of right humerus Present on Admission: Yes R humeral neck fx S/p reduction at OSH Ortho following, appreciate recs MMPC NWB RUE, anticipate non-op Fall from standing, initial encounter Present on Admission: Yes Possible orthostatic fall Admit to [facility] Tertiary 08/24 Dizziness Present on Admission: Yes Questionable dizziness contributing to fall Patient recently s/p TTE and Carotid Duplex at OSH, work to obtain records ECHO and carotid U/S ordered d/t inability to obtain OSH records, results pending Tendinopathy Present on Admission: Unknown Calcific tendinopathy Incidental finding Follow up with PCP for further surveillance Hypertension Present on Admission: Unknown Resume home meds as appropriate Diabetes mellitus Present on Admission: Unknown Resume home meds CKD (chronic kidney disease) Present on Admission: Unknown CTM CHF (congestive heart failure) Present on Admission: Unknown Resume home meds as appropriate Non-Hospital Problems Pelvic mass Overview Addendum 08/15/2023 3:02 PM by Marlen Pop MD Pelvic mass - PMB and pelvic pain prompted evaluation - Grossly abnormal office exam - US 06/27/2023 OSH: large solid pelvic mass 11.8 x 7.5 x 10.7 cm, left ovary normal, right ovary not seen - CT 07/01/2023 OSH: multiple masses continuous with uterus observed, no adenopathy or ascites - Initial consult [facility] 07/15/2023 - US 07/15/2023: Fibroids noted, complex Nabothian cysts, 1.1 cm endometrial stripe, left ovary 8.1 x 5.7 x 11.2 cm solid/cystic areas, NM 8 - 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 Thickened endometrium PMB (postmenopausal bleeding) Plan: - Tertiary 08/25 complete - Ortho: non-op, ortho following for serial x-rays - Syncope: work up pending, ECHO, carotid Duplex - [facility] - Bowel regimen - PT/OT Dispo: Subacute rehab Edited by: Jaida Shipman PA at 08/25/2025 8255 QUINTIN Rdeman New diagnoses, need for imaging or specialty consultation identified as present on admission via tertiary survey: None [1] Past Surgical History: Procedure Laterality Date CHOLECYSTECTOMY N/A TOTAL ABDOMINAL HYSTERECTOMY W/ BILATERAL SALPINGOOPHORECTOMY 08/08/2023 TUBAL LIGATION WRIST SURGERY Left [2] Social History Tobacco Use Smoking Status Never Passive exposure: Past Smokeless Tobacco Never * Care Plan - Aminata Jones RN - 08/25/2025 1:33 AM EDT Problem: Adult Inpatient Plan of Care Goal: Plan of Care Review Flowsheets (Taken 08/25/2025129) Progress: improving Plan of Care Reviewed With: patient Goal: Patient-Specific Goal (Individualized) Outcome: Ongoing, Progressing Flowsheets (Taken 08/25/2025129) Patient/Family-Specific Goals (Include Timeframe): Patient will have adequate pain relief during the shift. Individualized Care Needs: pain assessment Anxieties, Fears or Concerns: pain Goal: Absence of Hospital-Acquired Illness or Injury Outcome: Ongoing, Progressing Intervention: Identify and Manage Fall Risk Flowsheets (Taken 08/25/2025129) Safety Promotion/Fall Prevention: activity supervised assistive device/personal items within reach clutter-free environment maintained fall prevention program maintained lighting adjusted mobility aid in reach nonskid shoes/slippers when out of bed room organization consistent safety round/check completed toileting scheduled Intervention: Prevent Skin Injury Flowsheets (Taken 08/25/2025129) Body Position: education provided foot of bed elevated heels elevated Skin Protection: incontinence pads utilized Intervention: Prevent Infection Flowsheets (Taken 08/25/2025129) Infection Prevention: environmental surveillance performed hand hygiene promoted personal protective equipment utilized single patient room provided rest/sleep promoted Problem: Fall Injury Risk Goal: Absence of Fall and Fall-Related Injury Outcome: Ongoing, Progressing Intervention: Identify and Manage Contributors Flowsheets (Taken 08/25/2025129) Medication Review/Management: medications reviewed high-risk medications identified Self-Care Promotion: independence encouraged Intervention: Promote Injury-Free Environment Flowsheets (Taken 08/25/2025129) Safety Promotion/Fall Prevention: activity supervised assistive device/personal items within reach clutter-free environment maintained fall prevention program maintained lighting adjusted mobility aid in reach nonskid shoes/slippers when out of bed room organization consistent safety round/check completed toileting scheduled Problem: Mobility Impairment Goal: Optimal Mobility Outcome: Ongoing, Progressing Intervention: Optimize Mobility Flowsheets (Taken 08/25/2025129) Activity Management: activity adjusted per tolerance previous patient education reinforced ambulated to bathroom Positioning/Transfer Devices: repositioning sheet pillows Problem: Skin Injury Risk Increased Goal: Skin Health and Integrity Outcome: Ongoing, Progressing Intervention: Optimize Skin Protection Flowsheets (Taken 08/25/2025 0130) Activity Management: activity adjusted per tolerance previous patient education reinforced ambulated to bathroom Skin Protection: incontinence pads utilized Head of Bed (HOB) Positioning: HOB at 30 degrees * Hospital Course - Rodney Dwyer APRN - 08/24/2025 4:06 PM EDT Brigid Machado is a 65 y/o female with a PMHx of HTN, DM, HLD, CKD, CHF who presents from OSH on 08/24 after fall from standing. Patient got up off the couch when she got dizzy and fell. Had recent workup for dizziness, unable to get records. Injuries include: R humerus neck fx Past 24h: Patient sitting up in chair resting comfortably. Nursing moved her to the chair and she received pain medication which made her a little drowsy. But she has done fantastic today. Eating all her breakfast and swallowing pills like normal. All blood work and scans look great and speech eval came backnormal. Discussed with Daughter on the phone about discharge who had concerns but they have been all addressed. VSS on RA. Last BM 09/01. Pain well controlled. Discussed plan of care with patient/family, who is in understanding. No further concerns per patient or nursing. Physical therapy and occupational therapy evaluated the patient during hospitalization and recommend subacute rehab. At the time of discharge the patient was hemodynamically stable, tolerating PO, voiding spontaneously, normal bowel function, mobilizing appropriately, with their pain controlled with PO medication. At this time, the patient has obtained the maximum benefit from the present hospital stay, and so will be discharged to [facility] in [place]. DVT prophylaxis: None on discharge Procedures: None Mobility Restrictions: RUE: Non weight bearing with cuff and collar Wound Care: Wash wounds daily with warm, soapy water Incidental Findings: - Calcific tendinopathy - 7mm granuloma in left lung Follow up: PCP: Follow up in 1-2 weeks post hospitalization for incidental findings and management of chronic conditions/medications Neurology: Outpatient referral for cognitive issues and forgetfulness. They will call you with a time. ORT: 12/3 at 8:30AM @ Orthopaedic Surgery & Sports Medicine; [facility], [address], First Floor, Wing C, [address], [place] [address], # [phone]. SGT: [facility] Saturday Clinic as needed; [address] [facility] First Floor, Wing [address] [address], #[phone]. Questions or Concerns and Appointments If there are questions or concerns after discharge from the hospital, please call [phone] and ask for Blue Surgery Nurse. Working hours are Saturday - Saturday 8:00 AM to 4:00 PM. After hours, weekends and holidays please call [phone] and ask for the resident stitcher tape controlled machine for Blue Surgery. For appointments please call [phone]. Medication requests should be made between the hours of 9:00 AM to 3:00 PM Saturday thru Saturday. Please note that based upon recent changes to [place] law related to prescribing opioid pain medications, our providers will not provide refills on controlled medications after your hospital discharge following a major surgery or trauma. [place], [place] 201 [id number]. * Progress Notes - Kandace Briseno Clyde - 08/24/2025 2:00 PM EDT Case Management Adult Initial Progress Note Madyson Machado 65 y.o. female CSN: [id number] Admission: 08/23/2025 9:41 PM Primary Problem: Fall from standing, initial encounter Chauffeur reviewed chart to complete this Initial Case Management Assessment. PCP: Brad Hassan MD Emergency Contact: Extended Emergency Contact Information Primary Emergency Contact: SelwynKarolyn Mobile Relation: Sister Preferred language: Argentine Triage Technician needed? No Secondary Emergency Contact: LATOSHA BANERJEE Mobile Relation: Daughter Triage Technician needed? No Insurance: Primary Visit Coverage Payer Plan Sponsor Code Group Number Group Name HUMANA MEDICARE HUMANA MEDICARE Primary Visit Coverage Subscriber Subscriber ID Subscriber Name Subscriber N Subscriber Address [id number] Madyson Machado [id number] [place] [address] Patient information: Primary Caregiver: Self Support System: Immediate family Daily Living Activities: Functional Status: Minimum assistance Living Arrangements: Alone Type of Residence: Private residence [address] [place] [address] Current DME: Equipment Currently Used at Home: cane, straight Income Information: Income Source: Unemployed Income/Expense Information: Income meets expenses Current Resources Utilized: None Housing Circumstances-Z Codes: Housing Circumstances (select all that apply): Low Income (101-300% Federal Poverty Guidlines) - Z596 Patient Referred to: Anticipated Discharge Date: 08/26/25 Patient's Discharge Goal: Patient/Family Anticipates Transition to: inpatient rehabilitation facility Assistance Available at Discharge: Current Outpatient/Agency/Support Group: DME Availability of Care Givers (#Hours): 1-4 hours Discharge Transport: Transportation Anticipated: medical transport, family or friend will provide Follow Up Transport: Transportation Needed to Follow up Appoinments: Family/Friend will Provide Home Health / Home Infusion / Outpatient Dialysis Services: Living Will/Advance Directive/Power of Aqua Ammonia Operator /Guardian: Social Drivers of Health Food Insecurity: No Food Insecurity (08/24/2025) Hunger Vital Sign Worried About Running Out of Food in the Last Year: Never true Ran Out of Food in the Last Year: Never true Alcohol Use: Low Risk (08/08/2023) CAGE ASSESSMENT Cage unable to access: Not on file Cage max number of drinks: Not on file Cage Beverages a week: Not on file Cage Questionnaire cut down: 0 Cage questionnaire annoyed: 0 Cage questionnaire guilty: 0 Cage questionnaire eye can repairer: 0 Cage Overall score: 0 Housing Stability: Low Risk (08/24/2025) Housing Stability Vital Sign Unable to Pay for Housing in the Last Year: No Number of Times Moved in the Last Year: 0 Homeless in the Last Year: No Tobacco Use: Low Risk (09/02/2023) Patient History Smoking Tobacco Use: Never Smokeless Tobacco Use: Never Passive Exposure: Past Transportation Needs: No Transportation Needs (08/24/2025) PRAPARE - Transportation Lack of Transportation (Medical): No Lack of Transportation (Non-Medical): No Depression: Not on file (09/02/2023) Utilities: Not At Risk (08/24/2025) [facility] Utilities Threatened with loss of utilities: No Stress: Not on file Intimate Partner Violence: Not At Risk (08/24/2025) Humiliation, Afraid, Rape, and Kick questionnaire Fear of Current or Ex-Partner: No Emotionally Abused: No Physically Abused: No Sexually Abused: No Physical Activity: Not on file Social Connections: Not on file Financial Resource Strain: Not on file Additional Comments: Per SGT provider, pt is pending syncopal w/u and not medically appropriate for d/c planning. PT/OT evaluated and rec NORY. SW will discuss NORY options with pt and sister then initiate referrals when appropriate. Pt lives at home alone in [place]. Pt sister provides transportation to f/u appointments. SW willcontinue to follow. Kandace Briseno * Progress Notes - HelenanDanitaGreta Thad - 08/24/2025 9:36 AM EDT Physical Therapy Evaluation Patient Name: Brigid Machado Today's Date: 08/24/2025 PT Discharge Recommendations: Subacute rehab Equipment Recommended: Defer to facility Total session time: 29 minutes History Madyson Machado is 65 y.o. female admitted 08/23/2025 for work-up of Fall from standing, initial encounter. Problem List Active Hospital Problems Diagnosis Date Noted Fall 08/24/2025 Closed displaced fracture of surgical neck of right humerus 08/24/2025 Fall from standing, initial encounter 08/24/2025 Dizziness 08/24/2025 Procedures Past Medical History Patient has a past medical history of Adverse effect of anesthesia, Anxiety, Arthritis, Dental disease, Depression, Diabetes (CMS/HCC), HL (hearing loss), Hyperlipidemia, Hypertension, Joint pain, Motion sickness, and Sleep apnea. Past Surgical History Patient has a past surgical history that includes Cholecystectomy (N/A); Tubal ligation; Wrist surgery (Left); and Total abdominal hysterectomy w/ bilateral salpingoophorectomy (08/08/2023). Precautions Right Upper Extremity Weight Bearing Status : Non-weight bearing (in cuff and collar) Medical Precautions: Fall precautions Subjective Pt was agreeable to therapy session. Participants in Care Family/Caregiver Present: No Triage Technician: Not Applicable Presentation Oxygen Therapy: None (Room air) Lines and Tubes: Intravenous access, Telemetry (purewick) Pre-Session: Supine, Head of bed elevated, Bed alarm, Lines intact Pre-Session Comments: RN agreeable to therapy session Post-Session: Supine, Head of bed elevated, RN notified, Lines intact, Bed alarm (zone 1, 2, 3), Call light in reach Post-Session Comments: Pt positioned for comfort with all needs met Orthoses: Cuff and Collar - Right Home Living/Set-up Lives With: Alone Home Type: House Home Adaptive Equipment: Cane Home Layout: One level, Stairs to enter with rails Number of Stairs: 2 Bathroom: Toilet: Standard Home Living Comments: Sister lives nearby and provides transportation. Pt states that her shower doesn't work and she has to sponge bathe. Prior Level of Function Receives Help From: No assist required prior to admission Level of Mobility: Ambulatory- household only Mobility Ames: Independent gait without device History of Falls: Yes (2 falls in the past 3 months) ADL Performance: Independent Patient/Family Goals to return home, have less pain Objective Pain Pt reported 6/10 pain in neck and right shoulder at rest that increased to a 10/10 with mobility. RN informed of pt requesting pain medication at end of session. Pt positioned for comfort at end of session. Delirium Screening RASS: Alert and calm Confusion Assessment Method-ICU (CAM-ICU/PCAM-ICU) Feature 3: Altered Level of Consciousness: Negative Cognition Overall Cognitive Status: Impaired Arousal/Alertness: Delayed responses to stimuli Mood/Behavior: Alert, Confused Orientation Level: Oriented X4 Single Step Commands: 75% of the time, With increased time, With repetition Multi-Step Commands: Unable to follow commands Method of Communication: Verbal Vision - Basic Assessment Baseline Vision: Glasses distance Patient Visual Report: Pt keeps eyes closed throughout session, states problems with vision due to cataracts. Pt states that she wears glasses at home but they broke in the fall. Right Upper Extremity Examination RUE Assessment: (shoulder and elbow not tested due to cuff and collar, wrist and hand AROM WFL) Manual Muscle Testing - RUE: (not tested due to NWB) Sensation Light Touch: Right Upper Extremity: Intact Left Upper Extremity Examination LUE ROM Assessment LUE Assessment: (AAROM WFL shoulder, distally AROM WFL) Manual Muscle Testing - LUE Manual Muscle Testing - LUE: (3/5 grossly, mild tremors) Sensation Light Touch: Left Upper Extremity: Intact Right Lower Extremity Examination RLE ROM Assessment RLE Assessment: (AAROM WFL) Manual Muscle Testing - RLE Manual Muscle Testing - RLE: (3-/5 grossly, moderate tremors) Sensation Light Touch: Right Lower Extremity: Intact Left Lower Extremity Examination LLE Assessment: (AAROM WFL) Manual Muscle Testing: (3-/5 grossly, moderate tremors) Sensation Light Touch: Left Lower Extremity: Intact Bed Mobility Bed Mobility Exam: Supine to Sit Level of Ames: Maximum assist (25% patient's effort) Physical/Nonphysical Assist: Verbal Cues, Nonverbal cues (demo/gestures), HOB elevated, Maximal cues, Additional assist utilized for safety Assistive Device: Other (L hand held assist) Bed Mobility Exam: Sit to Supine Level of Ames: Maximum assist (25% patient's effort) Physical/Nonphysical Assist: Verbal Cues, Nonverbal cues (demo/gestures), Maximal cues, Additional assist utilized for safety Assistive Device: Other (L hand held assist) Transfers Transfer Exam: Sit to stand Level of Ames: Moderate assist (50% patient's effort) Physical/Nonphysical Assist: Verbal Cues, Nonverbal cues (demo/gestures), Maximal cues, Additional assist utilized for safety Assistive Device: Hand held assist (L UE) Transfer Exam: Stand to Sit Level of Ames: Maximum assist (25% patient's effort) Physical/Nonphysical Assist: Verbal Cues, Nonverbal cues (demo/gestures), Maximal cues, Additional assist utilized for safety Assistive Device: Hand held assist (L UE) Ambulation Device: Hand held assist (L UE) Assistance: Moderate assistance, Moderate verbal cues, Moderate tactile cues, Additional assist utilized for safety Distance : 2 sidesteps to head of bed Ambulation Comments: Pt demonstrated poor weight shifting, increased postural sway, a crouched and forward flexed posture, and increased tremors in extremities. Pt required physical assistance to improve upright posture, balance, and weight shifting technique. Further ambulaion deferred due to safety concerns. Balance Postural Appearance Posture: Rounded shoulders, Forward head Static Sitting Balance Static Sitting-Balance Support: Feet unsupported, Left upper extremity support Static Sitting-Level of Assistance: Minimum assistance Dynamic Sitting Balance Dynamic Sitting-Balance Support: Feet unsupported, Left upper extremity support Level of Assistance: Moderate assistance Static Standing Balance Static Standing-Balance Support: Left upper extremity support Static Standing-Level of Assistance: Moderate assistance Dynamic Standing Balance Dynamic Standing-Balance Support: Left upper extremity support Dynamic Standing Level of Assistance: Moderate assistance Therapeutic Activity (14 minutes) Pt participated in bed mobility, transfers, and edge of bed sitting to improve independence with functional mobility. See respective sections for more information. Pt educated on weight bearing restrictions and need for cuff and collar wear. Pt required increased cues to improve initiation of mobility with minimal attempt noted by pt to perform. Pt with increased extremity tremors with movement. Pt required cues to improve L hand placement, foot placement, body mechanics, and safety to stand and take 2 sidesteps to the head of bed. Pt with increased shaking and safety concerns, so further mobility was deferred and pt was assisted to supine. Pt educated on PT plan of care, discharge recommend ations, and need for further mobilization with nursing staff. Standardized Assessments Standardized Assessments Standardized Assessments: [facility] 6-Clicks Mobility Assessment [facility] 6-Clicks Mobility Assessment Difficulty patient has turning over in bed (including adjusting bedclothes, sheets, and blankets)?:A lot Difficulty patient has sitting down on and standing up from a chair with arms (wheelchair, bedside commode, etc.)?: A lot Difficulty patient has moving from lying on back to sitting on the side of the bed?: A lot How much help does the patient need moving to and from a bed to a chair (including a wheelchair)?: A lot How much help does the patient need to walk in hospital room?: Unable How much help does the patient need climbing 3-5 steps with a railing?: Unable [facility] 6-Clicks Mobility Assessment Total : 10 Assessment Pt demonstrated increased confusion. Pt required increased physical assistance with bed mobility, transfers, and sidestepping due to the impairments listed below as well as weight bearing restrictions. Pt was unable to ambulate due to extremity tremors and safety concerns. Pt is a high fall risk and is unsafe to return home alone. Recommending subacute rehab to assist pt in regaining independencewith mobility and to facilitate a safe transition home. Pt will continue to benefit from skilled PTto improve balance, strength, and functional mobility. Impairments: Decreased endurance, ventilation, and/or gas exchange, Impaired gait dynamics/performance, Impaired postural/trunk control, Decreased strength, Pain, Impaired functional mobility/transfers, Impaired balance, Impaired cognition/safety awareness, Impaired executive functioning, Decreasedrange of motion, Impaired vision/visual processing, Impaired attention/alertness Activity Limitations: Inability to complete ADLs independently, Inability to ambulate community distances, Inability to ambulate household distances, Inability to ambulate independently, Inability totransfer independently, Impaired attention/alertness Participation Restrictions: Self-care, Home management, Community leisure Activity Tolerance: Tolerates 10 - 20 min activity with multiple rests Evaluation/Treatment Tolerance: Patient limited by pain Diagnosis: impaired functional mobility secondary to medical diagnosis Rehab Potential: Good, to achieve stated therapy goals Barriers to Discharge: Comorbidities, Lack of family support, Home design, Ability to acquire knowledge Eval Complexity History Profile: 1 - 2 personal factors and/or comorbidities Clinical Presentation: Evolving clinical presentation with changing characteristics Clinical Decision Making: Moderate complexity PT Recommendations Discharge Destination: Subacute rehab Discharge Equipment: Defer to facility Plan Planned PT Interventions Balance training, Bed mobility training, Gait training, Transfer training, Neuromuscular re-education, Strengthening, Functional Mobility, Caregiver training PT Frequency 2 - 5 times per week PT Duration 2 weeks Goals PT GOAL DETAILS Time Frame PT Goal 1: Pt/family will be independent with HEP. 2 weeks PT Goal 2: Pt will transfer supine<>sit with Min A. 2 weeks PT Goal 3: Pt will transfer sit<>stand and bed<>chair with appropriate assistive deviceand Min A. 2 weeks PT Goal 4: Pt will ambulate 150ft with appropriate assistive device and Min A. 2 weeks PT Goal 5: Pt will ascend and descend 2 stairs with use of appropriate assistive device and Min A. 2 weeks Written by Greta Doty on 08/24/25 at 1:05 PM. * Progress Notes - Concepcion Pagan - 08/24/2025 9:35 AM EDT Occupational Therapy Evaluation Patient Name: Brigid Machado Today's Date: 08/24/2025 OT Discharge Recommendations: Subacute rehab Equipment Recommended: Defer to facility Total treatment time: 28 minutes History Madyson Machado is 65 y.o. female admitted 08/23/2025 for work-up of Fall from standing, initial encounter. Problem List Active Hospital Problems Diagnosis Date Noted Fall 08/24/2025 Closed displaced fracture of surgical neck of right humerus 08/24/2025 Fall from standing, initial encounter 08/24/2025 Dizziness 08/24/2025 Procedures Past Medical History Patient has a past medical history of Adverse effect of anesthesia, Anxiety, Arthritis, Dental disease, Depression, Diabetes (CMS/HCC), HL (hearing loss), Hyperlipidemia, Hypertension, Joint pain, Motion sickness, and Sleep apnea. Past Surgical History Patient has a past surgical history that includes Cholecystectomy (N/A); Tubal ligation; Wrist surgery (Left); and Total abdominal hysterectomy w/ bilateral salpingoophorectomy (08/08/2023). Precautions Right Upper Extremity Weight Bearing Status : Non-weight bearing (in cuff and collar) Medical Precautions: Fall precautions Subjective Pt agreeable to participate in OT session. Participants in Care Family/Caregiver Present: No Triage Technician: Not Applicable Presentation Oxygen Therapy: None (Room air) Lines and Tubes: Intravenous access, Telemetry (purewick) Pre-Session: Supine, Head of bed elevated, Bed alarm, Lines intact Pre-Session Comments: RN agreeable to therapy session Post-Session: Supine, Head of bed elevated, RN notified, Lines intact, Bed alarm (zone 1, 2, 3), Call light in reach Post-Session Comments: Pt positioned for comfort with all needs met Orthoses: Cuff and Collar - Right Home Living/Set-up Lives With: Alone Home Type: House Home Adaptive Equipment: Cane Home Layout: One level, Stairs to enter with rails Number of Stairs: 2 Bathroom: Toilet: Standard Home Living Comments: Sister lives nearby and provides transportation. Pt states that her shower doesn't work and she has to sponge bathe. Prior Level of Function Receives Help From: No assist required prior to admission Level of Mobility: Ambulatory- household only Mobility Ames: Independent gait without device History of Falls: Yes (2 falls in the past 3 months) ADL Performance: Independent Patient/Family Goals Statement To return home. Objective Pain Pt reports 6/10 pain in neck/shoulder, increasing with mobility. RN notified. Pt positioned for increased comfort at close of session. Delirium Screening RASS: Alert and calm Confusion Assessment Method-ICU (CAM-ICU/PCAM-ICU) Feature 3: Altered Level of Consciousness: Negative Cognition Overall Cognitive Status: Impaired Arousal/Alertness: Delayed responses to stimuli Mood/Behavior: Alert, Confused Orientation Level: Oriented X4 Single Step Commands: 75% of the time, With increased time, With repetition Multi-Step Commands: Unable to follow commands Method of Communication: Verbal Vision - Basic Assessment Baseline Vision: Glasses distance Patient Visual Report: Pt keeps eyes closed throughout session, states problems with vision due to cataracts. Pt states that she wears glasses at home but they broke in the fall. Right Upper Extremity Examination RUE ROM Assessment RUE Assessment: (shoulder and elbow not tested due to cuff and collar, wrist and hand AROM WFL) Manual Muscle Testing - RUE: (not tested due to NWB) Sensation Light Touch: Right Upper Extremity: Intact Left Upper Extremity Examination LUE ROM Assessment LUE Assessment: (AAROM WFL shoulder, distally AROM WFL) Manual Muscle Testing - LUE: (3/5 grossly, mild tremors) Sensation Light Touch: Left Upper Extremity: Intact Right Lower Extremity Examination RLE ROM Assessment RLE Assessment: (AAROM WFL) Manual Muscle Testing - RLE: (3-/5 grossly, moderate tremors) Sensation Light Touch: Right Lower Extremity: Intact Left Lower Extremity Examination LLE ROM Assessment LLE Assessment: (AAROM WFL) Manual Muscle Testing: (3-/5 grossly, moderate tremors) Sensation Light Touch: Left Lower Extremity: Intact Bed Mobility Bed Mobility Exam: Scooting/Bridging Level of Ames: Maximum assist (25% patient's effort) (seated scooting to EOB) Physical/Nonphysical Assist: Verbal Cues, Minimal cues Assistive Device: Other (drawsheet) Bed Mobility Exam: Supine to Sit Level of Ames: Maximum assist (25% patient's effort) Physical/Nonphysical Assist: Verbal Cues, Nonverbal cues (demo/gestures), HOB elevated, Maximal cues, Additional assist utilized for safety Assistive Device: Other (L hand held assist) Bed Mobility Exam: Sit to Supine Level of Ames: Maximum assist (25% patient's effort) Physical/Nonphysical Assist: Verbal Cues, Nonverbal cues (demo/gestures), Maximal cues, Additional assist utilized for safety Assistive Device: Other (L PANEL ASSEMBLER) Transfers Transfer Exam: Sit to stand Level of Ames: Moderate assist (50% patient's effort) Physical/Nonphysical Assist: Verbal Cues, Nonverbal cues (demo/gestures), Maximal cues, Additional assist utilized for safety Assistive Device: Hand held assist (L UE) Transfer Exam: Stand to Sit Level of Ames: Maximum assist (25% patient's effort) Physical/Nonphysical Assist: Verbal Cues, Nonverbal cues (demo/gestures), Maximal cues, Additional assist utilized for safety Assistive Device: Hand held assist (L UE) Balance Postural Appearance Posture: Rounded shoulders, Forward head Static Sitting Balance Static Sitting-Balance Support: Feet unsupported, Left upper extremity support Static Sitting-Level of Assistance: Minimum assistance Dynamic Sitting Balance Dynamic Sitting-Balance Support: Feet unsupported, Left upper extremity support Level of Assistance: Moderate assistance Static Standing Balance Static Standing-Balance Support: Left upper extremity support Static Standing-Level of Assistance: Moderate assistance Dynamic Standing Balance Dynamic Standing-Balance Support: Left upper extremity support Dynamic Standing Level of Assistance: Moderate assistance Self-Care Interventions Self Care/Home Management (ADLs) Time Entry: 13 Pt benefited from skilled occupational therapy interventions including: Monitoring of vitals to ensure activity tolerance (Vitals remained WFL throughout session.) MIN verbal and tactile cues to facilitate improved body mechanics and safety with AD use during functional tasks Provision of increased time frames to support optimal level of pt participation Task/activity modification with grading as needed to achieve safety while also providing appropriate functional challenge Skilled organization and management of medical lines/tubes to reduce fall risk with mobility aspects of ADLs Environmental set-up to ensure safety and accessibility to all needed areas of treatment space Toileting Toileting Interventions: In preparation for functional demands of toileting, pt completed low surface sit>stand transfers x 1 trial in order to simulate functional toilet transfer. Pt completed trials with mod-max assist x 2 with LUE PANEL ASSEMBLER. Maximal verbal and tactile cues provided for upright postural control, maintenance of NWB precautions, and sequencing. In preparation for functional demands of functional bed> bed side chair transfer / bed > BSC transfer pt performed two lateral stepsto HOB with mod assist x 2. Maximal cues provided for BLE management/sequencing and transitioning to sitting following steps. Health Management Health Management interventions: Therapist facilitated functional bed mobility in preparation for OOB ADL engagement. Pt completed supine<>sit with max assist x 2 for trunk control and BLE management. Pt able to maintain unsupported sitting at EOB for increased time for static/dynamic sittingtasks, tolerating fairly, with increase in pain, with min-mod to maintain balance. Verbal and tactile cues provided for RUE positioning on bed level to facilitate increased independence for sitting balance, pt with poor carry-over 2/2 confusion and anxiety with mobility this date. Standardized Assessments [facility] 6-Click Daily Activities Help from Other: Don/Doff Regular Lower Body Clothings: A lot Help From Other: Bathing: A lot Help From Other: Toileting: A lot Help From Other: Don/Doff Upper Body Clothings: A lot Help From Other: Grooming: Little Help From Other: Eating Meals: Little [facility] 6 Click - Daily Activities Score: 14 Assessment On this date, OT eval performed, pt is currently not safe to return home, even with home health services, due to the following OT-related functional limitations and safety concerns: The patient demonstrates poor static and dynamic balance, resulting in frequent near-falls or actual falls during ADLs, transfers, and mobility tasks. Supervision or hands-on assistance is required for essential self-care tasks (e.g., bathing, toileting, dressing), which exceeds the level of support typically available through intermittent home health visits. The patient lacks the cognitive and/or physical capacity to safely compensate for these deficits without continuous skilled oversight and environmental control, which is not feasible in the home setting. The home environment lacks the necessary adaptive equipment or 24/ supervision, placing the patient at high risk for injury. The patient requires daily, skilled OT interventions to restore ADL independence, improve safety awareness, and establish safe routines -- services that cannot be delivered at the intensity or frequency through home health. Given these factors, subacute rehabilitation is the most appropriate discharge option to ensure patient safety, prevent further injury or readmission, and support functional recovery through comprehensive, daily OT services in a structured environment. OT Findings: Impaired ADL performance, Impaired IADL performance, Impaired functional mobility, Impaired balance, Impaired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 capillary glucose result is not consistent with the patient's clinical signs and symptoms, glucose testing should be repeated with either an arterial or venous sample on the glucometer or sent to the main labortory for testing. Comment 08/31/2025 8:56 AM EDT [facility] [employer] ID Lake Burns 08/31/2025 8:56 AM EDT [facility] Device ID [id number] 08/31/2025 8:56 AM EDT [facility] Specimen Type POC Capillary 08/31/2025 8:56 AM EDT [facility] Blood Capillary blood specimen / Unknown 08/31/2025 8:54 AM EDT 08/31/2025 8:56 AM EDT Izzy Griffith MD LAB POINT OF CARE TEST DOCKED DEVICE UNSOLICITED RESULTS Final Result Performing Organization Address City/[facility] Co de Phone Number [facility] [address] [place] [address] * (ABNORMAL) POCT glucose meter (08/30/2025 8:16 PM EDT) POCT Glucose 136(H) 74 - 99 mg/dL 08/30/2025 8:18 PM EDT [facility] Comment:Accuracy of a glucos e result obtained from a capillary whole blood specimen relies upon adequate, non-compromised capillary blood flow. If the capillary glucose result is not consistent with the patient's clinical signs and symptoms, glucose testing should be repeated with either an arterial or venous sample on the glucometer or sent to the main labortory for testing. Comment 08/30/2025 8:18 PM EDT [facility] [employer] ID Yusef Branch 08/30/2025 8:18 PM EDT [facility] LAB Device ID [id number] 08/30/2025 8:18 PM EDT [facility] Specimen Type POC Capillary 08/30/2025 8:18 PM EDT [facility] Blood Capillary blood specimen / Unknown 08/30/2025 8:16 PM EDT 08/30/2025 8:18 PM EDT us Izzy Griffith MD LAB POINT OF CARE TEST DOCKED DEVICE UNSOLICITED RESULTS Final Result Performing Organization Address City/[facility]/ZIP Co de Phone Number [facility] [address] [place] [address] * (ABNORMAL) POCT glucose meter (08/30/2025 4:49 PM EDT) POCT Glucose 196(H) 74 - 99 mg/dL 08/30/2025 4:51 PM EDT [facility] Comment:Accuracy of a glucos e result obtained from a capillary whole blood specimen relies upon adequate, non-compromised capillary blood flow. If the capillary glucose result is not consistent with the patient's clinical signs and symptoms, glucose testing should be repeated with either an arterial or venous sample on the glucometer or sent to the main labortory for testing. Comment 08/30/2025 4:51 PM EDT [facility] [employer] ID Nathalia Senior 4:51 PM EDT [facility] Device ID [id number] 08/30/2025 4:51 PM EDT [facility] Specimen Type POC Capillary 08/30/2025 4:51 PM EDT [facility] Blood Capillary blood specimen / Unknown 08/30/2025 4:49 PM EDT 08/30/2025 4:51 PM EDT Izzy Griffith MD LAB POINT OF CARE TEST DOCKED DEVICE UNSOLICITED RESULTS Final Result [facility] [address] [place] [address] * (ABNORMAL) POCT glucose meter (08/30/2025 12:24 PM EDT) [facility] POCT Glucose 177(H) 74 - 99 mg/dL 08/30/2025 12:25 PM EDT [facility] Comment:Accuracy of a glucos e result obtained from a capillary whole blood specimen relies upon adequate, non-compromised capillary blood flow. If the capillary glucose result is not consistent with the patient's clinical signs and symptoms, glucose testing should be repeated with either an arterial or venous sample on the glucometer or sent to the main labortory for testing. Comment 08/30/2025 12:25 PM EDT [facility] [employer]ist ID Edmund Carr 08/30/2025 12:25 PM EDT [facility] LAB Device ID [id number] 08/30/2025 12:25 PM EDT [facility] Specimen Type POC Capillary 08/30/2025 12:25 PM EDT [facility] Blood Capillary blood specimen / Unknown 08/30/2025 12:24 PM EDT 08/30/2025 12:25 PM EDT Izzy Griffith MD LAB POINT OF CARE TEST DOCKED DEVICE UNSOLICITED RESULTS Final Result Performing Organization Address [facility] de Phone Number [facility] [address] [place] [address] * (ABNORMAL) POCT glucose meter (08/30/2025 7:38 AM EDT) Pathologist [facility] POCT Glucose 159(H) 74 - 99 mg/dL 08/30/2025 7:39 AM EDT [facility] Comment:Accuracy of a glucos e result obtained from a capillary whole blood specimen relies upon adequate, non-compromised capillary blood flow. If the capillary glucose result is not consistent with the patient's clinical signs and symptoms, glucose testing should be repeated with either an arterial or venous sample on the glucometer or sent to the main labortory for testing. Comment 08/30/2025 7:39 AM EDT [facility] [employer] ID Nathalia Senior 7:39 AM EDT [facility] LAB Device ID [id number] 08/30/2025 7:39 AM EDT [facility] Specimen Type POC Capillary 08/30/2025 7:39 AM EDT [facility] Blood Capillary blood specimen / Unknown 08/30/2025 7:38 AM EDT 08/30/2025 7:39 AM EDT Ester Vivas MD LAB POINT OF CARE TEST DOCKED DEVICE UNSOLICITED RESULTS Final Result Performing Organization Address City/[facility] Co de Phone Number [facility] [address] [place] [address] * (ABNORMAL) POCT glucose meter (08/29/2025 7:42 PM EDT) Pathologist [facility] POCT Glucose 158(H) 74 - 99 mg/dL 08/29/2025 7:44 PM EDT [facility] Comment:Accuracy of a glucos e result obtained from a capillary whole blood specimen relies upon adequate, non-compromised capillary blood flow. If the capillary glucose result is not consistent with the patient's clinical signs and symptoms, glucose testing should be repeated with either an arterial or venous sample on the glucometer or sent to the main labortory for testing. Comment 08/29/2025 7:44 PM EDT [facility] [employer] ID Yusef Branch 08/29/2025 7:44 PM EDT [facility] Device ID [id number] 08/29/2025 7:44 PM EDT [facility] Specimen Type POC Capillary 08/29/2025 7:44 PM EDT [facility] Blood Capillary blood specimen / Unknown 08/29/2025 7:42 PM EDT 08/29/2025 7:44 PM EDT us Ester Vivas MD LAB POINT OF CARE TEST DOCKED DEVICE UNSOLICITED RESULTS Final Result Performing Organization Address City/[facility] Co de Phone Number [facility] [address] [place] [address] * (ABNORMAL) POCT glucose meter (08/29/2025 5:26 PM EDT) [facility] POCT Glucose 180(H) 74 - 99 mg/dL 08/29/2025 5:28 PM EDT [facility] Comment:Accuracy of a glucos e result obtained from a capillary whole blood specimen relies upon adequate, non-compromised capillary blood flow. If the capillary glucose result is not consistent with the patient's clinical signs and symptoms, glucose testing should be repeated with either an arterial or venous sample on the glucometer or sent to the main labortory for testing. Comment 08/29/2025 5:28 PM EDT [facility] [employer] ID Edmund Carr 08/29/2025 5:28 PM EDT [facility] Device ID [id number] 08/29/2025 5:28 PM EDT [facility] Specimen Type POC Capillary 08/29/2025 5:28 PM EDT [facility] Blood Capillary blood specimen / Unknown 08/29/2025 5:26 PM EDT 08/29/2025 5:28 PM EDT us Ester Vivas MD LAB POINT OF CARE TEST DOCKED DEVICE UNSOLICITED RESULTS Final Result [facility] [address] [place] [address] * (ABNORMAL) POCT glucose meter (08/29/2025 12:38 PM EDT) [facility] POCT Glucose 168(H) 74 - 99 mg/dL 08/29/2025 12:40 PM EDT [facility] Comment:Accuracy of a glucos e result obtained from a capillary whole blood specimen relies upon adequate, non-compromised capillary blood flow. If the capillary glucose result is not consistent with the patient's clinical signs and symptoms, glucose testing should be repeated with either an arterial or venous sample on the glucometer or sent to the main labortory for testing. Comment 08/29/2025 12:40 PM EDT [facility] [employer] ID Bruno Edmund 08/29/2025 12:40 PM EDT [facility] Device ID [id number] 08/29/2025 12:40 PM EDT [facility] Specimen Type POC Capillary 08/29/2025 12:40 PM EDT [facility] Blood Capillary blood specimen / Unknown 08/29/2025 12:38 PM EDT 08/29/2025 12:40 PM EDT Ester Vivas MD LAB POINT OF CARE TEST DOCKED DEVICE UNSOLICITED RESULTS Final Result Performing Organization Address [facility] Co de Phone Number [facility] [address] [place] [address] * (ABNORMAL) POCT glucose meter (08/29/2025 8:49 AM EDT) [facility] POCT Glucose 140(H) 74 - 99 mg/dL 08/29/2025 8:50 AM EDT [facility] Comment:Accuracy of a glucos e result obtained from a capillary whole blood specimen relies upon adequate, non-compromised capillary blood flow. If the capillary glucose result is not consistent with the patient's clinical signs and symptoms, glucose testing should be repeated with either an arterial or venous sample on the glucometer or sent to the main labortory for testing. Comment 08/29/2025 8:50 AM EDT [facility] [employer] ID Bruno Edmund 08/29/2025 8:50 AM EDT [facility] Device ID [id number] 08/29/2025 8:50 AM EDT [facility] Specimen Type POC Capillary 08/29/2025 8:50 AM EDT [facility] Blood Capillary blood specimen / Unknown 08/29/2025 8:49 AM EDT 08/29/2025 8:50 AM EDT Ester Vivas MD LAB POINT OF CARE TEST DOCKED DEVICE UNSOLICITED RESULTS Final Result Performing Organization Address [facility] de Phone Number [facility] [address] [place] [address] * (ABNORMAL) POCT glucose meter (08/28/2025 8:43 PM EDT) POCT Glucose 133(H) 74 - 99 mg/dL 08/28/2025 8:48 PM EDT [facility] Comment:Accuracy of a glucos e result obtained from a capillary whole blood specimen relies upon adequate, non-compromised capillary blood flow. If the capillary glucose result is not consistent with the patient's clinical signs and symptoms, glucose testing should be repeated with either an arterial or venous sample on the glucometer or sent to the main labortory for testing. Comment 08/28/2025 8:48 PM EDT [facility] [employer]ist ID Talon Mcmullen 08/28/2025 8:48 PM EDT [facility] LAB Device ID [id number] 08/28/2025 8:48 PM EDT [facility] Specimen Type POC Capillary 08/28/2025 8:48 PM EDT [facility] Blood Capillary blood specimen / Unknown 08/28/2025 8:43 PM EDT 08/28/2025 8:48 PM EDT Ester Vivas MD LAB POINT OF CARE TEST DOCKED DEVICE UNSOLICITED RESULTS Final Result Performing Organization Address City/[facility] Co de Phone Number [facility] [address] [place] [address] * (ABNORMAL) POCT glucose meter (08/28/2025 5:15 PM EDT) POCT Glucose 166(H) 74 - 99 mg/dL 08/28/2025 5:17 PM EDT [facility] Comment:Accuracy of a glucos e result obtained from a capillary whole blood specimen relies upon adequate, non-compromised capillary blood flow. If the capillary glucose result is not consistent with the patient's clinical signs and symptoms, glucose testing should be repeated with either an arterial or venous sample on the glucometer or sent to the main labortory for testing. Comment 08/28/2025 5:17 PM EDT [facility] [employer] ID Vivian Keller 08/28/2025 5:17 PM EDT [facility] Device ID [id number] 08/28/2025 5:17 PM EDT [facility] Specimen Type POC Capillary 08/28/2025 5:17 PM EDT [facility] Blood Capillary blood specimen / Unknown 08/28/2025 5:15 PM EDT 08/28/2025 5:17 PM EDT Ester Vivas MD LAB POINT OF CARE TEST DOCKED DEVICE UNSOLICITED RESULTS Final Result [facility] [address] [place] [address] * (ABNORMAL) POCT glucose meter (08/28/2025 1:05 PM EDT) [facility] POCT Glucose 207(H) 74 - 99 mg/dL 08/28/2025 1:06 PM EDT [facility] Comment:Accuracy of a glucos e result obtained from a capillary whole blood specimen relies upon adequate, non-compromised capillary blood flow. If the capillary glucose result is not consistent with the patient's clinical signs and symptoms, glucose testing should be repeated with either an arterial or venous sample on the glucometer or sent to the main labortory for testing. Comment 08/28/2025 1:06 PM EDT [facility] [employer]ist ID Kathy Taylor 1:06 PM EDT [facility] Device ID [id number] 08/28/2025 1:06 PM EDT [facility] Specimen Type POC Capillary 08/28/2025 1:06 PM EDT [facility] Blood Capillary blood specimen / Unknown 08/28/2025 1:05 PM EDT 08/28/2025 1:06 PM EDT Ester Vivas MD LAB POINT OF CARE TEST DOCKED DEVICE UNSOLICITED RESULTS Final Result Performing Organization Address [facility] de Phone Number [facility] [address] [place] [address] * (ABNORMAL) POCT glucose meter (08/28/2025 9:18 AM EDT) POCT Glucose 155(H) 74 - 99 mg/dL 08/28/2025 9:20 AM EDT [facility] Comment:Accuracy of a glucos e result obtained from a capillary whole blood specimen relies upon adequate, non-compromised capillary blood flow. If the capillary glucose result is not consistent with the patient's clinical signs and symptoms, glucose testing should be repeated with either an arterial or venous sample on the glucometer or sent to the main labortory for testing. Comment 08/28/2025 9:20 AM EDT [facility] [employer]ist ID Kathy Taylor 9:20 AM EDT [facility]ALTH[facility]ARE LAB Device ID [id number] 08/28/2025 9:20 AM EDT [facility] Specimen Type POC Capillary 08/28/2025 9:20 AM EDT [facility] Blood Capillary blood specimen / Unknown 08/28/2025 9:18 AM EDT 08/28/2025 9:20 AM EDT Ester Vivas MD LAB POINT OF CARE TEST DOCKED DEVICE UNSOLICITED RESULTS Final Result Performing Organization Address City/[facility] Co de Phone Number [facility] [address] [place] [address] * (ABNORMAL) POCT glucose meter (08/28/2025 6:26 AM EDT) POCT Glucose 162(H) 74 - 99 mg/dL 08/28/2025 6:28 AM EDT [facility] Comment:Accuracy of a glucos e result obtained from a capillary whole blood specimen relies upon adequate, non-compromised capillary blood flow. If the capillary glucose result is not consistent with the patient's clinical signs and symptoms, glucose testing should be repeated with either an arterial or venous sample on the glucometer or sent to the main labortory for testing. Comment 08/28/2025 6:28 AM EDT [facility] [employer]ist ID Uri Mustafa 6:28 AM EDT [facility] LAB Device ID [id number] 08/28/2025 6:28 AM EDT [facility] Specimen Type POC Capillary 08/28/2025 6:28 AM EDT [facility] Blood Capillary blood specimen / Unknown 08/28/2025 6:26 AM EDT 08/28/2025 6:28 AM EDT Juan Otero MD LAB POINT OF CARE TEST DOCKED DEVICE UNSOLICITED RESULTS Final Result Performing Organization Address [facility] Co de Phone Number [facility] [address] [place] [address] * (ABNORMAL) POCT glucose meter (08/27/2025 9:06 PM EDT) POCT Glucose 159(H) 74 - 99 mg/dL 08/27/2025 9:09 PM EDT [facility] Comment:Accuracy of a glucos e result obtained from a capillary whole blood specimen relies upon adequate, non-compromised capillary blood flow. If the capillary glucose result is not consistent with the patient's clinical signs and symptoms, glucose testing should be repeated with either an arterial or venous sample on the glucometer or sent to the main labortory for testing. Comment 08/27/2025 9:09 PM EDT [facility] [employer]ist ID Uri Mustafa 9:09 PM EDT [facility] LAB Device ID [id number] 08/27/2025 9:09 PM EDT [facility] Specimen Type POC Capillary 08/27/2025 9:09 PM EDT [facility] Blood Capillary blood specimen / Unknown 08/27/2025 9:06 PM EDT 08/27/2025 9:09 PM EDT Juan Otero MD LAB POINT OF CARE TEST DOCKED DEVICE UNSOLICITED RESULTS Final Result Performing Organization Address City/[facility] Co de Phone Number [facility] [address] [place] [address] * (ABNORMAL) POCT glucose meter (08/27/2025 5:11 PM EDT) [facility] POCT Glucose 126(H) 74 - 99 mg/dL 08/27/2025 5:13 PM EDT [facility] Comment:Accuracy of a glucos e result obtained from a capillary whole blood specimen relies upon adequate, non-compromised capillary blood flow. If the capillary glucose result is not consistent with the patient's clinical signs and symptoms, glucose testing should be repeated with either an arterial or venous sample on the glucometer or sent to the main labortory for testing. Comment 08/27/2025 5:13 PM EDT [facility] [employer]ist ID Vivian Keller 08/27/2025 5:13 PM EDT [facility] LAB Device ID [id number] 08/27/2025 5:13 PM EDT [facility] Specimen Type POC Capillary 08/27/2025 5:13 PM EDT [facility] Blood Capillary blood specimen / Unknown 08/27/2025 5:11 PM EDT 08/27/2025 5:13 PM EDT Juan Otero MD LAB POINT OF CARE TEST DOCKED DEVICE UNSOLICITED RESULTS Final Result Performing Organization Address City/State/[place] Co de Phone Number [facility] [address] [place] [address] * (ABNORMAL) POCT glucose meter (08/27/2025 12:25 PM EDT) [facility] POCT Glucose 222(H) 74 - 99 mg/dL 08/27/2025 12:26 PM EDT [facility] Comment:Accuracy of a glucos e result obtained from a capillary whole blood specimen relies upon adequate, non-compromised capillary blood flow. If the capillary glucose result is not consistent with the patient's clinical signs and symptoms, glucose testing should be repeated with either an arterial or venous sample on the glucometer or sent to the main labortory for testing. Comment 08/27/2025 12:26 PM EDT [facility] [employer]ist ID Vivian Keller 08/27/2025 12:26 PM EDT [facility] Device ID [id number] 08/27/2025 12:26 PM EDT [facility] Specimen Type POC Capillary 08/27/2025 12:26 PM EDT [facility] Blood Capillary blood specimen / Unknown 08/27/2025 12:25 PM EDT 08/27/2025 12:26 PM EDT Juan Otero MD LAB POINT OF CARE TEST DOCKED DEVICE UNSOLICITED RESULTS Final Result Performing Organization Address City/[facility]/ZIP Co de Phone Number [facility] [address] [place] [address] * (ABNORMAL) POCT glucose meter (08/27/2025 8:39 AM EDT) POCT Glucose 154(H) 74 - 99 mg/dL 08/27/2025 8:50 AM EDT [facility] Comment:Accuracy of a glucos e result obtained from a capillary whole blood specimen relies upon adequate, non-compromised capillary blood flow. If the capillary glucose result is not consistent with the patient's clinical signs and symptoms, glucose testing should be repeated with either an arterial or venous sample on the glucometer or sent to the main labortory for testing. Comment 08/27/2025 8:50 AM EDT [facility] [employer]ist ID Erma Montero 025 8:50 AM EDT [facility]ALTH[facility] LAB Device ID [id number] 08/27/2025 8:50 AM EDT [facility] Specimen Type POC Capillary 08/27/2025 8:50 AM EDT [facility] Blood Capillary blood specimen / Unknown 08/27/2025 8:39 AM EDT 08/27/2025 8:50 AM EDT us Juan Otero MD LAB POINT OF CARE TEST DOCKED DEVICE UNSOLICITED RESULTS Final Result [facility] [address] [place] [address] * XR Shoulder Right 1 View (08/27/2025 6:29 AM EDT) Anatomical Region Laterality Modality Upper Extremities, Shoulder Right Digi sarah Radiography Impressions 08/27/2025 8:01 AM EDT Redemonstration of comminuted humeral head neck fracture in grossly unchanged alignment compared to prior. CRITICAL RESULT: No. COMMUNICATION: Per this written report. Drafted by Shon Patton on 08/27/2025 8:00 AM Final report signed by Shon Patton on 08/27/2025 8:01 AM Narrative 08/27/2025 8:01 AM EDT CLINICAL INDICATION: monitor change TECHNIQUE: XR SHOULDER RIGHT 1 VIEW COMPARISON: August 24, 2025 FINDINGS: Single AP view of the shoulder demonstrates comminuted humeral head and neck fracture with medial displacement of the diaphysis and grossly similar alignment compared to prior. Mineralization along the greater trochanter could represent a component of calcific tendinosis. Moderate osteoarthrosis of the acromioclavicular joint. Soft tissue swelling is again noted overlying the shoulder. No newly identified fractures. Procedure Note Shon Patton MD - 08/27/2025 CLINICAL INDICATION: monitor change TECHNIQUE: XR SHOULDER RIGHT 1 VIEW COMPARISON: August 24, 2025 FINDINGS: Single AP view of the shoulder demonstrates comminuted humeral head andneck fracture with medial displacement of the diaphysis and grosslysimilar alignment compared to prior. Mineralization along the greatertrochanter could represent a component of calcific tendinosis. Moderateosteoarthrosis of the acromioclavicular joint. Soft tissue swelling isagain noted overlying the shoulder. No newly identified fractures. IMPRESSION: Redemonstration of comminuted humeral head neck fracture in grosslyunchanged alignment compared to prior. CRITICAL RESULT: No. COMMUNICATION: Per this written report. Drafted by Shon Patton on 08/27/2025 8:00 AM Final report signed by Shon Patton on 08/27/2025 8:01 AM us Juan Otero MD IMG XR PROCEDURES Final Re sult * (ABNORMAL) POCT glucose meter (08/26/2025 7:42 PM EDT) POCT Glucose 190(H) 74 - 99 mg/dL 08/26/2025 7:43 PM EDT [facility] Comment:Accuracy of a glucos e result obtained from a capillary whole blood specimen relies upon adequate, non-compromised capillary blood flow. If the capillary glucose result is not consistent with the patient's clinical signs and symptoms, glucose testing should be repeated with either an arterial or venous sample on the glucometer or sent to the main labortory for testing. Comment 08/26/2025 7:43 PM EDT [facility] [employer] Specialist ID Tonya Lane 08/26/20 7:43 PM EDT [facility] Device ID [id number] 08/26/2025 7:43 PM EDT [facility] Specimen Type POC Capillary 08/26/2025 7:43 PM EDT [facility] Blood Capillary blood specimen / Unknown 08/26/2025 7:42 PM EDT 08/26/2025 7:43 PM EDT Juan Otero MD LAB POINT OF CARE TEST DOCKED DEVICE UNSOLICITED RESULTS Final Result Performing Organization Address City/State/[place]UST Co de Phone Number [facility] [address] [place] [address] * (ABNORMAL) POCT glucose meter (08/26/2025 5:04 PM EDT) [facility] POCT Glucose 138(H) 74 - 99 mg/dL 08/26/2025 5:07 PM EDT [facility] Comment:Accuracy of a glucos e result obtained from a capillary whole blood specimen relies upon adequate, non-compromised capillary blood flow. If the capillary glucose result is not consistent with the patient's clinical signs and symptoms, glucose testing should be repeated with either an arterial or venous sample on the glucometer or sent to the main labortory for testing. Comment 08/26/2025 5:07 PM EDT [facility] [employer] ID Dory Albert 5:07 PM EDT [facility] Device ID [id number] 08/26/2025 5:07 PM EDT [facility] Specimen Type POC Capillary 08/26/2025 5:07 PM EDT [facility] Blood Capillary blood specimen / Unknown 08/26/2025 5:04 PM EDT 08/26/2025 5:07 PM EDT us Juan Otero MD LAB POINT OF CARE TEST DOCKED DEVICE UNSOLICITED RESULTS Final Result [facility] [address] [place] [address] * (ABNORMAL) Urinalysis with reflex microscopic (Culture NOT Included) (08/26/2025 3:24 PM EDT) Color, Urine Yellow LAB URINALYSIS - AUTOMATED METHOD 08/26/2025 3:54 PM EDT [facility] Clarity, Urine Clear LAB URINALYSIS - AUTOMATED METHOD 08/26/2025 3:54 PM EDT [facility] Spec [place], Urine >1.030(H) 1.005 - 1.030 LAB URINALYSIS - AUTOMATED METHOD 08/26/2025 3:54 PM EDT [facility] pH, Urine 6.5 5.0 - 8.0 LAB URINALYSIS - AUTOMATED METHOD 08/26/2025 3:54 PM EDT [facility] Protein, Urine 30(A) Negative mg/dL LAB URINALYSIS - AUTOMATED METHOD 08/26/2025 3:54 PM EDT [facility] Glucose, Urine >=1000(A) Negative mg/dL LAB URINALYSIS - AUTOMATED METHOD 08/26/2025 3:54 PM EDT [facility] Ketones, Urine 40(A) Negative mg/dL LAB URINALYSIS - AUTOMATED METHOD 08/26/2025 3:54 PM EDT [facility] Blood, Urine Negative Negative LAB URINALYSIS - AUTOMATED METHOD 08/26/2025 3:54 PM EDT [facility] Bilirubin, Urine Negative Negative LAB URINALYSIS - AUTOMATED METHOD 08/26/2025 3:54 PM EDT [facility] Urobilinogen, Urine 0.2 0.2 to 1.0 mg/dL LAB URINALYSIS - AUTOMATED METHOD 08/26/2025 3:54 PM EDT [facility] Leukocytes, Urine Negative Negative LAB URINALYSIS - AUTOMATED METHOD 08/26/2025 3:54 PM EDT [facility] Nitrite, Urine Negative Negative LAB URINALYSIS - AUTOMATED METHOD 08/26/2025 3:54 PM EDT [facility] Urine Urine specimen obtained by clean catch procedure / Unknown Non-blood Collection / Unknown 08/26/2025 3:24 PM EDT 08/26/2025 3:44 PM EDT us Jaida RIBEIRO LAB URINE ORDERABLES Ivone ivy Result [facility] [address] [place] [address] * ECHO, ADULT TRANSTHORACIC COMPLETE W/ CONTRAST (08/26/2025 3:08 PM EDT) BSA 1.83 m2 [facility] Height 165.1 [facility] Weight 75.3 [facility] ISC[facility] LV V1 VTI 14.3 cm [facility] ISC[facility] MV E Vmax 47.1 cm/s RE[facility]KAH ISCV MV A Vmax 86.1 cm/s RE[facility] ISCV MV E/A 0.5 cm/s [facility] ISCV PA V2 VTI 15.5 cm REBEKAH ISCV RV s' Usama 16.2 cm/s REBEKAH ISCV TAPSE 18 mm REBEKAH ISCV LV V1 Vmax 82.9 cm/s REBEKAH ISCV Ao V2 VTI 20.4 cm REBEKAH ISCV Ao mean PG 3 mmHg REBEKAH ISCV Ao V2 Vmax 118.0 cm/s REBEKAH ISCV Ao max PG 6 mmHg [facility] ISCV AV VTI Index 0.70 [facility] ISCV MV dec time 160 ms RE[facility] ISCV MV P1/2t 46 ms [facility] ISCV MVA(P1/2t) 4.7 cm2 RE[facility] ISC[facility] PA MG 2 mmHg RE[facility] ISC[facility] PA V2 Vmax 93.3 cm/s RE[facility]KAH ISCV PA PG 3 mmHg [facility] ISC[facility] LV mean PG 1.0 mmHG RE[facility] ISCV LV V1 mean 54.9 cm/sec RE[facility]KAH ISCV LV max PG 2.7 mmHg RE[facility]KAH ISCV AV-pr VR 0.7 RE[facility] ISCV Ao V2 mean 88.9 cm/s REBEKAH ISCV LAV(MOD-4ch) 28 mL RE[facility]KAH ISCV RV base 28 mm RE[facility] ISCV RV Mid 31 mm [facility] ISCV RA MOD 4Ch 13 mL RE[facility] ISCV NIMISHA 7 mL/m2 [facility] ISC[facility] IVC Max Size 13 mm REBEKAH ISCV LV EDV(MOD-4ch) 135 mL REBEKAH ISCV LV ESV(MOD4ch) 80 mL REBEKAH ISCV EF(MOD-sp4) 41 % REBEKAH ISCV LV EDV(MOD-2ch) 128 mL REBEKAH ISCV EDV(MOD-bp) 132 mL REBEKAH ISCV LV ESV(MOD2ch) 73 mL REBEKAH ISCV EF(MOD-sp2) 43 % REBEKAH ISCV ESV(MOD-bp) 77 mL REBEKAH ISCV EF(MOD-bp) 42 % [facility] ISCV LVLs ap2 6.7 mm [facility] ISCV RAP systole 3 mmHg RE[facility] ISCV LAV(MOD-bp) Indexed 14 mL/m2 RE[facility] ISCV LAV(MOD-2ch) 24 mL REBEKAH ISCV LVIDd 64 mm REBEKAH ISCV LVIDs 47 mm [facility] Ao Root Diam 32 mm [facility] ISCV LVOT diam 21 mm RE[facility] ISCV LVOT AREA 3.5 cm2 RE[facility] ISCV SV(LVOT) 50 mL [facility] ISCV GLADIS(I,D) 2.4 cm2 RE[facility] ISCV GLADIS(VTI)/BSA_ph l 1.3 cm2/m2 [facility] LV Lat e' Velocity 7.4 cm/s [facility] ISC[facility] LV Sept e' Usama 6.3 cm/s RE[facility]KAH ISCV Lat E/e' 6.4 RE[facility]KAH ISCV Sep E/e' 7.5 RE[facility]KAH ISCV Avg E/e' 6.9 REBEKAH ISCV Anatomical Region Laterality Modality Echocardiography Narrative 08/26/2025 3:23 PM EDT Left Ventricle: Based on the 2D volumes, the left ventricle is moderately dilated in size. No left ventricular mass or thrombus is seen. The left ventricular systolic function is mildly reduced. The LVEF as measured by biplane volume is 42%. The left ventricular filling pressure is normal. There is global hypokinesis of the left ventricle. Right Ventricle: The right ventricle is grossly normal in size. The right ventricular systolic function is grossly normal. Pericardium: No pericardial effusion. There is no recent study available for direct [id number] comparison. Left Ventricle Based on the 2D volumes, the left ventricle is moderately dilated in size. No left ventricular mass or thrombus is seen. The left ventricular systolic function is mildly reduced. The LVEF as measured by biplane volume is 42%. The left ventricular filling pressure is normal. There is global hypokinesis of the left ventricle. Right Ventricle The right ventricle is grossly normal in size. The right ventricular systolic function is grossly normal. Unable to estimate the right ventricular systolic pressure (RVSP) due to inadequate TR signal. Left Atrium The left atrial size is normal. The interatrial septum is intact with no evidence for an atrial septal defect. Right Atrium The right atrial size is normal. IVC/SVC Based on the IVC size and respiratory variation, the estimated right atrial pressure is 3mmHg. Mitral Valve The mitral valve leaflets are normal in appearance with no evidence of mitral valve prolapse. There is no mitral regurgitation. There is no mitral stenosis. Tricuspid Valve The tricuspid valve is grossly normal in appearance. There is no tricuspid regurgitation. There is no tricuspid stenosis. Aortic Valve The aortic valve appears grossly normal. There is no valvular regurgitation. There is no hemodynamically significant valvular aortic stenosis. Pulmonic Valve The pulmonic valve was not well visualized. There is no pulmonic regurgitation. There is no pulmonic stenosis. Pericardium No pericardial effusion. Great Vessels The aortic root is not well visualized. The main pulmonary artery is not well visualized. Study Details A complete transthoracic echocardiogram using two-dimensional (2D), m-mode, color and spectral flow Doppler imaging was performed. During the study the apical, parasternal and subcostal view was captured. Definity contrast was used during the study. Overall the study quality was adequate. The study was technically difficult due to patient's uncooperativeness. Height: 165.1 cm. Weight: 75.3 kg. BSA: 1.83 m2. The heart rhythm during this exam was most suggestive of a sinus rhythm. Study Recommendation There is no recent study available for direct [id number] comparison. us Nikole Mann MD CV ECHO PROCEDURES Final Result * (ABNORMAL) POCT glucose meter (08/26/2025 12:40 PM EDT) POCT Glucose 221(H) 74 - 99 mg/dL 08/26/2025 12:42 PM EDT [facility] Comment:Accuracy of a glucos e result obtained from a capillary whole blood specimen relies upon adequate, non-compromised capillary blood flow. If the capillary glucose result is not consistent with the patient's clinical signs and symptoms, glucose testing should be repeated with either an arterial or venous sample on the glucometer or sent to the main labortory for testing. Comment 08/26/2025 12:42 PM EDT [facility] [employer]ist ID Tiffanie Suarez 025 12:42 PM EDT [facility] Device ID [id number] 08/26/2025 12:42 PM EDT [facility] Specimen Type POC Capillary 08/26/2025 12:42 PM EDT [facility] Blood Capillary blood specimen / Unknown 08/26/2025 12:40 PM EDT 08/26/2025 12:42 PM EDT us Juan Otero MD LAB POINT OF CARE TEST DOCKED DEVICE UNSOLICITED RESULTS Final Result Performing Organization Address City/[facility] Co de Phone Number [facility] [address] [place] [address] * (ABNORMAL) POCT glucose meter (08/26/2025 8:15 AM EDT) [facility] POCT Glucose 167(H) 74 - 99 mg/dL 08/26/2025 8:17 AM EDT [facility] Comment:Accuracy of a glucos e result obtained from a capillary whole blood specimen relies upon adequate, non-compromised capillary blood flow. If the capillary glucose result is not consistent with the patient's clinical signs and symptoms, glucose testing should be repeated with either an arterial or venous sample on the glucometer or sent to the main labortory for testing. Comment 08/26/2025 8:17 AM EDT [facility] [employer] Specialist ID Tiffanie Suarez 025 8:17 AM EDT [facility] Device ID [id number] 08/26/2025 8:17 AM EDT [facility] Specimen Type POC Capillary 08/26/2025 8:17 AM EDT [facility] Blood Capillary blood specimen / Unknown 08/26/2025 8:15 AM EDT 08/26/2025 8:17 AM EDT us Juan Otero MD LAB POINT OF CARE TEST DOCKED DEVICE UNSOLICITED RESULTS Final Result Performing Organization Address City/[facility] Co de Phone Number [facility] [address] [place] [address] * (ABNORMAL) POCT glucose meter (08/26/2025 4:27 AM EDT) POCT Glucose 147(H) 74 - 99 mg/dL 08/26/2025 4:28 AM EDT [facility] Comment:Accuracy of a glucos e result obtained from a capillary whole blood specimen relies upon adequate, non-compromised capillary blood flow. If the capillary glucose result is not consistent with the patient's clinical signs and symptoms, glucose testing should be repeated with either an arterial or venous sample on the glucometer or sent to the main labortory for testing. Comment 08/26/2025 4:28 AM EDT [facility] Commercial Lawn Specialist ID Tonya Lane 08/26/20 4:28 AM EDT [facility] Device ID [id number] 08/26/2025 4:28 AM EDT [facility] Specimen Type POC Capillary 08/26/2025 4:28 AM EDT [facility] Blood Capillary blood specimen / Unknown 08/26/2025 4:27 AM EDT 08/26/2025 4:28 AM EDT Juan Otero MD LAB POINT OF CARE TEST DOCKED DEVICE UNSOLICITED RESULTS Final Result [facility] [address] [place] [address] * (ABNORMAL) POCT glucose meter (08/25/2025 8:36 PM EDT) [facility] POCT Glucose 255(H) 74 - 99 mg/dL 08/25/2025 8:38 PM EDT [facility] Comment:Accuracy of a glucos e result obtained from a capillary whole blood specimen relies upon adequate, non-compromised capillary blood flow. If the capillary glucose result is not consistent with the patient's clinical signs and symptoms, glucose testing should be repeated with either an arterial or venous sample on the glucometer or sent to the main labortory for testing. Comment 08/25/2025 8:38 PM EDT [facility] Commercial Lawn Specialist ID Tonya Lane 08/25/20 8:38 PM EDT [facility] Device ID [id number] 08/25/2025 8:38 PM EDT [facility] Specimen Type POC Capillary 08/25/2025 8:38 PM EDT [facility] Blood Capillary blood specimen / Unknown 08/25/2025 8:36 PM EDT 08/25/2025 8:38 PM EDT Juan Otero MD LAB POINT OF CARE TEST DOCKED DEVICE UNSOLICITED RESULTS Final Result Performing Organization Address [facility] de Phone Number [facility] [address] [place] [address] * (ABNORMAL) POCT glucose meter (08/25/2025 4:51 PM EDT) Pathologist [facility] POCT Glucose 145(H) 74 - 99 mg/dL 08/25/2025 4:52 PM EDT [facility] Comment:Accuracy of a glucos e result obtained from a capillary whole blood specimen relies upon adequate, non-compromised capillary blood flow. If the capillary glucose result is not consistent with the patient's clinical signs and symptoms, glucose testing should be repeated with either an arterial or venous sample on the glucometer or sent to the main labortory for testing. Comment 08/25/2025 4:52 PM EDT [facility] [employer] La[employer] Specialist ID Tiffanie Suarez 025 4:52 PM EDT [facility] Device ID [id number] 08/25/2025 4:52 PM EDT [facility] Specimen Type POC Capillary 08/25/2025 4:52 PM EDT [facility] Blood Capillary blood specimen / Unknown 08/25/2025 4:51 PM EDT 08/25/2025 4:52 PM EDT Juan Otero MD LAB POINT OF CARE TEST DOCKED DEVICE UNSOLICITED RESULTS Final Result Performing Organization Address City/[facility] Co de Phone Number [facility] [address] [place] [address] * (ABNORMAL) POCT glucose meter (08/25/2025 12:38 PM EDT) Pathologist [facility] POCT Glucose 113(H) 74 - 99 mg/dL 08/25/2025 12:40 PM EDT [facility] Comment:Accuracy of a glucos e result obtained from a capillary whole blood specimen relies upon adequate, non-compromised capillary blood flow. If the capillary glucose result is not consistent with the patient's clinical signs and symptoms, glucose testing should be repeated with either an arterial or venous sample on the glucometer or sent to the main labortory for testing. Comment 08/25/2025 12:40 PM EDT [facility] [employer] Specialist ID Tiffanie Suarez 025 12:40 PM EDT [facility] Device ID [id number] 08/25/2025 12:40 PM EDT [facility] Specimen Type POC Capillary 08/25/2025 12:40 PM EDT [facility] Blood Capillary blood specimen / Unknown 08/25/2025 12:38 PM EDT 08/25/2025 12:40 PM EDT us Juan Otero MD LAB POINT OF CARE TEST DOCKED DEVICE UNSOLICITED RESULTS Final Result Performing Organization Address City/[facility]/ZIP Co de Phone Number [facility] [address] [place] [id number] * (ABNORMAL) POCT glucose meter (08/25/2025 8:13 AM EDT) [facility] POCT Glucose 239(H) 74 - 99 mg/dL 08/25/2025 8:15 AM EDT [facility] Comment:Accuracy of a glucos e result obtained from a capillary whole blood specimen relies upon adequate, non-compromised capillary blood flow. If the capillary glucose result is not consistent with the patient's clinical signs and symptoms, glucose testing should be repeated with either an arterial or venous sample on the glucometer or sent to the main labortory for testing. Comment 08/25/2025 8:15 AM EDT [facility] [employer] Specialist ID Tiffanie Suarez 025 8:15 AM EDT [facility] Device ID [id number] 08/25/2025 8:15 AM EDT [facility] Specimen Type POC Capillary 08/25/2025 8:15 AM EDT [facility] Blood Capillary blood specimen / Unknown 08/25/2025 8:13 AM EDT 08/25/2025 8:15 AM EDT us Juan Otero MD LAB POINT OF CARE TEST DOCKED DEVICE UNSOLICITED RESULTS Final Result [facility] [address] [place] [address] * (ABNORMAL) POCT glucose meter (08/24/2025 8:36 PM EDT) [facility] POCT Glucose 134(H) 74 - 99 mg/dL 08/24/2025 8:38 PM EDT [facility] Comment:Accuracy of a glucos e result obtained from a capillary whole blood specimen relies upon adequate, non-compromised capillary blood flow. If the capillary glucose result is not consistent with the patient's clinical signs and symptoms, glucose testing should be repeated with either an arterial or venous sample on the glucometer or sent to the main labortory for testing. Comment 08/24/2025 8:38 PM EDT [facility] [employer] Specialist ID Farooq Ruiz 025 8:38 PM EDT [facility] Device ID [id number] 08/24/2025 8:38 PM EDT [facility] Specimen Type POC Capillary 08/24/2025 8:38 PM EDT [facility] Blood Capillary blood specimen / Unknown 08/24/2025 8:36 PM EDT 08/24/2025 8:38 PM EDT Nikole Mann MD LAB POINT OF CARE TE ST DOCKED DEVICE UNSOLICITED RESULTS Final Result Performing Organization Address City/[facility]/ZIP Co de Phone Number [facility] [address] [place] [address] * (ABNORMAL) POCT glucose meter (08/24/2025 4:54 PM EDT) [facility] POCT Glucose 157(H) 74 - 99 mg/dL 08/24/2025 4:56 PM EDT [facility] Comment:Accuracy of a glucos e result obtained from a capillary whole blood specimen relies upon adequate, non-compromised capillary blood flow. If the capillary glucose result is not consistent with the patient's clinical signs and symptoms, glucose testing should be repeated with either an arterial or venous sample on the glucometer or sent to the main labortory for testing. Comment 08/24/2025 4:56 PM EDT [facility] [employer]ist ID Ramona Bennett 08/24/2025 4:56 PM EDT [facility] Device ID [id number] 08/24/2025 4:56 PM EDT [facility] Specimen Type POC Capillary 08/24/2025 4:56 PM EDT [facility] Blood Capillary blood specimen / Unknown 08/24/2025 4:54 PM EDT 08/24/2025 4:56 PM EDT Nikole Mann MD LAB POINT OF CARE TE ST DOCKED DEVICE UNSOLICITED RESULTS Final Result [facility] [address] [place] [address] * VAS US Carotid Duplex Bilateral (08/24/2025 3:18 PM EDT) Anatomical Region Laterality Modality Head, Neck, Vascular Ultrasound Impressions 08/25/2025 3:03 PM EDT Right: Mild homogeneous plaque is noted in the carotid bifurcation and proximal ICA. Flow is present in the CCA, ICA, and ECA. ICA velocities do not demonstrate evidence of a hemodynamically significant stenosis (less than 50%). Left: No significant carotid plaque is demonstrated. Flow is present in the CCA, ICA, and ECA. ICA velocities do not demonstrate evidence of a hemodynamically significant stenosis (less than 50%). Vertebral artery flow is antegrade, bilaterally. Subclavian artery flow is multiphasic, bilaterally. COMMUNICATION: Per this written report. Preliminary report signed by Samra Balderas RVT on 08/24/2025 3:33 PM By electronically signing this report, I, the attending physician, attest that I have personally reviewed the images/data for the above examination(s) and I agree with the final edited report. Drafted by Samra Balderas RVT on 08/24/2025 3:28 PM Final report signed by America Ellis MD on 08/25/2025 3:03 PM Narrative 08/25/2025 3:03 PM EDT CLINICAL INDICATION: Syncope TECHNIQUE: Non-invasive, real time duplex exam of the extracranial carotid circulation with Doppler ultrasonic waveform and spectral analysis was performed. COMPARISON: None. FINDINGS: Right: CCA: 108 cm/sec. ECA: 121 cm/sec. ICA: 95 cm/sec. Vertebral A: 44 cm/sec. Subclavian 247 cm/sec. Left: CCA: 99 cm/sec. ECA: 161 cm/sec. ICA: 99 cm/sec. Vertebral A: 68 cm/sec. Subclavian A: 147 cm/sec. Procedure Note America Ellis MD - 08/25/2025 CLINICAL INDICATION: Syncope TECHNIQUE: Non-invasive, real time duplex exam of the extracranial carotidcirculation with Doppler ultrasonic waveform and spectral analysis wasperformed. COMPARISON: None. FINDINGS: Right: CCA: 108 cm/sec. ECA: 121 cm/sec. ICA: 95 cm/sec. Vertebral A: 44 cm/sec. Subclavian 247 cm/sec. Left: CCA: 99 cm/sec. ECA: 161 cm/sec. ICA: 99 cm/sec. Vertebral A: 68 cm/sec. Subclavian A: 147 cm/sec. IMPRESSION: Right: Mild homogeneous plaque is noted in the carotid bifurcation andproximal ICA. Flow is present in the CCA, ICA, and ECA. ICA velocitiesdo not demonstrate evidence of a hemodynamically significant stenosis(less than 50%). Left: No significant carotid plaque is demonstrated. Flow is present inthe CCA, ICA, and ECA. ICA velocities do not demonstrate evidence of ahemodynamically significant stenosis (less than 50%). Vertebral artery flow is antegrade, bilaterally. Subclavian artery flow is multiphasic, bilaterally. COMMUNICATION: Per this written report. Preliminary report signed by Samra Balderas RVT on 08/24/2025 3:33 PM By electronically signing this report, I, the attending physician, attestthat I have personally reviewed the images/data for the aboveexamination(s) and I agree with the final edited report. Drafted by Samra Balderas RVT on 08/24/2025 3:28 PM Final report signed by America Ellis MD on 08/25/2025 3:03 PM us Nikole Mann MD CV VASCULAR PROCEDURES Final Re sult * (ABNORMAL) POCT glucose meter (08/24/2025 12:10 PM EDT) POCT Glucose 202(H) 74 - 99 mg/dL 08/24/2025 12:15 PM EDT [facility] Comment:Accuracy of a glucos e result obtained from a capillary whole blood specimen relies upon adequate, non-compromised capillary blood flow. If the capillary glucose result is not consistent with the patient's clinical signs and symptoms, glucose testing should be repeated with either an arterial or venous sample on the glucometer or sent to the main labortory for testing. Comment 08/24/2025 12:15 PM EDT [facility] [employer]ist ID Ramona Bennett 08/24/2025 12:15 PM EDT [facility] LAB Device ID [id number] 08/24/2025 12:15 PM EDT [facility] Specimen Type POC Capillary 08/24/2025 12:15 PM EDT [facility] Blood Capillary blood specimen / Unknown 08/24/2025 12:10 PM EDT 08/24/2025 12:15 PM EDT Nikole Mann MD LAB POINT OF CARE TE ST DOCKED DEVICE UNSOLICITED RESULTS Final Result [facility] [address] [place] [address] * (ABNORMAL) Hemoglobin A1c (08/24/2025 3:59 AM EDT) Hemoglobin A1c 6.0(H) <5.7 % 08/24/2025 5:13 PM EDT [facility] Blood Venous blood specimen / Unknown Venipuncture / Unknown 08/24/2025 3:59 AM EDT 08/24/2025 4:14 AM EDT Narrative [facility] - 08/24/2025 5:13 PM EDT HA1C Interpretive Data: Diagnosis of Diabetes: Diabetic > or = 6.5% Pre-diabetic 5.7 to 6.4% Non-diabetic < or = 5.6% Glycemic Targets for Type I and Type II Diabetics: Non- Adults <7.0% Adults <6.0% Children and Adolescents <7.5% Source: [place] [employer]. Standards of medical care in diabetes,2017. Diabetes Care.2017:40 (suppl 1):S1-S135. us Brigid RIBEIRO LAB BLOOD ORDERABLES Final Result Performing Organization Address City/[facility]/ZIP Co de Phone Number [facility] [address] [place] [address] * Phosphorus (08/24/2025 3:59 AM EDT) Phosphorus, Plasma 4.1 2.5 - 4.5 mg/dL 08/24/2025 5:01 AM EDT [facility] Blood Venous blood specimen / Unknown Venipuncture / Unknown 08/24/2025 3:59 AM EDT 08/24/2025 4:22 AM EDT Kwesi Yang MD LAB BLOOD ORDERABLES Final R esult Performing Organization Address [facility] Co de Phone Number [facility] [address] [place] [address] * Magnesium, Plasma (08/24/2025 3:59 AM EDT) Magnesium, Plasma 2.2 1.9 - 2.4 mg/dL 08/24/2025 5:01 AM EDT [facility] Blood Venous blood specimen / Unknown Venipuncture / Unknown 08/24/2025 3:59 AM EDT 08/24/2025 4:22 AM EDT Kwesi Yang MD LAB BLOOD ORDERABLES Final R esult Performing Organization Address City/[facility] Co de Phone Number [facility] [address] [place] [address] * (ABNORMAL) Basic metabolic panel (08/24/2025 3:59 AM EDT) Glucose, Plasma 167(H) 74 - 99 mg/dL 08/24/2025 5:01 AM EDT [facility] BUN, Plasma 29(H) 8 - 23 mg/dL 08/24/2025 5:01 AM EDT [facility] Creatinine, Plasma 0.86 0.60 - 1.10 mg/dL 08/24/2025 5:01 AM EDT [facility] BUN/Creatinine Ratio 34 08/24/2025 5:01 AM EDT [facility] Sodium, Plasma 141 136 - 145 mmol/L 08/24/2025 5:01 AM EDT [facility] Potassium, Plasma 4.2 3.6 - 4.9 mmol/L 08/24/2025 5:01 AM EDT [facility] Chloride, Plasma 107 97 - 107 mmol/L 08/24/2025 5:01 AM EDT [facility] CO2, Plasma 19(L) 22 - 29 mmol/L 08/24/2025 5:01 AM EDT [facility] Anion Gap 15 6 - 16 mmol/L 08/24/2025 5:01 AM EDT [facility] Total Calcium, Plasma 9.0 8.9 - 10.2 mg/dL 08/24/2025 5:01 AM EDT [facility] eGFRcr 74.6 mL/min/1.7 3m*2 08/24/2025 5:01 AM EDT [facility] Comment:Reported eGFRcr in m L/min/1.73m2 is based the CKD-EPI 2020 equation that does not use a race coefficient. Blood Venous blood specimen / Unknown Venipuncture / Unknown 08/24/2025 3:59 AM EDT 08/24/2025 4:22 AM EDT us Kwesi Yang MD LAB BLOOD ORDERABLES Final R esult [facility] [address] [place] [address] * (ABNORMAL) CBC W/O Differential (08/24/2025 3:59 AM EDT) WBC Count 13.28(H) 3.70 - 10.30 10*3/uL LAB HEMATOLOGY METHOD 08/24/2025 4:18 AM EDT [facility] RBC Count 3.56(L) 3.90 - 5.20 10*6/uL LAB HEMATOLOGY METHOD 08/24/2025 4:18 AM EDT [facility] HGB 11.0(L) 11.2 - 15.7 g/dL LAB HEMATOLOGY METHOD 08/24/2025 4:18 AM EDT [facility] HCT 33.3(L) 34.0 - 45.0 % LAB HEMATOLOGY METHOD 08/24/2025 4:18 AM EDT [facility] Platelet Count 225 155 - 369 10*3/uL LAB HEMATOLOGY METHOD 08/24/2025 4:18 AM EDT [facility] MCV 94 79 - 98 fL LAB HEMATOLOGY METHOD 08/24/2025 4:18 AM EDT [facility] MCH 30.9 26.0 - 32.0 pg LAB HEMATOLOGY METHOD 08/24/2025 4:18 AM EDT [facility] MCHC 33.0 30.7 - 35.5 g/dL LAB HEMATOLOGY METHOD 08/24/2025 4:18 AM EDT [facility] RDW 12.5 11.5 - 14.5 % LAB HEMATOLOGY METHOD 08/24/2025 4:18 AM EDT [facility] MPV 9.3 8.8 - 12.5 fL LAB HEMATOLOGY METHOD 08/24/2025 4:18 AM EDT [facility] nRBC 0.0 <=0.0 per 100 WBCs LAB HEMATOLOGY METHOD 08/24/2025 4:18 AM EDT [facility] Blood Venous blood specimen / Unknown Venipuncture / Unknown 08/24/2025 3:59 AM EDT 08/24/2025 4:14 AM EDT us Kewsi Yang MD LAB BLOOD ORDERABLES Final R esult [facility] [address] [place] [address] * CT Shoulder Right wo IV Contrast (08/24/2025 2:13 AM EDT) Anatomical Region Laterality Modality Shoulder Right Computed Tomogra phy Impressions 08/24/2025 7:31 AM EDT Redemonstration of comminuted, displaced and intra-articular fracture in the proximal humerus, with grossly unchanged alignment. CRITICAL RESULT: No. COMMUNICATION: Per this written report. Drafted by Manuel Jerome MD on 08/24/2025 7:26 AM Final report signed by Manuel Jerome MD on 08/24/2025 7:31 AM Narrative 08/24/2025 7:31 AM EDT CLINICAL INDICATION: eval fx TECHNIQUE: Multiple axial CT images were obtained through the right elbow without contrast. The axial CT data set was used to generate high resolution reformatted images in the coronal and sagittal planes to facilitate diagnostic accuracy and treatment planning. Total DLP (Dose-Length Product): 230.48 mGy.cm. Please note: The reported value represents the total of one or more individual components during the CT acquisition on this date and at this time, and as such, the same value may appear in more than one CT report depending on the interpreting/reporting physicians. COMPARISON: Same date plain film. FINDINGS: Diffuse osteopenia. Redemonstration of comminuted, moderate to severely displaced and intra- articular fracture in the proximal humerus, with involvement of the greater and lesser humeral tuberosity, humeral head and neck. [id number] osteoarthritis the glenohumeral joint. Moderate osteoarthritis of the acromioclavicular joint. There is a moderate joint effusion in the elbow. Soft tissue swelling and fullness adjacent to the humeral fracture, as consistent with hematoma/muscular injury. Otherwise diffuse subcutaneous fat stranding. Diffuse subcutaneous fat stranding. Chondrocalcinosis seen. Heterotopic calcification over the projection of the infraspinatus tendon, which may suggest calcific tendinopathy. Procedure Note Alexy Jerome, Manuel Mackey MD - 08/24/2025 CLINICAL INDICATION: eval fx TECHNIQUE: Multiple axial CT images were obtained through the right elbow withoutcontrast. The axial CT data set was used to generate high resolutionreformatted images in the coronal and sagittal planes to facilitatediagnostic accuracy and treatment planning. Total DLP (Dose-Length Product): 230.48 mGy.cm. Please note: The reportedvalue represents the total of one or more individual components during theCT acquisition on this date and at this time, and as such, the same valuemay appear in more than one CT report depending on theinterpreting/reporting physicians. COMPARISON: Same date plain film. FINDINGS: Diffuse osteopenia. Redemonstration of comminuted, moderate to severely displaced andintra-articular fracture in the proximal humerus, with involvement of thegreater and lesser humeral tuberosity, humeral head and neck. [id number] osteoarthritis the glenohumeral joint. Moderateosteoarthritis of the acromioclavicular joint. There is a moderate joint effusion in the elbow. Soft tissue swelling and fullness adjacent to the humeral fracture, asconsistent with hematoma/muscular injury. Otherwise diffuse subcutaneousfat stranding. Diffuse subcutaneous fat stranding. Chondrocalcinosis seen. Heterotopic calcification over the projection ofthe infraspinatus tendon, which may suggest calcific tendinopathy. IMPRESSION: Redemonstration of comminuted, displaced and intra-articular fracture inthe proximal humerus, with grossly unchanged alignment. CRITICAL RESULT: No. COMMUNICATION: Per this written report. Drafted by Manuel Jerome MD on 08/24/2025 7:26 AM Final report signed by Manuel Jerome MD on 57:31 AM us Brad De MD IMG CT PROCEDURES Final Resu lt * XR Shoulder Right 2+ Views (08/24/2025 1:19 AM EDT) Anatomical Region Laterality Modality Upper Extremities, Shoulder Right Digi sarah Radiography Impressions 08/24/2025 1:43 AM EDT Similar alignment of comminuted right humeral neck fracture and greater tuberosity fracture. CRITICAL RESULT: No. COMMUNICATION: Per this written report. Preliminary report signed by Jacey Foreman MD on 08/24/2025 1:23 AM By electronically signing this report, I, the attending physician, attest that I have personally reviewed the images/data for the above examination(s) and agree with the final edited report. Drafted by Jacey Foreman MD on 08/24/2025 1:20 AM Final report signed by Blair Carter MD on 08/24/2025 1:43 AM Narrative 08/24/2025 1:43 AM EDT CLINICAL INDICATION: uprights in cuff and collar TECHNIQUE: XR SHOULDER RIGHT 2+ VIEWS COMPARISON: Right shoulder radiographs 08/23/2025 FINDINGS: Similar alignment of comminuted right humeral neck fracture with medial displacement and mild impaction of the distal fracture fragment. Redemonstrated greater tuberosity fracture. Soft tissue swelling of the visualized proximal right upper extremity. Procedure Note Blair Carter MD - 08/24/2025 CLINICAL INDICATION: uprights in cuff and collar TECHNIQUE: XR SHOULDER RIGHT 2+ VIEWS COMPARISON: Right shoulder radiographs 08/23/2025 FINDINGS: Similar alignment of comminuted right humeral neck fracture with medialdisplacement and mild impaction of the distal fracture fragment.Redemonstrated greater tuberosity fracture. Soft tissue swelling of thevisualized proximal right upper extremity. IMPRESSION: Similar alignment of comminuted right humeral neck fracture and greatertuberosity fracture. CRITICAL RESULT: No. COMMUNICATION: Per this written report. Preliminary report signed by Jacey Foreman MD on 08/24/2025 1:23 AM By electronically signing this report, I, the attending physician, attestthat I have personally reviewed the images/data for the aboveexamination(s) and agree with the final edited report. Drafted by Jacey Foreman MD on 08/24/2025 1:20 AM Final report signed by Blair Carter MD on 08/24/2025 1:43 AM us Brad De MD IMG XR PROCEDURES Final Resu lt * ECG Adult (08/24/2025 12:17 AM EDT) EKG DIAGNOSIS CLASS Abnormal MUSE ECG Ventricular Rate 101 BPM MUSE ECG Atrial Rate 101 BPM MUSE ECG VT Interval 200 ms MUSE ECG QRSD Interval 96 ms MUSE ECG QT Interval 518 ms MUSE ECG QTC Interval 671 ms MUSE ECG P [place] 66 degrees MUSE ECG R [place] 27 degrees MUSE ECG T Wave [place] 129 degrees MUSE ECG Diagnosis Poor data quality, interpretation may be adversely affected MUSE ECG Diagnosis Sinus tachycardia MUSE ECG Diagnosis T wave abnormality, consider lateral ischemia MUSE ECG Diagnosis Prolonged QT MUSE ECG Diagnosis Abnormal ECG MUSE ECG Diagnosis MUSE ECG Diagnosis Confirmed by Quique Peacock ([id number]) on 08/24/2025 10:19:31 AM MUSE ECG 08/24/2025 12:1 7 AM EDT 08/24/2025 10:19 AM EDT us Kwesi Yang MD ECG ORDERABLES Final Result MUSE ECG * XR Elbows Right 3+ View (08/23/2025 11:28 PM EDT) Anatomical Region Laterality Modality Upper Extremities, Elbow Right Digital Radiography Impressions 08/23/2025 11:46 PM EDT Comminuted displaced right humeral neck fracture with extension into the greater tuberosity CRITICAL RESULT: No. COMMUNICATION: Per this written report. Drafted by Melvin Oseguera MD on 08/23/2025 11:43 PM Final report signed by Melvin Oseguera MD on 08/23/2025 11:46 PM Narrative 08/23/2025 11:46 PM EDT CLINICAL INDICATION: fall from standing, point tenderness, known fx TECHNIQUE: XR HUMERUS RIGHT 2+ VIEWS, XR ELBOW RIGHT 3+ VIEWS, XR SHOULDER RIGHT 2+ VIEWS, XR CLAVICLE RIGHT COMPARISON: Outside exam 5 hours previous FINDINGS: Right clavicle: No acute fracture or malalignment. Right shoulder and humerus: Comminuted right humeral neck fracture with medial displacement and mild impaction of the distal fracture fragment with associated fracture involvement of the greater tuberosity region. Humeral head is located. Soft tissue swelling along the lateral aspect of the deltoid region. The mid and distal aspect of the right humerus has an unremarkable appearance. Lobular soft tissue calcification at the supraspinatus area consistent with chronic tendinosis Right elbow: No acute fracture or malalignment. Unremarkable soft tissues. Procedure Note Melvin Oseguera MD - 08/23/2025 CLINICAL INDICATION: fall from standing, point tenderness, known fx TECHNIQUE: XR HUMERUS RIGHT 2+ VIEWS, XR ELBOW RIGHT 3+ VIEWS, XR SHOULDER RIGHT 2+VIEWS, XR CLAVICLE RIGHT COMPARISON: Outside exam 5 hours previous FINDINGS: Right clavicle: No acute fracture or malalignment. Right shoulder and humerus: Comminuted right humeral neck fracture withmedial displacement and mild impaction of the distal fracture fragmentwith associated fracture involvement of the greater tuberosity region.Humeral head is located. Soft tissue swelling along the lateral aspect ofthe deltoid region. The mid and distal aspect of the right humerus has anunremarkable appearance. Lobular soft tissue calcification at thesupraspinatus area consistent with chronic tendinosis Right elbow: No acute fracture or malalignment. Unremarkable softtissues. IMPRESSION: Comminuted displaced right humeral neck fracture with extension into thegreater tuberosity CRITICAL RESULT: No. COMMUNICATION: Per this written report. Drafted by Melvin Oseguera MD on 08/23/2025 11:43 PM Final report signed by Melvin Oseguera MD on 08/23/2025 11:46 PM us Flaquito Lerma MD IMG XR PROCEDURES Final Result * XR Humerus Right 2+ Views (08/23/2025 11:28 PM EDT) Anatomical Region Laterality Modality Upper Extremities, Humerus Right Digit al Radiography Impressions 08/23/2025 11:46 PM EDT Comminuted displaced right humeral neck fracture with extension into the greater tuberosity CRITICAL RESULT: No. COMMUNICATION: Per this written report. Drafted by Melvin Oseguera MD on 08/23/2025 11:43 PM Final report signed by Melvin Oseguera MD on 08/23/2025 11:46 PM Narrative 08/23/2025 11:46 PM EDT CLINICAL INDICATION: fall from standing, point tenderness, known fx TECHNIQUE: XR HUMERUS RIGHT 2+ VIEWS, XR ELBOW RIGHT 3+ VIEWS, XR SHOULDER RIGHT 2+ VIEWS, XR CLAVICLE RIGHT COMPARISON: Outside exam 5 hours previous FINDINGS: Right clavicle: No acute fracture or malalignment. Right shoulder and humerus: Comminuted right humeral neck fracture with medial displacement and mild impaction of the distal fracture fragment with associated fracture involvement of the greater tuberosity region. Humeral head is located. Soft tissue swelling along the lateral aspect of the deltoid region. The mid and distal aspect of the right humerus has an unremarkable appearance. Lobular soft tissue calcification at the supraspinatus area consistent with chronic tendinosis Right elbow: No acute fracture or malalignment. Unremarkable soft tissues. Procedure Note Melvin Oseguera MD - 08/23/2025 CLINICAL INDICATION: fall from standing, point tenderness, known fx TECHNIQUE: XR HUMERUS RIGHT 2+ VIEWS, XR ELBOW RIGHT 3+ VIEWS, XR SHOULDER RIGHT 2+VIEWS, XR CLAVICLE RIGHT COMPARISON: Outside exam 5 hours previous FINDINGS: Right clavicle: No acute fracture or malalignment. Right shoulder and humerus: Comminuted right humeral neck fracture withmedial displacement and mild impaction of the distal fracture fragmentwith associated fracture involvement of the greater tuberosity region.Humeral head is located. Soft tissue swelling along the lateral aspect ofthe deltoid region. The mid and distal aspect of the right humerus has anunremarkable appearance. Lobular soft tissue calcification at thesupraspinatus area consistent with chronic tendinosis Right elbow: No acute fracture or malalignment. Unremarkable softtissues. IMPRESSION: Comminuted displaced right humeral neck fracture with extension into thegreater tuberosity CRITICAL RESULT: No. COMMUNICATION: Per this written report. Drafted by Melvin Oseguera MD on 08/23/2025 11:43 PM Final report signed by Melvin Oseguera MD on 08/23/2025 11:46 PM us Flaquito Lerma MD IMG XR PROCEDURES Final Result * XR Shoulder Right 2+ Views (08/23/2025 11:28 PM EDT) Anatomical Region Laterality Modality Upper Extremities, Shoulder Right Digi sarah Radiography Impressions 08/23/2025 11:46 PM EDT Comminuted displaced right humeral neck fracture with extension into the greater tuberosity CRITICAL RESULT: No. COMMUNICATION: Per this written report. Drafted by Melvin Oseguera MD on 08/23/2025 11:43 PM Final report signed by Melvin Oseguera MD on 08/23/2025 11:46 PM Narrative 08/23/2025 11:46 PM EDT CLINICAL INDICATION: fall from standing, point tenderness, known fx TECHNIQUE: XR HUMERUS RIGHT 2+ VIEWS, XR ELBOW RIGHT 3+ VIEWS, XR SHOULDER RIGHT 2+ VIEWS, XR CLAVICLE RIGHT COMPARISON: Outside exam 5 hours previous FINDINGS: Right clavicle: No acute fracture or malalignment. Right shoulder and humerus: Comminuted right humeral neck fracture with medial displacement and mild impaction of the distal fracture fragment with associated fracture involvement of the greater tuberosity region. Humeral head is located. Soft tissue swelling along the lateral aspect of the deltoid region. The mid and distal aspect of the right humerus has an unremarkable appearance. Lobular soft tissue calcification at the supraspinatus area consistent with chronic tendinosis Right elbow: No acute fracture or malalignment. Unremarkable soft tissues. Procedure Note Melvin Oseguera MD - 08/23/2025 CLINICAL INDICATION: fall from standing, point tenderness, known fx TECHNIQUE: XR HUMERUS RIGHT 2+ VIEWS, XR ELBOW RIGHT 3+ VIEWS, XR SHOULDER RIGHT 2+VIEWS, XR CLAVICLE RIGHT COMPARISON: Outside exam 5 hours previous FINDINGS: Right clavicle: No acute fracture or malalignment. Right shoulder and humerus: Comminuted right humeral neck fracture withmedial displacement and mild impaction of the distal fracture fragmentwith associated fracture involvement of the greater tuberosity region.Humeral head is located. Soft tissue swelling along the lateral aspect ofthe deltoid region. The mid and distal aspect of the right humerus has anunremarkable appearance. Lobular soft tissue calcification at thesupraspinatus area consistent with chronic tendinosis Right elbow: No acute fracture or malalignment. Unremarkable softtissues. IMPRESSION: Comminuted displaced right humeral neck fracture with extension into thegreater tuberosity CRITICAL RESULT: No. COMMUNICATION: Per this written report. Drafted by Melvin Oseguera MD on 08/23/2025 11:43 PM Final report signed by Melvin Oseguera MD on 08/23/2025 11:46 PM us Flaquito Lerma MD IMG XR PROCEDURES Final Result * XR Clavicle Right (08/23/2025 11:28 PM EDT) Anatomical Region Laterality Modality Body, Clavicle Right Digital Radiogra phy Impressions 08/23/2025 11:46 PM EDT Comminuted displaced right humeral neck fracture with extension into the greater tuberosity CRITICAL RESULT: No. COMMUNICATION: Per this written report. Drafted by Melvin Oseguera MD on 08/23/2025 11:43 PM Final report signed by Melvin Oseguera MD on 08/23/2025 11:46 PM Narrative 08/23/2025 11:46 PM EDT CLINICAL INDICATION: fall from standing, point tenderness, known fx TECHNIQUE: XR HUMERUS RIGHT 2+ VIEWS, XR ELBOW RIGHT 3+ VIEWS, XR SHOULDER RIGHT 2+ VIEWS, XR CLAVICLE RIGHT COMPARISON: Outside exam 5 hours previous FINDINGS: Right clavicle: No acute fracture or malalignment. Right shoulder and humerus: Comminuted right humeral neck fracture with medial displacement and mild impaction of the distal fracture fragment with associated fracture involvement of the greater tuberosity region. Humeral head is located. Soft tissue swelling along the lateral aspect of the deltoid region. The mid and distal aspect of the right humerus has an unremarkable appearance. Lobular soft tissue calcification at the supraspinatus area consistent with chronic tendinosis Right elbow: No acute fracture or malalignment. Unremarkable soft tissues. Procedure Note Melvin Oseguera MD - 08/23/2025 CLINICAL INDICATION: fall from standing, point tenderness, known fx TECHNIQUE: XR HUMERUS RIGHT 2+ VIEWS, XR ELBOW RIGHT 3+ VIEWS, XR SHOULDER RIGHT 2+VIEWS, XR CLAVICLE RIGHT COMPARISON: Outside exam 5 hours previous FINDINGS: Right clavicle: No acute fracture or malalignment. Right shoulder and humerus: Comminuted right humeral neck fracture withmedial displacement and mild impaction of the distal fracture fragmentwith associated fracture involvement of the greater tuberosity region.Humeral head is located. Soft tissue swelling along the lateral aspect ofthe deltoid region. The mid and distal aspect of the right humerus has anunremarkable appearance. Lobular soft tissue calcification at thesupraspinatus area consistent with chronic tendinosis Right elbow: No acute fracture or malalignment. Unremarkable softtissues. IMPRESSION: Comminuted displaced right humeral neck fracture with extension into thegreater tuberosity CRITICAL RESULT: No. COMMUNICATION: Per this written report. Drafted by Melvin Oseguera MD on 08/23/2025 11:43 PM Final report signed by Melvin Oseguera MD on 08/23/2025 11:46 PM Flaquito Lerma MD IMG XR PROCEDURES Final Result documented in this encounter Visit Diagnoses Diagnosis Fall, initial encounter Fx humeral neck, right, closed, initial encounter Delirium Other alteration of consciousness Fall from standing, initial encounter Closed displaced fracture of surgical neck of right humerus Dizziness Dizziness and giddiness Tendinopathy Unspecified disorder of synovium, tendon, and bursa Primary hypertension Unspecified essential hypertension Diabetes mellitus Type II or unspecified type diabetes mellitus without mention of complication, not stated as uncontrolled CKD (chronic kidney disease) Chronic kidney disease, unspecified Chronic heart failure with mildly reduced ejection fraction (HFmrEF, 41-49%) Delirium Other alteration of consciousness Anxiety and depression Overactive bladder Hypertonicity of bladder GERD (gastroesophageal reflux disease) Esophageal reflux Chest pain Unspecified chest pain Osteoporosis Unspecified osteoporosis documented in this encounter Admitting Diagnoses Diagnosis Fall from standing, initial encounter documented in this encounter Administered Medications Inactive Administered Medications - up to 3 most recent administrations Medication Order MAR Action Action Date Dose Rate Site acetaminophen (Tylenol) tablet 1,000 mg 1,000 mg, Oral, Once, 1 dose, On Sat08/24/25 at 0015, STAT Given 08/24/2025 12:38 AM EDT 1,000 mg acetaminophen (Tylenol) tablet 1,000 mg 1,000 mg, Oral, Every 6 hours scheduled, First dose on Sat08/24/25 at 0200, Until Discontinued, Routine Given 09/01/2025 12:25 PM EDT 1,000 mg Given 09/01/2025 5:32 AM EDT 1,000 mg Given 08/31/2025 11:57 PM EDT 1,000 mg buPROPion XL (Wellbutrin XL) 24 hr tablet 300 mg 300 mg, Oral, Every morning, First dose on Sat08/26/25 at 0900, Until Discontinued Given 09/01/2025 9:03 AM EDT 300 mg Given 08/30/2025 8:45 AM EDT 300 mg Given 08/29/2025 9:12 AM EDT 300 mg busPIRone (Buspar) tablet 10 mg 10 mg, Oral, 2 times daily, First dose on Sat08/25/25 at 2100, Until Discontinued, Routine Given 09/01/2025 9:0 4 AM EDT 10 mg Given 08/31/2025 8:54 PM EDT 10 mg Given 08/30/2025 9:19 PM EDT 10 mg carvedilol (Coreg) tablet 3.125 mg 3.125 mg, Oral, 2 times daily with meals, First dose on Sat08/25/25 at 1730, Until Discontinued, Routine Given 09/01/2025 9:04 AM EDT 3.125 mg Given 08/31/2025 5:24 PM EDT 3.125 mg Given 08/30/2025 5:56 PM EDT 3.125 mg dextrose 10 % (D10W) bolus 125 mL 125 mL, Intravenous, Every 15 min PRN, Starting on Sat08/24/25 at 1133, Until Sat09/01/25 at 1735, Administer over 15 Minutes, Routine, low blood sugar BG 51-89 mg/dL dextrose 10 % (D10W) bolus 250 mL 250 mL, Intravenous, Every 15 min PRN, Starting on Sat08/24/25 at 1133, Until Sat09/01/25 at 1735, Administer over 15 Minutes, Routine, PRN low blood sugar BG =/<50 mg/dL enoxaparin (Lovenox) syringe 30 mg 30 mg, Subcutaneous, 2 times daily, First dose on Sat08/24/25 at 1230, Until Discontinued, Routine Given 09/01/2025 9:03 AM EDT 30 mg Left Upper Arm (Back ) Given 08/31/2025 8:53 PM EDT 30 mg Le ft Upper Arm (Back) Given 08/31/2025 8:52 AM EDT 30 mg Le ft Lower Abdomen FLUoxetine (PROzac) capsule 40 mg 40 mg, Oral, 2 times daily, First dose on Sat08/25/25 at 2100, Until Discontinued Given 09/01/2025 9:04 AM EDT 40 mg Given 08/31/2025 8:54 PM EDT 40 mg Given 08/30/2025 9:19 PM EDT 40 mg glucagon (human recombinant) injection 1 mg 1 mg, Intramuscular, Every 15 min PRN, Starting on Sat08/24/25 at 1133, Until Sat09/01/25 at 1735, Routine, low blood sugar per Hypoglycemia Prevention and Treatment protocol glucose (Glutose) 40 % oral gel 15-30 grams of glucose 15-30 grams of glucose, Sublingual, Every 15 min PRN, Starting on Sat08/24/25 at 1133, Until Sat09/01/25 at 1735, Routine, low blood sugar, per Hypoglycemia Prevention and Treatment protocol heparin (porcine) injection 5,000 Units 5,000 Units, Subcutaneous, Every 8 hours scheduled, First dose on Sat08/24/25 at 0200, Until Discontinued, Routine Given 08/24/2025 3:19 AM EDT 5,000 Units Left Upper Abdomen HYDROmorphone (Dilaudid) injection 0.5 mg 0.5 mg, Intravenous, Once, 1 dose, On Sat08/23/25 at 2230, STAT Given 08/23/2025 10:36 PM EDT 0.5 mg hydrOXYzine HCl (Atarax) tablet 25 mg 25 mg, Oral, Every 6 hours PRN, Starting on Sat08/25/25 at 1244, Until Sat09/01/25 at 1735, Routine, anxiety Given 09/01/2025 1:37 AM EDT 25 mg Given 08/30/2025 9:19 PM EDT 25 mg Given 08/29/2025 11:49 PM EDT 25 mg insulin lispro (Admelog) 100 units/mL injection - Correction - Standard Dose 0-5 Units, Subcutaneous, 3 times daily with meals, First dose on Sat08/24/25 at 1230, Until Discontinued, Routine Given 09/01/2025 12:25 PM EDT 2 Units Left Upper Arm (Back ) Given 09/01/2025 9:04 AM EDT 1 Units Le ft Upper Arm (Back) Given 08/31/2025 5:49 PM EDT 3 Units Le ft Upper Arm (Back) insulin lispro (Admelog) injection - Correction - Nighttime Dose 0-3 Units, Subcutaneous, 2 times nightly (2100 & 0300), First dose on Sat08/24/25 at 2100, Until Discontinued, Routine Given 08/25/2025 10:24 PM EDT 1 Units Left Lower Abdomen lidocaine (Lidoderm) 5 % patch 1 patch 1 patch, Apply externally, Once, 1 dose, On Sat08/24/25 at 0015, Administer over 12 Hours, STAT Medication Applied 08/24/2025 12:38 AM EDT 1 patch Right Arm methocarbamol (Robaxin) tablet 1,000 mg 1,000 mg, Oral, Every 8 hours, First dose (after last modification) on Sat08/27/25 at 0800, Until Discontinued, Routine Given 09/01/2025 9:04 AM EDT 1,000 mg Given 08/31/2025 11:57 PM EDT 1,000 mg Given 08/30/2025 11:05 PM EDT 1,000 mg methocarbamol (Robaxin) tablet 500 mg 500 mg, Oral, Every 8 hours, First dose on Sat08/24/25 at 0200, Until Discontinued, Routine Given 08/27/2025 12:52 AM EDT 500 mg Given 08/26/2025 5:50 PM EDT 500 mg Given 08/26/2025 9:36 AM EDT 500 mg methocarbamol (Robaxin) tablet 750 mg 750 mg, Oral, Once, 1 dose, On Sat08/24/25 at 0015, STAT Given 08/24/2025 12:38 AM EDT 750 mg midazolam (Versed) injection 1 mg 1 mg, Intravenous, Once, 1 dose, On Sat08/26/25 at 1300, Routine Given 08/26/2025 12:28 PM EDT 1 mg mirabegron ER (Myrbetriq) tablet 25 mg 25 mg, Oral, Daily, First dose on Sat08/26/25 at 0900, Until Discontinued Given 09/01/2025 9:04 AM EDT 25 mg Given 08/30/2025 8:45 AM EDT 25 mg Given 08/29/2025 9:15 AM EDT 25 mg morphine PF 4 mg 4 mg, Intravenous, Every 4 hours PRN, Starting on Sat08/31/25 at 0920, Until Sat09/01/25 at 1735, Routine, severe pain Given 08/31/2025 8:54 PM EDT 4 mg Given 08/31/2025 9:28 AM EDT 4 mg OLANZapine zydis (ZyPREXA) disintegrating tablet 5 mg 5 mg, Sublingual, Once, 1 dose, On Sat08/31/25 at 1600, Routine Given 08/31/2025 3:37 PM EDT 5 mg ondansetron (Zofran) injection 4 mg 4 mg, Intravenous, Once, 1 dose, On Sat08/23/25 at 2230, STAT Given 08/23/2025 10:38 PM EDT 4 mg oxyCODONE (Roxicodone) immediate release tablet 10 mg 10 mg, Oral, Every 4 hours PRN, Starting on Sat08/27/25 at 0656, Until Sat09/01/25 at 1735, Routine, severe pain Given 09/01/2025 1:37 AM EDT 10 mg Given 08/30/2025 10:27 PM EDT 10 mg Given 08/30/2025 5:55 PM EDT 10 mg oxyCODONE (Roxicodone) immediate release tablet 5 mg 5 mg, Oral, Once, 1 dose, On Sat08/24/25 at 0015, STAT Given 08/24/2025 12:39 AM EDT 5 mg oxyCODONE (Roxicodone) immediate release tablet 5 mg 5 mg, Oral, Every 6 hours PRN, Starting on Sat08/24/25 at 0151, Until Sat08/24/25 at 1611, Routine, severe pain, Moderate/Severe Pain > or =3: CPOT; > or =4: FLACC, PAINAD, NPASS, NRS, Solano-Mauro Faces; > or =5: DVPRS, NIPS Given 08/24/2025 9:37 AM EDT 5 mg oxyCODONE (Roxicodone) immediate release tablet 5 mg 5 mg, Oral, Every 4 hours PRN, Starting on Sat08/24/25 at 1610, Until Sat08/27/25 at 0656, Routine, severe pain, Moderate/Severe Pain > or =3: CPOT; > or =4: FLACC, PAINAD, NPASS, NRS, Solano-Mauro Faces; > or =5: DVPRS, NIPS Given 08/27/2025 5:05 AM EDT 5 mg Given 08/26/2025 7:55 PM EDT 5 mg Given 08/26/2025 1:24 AM EDT 5 mg oxyCODONE (Roxicodone) immediate release tablet 5 mg 5 mg, Oral, Every 4 hours PRN, Starting on Sat08/27/25 at 0656, Until Sat09/01/25 at 1735, Routine, Moderate/Severe Pain > or =3: CPOT; > or =4: FLACC, PAINAD, NPASS, NRS, Solano-Mauro Faces; > or =5: DVPRS, NIPS Given 08/28/2025 8:53 PM EDT 5 mg pantoprazole (Protonix) EC tablet 40 mg 40 mg, Oral, Daily, First dose on Sat08/25/25 at 1345, Until Discontinued Given 09/01/2025 9:04 AM EDT 40 mg Given 08/30/2025 8:45 AM EDT 40 mg Given 08/29/2025 9:12 AM EDT 40 mg perflutren lipid microspheres (Definity) injection 4.9552 mg 4.9552 mg (rounded from 4.9291 mg = 10 mcL/kg 75.6 kg), Intravenous, Once in imaging, 1 dose, Starting on Sat08/26/25 at 1508, Until Sat08/26/25 at 1509, Routine Given 08/26/2025 3:09 PM EDT 4.9552 m g polyethylene glycol (Miralax) packet 17 g 17 g, Oral, Daily, First dose on Sat08/25/25 at 0900, Until Discontinued, Routine Given 09/01/2025 9:03 AM EDT 17 g Given 08/30/2025 8:44 AM EDT 17 g Given 08/26/2025 9:36 AM EDT 17 g potassium chloride CR (Klor-Con) ER tablet 20 mEq 20 mEq, Oral, Once, 1 dose, On Sat08/31/25 at 1545, Routine Given 08/31/2025 5:24 PM EDT 20 mEq potassium chloride CR (Klor-Con) ER tablet 40 mEq 40 mEq, Oral, Once, 1 dose, On Sat08/31/25 at 1430, Routine Given 08/31/2025 3:15 PM EDT 40 mEq pravastatin (Pravachol) tablet 20 mg 20 mg, Oral, Daily, First dose on Sat08/25/25 at 1345, Until Discontinued Given 09/01/2025 9:03 AM EDT 20 mg Given 08/30/2025 8:45 AM EDT 20 mg Given 08/29/2025 9:11 AM EDT 20 mg QUEtiapine (SEROquel) tablet 25 mg 25 mg, Oral, Nightly PRN, Starting on Sat08/26/25 at 2004, Until Sat08/27/25 at 0652, Routine, agitation Given 08/27/2025 12:52 AM EDT 25 mg QUEtiapine (SEROquel) tablet 50 mg 50 mg, Oral, Once, 1 dose, On Sat08/27/25 at 1315, Routine Given 08/27/2025 12:55 PM EDT 50 mg senna-docusate (Shira-Colace) 8.6-50 MG per tablet 1 tablet 1 tablet, Oral, 2 times daily, First dose on Sat08/24/25 at 2100, Until Discontinued, Routine Given 08/30/2025 8:45 AM EDT 1 tablet Given 08/28/2025 8:54 PM EDT 1 tablet Given 08/27/2025 8:00 PM EDT 1 tablet sodium chloride 0.9 % flush 10 mL 10 mL, Intravenous, Every 12 hours, First dose on Sat08/24/25 at 0200, Until Discontinued, Routine Given 09/01/2025 1:01 PM EDT 10 mL Given 08/31/2025 3:30 PM EDT 10 mL Given 08/31/2025 2:23 AM EDT 10 mL sodium chloride 0.9 % flush 10 mL 10 mL, Intravenous, As needed, Starting on Sat08/24/25 at 0150, Until Sat09/01/25 at 1735, Routine, line care documented in this encounter Active and Recently Administered Medications Times are shown in EDT. Scheduled Medication Order 08/30/2025 08/31/2025 09/01/2025 acetaminophen (Tylenol) tablet 1,000 mg 1,000 mg, Oral, Every 6 hours scheduled, First dose on Sat08/24/25 at 0200, Until Discontinued, Routine 0605 (Given - Provider: Bety Paz RN)1242 (Given - Provider: Yumiko Mays RN)1755 (Given - Provider: Yumiko Mays RN)2305 (Given - Provider: Bety Paz RN) 0633 (Not Given - Provider: Bety Paz RN - Reason: Patient/Family/Repr esentative Refused)1259 (Not Given - Provider: Yumiko Mays RN - Reason: Patient/Family/Repr esentative Refused)1724 (Given - Provider: Yumiko Mays RN)2357 (Given - Provider: Gissell Hummel, THEODORE) 0532 (Given - Provider: Gissell Hummel, THEODORE)1225 (Given - Provider: Cheryl Dial RN) buPROPion XL (Wellbutrin XL) 24 hr tablet 300 mg 300 mg, Oral, Every morning, First dose on Sat08/26/25 at 0900, Until Discontinued 0845 (Given - Provider: Yumiko Mays RN) 0900 (Not Given - Provider: Yumiko Mays RN - Reason: Hold for condition: must add comment - Comment: Patient started choking on pills. Provider notified.) 09 (Given - Provider: Cheryl Dial RN) busPIRone (Buspar) tablet 10 mg 10 mg, Oral, 2 times daily, First dose on Sat08/25/25 at 2100, Until Discontinued, Routine 0845 (Given - Provider: Yumiko Mays RN)2118 (Given - Provider: Bety Paz, RN) 0852 (Not Given - Provider: Yumiko Mays RN - Reason: Hold for condition: must add comment - Comment: patient started choking on pills, provider notified.)2053 (Given - Provider: Gissell Hummel RN) 09 (Given - Provider: Cheryl Dial RN) carvedilol (Coreg) tablet 3.125 mg 3.125 mg, Oral, 2 times daily with meals, First dose on Sat08/25/25 at 1730, Until Discontinued, Routine 0845 (Given - Provider: Yumiko Mays RN)175 (Given - Provider: Yumiko Mays RN) 0852 (Not Given - Provider: Yumiko Mays RN - Reason: Hold for condition: must add comment - Comment: patient started choking on pills. provider notified.)1724 (Given - Provider: Yumiko Mays RN) 0904 (Given - Provider: Cheryl Dial RN)1730 (Canceled Entry - Provider: Automatic Discharge Provider - Comment: Automatically canceled at discontinue of medication order) enoxaparin (Lovenox) syringe 30 mg 30 mg, Subcutaneous, 2 times daily, First dose on Sat08/24/25 at 1230, Until Discontinued, Routine 0845 (Given - Provider: Yumiko Mays RN)2118 (Given - Provider: Bety Paz, THEODORE) 0852 (Given - Provider: Yumiko Mays RN)2052 (Given - Provider: Gissell Hummel, THEODORE) 0903 (Given - Provider: Cheryl Dial RN) FLUoxetine (PROzac) capsule 40 mg 40 mg, Oral, 2 times daily, First dose on Sat08/25/25 at 2100, Until Discontinued 0845 (Given - Provider: Yumiko Mays RN)2118 (Given - Provider: Bety Paz RN) 0851 (Not Given - Provider: Yumiko Mays RN - Reason: Hold for condition: must add comment - Comment: patient started choking on pills. provider notified.)2053 (Given - Provider: Gissell Hummel RN) 0904 (Given - Provider: Cheryl Dial RN) insulin lispro (Admelog) 100 units/mL injection - Correction - Standard Dose 0-5 Units, Subcutaneous, 3 times daily with meals, First dose on Sat08/24/25 at 1230, Until Discontinued, Routine 0945 (Given - Provider: Yumiko Mays RN - Comment: conflic of care)1242 (Given - Provider: Yumiko Mays RN)1755 (Given - Provider: Yumiko Mays RN) 0900 (Given - Provider: Yumiko Mays RN)1259 (Not Given - Provider: Yumiko Mays RN - Reason: Order parameters not met)1749 (Given - Provider: Yumiko Mays RN) 0904 (Given - Provider: Cheryl Dial RN)1225 (Given - Provider: Cheryl Dial RN)1730 (Canceled Entry - Provider: Automatic Discharge Provider - Comment: Automatically canceled at discontinue of medication order) insulin lispro (Admelog) injection - Correction - Nighttime Dose 0-3 Units, Subcutaneous, 2 times nightly (2100 & 0300), First dose on Sat08/24/25 at 2100, Until Discontinued, Routine 022 (Not Given - Provider: Bety Paz RN - Reason: Order parameters not met)2128 (Not Given - Provider: Bety Paz RN - Reason: Order parameters not met) 219 (Not Given - Provider: Bety Paz RN - Reason: Order parameters not met)2054 (Not Given - Provider: Gissell Hummel RN - Reason: Order parameters not met) 200 (Not Given - Provider: Gissell Hummel RN - Reason: Order parameters not met) methocarbamol (Robaxin) tablet 1,000 mg 1,000 mg, Oral, Every 8 hours, First dose (after last modification) on Sat08/27/25 at 0800, Until Discontinued, Routine 0845 (Given - Provider: Yumiko Mays RN)1649 (Not Given - Provider: Yumiko Mays RN - Reason: Patient/Family/Repre sentative Refused)2305 (Given - Provider: Bety Paz RN) 0851 (Not Given - Provider: Yumiko Mays RN - Reason: Hold for condition: must add comment - Comment: patient started choking on pills. provider notified.)1512 (Not Given - Provider: Yumiko Mays RN - Reason: Patient/Family/Repr esentative Refused)2357 (Given - Provider: Gissell Hummel RN) 0904 (Given - Provider: Cheryl Dial RN)1600 (Canceled Entry - Provider: Automatic Discharge Provider - Comment: Automatically canceled at discontinue of medication order) mirabegron ER (Myrbetriq) tablet 25 mg 25 mg, Oral, Daily, First dose on Sat08/26/25 at 0900, Until Discontinued 0845 (Given - Provider: Yumiko Mays RN) 0852 (Not Given - Provider: Yumiko Mays RN - Reason: Hold for condition: must add comment - Comment: patient started choking on pills. provider notified.) 09 (Given - Provider: Cheryl Dial RN) OLANZapine zydis (ZyPREXA) disintegrating tablet 5 mg (COMPLETED) 5 mg, Sublingual, Once, 1 dose, On Sat08/31/25 at 1600, Routine 1537 (Given - Provider: Yumiko Mays RN) pantoprazole (Protonix) EC tablet 40 mg 40 mg, Oral, Daily, First dose on Sat08/25/25 at 1345, Until Discontinued 0845 (Given - Provider: Yumiko Mays RN) 0852 (Not Given - Provider: Yumiko Mays RN - Reason: Hold for condition: must add comment - Comment: patient started choking on pills. provider notified.) 09 (Given - Provider: Cheryl Dial RN) polyethylene glycol (Miralax) packet 17 g 17 g, Oral, Daily, First dose on Sat08/25/25 at 0900, Until Discontinued, Routine 0844 (Given - Provider: Yumiko Mays RN) 0852 (Not Given - Provider: Yumiko Mays RN - Reason: Hold for condition: must add comment - Comment: patient started choking on pills. provider notified.) 09 (Given - Provider: Cheryl Dial RN) potassium chloride CR (Klor-Con) ER tablet 20 mEq (COMPLETED)(Linked Group 1) 20 mEq, Oral, Once, 1 dose, On Sat08/31/25 at 1545, Routine 1724 (Given - Provider: Yumiko Mays RN - Comment: last dose given late due to patient refusal) potassium chloride CR (Klor-Con) ER tablet 40 mEq (COMPLETED)(Linked Group 1) 40 mEq, Oral, Once, 1 dose, On Sat08/31/25 at 1430, Routine 1515 (Given - Provider: Yumiko Mays RN) pravastatin (Pravachol) tablet 20 mg 20 mg, Oral, Daily, First dose on Sat08/25/25 at 1345, Until Discontinued 0845 (Given - Provider: Yumiko Mays RN) 0852 (Not Given - Provider: Yumiko Mays RN - Reason: Hold for condition: must add comment - Comment: patient started choking on pills. provider notified.) 902 (Given - Provider: Cheryl Dial RN) senna-docusate (Shira-Colace) 8.6-50 MG per tablet 1 tablet 1 tablet, Oral, 2 times daily, First dose on Sat08/24/25 at 2100, Until Discontinued, Routine 0845 (Given - Provider: Yumiko Mays RN)2128 (Not Given - Provider: Bety Paz RN - Reason: Patient/Family/Repre sentative Refused) 0851 (Not Given - Provider: Yumiko Mays RN - Reason: Hold for condition: must add comment - Comment: patient started choking on pills. provider notified.)2053 (Not Given - Provider: Gissell Hummel RN - Reason: Patient/Family/Repr esentative Refused) 0903 (Not Given - Provider: Cheryl Dial RN - Reason: Patient/Family/Represe ntative Refused) sodium chloride 0.9 % flush 10 mL(Linked Group 2) 10 mL, Intravenous, Every 12 hours, First dose on Sat08/24/25 at 0200, Until Discontinued, Routine 0117 (Given - Provider: Bety Paz RN)1441 (Given - Provider: Yumiko Mays, THEODORE) 0223 (Given - Provider: Bety Paz RN)1530 (Given - Provider: Yumiko Mays, RN) 0200 (Canceled Entry - Provider: Gissell Hummel, THEODORE)1301 (Given - Provider: Cheryl Dial RN) PRN Medication Order 08/30/2025 08/31/2025 09/01/2025 dextrose 10 % (D10W) bolus 125 mL(Linked Group 3) 125 mL, Intravenous, Every 15 min PRN, Starting on Sat08/24/25 at 1133, Until Sat09/01/25 at 1735, Administer over 15 Minutes, Routine, low blood sugar BG 51-89 mg/dL dextrose 10 % (D10W) bolus 250 mL(Linked Group 3) 250 mL, Intravenous, Every 15 min PRN, Starting on Sat08/24/25 at 1133, Until Sat09/01/25 at 1735, Administer over 15 Minutes, Routine, PRN low blood sugar BG =/<50 mg/dL glucagon (human recombinant) injection 1 mg(Linked Group 3) 1 mg, Intramuscular, Every 15 min PRN, Starting on Sat08/24/25 at 1133, Until Sat09/01/25 at 1735, Routine, low blood sugar per Hypoglycemia Prevention and Treatment protocol glucose (Glutose) 40 % oral gel 15-30 grams of glucose(Linked Group 3) 15-30 grams of glucose, Sublingual, Every 15 min PRN, Starting on Sat08/24/25 at 1133, Until Sat09/01/25 at 1735, Routine, low blood sugar, per Hypoglycemia Prevention and Treatment protocol hydrOXYzine HCl (Atarax) tablet 25 mg 25 mg, Oral, Every 6 hours PRN, Starting on Sat08/25/25 at 1244, Until Sat09/01/25 at 1735, Routine, anxiety 2119 (Given - Provider: Bety Paz RN) 0137 (Given - Provider: Gissell Hummel, THEODORE) morphine PF 4 mg 4 mg, Intravenous, Every 4 hours PRN, Starting on Sat08/31/25 at 0920, Until Sat09/01/25 at 1735, Routine, severe pain 0928 (Given - Provider: Yumiko Mays RN)2053 (Given - Provider: Gissell Hummel, THEODORE) oxyCODONE (Roxicodone) immediate release tablet 10 mg(Linked Group 4) 10 mg, Oral, Every 4 hours PRN, Starting on Sat08/27/25 at 0656, Until Sat09/01/25 at 1735, Routine, severe pain 0605 (Given - Provider: Bety Paz RN)1242 (Given - Provider: Yumiko Mays, THEODORE)175 (Given - Provider: Yumiko Mays, THEODORE)222 (Given - Provider: Bety Paz RN) 0851 (Not Given - Provider: Yumiko Mays RN - Reason: Hold for condition: must add comment - Comment: patient started choking on pills. provider notified. Wasted in Pyxis with THEODORE Lagunas) 013 (Given - Provider: Gissell Hummel, THEODORE) oxyCODONE (Roxicodone) immediate release tablet 5 mg(Linked Group 4) 5 mg, Oral, Every 4 hours PRN, Starting on Sat08/27/25 at 0656, Until Sat09/01/25 at 1735, Routine, Moderate/Severe Pain > or =3: CPOT; > or =4: FLACC, PAINAD, NPASS, NRS, Solano-Mauro Faces; > or =5: DVPRS, NIPS 0605 (See Alternative - Provider: Bety Paz RN)1242 (See Alternative - Provider: Yumiko Mays, THEODORE)1755 (See Alternative - Provider: Yumiko Mays, THEODORE)222 (See Alternative - Provider: Bety Paz, RN) 0851 (See Alternative - Provider: Yumiko Mays, THEODORE) 013 (See Alternative - Provider: Gissell Hummel, THEODORE) sodium chloride 0.9 % flush 10 mL(Linked Group 2) 10 mL, Intravenous, As needed, Starting on Sat08/24/25 at 0150, Until Sat09/01/25 at 1735, Routine, line care Linked Groups Order Group 1: potassium chloride CR (Klor-Con) ER tablet 40 mEq (COMPLETED)Jump to med 40 mEq, Oral, Once, 1 dose, On Sat08/31/25 at 1430, Routine Followed by potassium chloride CR (Klor-Con) ER tablet 20 mEq (COMPLETED)Jump to med 20 mEq, Oral, Once, 1 dose, On Sat08/31/25 at 1545, Routine Group 2: Insert peripheral IV (CANCELED) Once, On Sat08/24/25 at 0151, For 1 occurrence And Saline lock IV (CANCELED) Once, On Sat08/24/25 at 0151, For 1 occurrence And sodium chloride 0.9 % flush 10 mLJump to med 10 mL, Intravenous, Every 12 hours, First dose on Sat08/24/25 at 0200, Until Discontinued, Routine And sodium chloride 0.9 % flush 10 mLJump to med 10 mL, Intravenous, As needed, Starting on Sat08/24/25 at 0150, Until Sat09/01/25 at 1735, Routine, line care Group 3: glucose (Glutose) 40 % oral gel 15-30 grams of glucoseJump to med 15-30 grams of glucose, Sublingual, Every 15 min PRN, Starting on Sat08/24/25 at 1133, Until Sat09/01/25 at 1735, Routine, low blood sugar, per Hypoglycemia Prevention and Treatment protocol Or dextrose 10 % (D10W) bolus 125 mLJump to med 125 mL, Intravenous, Every 15 min PRN, Starting on Sat08/24/25 at 1133, Until Sat09/01/25 at 1735, Administer over 15 Minutes, Routine, low blood sugar BG 51-89 mg/dL Or dextrose 10 % (D10W) bolus 250 mLJump to med 250 mL, Intravenous, Every 15 min PRN, Starting on Sat08/24/25 at 1133, Until Sat09/01/25 at 1735, Administer over 15 Minutes, Routine, PRN low blood sugar BG =/<50 mg/dL Or glucagon (human recombinant) injection 1 mgJump to med 1 mg, Intramuscular, Every 15 min PRN, Starting on Sat08/24/25 at 1133, Until Sat09/01/25 at 1735, Routine, low blood sugar per Hypoglycemia Prevention and Treatment protocol Group 4: oxyCODONE (Roxicodone) immediate release tablet 5 mgJump to med 5 mg, Oral, Every 4 hours PRN, Starting on Sat08/27/25 at 0656, Until Sat09/01/25 at 1735, Routine, Moderate/Severe Pain > or =3: CPOT; > or =4: FLACC, PAINAD, NPASS, NRS, Solano-Mauro Faces; > or =5: DVPRS, NIPS Or oxyCODONE (Roxicodone) immediate release tablet 10 mgJump to med 10 mg, Oral, Every 4 hours PRN, Starting on Sat08/27/25 at 0656, Until Sat09/01/25 at 1735, Routine, severe pain documented in this encounter Additional Health Concerns Assessment Noted Time A fall risk assessment has been complete d for the patient 09/02/2023 4:03 PM EDT A Body Mass Index follow-up plan has been documented for the patient 09/01/2025 1:30 PM EDT documented as of this encounter Care Teams Frame Builder Relationship Specialty Start Date End Date Brad Hassan MD [address] [place] [address] [place] [id number] PCP - General Internal Medicine 08/08/23 Greta Simpson DO [facility] [id number] Obstetrics and Gynecology 07/03/23 documented as of this encounter
[2025-10-11] VITALS (7 sets, daily range): BP systolic 147–172; BP diastolic 72–83; PULSE 79–92; RESP 20; TEMP 36.6; O2SAT 95–97; BMI 25.4
--- OUTSIDE RECORDS SUMMARY | 2025-10-11 21:03 | XMS_ITS | Encounter Summary ---
Author Organization [facility] Address [address] [place] [address] Care Team Providers Care Cylinder Dyer Name Role Phone Greta Simpson DO Unavailable [phone] Brad Hassan MD Primary Care Provider [phone] Encounter Details Date Type Department Care Team [...] health care facility (including now)? No 08/24/2025 [facility] Utilities Answer Date Recorded In the [...] drink first t fabian in the morning (EYE-MARKETING OPERATIONS CONSULTANT) to steady your nerves or to get [...] as of this encounter Functional Status * Question Answer Date of Assessment Author Precautions Fall risk 08/26/2025 10:00 PM EDT Nova Handy RN * Calculated C-SSRS Risk Score (Lifetime/Recent) Answer Date of Assessment Author No Risk Indicated 08/26/2025 8:00 PM EDT Nova Dickson RN * Question Answer Date of Assessment Author 1. Wish to be (Past 1 Month) No 08/26/2025 8:00 PM EDT Yeimi Dickson RN 2. Non-Specific Active Suici giorgi Thoughts (Past 1 Month) No 08/26/2025 8:00 PM EDT Eyad Dickson RN 6. Suicidal Behavior (Lifetime) No 8:00 PM EDT Nova Dickson RN documented as of this encounter Mental Status * Question Answer Entry Date Author Precautions Fall risk 08/26/2025 10:00 PM EDT Nova Handy RN documented in this encounter Plan of Treatment Not on file documented as of this encounter Visit Diagnoses Not on filedocumented in this encounter Additional Health Concerns Assessment Noted Time A fall risk assessment has been complete d for the patient 09/02/2023 4:03 PM EDT A Body Mass Index follow-up plan has been documented for the patient 09/01/2025 1:30 PM EDT documented as of this encounter Care Teams Cylinder Dyer Relationship Specialty Start Date End Date Brad Hassan MD [address] [place] [address] PCP - General Internal Medicine 08/08/23 Greta Simpson DO [facility] [address] Obstetrics and Gynecology 07/03/23 documented as of this encounter
--- OUTSIDE RECORDS SUMMARY | 2025-10-11 21:03 | XMS_ITS | Encounter Summary ---
Author Organization [facility] Address [address] [place] [address] Care Team Providers Care Community Arts Worker Name Role Phone Greta Simpson DO Unavailable [phone] Brad Hassan MD Primary Care Provider [phone] Encounter Details Date Type Department Care Team [...] any time in the past 12 m [facility], were you homeless or living in a longterm (including now)? No 08/24/2025 [facility] Utilities Answer Date Recorded In the [...] drink first t fabian in the morning (EYE-THREAD CLIPPER) to steady your nerves or to get [...] Answer Date of Assessment Author Precautions [facility] 08/31/2025 8:00 PM EDT Gissell Hummel RN * Calculated C-SSRS Risk Score (Lifetime/Recent) [...] Question Answer Entry Date Author Precautions Fall risk;Environmen sarah surveillance 08/31/2025 8:00 PM EDT Gissell Hummel RN documented in this encounter Plan of [...] documented as of this encounter Care Teams Community Arts Worker Relationship Specialty Start Date End Date Brad Hassan MD [address] [place] [address] PCP - General Internal Medicine 08/08/23 Greta Simpson DO [facility] [address] Obstetrics and Gynecology 07/03/23 documented as of this encounter
--- OUTSIDE RECORDS SUMMARY | 2025-10-11 21:04 | XMS_ITS | Encounter Summary ---
Author Organization Healthcare Address [address] [place] [address] Care Team Providers Care Cleaner Carpet And Upholstery Name Role Phone Greta Simpson DO Unavailable [phone] Brad Hassan MD Primary Care Provider [phone] Encounter Details Date Type Department Care Team (Late st Contact Info) Description 08/23/2025 Orders Only External Location [address] [place] [phone] Provider, External Social History Tobacco Use Types [...] any time in the past [address] [facility], were you homeless or living in a retirement (including now)? No 08/24/2025 [facility] Utilities Answer Date Recorded In the past 12 months has th e [employer], gas, oil, or water company threatened to [...] drink first t fabian in the morning (EYE-MACHINE FINISHER) to steady your nerves or to get [...] Question Answer Date of Assessment Author Precautions Environmental survei llance;Fall risk 08/27/2025 8:00 AM EDT Vivian Keller, RN * Calculated C-SSRS Risk Score (Lifetime/Recent) Answer Date of Assessment Author No Risk Indicated 08/27/2025 8:00 AM EDT Vivian Keller, THEODORE * Question Answer Date of Assessment Author 1. Wish to be (Past 1 Month) No 025 8:00 AM EDT Vivian Keller, RN 2. Non-Specific Active Suici giorgi Thoughts (Past 1 Month) No 08/27/2025 8:00 AM EDT Vivian Keller , THEODORE 6. Suicidal Behavior (Lifetime) No 8:00 AM EDT Vivian Keller, RN documented as of this encounter Mental Status * Question Answer Entry Date Author Precautions Environmental survei llance;Fall risk 08/27/2025 8:00 AM EDT Vivian Keller RN documented in this encounter Plan of Treatment Not on file documented as of this encounter Procedures Procedure [...] documented as of this encounter Care Teams Cleaner Carpet And Upholstery Relationship Specialty Start Date End Date Brad Hassan MD [address] [place] [address] PCP - General Internal Medicine 08/08/23 Greta Simpson DO [facility] G4 [address] Obstetrics and Gynecology 07/03/23 documented as of this encounter
--- OUTSIDE RECORDS SUMMARY | 2025-10-11 21:04 | XMS_ITS | Clinical Summary ---
Author Organization [facility] Address [address] [place] [address] Care Team Providers Care Title Officer Name Role Phone Greta Simpson DO Unavailable [phone] Brad Hassan MD Primary Care Provider [phone] Allergies Active Allergy Reactions Criticality Noted Date [...] 2 tablets by mouth every 8 hours. Active naloxone (Narcan) 4 mg/0.1 mL nasal spray 1. Give 1 spray in nostril for no/slow breathing or cannot wake after opioid use 2. Call 911 3. Repeat in other nostril if symptoms continue 1 each Active senna-docusate (Shira-Colace) 8.6-50 MG tablet Take 1 tablet by mouth 2 times a day. 5 10/01/20 25 Active Problems Problem Noted Date Diagnosed [...] S/p reduction at [facility] Ortho following, appreciate [facility] RUE F/u x-rays on 08/28, operative plans pending Assessment & Plan (08/25/2025 1:51 PM EDT): R humeral neck fx S/p reduction at [facility] Ortho following, appreciate [facility] RUE, anticipate non-op Assessment & Plan (08/24/2025 2:19 AM EDT): R humeral neck fx S/p reduction at [facility] Ortho following, appreciate [facility] RUE Dizziness 08/24/2025 Assessment & Plan [...] T 6 Tertiary 08/24 Assessment & Plan (08/29/2025 11:07 AM EDT): Possible orthostatic fall Admit to SGT 6 Tertiary 08/24 Assessment & Plan (08/28/2025 1:35 PM EDT): Possible orthostatic fall Admit to SGT 6 Tertiary 08/24 Assessment & Plan (08/27/2025 2:31 PM EDT): Possible orthostatic fall Admit to SGT 6 Tertiary 08/24 Assessment & Plan (08/26/2025 9:05 AM EDT): Possible orthostatic fall Admit to SGT 6 Tertiary 08/24 Assessment & Plan (08/25/2025 1:51 PM EDT): Possible orthostatic fall Admit to SGT 6 Tertiary 08/24 Thickened endometrium 07/15/20232024 PMB (postmenopausal bleeding) 07/15/2023 08/28/2025 Encounters Date Type Department Care Team Description 08/31/2025 Travel 08/27/2025 Travel 08/26/2025 Travel 08/24/2025 Travel 08/23/2025 9:41 PM EDT - 09/01/2025 3:35 PM EDT Hospital Encounter [facility] Inpatient [address] [place] [address] Flaquito Lerma MD Davidson, MD Agus Packer, MD Shanna Leal, MD Jhonny Rodriguez, MD Sangeetha Jolly, MD Nacho Syed, Izzy Arora MD Fall, initial encounter (Primary Dx); Fx humeral neck, right, closed, initial encounter; Delirium Discharge Disposition: [facility] Facility 08/23/2025 Travel 08/23/2025 Orders Only External Location [address] [place] [address] Julianna Copeland, DO 08/23/2025 Orders Only External Location [address] [place] [address] Julianna Copeland, DO 08/23/2025 Orders Only External Location [address] [place] [address] Julianna Copeland, DO 08/23/2025 Orders Only External Location [address] [place] [address] Provider, External 08/23/2025 Orders Only External Location [address] [place] [address] Provider, External 08/23/2025 Orders Only External Location [address] [place] [address] Provider, External 08/23/2025 Orders Only External Location [address] [place] [address] Provider, External 08/23/2025 Orders Only External Location [address] [place] [address] Provider, External 08/23/2025 Orders Only External Location [address] [place] [address] Provider, External 08/23/2025 Orders Only External Location [address] [place] [address] Provider, External 08/23/2025 Orders Only External Location [address] [place] [address] Provider, External 08/23/2025 Orders Only External Location [address] [place] [address] Provider, External 08/23/2025 Orders Only External Location [address] [place] [address] Provider, External 08/23/2025 Orders Only External Location [address] [place] [address] Provider, External 08/23/2025 Orders Only External Location [address] [place] [address] Provider, External 08/23/2025 Orders Only External Location [address] [place] [address] Provider, External 08/23/2025 Orders Only External Location [address] [place] [address] Julianna Copeland, DO 08/23/2025 Orders Only External Location [address] [place] [address] Provider, External 08/23/2025 Orders Only External Location [address] [place] [address] Provider, External 08/23/2025 Orders Only External Location [address] [place] [address] Provider, External 08/23/2025 Orders Only External Location [address] [place] [address] Provider, External 08/23/2025 Orders Only External Location [address] [place] [address] Provider, External from Last 3 Months Social [...] any time in the past 12 m [facility], were you homeless or living in a alf (including now)? No 08/24/2025 [facility] Utilities Answer Date Recorded In the [...] drink first t fabian in the morning (EYE-ROTARY ADJUSTER) to steady your nerves or to [...] 08/26/2025 12:44 PM EDT Plan of Treatment Health Maintenance Due Date Last Done Comments [...] 1-dose series) 2019 [facility]-Depression Screening 09/02/2024 09/02/2023 [id number] Vaccine (1 - season) 2025 [facility]-Influenza Vaccine [...] of35 resultswithin the time period is included. POCT Glucose 224(H) 74 - 99 mg/dL [...] Comment 09/01/2025 12:06 PM EDT [facility] Scale Reclamation Tender ID Nathalia Senior 12:06 PM EDT HEALTH[facility]ARE LAB Device ID [id number] 09/01/2025 12:06 PM EDT [facility] Specimen Type POC Capillary 09/01/2025 12:06 PM EDT [facility] Blood Capillary blood specimen / Unknown 09/01/2025 12:05 PM EDT 09/01/2025 12:06 PM EDT us Juan Otero MD LAB POINT OF CARE TEST DOCKED DEVICE UNSOLICITED RESULTS Final Result [facility] [address] [place] [address] * Troponin T, High Sensitivity, 2 Hour, Plasma (08/31/2025 11:58 AM EDT) [facility] Troponin T, High Sensitivity, 2 Hour 10 <14 ng/L 08/31/2025 12:32 PM EDT [facility] Blood Venous blood specimen / Unknown Venipuncture / Unknown 08/31/2025 11:58 AM EDT 08/31/2025 12:04 PM EDT us Rodney Dwyer APRN LAB BLOOD ORDERABLES Final Result [facility] [address] [place] [address] * XR Chest 1 View (08/31/2025 10:22 [...] on 08/31/2025 11:12 AM us Rodney Dwyer COORDINATOR OF EVALUATION IMG XR PROCEDURES Final Re sult * ECG Adult (08/31/2025 9:44 AM EDT) Only the most recent of2 resultswithin the time period is included. EKG DIAGNOSIS CLASS Abnormal MUSE ECG Ventricular Rate 94 BPM MUSE ECG Atrial Rate 94 BPM MUSE ECG AK Interval 136 ms MUSE ECG QRSD Interval 84 ms MUSE ECG QT Interval 380 ms MUSE ECG QTC Interval 475 ms MUSE ECG P Campo 10 degrees MUSE ECG R Campo 13 degrees MUSE ECG T Wave Campo 144 degrees MUSE ECG Diagnosis Poor data quality, interpretation may be adversely affected MUSE ECG Diagnosis Normal sinus rhythm with sinus arrhythmia MUSE ECG Diagnosis ST & T wave abnormality, consider anterolateral ischemia MUSE ECG Diagnosis Abnormal ECG MUSE ECG Diagnosis MUSE ECG Diagnosis Confirmed by Quique Peacock ([id number]) on 08/31/2025 2:11:20 PM MUSE ECG 08/31/2025 9:44 AM EDT 08/31/2025 2:11 PM EDT Rodney Dwyer COORDINATOR OF EVALUATION ECG ORDERABLES Final Resu lt MUSE ECG * Troponin T, High Sensitivity, 0 Hour Plasma, Reflex to 2 Hour (08/31/2025 9:43 AM EDT) Pathologist [facility] Troponin T, High Sensitivity, 0 Hour 12 <14 ng/L 08/31/2025 11:45 AM EDT [facility] Blood Venous blood specimen / Unknown Venipuncture / Unknown 08/31/2025 9:43 AM EDT 08/31/2025 11:04 AM EDT Rodney Dwyer APRN LAB BLOOD ORDERABLES Final Result [facility] [address] [place] [address] * (ABNORMAL) CBC and differential (08/31/2025 9:43 AM EDT) Pathologist [facility] WBC Count 8.37 3.70 - 10.30 10*3/uL [...] EDT 08/31/2025 11:17 AM EDT [facility] - 08/31/2025 11:27 AM EDT Therapeutic decision making should be based on absolute values, rather than percentages. us Rodney Dwyer APRN LAB BLOOD ORDERABLES Final Result [facility] [address] [place] [address] * (ABNORMAL) Comprehensive metabolic panel (08/31/2025 9:43 [...] 08/31/2025 11:04 AM EDT us Rodney Dwyer COORDINATOR OF EVALUATION LAB BLOOD ORDERABLES Final Result [facility] [address] [place] [address] * XR Shoulder Right 1 View (08/27/2025 [...] PM EDT [facility] Spec [place], Urine >1.030(H) 1.005 - 1.030 LAB URINALYSIS [...] ivy Result [facility] [address] [place] [address] * ECHO, ADULT TRANSTHORACIC COMPLETE W/ CONTRAST [...] REBEKAH ISCV LV mean PG 1.0 mmHG REBKEAH ISCV LV V1 mean 54.9 cm/sec REBEKAH [...] is no recent study available for direct qtnd-ye-ezgk comparison. Left Ventricle Based on the 2D [...] is no recent study available for direct agwc-vq-belb comparison. us Zander Goldsmith MD CV ECHO [...] Ellis MD on 08/25/2025 3:03 PM us Zander Goldsmith MD CV VASCULAR PROCEDURES Final [...] R esult [facility] [address] [place] [address] * Phosphorus (08/24/2025 3:59 AM EDT) Phosphorus, Plasma 4.1 2.5 - 4.5 mg/dL 08/24/2025 5:01 AM EDT [facility] Blood Venous blood specimen / Unknown Venipuncture / Unknown 08/24/2025 3:59 AM EDT 08/24/2025 4:22 AM EDT us Kwesi Yang MD LAB BLOOD ORDERABLES Final R esult Performing Organization Address City/[facility]/ZIP Co de Phone Number [facility] [address] [place] [address] * Magnesium, Plasma (08/24/2025 3:59 AM EDT) Magnesium, Plasma 2.2 1.9 - 2.4 mg/dL 08/24/2025 5:01 AM EDT [facility] Blood Venous blood specimen / Unknown Venipuncture / Unknown 08/24/2025 3:59 AM EDT 08/24/2025 4:22 AM EDT us Kwesi Yang MD LAB BLOOD ORDERABLES Final R esult [facility] [address] [place] [address] * (ABNORMAL) Hemoglobin A1c (08/24/2025 3:59 AM [...] Adults <6.0% Children and Adolescents <7.5% Source: [place] [employer]. Standards of medical care in diabetes,2017. Diabetes Care.2017:40 (suppl 1):S1-S135. Brigid RIBEIRO LAB BLOOD ORDERABLES Final Result [facility] [address] [place] [address] * (ABNORMAL) Basic metabolic panel (08/24/2025 3:59 [...] R esult [facility] [address] [place] [address] * CT Shoulder Right wo IV Contrast [...] lesser humeral tuberosity, humeral head and neck. Pmoh-sg-pkejdgrz osteoarthritis the glenohumeral joint. Moderate osteoarthritis of [...] lesser humeral tuberosity, humeral head and neck. Dpus-li-cuiemtni osteoarthritis the glenohumeral joint. Moderateosteoarthritis of the [...] signing this report, I, the attending physician, attleethat I have personally reviewed the images/data for [...] ging 08/23/2025 7:31 PM EDT us Julianna Copeland DO IMG XR PROCEDURES Edited [...] phy 08/23/2025 5:49 PM EDT us Julianna Copeland DO IMG [...] 4:34 PM EDT) Case Report Cytology Case: [id number] Authorizing Provider: Marlen Pop, Collected: 07/15/2023 1634 Ordering Location: [facility] Gynecology Received: 07/16/2023 1034 First Screen: Naomi Rosales Pathologist: Joann Martinez MD Specimen: ThinPrep Pap Test, Liquid-Based Cervical/Vagin al 07/23/2023 11:38 AM EDT [facility] Interpretation ATYPICAL SQUAMOUS CELLS OF UNDETERMINED SIGNIFICANCE (ASCUS)(A) 07/23/2023 11:38 AM EDT [facility] at 1138 EDT Other Findings Reactive endocervical gland cells. Inflammation and repair. 07/23/2023 11:38 AM EDT [facility] Specimen Adequacy Satisfactory for evaluation; endocervical/t ransformation zone component present. Slide imaged by the ThinPrep Imaging system and selected 22 vasquez reviewed then full manual screening. 07/23/2023 11:38 AM EDT [facility] Cervical cytology is a screening test [...] results is suggested (please call Microbiology at [phone] for results). 07/23/2023 11:38 AM EDT [facility] Menstrual Status Post-Menopausa l 07/23/2023 11:38 AM EDT [facility] Contraceptive History Not Applicable 07/23/2023 11:38 AM EDT [facility] Screening Type Routine Screen 2022 11:38 AM EDT [facility] High Risk? No 07/23/2023 11:38 AM EDT [facility] HPV Testing Requested? Request HPV Testing Regardless of Pap Test Findings 07/23/2023 11:38 AM EDT [facility] Previous Cancer History No 07/23/2023 11:38 AM EDT [facility] Intradepartmental Consultation with Agreement 07/23/2023 11:38 AM EDT [facility] Clinical Information R19.00 - Pelvic mass [ICD-10-CM] 07/23/2023 11:38 AM EDT [facility]ALTH[facility] Swab Vaginal and cervical cytologic material / Unknown Non-blood Collection / Unknown 07/15/2023 4:34 PM EDT 07/16/2023 10:34 AM EDT us Marlen Loredo MD LAB CYTOLOGY ORDERABL ES Final Result [facility] [address] [place] [address] from Last 3 Months or Most Recently Relevant to Health Maintenance Insurance [facility] MEDICARE Advance Directives * Full Code (Latest [...] Patient has decision-making capacity? Yes Care Teams Title Officer Relationship Specialty Start Date End Date Brad Hassan MD [address] [place] [address] PCP - General Internal Medicine 08/08/23 Greta Simpson DO [employer] [address] Obstetrics and Gynecology 07/03/23
--- OUTSIDE RECORDS SUMMARY | 2025-10-11 21:04 | XMS_ITS | Encounter Summary ---
Author Organization [facility] Address [address] [place] [address] Care Team Providers Care Education Sales Consultant Name Role Phone Greta Simpson DO Unavailable [phone] Brad Hassan MD Primary Care Provider [phone] Encounter Details Date Type Department Care Team [...] any time in the past 12 m [facility], were you homeless or living in a fdc (including now)? No 08/24/2025 [facility] Utilities Answer Date Recorded In the [...] drink first t fabian in the morning (EYE-BIOMEDICAL TECHNICIAN) to steady your nerves or to get [...] Answer Date of Assessment Author Precautions Fall risk;[facility] sarah surveillance 08/24/2025 8:00 PM EDT Aminata Jones, RN * Calculated C-SSRS Risk Score (Lifetime/Recent) Answer Date of Assessment Author No Risk Indicated 08/24/2025 7:30 AM EDT Mal Nolen, RN * Question Answer Date of Assessment Author 1. Wish to be (Past 1 Month) No 025 7:30 AM EDT Mal Nolen, THEODORE 2. Non-Specific Active Suici giorgi Thoughts (Past 1 Month) No 08/24/2025 7:30 AM EDT Mal Nloen, THEODORE 6. Suicidal Behavior (Lifetime) No 7:30 AM EDT Mal Nolen RN documented as of this encounter Mental Status * Question Answer Entry Date Author Precautions Fall risk;[employer] sarah surveillance 08/24/2025 8:00 PM EDT Aminata Jones RN documented in this encounter Plan of [...] documented as of this encounter Care Teams Education Sales Consultant Relationship Specialty Start Date End Date Brad Hassan MD [address] [place] [address] [place] [id number] PCP - General Internal Medicine 08/08/23 Greta Simpson DO [facility] [address] Obstetrics and Gynecology 07/03/23 documented as of this encounter
--- OUTSIDE RECORDS SUMMARY | 2025-10-11 21:05 | XMS_ITS | Encounter Summary ---
Author Organization Healthcare Address [address] [place] [address] Care Team Providers Care Interior Systems Carpenter Name Role Phone Greta Simpson DO Unavailable [phone] Brad Hassan MD Primary Care Provider [phone] Encounter Details Date Type Department Care Team (Late st Contact Info) Description 08/23/2025 Orders Only External Location [address] [place] [id number] Provider, External Social History Tobacco Use Types [...] any time in the past 12 m [facility], were you homeless or living in a prison (including now)? No 08/24/2025 [facility] Utilities Answer Date Recorded In the past 12 months has th e [employer], gas, oil, or water company threatened to [...] first t fabian in the morning (EYE-REGIONAL EDUCATION MANAGER) to steady your nerves or to get [...] documented as of this encounter Care Teams Interior Systems Carpenter Relationship Specialty Start Date End Date Brad Hassan MD [address] [place] [address] [place] [id number] PCP - General Internal Medicine 08/08/23 Greta Simpson DO [facility] G4 [address] Obstetrics and Gynecology 07/03/23 documented as of this encounter
--- OUTSIDE RECORDS SUMMARY | 2025-10-11 21:05 | XMS_ITS | Encounter Summary ---
Author Organization Healthcare Address [address] [place] [address] Care Team Providers Care Wet Process Miller Head Name Role Phone Greta Simpson DO Unavailable [phone] Brad Hassan MD Primary Care Provider [phone] Encounter Details Date Type Department Care Team (Late st Contact Info) Description 08/23/2025 Orders Only External Location [address] [place] [phone] Provider, External Social History Tobacco Use Types [...] any time in the past 12 m [facility], were you homeless or living in a fpc (including now)? No 08/24/2025 [facility] Utilities Answer Date Recorded In the past 12 months has th e [employer], gas, oil, or water company threatened to [...] drink first t fabian in the morning (EYE-WIRE FENCE BUILDER) to steady your nerves or to get [...] documented as of this encounter Care Teams Wet Process Miller Head Relationship Specialty Start Date End Date Brad Hassan MD [address] [place] [address] [place] [address] PCP - General Internal Medicine 08/08/23 Greta Simpson DO [facility] G4 [address] Obstetrics and Gynecology 07/03/23 documented as of this encounter
--- OUTSIDE RECORDS SUMMARY | 2025-10-11 21:05 | XMS_ITS | Encounter Summary ---
Author Organization [facility] Address [address] [place] [address] Care Team Providers Care Human Resources Safety Manager Name Role Phone Greta Simpson DO Unavailable Brad Hassan MD Primary Care Provider [phone] Encounter Details Date Type Department Care Team [...] any time in the past 12 m [facility], were you homeless or living in a nursing home (including now)? No 08/24/2025 [facility] Utilities Answer Date Recorded In the past [...] drink first t fabian in the morning (EYE-COMMUNITY HEALTH COUNSELOR) to steady your nerves or to get [...] as of this encounter Plan of Treatment Not on [...] documented as of this encounter Care Teams Human Resources Safety Manager Relationship Specialty Start Date End Date Brad Hassan MD [address] [place] [address] [place] [address] PCP - General Internal Medicine 08/08/23 Greta Simpson DO [facility] [address] Obstetrics and Gynecology 07/03/23 documented as of this encounter
--- OUTSIDE RECORDS SUMMARY | 2025-10-11 21:05 | XMS_ITS | Encounter Summary ---
Author Organization Healthcare Address [address] [place] [address] Care Team Providers Care Boat Laborer Name Role Phone Greta Simpson DO Unavailable [phone] Brad Hassan MD Primary Care Provider [phone] Encounter Details Date Type Department Care Team (Late st Contact Info) Description 08/23/2025 Orders Only External Location [address] [place] [phone] Provider, External Social History Tobacco Use Types [...] any time in the past 12 m [facility], were you homeless or living in a intermediate (including now)? No 08/24/2025 [facility] Utilities Answer Date Recorded In the past 12 months has th e [employer], gas, oil, or water company threatened to [...] drink first t fabian in the morning (EYE-FINANCIAL ADMINISTRATOR) to steady your nerves or to get [...] documented as of this encounter Care Teams Boat Laborer Relationship Specialty Start Date End Date Brad Hassan MD [address] [place] [address] [place] [address] PCP - General Internal Medicine 08/08/23 Greta Simpson DO [facility] G4 [address] Obstetrics and Gynecology 07/03/23 documented as of this encounter
--- OUTSIDE RECORDS SUMMARY | 2025-10-11 21:05 | XMS_ITS | Encounter Summary ---
Author Organization Healthcare Address [address] [place] [address] Care Team Providers Care License Inspector Name Role Phone Greta Simpson DO Unavailable [phone] Brad Hassan MD Primary Care Provider [phone] Encounter Details Date Type Department Care Team (Late st Contact Info) Description 08/23/2025 Orders Only External Location [address] [place] [address] Julianna Copeland, DO [address] [place] [address] Social History Tobacco Use Types [...] any time in the past 12 m [facility], were you homeless or living in a mcfp (including now)? No 08/24/2025 [facility] Utilities Answer Date Recorded In the [...] drink first t fabian in the morning (EYE-ROADWAY ENGINEER) to steady your nerves or to [...] 8:00 AM EDT Vivian Keller RN * Calculated C-SSRS Risk Score (Lifetime/Recent) Answer Date of Assessment Author No Risk Indicated 08/27/2025 8:00 AM EDT Vivian Keller RN * Question Answer Date of Assessment Author 1. Wish to be (Past 1 Month) No 025 8:00 AM EDT Vivian Keller RN 2. Non-Specific Active Suici giorgi Thoughts (Past 1 Month) No 08/27/2025 8:00 AM EDT Vivian Keller RN 6. Suicidal Behavior (Lifetime) No 8:00 AM EDT Vivian Keller RN documented as of this encounter Mental [...] documented as of this encounter Care Teams License Inspector Relationship Specialty Start Date End Date Brad Hassan MD [address] [place] [address] [place] [address] PCP - General Internal Medicine 08/08/23 Greta Simpson DO [facility] G4 [address] Obstetrics and Gynecology 07/03/23 documented as of this encounter
--- OUTSIDE RECORDS SUMMARY | 2025-10-11 21:05 | XMS_ITS | Encounter Summary ---
Author Organization Healthcare Address [address] [place] [address] Care Team Providers Care Assistant Professor Of Business Name Role Phone Greta Simpson DO Unavailable [phone] Brad Hassan MD Primary Care Provider [phone] Encounter Details Date Type Department Care Team (Late st Contact Info) Description 08/23/2025 Orders Only External Location [address] [place] [phone] Provider, External Social History Tobacco Use Types [...] were you homeless or living in a skilled nursing (including now)? No 08/24/2025 [facility] Utilities Answer Date Recorded In the past 12 months has th e [employer], gas, oil, or water company threatened to [...] drink first t fabian in the morning (EYE-CASTING TRUCKER) to steady your nerves or to get [...] documented as of this encounter Care Teams Assistant Professor Of Business Relationship Specialty Start Date End Date Brad Hassan MD [address] [place] [address] [place] [address] PCP - General Internal Medicine 08/08/23 Greta Simpson DO [facility] G4 [address] Obstetrics and Gynecology 07/03/23 documented as of this encounter
--- NOTE | 2025-10-11 21:06 | HMH.EDGENADL ---
Discharge Plan Disposition Patient Disposition: Home, Self-Care Condition: Good Prescriptions Prescriptions: New ondansetron HCl 4 mg tablet 4 mg PO DAILY 5 Days Qty: 15 0RF No Action Jardiance 25 mg tablet 25 mg PO DAILY (DME) Diabetic Shoes (DME) Misc See Rx Instructions .ROUTE .MEDSUPPLY Qty: 1 0RF Rx Instructions: [facility] Please dispense one (1) pair of Diabetic shoes with inserts bupropion HCl 300 mg tablet extended release 24 hr PO Patient Comments: [NO ORIGINAL SIG] carvedilol 6.25 mg tablet 6.25 mg PO BID Qty: 90 3RF Mounjaro 7.5 mg/0.5 mL pen injector See Rx Instructions .ROUTE .COMPLEX Qty: 8 5RF Dose Instruction: INJECT 7.5MG (1 PEN) UNDER THE SKIN EVERY WEEK Rx Instructions: INJECT 7.5MG (1 PEN) UNDER THE SKIN EVERY WEEK fluoxetine 40 mg capsule 40 mg PO BID Patient Comments: TAKE 1 CAPSULE BY MOUTH EVERY 12 HOURS hydroxyzine HCl 25 mg tablet 25 mg PO QID Patient Comments: TAKE 1 TABLET BY MOUTH 4 TIMES DAILY acetaminophen 500 mg capsule 500 mg PO Q6H PRN (Reason: Pain) Gemtesa 75 mg tablet 75 mg PO DAILY omeprazole 20 mg capsule,delayed release(DR/EC) 20 mg PO DAILY spironolactone 25 mg tablet 12.5 mg PO DAILY 90 Days Qty: 45 2RF losartan 25 mg tablet See Rx Instructions .ROUTE .COMPLEX Qty: 45 3RF Dose Instruction: TAKE 1/2 TABLET EVERY DAY Rx Instructions: TAKE 1/2 TABLET EVERY DAY pravastatin 20 mg tablet 20 mg PO DAILY Qty: 90 3RF Referrals Follow up/Referrals: Kamilla Mcduffie APRN [Primary Care Provider, Medical] - See instructions Activity Restrictions/Add. Instructions Additional Instructions/Restrictions: I have sent you a Zofran which you can take for nausea and vomiting. Stay well-hydrated with fluids. Return to the emergency department for any acute or worsening symptoms. Clinical Impressions Clinical Impression: Vomiting, Diarrhea Instructions Patient Instructions: DI for Diarrhea and Traveler's Diarrhea in Adults, DI for Diarrhea and Traveler's Diarrhea in Children, DI for Nausea in Adults, DI for Nausea in Children Print Language Print Language: Guatemalan Discharge ED Provider: Julianna Copeland General Adult HPI General Chief complaint: Nausea/Vomiting/Diarrhea Stated complaint: Nausea, Vomiting Time Seen by Provider: 10/11/25 20:54 Mode of Arrival: EMS Source of Information: Patient and EMS Description of Symptoms (Recalled from ER Triage Doc. by RN): pt reports she was eating dinner tonight and sat on the couch afterwars when she lost control of her bowels. pt then stated she began vomitting and now feels like she has something stuck when she gags History of Present Illness HPI narrative: Patient is a 65-year-old female who presents to the emergency department with diarrhea and vomiting. Patient states that she ate dinner then had diarrhea and then started having vomiting. Patient states that she is also having a headache and has photophobia with some dizziness. Patient states that her dizziness is worse when she opens her eyes or when she moves around. Patient states that she has had multiple episodes of nonbloody vomiting. No blood in her diarrhea. Patient reports some abdominal pain. Patient denies any chest pain or shortness of breath. Patient denies any recent fevers. Related Data Home Medications ?Medication ?Instructions ?Recorded ?Confirmed fluoxetine 40 mg capsule 40 mg PO BID 02/06/23 10/07/25 hydroxyzine HCl 25 mg tablet 25 mg PO QID 02/06/23 10/07/25 empagliflozin 25 mg tablet 25 mg PO DAILY 01/09/24 10/07/25 (Jardiance) acetaminophen 500 mg capsule 500 mg PO Q6H PRN Pain 05/05/24 10/07/25 vibegron 75 mg tablet (Gemtesa) 75 mg PO DAILY 05/05/24 10/07/25 omeprazole 20 mg capsule,delayed 20 mg PO DAILY 02/01/25 10/07/25 release bupropion HCl 300 mg 24 hr tablet, mg PO 10/07/25 10/07/25 extended release Previous Rx's ?Medication ?Instructions ?Recorded spironolactone 25 mg tablet 12.5 mg (1/2 x 25 mg) PO DAILY 90 07/12/25 days #45 tabs losartan 25 mg tablet See Rx Instructions .Route 07/22/25 .COMPLEX #45 tabs Diabetic Shoes (DME) #1 ea 07/29/25 pravastatin 20 mg tablet 20 mg PO DAILY #90 tabs 08/18/25 carvedilol 6.25 mg tablet 6.25 mg PO BID #90 tabs 10/07/25 tirzepatide 7.5 mg/0.5 mL See Rx Instructions .Route 10/07/25 subcutaneous pen injector .COMPLEX #8 ea (Toomikal) ondansetron HCl 4 mg tablet 4 mg PO DAILY 5 days #15 tabs 10/12/25 Allergies Allergy/AdvReac Type Severity Reaction Status Date / Time No Known Allergies Allergy Verified 10/07/25 15:22 [facility] Disclaimer: The information contained in this section may have been updated after the patient was seen, as this information can be updated by other users. Medical History FLAVIO (obstructive sleep apnea) Left ventricular ejection fraction of 40-49% Atypical angina Dyspnea Abnormal findings on diagnostic imaging of heart and coronary circulation Enlarged uterus Abnormal cervix finding Postmenopausal bleeding HTN (hypertension) Diabetes Surgical History Hx of hysterectomy Hx of tubal ligation History of cholecystectomy Family History Other Asthma Diabetes Heart attack Hypertension Social History Smoking Status: Never smoker alcohol intake: never current occupational status: disabled and other details: unknown Travel in the last 8 weeks?: None Have you lived/traveled outside US in past 30 days?: No Contact w/someone who lives/traveled outside US past 30 days?: No Exposure to someone with infectious disease in past 14 days?: No Do you have a fever (greater than 100.4 F or 38 C)?: No Have you tested positive for COVID-19?: No Exposed to someone with COVID-19 in past 14 days?: No Do you have a sore throat?: No Do you have a cough?: No Do you have any weakness?: No Do you have any diarrhea?: No Are you experiencing any unusual bleeding?: No Do you have any muscle aches/pain?: No Do you have any abdominal pain?: No Are you experiencing loss of taste or smell?: No Other Medical History Have you received the Flu Vaccine for this season: No Have you received the Pneumonia Vaccine: No ROS Obtained: Yes All systems reviewed & no additional complaints except as documented and Yes Systems reviewed as appropriate & no additional complaints except as documented Physical Exam General General appearance: alert and in no apparent distress Head Head exam: atraumatic, normocephalic and normal inspection Eye Eye exam: Present normal appearance, PERRL and EOMI; Absent scleral icterus ENT ENT exam: Present normal exam and normal external ear exam Neck Neck exam: Present normal inspection and full ROM Chest Chest inspection: Present normal inspection and symmetric chest wall rise Respiratory Respiratory exam: Present normal lung sounds bilaterally; Absent respiratory distress or wheezes Cardiovascular Cardiovascular exam: Present regular rate, normal rhythm and normal heart sounds Abdominal Exam Abdominal exam: Present soft, distention and tenderness (epigastric); Absent guarding or rebound Extremities Exam Extremities exam: Present normal inspection and full ROM Back Exam Back exam: Present normal inspection and full ROM Neurological Exam Neurological exam: Present alert, oriented X3, CN II-XII intact and other (room spinning with head movements); Absent motor sensory deficit Psychiatric Psychiatric exam: Present normal affect and normal mood Skin Skin exam: Present warm and dry Medical Decision Making Medical Records Medical records reviewed: Yes I reviewed the patient's medical records. Screening: Per USPSTF and CDC recommendations, given the prevalence of disease in our region, it is our hospital?s policy to screen for HIV and viral Hepatitis for all patients aged 18 and over and those with ongoing risk factors. Raphael Inquiry Pt receiving controlled substance: No Vital Signs: 10/11/25 20:54 10/11/25 21:00 10/11/25 21:30 Temperature 98 F Temperature Source Oral Pulse Rate 82 79 Pulse Rate [Right] 84 Respiratory Rate 20 Blood Pressure 169/79 H 151/76 H Blood Pressure [Right Arm] 172/83 H Blood Pressure Mean 109 104 Blood Pressure Mean [Right Arm] 112 02 Sat by Pulse Oximetry 97 97 96 10/11/25 22:00 10/11/25 22:30 10/11/25 23:00 Temperature Temperature Source Pulse Rate 86 91 H 92 H Pulse Rate [Right] Respiratory Rate Blood Pressure 153/72 H 152/72 H 160/76 H Blood Pressure [Right Arm] Blood Pressure Mean 99 92 94 Blood Pressure Mean [Right Arm] 02 Sat by Pulse Oximetry 96 95 96 10/11/25 23:30 Temperature Temperature Source Pulse Rate 92 H Pulse Rate [Right] Respiratory Rate Blood Pressure 147/80 H Blood Pressure [Right Arm] Blood Pressure Mean 99 Blood Pressure Mean [Right Arm] 02 Sat by Pulse Oximetry 96 Lab Data Lab results reviewed: Yes I reviewed the patient's lab results. Lab Results 10/11/25 20:33: WBC 7.2, RBC 3.97 L, Hgb 12.4, Hct 38.4, MCV 96.7, MCH 31.2, MCHC 32.3, RDW 12.7, Plt Count 301, MPV 9.5, Neut % (Auto) 53.0, Lymph % (Auto) 36.6, [place] % (Auto) 7.8, Eos % (Auto) 2.1, Baso % (Auto) 0.4, Neut # (Auto) 3.8, Lymph # (Auto) 2.6, [place] # (Auto) 0.6, Eos # (Auto) 0.2, Baso # (Auto) 0.0, Sodium 140, Potassium 3.8, Chloride 103, Carbon Dioxide 24, Anion Gap 16.8 H, BUN 14, Creatinine 0.70, Estimated Creat Clear 61, Estimated GFR 84, Est GFR ( Amer) 101, Glucose 195 H, Calcium 9.1, Phosphorus 2.6, Magnesium 1.9, Total Bilirubin 0.3, AST 48 H, ALT 48, Alkaline Phosphatase 115, Troponin I < 0.01, NT-Pro-B Natriuret Pep 118, Total Protein 7.4, Albumin 4.7, Globulin 2.7, Albumin/Globulin Ratio 1.7, Lipase 239 10/11/25 21:10: VBG pH 7.40, VBG pCO2 36.4, VBG pO2 56.9 H, VBG HCO3 22.0 L, VBG Total CO2 23.2, VBG O2 Saturation 88.6 H, VBG Base Excess -2.8 L, VBG Lactic Acid 1.9 10/11/25 22:47: Urine Color Yellow, Urine Appearance Clear, Urine pH 7.0, Ur Specific [place] 1.010, Urine Protein Negative, Urine Glucose (UA) 3+, Urine Ketones Negative, Urine Blood Negative, Urine Nitrate Negative, Urine Bilirubin Negative, Urine Urobilinogen 0.2, Ur Leukocyte Esterase Negative, Urine RBC Occasional, Urine WBC Occasional, Ur Squamous Epith Cells 3-5, Urine Bacteria 1+ 10/11/25 20:33 10/11/25 20:33 Orders (Tests/Meds): ED MEDICATIONS Discontinued Medications Generic Name Dose Route Start Last Admin Trade Name Becka PRN Reason Stop Dose Admin Acetaminophen 1,000 mg 10/11/25 22:25 10/11/25 22:35 Acetaminophen 1,000mg/100ml Vial IV 10/11/25 22:26 1,000 mg ONCE ONE Administration Sodium Chloride 500 mls @ 999 mls/hr 10/11/25 21:32 10/11/25 21:49 Sod Chlor 0.9% 1000ml Bag IV 10/11/25 22:02 999 mls/hr .Q31M ONE Administration Iopamidol 160 ml 10/11/25 22:10 10/11/25 22:11 Iopamidol-370 (76%);100ml Bottle IV 10/11/25 22:11 160 ml ONCE ONE Administration Ondansetron HCl 4 mg 10/11/25 21:32 10/11/25 21:48 Ondansetron 4mg/2ml Vial IV 10/11/25 21:33 4 mg ONCE ONE Administration Sodium Chloride 100 ml 10/11/25 22:10 10/11/25 22:12 0.9 % Sodium Chloride 50 Ml Vial IV 10/11/25 22:11 100 ml ONCE ONE Administration Sodium Chloride 10 ml 10/11/25 22:10 10/11/25 22:12 Sodium Chloride 0.9% 10ml Syr (Rad Only) IV 10/11/25 22:11 10 ml ONCE ONE Administration ORDERS Category Date Time Status CT angio abdomen pelvis Stat Cat Scan 10/11/25 21:[address] angio head Stat Cat Scan 10/11/25 21:[address] angio neck Stat Cat Scan 10/11/25 21:[address] head/brain wo con Stat Cat Scan 10/11/25 21:29 Completed BNP [NT Pro Brain Natriuretic Pep.] Stat Lab 10/11/25 20:33 Completed CBC w/Auto Diff [Complete Blood Count Auto Diff] Stat Lab 10/11/25 20:33 Completed CMP [Comprehensive Metabolic Panel] Stat Lab 10/11/25 20:33 Completed Lipase Stat Lab 10/11/25 20:33 Completed Magnesium Stat Lab 10/11/25 20:33 Completed Phosphorous Stat Lab 10/11/25 20:33 Completed Trop I [Troponin I] Stat Lab 10/11/25 20:33 Completed UA [Urinalysis and Microscopic] Stat Lab 10/11/25 22:47 Completed Urine Culture Stat Micro 10/11/25 22:47 Received VBG [Venous Blood Gas] Stat RT 10/11/25 21:10 Completed Medical Decision Narrative: Patient is a 65-year-old female who presented to the emergency department with acute onset diarrhea and vomiting as well as dizziness. On arrival, patient was hemodynamically stable with unremarkable vital signs. Differential includes but not limited to: Viral gastroenteritis, significant dehydration, peripheral vertigo, electrolyte abnormalities, intra-abdominal process, amongst others Labs were reviewed reviewed and interpreted by myself: CBC showed no leukocytosis, hemoglobin was stable. VBG was unremarkable with no acidosis no elevated lactate. CMP was notable for mild elevated anion gap otherwise unremarkable. Initial troponin less than 0.01. UA showed no evidence of infection. Lipase normal. CT head, CTA head and neck as well as CT abdomen pelvis showed no acute pathology. Patient was given IV Zofran and IV fluids, this was given judiciously given patient has heart failure with an EF of 30%. On repeat evaluation, patient looks significantly improved patient felt significantly improved. Patient was able to tolerate the lights on, patient was able to sit up without difficulties. Patient was able to tolerate fluids and crackers at bedside. Patient was able to get up and ambulate without difficulties at bedside. At this time, I felt that patient was stable and appropriate for discharge home. Return precautions were discussed. Critical Care Critical Care Time Critical Care Time: No
--- OUTSIDE RECORDS SUMMARY | 2025-10-11 21:06 | XMS_ITS | Encounter Summary ---
Author Organization Healthcare Address [address] [place] [address] Care Team Providers Care Contact Lens Lathe Operator Name Role Phone Greta Simpson DO Unavailable [phone] Brad Hassan MD Primary Care Provider [phone] Encounter Details Date Type Department Care Team (Late st Contact Info) Description 08/23/2025 Orders Only External Location [address] [place] [phone] Provider, External Social History Tobacco Use Types [...] time in the past 12 m [facility], were you homeless or living in a senior living (including now)? No 08/24/2025 [facility] Utilities Answer Date Recorded In the past 12 months has th e [employer], gas, oil, or water company threatened to [...] drink first t fabian in the morning (EYE-RECEPTIONIST AIRLINE LOUNGE) to steady your nerves or to get [...] documented as of this encounter Care Teams Contact Lens Lathe Operator Relationship Specialty Start Date End Date Brad Hassan MD [address] [place] [address] [place] [address] PCP - General Internal Medicine 08/08/23 Greta Simpson DO [facility] G4 [address] Obstetrics and Gynecology 07/03/23 documented as of this encounter
--- OUTSIDE RECORDS SUMMARY | 2025-10-11 21:06 | XMS_ITS | Encounter Summary ---
Author Organization Healthcare Address [address] [place] [address] Care Team Providers Care Concrete Bucket Unloader Name Role Phone Greta Simpson DO Unavailable [phone] Brad Hassan MD Primary Care Provider [phone] Encounter Details Date Type Department Care Team (Late st Contact Info) Description 08/23/2025 Orders Only External Location [address] [place] [address] Julianna Copeland, DO [address] [place] [address] Social History Tobacco Use Types [...] any time in the past 12 m [facility], were you homeless or living in a alf (including now)? No 08/24/2025 [facility] Utilities [...] drink first t fabian in the morning (EYE-MEDICAL CLAIMS REPRESENTATIVE) to steady your nerves or to get [...] 08/23/2025 5:49 PM EDT Julianna Copeland DO [facility] CT PROCEDURES Edited Result - Final documented in this encounter Visit Diagnoses Not on filedocumented in this encounter Additional Health Concerns Assessment Noted Time A fall risk assessment has been complete d for the patient 09/02/2023 4:03 PM EDT A Body Mass Index follow-up plan has been documented for the patient 09/01/2025 1:30 PM EDT documented as of this encounter Care Teams Concrete Bucket Unloader Relationship Specialty Start Date End Date Brad Hassan MD [address] [place] [address] [place] [id number] PCP - General Internal Medicine 08/08/23 Greta Simpson DO [facility] G4 [address] Obstetrics and Gynecology 07/03/23 documented as of this encounter
--- OUTSIDE RECORDS SUMMARY | 2025-10-11 21:06 | XMS_ITS | Encounter Summary ---
Author Organization Healthcare Address [address] [place] [address] Care Team Providers Care Aerospace Project Engineer Name Role Phone Greta Simpson DO Unavailable [phone] Brad Hassan MD Primary Care Provider [phone] Encounter Details Date Type Department Care Team (Late st Contact Info) Description 08/23/2025 Orders Only External Location [address] [place] [address] Julianna Copeland, DO [address] [place] [address] Social History Tobacco Use Types [...] fci (including now)? No 08/24/[address] [facility] Utilities Answer Date Recorded In [...] drink first t fabian in the morning (EYE-RIDE ATTENDANT) to steady your nerves or to get [...] 08/23/2025 5:47 PM EDT Julianna Copeland DO [place] [facility] PROCEDURES Edited Result - Final documented in this encounter Visit Diagnoses Not on filedocumented in this encounter Additional Health Concerns Assessment Noted Time A fall risk assessment has been complete d for the patient 09/02/2023 4:03 PM EDT A Body Mass Index follow-up plan has been documented for the patient 09/01/2025 1:30 PM EDT documented as of this encounter Care Teams Aerospace Project Engineer Relationship Specialty Start Date End Date Brad Hassan MD [address] [place] [address] [place] [address] PCP - General Internal Medicine 08/08/23 Greta Simpson DO [facility] G4 [address] Obstetrics and Gynecology 07/03/23 documented as of this encounter
--- OUTSIDE RECORDS SUMMARY | 2025-10-11 21:08 | XMS_ITS | Encounter Summary ---
Author Organization Healthcare Address [address] [place] [address] Care Team Providers Care Event Av Operator Name Role Phone Greta Simpson DO Unavailable [phone] Brad Hassan MD Primary Care Provider [phone] Encounter Details Date Type Department Care Team (Late st Contact Info) Description 08/23/2025 Orders Only External Location [address] [place] [id number] Provider, External Social History Tobacco Use Types [...] were you homeless or living in a care home (including now)? No 08/24/2025 [facility] Utilities Answer Date Recorded In the past 12 months has th e [employer], gas, oil, or water company threatened to [...] drink first t fabian in the morning (EYE-SAND SCREENER) to steady your nerves or to get [...] documented as of this encounter Care Teams Event Av Operator Relationship Specialty Start Date End Date Brad Hassan MD [address] [place] [address] [place] [id number] PCP - General Internal Medicine 08/08/23 Greta Simpson DO [facility] G4 [address] Obstetrics and Gynecology 07/03/23 documented as of this encounter
--- OUTSIDE RECORDS SUMMARY | 2025-10-11 21:08 | XMS_ITS | Encounter Summary ---
Author Organization Healthcare Address [address] [place] [address] Care Team Providers Care Managing Cognitive Engineer Name Role Phone Greta Simpson DO Unavailable [phone] Brad Hassan MD Primary Care Provider [phone] Encounter Details Date Type Department Care Team (Late st Contact Info) Description 08/23/2025 Orders Only External Location [address] [place] [id number] Provider, External Social History Tobacco Use Types [...] any time in the past 12 m [facility], were you homeless or living in a assisted (including now)? No 08/24/2025 [facility] Utilities Answer Date Recorded In the past 12 months has th e [employer], gas, oil, or water company threatened to [...] drink first t fabian in the morning (EYE-PRESS MANAGER) to steady your nerves or to [...] documented as of this encounter Care Teams Managing Cognitive Engineer Relationship Specialty Start Date End Date Brad Hassan MD [address] [place] [address] [place] [id number] PCP - General Internal Medicine 08/08/23 Greta Simpson DO [facility] G4 [address] Obstetrics and Gynecology 07/03/23 documented as of this encounter
--- OUTSIDE RECORDS SUMMARY | 2025-10-11 21:09 | XMS_ITS | Encounter Summary ---
Author Organization Healthcare Address [address] [place] [address] Care Team Providers Care Germination Testing Manager Name Role Phone Greta Simpson DO Unavailable [phone] Brad Hassan MD Primary Care Provider [phone] Encounter Details Date Type Department Care Team (Late st Contact Info) Description 08/23/2025 Orders Only External Location [address] [place] [id number] Provider, External Social History Tobacco Use Types [...] were you homeless or living in a jail (including now)? No 08/24/2025 [facility] Utilities Answer Date Recorded In the past 12 months has th e [employer], gas, oil, or water company threatened to [...] drink first t fabian in the morning (EYE-PRODUCTION RECORDER) to steady your nerves or to get [...] documented as of this encounter Care Teams Germination Testing Manager Relationship Specialty Start Date End Date Brad Hassan MD [address] [place] [address] [place] [id number] PCP - General Internal Medicine 08/08/23 Greta Simpson DO [facility] G4 [address] Obstetrics and Gynecology 07/03/23 documented as of this encounter
--- OUTSIDE RECORDS SUMMARY | 2025-10-11 21:09 | XMS_ITS | Encounter Summary ---
Author Organization Healthcare Address [address] [place] [address] Care Team Providers Care Field Software Engineer Name Role Phone Greta Simpson DO Unavailable Brad Hassan MD Primary Care Provider [phone] Encounter Details Date Type Department Care Team (Late st Contact Info) Description 08/23/2025 Orders Only External Location [address] [place] [address] Julianna Copeland, DO [address] [place] [address] Social History Tobacco Use Types [...] in the past [address] [facility], were you homeless or living in a mcfp (including now)? No 08/24/2025 [facility] Utilities Answer Date Recorded In [...] drink first t fabian in the morning (EYE-MATERIALS PLANNING MANAGER) to steady your nerves or to [...] documented as of this encounter Care Teams Field Software Engineer Relationship Specialty Start Date End Date Brad Hassan MD [address] [place] [address] [place] [id number] PCP - General Internal Medicine 08/08/23 Greta Simpson DO [facility] G4 [address] Obstetrics and Gynecology 07/03/23 documented as of this encounter
--- OUTSIDE RECORDS SUMMARY | 2025-10-11 21:09 | XMS_ITS | Encounter Summary ---
Author Organization Healthcare Address [address] [place] [address] Care Team Providers Care Data Engineer Name Role Phone Greta Simpson DO Unavailable [phone] Brad Hassan MD Primary Care Provider [phone] Encounter Details Date Type Department Care Team (Late st Contact Info) Description 08/23/2025 Orders Only External Location [address] [place] [id number] Provider, External Social History Tobacco Use Types [...] any time in the past 12 m [facility], were you homeless or living in a fpc (including now)? No 08/24/2025 [facility] Utilities Answer Date Recorded In the past 12 months has th e [employer], gas, oil, or water company threatened to [...] drink first t fabian in the morning (EYE-SWITCHBOARD OPERATOR) to steady your nerves or to [...] documented as of this encounter Care Teams Data Engineer Relationship Specialty Start Date End Date Brad Hassan MD [address] [place] [address] [place] [id number] PCP - General Internal Medicine 08/08/23 Greta Simpson DO [facility] G4 [address] Obstetrics and Gynecology 07/03/23 documented as of this encounter
--- OUTSIDE RECORDS SUMMARY | 2025-10-11 21:09 | XMS_ITS | Encounter Summary ---
Author Organization Healthcare Address [address] [place] [address] Care Team Providers Care Family Support Coordinator Name Role Phone Greta Simpson DO Unavailable [phone] Brad Hassan MD Primary Care Provider [phone] Encounter Details Date Type Department Care Team (Late st Contact Info) Description 08/23/2025 Orders Only External Location [address] [place] [phone] Provider, External Social History Tobacco Use Types [...] in a fci (including now)? No 08/24/2025 [facility] Utilities Answer Date Recorded In the past 12 months has th e [employer], gas, oil, or water company threatened to [...] drink first t fabian in the morning (EYE-REGISTERED RADIATION THERAPIST) to steady your nerves or to [...] documented as of this encounter Care Teams Family Support Coordinator Relationship Specialty Start Date End Date Brad Hassan MD [address] [place] [address] [place] [address] PCP - General Internal Medicine 08/08/23 Greta Simpson DO [place] G4 [address] Obstetrics and Gynecology 07/03/23 documented as of this encounter
--- OUTSIDE RECORDS SUMMARY | 2025-10-11 21:10 | XMS_ITS | Encounter Summary ---
Author Organization Healthcare Address [address] [place] [address] Care Team Providers Care Slubber Machine Operator Name Role Phone Greta Simpson DO Unavailable [phone] Brad Hassan MD Primary Care Provider [phone] Encounter Details Date Type Department Care Team (Late st Contact Info) Description 08/23/2025 Orders Only External Location [address] [place] [phone] Provider, External Social History Tobacco Use Types [...] any time in the past 12 m [facility], were you homeless or living in a correction (including now)? No 08/24/2025 [facility] Utilities Answer Date Recorded In the past 12 months has th e [employer], gas, oil, or water company threatened to [...] drink first t fabian in the morning (EYE-CINDER PIT WORKER) to steady your nerves or to get [...] documented as of this encounter Care Teams Slubber Machine Operator Relationship Specialty Start Date End Date Brad Hassan MD [address] [place] [address] [place] [address] PCP - General Internal Medicine 08/08/23 Greta Simpson DO [facility] G4 [address] Obstetrics and Gynecology 07/03/23 documented as of this encounter
[2025-10-11 21:11] LABS: Hematocrit 38.4 % (37.0-47.0); Hemoglobin 12.4 g/dL (12.2-16.2); Immature Granulocytes % 0.1 %; Mean Corpuscular HGB Conc 32.3 g/dL (31.8-35.4); Mean Corpuscular Hemoglobin 31.2 pg (27.0-31.2); Mean Corpuscular Volume 96.7 fl (81-99); Nucleated Red Blood Cells % 0 %; Platelet Count 301 K/mm3 (142-424); Red Blood Count 3.97 M/mm3 (4.20-5.40); Red Cell Distribution Width-SD 45.5 fL; White Blood Count 7.2 K/mm3 (4.8-10.8)
--- OUTSIDE RECORDS SUMMARY | 2025-10-11 21:11 | XMS_ITS | Encounter Summary ---
Author Organization Healthcare Address [address] [place] [address] Care Team Providers Care Firebreak Cutter Name Role Phone Greta Simpson DO Unavailable [phone] Brad Hassan MD Primary Care Provider [phone] Encounter Details Date Type Department Care Team (Late st Contact Info) Description 08/23/2025 Orders Only External Location [address] [place] [phone] Provider, External Social History Tobacco Use Types [...] any time in the past 12 m [facility], were you homeless or living in a fpc (including now)? No 08/24/2025 [facility] Utilities Answer Date Recorded In the past 12 months has th e [employer], gas, oil, or water company threatened to [...] drink first t fabian in the morning (EYE-POWERTRAIN CONTROL SYSTEMS ENGINEER) to steady your nerves or to [...] documented as of this encounter Care Teams Firebreak Cutter Relationship Specialty Start Date End Date Brad Hassan MD [address] [place] [address] [place] [id number] PCP - General Internal Medicine 08/08/23 Greta Simpson DO [facility] G4 [address] Obstetrics and Gynecology 07/03/23 documented as of this encounter
--- OUTSIDE RECORDS SUMMARY | 2025-10-11 21:11 | XMS_ITS | Encounter Summary ---
Author Organization Healthcare Address [address] [place] [address] Care Team Providers Care Mine Supervisor Name Role Phone Greta Simpson DO Unavailable [phone] Brad Hassan MD Primary Care Provider [phone] Encounter Details Date Type Department Care Team (Late st Contact Info) Description 08/23/2025 Orders Only External Location [address] [place] [phone] Provider, External Social History Tobacco Use Types [...] time in the past 12 m [facility], were you homeless or living in a custodial (including now)? No 08/24/2025 [facility] Utilities Answer Date Recorded In the past 12 months has th e [employer], gas, oil, or water company threatened to [...] drink first t fabian in the morning (EYE-CHIEF TECHNOLOGIST) to steady your nerves or to get [...] documented as of this encounter Care Teams Mine Supervisor Relationship Specialty Start Date End Date Brad Hassan MD [address] [place] [address] [place] [id number] PCP - General Internal Medicine 08/08/23 Greta Simpson DO [facility] G4 [address] Obstetrics and Gynecology 07/03/23 documented as of this encounter
--- OUTSIDE RECORDS SUMMARY | 2025-10-11 21:11 | XMS_ITS | Encounter Summary ---
Author Organization Healthcare Address [address] [place] [address] Care Team Providers Care Plant Production Manager Name Role Phone Greta Simpson DO Unavailable [phone] Brad Hassan MD Primary Care Provider [phone] Encounter Details Date Type Department Care Team (Late st Contact Info) Description 08/23/2025 Orders Only External Location [address] [place] [id number] Provider, External Social History Tobacco Use Types [...] were you homeless or living in a halfway (including now)? No 08/24/2025 [facility] Utilities Answer Date Recorded In the past 12 months has th e [employer], gas, oil, or water company threatened to [...] drink first t fabian in the morning (EYE-TRAFFIC SUPERVISOR) to steady your nerves or to [...] documented as of this encounter Care Teams Plant Production Manager Relationship Specialty Start Date End Date Brad Hassan MD [address] [place] [address] [place] [address] PCP - General Internal Medicine 08/08/23 Greta Simpson DO [facility] G4 [address] Obstetrics and Gynecology 07/03/23 documented as of this encounter
--- OUTSIDE RECORDS SUMMARY | 2025-10-11 21:12 | XMS_ITS | Encounter Summary ---
Author Organization Healthcare Address [address] [place] [address] Care Team Providers Care Merchandiser Seasonal Name Role Phone Greta Simpson DO Unavailable [phone] Brad Hassan MD Primary Care Provider [phone] Encounter Details Date Type Department Care Team (Late st Contact Info) Description 08/23/2025 Orders Only External Location [address] [place] [phone] Provider, External Social History Tobacco Use Types [...] the past [address] [facility], were you homeless or living in a assisted (including now)? No 08/24/2025 [facility] Utilities Answer Date Recorded In the past 12 months has th e [employer], gas, oil, or water company threatened to [...] drink first t fabian in the morning (EYE-PICK UP AND DELIVERY DRIVER) to steady your nerves or to get [...] documented as of this encounter Care Teams Merchandiser Seasonal Relationship Specialty Start Date End Date Brad Hassan MD [address] [place] [address] [place] [address] PCP - General Internal Medicine 08/08/23 Greta Simpson DO [place] G4 [address] Obstetrics and Gynecology 07/03/23 documented as of this encounter
--- OUTSIDE RECORDS SUMMARY | 2025-10-11 21:12 | XMS_ITS | Encounter Summary ---
Author Organization Healthcare Address [address] [place] [address] Care Team Providers Care Facilities Planner Name Role Phone Greta Simpson DO Unavailable [phone] Brad Hassan MD Primary Care Provider [phone] Encounter Details Date Type Department Care Team (Late st Contact Info) Description 08/23/2025 Orders Only External Location [address] [place] [phone] Provider, External Social History Tobacco Use Types [...] in a mcfp (including now)? No 08/24/2025 [facility] Utilities Answer Date Recorded In the past 12 months has th e [employer]), gas, oil, or water company threatened to [...] drink first t fabian in the morning (EYE-ENGINEERING MANAGER ELECTRONICS) to steady your nerves or to get [...] documented as of this encounter Care Teams Facilities Planner Relationship Specialty Start Date End Date Brad Hassan MD [address] [place] [address] [place] [address] PCP - General Internal Medicine 08/08/23 Greta Simpson DO [facility] G4 [address] Obstetrics and Gynecology 07/03/23 documented as of this encounter
--- OUTSIDE RECORDS SUMMARY | 2025-10-11 21:13 | XMS_ITS | Encounter Summary ---
Author Organization Healthcare Address [address] [place] [address] Care Team Providers Care River Expedition Guide Name Role Phone Greta Simpson DO Unavailable [phone] Brad Hassan MD Primary Care Provider [phone] Encounter Details Date Type Department Care Team (Late st Contact Info) Description 08/23/2025 Orders Only External Location [address] [place] [phone] Provider, External Social History Tobacco Use Types [...] in a long-term (including now)? No 08/24/2025 [facility] Utilities Answer Date Recorded In the past 12 months has th e [employer], gas, oil, or water company threatened to [...] drink first t fabian in the morning (EYE-WAREHOUSE SHIPPING ASSOCIATE) to steady your nerves or to get [...] documented as of this encounter Care Teams River Expedition Guide Relationship Specialty Start Date End Date Brad Hassan MD [address] [place] [address] [place] [address] PCP - General Internal Medicine 08/08/23 Greta Simpson DO [facility] G4 [address] Obstetrics and Gynecology 07/03/23 documented as of this encounter
[2025-10-11 21:21] LABS: Alanine Aminotransferase 48 U/L (12-78); Albumin Level 4.7 g/dl (3.5-5.0); Albumin/Globulin Ratio 1.7 (1.1-1.8); Alkaline Phosphatase 115 U/L (38-126); Anion Gap 16.8 mEq/L (5-15); Aspartate Amino Transferase 48 U/L (14-36); Bilirubin,Total 0.3 mg/dl (0.2-1.3); Blood Urea Nitrogen 14 mg/dl (7-17); Calcium 9.1 mg/dl (8.4-10.2); Carbon Dioxide 24 mmol/L (22.0-30.0); Chloride 103 mmol/L (98-107); Creatinine Clearance Estimated 61 mL/min (50-200); Creatinine,Serum 0.70 mg/dl (0.52-1.04); Estimated Glomerular Filt Rate 84 ml/min (>60); GFR (African American) 101 ML/MIN (>60); Globulin 2.7 g/dL (1.3-3.2); Glucose 195 mg/dl (74-100); Lipase 239 U/L (23-300); Magnesium 1.9 mg/dl (1.6-2.3); Phosphorous 2.6 mg/dl (2.5-4.5); Potassium 3.8 mmoL/L (3.5-5.1); Sodium 140 mmol/L (136-145); Total Protein,Serum 7.4 g/dl (6.3-8.2)
[2025-10-11 21:27] LABS: Lactate Venous 1.9 mmol/L (0.4-2.0); VBG HCO3 22.0 mmol/L (23-30); VBG PCO2 36.4 mmol/L (35-51); VBG PH 7.40 mmol/L (7.31-7.41); VBG PO2 56.9 mmol/L (28-40)
--- NOTE | 2025-10-11 21:29 | CT_ITS ---
PROCEDURE INFORMATION: Exam: CTA Abdomen and Pelvis With Contrast Exam date and time: 10/11/2025 10:10 PM Age: 65 years old Clinical indication: Other: Vomiting TECHNIQUE: Imaging protocol: Computed tomographic angiography of the abdomen and pelvis with contrast. Exam focused on the arteries. 3D rendering (Not supervised by radiologist): MIP and/or 3D reconstructed images were created by the technologist. Radiation optimization: All CT scans at this facility use at least one of these dose optimization techniques: automated exposure control; mA and/or kV adjustment per patient size (includes targeted exams where dose is matched to clinical indication); or iterative reconstruction. Contrast material: ISOVUE; Contrast volume: 80 ml; Contrast route: INTRAVENOUS (IV); COMPARISON: CT ANGIO ABDOMEN PELVIS 08/23/2025 5:52 PM FINDINGS: Lungs: 4 mm left lower lobe calcified granuloma. 7 mm and 5 mm left lower lobe noncalcified pulmonary nodules or granulomas. Lower mediastinal space: Small hiatal hernia with mild lower esophageal thickening suggestive of esophagitis. Aorta: No acute abnormality. No aortic aneurysm or dissection. Celiac and mesenteric arteries: No occlusion or significant stenosis. Renal arteries: No occlusion or significant stenosis. Right iliac arteries: No occlusion or significant stenosis. Left iliac arteries: No occlusion or significant stenosis. Liver: No acute abnormality. No mass. Gallbladder and biliary ducts: Unremarkable. No calcified stones. No ductal dilation. Pancreas: No acute abnormality. No mass. No ductal dilation. Spleen: No acute abnormality. Small calcified granuloma. Adrenal glands: No significant or acute abnormality. Kidneys and ureters: No significant or acute abnormality. No solid mass. No hydronephrosis. Stomach and bowel: No significant large or small bowel distention. Colonic diverticulosis without CT evidence of diverticulitis. Appendix: No findings to suggest acute appendicitis. Intraperitoneal space: No significant fluid collection. No free air. Lymph nodes: No enlarged lymph nodes. Urinary bladder: Unremarkable. No mass. Reproductive: Previous hysterectomy. Bones/joints: Mild lumbar dextroscoliosis. Multilevel spondylosis and degenerative bony changes. Soft tissues: Anterior abdominal wall scarring. IMPRESSION: 1. Small hiatal hernia with mild lower esophageal thickening suggestive of esophagitis. 2. Colonic diverticulosis without CT evidence of diverticulitis. 3. Previous cholecystectomy and hysterectomy. 4. 7 mm and 5 mm left lower lobe noncalcified pulmonary nodules or granulomas. Recommend comparison with prior chest CT studies.
--- NOTE | 2025-10-11 21:29 | CT_ITS ---
PROCEDURE INFORMATION: Exam: CTA Neck With Contrast Exam date and time: 10/11/2025 10:08 PM Age: 65 years old Clinical indication: Dizziness and giddiness TECHNIQUE: Imaging protocol: Computed tomographic angiography of the neck with contrast. Exam focused on the cervical segments of the vasculature. 3D rendering (Not supervised by radiologist): MIP and/or 3D reconstructed images were created by the technologist. Radiation optimization: All CT scans at this facility use at least one of these dose optimization techniques: automated exposure control; mA and/or kV adjustment per patient size (includes targeted exams where dose is matched to clinical indication); or iterative reconstruction. Contrast material: ISOVUE; Contrast volume: 80 ml; Contrast route: INTRAVENOUS (IV); COMPARISON: CT ANGIO NECK 10/11/2025 10:08 PM FINDINGS: Right common carotid artery: No stenosis. No dissection or occlusion. Right internal carotid artery: No stenosis of the extracranial segment. No dissection or occlusion. Right external carotid artery: No occlusion or stenosis of the origin. Left common carotid artery: No stenosis. No dissection or occlusion. Left internal carotid artery: No stenosis of the extracranial segment. No dissection or occlusion. Left external carotid artery: No occlusion or stenosis of the origin. Right vertebral artery: Dominant right vertebral artery. Left vertebral artery: Atretic left cervical vertebral artery. Soft tissues: Normal. No significant soft tissue swelling. Bones/joints: Multilevel facet arthropathy. Multilevel degenerative disc disease predominantly at C4-C5, C5-C6 and C6-C7 levels with disc space narrowing and small posterior projecting disc osteophyte complexes. IMPRESSION: 1. Patent carotid vessels. 2. Dominant right vertebral artery. 3. Atretic left cervical vertebral artery. 4. Multilevel facet arthropathy. 5. Multilevel degenerative disc disease predominantly at C4-C5, C5-C6 and C6-C7 levels with disc space narrowing and small posterior projecting disc osteophyte complexes. REFERENCES: NASCET CRITERIA. The degree of stenosis in the cervical segment of the internal carotid artery is based on NASCET criteria. Normal is no stenosis. Mild is less than 50% stenosis. Moderate is 50-69% stenosis. Severe is 70% to 99% stenosis. Total occlusion is no detectable patent lumen.
--- NOTE | 2025-10-11 21:29 | CT_ITS ---
PROCEDURE INFORMATION: Exam: CTA Head With Contrast, Arteriography Exam date and time: 10/11/2025 10:08 PM Age: 65 years old Clinical indication: Dizziness and giddiness TECHNIQUE: Imaging protocol: Computed tomographic angiography of the head with contrast. Exam focused on the arteries. 3D rendering (Not supervised by radiologist): MIP and/or 3D reconstructed images were created by the technologist. Radiation optimization: All CT scans at this facility use at least one of these dose optimization techniques: automated exposure control; mA and/or kV adjustment per patient size (includes targeted exams where dose is matched to clinical indication); or iterative reconstruction. Contrast material: ISOVUE; Contrast volume: 80 ml; Contrast route: INTRAVENOUS (IV); COMPARISON: CT HEAD/BRAIN WO CON 10/11/2025 10:06 PM FINDINGS: ANTERIOR CIRCULATION: Right internal carotid artery: Intracranial segment is patent with no significant stenosis. No aneurysm. Right middle cerebral artery: No occlusion or significant stenosis. No aneurysm. Right anterior cerebral artery: No occlusion or significant stenosis. No aneurysm. Left internal carotid artery: Intracranial segment is patent with no significant stenosis. No aneurysm. Left middle cerebral artery: No occlusion or significant stenosis. No aneurysm. Left anterior cerebral artery: No occlusion or significant stenosis. No aneurysm. POSTERIOR CIRCULATION: Right vertebral artery: Patent intracranial right vertebral artery and vertebrobasilar junction. Left vertebral artery: Severely atretic intracranial left vertebral artery. Basilar artery: See Right vertebral artery finding. Right posterior cerebral artery: No occlusion or significant stenosis. No aneurysm. Left posterior cerebral artery: No occlusion or significant stenosis. No aneurysm. Brain: No significant filling of the left PICA distribution. Cerebral ventricles: No ventriculomegaly. Bones/joints: Unremarkable. No acute fracture. Soft tissues: Unremarkable. Other findings: No evidence for large vessel occlusion. IMPRESSION: 1. No evidence for large vessel occlusion. 2. Severely atretic intracranial left vertebral artery. 3. No significant filling of the left PICA distribution. 4. Patent intracranial right vertebral artery and vertebrobasilar junction.
--- NOTE | 2025-10-11 21:29 | CT_ITS ---
PROCEDURE INFORMATION: Exam: CT Head Without Contrast Exam date and time: 10/11/2025 10:06 PM Age: 65 years old Clinical indication: Dizziness; Additional info: Vomiting, dizziness TECHNIQUE: Imaging protocol: Computed tomography of the head without contrast. Radiation optimization: All CT scans at this facility use at least one of these dose optimization techniques: automated exposure control; mA and/or kV adjustment per patient size (includes targeted exams where dose is matched to clinical indication); or iterative reconstruction. COMPARISON: CT HEAD/BRAIN WO CON 08/23/2025 4:13 PM FINDINGS: Brain: No evidence for intracranial hemorrhage, mass lesions or acute stroke. Intracranial vascular calcifications. Mild small vessel ischemic change in the periventricular white matter. Cerebral ventricles: No ventriculomegaly. Pituitary gland and sella: Negative Paranasal sinuses: Visualized sinuses are unremarkable. No fluid levels. Mastoid air cells: Visualized mastoid air cells are well aerated. Orbital cavities: Negative. Bones: Unremarkable. No acute fracture. Soft tissues: Unremarkable. Vasculature: Negative. Other findings: Mild generalized atrophy. IMPRESSION: 1. No evidence for intracranial hemorrhage, mass lesions or acute stroke. 2. Intracranial vascular calcifications. 3. Mild generalized atrophy. 4. Mild small vessel ischemic change in the periventricular white matter.
--- NOTE | 2025-10-11 21:47 | ECG_ITS ---
APPROVED REPORT Exam: Resting ECG HR:85 bpm ECG Measurements Heart Rate 85 AXES KS 182 P 63 QRSd 92 QRS 26 QT 361 T 63 QTc 403 Conclusion SINUS RHYTHM WITH SINUS ARRHYTHMIA NONSPECIFIC T-WAVE ABNORMALITY NO sTEMI Electronically signed by : KAREL COOPER, 10/14/2025 03:11:43
[2025-10-11] MEDS: ONDANSETRON 4MG/2ML VIAL 4 MG IV (21:48)
[2025-10-11] MEDS: 0.9 % SODIUM CHLORIDE 1000ML 500 ML 999 ML IV (21:49)
[2025-10-11 21:54] LABS: NT Pro Brain Natriuretic Pep. 118 pg/mL (0-125)
[2025-10-11 22:01] LABS: Troponin I < 0.01 ng/ml (0.00-0.034)
[2025-10-11] MEDS: IOPAMIDOL-370 (76%);100ML BOTTLE 160 ML IV (22:11)
[2025-10-11] MEDS: SODIUM CHLORIDE 0.9% 10ML SYR (RAD ONLY) 10 ML IV (22:12)
[2025-10-11] MEDS: 0.9 % SODIUM CHLORIDE 50 ML VIAL 100 ML IV (22:12)
[2025-10-11] MEDS: ACETAMINOPHEN 1,000MG/100ML VIAL 1000 MG IV (22:35)
[2025-10-11 22:51] LABS: Microscopic, Urine URINE MICROSCOPIC (MICROSCOPIC)
[2025-10-11 23:06] LABS: Bilirubin,Urine Negative (Negative); Color,Urine YELLOW (Yellow); Glucose,Urine (UA) 3+ (Negative); Ketones,Urine Negative (Negative); Leukocyte Esterase,Urine Negative (Negative); PH,Urine 7.0 (5.0-8.5); Protein,Urine Negative (Negative); Specific Gravity, Urine 1.010 (1.005-1.030); Urobilinogen,Urine 0.2 EU/dl (0.2)
[2025-10-11 23:28] LABS: RBC,Urine Occasional #/hpf (0-3); WBC,Urine Occasional #/hpf (0-3)
[2025-10-11 23:29] LABS: Bacteria,Urine 1+ /lpf
[2025-10-12 01:01] VITALS: BP 157/78; PULSE 93; RESP 20; TEMP 36.6; O2SAT 96
== END 2025-10-12 01:08 | disposition home or self-care (01) ==
PROVIDERS: Emergency Provider Student in an Organized Health Care Education/Training Program; PCP Nurse Practitioner Family
DX: R10.13 Epigastric pain (principal); R11.2 Nausea with vomiting, unspecified; R51.9 Headache, unspecified; R42 Dizziness and giddiness; R19.7 Diarrhea, unspecified; I11.0 Hypertensive heart disease with heart failure; I50.20 Unspecified systolic (congestive) heart failure
CPT/HCPCS: 70450; 70496; 70498; 74174; 80053; 81001; 82803; 83690; 83735; 83880; 84100; 84484; 85025; 87086; 93005; 96374; 96375; 99285; J0131; J2405; J7030; Q9967

== ENCOUNTER 2025-10-12 10:25 | Outpatient (CLI) | payer MEDICARE, MEDICAID, SELFPAY | END 2025-10-12 23:59 | disposition home or self-care (01) | LOC: RT 10:26 | PROVIDERS: PCP Nurse Practitioner Family; Visit Provider Physician Assistant | DX: I48.0 Paroxysmal atrial fibrillation (principal) | CPT/HCPCS: 93270 ==

== ENCOUNTER 2025-10-19 10:44 | Outpatient (CLI) | payer MEDICARE, MEDICAID, SELFPAY ==
--- OUTSIDE RECORDS SUMMARY | 2025-08-23 20:41 | XMS_ITS | Encounter Summary ---
Author Organization Healthcare Address [address] [id number] Care Team Providers Care Expenditure Requisition Clerk Name Role Phone Greta Simpson DO Unavailable [phone] Brad Hassan MD Primary Care Provider [phone] Reason for Referral * Consultation (Routine) - Authorized Specialty Diagnoses / Procedures Referred By Contac t Referred To Contact Neurology Diagnoses Fall, initial encounter Delirium Rodney Dwyer APRN [address] [place] [address] Phone: tel: fax: [place] [facility] [address], [address] [place] [address] Phone: tel: fax: Referral ID Status Reason Start Date Expiration Date Visits Requested Visits Authorized [id number] Authorized Specialty Services Required 5 03/03/2027 1 1 Reason for Visit * Reason Comments Fall * Auth/Cert (Routine) Specialty Diagnoses / Procedures Referred By Contac t Referred To Contact Diagnoses Fall from standing, initial encounter Fall, laid on shoulder all night, right shoulder ball and socket joint fx Nikole Mann MD [address] [facility] [address] [place] [address] Phone: tel: fax: [facility] Emergency Department [address] [place] [address] Phone: tel: Referral ID Status Reason Start Date Expiration Date Visits Re quested Visits Authorized [id number] 1 1 Encounter Details Date Type Department Care Team (Latest Contact Info) Description 08/23/2025 9:41 PM EDT - 09/01/2025 3:35 PM EDT Hospital Encounter [facility] Inpatient [address] [id number] Flaquito Lerma MD [address] [place] [address] Kwesi Yang MD [address] [place] [address] Nikole Mann MD [address] [facility] [address] [place] [address] Juan Otero MD [address] [facility] [address] [place] [address] Caro Barry MD [address] [facility] [place] [address] Ester Vivas MD [address] [facility] [place] [address] Izzy Griffith MD [address] [place] [address] Fall, initial encounter (Primary Dx); Fx humeral neck, right, closed, initial encounter; Delirium Discharge Disposition: [facility] Facility Social History Tobacco Use Types Packs/Day [...] any time in the past 12 m co[place], were you homeless or living in a long-term (including now)? No 08/24/2025 [facility] Utilities Answer Date Recorded In [...] drink first t fabian in the morning (EYE-CIRCUIT COURT JUDGE) to steady your nerves or to get [...] 8:30AM @ Orthopaedic Surgery & Sports Medicine; [facility], [address] [place] [address] First Floor, Wing C, Room [address], [place] [address], # [phone]. SGT: BRANDON Saturday Clinic as needed; [address] [place] [address] First Floor, Wing [address] [address], #[phone]. Questions or Concerns and Appointments If there are questions or concerns after discharge from the hospital, please call [phone] and ask for Blue Surgery Nurse. Working hours are Saturday - Saturday 8:00 AM to 4:00 PM. After hours, weekends and holidays please call [phone] and ask for the resident line installation supervisor for Blue Surgery. For appointments please call [phone]. Medication requests should be made between the hours of 9:00 AM to 3:00 PM Saturday thru Saturday. Please note that based upon recent changes to [place] law related to prescribing opioid pain medications, [...] Note Madyson Machado 65 y.o. female CSN: [id number] Admission: 08/23/2025 9:41 PM Primary Problem: Fall Primary Driveway Attendant: Primary Caregiver: Self Assistance Available at Discharge: Current Outpatient/Agency/Support Group: DME Availability of Care Givers (#Hours): 24 hours Housing Circumstances-Z Codes: Housing Circumstances (select all that apply): Low Income (101-300% Federal Poverty Guidlines) - Z596 Patient Referred to Financial or Community Resources: Discharge Facility/Level of Care Needs: Discharge Facility/Level of Care Needs: 3-[facility] Facility Patient's Choice of Community Agency(s): Patient/Family Anticipated Services at Transition: Patient/Family Anticipated Services at Transition: senior living, rehabilitation services DME/Equipment Needed after Discharge: Equipment Currently Used at Home: cane, straight Readmission Within the Last 30 Days: Readmission Within the Last 30 Days: no previous admission in last 30 days Medicare Documentation: Follow-up: [address] [address] Follow up Primary care provider (PCP) Brad Hassan MD [address] [place] [address] Julianna Copeland S, DO [address] [facility] [address] [place] [facility] [address], 1st Floor Wing [address] [facility] [address] Discharge Transportation: Transportation Anticipated: medical transport Transportation Home at Discharge: Medical Transport Has discharge transport been arranged?: Yes What day is the transport expected?: 09/01/25 What time is the transport expected?: 1500 Follow Up Transport: Transportation Needed to Follow up Appoinments: Medical Transport Additional Comments: Per SGT provider, pt is medically ready for d/c to [facility] this day. Pt has been accepted to [facility] and has a bed and insurance auth this day. [facility] stretcher transport scheduled for bedside pickup at 15:00. RN to call report to [phone]. Pt daughter is aware and agreeable to [...] controlled substances: ? Drug Enforcement Agency (JONATHON): http://www.deadiversion.Atlas PoweredoFlurry.gov/drug_disposal/takeback/index.htm ? National Association of Drug Diversion Investigators (NADDI): http://rxdrugdropbox.org/ ? [place] Office of Drug Control Policy: http://odcp.ne.gov/Prescription+Drug+Drop+Box+Sites.htm Are there concerns about or ? ? [...] look blue or purple What is a [facility] report? [facility] is a system that tracks prescriptions of controlled substances in [place]. The PITO report tells your doctor if you have been prescribed controlled substances in the past. Doctors must get a PITO report before prescribing controlled substances. What can I do if the information in my PITO report is wrong? You or your doctor may contact the dispenser who reported the information to [facility]. If the dispenser agrees that the information should be changed, he or she can fix the PITO report. However, the dispenser may certify that the report is correct. If that is the case, you or your doctor may then call the [place] Drug Enforcement and Professional Practices Branch at .This will start an investigation of the error. * [facility] - Declan Chew RN - 09/01/2025 1:23 PM EDT Images from the original note were not included. 1087 Oxycodone Oral Tablet, Immediate Release Brand Names: Oxaydo, Roxicodone What is this medicine? Oxycodone (vk-d-BFC-done) is an opioid pain reliever. It is used to treat moderate to severe pain. What should I tell my health care provider before I take this medicine? They need to know if you have any of these conditions: ? Rockland's disease ? 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 ? Overdosage: Taking too [...] should report to your doctor or health health care consultant as soon as possible: ? allergic reactions [...] attention (report to your doctor or health health care consultant if they continue or are bothersome): ? constipation ? dry mouth ? itching ? nausea, vomiting ? upset stomach This list may not describe all possible side effects. Call your doctor for medical advice about side effects. You may report side effects to FDA at 4-885-XQS-2936. Where should I keep my medicine? This [...] location. To find a disposal location, visit [employer]/[place]. If you cannot take unused medicine to a proper location, you can mix the medicine with coffee grounds or fausto litter and dispose of in the normal trash. Your doctor may also give you a special disposal pouch for this medicine. You can also flush the medicine down the toilet. * [facility] - Declan Chew RN - 09/01/2025 1:23 PM EDT Images from the original note were not included. [id number] Naloxone Nasal Prosperity WHY is this medicine prescribed? Prescription and [...] pharmacist for the instructions or visit the grocery clerk marking's website to get the instructions. You should [...] or doctor for a copy of the grocery clerk marking's information for the patient. Are there OTHER [...] and out of their sight and reach. https://www.DreamNotes.org Dispose of unneeded medications in a way [...] of all of the prescription and nonprescription (wxkq-nxy-tdjcouj) medicines, vitamins, minerals, and dietary supplements you [...] or pharmacist about specific clinical use. The [place] [employer]. represents that the information provided hereunder was formulated with a reasonable standard of care, and in conformity with professional standards in the field. The [place] [employer]. makes no representations or warranties, express or implied, including, but not limited to, any implied warranty of merchantability and/or fitness for a particular purpose, with respect to such information and specifically disclaims all such warranties. Users are advised that decisions regarding drug therapy are complex medical decisions requiring the independent, informed decision of an appropriate health health care consultant, and the information is provided for informational purposes only. The entire monograph for a drug should be reviewed for a thorough understanding of the drug's actions, uses and side effects. The [place] [employer] does not endorse or recommend the use of any drug.The information is not a substitute for medical care. AHFS?? Patient Medication Information?. ?? Copyright, 2023. The [place] [employer] of [employer]-System Pharmacists??, [address], [address], [place], [place]. All Rights Reserved. Duplication for commercial use must be authorized by [facility]. Selected Revisions: May 23, 2024. AHFS?? Patient Medication Information?. ?? Copyright, 2024 * Discharge Summary - Rodney Dwyer, PLC PROGRAMMER - 09/01/2025 1:19 PM EDT Hospitalization Admit Date/Time: 08/23/2025 9:41 PM Admitting Attending: Nikole Mann Discharge Date: 09/01/25 Discharge Attending Physician: Juan Otero MD PCP name and Address: Brad Hassan MD [address] / [place] [address] Referring provider name and address: Julianna Copeland, DO [address] [place] [address] Chief Concern, Brief History of Present Illness, [...] and so will be discharged to [facility] in [place]. DVT prophylaxis: None on discharge Procedures: None [...] 8:30AM @ Orthopaedic Surgery & Sports Medicine; [facility], [address] [place] [address], First Floor, Wing C, [address], [place] [address], # [phone]. SGT: BRANDON Saturday Clinic as needed; [address] [place] [address] First Floor, [address] [address], #[phone]. Questions or Concerns and Appointments If there are questions or concerns after discharge from the hospital, please call [phone] and ask for Blue Surgery Nurse. Working hours are Saturday - Saturday 8:00 AM to 4:00 PM. After hours, weekends and holidays please call [phone] and ask for the resident line installation supervisor for Blue Surgery. For appointments please call [phone]. Medication requests should be made between the hours of 9:00 AM to 3:00 PM Saturday thru Saturday. Please note that based upon recent changes to [place] law related to prescribing opioid pain medications, [...] Your Medications These [place] - [address] [address] [address] [facility] [address] naloxone 4 mg/0.1 mL nasal spray oxyCODONE [...] Center 10/06/2025 9:10 AM Ricki Clark MD [facility] [place] Test Results Pending At Discharge [...] normal. Discharge Disposition/Condition Disposition: Rehab facility (specify)[facility] [place] Condition: Stable (s/sx potential problems absent or manageable) I spent >30 minutes of patient care and instruction time in preparation for this discharge. Cosigned by Juan Otero MD at 09/01/2025 1:34 PM EDT Associated attestation - Juan Otero MD - 09/01/2025 1:34 PM EDT The patient was seen only by Advanced Practice Provider (BRANDON). Juan Otero MD, CYDNEY master deputy sheriff court security Division of Acute Care Surgery * El[facility] - Declan Chew RN - 09/01/2025 11:01 AM EDT Images from the original note were not included. [address] Preventing Falls: Making Changes in Your Living [...] might need to talk to your building official or homeowners' association about them. ? Have [...] removal. Last Reviewed Date: 2025 00:00:00 ?? 1846-2123 [employer]. All rights reserved. This information is not intended as a substitute for professional medical care. Always follow your healthcare professional's instructions. * [facility]o Sof[facility] - Declan Chew RN - 09/01/2025 11:01 AM EDT Images from the original note were not included. [id number] Fall Prevention Falls often take place due [...] medical history, your current prescriptions and your fgky-qjh-afbrscl medicines. As a general rule, the National [place]ble on Aging (NCA) recommends taking one-third of [...] often. Last Reviewed Date: 2025 00:00:00 ?? 5921-4108 [employer]. All rights reserved. This information is not intended as a substitute for professional medical care. Always follow your healthcare professional's instructions. * Elo Alcantar - Declan Chew, RN - 09/01/2025 11:01 AM EDT Images from the original note were not included. 45048 Wearing a Cuff and Collar Sling What [...] part of the sling breaks. * [facility] - Declan Chew RN - 09/01/2025 11:01 [...] of your leg. This is also called ?Abmdjd-og-Ylc Weight Bearing,? ?Toe-Touch Weight Bearing,? or ?Foot-Flat [...] from the original note were not included. 06731 Understanding a Humerus Fracture When you have [...] pain. ? Pain medicines. Taking prescription or pfea-uua-luxyxzu pain medicines may help reduce pain and [...] symptoms. Last Reviewed Date: 2025 00:00:00 ?? 2283-7252 [employer]. All rights reserved. This information is not [...] Note Madyson Machado 65 y.o. female CSN: [id number] Admission: 08/23/2025 9:41 PM Primary Problem: Fall Additional Comments Per SGT provider, pt not medically ready for d/c. Pt pending neuropsych evaluation for decisional capacity, CXR, and EKG. EDUARD updated [facility] [place] liaison and pt daughter. Per [facility] liaison, [...] patient or nursing. Edited by: Rodney Dwyer, PLC PROGRAMMER at 08/31/2025 1335 Relevant review of systems [...] APRN * Progress Notes - Nicolle Raymundo, ALEX-ALMOND PASTE MIXER - 08/31/2025 12:11 PM EDT Speech Language Pathology Clinical Swallow Initial Evaluation Patient Name: Brigid Machado Age: 65 y.o. Today's Date: 08/31/2025 Recommendations: Easy to chew (IDDSI Level 7) diet w/ thin liquids (Level 0). Meds up to whole w/ puree/pudding. 1:1 for feeding assistance. ALMOND PASTE MIXER will follow. History/Background Information 65 y/o female [...] Positionin-90 degrees Feeding assistance: intermittent assistance from ALMOND PASTE MIXER or caregiver Consistencies Administered: ice chips, thin [...] liquid, therefore,meds should be administered in puree/pudding. ALMOND PASTE MIXER to follow to determine readiness for diet texturemodification. If AMS worsens, pt should be made NPO until ALMOND PASTE MIXER clinical re-evaluation. Prognosis: Good for improved function [...] C+C. Please page ORF with any questions: [phone] Talon Ramos Orthopaedic Surgery and Sports Medicine [facility] * Care Plan - Bety Paz [...] Per MD, patient medically to DC to [facility]. KATTY spoke with patient's daughter Latosha Banerjee ([phone]) and she is still agreeable to [facility] [place]. However, she said her and patient wanted surgery on patient's arm done before rehab. QUINTIN Bojorquez checking with Ortho. KATTY spoke with [facility] liaison Sumi ([phone]) to update and and she is checking [...] all needs met. RN req uesting self-releasing [place] strap be donned. RN aware of session [...] functional mobility, functional strength, and activity tolerance. SOCIAL SECURITY SPECIALIST provided verbal and tactile cues to [...] flexion. Bed Mobility Exam: Scooting/Bridging Level of Levy: Minimum assist (75% patient's effort) Physical/Nonphysical Assist: Verbal Cues, Minimal cues Assistive Device: Other (DROP COUNT ASSOCIATE/LUE) Bed Mobility Exam: Supine to Sit Level of Levy: Minimum assist (75% patient's effort) Physical/Nonphysical Assist: Verbal Cues, Nonverbal cues (demo/gestures), HOB elevated, Moderate cues Assistive Device: Other (DROP COUNT ASSOCIATE/LUE and trunk) Transfers Transfer Interventions: Provided cues for proper hand placement, NWB RUE, BLE set-up, forward trunkleans to initiate coming to stand, and safe descent to sit. Transfer Exam: Sit to stand Level of Levy: Minimum assist (75% patient's effort) Physical/Nonphysical Assist: Verbal Cues, Nonverbal cues (demo/gestures), Moderate cues Assistive Device: Hand held assist Transfer Exam: Stand to Sit Level of Levy: Minimum assist (75% patient's effort) Physical/Nonphysical Assist: [...] Injury Flowsheets Taken 08/30/2025 105 by Yumiko Myas RN Body Position: weight shifting Taken 08/25/20252029 [...] Edited by: Leroy Roa PA at 08/30/2025 0966 Relevant review of systems was obtained as [...] Sports Medicine Orthopedic Reconstructiion (MARAVILLA) Service Pager: [phone] Orthopedic Trauma ([facility]) Service Pager: [phone] Cosigned by Ricki Clark MD at 08/30/2025 [...] reduction at [facility] Ortho following, appreciate recs [facility] NWB RUE F/u x-rays on 08/27, [...] reduction at [facility] Ortho following, appreciate recs [facility] NWB RUE F/u x-rays on 08/27, operative plans pending after discussion with attending on 08/29 Fall from standing, initial encounter Present on Admission: Yes Possible orthostatic fall Admit to [facility] 08/24 Dizziness Present on Admission: Yes Questionable [...] saw and evaluated the patient with the WOMEN NURSE student. I discussed the case with the WOMEN NURSE student and agree with the findings and [...] reduction at OSH Ortho following, appreciate recs [facility] NWB RUE F/u x-rays on 08/27, [...] reduction at OSH Ortho following, appreciate recs [facility] NWB RUE F/u x-rays on 08/27, [...] Note Madyson Machado 65 y.o. female CSN: [id number] Room/Bed 230/230A Nutrition evaluation type: assessment Reason for evaluation: [facility] Hospital course: 65 y o F admitted [...] 1 oz) Estimated Needs: Kcal: 25-30 kcal/kg (9278-8430 kcal/d) Current Nutrition Intake: Diet: Consistent CHO 2 Supplements: none Intake: no po intake recorded since admit 4 days ago Nutrition Support: None at this time Diet Experience & Nutrition History: Diet Education: Will monitor Pertinent Home Medications: Cinnamon, Jardiance, [place]-3, Prilosec, Pravachol, Aldactone, Mounjaro Nutrition Focused Physical [...] Note Madyson Machado 65 y.o. female CSN: [id number] Admission: 08/23/2025 9:41 PM Primary Problem: Fall from standing, initial encounter Additional Comments Per SGT provider, plan for neuropsych evaluation to determine decisional capacity. Pt has been clinically accepted to [facility] for short-term rehab and will require insurance auth prior to admission. SW s/w pt daughter this day who reports she is uncertain if pt family will be able to provide assistance at home and pt may require LTC in nursing facility. No LTC bed at [facility] this time and SW will need to [...] reduction at OSH Ortho following, appreciate recs [facility] NWB RUE F/u x-rays on 08/27, [...] CTM * Assessment & Plan Note - Jiada Shipman PA - 08/27/2025 2:31 PM EDT [...] x 5.7 x 11.2 cm solid/cystic areas, LA 8 - MIKE/BSO 08/08/2023: Mitotically active cellular [...] time. Participants in Care Family/Caregiver Present: No Speed Runner: Not Applicable Presentation Oxygen Therapy: None (Room [...] Mobility Bed Mobility Exam: Scooting/Bridging Level of Levy: Minimum assist (75% patient's effort) (seated scooting to EOB) Physical/Nonphysical Assist: Verbal Cues, Minimal cues Assistive Device: Bed rails (L UE; drawsheet) Bed Mobility Exam: Supine to Sit Level of Levy: Minimum assist (75% patient's effort) Physical/Nonphysical Assist: Verbal Cues, Nonverbal cues (demo/gestures), HOB elevated, Additional assist utilized for safety, Moderate cues Assistive Device: Bed rails (L UE) Bed Mobility Exam: Sit to Supine Level of Levy: Minimum assist (75% patient's effort) Physical/Nonphysical Assist: Verbal Cues, Nonverbal cues (demo/gestures), Additional assist utilized for safety, Moderate cues Assistive Device: Bed rails, Other (L UE) Transfers Transfer Exam: Sit to stand Level of Levy: Minimum assist (75% patient's effort) Physical/Nonphysical Assist: Verbal Cues, Nonverbal cues (demo/gestures), Additional assist utilized for safety, Moderate cues Assistive Device: Hand held assist (LUE) Transfer Exam: Stand to Sit Level of Levy: Minimum assist (75% patient's effort) Physical/Nonphysical Assist: Verbal Cues, Nonverbal cues (demo/gestures), Additional assist utilized for safety, Moderate cues Assistive Device: Hand held assist (LUE) Transfer Exam: Bed to Chair/Chair to Bed Level of Levy: Minimum assist (75% patient's effort) Physical/Nonphysical Assist: Verbal Cues, Moderate cues, Nonverbal cues (demo/gestures), Additionalassist utilized for safety Type of Transfer: Sidesteps Assistive Device: Hand held assist (LUE) Toilet Transfer Level of Levy: Minimum assist (75% patient's effort) Physical/Nonphysical Assist: [...] session. Participants in Care Family/Caregiver Present: No Speed Runner: Not Applicable Presentation Oxygen Therapy: None (Room [...] Mobility Bed Mobility Exam: Scooting/Bridging Level of Levy: Minimum assist (75% patient's effort) (seated scooting to EOB) Physical/Nonphysical Assist: Verbal Cues, Minimal cues Assistive Device: Bed rails, Other (drawsheet) Bed Mobility Exam: Supine to Sit Level of Levy: Minimum assist (75% patient's effort) Physical/Nonphysical Assist: Verbal Cues, Nonverbal cues (demo/gestures), HOB elevated, Additional assist utilized for safety, Moderate cues Assistive Device: Bed rails Bed Mobility Exam: Sit to Supine Level of Levy: Minimum assist (75% patient's effort) Physical/Nonphysical Assist: Verbal Cues, Nonverbal cues (demo/gestures), Additional assist utilized for safety, Moderate cues Assistive Device: Bed rails, Other (LE management) Transfers Transfer Exam: Sit to stand Level of Levy: Minimum assist (75% patient's effort) Physical/Nonphysical Assist: Verbal Cues, Nonverbal cues (demo/gestures), Additional assist utilized for safety, Moderate cues Assistive Device: Hand held assist (LUE) Transfer Exam: Stand to Sit Level of Levy: Minimum assist (75% patient's effort) Physical/Nonphysical Assist: Verbal Cues, Nonverbal cues (demo/gestures), Additional assist utilized for safety, Moderate cues Assistive Device: (LUE) Transfer Exam: Bed to Chair/Chair to Bed Level of Levy: Minimum assist (75% patient's effort) Physical/Nonphysical Assist: Verbal Cues, Moderate cues, Nonverbal cues (demo/gestures), Additionalassist utilized for safety Type of Transfer: Sidesteps Assistive Device: Hand held assist (LUE) Toilet Transfer Level of Levy: Minimum assist (75% patient's effort) Physical/Nonphysical Assist: [...] with min assist x 2 using LUE DROP COUNT ASSOCIATE. Pt additionally completed functional bed> bed side [...] with min assist x 2 using LUE DROP COUNT ASSOCIATE. Therapist provided min-mod verbal cues for sequencing, [...] reduction at OSH Ortho following, appreciate recs [facility] NWB RUE F/u x-rays on 08/28, [...] Edited by: Jaida Shipman PA at 08/26/2025 4121 Relevant review of systems was obtained as [...] fall Admit to [facility] 6 [facility] 08/24 Dizziness Present on Admission: Yes Questionable [...] x 5.7 x 11.2 cm solid/cystic areas, LA 8 - MIKE/BSO 08/08/2023: Mitotically active cellular [...] Trendelenburg. Evans Russo MD Orthopaedic Surgery PGY1 [facility] [place] Personal Pager: [phone] Orthopaedic Trauma Service Pager: [phone] Orthopaedic Recon/Spine/Foot and Ankle Service Pager: [phone] Cosigned by Ricki Clark MD at 08/26/2025 [...] reduction at OSH Ortho following, appreciate recs [facility] NW[facility] RUE, anticipate non-op * Assessment [...] PO diet, noN/V, abd pain. Last BM SOCIAL SECURITY SPECIALIST. Mobilizing as able. Pain well controlled. Denies alcohol, tobacco or illicit drug use. Discussed plan of care with patient, who is in understanding. No further concerns per patient or nursing. Edited by: Jaida Shipmna PA at 08/25/2025 1341 Are there limits on this patient's care or advanced wishes/documents available? No Past Medical History: Active Ambulatory Problems Diagnosis Date Noted Pelvic mass 07/15/2023 Thickened endometrium 07/15/2023 PMB (postmenopausal bleeding) 07/15/2023 Resolved Ambulatory Problems Diagnosis Date Noted No Resolved Ambulatory Problems Past Medical History: Diagnosis Date Adverse effect of anesthesia Anxiety Arthritis Dental disease Depression Diabetes ([facility]) HL (hearing loss) Hyperlipidemia Hypertension Joint pain [...] Admission: Yes Possible orthostatic fall Admit to [facility] Tertiary 08/24 Dizziness Present on Admission: Yes [...] x 5.7 x 11.2 cm solid/cystic areas, LA 8 - 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 Thickened endometrium PMB (postmenopausal bleeding) Plan: - Tertiary 08/25 complete - Ortho: non-op, ortho following for serial x-rays - Syncope: work up pending, ECHO, carotid Duplex - [facility] - Bowel regimen - PT/OT Dispo: Subacute rehab Edited by: Jaida Shipman PA at 08/25/2025 3996 QUINTIN Redman New diagnoses, need for imaging [...] and so will be discharged to [facility] in [place]. DVT prophylaxis: None on discharge Procedures: None [...] 8:30AM @ Orthopaedic Surgery & Sports Medicine; [facility], [address], First Floor, Wing C, [address], [place] [address], # [phone]. SGT: BRANDON Saturday Clinic as needed; 0 [facility] First Floor, Wing D [address] [address], #[phone]. Questions or Concerns and Appointments If there are questions or concerns after discharge from the hospital, please call [phone] and ask for Blue Surgery Nurse. Working hours are Saturday - Saturday 8:00 AM to 4:00 PM. After hours, weekends and holidays please call [phone] and ask for the resident line installation supervisor for Blue Surgery. For appointments please call [phone]. Medication requests should be made between the hours of 9:00 AM to 3:00 PM Saturday thru Saturday. Please note that based upon recent changes to [place] law related to prescribing opioid pain medications, our providers will not provide refills on controlled medications after your hospital discharge following a major surgery or trauma. [place], [place] 201 KAR9:260. * Progress Notes - Kandace Briseno Clyde - 08/24/2025 2:00 PM EDT Case Management Adult Initial Progress Note Madyson Machado 65 y.o. female CSN: [id number] Admission: 08/23/2025 9:41 PM Primary Problem: Fall from standing, initial encounter Jewelry Sorter reviewed chart to complete this Initial Case Management Assessment. PCP: Brad Hassan MD Emergency Contact: Extended Emergency Contact Information Primary Emergency Contact: SelwynKarolyn Mobile Relation: Sister Preferred language: Bengali Speed Runner needed? No Secondary Emergency Contact: LATOSHA BANERJEE Mobile Relation: Daughter Speed Runner needed? No Insurance: Primary Visit Coverage Payer Plan Sponsor Code Group Number Group Name HUMANA MEDICARE HUMANA MEDICARE Primary Visit Coverage Subscriber Subscriber ID Subscriber Name Subscriber N Subscriber Address [id number] Madyson Machado [id number] [place] [address] Patient information: Primary Caregiver: Self Support System: Immediate family Daily Living Activities: Functional Status: Minimum assistance Living Arrangements: Alone Type of Residence: Private residence [address] [place] [address] Current DME: Equipment Currently Used at Home: [...] Outpatient Dialysis Services: Living Will/Advance Directive/Power of Showroom Salesperson /Guardian: Social Drivers of Health Food Insecurity: [...] Cage questionnaire guilty: 0 Cage questionnaire eye structural rigger: 0 Cage Overall score: 0 Housing Stability: [...] file (09/02/2023) Utilities: Not At Risk (08/24/2025) [facility] Utilities Threatened with loss of [...] appropriate. Pt lives at home alone in [place]. Pt sister provides transportation to f/u [...] session. Participants in Care Family/Caregiver Present: No Speed Runner: Not Applicable Presentation Oxygen Therapy: None (Room [...] Level of Mobility: Ambulatory- household only Mobility Levy: Independent gait without device History of Falls: [...] Mobility Exam: Supine to Sit Level of Levy: Maximum assist (25% patient's effort) Physical/Nonphysical Assist: Verbal Cues, Nonverbal cues (demo/gestures), HOB elevated, Maximal cues, Additional assist utilized for safety Assistive Device: Other (L hand held assist) Bed Mobility Exam: Sit to Supine Level of Levy: Maximum assist (25% patient's effort) Physical/Nonphysical Assist: Verbal Cues, Nonverbal cues (demo/gestures), Maximal cues, Additional assist utilized for safety Assistive Device: Other (L hand held assist) Transfers Transfer Exam: Sit to stand Level of Levy: Moderate assist (50% patient's effort) Physical/Nonphysical Assist: Verbal Cues, Nonverbal cues (demo/gestures), Maximal cues, Additional assist utilized for safety Assistive Device: Hand held assist (L UE) Transfer Exam: Stand to Sit Level of Levy: Maximum assist (25% patient's effort) Physical/Nonphysical Assist: [...] Assessments Standardized Assessments Standardized Assessments: [facility] 6-Clicks Mobility Assessment [facility] 6-Clicks Mobility Assessment Difficulty patient has turning [...] steps with a railing?: Unable [facility] 6-Clicks Mobility Assessment Total : 10 Assessment [...] session. Participants in Care Family/Caregiver Present: No Speed Runner: Not Applicable Presentation Oxygen Therapy: None (Room [...] Level of Mobility: Ambulatory- household only Mobility Levy: Independent gait without device History of Falls: [...] Mobility Bed Mobility Exam: Scooting/Bridging Level of Levy: Maximum assist (25% patient's effort) (seated scooting to EOB) Physical/Nonphysical Assist: Verbal Cues, Minimal cues Assistive Device: Other (drawsheet) Bed Mobility Exam: Supine to Sit Level of Levy: Maximum assist (25% patient's effort) Physical/Nonphysical Assist: Verbal Cues, Nonverbal cues (demo/gestures), HOB elevated, Maximal cues, Additional assist utilized for safety Assistive Device: Other (L hand held assist) Bed Mobility Exam: Sit to Supine Level of Levy: Maximum assist (25% patient's effort) Physical/Nonphysical Assist: Verbal Cues, Nonverbal cues (demo/gestures), Maximal cues, Additional assist utilized for safety Assistive Device: Other (L DROP COUNT ASSOCIATE) Transfers Transfer Exam: Sit to stand Level of Levy: Moderate assist (50% patient's effort) Physical/Nonphysical Assist: Verbal Cues, Nonverbal cues (demo/gestures), Maximal cues, Additional assist utilized for safety Assistive Device: Hand held assist (L UE) Transfer Exam: Stand to Sit Level of Levy: Maximum assist (25% patient's effort) Physical/Nonphysical Assist: [...] with mod-max assist x 2 with LUE DROP COUNT ASSOCIATE. Maximal verbal and tactile cues provided for [...] anxiety with mobility this date. Standardized Assessments [facility] 6-Click Daily Activities Help from Other: Don/Doff Regular Lower Body Clothings: A lot Help From Other: Bathing: A lot Help From Other: Toileting: A lot Help From Other: Don/Doff Upper Body Clothings: A lot Help From Other: Grooming: Little Help From Other: Eating Meals: Little [facility] 6 Click - Daily Activities [...] past month or so. 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 Patient was subsequently brought to [facility] where she was found to have a right humeral neck fracture which was reportedly reduced at the OSH. She was then transferredto for trauma evaluation. Patient has had several episodes of dizziness over the course of the past few months with recent echocardiogram and carotid duplex is performed at [facility] earlier this month for syncope workup. [...] oz), last menstrual period 07/15/2013, SpO2 94%. Roundup Roundup Coma Scale Best Eye Response: Spontaneous Best Verbal Response: Confused Best Motor Response: Follows commands Roundup Coma Scale Score: 14 Intubated No Recent [...] reduction at OSH Ortho following, appreciate recs [facility] NW[facility] RUE Fall from standing, initial encounter [...] recent TTE and Carotid Duplex performed at [facility]. Non-Hospital Problems Pelvic mass Overview Addendum [...] x 5.7 x 11.2 cm solid/cystic areas, LA 8 - 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 Thickened endometrium PMB (postmenopausal bleeding) Disposition: Admit to SGT Jemima Garcia MD [1] No family history on file. [2] Current Facility-Administered Medications Medication Dose Route Frequency Provider Last Rate Last Admin lidocaine (Lidoderm) 5 % patch 1 patch 1 patch Apply externally Once Armidna Rose MD 1 patch at 08/24/25 0038 [...] None Disposition Admit Admitting/Attending Physician: NIKOLE MANN [[id number]] Provider Care Team: SGT FLOOR 6 [[id number]] [...] POCT glucose meter (09/01/2025 12:05 PM EDT) [facility] POCT Glucose 224(H) 74 - 99 mg/dL [...] Comment 09/01/2025 12:06 PM EDT HEALTHCARE LAB Inspector Semiconductor Wafer ID Nathalia Senior 12:06 PM EDT [facility] Device ID [id number] 09/01/2025 12:06 PM EDT [facility] Specimen Type POC Capillary 09/01/2025 12:06 PM EDT [facility] Blood Capillary blood specimen / Unknown 09/01/2025 12:05 PM EDT 09/01/2025 12:06 PM EDT Juan Otero MD LAB POINT OF CARE TEST DOCKED DEVICE UNSOLICITED RESULTS Final Result Performing Organization Address City/State/[facility] Co de Phone Number HEALTHCARE LAB [address] [place] [address] * (ABNORMAL) POCT glucose meter (09/01/2025 8:21 AM EDT) [facility] POCT Glucose 159(H) 74 - 99 mg/dL [...] 09/01/2025 8:23 AM EDT [facility] Inspector Semiconductor Wafer ID Edmund Carr 09/01/2025 8:23 AM EDT HEALTHCARE LAB Device ID [id number] 09/01/2025 8:23 AM EDT HEALTHCARE LAB Specimen Type POC Capillary 09/01/2025 8:23 AM EDT [facility]ALTH[facility]ARE LAB Blood Capillary blood specimen / Unknown 09/01/2025 8:21 AM EDT 09/01/2025 8:23 AM EDT us Juan Otero MD LAB POINT OF CARE TEST DOCKED DEVICE UNSOLICITED RESULTS Final Result Performing Organization Address City/[facility] Co de Phone Number HEALTHCARE LAB [address] [place] [address] * (ABNORMAL) POCT glucose meter (08/31/2025 8:30 PM EDT) [facility] POCT Glucose 144(H) 74 - 99 mg/dL [...] Comment 08/31/2025 8:32 PM EDT HEALTHCARE LAB Inspector Semiconductor Wafer ID Michelle Rogers 08/31/2025 8:32 PM EDT HEALTHCARE LAB Device ID [id number] 08/31/2025 8:32 PM EDT HEALTHCARE LAB Specimen Type POC Capillary 08/31/2025 8:32 PM EDT [facility]ALTH[facility]ARE LAB Blood Capillary blood specimen / Unknown 08/31/2025 8:30 PM EDT 08/31/2025 8:32 PM EDT us Izzy Griffith MD LAB POINT OF CARE TEST DOCKED DEVICE UNSOLICITED RESULTS Final Result Performing Organization Address City/[facility]/ZIP Co de Phone Number HEALTHCARE LAB [address] [place] [address] * (ABNORMAL) POCT glucose meter (08/31/2025 5:36 [...] Comment 08/31/2025 5:38 PM EDT HEALTHCARE LAB Inspector Semiconductor Wafer ID Lake Burns 08/31/2025 5:38 PM EDT HEALTHCARE LAB Device ID [id number] 08/31/2025 5:38 PM EDT HEALTHCARE LAB Specimen Type POC Capillary 08/31/2025 5:38 PM EDT HEALTHCARE LAB Blood Capillary blood specimen / Unknown 08/31/2025 5:36 PM EDT 08/31/2025 5:38 PM EDT Izzy Griffith MD LAB POINT OF CARE TEST DOCKED DEVICE UNSOLICITED RESULTS Final Result [facility] [address] [place] [address] * (ABNORMAL) POCT glucose meter (08/31/2025 12:21 PM EDT) [facility] POCT Glucose 142(H) 74 - 99 mg/dL [...] 08/31/2025 12:23 PM EDT [facility] Inspector Semiconductor Wafer ID Lake Burns 08/31/2025 12:23 PM EDT HEALTHCARE LAB Device ID [id number] 08/31/2025 12:23 PM EDT HEALTHCARE LAB Specimen Type POC Capillary 08/31/2025 12:23 PM EDT HEALTHCARE LAB Blood Capillary blood specimen / Unknown 08/31/2025 12:21 PM EDT 08/31/2025 12:23 PM EDT us Izzy Griffith MD LAB POINT OF CARE TEST DOCKED DEVICE UNSOLICITED RESULTS Final Result Performing Organization Address [facility] Co de Phone Number [facility] [address] [place] [address] * Troponin T, High Sensitivity, 2 Hour, Plasma (08/31/2025 11:58 AM EDT) Troponin T, High Sensitivity, 2 Hour 10 <14 ng/L 08/31/2025 12:32 PM EDT [facility] Blood Venous blood specimen / Unknown Venipuncture / Unknown 08/31/2025 11:58 AM EDT 08/31/2025 12:04 PM EDT [employer] PROGRAMMER LAB BLOOD ORDERABLES Final Result Performing Organization Address [facility] de Phone Number [facility] [address] [place] [address] * XR Chest 1 View (08/31/2025 10:22 [...] on 08/31/2025 11:12 AM us [employer] PROGRAMMER IMG XR PROCEDURES Final Re sult * ECG Adult (08/31/2025 9:44 AM EDT) EKG DIAGNOSIS CLASS Abnormal MUSE ECG Ventricular Rate 94 BPM MUSE ECG Atrial Rate 94 BPM MUSE ECG ND Interval 136 ms MUSE ECG QRSD Interval 84 ms MUSE ECG QT Interval 380 ms MUSE ECG QTC Interval 475 ms MUSE ECG P [place] 10 degrees MUSE ECG R [place] 13 degrees MUSE ECG T Wave [place] 144 degrees MUSE ECG Diagnosis Poor data [...] EDT 08/31/2025 2:11 PM EDT [employer] PROGRAMMER ECG ORDERABLES Final Resu lt MUSE ECG * Troponin T, High Sensitivity, 0 Hour Plasma, Reflex to 2 Hour (08/31/2025 9:43 AM EDT) Troponin T, High Sensitivity, 0 Hour 12 <14 ng/L 08/31/2025 11:45 AM EDT [facility] Blood Venous blood specimen / Unknown Venipuncture / Unknown 08/31/2025 9:43 AM EDT 08/31/2025 11:04 AM EDT Rodney Dwyer APRN LAB BLOOD ORDERABLES Final Result Performing Organization Address City/[facility]/ZIP Co de Phone Number [facility] [address] [place] [address] * (ABNORMAL) Comprehensive metabolic panel (08/31/2025 9:43 AM EDT) Glucose, Plasma 137(H) 74 - 99 mg/dL 08/31/2025 11:45 AM EDT [facility] BUN, Plasma 9 8 - 23 mg/dL 08/31/2025 11:45 AM EDT [facility] Creatinine, Plasma 0.38(L) 0.60 - 1.10 mg/dL 08/31/2025 11:45 AM EDT [facility] BUN/Creatinine Ratio 24 08/31/2025 11:45 AM EDT [facility] Sodium, Plasma 137 136 - 145 mmol/L 08/31/2025 11:45 AM EDT [facility] Potassium, Plasma 3.5(L) 3.6 - 4.9 mmol/L 08/31/2025 11:45 AM EDT [facility] Chloride, Plasma 100 97 - 107 mmol/L 08/31/2025 11:45 AM EDT [facility] CO2, Plasma 20(L) 22 - 29 mmol/L 08/31/2025 11:45 AM EDT [facility] Anion Gap 17(H) 6 - 16 mmol/L 08/31/2025 11:45 AM EDT [facility] Total Calcium, Plasma 8.9 8.9 - 10.2 mg/dL 08/31/2025 11:45 AM EDT [facility] Total Protein 6.7 6.3 - 7.9 g/dL 08/31/2025 11:45 AM EDT [facility] Albumin, Plasma 3.4(L) 3.5 - 5.2 g/dL 08/31/2025 11:45 AM EDT [facility] AST, Plasma 18 10 - 35 U/L 08/31/2025 11:45 AM EDT [facility] Comment:Hemolyzed, result ma y be falsely increased. ALT, Plasma 20 10 - 35 U/L 08/31/2025 11:45 AM EDT [facility] Alkaline Phosphatase, Plasma 60 46 - 142 U/L 08/31/2025 11:45 AM EDT [facility] Total Bilirubin, Plasma 0.7 0.2 - 1.1 mg/dL 08/31/2025 11:45 AM EDT [facility] eGFRcr 110.7 mL/min/1.7 3m*2 08/31/2025 11:45 AM EDT [facility] Comment:Reported eGFRcr in m L/min/1.73m2 is based the CKD-EPI 2020 equation that does not use a race coefficient. Blood Venous blood specimen / Unknown Venipuncture / Unknown 08/31/2025 9:43 AM EDT 08/31/2025 11:04 AM EDT us [employer] PROGRAMMER LAB BLOOD ORDERABLES Final Result [facility] [address] [place] [address] * (ABNORMAL) CBC and differential (08/31/2025 9:43 AM EDT) WBC Count 8.37 3.70 - 10.30 10*3/uL LAB HEMATOLOGY METHOD 08/31/2025 11:27 AM EDT [facility] RBC Count 3.52(L) 3.90 - 5.20 10*6/uL LAB HEMATOLOGY METHOD 08/31/2025 11:27 AM EDT [facility] HGB 10.9(L) 11.2 - 15.7 g/dL LAB HEMATOLOGY METHOD 08/31/2025 11:27 AM EDT [facility] HCT 33.0(L) 34.0 - 45.0 % LAB HEMATOLOGY METHOD 08/31/2025 11:27 AM EDT [facility] Platelet Count 393(H) 155 - 369 10*3/uL LAB HEMATOLOGY METHOD 08/31/2025 11:27 AM EDT [facility] MCV 94 79 - 98 fL LAB HEMATOLOGY METHOD 08/31/2025 11:27 AM EDT [facility] MCH 31.0 26.0 - 32.0 pg LAB HEMATOLOGY METHOD 08/31/2025 11:27 AM EDT [facility] MCHC 33.0 30.7 - 35.5 g/dL LAB HEMATOLOGY METHOD 08/31/2025 11:27 AM EDT [facility] RDW 12.4 11.5 - 14.5 % LAB HEMATOLOGY METHOD 08/31/2025 11:27 AM EDT [facility] MPV 9.1 8.8 - 12.5 fL LAB HEMATOLOGY METHOD 08/31/2025 11:27 AM EDT [facility] nRBC 0.0 <=0.0 per 100 WBCs LAB HEMATOLOGY METHOD 08/31/2025 11:27 AM EDT [facility] Differential Type Automated LAB HEMATOLOGY METHOD 08/31/2025 11:27 AM EDT [facility] Neutrophils % 68 % LAB HEMATOLOGY METHOD 08/31/2025 11:27 AM EDT [facility] Lymphocytes % 19 % LAB HEMATOLOGY METHOD 08/31/2025 11:27 AM EDT [facility] Monocytes % 11 % LAB HEMATOLOGY METHOD 08/31/2025 11:27 AM EDT [facility] Eosinophils % 1 % LAB HEMATOLOGY METHOD 08/31/2025 11:27 AM EDT [facility] Basophils % 0 % LAB HEMATOLOGY METHOD 08/31/2025 11:27 AM EDT [facility] Immature Granulocytes % 1 % LAB HEMATOLOGY METHOD 08/31/2025 11:27 AM EDT [facility] Neutrophils Absolute 5.77 1.60 - 6.10 10*3/uL LAB HEMATOLOGY METHOD 08/31/2025 11:27 AM EDT [facility] Lymphocytes Absolute 1.56 1.20 - 3.90 10*3/uL LAB HEMATOLOGY METHOD 08/31/2025 11:27 AM EDT [facility] Monocytes Absolute 0.89 0.30 - 0.90 10*3/uL LAB HEMATOLOGY METHOD 08/31/2025 11:27 AM EDT [facility] Eosinophils Absolute 0.08 0.00 - 0.50 10*3/uL LAB HEMATOLOGY METHOD 08/31/2025 11:27 AM EDT [facility] Basophils Absolute 0.02 0.00 - 0.10 10*3/uL LAB HEMATOLOGY METHOD 08/31/2025 11:27 AM EDT [facility] Immature Granulocytes Absolute 0.05 0.00 - 0.06 10*3/uL LAB HEMATOLOGY METHOD 08/31/2025 11:27 AM EDT [facility] Blood Venous blood specimen / Unknown Venipuncture / Unknown 08/31/2025 9:43 AM EDT 08/31/2025 11:17 AM EDT Narrative [facility] - 08/31/2025 11:27 AM EDT Therapeutic decision making should be based on absolute values, rather than percentages. Rodney Dwyer APRN LAB BLOOD ORDERABLES Final Result [facility] [address] [place] [address] * (ABNORMAL) POCT glucose meter (08/31/2025 8:54 AM EDT) [facility] POCT Glucose 154(H) 74 - 99 mg/dL [...] 08/31/2025 8:56 AM EDT [facility] Inspector Semiconductor Wafer ID Lake Burns 08/31/2025 8:56 AM EDT HEALTHCARE LAB Device ID [id number] 08/31/2025 8:56 AM EDT HEALTHCARE LAB Specimen Type POC Capillary 08/31/2025 8:56 AM EDT HEALTHCARE LAB Blood Capillary blood specimen / Unknown 08/31/2025 8:54 AM EDT 08/31/2025 8:56 AM EDT Izzy Griffith MD LAB POINT OF CARE TEST DOCKED DEVICE UNSOLICITED RESULTS Final Result Performing Organization Address City/[facility] Co de Phone Number [facility] [address] [place] [address] * (ABNORMAL) POCT glucose meter (08/30/2025 8:16 [...] Comment 08/30/2025 8:18 PM EDT HEALTHCARE LAB Inspector Semiconductor Wafer ID Yusef Branch 08/30/2025 8:18 PM EDT HEALTHCARE LAB Device ID [id number] 08/30/2025 8:18 PM EDT HEALTHCARE LAB Specimen Type POC Capillary 08/30/2025 8:18 PM EDT HEALTHCARE LAB Blood Capillary blood specimen / Unknown 08/30/2025 8:16 PM EDT 08/30/2025 8:18 PM EDT us Izzy Griffith MD LAB POINT OF CARE TEST DOCKED DEVICE UNSOLICITED RESULTS Final Result Performing Organization Address City/[facility]/ZIP Co de Phone Number HEALTHCARE LAB [address] [place] [address] * (ABNORMAL) POCT glucose meter (08/30/2025 4:49 [...] 08/30/2025 4:51 PM EDT [facility] Inspector [employer]ductor Wafer ID Nathalia Senior 4:51 PM EDT HEALTHCARE LAB Device ID [id number] 08/30/2025 4:51 PM EDT HEALTHCARE LAB Specimen Type POC Capillary 08/30/2025 4:51 PM EDT HEALTHCARE LAB Blood Capillary blood specimen / Unknown 08/30/2025 4:49 PM EDT 08/30/2025 4:51 PM EDT Izzy Griffith MD LAB POINT OF CARE TEST DOCKED DEVICE UNSOLICITED RESULTS Final Result [facility] [address] [place] [address] * (ABNORMAL) POCT glucose meter (08/30/2025 12:24 PM EDT) [facility] POCT Glucose 177(H) 74 - 99 mg/dL [...] 08/30/2025 12:25 PM EDT [facility] Inspector [employer]ductor Wafer ID Edmund Carr 08/30/2025 12:25 PM EDT HEALTHCARE LAB Device ID [id number] 08/30/2025 12:25 PM EDT HEALTHCARE LAB Specimen Type POC Capillary 08/30/2025 12:25 PM EDT HEALTHCARE LAB Blood Capillary blood specimen / Unknown 08/30/2025 12:24 PM EDT 08/30/2025 12:25 PM EDT Izzy Griffith MD LAB POINT OF CARE TEST DOCKED DEVICE UNSOLICITED RESULTS Final Result Performing Organization Address [facility] de Phone Number HEALTHCARE LAB [address] [place] [address] * (ABNORMAL) POCT glucose meter (08/30/2025 7:38 AM EDT) Pathologist [facility] POCT Glucose 159(H) 74 - 99 [...] Comment 08/30/2025 7:39 AM EDT HEALTHCARE LAB Inspector [employer]iconductor Wafer ID Nathalia Senior 7:39 AM EDT HEALTHCARE LAB Device ID [id number] 08/30/2025 7:39 AM EDT [facility] Specimen Type POC Capillary 08/30/2025 7:39 AM EDT [facility] Blood Capillary blood specimen / Unknown 08/30/2025 7:38 AM EDT 08/30/2025 7:39 AM EDT Ester iVvas MD LAB POINT OF CARE TEST DOCKED DEVICE UNSOLICITED RESULTS Final Result Performing Organization Address City/[facility] Co de Phone Number [facility] [address] [place] [address] * (ABNORMAL) POCT glucose meter (08/29/2025 7:42 PM EDT) Pathologist [facility] POCT Glucose 158(H) 74 - 99 mg/dL [...] 08/29/2025 7:44 PM EDT [facility] [employer] Wafer ID Yusef Branch 08/29/2025 7:44 PM EDT [facility] Device ID [id number] 08/29/2025 7:44 PM EDT [facility] Specimen Type POC Capillary 08/29/2025 7:44 PM EDT [facility] Blood Capillary blood specimen / Unknown 08/29/2025 7:42 PM EDT 08/29/2025 7:44 PM EDT us Ester Vivas MD LAB POINT OF CARE TEST DOCKED DEVICE UNSOLICITED RESULTS Final Result Performing Organization Address City/[facility] Co de Phone Number [facility]ALTHCARE LAB [address] [place] [address] * (ABNORMAL) POCT glucose meter (08/29/2025 5:26 PM EDT) [facility] POCT Glucose 180(H) 74 - 99 mg/dL [...] Comment 08/29/2025 5:28 PM EDT [facility]ALTHCARE LAB Inspector [employer] Wafer ID Edmund Carr 08/29/2025 5:28 PM EDT HEALTHCARE LAB Device ID [id number] 08/29/2025 5:28 PM EDT [facility]ALTHCARE LAB Specimen Type POC Capillary 08/29/2025 5:28 PM EDT [facility]ALTH[facility] LAB Blood Capillary blood specimen / Unknown 08/29/2025 5:26 PM EDT 08/29/2025 5:28 PM EDT us Ester Vivas MD LAB POINT OF CARE TEST DOCKED DEVICE UNSOLICITED RESULTS Final Result [facility] [address] [place] [address] * (ABNORMAL) POCT glucose meter (08/29/2025 12:38 PM EDT) [facility] POCT Glucose 168(H) 74 - 99 mg/dL [...] 08/29/2025 12:40 PM EDT [facility] Inspector [employer] Wafer ID Bruno Edmund 08/29/2025 12:40 PM EDT [facility] Device ID [id number] 08/29/2025 12:40 PM EDT [facility] Specimen Type POC Capillary 08/29/2025 12:40 PM EDT [facility] Blood Capillary blood specimen / Unknown 08/29/2025 12:38 PM EDT 08/29/2025 12:40 PM EDT Ester Vivas MD LAB POINT OF CARE TEST DOCKED DEVICE UNSOLICITED RESULTS Final Result Performing Organization Address [facility] Co de Phone Number [facility] [address] [place] [address] * (ABNORMAL) POCT glucose meter (08/29/2025 8:49 AM EDT) [facility] POCT Glucose 140(H) 74 - 99 mg/dL [...] 08/29/2025 8:50 AM EDT [facility] Inspector [employer] Wafer ID Bruno Edmund 08/29/2025 8:50 AM EDT [facility] Device ID [id number] 08/29/2025 8:50 AM EDT [facility]ALTHCARE LAB Specimen Type POC Capillary 08/29/2025 8:50 AM EDT [facility]ALTHCARE LAB Blood Capillary blood specimen / Unknown 08/29/2025 8:49 AM EDT 08/29/2025 8:50 AM EDT Ester Vivas MD LAB POINT OF CARE TEST DOCKED DEVICE UNSOLICITED RESULTS Final Result Performing Organization Address [facility] de Phone Number HEALTHCARE LAB [address] [place] [address] * (ABNORMAL) POCT glucose meter (08/28/2025 8:43 [...] Comment 08/28/2025 8:48 PM EDT HEALTHCARE LAB Inspector [employer] Wafer ID Talon Mcmullen 08/28/2025 8:48 PM EDT HEALTHCARE LAB Device ID [id number] 08/28/2025 8:48 PM EDT HEALTHCARE LAB Specimen Type POC Capillary 08/28/2025 8:48 PM EDT [facility]ALTHCARE LAB Blood Capillary blood specimen / Unknown 08/28/2025 8:43 PM EDT 08/28/2025 8:48 PM EDT Ester Vivas MD LAB POINT OF CARE TEST DOCKED DEVICE UNSOLICITED RESULTS Final Result Performing Organization Address City/[facility] Co de Phone Number [facility]ARE [facility] [address] [place] [address] * (ABNORMAL) POCT glucose meter (08/28/2025 5:15 [...] 08/28/2025 5:17 PM EDT [facility] Inspector [employer] Wafer ID Vivian Keller 08/28/2025 5:17 PM EDT HEALTHCARE LAB Device ID [id number] 08/28/2025 5:17 PM EDT HEALTHCARE LAB Specimen Type POC Capillary 08/28/2025 5:17 PM EDT [facility]ALTHCARE LAB Blood Capillary blood specimen / Unknown 08/28/2025 5:15 PM EDT 08/28/2025 5:17 PM EDT Ester Vivas MD LAB POINT OF CARE TEST DOCKED DEVICE UNSOLICITED RESULTS Final Result [facility] [address] [place] [address] * (ABNORMAL) POCT glucose meter (08/28/2025 1:05 PM EDT) [facility] POCT Glucose 207(H) 74 - 99 mg/dL [...] 08/28/2025 1:06 PM EDT [facility] Inspector [employer] Wafer ID Kathy Taylor 1:06 PM EDT [facility] Device ID [id number] 08/28/2025 1:06 PM EDT HEALTHCARE LAB Specimen Type POC Capillary 08/28/2025 1:06 PM EDT HEALTHCARE LAB Blood Capillary blood specimen / Unknown 08/28/2025 1:05 PM EDT 08/28/2025 1:06 PM EDT Ester Viavs MD LAB POINT OF CARE TEST DOCKED DEVICE UNSOLICITED RESULTS Final Result Performing Organization Address [facility] de Phone Number [facility] [address] [place] [address] * (ABNORMAL) POCT glucose meter (08/28/2025 9:18 [...] Comment 08/28/2025 9:20 AM EDT HEALTHCARE LAB Inspector [employer] Wafer ID Kathy Taylor 9:20 AM EDT HEALTHCARE LAB Device ID [id number] 08/28/2025 9:20 AM EDT [facility] Specimen Type POC Capillary 08/28/2025 9:20 AM EDT [facility] Blood Capillary blood specimen / Unknown 08/28/2025 9:18 AM EDT 08/28/2025 9:20 AM EDT Ester Vivas MD LAB POINT OF CARE TEST DOCKED DEVICE UNSOLICITED RESULTS Final Result Performing Organization Address City/[facility] Co de Phone Number [facility] [address] [place] [address] * (ABNORMAL) POCT glucose meter (08/28/2025 6:26 [...] Comment 08/28/2025 6:28 AM EDT HEALTHCARE LAB Inspector [employer] Wafer ID Uri Mustafa 6:28 AM EDT HEALTHCARE LAB Device ID [id number] 08/28/2025 6:28 AM EDT HEALTHCARE LAB Specimen Type POC Capillary 08/28/2025 6:28 AM EDT [facility]ALTHCARE LAB Blood Capillary blood specimen / Unknown 08/28/2025 6:26 AM EDT 08/28/2025 6:28 AM EDT Juan Otero MD LAB POINT OF CARE TEST DOCKED DEVICE UNSOLICITED RESULTS Final Result Performing Organization Address [facility] Co de Phone Number HEALTHCARE LAB [address] [place] [address] * (ABNORMAL) POCT glucose meter (08/27/2025 9:06 [...] Comment 08/27/2025 9:09 PM EDT HEALTHCARE LAB Inspector [employer] Wafer ID Uri Mustafa 9:09 PM EDT HEALTHCARE LAB Device ID [id number] 08/27/2025 9:09 PM EDT HEALTHCARE LAB Specimen Type POC Capillary 08/27/2025 9:09 PM EDT HEALTHCARE LAB Blood Capillary blood specimen / Unknown 08/27/2025 9:06 PM EDT 08/27/2025 9:09 PM EDT Juan Otero MD LAB POINT OF CARE TEST DOCKED DEVICE UNSOLICITED RESULTS Final Result Performing Organization Address City/[facility] Co de Phone Number [facility]CARE LAB [address] [place] [address] * (ABNORMAL) POCT glucose meter (08/27/2025 5:11 PM EDT) [facility] POCT Glucose 126(H) 74 - 99 mg/dL [...] Comment 08/27/2025 5:13 PM EDT HEALTHCARE LAB Inspector [employer] Wafer ID Vivian Keller 08/27/2025 5:13 PM EDT HEALTHCARE LAB Device ID [id number] 08/27/2025 5:13 PM EDT [facility] Specimen Type POC Capillary 08/27/2025 5:13 PM EDT HEALTHCARE LAB Blood Capillary blood specimen / Unknown 08/27/2025 5:11 PM EDT 08/27/2025 5:13 PM EDT Juan Otero MD LAB POINT OF CARE TEST DOCKED DEVICE UNSOLICITED RESULTS Final Result Performing Organization Address City/State/[facility] Co de Phone Number [facility] [address] [place] [address] * (ABNORMAL) POCT glucose meter (08/27/2025 12:25 PM EDT) [facility] POCT Glucose 222(H) 74 - 99 mg/dL [...] 08/27/2025 12:26 PM EDT [facility] Inspector [employer] Wafer ID Vivian Keller 08/27/2025 12:26 PM EDT [facility] Device ID [id number] 08/27/2025 12:26 PM EDT [facility] Specimen Type POC Capillary 08/27/2025 12:26 PM EDT HEALTHCARE LAB Blood Capillary blood specimen / Unknown 08/27/2025 12:25 PM EDT 08/27/2025 12:26 PM EDT Juan Otero MD LAB POINT OF CARE TEST DOCKED DEVICE UNSOLICITED RESULTS Final Result Performing Organization Address City/[facility]/ZIP Co de Phone Number [facility] [address] [place] [address] * (ABNORMAL) POCT glucose meter (08/27/2025 8:39 [...] Comment 08/27/2025 8:50 AM EDT HEALTHCARE LAB Inspector [employer] Wafer ID Erma Montero 025 8:50 AM EDT HEALTHCARE LAB Device ID [id number] 08/27/2025 8:50 AM EDT HEALTHCARE LAB Specimen Type POC Capillary 08/27/2025 8:50 AM EDT HEALTHCARE LAB Blood Capillary blood specimen / Unknown 08/27/2025 8:39 AM EDT 08/27/2025 8:50 AM EDT us Juan Otero MD LAB POINT OF CARE TEST DOCKED DEVICE UNSOLICITED RESULTS Final Result [facility] [address] [place] [address] * XR Shoulder Right 1 View (08/27/2025 [...] - 99 mg/dL 08/26/2025 7:43 PM EDT [employer] [facility] Comment:Accuracy of a glucos e result [...] 08/26/2025 7:43 PM EDT [facility] Inspector [employer]icon[employer] Wafer ID Tonya Lane 08/26/20 7:43 PM EDT [facility] Device ID [id number] 08/26/2025 7:43 PM EDT [facility] Specimen Type POC Capillary 08/26/2025 7:43 PM EDT HEALTHCARE LAB Blood Capillary blood specimen / Unknown 08/26/2025 7:42 PM EDT 08/26/2025 7:43 PM EDT Juan Otero MD LAB POINT OF CARE TEST DOCKED DEVICE UNSOLICITED RESULTS Final Result Performing Organization Address City/State/[facility] Co de Phone Number [facility] [address] [place] [address] * (ABNORMAL) POCT glucose meter (08/26/2025 5:04 PM EDT) [facility] POCT Glucose 138(H) 74 - 99 mg/dL [...] 08/26/2025 5:07 PM EDT [facility] Inspector [employer] Wafer ID Dory Albert 5:07 PM EDT HEALTHCARE LAB Device ID [id number] 08/26/2025 5:07 PM EDT HEALTHCARE LAB Specimen Type POC Capillary 08/26/2025 5:07 PM EDT HEALTHCARE LAB Blood Capillary blood specimen / Unknown 08/26/2025 5:04 PM EDT 08/26/2025 5:07 PM EDT us Juan Otero MD LAB POINT OF CARE TEST DOCKED DEVICE UNSOLICITED RESULTS Final Result [facility] [address] [place] [address] * (ABNORMAL) Urinalysis with reflex microscopic (Culture NOT Included) (08/26/2025 3:24 PM EDT) Color, Urine Yellow LAB URINALYSIS - AUTOMATED METHOD 08/26/2025 3:54 PM EDT [facility] Clarity, Urine Clear LAB URINALYSIS - AUTOMATED METHOD 08/26/2025 3:54 PM EDT [facility] Spec [place], Urine >1.030(H) 1.005 - 1.030 LAB URINALYSIS - AUTOMATED METHOD 08/26/2025 3:54 PM EDT [facility] pH, Urine 6.5 5.0 - 8.0 LAB URINALYSIS - AUTOMATED METHOD 08/26/2025 3:54 PM EDT [facility] Protein, Urine 30(A) Negative mg/dL LAB URINALYSIS - AUTOMATED METHOD 08/26/2025 3:54 PM EDT [facility] Glucose, Urine >=1000(A) Negative mg/dL LAB URINALYSIS - AUTOMATED METHOD 08/26/2025 3:54 PM EDT [facility] Ketones, Urine 40(A) Negative mg/dL LAB URINALYSIS - AUTOMATED METHOD 08/26/2025 3:54 PM EDT [facility] Blood, Urine Negative Negative LAB URINALYSIS - AUTOMATED METHOD 08/26/2025 3:54 PM EDT [facility] Bilirubin, Urine Negative Negative LAB URINALYSIS - AUTOMATED METHOD 08/26/2025 3:54 PM EDT [facility] Urobilinogen, Urine 0.2 0.2 to 1.0 mg/dL LAB URINALYSIS - AUTOMATED METHOD 08/26/2025 3:54 PM EDT [facility] Leukocytes, Urine Negative Negative LAB URINALYSIS - AUTOMATED METHOD 08/26/2025 3:54 PM EDT [facility] Nitrite, Urine Negative Negative LAB URINALYSIS - AUTOMATED METHOD 08/26/2025 3:54 PM EDT [facility] Urine Urine specimen obtained by clean catch procedure / Unknown Non-blood Collection / Unknown 08/26/2025 3:24 PM EDT 08/26/2025 3:44 PM EDT us Jaida RIBEIRO LAB URINE ORDERABLES Ivone ivy Result [facility] [address] [place] [address] * ECHO, ADULT TRANSTHORACIC COMPLETE W/ CONTRAST [...] is no recent study available for direct [id number] comparison. Left Ventricle Based on the 2D [...] is no recent study available for direct [id number]-[id number] comparison. us Nikole Mann MD CV ECHO PROCEDURES Final Result * (ABNORMAL) POCT glucose meter (08/26/2025 12:40 PM EDT) POCT Glucose 221(H) 74 - 99 mg/dL 08/26/2025 12:42 PM EDT [employer] [facility] Comment:Accuracy of a glucos e result [...] testing. Comment 08/26/2025 12:42 PM EDT [facility] [employer] [facility] Inspector [employer] Wafer ID Tiffanie Suarez 025 12:42 PM EDT [facility] Device ID [id number] 08/26/2025 12:42 PM EDT HEALTHCARE LAB Specimen Type POC Capillary 08/26/2025 12:42 PM EDT HEALTHCARE LAB Blood Capillary blood specimen / Unknown 08/26/2025 12:40 PM EDT 08/26/2025 12:42 PM EDT us Juan Otero MD LAB POINT OF CARE TEST DOCKED DEVICE UNSOLICITED RESULTS Final Result Performing Organization Address City/[facility] Co de Phone Number [facility] [address] [place] [address] * (ABNORMAL) POCT glucose meter (08/26/2025 8:15 AM EDT) [facility] POCT Glucose 167(H) 74 - 99 mg/dL [...] Comment 08/26/2025 8:17 AM EDT HEALTHCARE LAB Inspector [employer] Wafer ID Tiffanie Suarez 025 8:17 AM EDT HEALTHCARE LAB Device ID [id number] 08/26/2025 8:17 AM EDT HEALTHCARE LAB Specimen Type POC Capillary 08/26/2025 8:17 AM EDT HEALTHCARE LAB Blood Capillary blood specimen / Unknown 08/26/2025 8:15 AM EDT 08/26/2025 8:17 AM EDT us Juan Otero MD LAB POINT OF CARE TEST DOCKED DEVICE UNSOLICITED RESULTS Final Result Performing Organization Address City/[facility] Co de Phone Number HEALTHCARE LAB [address] [place] [address] * (ABNORMAL) POCT glucose meter (08/26/2025 4:27 [...] 08/26/2025 4:28 AM EDT [facility] Inspector [employer]icon[employer] Wafer ID Tonya Lane 08/26/20 4:28 AM EDT HEALTHCARE LAB Device ID [id number] 08/26/2025 4:28 AM EDT HEALTHCARE LAB Specimen Type POC Capillary 08/26/2025 4:28 AM EDT HEALTHCARE LAB Blood Capillary blood specimen / Unknown 08/26/2025 4:27 AM EDT 08/26/2025 4:28 AM EDT Juan Otero MD LAB POINT OF CARE TEST DOCKED DEVICE UNSOLICITED RESULTS Final Result [facility] [address] [place] [address] * (ABNORMAL) POCT glucose meter (08/25/2025 8:36 PM EDT) [facility] POCT Glucose 255(H) 74 - 99 mg/dL [...] 08/25/2025 8:38 PM EDT [facility] Inspector [employer] Wafer ID Tonya Lane 08/25/20 8:38 PM EDT [facility] Device ID [id number] 08/25/2025 8:38 PM EDT HEALTHCARE LAB Specimen Type POC Capillary 08/25/2025 8:38 PM EDT HEALTHCARE LAB Blood Capillary blood specimen / Unknown 08/25/2025 8:36 PM EDT 08/25/2025 8:38 PM EDT Juan Otero MD LAB POINT OF CARE TEST DOCKED DEVICE UNSOLICITED RESULTS Final Result Performing Organization Address [facility] de Phone Number HEALTHCARE LAB [address] [place] [address] * (ABNORMAL) POCT glucose meter (08/25/2025 4:51 PM EDT) Pathologist [facility] POCT Glucose 145(H) 74 - 99 mg/dL [...] Comment 08/25/2025 4:52 PM EDT HEALTHCARE LAB Inspector [employer] Wafer ID Tiffanie Suarez 025 4:52 PM EDT HEALTHCARE LAB Device ID [id number] 08/25/2025 4:52 PM EDT [facility] Specimen Type POC Capillary 08/25/2025 4:52 PM EDT [facility] Blood Capillary blood specimen / Unknown 08/25/2025 4:51 PM EDT 08/25/2025 4:52 PM EDT Juan Otero MD LAB POINT OF CARE TEST DOCKED DEVICE UNSOLICITED RESULTS Final Result Performing Organization Address City/[facility] Co de Phone Number HEALTHCARE LAB [address] [place] [address] * (ABNORMAL) POCT glucose meter (08/25/2025 12:38 PM EDT) Pathologist [facility] POCT Glucose 113(H) 74 - 99 mg/dL [...] Comment 08/25/2025 12:40 PM EDT HEALTHCARE LAB Inspector [employer] Wafer ID Tiffanie Suarez 025 12:40 PM EDT HEALTHCARE LAB Device ID [id number] 08/25/2025 12:40 PM EDT HEALTHCARE LAB Specimen Type POC Capillary 08/25/2025 12:40 PM EDT HEALTHCARE LAB Blood Capillary blood specimen / Unknown 08/25/2025 12:38 PM EDT 08/25/2025 12:40 PM EDT us Juan Otero MD LAB POINT OF CARE TEST DOCKED DEVICE UNSOLICITED RESULTS Final Result Performing Organization Address City/[facility]/ZIP Co de Phone Number HEALTHCARE LAB [address] [place] [id number] * (ABNORMAL) POCT glucose meter (08/25/2025 8:13 AM EDT) [facility] Signature POCT Glucose 239(H) 74 - [...] Comment 08/25/2025 8:15 AM EDT HEALTHCARE LAB Inspector [employer] Wafer ID Tiffanie Suarez 025 8:15 AM EDT HEALTHCARE LAB Device ID [id number] 08/25/2025 8:15 AM EDT HEALTHCARE LAB Specimen Type POC Capillary 08/25/2025 8:15 AM EDT HEALTHCARE LAB Blood Capillary blood specimen / Unknown 08/25/2025 8:13 AM EDT 08/25/2025 8:15 AM EDT us Juan Otero MD LAB POINT OF CARE TEST DOCKED DEVICE UNSOLICITED RESULTS Final Result [facility] [address] [place] [address] * (ABNORMAL) POCT glucose meter (08/24/2025 8:36 PM EDT) [facility] POCT Glucose 134(H) 74 - 99 mg/dL [...] Comment 08/24/2025 8:38 PM EDT HEALTHCARE LAB Inspector [employer] Wafer ID Farooq Ruiz 025 8:38 PM EDT [facility] Device ID [id number] 08/24/2025 8:38 PM EDT [facility] Specimen Type POC Capillary 08/24/2025 8:38 PM EDT HEALTHCARE LAB Blood Capillary blood specimen / Unknown 08/24/2025 8:36 PM EDT 08/24/2025 8:38 PM EDT Nikole Mann MD LAB POINT OF CARE TE ST DOCKED DEVICE UNSOLICITED RESULTS Final Result Performing Organization Address City/[facility]/ZIP Co de Phone Number [facility] [address] [place] [address] * (ABNORMAL) POCT glucose meter (08/24/2025 4:54 PM EDT) [facility] POCT Glucose 157(H) 74 - 99 mg/dL [...] 08/24/2025 4:56 PM EDT [facility] Inspector [employer] Wafer ID Ramona Bennett 08/24/2025 4:56 PM EDT [facility] Device ID [id number] 08/24/2025 4:56 PM EDT [facility] Specimen Type POC Capillary 08/24/2025 4:56 PM EDT [facility] Blood Capillary blood specimen / Unknown 08/24/2025 4:54 PM EDT 08/24/2025 4:56 PM EDT Nikole Mann MD LAB POINT OF CARE TE ST DOCKED DEVICE UNSOLICITED RESULTS Final Result [facility] [address] [place] [address] * VAS US Carotid Duplex Bilateral (08/24/2025 [...] Comment 08/24/2025 12:15 PM EDT HEALTHCARE LAB Inspector [employer] Wafer ID Ramona Bennett 08/24/2025 12:15 PM EDT HEALTHCARE LAB Device ID [id number] 08/24/2025 12:15 PM EDT HEALTHCARE LAB Specimen Type POC Capillary 08/24/2025 12:15 PM EDT [facility] Blood Capillary blood specimen / Unknown 08/24/2025 12:10 PM EDT 08/24/2025 12:15 PM EDT Nikole Mann MD LAB POINT OF CARE TE ST DOCKED DEVICE UNSOLICITED RESULTS Final Result [facility]ARE [facility] [address] [place] [address] * (ABNORMAL) Hemoglobin A1c (08/24/2025 3:59 AM EDT) Hemoglobin A1c 6.0(H) <5.7 % 08/24/2025 5:13 PM EDT [facility] Blood Venous blood specimen / Unknown Venipuncture / Unknown 08/24/2025 3:59 AM EDT 08/24/2025 4:14 AM EDT Narrative [facility] - 08/24/2025 5:13 PM EDT HA1C Interpretive Data: Diagnosis of Diabetes: Diabetic > or = 6.5% Pre-diabetic 5.7 to 6.4% Non-diabetic < or = 5.6% Glycemic Targets for Type I and Type II Diabetics: Non- Adults <7.0% Adults <6.0% Children and Adolescents <7.5% Source: [employer]. Standards of medical care in diabetes,2017. Diabetes Care.2017:40 (suppl 1):S1-S135. us Brigid RIBEIRO LAB BLOOD ORDERABLES Final Result Performing Organization Address City/[facility]/ZIP Co de Phone Number [facility] [address] [place] [address] * Phosphorus (08/24/2025 3:59 AM EDT) Phosphorus, Plasma 4.1 2.5 - 4.5 mg/dL 08/24/2025 5:01 AM EDT [facility] Blood Venous blood specimen / Unknown Venipuncture / Unknown 08/24/2025 3:59 AM EDT 08/24/2025 4:22 AM EDT Kwesi Yang MD LAB BLOOD ORDERABLES Final R esult Performing Organization Address [facility] Co de Phone Number [facility] [address] [place] [address] * Magnesium, Plasma (08/24/2025 3:59 AM EDT) Magnesium, Plasma 2.2 1.9 - 2.4 mg/dL 08/24/2025 5:01 AM EDT [facility] Blood Venous blood specimen / Unknown Venipuncture / Unknown 08/24/2025 3:59 AM EDT 08/24/2025 4:22 AM EDT Kwesi Yang MD LAB BLOOD ORDERABLES Final R esult Performing Organization Address City/[facility] Co de Phone Number [facility] [address] [place] [address] * (ABNORMAL) Basic metabolic panel (08/24/2025 3:59 AM EDT) Glucose, Plasma 167(H) 74 - 99 mg/dL 08/24/2025 5:01 AM EDT [facility] BUN, Plasma 29(H) 8 - 23 mg/dL 08/24/2025 5:01 AM EDT [facility] Creatinine, Plasma 0.86 0.60 - 1.10 mg/dL 08/24/2025 5:01 AM EDT [facility] BUN/Creatinine Ratio 34 08/24/2025 5:01 AM EDT [facility] Sodium, Plasma 141 136 - 145 mmol/L 08/24/2025 5:01 AM EDT [facility] Potassium, Plasma 4.2 3.6 - 4.9 mmol/L 08/24/2025 5:01 AM EDT [facility] Chloride, Plasma 107 97 - 107 mmol/L 08/24/2025 5:01 AM EDT [facility] CO2, Plasma 19(L) 22 - 29 mmol/L 08/24/2025 5:01 AM EDT [facility] Anion Gap 15 6 - 16 mmol/L 08/24/2025 5:01 AM EDT [facility] Total Calcium, Plasma 9.0 8.9 - 10.2 mg/dL 08/24/2025 5:01 AM EDT [facility] eGFRcr 74.6 mL/min/1.7 3m*2 08/24/2025 5:01 AM EDT [facility] Comment:Reported eGFRcr in m L/min/1.73m2 is based the CKD-EPI 2020 equation that does not use a race coefficient. Blood Venous blood specimen / Unknown Venipuncture / Unknown 08/24/2025 3:59 AM EDT 08/24/2025 4:22 AM EDT us Kwesi Yang MD LAB BLOOD ORDERABLES Final R esult [facility] [address] [place] [address] * (ABNORMAL) CBC W/O Differential (08/24/2025 3:59 AM EDT) WBC Count 13.28(H) 3.70 - 10.30 10*3/uL LAB HEMATOLOGY METHOD 08/24/2025 4:18 AM EDT [facility] RBC Count 3.56(L) 3.90 - 5.20 10*6/uL LAB HEMATOLOGY METHOD 08/24/2025 4:18 AM EDT [facility] HGB 11.0(L) 11.2 - 15.7 g/dL LAB HEMATOLOGY METHOD 08/24/2025 4:18 AM EDT [facility] HCT 33.3(L) 34.0 - 45.0 % LAB HEMATOLOGY METHOD 08/24/2025 4:18 AM EDT [facility] Platelet Count 225 155 - 369 10*3/uL LAB HEMATOLOGY METHOD 08/24/2025 4:18 AM EDT [facility] MCV 94 79 - 98 fL LAB HEMATOLOGY METHOD 08/24/2025 4:18 AM EDT [facility] MCH 30.9 26.0 - 32.0 pg LAB HEMATOLOGY METHOD 08/24/2025 4:18 AM EDT [facility] MCHC 33.0 30.7 - 35.5 g/dL LAB HEMATOLOGY METHOD 08/24/2025 4:18 AM EDT [facility] RDW 12.5 11.5 - 14.5 % LAB HEMATOLOGY METHOD 08/24/2025 4:18 AM EDT [facility] MPV 9.3 8.8 - 12.5 fL LAB HEMATOLOGY METHOD 08/24/2025 4:18 AM EDT [facility] nRBC 0.0 <=0.0 per 100 WBCs LAB HEMATOLOGY METHOD 08/24/2025 4:18 AM EDT [facility] Blood Venous blood specimen / Unknown Venipuncture / Unknown 08/24/2025 3:59 AM EDT 08/24/2025 4:14 AM EDT us Kwesi Yang MD LAB BLOOD ORDERABLES Final R esult [facility] [address] [place] [address] * CT Shoulder Right wo IV Contrast [...] lesser humeral tuberosity, humeral head and neck. [id number] osteoarthritis the glenohumeral joint. Moderate osteoarthritis of [...] lesser humeral tuberosity, humeral head and neck. [id number] osteoarthritis the glenohumeral joint. Moderateosteoarthritis of the [...] ECG Atrial Rate 101 BPM MUSE ECG ND Interval 200 ms MUSE ECG QRSD Interval 96 ms MUSE ECG QT Interval 518 ms MUSE ECG QTC Interval 671 ms MUSE ECG P [place] 66 degrees MUSE ECG R [place] 27 degrees MUSE ECG T Wave [place] 129 degrees MUSE ECG Diagnosis Poor data [...] documented as of this encounter Care Teams Expenditure Requisition Clerk Relationship Specialty Start Date End Date Brad Hassan MD [address] [place] [address] [place] [address] PCP - General Internal Medicine 08/08/23 Greta Simpson DO [facility] [id number] Obstetrics and Gynecology 07/03/23 documented as of this encounter
--- NOTE | 2025-10-19 11:00 | CA_ITS ---
APPROVED REPORT EXAM: Limited 2D Echocardiogram with contrast Environmental Field Services Technician: Milly Santillan RCS, RVS Ht: 5 ft 4 in Wt: 147lbs BSA: 1.72 BP: 136/66 mmHg Indications: HFrEF, Afib, Echo 08/28=30% EF Echo Enhancing Agent Indication: Endocardial border delineation Agent(s) / Amount(s) Used: Definity 2 cc 2D Dimensions IVSd 1.28 cm F: 0.6-1.0 LVEF (Visual) 52.90 % PWd 1.18 cm F: 0.6 - 1.0 EF AP4 58.00 % LVDd 5.59 cm F: 3.9 - 5.3 GL Strain -16.9 % LVDs 4.05 cm F: 2.2 - 3.5 Left Atrium 3.40 cm F: 2.7 - 3.8 M-Mode Dimensions RVDd 1.29 cm (0.9-2.6) LA Diam 3.24 cm (1.9-4.0) LVDd 5.79 cm (3.5-5.7) LVDs 4.05 cm (3.5-5.7) IVSd 1.02 cm (0.6-1.1) PWd 1.21 cm (0.6-1.1) EF (Teich) 56.50% EPSs 1.52 cm FS 30.10% EDV (Teich) 165.90 mL ESV (Teich) 72.10 mL Other Information Study Quality: Technically Difficult Conclusion This is a limited TTE to evaluate for LV systolic function. Limited windows are obtained. Ultrasound enhancing agent is administered. The left ventricle is normal in size. There is moderate to severe reduction global LV systolic function. There is severe hypokinesis of the septal, inferoseptal, and anteroseptal LV cueto. LVEF is 30%. Electronically signed by : Ciara Broussard MD 10/19/2025 13:11:23
--- OUTSIDE RECORDS SUMMARY | 2025-10-19 11:02 | XMS_ITS | Encounter Summary ---
Author Organization [facility] Address [address] [place] [address] Care Team Providers Care Journalism Instructor Name Role Phone Greta Simpson DO Unavailable [phone] Brad Hassan MD Primary Care Provider [phone] Encounter Details Date Type Department Care Team [...] any time in the past 12 m [facility], were you homeless or living in a half-way (including now)? No 08/24/2025 [facility] Utilities Answer Date Recorded In the [...] drink first t fabian in the morning (EYE-TECHNICAL SUPPORT ENGINEER) to steady your nerves or to [...] documented as of this encounter Care Teams Journalism Instructor Relationship Specialty Start Date End Date Brad Hassan MD [address] [place] [address] [place] [address] PCP - General Internal Medicine 08/08/23 Greta Simpson DO [facility] [address] Obstetrics and Gynecology 07/03/23 documented as of this encounter
--- OUTSIDE RECORDS SUMMARY | 2025-10-19 11:02 | XMS_ITS | Encounter Summary ---
Author Organization [facility] Address [address] [place] [address] Care Team Providers Care Dragline Oiler Name Role Phone Greta Simpson DO Unavailable [phone] Brad Hassan MD Primary Care Provider [phone] Encounter Details Date Type Department Care Team [...] any time in the past 12 m [facility], were you homeless or living in a senior living (including now)? No 08/24/2025 [facility] Utilities Answer Date Recorded In [...] drink first t fabian in the morning (EYE-INFORMATICA) to steady your nerves or to get [...] Answer Date of Assessment Author Precautions Fall risk[facility] sarah surveillance 08/31/2025 8:00 PM EDT [...] documented as of this encounter Care Teams Dragline Oiler Relationship Specialty Start Date End Date Brad Hassan MD [address] [place] [address] [place] [address] PCP - General Internal Medicine 08/08/23 Greta Simpson DO [facility] [address] Obstetrics and Gynecology 07/03/23 documented as of this encounter
--- OUTSIDE RECORDS SUMMARY | 2025-10-19 11:02 | XMS_ITS | Encounter Summary ---
Author Organization [facility] Address [address] [place] [address] Care Team Providers Care Long Distance Operator Name Role Phone Greta Simpson DO Unavailable [phone] Brad Hassan MD Primary Care Provider [phone] Encounter Details Date Type Department Care Team [...] in the past 12 m [facility], were you homeless or living in a skilled nursing (including now)? No 08/24/2025 [facility] Utilities Answer Date Recorded In [...] drink first t fabian in the morning (EYE-DISTRIBUTION CENTER SUPERVISOR) to steady your nerves or to [...] Answer Date of Assessment Author Precautions Environmental surveillance 08/27/2025 10: 00 PM EDT Nova Dickson RN * Calculated C-SSRS Risk Score (Lifetime/Recent) Answer Date of Assessment Author No Risk Indicated 08/27/2025 8:00 PM EDT Nova Dickson RN * [...] Question Answer Entry Date Author Precautions Environmental surveillance 08/27/2025 10: 00 PM EDT Nova Dickson RN documented in this encounter Plan of [...] documented as of this encounter Care Teams Long Distance Operator Relationship Specialty Start Date End Date Brad Hassan MD [address] [place] [address] [place] [address] PCP - General Internal Medicine 08/08/23 Greta Simpson DO [facility] [address] Obstetrics and Gynecology 07/03/23 documented as of this encounter
--- OUTSIDE RECORDS SUMMARY | 2025-10-19 11:02 | XMS_ITS | Encounter Summary ---
Author Organization [facility] Address [address] [place] [address] Care Team Providers Care Industrial Hygiene Manager Name Role Phone Greta Simpson DO Unavailable [phone] Brad Hassan MD Primary Care Provider [phone] Encounter Details Date Type Department Care Team [...] any time in the past 12 m [facility], were you homeless or living in a retirement (including now)? No 08/24/2025 [facility] [...] first t fabian in the morning (EYE-CHIEF DEVELOPMENT OFFICER) to steady your nerves or to get [...] Answer Date of Assessment Author Precautions Fall risk;[facility] sarah surveillance 08/24/2025 8:00 PM EDT Aminata [...] No 08/24/2025 7:30 AM EDT Mal Nolen, THEODORE 6. Suicidal Behavior (Lifetime) No 7:30 [...] documented as of this encounter Care Teams Industrial Hygiene Manager Relationship Specialty Start Date End Date Brad Hassan MD [address] [place] [address] [place] [address] PCP - General Internal Medicine 08/08/23 Greta Simpson DO [facility] [address] Obstetrics and Gynecology 07/03/23 documented as of this encounter
--- OUTSIDE RECORDS SUMMARY | 2025-10-19 11:03 | XMS_ITS | Encounter Summary ---
Author Organization Healthcare Address [address] [place] [address] Care Team Providers Care Trainer Name Role Phone Greta Simpson DO Unavailable [phone] Brad Hassan MD Primary Care Provider [phone] Encounter Details Date Type Department Care Team (Late st Contact Info) Description 08/23/2025 Orders Only External Location [address] [place] [id number] Provider, External Social History Tobacco Use Types [...] in a alf (including now)? No 08/24/2025 [facility] Utilities Answer Date Recorded In the past 12 months has th e [employer], gas, oil, or water company threatened to [...] drink first t fabian in the morning (EYE-VINE PRUNER) to steady your nerves or to get [...] documented as of this encounter Care Teams Trainer Relationship Specialty Start Date End Date Brad Hassan MD [address] [place] [address] [place] [address] PCP - General Internal Medicine 08/08/23 Greta Simpson DO [facility] G4 [address] Obstetrics and Gynecology 07/03/23 documented as of this encounter
--- OUTSIDE RECORDS SUMMARY | 2025-10-19 11:03 | XMS_ITS | Encounter Summary ---
Author Organization Healthcare Address [address] [place] [address] Care Team Providers Care Bone Tender Name Role Phone Greta Simpson DO Unavailable [phone] Brad Hassan MD Primary Care Provider [phone] Encounter Details Date Type Department Care Team (Late st Contact Info) Description 08/23/2025 Orders Only External Location [address] [place] [phone] Provider, External Social History Tobacco Use Types [...] any time in the past 12 m [facility], were you homeless or living in a senior care (including now)? No 08/24/2025 [facility] Utilities Answer Date Recorded In the past 12 months has th e [employer], gas, oil, or water company threatened to [...] drink first t fabian in the morning (EYE-OPHTHALMIC MEDICAL TECHNICIAN) to steady your nerves or to [...] documented as of this encounter Care Teams Bone Tender Relationship Specialty Start Date End Date Brad Hassan MD [address] [place] [address] [place] [address] PCP - General Internal Medicine 08/08/23 Greta Simpson DO [facility] G4 [address] Obstetrics and Gynecology 07/03/23 documented as of this encounter
--- OUTSIDE RECORDS SUMMARY | 2025-10-19 11:03 | XMS_ITS | Encounter Summary ---
Author Organization Healthcare Address [address] [place] [address] Care Team Providers Care Audience Development Manager Name Role Phone Greta Simpson DO Unavailable [phone] Brad Hassan MD Primary Care Provider [phone] Encounter Details Date Type Department Care Team (Late st Contact Info) Description 08/23/2025 Orders Only External Location [address] [place] [id number] Provider, External Social History Tobacco Use Types [...] any time in the past 12 m [facility], were you homeless or living in a long-term (including now)? No 08/24/2025 [facility] Utilities Answer Date Recorded In the past 12 months has th e [employer], gas, oil, or water company threatened to [...] drink first t fabian in the morning (EYE-CLINICAL INFORMATION SYSTEMS DIRECTOR) to steady your nerves or to [...] No Risk Indicated 08/27/2025 8:00 AM EDT iVvian Keller, THEODORE * Question Answer Date of Assessment Author 1. Wish to be (Past 1 Month) No 025 8:00 AM EDT Vivian Keller, RN 2. Non-Specific Active Suici giorgi Thoughts (Past 1 Month) No 08/27/2025 8:00 AM EDT Vivian Keller , THEOODRE 6. Suicidal Behavior (Lifetime) No 8:00 AM [...] documented as of this encounter Care Teams Audience Development Manager Relationship Specialty Start Date End Date Brad Hassna MD [address] [place] [address] [place] [address] PCP - General Internal Medicine 08/08/23 Greta Simpson DO [facility] G4 [address] Obstetrics and Gynecology 07/03/23 documented as of this encounter
--- OUTSIDE RECORDS SUMMARY | 2025-10-19 11:03 | XMS_ITS | Encounter Summary ---
Author Organization Healthcare Address [address] [place] [address] Care Team Providers Care Search Lead Name Role Phone Greta Simpson DO Unavailable [phone] Brad Hassan MD Primary Care Provider [phone] Encounter Details Date Type Department Care Team (Late st Contact Info) Description 08/23/2025 Orders Only External Location [address] [place] [address] Julianna Copeland, DO [address] [place] [address] Social History Tobacco Use Types [...] time in the [facility], were you homeless or living in a [place] facility (including now)? No 08/24/2025 [facility] Utilities Answer Date Recorded In the [...] drink first t fabian in the morning (EYE-ASPHALT HEATER TENDER) to steady your nerves or to get [...] documented as of this encounter Care Teams Search Lead Relationship Specialty Start Date End Date Brad Hassan MD [address] [place] [address] [place] [id number] PCP - General Internal Medicine 08/08/23 Greta Simpson DO [facility] G4 [address] Obstetrics and Gynecology 07/03/23 documented as of this encounter
--- OUTSIDE RECORDS SUMMARY | 2025-10-19 11:03 | XMS_ITS | Clinical Summary ---
Author Organization [facility] Address [address] [place] [address] Care Team Providers Care Washing Machine Repairer Name Role Phone Greta Simpson DO Unavailable [phone] Brad Hassan MD Primary Care Provider [phone] Allergies Active Allergy Reactions Criticality Noted Date [...] S/p reduction at [facility] following, appreciate [facility] F/u x-rays on 08/28, operative plans pending Assessment & Plan (08/25/2025 1:51 PM EDT): R humeral neck fx S/p reduction at [facility] following, appreciate [facility], anticipate non-op Assessment & Plan (08/24/2025 2:19 AM EDT): R humeral neck fx S/p reduction at [facility] following, appreciate [facility] Dizziness 08/24/2025 Assessment [...] EDT Hospital Encounter PAV A Inpatient [address] [place] [address] Flaquito Lerma MD Davidson, MD Agus Packer, MD Shanna Leal, MD Jhonny Rodriguez, MD Sangeetha Jolly, MD Nacho Syed, Izzy Arora MD Fall, initial encounter (Primary Dx); Fx humeral neck, right, closed, initial encounter; Delirium Discharge Disposition: [facility] Facility 08/23/2025 Travel 08/23/2025 Orders Only External Location [address] [place] [address] Julianna Copeland, DO 08/23/2025 Orders Only External Location [address] [place] [address] Julianna Copeland, DO 08/23/2025 Orders Only External Location [address] [place] [address] Julianna Copeland, DO 08/23/2025 Orders Only External Location [address] [place] [address] Provider, External 08/23/2025 Orders Only External Location [address] [place] [address] Provider, External 08/23/2025 Orders Only External Location [address] [place] [address] Provider, External 08/23/2025 Orders Only External Location [address] [place] [address] Provider, External 08/23/2025 Orders Only External Location [address] [place] [address] Provider, External 08/23/2025 Orders Only External Location [address] [place] [address] Provider, External 08/23/2025 Orders Only External Location [address] [place] [address] Provider, External 08/23/2025 Orders Only External Location [address] [place] [address] Provider, External 08/23/2025 Orders Only External Location [address] [place] [address] Provider, External 08/23/2025 Orders Only External Location [address] [place] [address] Provider, External 08/23/2025 Orders Only External Location [address] [place] [address] Provider, External 08/23/2025 Orders Only External Location [address] [place] [address] Provider, External 08/23/2025 Orders Only External Location [address] [place] [address] Provider, External 08/23/2025 Orders Only External Location [address] [place] [address] Julianna Copeland, DO 08/23/2025 Orders Only External Location [address] [place] [address] Provider, External 08/23/2025 Orders Only External Location [address] [place] [address] Provider, External 08/23/2025 Orders Only External Location [address] [place] [address] Provider, External 08/23/2025 Orders Only External Location [address] [place] [address] Provider, External 08/23/2025 Orders Only External Location [address] [place] [address] Provider, External from Last 3 [...] in a intermediate (including now)? No 08/24/2025 [facility] Utilities Answer Date Recorded In the [...] drink first t fabian in the morning (EYE-SUPERVISOR METER REPAIR SHOP) to steady your nerves or to get [...] Screening 1959 [facility]-Medicare Annual Wellness (AWV) 1959 [facility]-Infant/Child/Adol SDOH Screenings 1959 Diabetes: Dental Exam 1969 [facility]-DTaP,Tdap,and Td Vaccine s (1 - Tdap) 1978 [facility]-Pneumococcal Vaccine: 50 + Years (1 of 2 - PCV) 1978 CT Colonography 02/26/2004 Colonoscopy 02/26/2004 FIT-DNA 02/26/2004 FIT 02/26/2004 FOBT 02/26/2004 Sigmoidoscopy 02/26/2004 [facility]-Colorectal Cancer Screening 02/26/2004 [facility]-Breast Cancer Screening 2009 [facility]-RSV Vaccine: 60+ Years o r (1 - Risk 50-74 years 1-dose series) 2009 [facility]-Zoster Vaccines (1 of 2) 2009 [facility]-Depression Screening 09/02/2024 09/02/2023 [id number] Vaccine (1 - season) 2025 [facility]-Influenza Vaccine (#1) 2025 [facility]-Diabetes: Hemoglobin A1C 02/21/2026, 07/15/2023 [facility]- SDOH Screenings 02/22/2026 [facility]-Adult SDOH Screenings 02/22/2026 08/24/2025 [facility]-Cervical Cancer Screening Discontinued [facility]-HPV/Cotest Discontinued 07/15/2023 [facility]-Pap Smear Discontinued 07/15/2023 [facility]-Obesity Intervention Completed 08/23/2025 HPV Vaccines (No Doses Required) Completed [facility]-HIB Vaccines Aged Out No longer e [...] Comment 09/01/2025 12:06 PM EDT [facility] Maintenance Services Dispatcher ID Nathalia Senior 12:06 PM EDT [facility] Device ID [id number] 09/01/2025 12:06 PM EDT [facility] Specimen Type POC Capillary 09/01/2025 12:06 PM EDT [facility] Blood Capillary blood specimen / Unknown 09/01/2025 12:05 PM EDT 09/01/2025 12:06 PM EDT us Juan Otero MD LAB POINT OF CARE TEST DOCKED DEVICE UNSOLICITED RESULTS Final Result [facility] [address] [place] [address] * Troponin T, High Sensitivity, 2 Hour, Plasma (08/31/2025 11:58 AM EDT) Troponin T, High Sensitivity, 2 Hour 10 <14 ng/L 08/31/2025 12:32 PM EDT [facility] Blood Venous blood specimen / Unknown Venipuncture / Unknown 08/31/2025 11:58 AM EDT 08/31/2025 12:04 PM EDT us Rodney Dwyer APRN LAB BLOOD ORDERABLES Final Result [facility] [address] [place] [address] * XR Chest 1 View (08/31/2025 10:22 [...] on 08/31/2025 11:12 AM us Rodney Dwyer EXPERT WITNESS IMG XR PROCEDURES Final Re sult * ECG Adult (08/31/2025 9:44 AM EDT) Only the most recent of2 resultswithin the time period is included. EKG DIAGNOSIS CLASS Abnormal MUSE ECG Ventricular Rate 94 BPM MUSE ECG Atrial Rate 94 BPM MUSE ECG MT Interval 136 ms MUSE ECG QRSD Interval 84 ms MUSE ECG QT Interval 380 ms MUSE ECG QTC Interval 475 ms MUSE ECG P [place] 10 degrees MUSE ECG R [place] 13 degrees MUSE ECG T Wave [place] 144 degrees MUSE ECG Diagnosis Poor data quality, interpretation may be adversely affected MUSE ECG Diagnosis Normal sinus rhythm with sinus arrhythmia MUSE ECG Diagnosis ST & T wave abnormality, consider anterolateral ischemia MUSE ECG Diagnosis Abnormal ECG MUSE ECG Diagnosis MUSE ECG Diagnosis Confirmed by Quique Peacock ([id number]) on 08/31/2025 2:11:20 PM MUSE ECG 08/31/2025 9:44 AM EDT 08/31/2025 2:11 PM EDT Rodney Dwyer APRN ECG ORDERABLES Final Resu lt MUSE ECG * Troponin T, High Sensitivity, 0 Hour Plasma, Reflex to 2 Hour (08/31/2025 9:43 AM EDT) [facility] Troponin T, High Sensitivity, 0 Hour 12 <14 ng/L 08/31/2025 11:45 AM EDT [facility] Blood Venous blood specimen / Unknown Venipuncture / Unknown 08/31/2025 9:43 AM EDT 08/31/2025 11:04 AM EDT Rodney Dwyer APRN LAB BLOOD ORDERABLES Final Result [facility] [address] [place] [address] * (ABNORMAL) CBC and differential (08/31/2025 9:43 AM EDT) [facility] WBC Count 8.37 3.70 - 10.30 10*3/uL LAB HEMATOLOGY METHOD 08/31/2025 11:27 AM EDT [facility] RBC Count 3.52(L) 3.90 - 5.20 10*6/uL LAB HEMATOLOGY METHOD 08/31/2025 11:27 AM EDT [facility] HGB 10.9(L) 11.2 - 15.7 g/dL LAB HEMATOLOGY METHOD 08/31/2025 11:27 AM EDT [facility] HCT 33.0(L) 34.0 - 45.0 % LAB HEMATOLOGY METHOD 08/31/2025 11:27 AM EDT [facility] Platelet Count 393(H) 155 - 369 10*3/uL LAB HEMATOLOGY METHOD 08/31/2025 11:27 AM EDT [facility] MCV 94 79 - 98 fL LAB HEMATOLOGY METHOD 08/31/2025 11:27 AM EDT [facility] MCH 31.0 26.0 - 32.0 pg LAB HEMATOLOGY METHOD 08/31/2025 11:27 AM EDT [facility] MCHC 33.0 30.7 - 35.5 g/dL LAB HEMATOLOGY METHOD 08/31/2025 11:27 AM EDT [facility] RDW 12.4 11.5 - 14.5 % LAB HEMATOLOGY METHOD 08/31/2025 11:27 AM EDT [facility] MPV 9.1 8.8 - 12.5 fL LAB HEMATOLOGY METHOD 08/31/2025 11:27 AM EDT [facility] nRBC 0.0 <=0.0 per 100 WBCs LAB HEMATOLOGY METHOD 08/31/2025 11:27 AM EDT [facility] Differential Type Automated LAB HEMATOLOGY METHOD 08/31/2025 11:27 AM EDT [facility] Neutrophils % 68 % LAB HEMATOLOGY METHOD 08/31/2025 11:27 AM EDT [facility] Lymphocytes % 19 % LAB HEMATOLOGY METHOD 08/31/2025 11:27 AM EDT [facility] Monocytes % 11 % LAB HEMATOLOGY METHOD 08/31/2025 11:27 AM EDT [facility] Eosinophils % 1 % LAB HEMATOLOGY METHOD 08/31/2025 11:27 AM EDT [facility] Basophils % 0 % LAB HEMATOLOGY METHOD 08/31/2025 11:27 AM EDT [facility] Immature Granulocytes % 1 % LAB HEMATOLOGY METHOD 08/31/2025 11:27 AM EDT [facility] Neutrophils Absolute 5.77 1.60 - 6.10 10*3/uL LAB HEMATOLOGY METHOD 08/31/2025 11:27 AM EDT [facility] Lymphocytes Absolute 1.56 1.20 - 3.90 10*3/uL LAB HEMATOLOGY METHOD 08/31/2025 11:27 AM EDT [facility] Monocytes Absolute 0.89 0.30 - 0.90 10*3/uL LAB HEMATOLOGY METHOD 08/31/2025 11:27 AM EDT [facility] Eosinophils Absolute 0.08 0.00 - 0.50 10*3/uL LAB HEMATOLOGY METHOD 08/31/2025 11:27 AM EDT [facility] Basophils Absolute 0.02 0.00 - 0.10 10*3/uL LAB HEMATOLOGY METHOD 08/31/2025 11:27 AM EDT [facility] Immature Granulocytes Absolute 0.05 0.00 - 0.06 10*3/uL LAB HEMATOLOGY METHOD 08/31/2025 11:27 AM EDT [facility] Blood Venous blood specimen / Unknown Venipuncture / Unknown 08/31/2025 9:43 AM EDT 08/31/2025 11:17 AM EDT Narrative [facility] - 08/31/2025 11:27 AM EDT Therapeutic decision making should be based on absolute values, rather than percentages. us Rodney Dwyer APRN LAB BLOOD ORDERABLES Final Result [facility] [address] [place] [address] * (ABNORMAL) Comprehensive metabolic panel (08/31/2025 9:43 AM EDT) Glucose, Plasma 137(H) 74 - 99 mg/dL 08/31/2025 11:45 AM EDT [facility] BUN, Plasma 9 8 - 23 mg/dL 08/31/2025 11:45 AM EDT [facility] Creatinine, Plasma 0.38(L) 0.60 - 1.10 mg/dL 08/31/2025 11:45 AM EDT [facility] BUN/Creatinine Ratio 24 08/31/2025 11:45 AM EDT [facility] Sodium, Plasma 137 136 - 145 mmol/L 08/31/2025 11:45 AM EDT [facility] Potassium, Plasma 3.5(L) 3.6 - 4.9 mmol/L 08/31/2025 11:45 AM EDT [facility] Chloride, Plasma 100 97 - 107 mmol/L 08/31/2025 11:45 AM EDT [facility] CO2, Plasma 20(L) 22 - 29 mmol/L 08/31/2025 11:45 AM EDT [facility] Anion Gap 17(H) 6 - 16 mmol/L 08/31/2025 11:45 AM EDT [facility] Total Calcium, Plasma 8.9 8.9 - 10.2 mg/dL 08/31/2025 11:45 AM EDT [facility] Total Protein 6.7 6.3 - 7.9 g/dL 08/31/2025 11:45 AM EDT [facility] Albumin, Plasma 3.4(L) 3.5 - 5.2 g/dL 08/31/2025 11:45 AM EDT [facility] AST, Plasma 18 10 - 35 U/L 08/31/2025 11:45 AM EDT [facility] Comment:Hemolyzed, result ma y be falsely increased. ALT, Plasma 20 10 - 35 U/L 08/31/2025 11:45 AM EDT [facility] Alkaline Phosphatase, Plasma 60 46 - 142 U/L 08/31/2025 11:45 AM EDT [facility] Total Bilirubin, Plasma 0.7 0.2 - 1.1 mg/dL 08/31/2025 11:45 AM EDT [facility] eGFRcr 110.7 mL/min/1.7 3m*2 08/31/2025 11:45 AM EDT [facility] Comment:Reported eGFRcr in m L/min/1.73m2 is based the CKD-EPI 2020 equation that does not use a race coefficient. Blood Venous blood specimen / Unknown Venipuncture / Unknown 08/31/2025 9:43 AM EDT 08/31/2025 11:04 AM EDT us Rodney Dwyer EXPERT WITNESS LAB BLOOD ORDERABLES Final Result [facility] [address] [place] [address] * XR Shoulder Right 1 View (08/27/2025 [...] by Shon Patton on 08/27/2025 8:01 AM Juan Otero MD IMG XR PROCEDURES Final Re sult * (ABNORMAL) Urinalysis with reflex microscopic (Culture NOT Included) (08/26/2025 3:24 PM EDT) Color, Urine Yellow LAB URINALYSIS - AUTOMATED METHOD 08/26/2025 3:54 PM EDT [facility] Clarity, Urine Clear LAB URINALYSIS - AUTOMATED METHOD 08/26/2025 3:54 PM EDT [facility] Spec [place], Urine >1.030(H) 1.005 - 1.030 LAB URINALYSIS - AUTOMATED METHOD 08/26/2025 3:54 PM EDT [facility] pH, Urine 6.5 5.0 - 8.0 LAB URINALYSIS - AUTOMATED METHOD 08/26/2025 3:54 PM EDT [facility] Protein, Urine 30(A) Negative mg/dL LAB URINALYSIS - AUTOMATED METHOD 08/26/2025 3:54 PM EDT [facility] Glucose, Urine >=1000(A) Negative mg/dL LAB URINALYSIS - AUTOMATED METHOD 08/26/2025 3:54 PM EDT [facility] Ketones, Urine 40(A) Negative mg/dL LAB URINALYSIS - AUTOMATED METHOD 08/26/2025 3:54 PM EDT [facility] Blood, Urine Negative Negative LAB URINALYSIS - AUTOMATED METHOD 08/26/2025 3:54 PM EDT [facility] Bilirubin, Urine Negative Negative LAB URINALYSIS - AUTOMATED METHOD 08/26/2025 3:54 PM EDT [facility] Urobilinogen, Urine 0.2 0.2 to 1.0 mg/dL LAB URINALYSIS - AUTOMATED METHOD 08/26/2025 3:54 PM EDT [facility] Leukocytes, Urine Negative Negative LAB URINALYSIS - AUTOMATED METHOD 08/26/2025 3:54 PM EDT [facility] Nitrite, Urine Negative Negative LAB URINALYSIS - AUTOMATED METHOD 08/26/2025 3:54 PM EDT [facility] Urine Urine specimen obtained by clean catch procedure / Unknown Non-blood Collection / Unknown 08/26/2025 3:24 PM EDT 08/26/2025 3:44 PM EDT us Jaida RIBEIRO LAB URINE ORDERABLES Ivone ivy Result [facility] [address] [place] [address] * ECHO, ADULT TRANSTHORACIC COMPLETE W/ CONTRAST [...] is no recent study available for direct axle-ji-cref comparison. Left Ventricle Based on the 2D [...] is no recent study available for direct tesl-xp-cqyu comparison. us Zander Goldsmith MD CV ECHO [...] LAB HEMATOLOGY METHOD 08/24/2025 4:18 AM EDT [facility] RBC Count 3.56(L) 3.90 - 5.20 10*6/uL LAB HEMATOLOGY METHOD 08/24/2025 4:18 AM EDT [facility] HGB 11.0(L) 11.2 - 15.7 g/dL LAB HEMATOLOGY METHOD 08/24/2025 4:18 AM EDT [facility] HCT 33.3(L) 34.0 - 45.0 % LAB HEMATOLOGY METHOD 08/24/2025 4:18 AM EDT [facility] Platelet Count 225 155 - 369 10*3/uL LAB HEMATOLOGY METHOD 08/24/2025 4:18 AM EDT [facility] MCV 94 79 - 98 fL LAB HEMATOLOGY METHOD 08/24/2025 4:18 AM EDT [facility] MCH 30.9 26.0 - 32.0 pg LAB HEMATOLOGY METHOD 08/24/2025 4:18 AM EDT [facility] MCHC 33.0 30.7 - 35.5 g/dL LAB HEMATOLOGY METHOD 08/24/2025 4:18 AM EDT [facility] RDW 12.5 11.5 - 14.5 % LAB HEMATOLOGY METHOD 08/24/2025 4:18 AM EDT [facility] MPV 9.3 8.8 - 12.5 fL LAB HEMATOLOGY METHOD 08/24/2025 4:18 AM EDT [facility] nRBC 0.0 <=0.0 per 100 WBCs LAB HEMATOLOGY METHOD 08/24/2025 4:18 AM EDT [facility] Blood Venous blood specimen / Unknown Venipuncture / Unknown 08/24/2025 3:59 AM EDT 08/24/2025 4:14 AM EDT us Kwesi Yang MD LAB BLOOD ORDERABLES Final R esult [facility] [address] [place] [address] * Phosphorus (08/24/2025 3:59 AM EDT) Phosphorus, Plasma 4.1 2.5 - 4.5 mg/dL 08/24/2025 5:01 AM EDT [facility] Blood Venous blood specimen / Unknown Venipuncture / Unknown 08/24/2025 3:59 AM EDT 08/24/2025 4:22 AM EDT us Kwesi Yang MD LAB BLOOD ORDERABLES Final R esult Performing Organization Address [facility] Co de Phone Number [facility] [address] [place] [address] * Magnesium, Plasma (08/24/2025 3:59 AM EDT) Magnesium, Plasma 2.2 1.9 - 2.4 mg/dL 08/24/2025 5:01 AM EDT [facility] Blood Venous blood specimen / Unknown Venipuncture / Unknown 08/24/2025 3:59 AM EDT 08/24/2025 4:22 AM EDT us Kwesi Yang MD LAB BLOOD ORDERABLES Final R esult Performing Organization Address City/[facility]/ZIP Co de Phone Number [facility] [address] [place] [address] * (ABNORMAL) Hemoglobin A1c (08/24/2025 3:59 AM EDT) Hemoglobin A1c 6.0(H) <5.7 % 08/24/2025 5:13 PM EDT [facility] Blood Venous blood specimen / Unknown Venipuncture / Unknown 08/24/2025 3:59 AM EDT 08/24/2025 4:14 AM EDT Narrative [facility] - 08/24/2025 5:13 PM EDT HA1C Interpretive Data: Diagnosis of Diabetes: Diabetic > or = 6.5% Pre-diabetic 5.7 to 6.4% Non-diabetic < or = 5.6% Glycemic Targets for Type I and Type II Diabetics: Non- Adults <7.0% Adults <6.0% Children and Adolescents <7.5% Source: [place] [employer]. Standards of medical care in diabetes,2017. Diabetes Care.2017:40 (suppl 1):S1-S135. Brigid RIBEIRO LAB BLOOD ORDERABLES Final Result [facility] [address] [place] [address] * (ABNORMAL) Basic metabolic panel (08/24/2025 3:59 AM EDT) Glucose, Plasma 167(H) 74 - 99 mg/dL 08/24/2025 5:01 AM EDT [facility] BUN, Plasma 29(H) 8 - 23 mg/dL 08/24/2025 5:01 AM EDT [facility] Creatinine, Plasma 0.86 0.60 - 1.10 mg/dL 08/24/2025 5:01 AM EDT [facility] BUN/Creatinine Ratio 34 08/24/2025 5:01 AM EDT [facility] Sodium, Plasma 141 136 - 145 mmol/L 08/24/2025 5:01 AM EDT [facility] Potassium, Plasma 4.2 3.6 - 4.9 mmol/L 08/24/2025 5:01 AM EDT [facility] Chloride, Plasma 107 97 - 107 mmol/L 08/24/2025 5:01 AM EDT [facility] CO2, Plasma 19(L) 22 - 29 mmol/L 08/24/2025 5:01 AM EDT [facility] Anion Gap 15 6 - 16 mmol/L 08/24/2025 5:01 AM EDT [facility] Total Calcium, Plasma 9.0 8.9 - 10.2 mg/dL 08/24/2025 5:01 AM EDT [facility] eGFRcr 74.6 mL/min/1.7 3m*2 08/24/2025 5:01 AM EDT [facility] Comment:Reported eGFRcr in m L/min/1.73m2 is based the CKD-EPI 2020 equation that does not use a race coefficient. Blood Venous blood specimen / Unknown Venipuncture / Unknown 08/24/2025 3:59 AM EDT 08/24/2025 4:22 AM EDT us Kwesi Yang MD LAB BLOOD ORDERABLES Final R esult [facility] [address] [place] [address] * CT Shoulder Right wo IV Contrast [...] lesser humeral tuberosity, humeral head and neck. Jhoa-[id number]-cittufbv osteoarthritis the glenohumeral joint. Moderate osteoarthritis of [...] lesser humeral tuberosity, humeral head and neck. Dqla-[id number]-ovbuxael osteoarthritis the glenohumeral joint. Moderateosteoarthritis of the [...] written report. Preliminary report signed by Jacey Foreamn MD on 08/24/2025 1:23 AM By electronically [...] 4:34 PM EDT) Case Report Cytology Case: [id number] Authorizing Provider: Marlen Pop, Collected: 07/15/2023 1634 Ordering Location: [facility] Gynecology Received: 07/16/2023 1034 First Screen: Naomi Rosales Pathologist: Joann Martinez MD Specimen: ThinPrep Pap Test, Liquid-Based Cervical/Vagin al 07/23/2023 11:38 AM EDT [facility] Interpretation ATYPICAL SQUAMOUS CELLS OF UNDETERMINED SIGNIFICANCE (ASCUS)(A) 07/23/2023 11:38 AM EDT [facility] at 1138 EDT Other Findings Reactive endocervical gland cells. Inflammation and repair. 07/23/2023 11:38 AM EDT [facility] Specimen Adequacy Satisfactory for evaluation; endocervical/t ransformation zone component present. Slide imaged by the ThinPrep Imaging system and selected 22 vasquez reviewed then full manual screening. 07/23/2023 11:38 AM EDT [facility] Cervical cytology is a screening test [...] results is suggested (please call Microbiology at [phone] for results). 07/23/2023 11:38 AM EDT [facility] Menstrual Status Post-Menopausa l 07/23/2023 11:38 AM EDT [facility] Contraceptive History Not Applicable 07/23/2023 11:38 AM EDT [facility] Screening Type Routine Screen 2022 11:38 AM EDT [facility] High Risk? No 07/23/2023 11:38 AM EDT [facility] HPV Testing Requested? Request HPV Testing Regardless of Pap Test Findings 07/23/2023 11:38 AM EDT [facility] Previous Cancer History No 07/23/2023 11:38 AM EDT [facility] Intradepartmental Consultation with Agreement 07/23/2023 11:38 AM EDT [facility] Clinical Information R19.00 - Pelvic mass [ICD-10-CM] 07/23/2023 11:38 AM EDT [facility] Swab Vaginal and cervical cytologic material / Unknown Non-blood Collection / Unknown 07/15/2023 4:34 PM EDT 07/16/2023 10:34 AM EDT us Marlen Loredo MD LAB CYTOLOGY ORDERABL ES Final Result [facility] [address] [place] [id number] from Last 3 Months or Most Recently Relevant to Health Maintenance Insurance [facility] MEDICARE Advance Directives * Full Code [...] Patient has decision-making capacity? Yes Care Teams Washing Machine Repairer Relationship Specialty Start Date End Date Brad Hassan MD [address] [place] [address] PCP - General Internal Medicine 08/08/23 Greta Simpson DO [place] [id number] Obstetrics and Gynecology 07/03/23
--- OUTSIDE RECORDS SUMMARY | 2025-10-19 11:03 | XMS_ITS | Encounter Summary ---
Author Organization Healthcare Address [address] [place] [address] Care Team Providers Care Campus Recruiting Coordinator Name Role Phone Greta Simpson DO Unavailable [phone] Brad Hassan MD Primary Care Provider [phone] Encounter Details Date Type Department Care Team (Late st Contact Info) Description 08/23/2025 Orders Only External Location [address] [place] [id number] Provider, External Social History Tobacco Use Types [...] a care home (including now)? 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
--- OUTSIDE RECORDS SUMMARY | 2025-10-19 11:03 | XMS_ITS | Encounter Summary ---
Author Organization Healthcare Address [address] [place] [address] Care Team Providers Care Anvilsmith Name Role Phone Greta Simpson DO Unavailable [phone] Brad Hassan MD Primary Care Provider [phone] Encounter Details Date Type Department Care Team (Late st Contact Info) Description 08/23/2025 Orders Only External Location [address] [place] [phone] Provider, External Social History Tobacco Use Types [...] were you homeless or living in a usp (including now)? No 08/24/2025 [facility] Utilities Answer Date Recorded In the past 12 months has th e [employer], gas, oil, or water company threatened to [...] drink first t fabian in the morning (EYE-DIRECTOR OF THE BIOPHYSICS FACILITY) to steady your nerves or to get [...] documented as of this encounter Care Teams Anvilsmith Relationship Specialty Start Date End Date Brad Hassan MD [address] [place] [address] [place] [address] PCP - General Internal Medicine 08/08/23 Greta Simpson DO [facility] G4 [address] Obstetrics and Gynecology 07/03/23 documented as of this encounter
--- OUTSIDE RECORDS SUMMARY | 2025-10-19 11:03 | XMS_ITS | Encounter Summary ---
Author Organization Healthcare Address [address] [place] [address] Care Team Providers Care Ticket Counter Name Role Phone Greta Simpson DO Unavailable [phone] Brad Hassan MD Primary Care Provider [phone] Encounter Details Date Type Department Care Team (Late st Contact Info) Description 08/23/2025 Orders Only External Location [address] [place] [phone] Provider, External Social History Tobacco Use Types [...] any time in the past 12 m [facility], were you homeless or living in a long-term (including now)? No 08/24/2025 [facility] Utilities Answer Date Recorded In the past 12 months has th e [employer], gas, oil, or water company threatened to [...] drink first t fabian in the morning (EYE-PROTOTYPE SEWER) to steady your nerves or to get [...] documented as of this encounter Care Teams Ticket Counter Relationship Specialty Start Date End Date Brad Hassan MD [address] [place] [address] [place] [address] PCP - General Internal Medicine 08/08/23 Greta Simpson DO [facility] G4 [address] Obstetrics and Gynecology 07/03/23 documented as of this encounter
--- OUTSIDE RECORDS SUMMARY | 2025-10-19 11:03 | XMS_ITS | Encounter Summary ---
Author Organization Healthcare Address [address] [place] [address] Care Team Providers Care Map Compiler Name Role Phone Greta Simpson DO Unavailable [phone] Brad Hassan MD Primary Care Provider [phone] Encounter Details Date Type Department Care Team (Late st Contact Info) Description 08/23/2025 Orders Only External Location [address] [place] [phone] Provider, External Social History Tobacco Use Types [...] in a custodial (including now)? No 08/24/2025 [facility] Utilities Answer Date Recorded In the past 12 months has th e [facility], gas, oil, or water company threatened to [...] drink first t fabian in the morning (EYE-SHAKER WASHER) to steady your nerves or to get [...] documented as of this encounter Care Teams Map Compiler Relationship Specialty Start Date End Date Brad Hassan MD [address] [place] [address] [place] [address] PCP - General Internal Medicine 08/08/23 Greta Simpson DO [place] G4 [address] Obstetrics and Gynecology 07/03/23 documented as of this encounter
--- OUTSIDE RECORDS SUMMARY | 2025-10-19 11:03 | XMS_ITS | Encounter Summary ---
Author Organization Healthcare Address [address] [place] [address] Care Team Providers Care Business Investor Name Role Phone Greta Simpson DO Unavailable [phone] Brad Hassan MD Primary Care Provider [phone] Encounter Details Date Type Department Care Team (Late st Contact Info) Description 08/23/2025 Orders Only External Location [address] [place] [address] Julianna Cpoeland, DO [address] [place] [address] Social History Tobacco Use Types [...] any time in the past 12 m [facility], were you homeless or living in a jail (including now)? No 08/24/2025 [facility] [...] drink first t fabian in the morning (EYE-CASKET TRIMMER) to steady your nerves or to get [...] documented as of this encounter Care Teams Business Investor Relationship Specialty Start Date End Date Brad Hassan MD [address] [place] [address] [place] [address] PCP - General Internal Medicine 08/08/23 Greta Simpson DO [facility] G4 [address] Obstetrics and Gynecology 07/03/23 documented as of this encounter
--- OUTSIDE RECORDS SUMMARY | 2025-10-19 11:03 | XMS_ITS | Encounter Summary ---
Author Organization [facility] Address [address] [place] [address] Care Team Providers Care Customer Engagement Analyst Name Role Phone Greta Simpson DO Unavailable [phone] Brad Hassan MD Primary Care Provider [phone] Encounter Details Date Type Department Care Team [...] any time in the past 12 m [facility], were you homeless or living in a intermediate (including now)? No 08/24/2025 [facility] Utilities Answer Date Recorded In [...] drink first t fabian in the morning (EYE-PROCUREMENT PROFESSIONAL) to steady your nerves or to get [...] documented as of this encounter Care Teams Customer Engagement Analyst Relationship Specialty Start Date End Date Brad Hassan MD [address] [place] [address] [place] [address] PCP - General Internal Medicine 08/08/23 Greta Simpson DO [facility] [address] Obstetrics and Gynecology 07/03/23 documented as of this encounter
--- OUTSIDE RECORDS SUMMARY | 2025-10-19 11:03 | XMS_ITS | Encounter Summary ---
Author Organization Healthcare Address [address] [place] [address] Care Team Providers Care Sales Lead Name Role Phone Greta Simpson DO Unavailable [phone] Brad Hassan MD Primary Care Provider [phone] Encounter Details Date Type Department Care Team (Late st Contact Info) Description 08/23/2025 Orders Only External Location [address] [place] [address] Julianna Copeland, DO [address] [place] [address] Social History Tobacco Use Types [...] in a fpc (including now)? No 08/24/2025 [facility] Utilities Answer Date Recorded In the [...] drink first t fabian in the morning (EYE-REHABILITATION COUNSELOR) to steady your nerves or to [...] as of this encounter Care Teams Sales Lead Relationship Specialty Start Date End Date Brad Hassan MD [address] [place] [address] [place] [address] PCP - General Internal Medicine 08/08/23 Greta Simpson DO [facility] G4 [address] Obstetrics and Gynecology 07/03/23 documented as of this encounter
--- OUTSIDE RECORDS SUMMARY | 2025-10-19 11:03 | XMS_ITS | Encounter Summary ---
Author Organization Healthcare Address [address] [place] [address] Care Team Providers Care Ordnance Artificer Name Role Phone Greta Simpson DO Unavailable [phone] Brad Hassan MD Primary Care Provider [phone] Encounter Details Date Type Department Care Team (Late st Contact Info) Description 08/23/2025 Orders Only External Location [address] [place] [phone] Provider, External Social History Tobacco Use Types [...] any time in the past 12 m [facility], were you homeless or living in a fdc (including now)? No 08/24/2025 [facility] Utilities Answer Date Recorded In the past 12 months has th e [employer], gas, oil, or water company threatened [...] drink first t fabian in the morning (EYE-MICROBIOLOGY TECHNICIAN) to steady your nerves or to [...] documented as of this encounter Care Teams Ordnance Artificer Relationship Specialty Start Date End Date Brad Hassan MD [address] [place] [address] [place] [address] PCP - General Internal Medicine 08/08/23 Greta Simpson DO [facility] G4 [address] Obstetrics and Gynecology 07/03/23 documented as of this encounter
--- OUTSIDE RECORDS SUMMARY | 2025-10-19 11:03 | XMS_ITS | Encounter Summary ---
Author Organization Healthcare Address [address] [place] [address] Care Team Providers Care Furniture Stainer Name Role Phone Greta Simpson DO Unavailable [phone] Brad Hassan MD Primary Care Provider [phone] Encounter Details Date Type Department Care Team (Late st Contact Info) Description 08/23/2025 Orders Only External Location [address] [place] [address] Julianna Copeland, DO [address] [place] [address] Social History Tobacco Use Types [...] any time in the past 12 m [facility], were you homeless or living in a assisted (including now)? No 08/24/2025 [facility] Utilities Answer Date Recorded In the [...] drink first t fabian in the morning (EYE-CORPORATE DRIVER) to steady your nerves or to [...] 08/23/2025 5:49 PM EDT Julianna Copeland DO [facility] PROCEDURES Edited Result - Final documented in this encounter Visit Diagnoses Not on filedocumented in this encounter Additional Health Concerns Assessment Noted Time A fall risk assessment has been complete d for the patient 09/02/2023 4:03 PM EDT A Body Mass Index follow-up plan has been documented for the patient 09/01/2025 1:30 PM EDT documented as of this encounter Care Teams Furniture Stainer Relationship Specialty Start Date End Date Brad Hassan MD [address] [place] [address] [place] [address] PCP - General Internal Medicine 08/08/23 Greta Simpson DO [facility] G4 [address] Obstetrics and Gynecology 07/03/23 documented as of this encounter
--- OUTSIDE RECORDS SUMMARY | 2025-10-19 11:03 | XMS_ITS | Encounter Summary ---
Author Organization Healthcare Address [address] [place] [address] Care Team Providers Care Cook At School Name Role Phone Greta Simpson DO Unavailable [phone] Brad Hassan MD Primary Care Provider [phone] Encounter Details Date Type Department Care Team (Late st Contact Info) Description 08/23/2025 Orders Only External Location [address] [place] [address] Provider, External Social History Tobacco Use Types [...] any time in the past 12 m [facility], were you homeless or living in a fpc (including now)? No 08/24/2025 [facility] Utilities Answer Date Recorded In the past 12 months has th e [employer], gas, oil, or water company threatened to [...] drink first t fabian in the morning (EYE-AIR BRAKE WORKER) to steady your nerves or to [...] documented as of this encounter Care Teams Cook At School Relationship Specialty Start Date End Date Brad Hassan MD [address] [place] [address] [place] [address] PCP - General Internal Medicine 08/08/23 Greta Simpson DO [facility] G4 [address] Obstetrics and Gynecology 07/03/23 documented as of this encounter
--- OUTSIDE RECORDS SUMMARY | 2025-10-19 11:03 | XMS_ITS | Encounter Summary ---
Author Organization Healthcare Address [address] [place] [address] Care Team Providers Care Junior Media Buyer Name Role Phone Greta Simpson DO Unavailable [phone] Brad Hassan MD Primary Care Provider [phone] Encounter Details Date Type Department Care Team (Late st Contact Info) Description 08/23/2025 Orders Only External Location [address] [place] [address] Provider, External Social History Tobacco Use Types [...] in a snf (including now)? No 08/24/2025 [facility] Utilities Answer Date Recorded In the past 12 months has th e [employer], gas, oil, or water company threatened to [...] drink first t fabian in the morning (EYE-FOOD PREPARATION WORKER) to steady your nerves or to [...] documented as of this encounter Care Teams Junior Media Buyer Relationship Specialty Start Date End Date Brad Hassan MD [address] [place] [address] [place] [address] PCP - General Internal Medicine 08/08/23 Greta Simpson DO [facility] G4 [address] Obstetrics and Gynecology 07/03/23 documented as of this encounter
--- OUTSIDE RECORDS SUMMARY | 2025-10-19 11:03 | XMS_ITS | Encounter Summary ---
Author Organization Healthcare Address [address] [place] [address] Care Team Providers Care Implementation Director Name Role Phone Greta Simpson DO Unavailable [phone] Brad Hassan MD Primary Care Provider [phone] Encounter Details Date Type Department Care Team (Late st Contact Info) Description 08/23/2025 Orders Only External Location [address] [place] [phone] Provider, External Social History Tobacco Use Types [...] time in the past [address] [facility], were you homeless or living in a senior care (including now)? No 08/24/2025 [facility] Utilities Answer Date Recorded In the past 12 months has th e [employer], gas, oil, or water company threatened to [...] drink first t fabian in the morning (EYE-KITCHEN HELPER) to steady your nerves or to [...] Risk Indicated 08/27/2025 8:00 AM EDT Vivian eKller, RN * Question Answer Date of Assessment [...] documented as of this encounter Care Teams Implementation Director Relationship Specialty Start Date End Date Brad Hassan MD [address] [place] [address] [place] [address] PCP - General Internal Medicine 08/08/23 Greta Simpson DO [facility] G4 [address] Obstetrics and Gynecology 07/03/23 documented as of this encounter
--- OUTSIDE RECORDS SUMMARY | 2025-10-19 11:04 | XMS_ITS | Encounter Summary ---
Author Organization Healthcare Address [address] [place] [address] Care Team Providers Care Forest Products Gatherer Name Role Phone Greta Simpson DO Unavailable [phone] Brad Hassan MD Primary Care Provider [phone] Encounter Details Date Type Department Care Team (Late st Contact Info) Description 08/23/2025 Orders Only External Location [address] [place] [phone] Provider, External Social History Tobacco Use Types [...] in a correction (including now)? No 08/24/2025 [facility] Utilities Answer Date Recorded In the past 12 months has th e [employer], gas, oil, or water company threatened to [...] drink first t fabian in the morning (EYE-OUTREACH ASSISTANT) to steady your nerves or to get [...] documented as of this encounter Care Teams Forest Products Gatherer Relationship Specialty Start Date End Date Brad Hassan MD [address] [place] [address] [place] [address] PCP - General Internal Medicine 08/08/23 Greta Simpson DO [facility] G4 [address] Obstetrics and Gynecology 07/03/23 documented as of this encounter
--- OUTSIDE RECORDS SUMMARY | 2025-10-19 11:04 | XMS_ITS | Encounter Summary ---
Author Organization Healthcare Address [address] [place] [address] Care Team Providers Care Pulp Bleacher Name Role Phone Greta Simpson DO Unavailable [phone] Brad Hassan MD Primary Care Provider [phone] Encounter Details Date Type Department Care Team (Late st Contact Info) Description 08/23/2025 Orders Only External Location [address] [place] [phone] Provider, External Social History Tobacco Use Types [...] in a custodial (including now)? No 08/24/2025 [facility] Utilities Answer Date Recorded In the past 12 months has th e [employer], gas, oil, or water company threatened to [...] drink first t fabian in the morning (EYE-RECORD CLERK) to steady your nerves or to [...] documented as of this encounter Care Teams Pulp Bleacher Relationship Specialty Start Date End Date Brad Hassan MD [address] [place] [address] [place] [address] PCP - General Internal Medicine 08/08/23 Greta Simpson DO [facility] G4 [address] Obstetrics and Gynecology 07/03/23 documented as of this encounter
--- OUTSIDE RECORDS SUMMARY | 2025-10-19 11:04 | XMS_ITS | Encounter Summary ---
Author Organization Healthcare Address [address] [place] [address] Care Team Providers Care Surgical Lead Name Role Phone Greta Simpson DO Unavailable [phone] Brad Hassan MD Primary Care Provider [phone] Encounter Details Date Type Department Care Team (Late st Contact Info) Description 08/23/2025 Orders Only External Location [address] [place] [phone] Provider, External Social History Tobacco Use Types [...] any time in the past 12 m [facility], were you homeless or living in a [place] [facility] [place] facility (including now)? No 08/24/2025 [facility] Utilities Answer Date Recorded In the past 12 months has th e [employer], gas, oil, or water company threatened to [...] drink first t fabian in the morning (EYE-SLATER APPRENTICE) to steady your nerves or to get [...] 1 Month) No 025 8:00 AM EDT Vivina Keller, RN 2. Non-Specific Active [employer] [...] documented as of this encounter Care Teams Surgical Lead Relationship Specialty Start Date End Date Brad Hassan MD [address] [place] [address] [place] [address] PCP - General Internal Medicine 08/08/23 Greta Simpson DO [facility] G4 [address] Obstetrics and Gynecology 07/03/23 documented as of this encounter
--- OUTSIDE RECORDS SUMMARY | 2025-10-19 11:04 | XMS_ITS | Encounter Summary ---
Author Organization Healthcare Address [address] [place] [address] Care Team Providers Care Dwarf Tree Grower Name Role Phone Greta Simpson DO Unavailable [phone] Brad Hassan MD Primary Care Provider [phone] Encounter Details Date Type Department Care Team (Late st Contact Info) Description 08/23/2025 Orders Only External Location [address] [place] [phone] Provider, External Social History Tobacco Use Types [...] any time in the past 12 m [facility], were you homeless or living in a custodial (including now)? No 08/24/2025 [facility] Utilities Answer Date Recorded In the past 12 months has th e [employer], gas, oil, or water company threatened to [...] drink first t fabian in the morning (EYE-WINCHER) to steady your nerves or to get [...] documented as of this encounter Care Teams Dwarf Tree Grower Relationship Specialty Start Date End Date Brad Hassan MD [address] [place] [address] [place] [address] PCP - General Internal Medicine 08/08/23 Greta Simpson DO [facility] G4 [address] Obstetrics and Gynecology 07/03/23 documented as of this encounter
--- OUTSIDE RECORDS SUMMARY | 2025-10-19 11:04 | XMS_ITS | Encounter Summary ---
Author Organization Healthcare Address [address] [place] [address] Care Team Providers Care Cycle Consultant Name Role Phone Greta Simpson DO Unavailable [phone] Brad Hassan MD Primary Care Provider [phone] Encounter Details Date Type Department Care Team (Late st Contact Info) Description 08/23/2025 Orders Only External Location [address] [place] [phone] Provider, External Social History Tobacco Use Types [...] any time in the past 12 m [facility], were you homeless or living in a long-term (including now)? No 08/24/2025 [facility] Utilities Answer Date Recorded In the past 12 months has th e [employer], gas, oil, or water company threatened to [...] drink first t fabian in the morning (EYE-OFFICE ASSISTANT RECEPTIONIST) to steady your nerves or to get [...] documented as of this encounter Care Teams Cycle Consultant Relationship Specialty Start Date End Date Brad Hassan MD [address] [place] [address] [place] [address] PCP - General Internal Medicine 08/08/23 Greta Simpson DO [facility] G4 [address] Obstetrics and Gynecology 07/03/23 documented as of this encounter
--- OUTSIDE RECORDS SUMMARY | 2025-10-19 11:04 | XMS_ITS | Encounter Summary ---
Author Organization Healthcare Address [address] [place] [address] Care Team Providers Care Injection Mold Tooling Technician Name Role Phone Greta Simpson DO Unavailable [phone] Brad Hassan MD Primary Care Provider [phone] Encounter Details Date Type Department Care Team (Late st Contact Info) Description 08/23/2025 Orders Only External Location [address] [place] [phone] Provider, External Social History Tobacco Use Types [...] any time in the past 12 m [facility], were you homeless or living in a long-term (including now)? No 08/24/2025 [facility] Utilities Answer Date Recorded In the past 12 months has th e [employer], gas, oil, or water company threatened to [...] drink first t fabian in the morning (EYE-LIGHT INDUSTRIAL SUPERVISOR) to steady your nerves or to [...] documented as of this encounter Care Teams Injection Mold Tooling Technician Relationship Specialty Start Date End Date Brad Hassan MD [address] [place] [address] [place] [address] PCP - General Internal Medicine 08/08/23 Greta Simpson DO [facility] G4 [address] Obstetrics and Gynecology 07/03/23 documented as of this encounter
--- OUTSIDE RECORDS SUMMARY | 2025-10-19 11:04 | XMS_ITS | Encounter Summary ---
Author Organization Healthcare Address [address] [place] [address] Care Team Providers Care Financial Advisor Trainee Name Role Phone Greta Simpson DO Unavailable [phone] Brad Hassan MD Primary Care Provider [phone] Encounter Details Date Type Department Care Team (Late st Contact Info) Description 08/23/2025 Orders Only External Location [address] [place] [phone] Provider, External Social History Tobacco Use Types [...] a senior care (including now)? No 08/24/2025 [facility] Utilities Answer Date Recorded In the past 12 months has th e [employer], gas, oil, or water company threatened to [...] drink first t fabian in the morning (EYE-LAMP DEVELOPER) to steady your nerves or to get [...] documented as of this encounter Care Teams Financial Advisor Trainee Relationship Specialty Start Date End Date Brad Hassan MD [address] [place] [address] [place] [address] PCP - General Internal Medicine 08/08/23 Greta Simpson DO [facility] G4 [address] Obstetrics and Gynecology 07/03/23 documented as of this encounter
[2025-10-19] MEDS: DEFINITY US ECHO CONTRAST 2ML INJ 2 MG IV (11:48)
== END 2025-10-19 23:59 | disposition home or self-care (01) ==
LOC: RT 10:45
PROVIDERS: PCP Nurse Practitioner Family; Visit Provider Internal Medicine
DX: I50.20 Unspecified systolic (congestive) heart failure (principal); I48.91 Unspecified atrial fibrillation; R93.1 Abnormal findings on diagnostic imaging of heart and coronary circulation; R06.09 Other forms of dyspnea
CPT/HCPCS: 93308; Q9957

== ENCOUNTER 2025-10-25 09:47 | Outpatient (CLI) | payer MEDICARE, MEDICAID, SELFPAY ==
--- OUTSIDE RECORDS SUMMARY | 2025-08-23 20:41 | XMS_ITS | Encounter Summary ---
Author Organization Healthcare Address [address] [id number] Care Team Providers Care Trader Name Role Phone Greta Simpson DO Unavailable [phone] Brad Hassan MD Primary Care Provider [phone] Reason for Referral * Consultation (Routine) - Authorized Specialty Diagnoses / Procedures Referred By Contac t Referred To Contact Neurology Diagnoses Fall, initial encounter Delirium Rodney Dwyer APRN [address] [place] [address] Phone: tel: fax: [facility] [address], [address] [place] [address] Phone: tel: fax: Referral ID Status Reason Start Date Expiration Date Visits Requested Visits Authorized [id number] Authorized Specialty Services Required 5 03/03/2027 1 1 Reason for Visit * Reason Comments Fall * Auth/Cert (Routine) Specialty Diagnoses / Procedures Referred By Contac t Referred To Contact Diagnoses Fall from standing, initial encounter Fall, laid on shoulder all night, right shoulder ball and socket joint fx Nikole Mann MD [address] [facility] [address] [place] [address] Phone: tel: fax: [facility] Emergency Department [address] [place] [address] Phone: tel: Referral ID Status Reason Start Date Expiration Date Visits Re quested Visits Authorized [id number] 1 1 Encounter Details Date Type Department Care Team (Latest Contact Info) Description 08/23/2025 9:41 PM EDT - 09/01/2025 3:35 PM EDT Hospital Encounter [facility] Inpatient [address] [id number] Flaquito Lerma MD [address] [place] [address] Kwesi Yang MD [address] [place] [address] Nikole Mann MD [address] [facility] [address] [place] [address] Juan Otero MD [address] [facility] [address] [place] [address] Caro Barry MD [address] [facility] [place] [address] Ester Vivas MD [address] [facility] [place] [address] Izzy Griffith MD [address] [place] [address] Fall, initial encounter (Primary Dx); Fx humeral neck, right, closed, initial encounter; Delirium Discharge Disposition: Penitentiary Facility Social History Tobacco Use Types Packs/Day [...] any time in the past 12 m [facility], were you homeless or living in a fpc (including now)? No 08/24/2025 [facility] Utilities Answer Date Recorded In the [...] drink first t fabian in the morning (EYE-PLANNING OFFICIAL) to steady your nerves or to get [...] 8:30AM @ Orthopaedic Surgery & Sports Medicine; [facility], [address] [place] [address] First Floor, Wing C, Room [address], [place] [address], # [phone]. SGT: BRANDON Saturday Clinic as needed; [address] [place] [address] First Floor, [address] [address], #[phone]. Questions or Concerns and Appointments If there are questions or concerns after discharge from the hospital, please call [phone] and ask for Blue Surgery Nurse. Working hours are Saturday - Saturday 8:00 AM to 4:00 PM. After hours, weekends and holidays please call [phone] and ask for the resident warehouse consultant for Blue Surgery. For appointments please call [phone]. Medication requests should be made between the hours of 9:00 AM to 3:00 PM Saturday thru Saturday. Please note that based upon recent changes to [place] law related to prescribing opioid pain medications, [...] Note Madyson Machado 65 y.o. female CSN: [id number] Admission: 08/23/2025 9:41 PM Primary Problem: Fall Primary Wool Grower: Primary Caregiver: Self Assistance Available at Discharge: Current Outpatient/Agency/Support Group: DME Availability of Care Givers (#Hours): 24 hours Housing Circumstances-Z Codes: Housing Circumstances (select all that apply): Low Income (101-300% Federal Poverty Guidlines) - Z596 Patient Referred to Financial or Community Resources: Discharge Facility/Level of Care Needs: Discharge Facility/Level of Care Needs: 3-Penitentiary Facility Patient's Choice of Community Agency(s): Patient/Family Anticipated Services at Transition: Patient/Family Anticipated Services at Transition: snf, rehabilitation services DME/Equipment Needed after Discharge: Equipment Currently Used at Home: cane, straight Readmission Within the Last 30 Days: Readmission Within the Last 30 Days: no previous admission in last 30 days Medicare Documentation: Follow-up: [address] [address] Follow up Primary care provider (PCP) Brad Hassan MD [address] [place] [address] Julianna Copeland S, DO [address] [facility] [address] [place] [facility] [address], 1[address] [facility] [address] Discharge Transportation: Transportation Anticipated: medical transport Transportation Home at Discharge: Medical Transport Has discharge transport been arranged?: Yes What day is the transport expected?: 09/01/25 What time is the transport expected?: 1500 Follow Up Transport: Transportation Needed to Follow up Appoinments: Medical Transport Additional Comments: Per SGT provider, pt is medically ready for d/c to [facility] this day. Pt has been accepted to [facility] and has a bed and insurance auth this day. [facility] stretcher transport scheduled for bedside pickup at 15:00. RN to call report to [phone]. Pt daughter is aware and agreeable to [...] controlled substances: ? Drug Enforcement Agency (JONATHON): http://www.deadiversion.American Addiction CentersoDocitt.gov/drug_disposal/takeback/index.htm ? National Association of Drug Diversion Investigators (NADDI): http://rxdrugdropbox.org/ ? [place] Office of Drug Control Policy: http://odcp.[place].gov/Prescription+Drug+Drop+Box+Sites.htm Are there concerns about or ? ? [...] look blue or purple What is a [facility] report? [facility] is a system that tracks prescriptions of controlled substances in [place]. The PITO report tells your doctor if you have been prescribed controlled substances in the past. Doctors must get a PITO report before prescribing controlled substances. What can I do if the information in my PITO report is wrong? You or your doctor may contact the dispenser who reported the information to [facility]. If the dispenser agrees that the information should be changed, he or she can fix the PITO report. However, the dispenser may certify that the report is correct. If that is the case, you or your doctor may then call the [place] Drug Enforcement and Professional Practices Branch at .This will start an investigation of the error. * [facility] - Declan Chew RN - 09/01/2025 1:23 PM EDT Images from the original note were not included. 1087 Oxycodone Oral Tablet, Immediate Release Brand Names: Oxaydo, Roxicodone What is this medicine? Oxycodone (yd-n-ZFE-done) is an opioid pain reliever. It is used to treat moderate to severe pain. What should I tell my health care provider before I take this medicine? They need to know if you have any of these conditions: ? Juniata's disease ? Brain tumor or head injury [...] a special medication guide each time you pickle sorter this medicine. ? Overdosage: Taking too much [...] should report to your doctor or health healthcare technician as soon as possible: ? allergic reactions [...] attention (report to your doctor or health healthcare technician if they continue or are bothersome): ? constipation ? dry mouth ? itching ? nausea, vomiting ? upset stomach This list may not describe all possible side effects. Call your doctor for medical advice about side effects. You may report side effects to FDA at 3-336-MHW-7316. Where should I keep my medicine? This [...] location. To find a disposal location, visit Serviceful/[facility]/[place]. If you cannot take unused medicine to a proper location, you can mix the medicine with coffee grounds or fausto litter and dispose of in the normal trash. Your doctor may also give you a special disposal pouch for this medicine. You can also flush the medicine down the toilet. * [facility] - Declan Chew RN - 09/01/2025 1:23 PM EDT Images from the original note were not included. [id number] Naloxone Nasal [place] WHY is this medicine prescribed? Prescription and [...] pharmacist for the instructions or visit the sign language teacher's website to get the instructions. You should [...] or doctor for a copy of the sign language teacher's information for the patient. Are there OTHER [...] and out of their sight and reach. https://www.Nanosys.org Dispose of unneeded medications in a way [...] of all of the prescription and nonprescription (tvoe-jhq-ycsfbnd) medicines, vitamins, minerals, and dietary supplements you [...] or pharmacist about specific clinical use. The [place] [employer]. represents that the information provided hereunder was formulated with a reasonable standard of care, and in conformity with professional standards in the field. The [place] [employer]System [employer]. makes no representations or warranties, express or implied, including, but not limited to, any implied warranty of merchantability and/or fitness for a particular purpose, with respect to such information and specifically disclaims all such warranties. Users are advised that decisions regarding drug therapy are complex medical decisions requiring the independent, informed decision of an appropriate health healthcare technician, and the information is provided for informational purposes only. The entire monograph for a drug should be reviewed for a thorough understanding of the drug's actions, uses and side effects. The [employer]System Pharmac[employer]. does not endorse or recommend the use of any drug.The information is not a substitute for medical care. AHFS?? Patient Medication Information?. ?? Copyright, 2023. The [employer] of Health-System Pharmacists??, [address], [address], [place], [place]. All Rights Reserved. Duplication for commercial use must be authorized by [facility]. Selected Revisions: May 23, 2024. AHFS?? Patient Medication Information?. ?? Copyright, 2024 * Discharge Summary - Rodney Dwyer, MATHEMATICAL SCIENTIST - 09/01/2025 1:19 PM EDT Hospitalization Admit Date/Time: 08/23/2025 9:41 PM Admitting Attending: Nikole Mann Discharge Date: 09/01/25 Discharge Attending Physician: Jaun Otero MD PCP name and Address: Brad Hassan MD [address] / [place] [address] Referring provider name and address: Julianna Copeland, DO [address] [place] [address] Chief Concern, Brief History of Present Illness, [...] stay, and so will be discharged to [facility] in [place]. DVT prophylaxis: None on discharge Procedures: None [...] 8:30AM @ Orthopaedic Surgery & Sports Medicine; [facility], [address] [place] [address], First Floor, Wing C, [address], [place] [address], # [phone]. SGT: BRANDON Saturday Clinic as needed; [address] [place] [address] First Floor, [address] [address], #[phone]. Questions or Concerns and Appointments If there are questions or concerns after discharge from the hospital, please call [phone] and ask for Blue Surgery Nurse. Working hours are Saturday - Saturday 8:00 AM to 4:00 PM. After hours, weekends and holidays please call [phone] and ask for the resident warehouse consultant for Blue Surgery. For appointments please call [phone]. Medication requests should be made between the hours of 9:00 AM to 3:00 PM Saturday thru Saturday. Please note that based upon recent changes to [place] law related to prescribing opioid pain medications, [...] Your Medications These medications [place], [place] - [address] [address] [facility] [place] [address] naloxone 4 mg/0.1 mL nasal spray oxyCODONE [...] Center 10/06/2025 9:10 AM Ricki Clark MD [facility] [place] Test Results Pending At Discharge Pertinent [...] normal. Discharge Disposition/Condition Disposition: Rehab facility (specify)[facility] [place] Condition: Stable (s/sx potential problems absent or manageable) I spent >30 minutes of patient care and instruction time in preparation for this discharge. Cosigned by Juan Otero MD at 09/01/2025 1:34 PM EDT Associated attestation - Juan Otero MD - 09/01/2025 1:34 PM EDT The patient was seen only by Advanced Practice Provider (BRANDON). Juan Otero MD, CYDNEY vice president of recruiting Division of Acute Care Surgery * [facility] - Declan hCew RN - 09/01/2025 11:01 AM EDT Images from the original note were not included. [address] Preventing Falls: Making Changes in Your Living [...] might need to talk to your building rental manager or homeowners' association about them. ? Have [...] removal. Last Reviewed Date: 2025 00:00:00 ?? 6232-1097 The [employer]. All rights reserved. This information is not intended as a substitute for professional medical care. Always follow your healthcare professional's instructions. * [facility] - Declan Chew RN - 09/01/2025 11:01 AM EDT Images from the original note were not included. [id number] Fall Prevention Falls often take place due [...] medical history, your current prescriptions and your kgio-yet-ewszmfv medicines. As a general rule, the National [place] on Aging (NCA) recommends taking one-third of [...] often. Last Reviewed Date: 2025 00:00:00 ?? 3079-7125 The [employer]. All rights reserved. This information is not intended as a substitute for professional medical care. Always follow your healthcare professional's instructions. * [facility] - Declan Chew, RN - 09/01/2025 11:01 AM EDT Images from the original note were not included. 37700 Wearing a Cuff and Collar Sling What [...] part of the sling breaks. * [facility] - Declan Chew RN - 09/01/2025 [...] of your leg. This is also called ?Bezawq-pv-Vgb Weight Bearing,? ?Toe-Touch Weight Bearing,? or ?Foot-Flat [...] from the original note were not included. 96822 Understanding a Humerus Fracture When you have [...] pain. ? Pain medicines. Taking prescription or xzwb-ndf-ifdhixm pain medicines may help reduce pain and [...] symptoms. Last Reviewed Date: 2025 00:00:00 ?? 7607-2400 The [employer]. All rights reserved. This information is not [...] Note Madyson Machado 65 y.o. female CSN: [id number] Admission: 08/23/2025 9:41 PM Primary Problem: Fall Additional Comments Per SGT provider, pt not medically ready for d/c. Pt pending neuropsych evaluation for decisional capacity, CXR, and EKG. EDUARD updated [facility] [place] liaison and pt daughter. Per [facility] liaison, [...] patient or nursing. Edited by: Rodney Dwyer, MATHEMATICAL SCIENTIST at 08/31/2025 1335 Relevant review of systems [...] 08/28/2025 1:09 PM by Angeline Alexander APRN, DEJUAN Plan: - MMPC - Speech eval - EKG, CXR, stat labs - Bowel regimen - PT/OT - Ortho: WINIFRED ARAGON, C/C Dispo: Subacute rehab Edited by: Rodney Dwyer APRN at 08/31/2025 1341 Rodney Dwyer APRN * Progress Notes - Nicolle Raymundo, ALEX-PULL OUT OPERATOR - 08/31/2025 12:11 PM EDT Speech Language Pathology Clinical Swallow Initial Evaluation Patient Name: Brigid Machado Age: 65 y.o. Today's Date: 08/31/2025 Recommendations: Easy to chew (IDDSI Level 7) diet w/ thin liquids (Level 0). Meds up to whole w/ puree/pudding. 1:1 for feeding assistance. PULL OUT OPERATOR will follow. History/Background Information 65 y/o female [...] Positionin-90 degrees Feeding assistance: intermittent assistance from PULL OUT OPERATOR or caregiver Consistencies Administered: ice chips, thin [...] liquid, therefore,meds should be administered in puree/pudding. PULL OUT OPERATOR to follow to determine readiness for diet texturemodification. If AMS worsens, pt should be made NPO until PULL OUT OPERATOR clinical re-evaluation. Prognosis: Good for improved function [...] C+C. Please page ORF with any questions: [phone] Talon Ramos Orthopaedic Surgery and Sports Medicine [facility] * Care Plan - Bety Paz RN [...] Per MD, patient medically to DC to [facility]. KATTY spoke with patient's daughter Latosha Banerjee ([phone]) and she is still agreeable to [facility]. However, she said her and patient wanted surgery on patient's arm done before rehab. QUINTIN Bojorquez checking with Ortho. KATTY spoke with [facility] liaison Sumi ([phone]) to update and and she is checking [...] all needs met. RN req uesting self-releasing [place] strap be donned. RN aware of session [...] functional mobility, functional strength, and activity tolerance. LINOLEUM TILE LAYER provided verbal and tactile cues to facilitate [...] flexion. Bed Mobility Exam: Scooting/Bridging Level of Sierra: Minimum assist (75% patient's effort) Physical/Nonphysical Assist: Verbal Cues, Minimal cues Assistive Device: Other (HORTICULTURAL FARM MANAGER/LUE) Bed Mobility Exam: Supine to Sit Level of Sierra: Minimum assist (75% patient's effort) Physical/Nonphysical Assist: Verbal Cues, Nonverbal cues (demo/gestures), HOB elevated, Moderate cues Assistive Device: Other (HORTICULTURAL FARM MANAGER/LUE and trunk) Transfers Transfer Interventions: Provided cues for proper hand placement, NWB RUE, BLE set-up, forward trunkleans to initiate coming to stand, and safe descent to sit. Transfer Exam: Sit to stand Level of Sierra: Minimum assist (75% patient's effort) Physical/Nonphysical Assist: Verbal Cues, Nonverbal cues (demo/gestures), Moderate cues Assistive Device: Hand held assist Transfer Exam: Stand to Sit Level of Sierra: Minimum assist (75% patient's effort) Physical/Nonphysical Assist: [...] Edited by: Leroy Roa PA at 08/30/2025 0920 Relevant review of systems was obtained as [...] Sports Medicine Orthopedic Reconstructiion (MARAVILLA) Service Pager: [phone] Orthopedic Trauma (ORF) Service Pager: [phone] Cosigned by Ricki Clark MD at 08/30/2025 [...] reduction at OSH Ortho following, appreciate recs [facility] NWB RUE F/u x-rays on 08/27, operative [...] - 08/29/2025 8:03 AM EDT 08/29/25 Madyson RICHARDS Brigid Machado is a 65 [...] reduction at [facility] following, [facility] on 08/27, operative plans pending after discussion with attending on 08/29 Fall from standing, initial encounter Present on Admission: Yes Possible orthostatic fall Admit to [facility] 08/24 Dizziness Present on Admission: Yes Questionable [...] by: Stephen Lundberg APRN at 08/29/2025 1114 Stepehn Lundberg APRN Cosigned by Angeline Alexander APRN, DNP at 08/29/2025 11:38 AM EDT Associated attestation - Angeline Alexander APRN, DNP - 08/29/2025 11:38 AM EDT I saw and evaluated the patient with the MULTINEEDLE SHIRRER student. I discussed the case with the MULTINEEDLE SHIRRER student and agree with the findings and [...] reduction at OSH Ortho following, appreciate recs [facility] NWB RUE F/u x-rays on 08/27, operative [...] reduction at OSH Ortho following, appreciate recs [facility] NWB RUE F/u x-rays on 08/27, operative plans pending after discussion with attending on 08/29 Fall from standing, initial encounter Present on Admission: Yes Possible orthostatic fall Admit to [facility] 6 Tertiary 08/24 Dizziness Present on Admission: [...] Note Madyson Machado 65 y.o. female CSN: [id number] Room/Bed 230/230A Nutrition evaluation type: assessment Reason for evaluation: [facility] Hospital course: 65 y o F [...] (98.2 ??F) Oxygen Therapy: None (Room air) Hiram Coma Scale Score: 15 Salvador Scale Score: [...] 1 oz) Estimated Needs: Kcal: 25-30 kcal/kg (4979-5870 kcal/d) Current Nutrition Intake: Diet: Consistent CHO 2 Supplements: none Intake: no po intake recorded since admit 4 days ago Nutrition Support: None at this time Diet Experience & Nutrition History: Diet Education: Will monitor Pertinent Home Medications: Cinnamon, Jardiance, [place]-3, Prilosec, Pravachol, Aldactone, Mounjaro Nutrition Focused Physical [...] Note Madyson Machado 65 y.o. female CSN: [id number] Admission: 08/23/2025 9:41 PM Primary Problem: Fall from standing, initial encounter Additional Comments Per SGT provider, plan for neuropsych evaluation to determine decisional capacity. Pt has been clinically accepted to [facility] for short-term rehab and will require insurance auth prior to admission. SW s/w pt daughter this day who reports she is uncertain if pt family will be able to provide assistance at home and pt may require LTC in nursing facility. No LTC bed at [facility] this time and SW will need to [...] reduction at OSH Ortho following, appreciate recs [facility] NWB RUE F/u x-rays on 08/27, operative [...] x 5.7 x 11.2 cm solid/cystic areas, WA 8 - MIKE/BSO 08/08/2023: Mitotically active cellular [...] time. Participants in Care Family/Caregiver Present: No Patternmaker Bench: Not Applicable Presentation Oxygen Therapy: None (Room [...] Mobility Bed Mobility Exam: Scooting/Bridging Level of Sierra: Minimum assist (75% patient's effort) (seated scooting to EOB) Physical/Nonphysical Assist: Verbal Cues, Minimal cues Assistive Device: Bed rails (L UE; drawsheet) Bed Mobility Exam: Supine to Sit Level of Sierra: Minimum assist (75% patient's effort) Physical/Nonphysical Assist: Verbal Cues, Nonverbal cues (demo/gestures), HOB elevated, Additional assist utilized for safety, Moderate cues Assistive Device: Bed rails (L UE) Bed Mobility Exam: Sit to Supine Level of Sierra: Minimum assist (75% patient's effort) Physical/Nonphysical Assist: Verbal Cues, Nonverbal cues (demo/gestures), Additional assist utilized for safety, Moderate cues Assistive Device: Bed rails, Other (L UE) Transfers Transfer Exam: Sit to stand Level of Sierra: Minimum assist (75% patient's effort) Physical/Nonphysical Assist: Verbal Cues, Nonverbal cues (demo/gestures), Additional assist utilized for safety, Moderate cues Assistive Device: Hand held assist (LUE) Transfer Exam: Stand to Sit Level of Sierra: Minimum assist (75% patient's effort) Physical/Nonphysical Assist: Verbal Cues, Nonverbal cues (demo/gestures), Additional assist utilized for safety, Moderate cues Assistive Device: Hand held assist (LUE) Transfer Exam: Bed to Chair/Chair to Bed Level of Sierra: Minimum assist (75% patient's effort) Physical/Nonphysical Assist: Verbal Cues, Moderate cues, Nonverbal cues (demo/gestures), Additionalassist utilized for safety Type of Transfer: Sidesteps Assistive Device: Hand held assist (LUE) Toilet Transfer Level of Sierra: Minimum assist (75% patient's effort) Physical/Nonphysical Assist: [...] Min A. 08/24/25 2 weeks Written by Greta Doty on 08/27/25 at 3:15 PM. * Progress Notes - Concepcion Pagan - 08/27/2025 10:29 AM EDT Occupational Therapy Treatment Patient Name: Brigid Machado Today's Date: 08/27/2025 OT Discharge Recommendations: Subacute rehab Equipment Recommended: Defer to facility Total treatment time: 54 minutes Subjective Pt agreeable to participate in OT session. Participants in Care Family/Caregiver Present: No Patternmaker Bench: Not Applicable Presentation Oxygen Therapy: None (Room [...] Mobility Bed Mobility Exam: Scooting/Bridging Level of Sierra: Minimum assist (75% patient's effort) (seated scooting to EOB) Physical/Nonphysical Assist: Verbal Cues, Minimal cues Assistive Device: Bed rails, Other (drawsheet) Bed Mobility Exam: Supine to Sit Level of Sierra: Minimum assist (75% patient's effort) Physical/Nonphysical Assist: Verbal Cues, Nonverbal cues (demo/gestures), HOB elevated, Additional assist utilized for safety, Moderate cues Assistive Device: Bed rails Bed Mobility Exam: Sit to Supine Level of Sierra: Minimum assist (75% patient's effort) Physical/Nonphysical Assist: Verbal Cues, Nonverbal cues (demo/gestures), Additional assist utilized for safety, Moderate cues Assistive Device: Bed rails, Other (LE management) Transfers Transfer Exam: Sit to stand Level of Sierra: Minimum assist (75% patient's effort) Physical/Nonphysical Assist: Verbal Cues, Nonverbal cues (demo/gestures), Additional assist utilized for safety, Moderate cues Assistive Device: Hand held assist (LUE) Transfer Exam: Stand to Sit Level of Sierra: Minimum assist (75% patient's effort) Physical/Nonphysical Assist: Verbal Cues, Nonverbal cues (demo/gestures), Additional assist utilized for safety, Moderate cues Assistive Device: (LUE) Transfer Exam: Bed to Chair/Chair to Bed Level of Sierra: Minimum assist (75% patient's effort) Physical/Nonphysical Assist: Verbal Cues, Moderate cues, Nonverbal cues (demo/gestures), Additionalassist utilized for safety Type of Transfer: Sidesteps Assistive Device: Hand held assist (LUE) Toilet Transfer Level of Sierra: Minimum assist (75% patient's effort) Physical/Nonphysical Assist: [...] with min assist x 2 using LUE HORTICULTURAL FARM MANAGER. Pt additionally completed functional bed> bed side chair transfer in order to simulate bed > BSC transfer. Pt completed transfer with min assist x 2. Pearl bal and tactile cues provided for BLE management and sequencing. Pt additionally performed functional mobility to/from bathroom and functional toilet transfer with min assist. Pt perform shira-care/hygiene with CGA in unsupported on toilet and clothing management with maximal assist (gown managementand donning brief). Health Management Health Management interventions: [...] with min assist x 2 using LUE HORTICULTURAL FARM MANAGER. Therapist provided min-mod verbal cues for sequencing, [...] reduction at OSH Ortho following, appreciate recs [facility] NWB RUE F/u x-rays on 08/28, operative [...] Edited by: Jaida Shipman PA at 08/26/2025 5611 Relevant review of systems was obtained as [...] Admission: Yes Possible orthostatic fall Admit to [facility] 6 [facility] 08/24 Dizziness Present on Admission: Yes Questionable [...] x 5.7 x 11.2 cm solid/cystic areas, [place] 8 - MIKE/BSO 08/08/2023: Mitotically active cellular [...] Trendelenburg. Evans Russo MD Orthopaedic Surgery PGY1 [facility] Personal Pager: [phone] Orthopaedic Trauma Service Pager: [phone] Orthopaedic Recon/Spine/Foot and Ankle Service Pager: [phone] Cosigned by Ricki Clark MD at 08/26/2025 [...] reduction at OSH Ortho following, appreciate recs [facility] NWB RUE, anticipate non-op * Assessment & [...] PO diet, noN/V, abd pain. 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 Mobilizing as able. Pain well controlled. Denies [...] anesthesia Anxiety Arthritis Dental disease Depression Diabetes ([facility]) HL (hearing loss) Hyperlipidemia Hypertension Joint pain [...] Admission: Yes Possible orthostatic fall Admit to [facility] Tertiary 08/24 Dizziness Present on Admission: Yes [...] x 5.7 x 11.2 cm solid/cystic areas, [place] 8 - 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 Thickened endometrium PMB (postmenopausal bleeding) Plan: - Tertiary 08/25 complete - Ortho: non-op, ortho following for serial x-rays - Syncope: work up pending, ECHO, carotid Duplex - [facility] - Bowel regimen - PT/OT Dispo: Subacute rehab Edited by: Jaida Shipman PA at 08/25/2025 2035 QUINTIN Redman New diagnoses, need for imaging or specialty [...] stay, and so will be discharged to [facility] in [place]. DVT prophylaxis: None on discharge Procedures: None [...] 8:30AM @ Orthopaedic Surgery & Sports Medicine; [facility], [address], First Floor, Wing C, [address], [place] [address], # [phone]. SGT: BRANDON [facility] as needed; 0 [facility] First Floor, Wing D [address] [address], #[phone]. Questions or Concerns and Appointments If there are questions or concerns after discharge from the hospital, please call [phone] and ask for Blue Surgery Nurse. Working hours are Saturday - Saturday 8:00 AM to 4:00 PM. After hours, weekends and holidays please call [phone] and ask for the resident warehouse consultant for Blue Surgery. For appointments please call [phone]. Medication requests should be made between the hours of 9:00 AM to 3:00 PM Saturday thru Saturday. Please note that based upon recent changes to [place] law related to prescribing opioid pain medications, our providers will not provide refills on controlled medications after your hospital discharge following a major surgery or trauma. [place], [place] 201 KAR9:260. * Progress Notes - Kandace Briseno Clyde - 08/24/2025 2:00 PM EDT Case Management Adult Initial Progress Note Madyson Machado 65 y.o. female CSN: [id number] Admission: 08/23/2025 9:41 PM Primary Problem: Fall from standing, initial encounter Comber Setter reviewed chart to complete this Initial Case Management Assessment. PCP: Brad Hassan MD Emergency Contact: Extended Emergency Contact Information Primary Emergency Contact: SelwynKarolyn Mobile Relation: Sister Preferred language: Welsh Patternmaker Bench needed? No Secondary Emergency Contact: LATOSHA BANERJEE Mobile Relation: Daughter Patternmaker Bench needed? No Insurance: Primary Visit Coverage Payer Plan Sponsor Code Group Number Group Name HUMANA MEDICARE HUMANA MEDICARE Primary Visit Coverage Subscriber Subscriber ID Subscriber Name Subscriber N Subscriber Address [id number] Madyson Machado [id number] [place] [address] Patient information: Primary Caregiver: Self Support System: Immediate family Daily Living Activities: Functional Status: Minimum assistance Living Arrangements: Alone Type of Residence: Private residence [address] [place] [address] Current DME: Equipment Currently Used at Home: [...] Outpatient Dialysis Services: Living Will/Advance Directive/Power of Research Development Director /Guardian: Social Drivers of Health Food Insecurity: [...] Cage questionnaire guilty: 0 Cage questionnaire eye director of community center: 0 Cage Overall score: 0 Housing Stability: [...] file (09/02/2023) Utilities: Not At Risk (08/24/2025) [facility] Utilities Threatened with loss of utilities: [...] appropriate. Pt lives at home alone in [place]. Pt sister provides transportation to f/u appointments. [...] session. Participants in Care Family/Caregiver Present: No Patternmaker Bench: Not Applicable Presentation Oxygen Therapy: None (Room [...] Level of Mobility: Ambulatory- household only Mobility Sierra: Independent gait without device History of Falls: [...] Mobility Exam: Supine to Sit Level of Sierra: Maximum assist (25% patient's effort) Physical/Nonphysical Assist: Verbal Cues, Nonverbal cues (demo/gestures), HOB elevated, Maximal cues, Additional assist utilized for safety Assistive Device: Other (L hand held assist) Bed Mobility Exam: Sit to Supine Level of Sierra: Maximum assist (25% patient's effort) Physical/Nonphysical Assist: Verbal Cues, Nonverbal cues (demo/gestures), Maximal cues, Additional assist utilized for safety Assistive Device: Other (L hand held assist) Transfers Transfer Exam: Sit to stand Level of Sierra: Moderate assist (50% patient's effort) Physical/Nonphysical Assist: Verbal Cues, Nonverbal cues (demo/gestures), Maximal cues, Additional assist utilized for safety Assistive Device: Hand held assist (L UE) Transfer Exam: Stand to Sit Level of Sierra: Maximum assist (25% patient's effort) Physical/Nonphysical Assist: [...] staff. Standardized Assessments Standardized Assessments Standardized Assessments: [facility] 6-Clicks Mobility Assessment [facility] 6-Clicks Mobility Assessment Difficulty patient has turning [...] climbing 3-5 steps with a railing?: Unable [facility] 6-Clicks Mobility Assessment Total : 10 Assessment [...] session. Participants in Care Family/Caregiver Present: No Patternmaker Bench: Not Applicable Presentation Oxygen Therapy: None (Room [...] Level of Mobility: Ambulatory- household only Mobility Sierra: Independent gait without device History of Falls: [...] Mobility Bed Mobility Exam: Scooting/Bridging Level of Sierra: Maximum assist (25% patient's effort) (seated scooting to EOB) Physical/Nonphysical Assist: Verbal Cues, Minimal cues Assistive Device: Other (drawsheet) Bed Mobility Exam: Supine to Sit Level of Sierra: Maximum assist (25% patient's effort) Physical/Nonphysical Assist: Verbal Cues, Nonverbal cues (demo/gestures), HOB elevated, Maximal cues, Additional assist utilized for safety Assistive Device: Other (L hand held assist) Bed Mobility Exam: Sit to Supine Level of Sierra: Maximum assist (25% patient's effort) Physical/Nonphysical Assist: Verbal Cues, Nonverbal cues (demo/gestures), Maximal cues, Additional assist utilized for safety Assistive Device: Other (L HORTICULTURAL FARM MANAGER) Transfers Transfer Exam: Sit to stand Level of Sierra: Moderate assist (50% patient's effort) Physical/Nonphysical Assist: Verbal Cues, Nonverbal cues (demo/gestures), Maximal cues, Additional assist utilized for safety Assistive Device: Hand held assist (L UE) Transfer Exam: Stand to Sit Level of Sierra: Maximum assist (25% patient's effort) Physical/Nonphysical Assist: [...] with mod-max assist x 2 with LUE HORTICULTURAL FARM MANAGER. Maximal verbal and tactile cues provided for [...] anxiety with mobility this date. Standardized Assessments [facility] 6-Click Daily Activities Help from Other: Don/Doff Regular Lower Body Clothings: A lot Help From Other: Bathing: A lot Help From Other: Toileting: A lot Help From Other: Don/Doff Upper Body Clothings: A lot Help From Other: Grooming: Little Help From Other: Eating Meals: Little [facility] 6 Click - Daily Activities Score: 14 [...] past month or so. She used toattend religious weekly but no longer has the energy. [...] Tobacco: denies EtOH: denies Illicits: denies Lives: [facility], [facility] Employment: retired [employer] 14 [...] control Althea Devine MD Orthopaedic Surgery PGY-2 [facility] Orthopaedic Trauma Service Pager: [phone] Orthopaedic Recon/Spine/Foot and Ankle Service Pager: [phone] [1] Past Medical History: Diagnosis Date Adverse [...] reduction at OSH Ortho following, appreciate recs [facility] NWB RUE * Assessment & Plan Note [...] Date: 08/23/2025 Arrival Time: 2140 Referring Hospital: [facility] Injury Date: 08/22/2025 Injury Time: 0001 [...] inthe morning. Patient was subsequently brought to [facility] where she was found to have a right humeral neck fracture which was reportedly reduced at the OSH. She was then transferredto for trauma evaluation. Patient has had several episodes of dizziness over the course of the past few months with recent echocardiogram and carotid duplex is performed at [facility] earlier this month for syncope workup. [...] oz), last menstrual period 07/15/2013, SpO2 94%. [place] Coma Scale Best Eye Response: Spontaneous Best Verbal Response: Confused Best Motor Response: Follows commands [place] Coma Scale Score: 14 Intubated No Recent [...] [facility] Fall from standing, initial encounter [...] recent TTE and Carotid Duplex performed at [facility]. Non-Hospital Problems Pelvic mass Overview Addendum [...] x 5.7 x 11.2 cm solid/cystic areas, [place] 8 - MIKE/BSO 08/08/2023: Mitotically active cellular [...] and oriented to person, place, and time. Hiram Coma Scale Score: 14 ED Course & [...] None Disposition Admit Admitting/Attending Physician: NIKOLE MANN [[id number]] Provider Care Team: SGT FLOOR 6 [[id number]] [...] POCT glucose meter (09/01/2025 12:05 PM EDT) [facility] POCT Glucose 224(H) 74 - 99 mg/dL [...] Comment 09/01/2025 12:06 PM EDT HEALTHCARE LAB Jewelry Model Maker ID Nathalia Senior 12:06 PM EDT [facility] Device ID [id number] 09/01/2025 12:06 PM EDT [facility] Specimen Type POC Capillary 09/01/2025 12:06 PM EDT [facility] Blood Capillary blood specimen / Unknown 09/01/2025 12:05 PM EDT 09/01/2025 12:06 PM EDT Juan Otero MD LAB POINT OF CARE TEST DOCKED DEVICE UNSOLICITED RESULTS Final Result Performing Organization Address City/State/[facility] Co de Phone Number HEALTHCARE LAB [address] [place] [address] * (ABNORMAL) POCT glucose meter (09/01/2025 8:21 AM EDT) [facility] POCT Glucose 159(H) 74 - 99 mg/dL [...] 09/01/2025 8:23 AM EDT [facility] Jewelry Model Maker ID Edmund Carr 09/01/2025 8:23 AM EDT HEALTHCARE LAB Device ID [id number] 09/01/2025 8:23 AM EDT HEALTHCARE LAB Specimen Type POC Capillary 09/01/2025 8:23 AM EDT [facility] Blood Capillary blood specimen / Unknown 09/01/2025 8:21 AM EDT 09/01/2025 8:23 AM EDT us Juan Otero MD LAB POINT OF CARE TEST DOCKED DEVICE UNSOLICITED RESULTS Final Result Performing Organization Address City/[facility] Co de Phone Number HEALTHCARE LAB [address] [place] [address] * (ABNORMAL) POCT glucose meter (08/31/2025 8:30 PM EDT) [facility] POCT Glucose 144(H) 74 - 99 mg/dL [...] Comment 08/31/2025 8:32 PM EDT HEALTHCARE LAB Jewelry Model Maker ID Michelle Rogers 08/31/2025 8:32 PM EDT HEALTHCARE LAB Device ID [id number] 08/31/2025 8:32 PM EDT [facility]ALTH[facility]ARE LAB Specimen Type POC Capillary 08/31/2025 8:32 PM EDT [facility] Blood Capillary blood specimen / Unknown 08/31/2025 8:30 PM EDT 08/31/2025 8:32 PM EDT us Izzy Griffith MD LAB POINT OF CARE TEST DOCKED DEVICE UNSOLICITED RESULTS Final Result Performing Organization Address City/[facility]/ZIP Co de Phone Number HEALTHCARE LAB [address] [place] [address] * (ABNORMAL) POCT glucose meter (08/31/2025 5:36 [...] Comment 08/31/2025 5:38 PM EDT HEALTHCARE LAB Jewelry Model Maker ID Lake Burns 08/31/2025 5:38 PM EDT HEALTHCARE LAB Device ID [id number] 08/31/2025 5:38 PM EDT [facility]ALTH[facility]ARE LAB Specimen Type POC Capillary 08/31/2025 5:38 PM EDT [facility]ARE [facility] Blood Capillary blood specimen / Unknown 08/31/2025 5:36 PM EDT 08/31/2025 5:38 PM EDT Izzy Griffith MD LAB POINT OF CARE TEST DOCKED DEVICE UNSOLICITED RESULTS Final Result [facility] [address] [place] [address] * (ABNORMAL) POCT glucose meter (08/31/2025 12:21 PM EDT) [facility] POCT Glucose 142(H) 74 - 99 mg/dL [...] 08/31/2025 12:23 PM EDT [facility] Jewelry Model Maker ID Lake Burns 08/31/2025 12:23 PM EDT HEALTHCARE LAB Device ID [id number] 08/31/2025 12:23 PM EDT HEALTHCARE LAB Specimen Type POC Capillary 08/31/2025 12:23 PM EDT [facility]ALTH[facility]ARE LAB Blood Capillary blood specimen / Unknown 08/31/2025 12:21 PM EDT 08/31/2025 12:23 PM EDT us Izzy Griffith MD LAB POINT OF CARE TEST DOCKED DEVICE UNSOLICITED RESULTS Final Result Performing Organization Address [facility] Co de Phone Number [facility] [address] [place] [address] * Troponin T, High Sensitivity, 2 Hour, Plasma (08/31/2025 11:58 AM EDT) Troponin T, High Sensitivity, 2 Hour 10 <14 ng/L 08/31/2025 12:[address] [facility] Blood Venous blood specimen / Unknown Venipuncture / Unknown 08/31/2025 11:58 AM EDT 08/31/2025 12:04 PM EDT Rodney Dwyer MATHEMATICAL SCIENTIST LAB BLOOD ORDERABLES Final Result Performing Organization Address [facility] de Phone Number [facility] [address] [place] [address] * XR Chest 1 View (08/31/2025 10:22 [...] neck fracture is again noted. Procedure Note Deyvi Martinez MD - 08/31/2025 CLINICAL INDICATION: possible [...] on 08/31/2025 11:12 AM us Rodney Dwyer MATHEMATICAL SCIENTIST IMG XR PROCEDURES Final Re sult * ECG Adult (08/31/2025 9:44 AM EDT) EKG DIAGNOSIS CLASS Abnormal MUSE ECG Ventricular Rate 94 BPM MUSE ECG Atrial Rate 94 BPM MUSE ECG GA Interval 136 ms MUSE ECG QRSD Interval 84 ms MUSE ECG QT Interval 380 ms MUSE ECG QTC Interval 475 ms MUSE ECG P [place] 10 degrees MUSE ECG R [place] 13 degrees MUSE ECG T Wave [place] 144 degrees MUSE ECG Diagnosis Poor data [...] EDT 08/31/2025 2:11 PM EDT Rodney Dwyer MATHEMATICAL SCIENTIST ECG ORDERABLES Final Resu lt MUSE ECG * Troponin T, High Sensitivity, 0 Hour Plasma, Reflex to 2 Hour (08/31/2025 9:43 AM EDT) Troponin T, High Sensitivity, 0 Hour 12 <14 ng/L 08/31/2025 11:45 AM EDT [facility] Blood Venous blood specimen / Unknown Venipuncture / Unknown 08/31/2025 9:43 AM EDT 08/31/2025 11:04 AM EDT Rodney Dwyer APRN LAB BLOOD ORDERABLES Final Result Performing Organization Address City/[facility]/ZIP Co de Phone Number [facility] [address] [place] [address] * (ABNORMAL) Comprehensive metabolic panel (08/31/2025 9:43 AM EDT) Glucose, Plasma 137(H) 74 - 99 mg/dL 08/31/2025 11:45 AM EDT [facility] BUN, Plasma 9 8 - 23 mg/dL 08/31/2025 11:45 AM EDT [facility] Creatinine, Plasma 0.38(L) 0.60 - 1.10 mg/dL 08/31/2025 11:45 AM EDT [facility] BUN/Creatinine Ratio 24 08/31/2025 11:45 AM EDT [facility] Sodium, Plasma 137 136 - 145 mmol/L 08/31/2025 11:45 AM EDT [facility] Potassium, Plasma 3.5(L) 3.6 - 4.9 mmol/L 08/31/2025 11:45 AM EDT [facility] Chloride, Plasma 100 97 - 107 mmol/L 08/31/2025 11:45 AM EDT [facility] CO2, Plasma 20(L) 22 - 29 mmol/L 08/31/2025 11:45 AM EDT [facility] Anion Gap 17(H) 6 - 16 mmol/L 08/31/2025 11:45 AM EDT [facility] Total Calcium, Plasma 8.9 8.9 - 10.2 mg/dL 08/31/2025 11:45 AM EDT [facility] Total Protein 6.7 6.3 - 7.9 g/dL 08/31/2025 11:45 AM EDT [facility] Albumin, Plasma 3.4(L) 3.5 - 5.2 g/dL 08/31/2025 11:45 AM EDT [facility] AST, Plasma 18 10 - 35 U/L 08/31/2025 11:45 AM EDT [facility] Comment:Hemolyzed, result ma y be falsely increased. ALT, Plasma 20 10 - 35 U/L 08/31/2025 11:45 AM EDT [facility] Alkaline Phosphatase, Plasma 60 46 - 142 U/L 08/31/2025 11:45 AM EDT [facility] Total Bilirubin, Plasma 0.7 0.2 - 1.1 mg/dL 08/31/2025 11:45 AM EDT [facility] eGFRcr 110.7 mL/min/1.7 3m*2 08/31/2025 11:45 AM EDT [facility] Comment:Reported eGFRcr in m L/min/1.73m2 is based the CKD-EPI 2020 equation that does not use a race coefficient. Blood Venous blood specimen / Unknown Venipuncture / Unknown 08/31/2025 9:43 AM EDT 08/31/2025 11:04 AM EDT us Rodney Dwyer MATHEMATICAL SCIENTIST LAB BLOOD ORDERABLES Final Result [facility] [address] [place] [address] * (ABNORMAL) CBC and differential (08/31/2025 9:43 AM EDT) WBC Count 8.37 3.70 - 10.30 10*3/uL LAB HEMATOLOGY METHOD 08/31/2025 11:27 AM EDT [facility] RBC Count 3.52(L) 3.90 - 5.20 10*6/uL LAB HEMATOLOGY METHOD 08/31/2025 11:27 AM EDT [facility] HGB 10.9(L) 11.2 - 15.7 g/dL LAB HEMATOLOGY METHOD 08/31/2025 11:27 AM EDT [facility] HCT 33.0(L) 34.0 - 45.0 % LAB HEMATOLOGY METHOD 08/31/2025 11:27 AM EDT [facility] Platelet Count 393(H) 155 - 369 10*3/uL LAB HEMATOLOGY METHOD 08/31/2025 11:27 AM EDT [facility] MCV 94 79 - 98 fL LAB HEMATOLOGY METHOD 08/31/2025 11:27 AM EDT [facility] MCH 31.0 26.0 - 32.0 pg LAB HEMATOLOGY METHOD 08/31/2025 11:27 AM EDT [facility] MCHC 33.0 30.7 - 35.5 g/dL LAB HEMATOLOGY METHOD 08/31/2025 11:27 AM EDT [facility] RDW 12.4 11.5 - 14.5 % LAB HEMATOLOGY METHOD 08/31/2025 11:27 AM EDT [facility] MPV 9.1 8.8 - 12.5 fL LAB HEMATOLOGY METHOD 08/31/2025 11:27 AM EDT [facility] nRBC 0.0 <=0.0 per 100 WBCs LAB HEMATOLOGY METHOD 08/31/2025 11:27 AM EDT [facility] Differential Type Automated LAB HEMATOLOGY METHOD 08/31/2025 11:27 AM EDT [facility] Neutrophils % 68 % LAB HEMATOLOGY METHOD 08/31/2025 11:27 AM EDT [facility] Lymphocytes % 19 % LAB HEMATOLOGY METHOD 08/31/2025 11:27 AM EDT [facility] Monocytes % 11 % LAB HEMATOLOGY METHOD 08/31/2025 11:27 AM EDT [facility] Eosinophils % 1 % LAB HEMATOLOGY METHOD 08/31/2025 11:27 AM EDT [facility] Basophils % 0 % LAB HEMATOLOGY METHOD 08/31/2025 11:27 AM EDT [facility] Immature Granulocytes % 1 % LAB HEMATOLOGY METHOD 08/31/2025 11:27 AM EDT [facility] Neutrophils Absolute 5.77 1.60 - 6.10 10*3/uL LAB HEMATOLOGY METHOD 08/31/2025 11:27 AM EDT [facility] Lymphocytes Absolute 1.56 1.20 - 3.90 10*3/uL LAB HEMATOLOGY METHOD 08/31/2025 11:27 AM EDT [facility] Monocytes Absolute 0.89 0.30 - 0.90 10*3/uL LAB HEMATOLOGY METHOD 08/31/2025 11:27 AM EDT [facility] Eosinophils Absolute 0.08 0.00 - 0.50 10*3/uL LAB HEMATOLOGY METHOD 08/31/2025 11:27 AM EDT [facility] Basophils Absolute 0.02 0.00 - 0.10 10*3/uL LAB HEMATOLOGY METHOD 08/31/2025 11:27 AM EDT [facility] Immature Granulocytes Absolute 0.05 0.00 - 0.06 10*3/uL LAB HEMATOLOGY METHOD 08/31/2025 11:27 AM EDT [facility] Blood Venous blood specimen / Unknown Venipuncture / Unknown 08/31/2025 9:43 AM EDT 08/31/2025 11:17 AM EDT [facility]ative [facility] - 08/31/2025 11:27 AM EDT Therapeutic decision making should be based on absolute values, rather than percentages. Rodney Dwyer APRN LAB BLOOD ORDERABLES Final Result [facility] [address] [place] [address] * (ABNORMAL) POCT glucose meter (08/31/2025 8:54 AM EDT) [facility] POCT Glucose 154(H) 74 - 99 mg/dL [...] 08/31/2025 8:56 AM EDT [facility] Jewelry Model Maker ID Lake Burns 08/31/2025 8:56 AM EDT HEALTHCARE LAB Device ID [id number] 08/31/2025 8:56 AM EDT HEALTHCARE LAB Specimen Type POC Capillary 08/31/2025 8:56 AM EDT [facility] Blood Capillary blood specimen / Unknown 08/31/2025 8:54 AM EDT 08/31/2025 8:56 AM EDT Izzy Griffith MD LAB POINT OF CARE TEST DOCKED DEVICE UNSOLICITED RESULTS Final Result Performing Organization Address City/[facility] Co de Phone Number [facility] [address] [place] [address] * (ABNORMAL) POCT glucose meter (08/30/2025 8:16 [...] Comment 08/30/2025 8:18 PM EDT [facility]ALTH[facility]ARE [facility] Jewelry Model Maker ID Yusef Branch 08/30/2025 8:18 PM EDT [facility]ALTH[facility]ARE LAB Device ID [id number] 08/30/2025 8:18 PM EDT [facility]ALTH[facility]ARE LAB Specimen Type POC Capillary 08/30/2025 8:18 PM EDT [facility] Blood Capillary blood specimen / Unknown 08/30/2025 8:16 PM EDT 08/30/2025 8:18 PM EDT us Izzy Griffith MD LAB POINT OF CARE TEST DOCKED DEVICE UNSOLICITED RESULTS Final Result Performing Organization Address City/[facility]/ZIP Co de Phone Number HEALTHCARE LAB [address] [place] [address] * (ABNORMAL) POCT glucose meter (08/30/2025 4:49 [...] 08/30/2025 4:51 PM EDT [facility] Jewelry Model Maker ID Nathalia Senior 4:51 PM EDT HEALTHCARE LAB Device ID [id number] 08/30/2025 4:51 PM EDT HEALTH[facility]ARE LAB Specimen Type POC Capillary 08/30/2025 4:51 PM EDT [facility]ALTH[facility]ARE LAB Blood Capillary blood specimen / Unknown 08/30/2025 4:49 PM EDT 08/30/2025 4:51 PM EDT Izzy Griffith MD LAB POINT OF CARE TEST DOCKED DEVICE UNSOLICITED RESULTS Final Result [facility] [address] [place] [address] * (ABNORMAL) POCT glucose meter (08/30/2025 12:24 PM EDT) [facility] POCT Glucose 177(H) 74 - 99 mg/dL [...] 08/30/2025 12:25 PM EDT [facility] Jewelry Model Maker ID Edmund Carr 08/30/2025 12:25 PM EDT [facility] Device ID [id number] 08/30/2025 12:25 PM EDT [facility] Specimen Type POC Capillary 08/30/2025 12:25 PM EDT [facility] Blood Capillary blood specimen / Unknown 08/30/2025 12:24 PM EDT 08/30/2025 12:25 PM EDT Izzy Griffith MD LAB POINT OF CARE TEST DOCKED DEVICE UNSOLICITED RESULTS Final Result Performing Organization Address [facility] de Phone Number [facility] [address] [place] [address] * (ABNORMAL) POCT glucose meter (08/30/2025 7:38 AM EDT) Pathologist [facility] POCT Glucose 159(H) 74 - 99 mg/dL [...] Comment 08/30/2025 7:39 AM EDT [facility] Jewelry Model Maker ID Nathalia Senior 7:39 AM EDT [facility]ALTH[facility]ARE [facility] Device ID [id number] 08/30/2025 7:39 AM EDT [facility] Specimen Type POC Capillary 08/30/2025 7:39 AM EDT [facility] Blood Capillary blood specimen / Unknown 08/30/2025 7:38 AM EDT 08/30/2025 7:39 AM EDT Ester Vivas MD LAB POINT OF CARE TEST DOCKED DEVICE UNSOLICITED RESULTS Final Result Performing Organization Address City/[facility] Co de Phone Number [facility] [address] [place] [address] * (ABNORMAL) POCT glucose meter (08/29/2025 7:42 PM EDT) Pathologist [facility] POCT Glucose 158(H) 74 - 99 mg/dL [...] 08/29/2025 7:44 PM EDT [facility] Jewelry Model Maker ID Yusef Branch 08/29/2025 7:44 PM EDT [facility] Device ID [id number] 08/29/2025 7:44 PM EDT [facility] Specimen Type POC Capillary 08/29/2025 7:44 PM EDT [facility] Blood Capillary blood specimen / Unknown 08/29/2025 7:42 PM EDT 08/29/2025 7:44 PM EDT us Ester Vivas MD LAB POINT OF CARE TEST DOCKED DEVICE UNSOLICITED RESULTS Final Result Performing Organization Address City/[facility] Co de Phone Number [facility] [address] [place] [address] * (ABNORMAL) POCT glucose meter (08/29/2025 5:26 PM EDT) [facility] POCT Glucose 180(H) 74 - 99 mg/dL [...] Comment 08/29/2025 5:28 PM EDT [facility] Jewelry Model Maker ID Edmund Carr 08/29/2025 5:28 PM EDT [facility] Device ID [id number] 08/29/2025 5:28 PM EDT [facility] Specimen Type POC Capillary 08/29/2025 5:28 PM EDT [facility] Blood Capillary blood specimen / Unknown 08/29/2025 5:26 PM EDT 08/29/2025 5:28 PM EDT us Ester Vivas MD LAB POINT OF CARE TEST DOCKED DEVICE UNSOLICITED RESULTS Final Result [facility] [address] [place] [address] * (ABNORMAL) POCT glucose meter (08/29/2025 12:38 PM EDT) [facility] POCT Glucose 168(H) 74 - 99 mg/dL [...] 08/29/2025 12:40 PM EDT [facility] Jewelry Model Maker ID Bruno Edmund 08/29/2025 12:40 PM EDT [facility] Device ID [id number] 08/29/2025 12:40 PM EDT [facility] Specimen Type POC Capillary 08/29/2025 12:40 PM EDT [facility] Blood Capillary blood specimen / Unknown 08/29/2025 12:38 PM EDT 08/29/2025 12:40 PM EDT Ester Vivas MD LAB POINT OF CARE TEST DOCKED DEVICE UNSOLICITED RESULTS Final Result Performing Organization Address [facility] Co de Phone Number [facility] [address] [place] [address] * (ABNORMAL) POCT glucose meter (08/29/2025 8:49 AM EDT) [facility] POCT Glucose 140(H) 74 - 99 mg/dL [...] 08/29/2025 8:50 AM EDT [facility] Jewelry Model Maker ID Bruno Edmund 08/29/2025 8:50 AM EDT [facility] Device ID [id number] 08/29/2025 8:50 AM EDT [facility] Specimen Type POC Capillary 08/29/2025 8:50 AM EDT [facility] Blood Capillary blood specimen / Unknown 08/29/2025 8:49 AM EDT 08/29/2025 8:50 AM EDT Ester Vivas MD LAB POINT OF CARE TEST DOCKED DEVICE UNSOLICITED RESULTS Final Result Performing Organization Address [facility] de Phone Number [facility] [address] [place] [address] * (ABNORMAL) POCT glucose meter (08/28/2025 8:43 [...] Comment 08/28/2025 8:48 PM EDT [facility] Jewelry Model Maker ID Talon Mcmullen 08/28/2025 8:48 PM EDT [facility] Device ID [id number] 08/28/2025 8:48 PM EDT [facility] Specimen Type POC Capillary 08/28/2025 8:48 PM EDT [facility] Blood Capillary blood specimen / Unknown 08/28/2025 8:43 PM EDT 08/28/2025 8:48 PM EDT Ester Vivas MD LAB POINT OF CARE TEST DOCKED DEVICE UNSOLICITED RESULTS Final Result Performing Organization Address City/[facility] Co de Phone Number [facility] [address] [place] [address] * (ABNORMAL) POCT glucose meter (08/28/2025 5:15 [...] 08/28/2025 5:17 PM EDT [facility] Jewelry Model Maker ID Vivian Keller 08/28/2025 5:17 PM EDT [facility] Device ID [id number] 08/28/2025 5:17 PM EDT [facility] Specimen Type POC Capillary 08/28/2025 5:17 PM EDT [facility] Blood Capillary blood specimen / Unknown 08/28/2025 5:15 PM EDT 08/28/2025 5:17 PM EDT Ester Vivas MD LAB POINT OF CARE TEST DOCKED DEVICE UNSOLICITED RESULTS Final Result [facility] [address] [place] [address] * (ABNORMAL) POCT glucose meter (08/28/2025 1:05 PM EDT) [facility] POCT Glucose 207(H) 74 - 99 mg/dL [...] 08/28/2025 1:06 PM EDT [facility] Jewelry Model Maker ID Kathy Taylor 1:06 PM EDT [facility] Device ID [id number] 08/28/2025 1:06 PM EDT [facility] Specimen Type POC Capillary 08/28/2025 1:06 PM EDT [facility] Blood Capillary blood specimen / Unknown 08/28/2025 1:05 PM EDT 08/28/2025 1:06 PM EDT Ester Vivas MD LAB POINT OF CARE TEST DOCKED DEVICE UNSOLICITED RESULTS Final Result Performing Organization Address [facility] de Phone Number [facility] [address] [place] [address] * (ABNORMAL) POCT glucose meter (08/28/2025 9:18 [...] Comment 08/28/2025 9:20 AM EDT [facility] Jewelry Model Maker ID Kathy Taylor 9:20 AM EDT [facility]ALTH[facility]ARE LAB Device ID [id number] 08/28/2025 9:20 AM EDT [facility] Specimen Type POC Capillary 08/28/2025 9:20 AM EDT [facility] Blood Capillary blood specimen / Unknown 08/28/2025 9:18 AM EDT 08/28/2025 9:20 AM EDT Ester Vivas MD LAB POINT OF CARE TEST DOCKED DEVICE UNSOLICITED RESULTS Final Result Performing Organization Address City/[facility] Co de Phone Number [facility] [address] [place] [address] * (ABNORMAL) POCT glucose meter (08/28/2025 6:26 [...] Comment 08/28/2025 6:28 AM EDT [facility] Jewelry Model Maker ID Uri Mustafa 6:28 AM EDT [facility] Device ID [id number] 08/28/2025 6:28 AM EDT [facility] Specimen Type POC Capillary 08/28/2025 6:28 AM EDT [facility] Blood Capillary blood specimen / Unknown 08/28/2025 6:26 AM EDT 08/28/2025 6:28 AM EDT Juan Otero MD LAB POINT OF CARE TEST DOCKED DEVICE UNSOLICITED RESULTS Final Result Performing Organization Address [facility] Co de Phone Number [facility] [address] [place] [address] * (ABNORMAL) POCT glucose meter (08/27/2025 9:06 [...] Comment 08/27/2025 9:09 PM EDT [facility] Jewelry Model Maker ID Uri Mustafa 9:09 PM EDT [facility] Device ID [id number] 08/27/2025 9:09 PM EDT [facility] Specimen Type POC Capillary 08/27/2025 9:09 PM EDT [facility] Blood Capillary blood specimen / Unknown 08/27/2025 9:06 PM EDT 08/27/2025 9:09 PM EDT Juan Otero MD LAB POINT OF CARE TEST DOCKED DEVICE UNSOLICITED RESULTS Final Result Performing Organization Address City/[facility] Co de Phone Number [facility] [address] [place] [address] * (ABNORMAL) POCT glucose meter (08/27/2025 5:11 PM EDT) [facility] POCT Glucose 126(H) 74 - 99 mg/dL [...] Comment 08/27/2025 5:13 PM EDT [facility] Jewelry Model Maker ID Vivian Keller 08/27/2025 5:13 PM EDT [facility] LAB Device ID [id number] 08/27/2025 5:13 PM EDT [facility] Specimen Type POC Capillary 08/27/2025 5:13 PM EDT [facility] Blood Capillary blood specimen / Unknown 08/27/2025 5:11 PM EDT 08/27/2025 5:13 PM EDT Juan Otero MD LAB POINT OF CARE TEST DOCKED DEVICE UNSOLICITED RESULTS Final Result Performing Organization Address City/State/[facility] Co de Phone Number [facility] [address] [place] [address] * (ABNORMAL) POCT glucose meter (08/27/2025 12:25 PM EDT) [facility] POCT Glucose 222(H) 74 - 99 mg/dL [...] 08/27/2025 12:26 PM EDT [facility] Jewelry Model Maker ID Vivian Keller 08/27/2025 12:26 PM EDT [facility] Device ID [id number] 08/27/2025 12:26 PM EDT [facility] Specimen Type POC Capillary 08/27/2025 12:26 PM EDT [facility] Blood Capillary blood specimen / Unknown 08/27/2025 12:25 PM EDT 08/27/2025 12:26 PM EDT Juan Otero MD LAB POINT OF CARE TEST DOCKED DEVICE UNSOLICITED RESULTS Final Result Performing Organization Address City/[facility]/ZIP Co de Phone Number [facility] [address] [place] [address] * (ABNORMAL) POCT glucose meter (08/27/2025 8:39 [...] Comment 08/27/2025 8:50 AM EDT [facility] Jewelry Model Maker ID Erma Montero 025 8:50 AM EDT [facility]ALTH[facility]ARE [facility] Device ID [id number] 08/27/2025 8:50 AM EDT [facility] Specimen Type POC Capillary 08/27/2025 8:50 AM EDT [facility] Blood Capillary blood specimen / Unknown 08/27/2025 8:39 AM EDT 08/27/2025 8:50 AM EDT us Juan Otero MD LAB POINT OF CARE TEST DOCKED DEVICE UNSOLICITED RESULTS Final Result [facility] [address] [place] [address] * XR Shoulder Right 1 View (08/27/2025 [...] - 99 mg/dL 08/26/2025 7:43 PM EDT [facility] Comment:Accuracy of a glucos e result [...] 08/26/2025 7:43 PM EDT [facility] Jewelry Model Maker ID Tonya Lane 08/26/20 7:43 PM EDT [facility] Device ID [id number] 08/26/2025 7:43 PM EDT [facility] Specimen Type POC Capillary 08/26/2025 7:43 PM EDT [facility] Blood Capillary blood specimen / Unknown 08/26/2025 7:42 PM EDT 08/26/2025 7:43 PM EDT Juan Otero MD LAB POINT OF CARE TEST DOCKED DEVICE UNSOLICITED RESULTS Final Result Performing Organization Address City/State/[facility] Co de Phone Number [facility] [address] [place] [address] * (ABNORMAL) POCT glucose meter (08/26/2025 5:04 PM EDT) [facility] POCT Glucose 138(H) 74 - 99 mg/dL [...] 08/26/2025 5:07 PM EDT [facility] Jewelry Model Maker ID Dory Albert 5:07 PM EDT [facility] Device ID [id number] 08/26/2025 5:07 PM EDT [facility] Specimen Type POC Capillary 08/26/2025 5:07 PM EDT [facility] Blood Capillary blood specimen / Unknown 08/26/2025 5:04 PM EDT 08/26/2025 5:07 PM EDT us Juan Otero MD LAB POINT OF CARE TEST DOCKED DEVICE UNSOLICITED RESULTS Final Result [facility] [address] [place] [address] * (ABNORMAL) Urinalysis with reflex microscopic (Culture NOT Included) (08/26/2025 3:24 PM EDT) Color, Urine Yellow LAB URINALYSIS - AUTOMATED METHOD 08/26/2025 3:54 PM EDT [facility] Clarity, Urine Clear LAB URINALYSIS - AUTOMATED METHOD 08/26/2025 3:54 PM EDT [facility] Spec [place], Urine >1.030(H) 1.005 - 1.030 LAB URINALYSIS - AUTOMATED METHOD 08/26/2025 3:54 PM EDT [facility] pH, Urine 6.5 5.0 - 8.0 LAB URINALYSIS - AUTOMATED METHOD 08/26/2025 3:54 PM EDT [facility] Protein, Urine 30(A) Negative mg/dL LAB URINALYSIS - AUTOMATED METHOD 08/26/2025 3:54 PM EDT [facility] Glucose, Urine >=1000(A) Negative mg/dL LAB URINALYSIS - AUTOMATED METHOD 08/26/2025 3:54 PM EDT [facility] Ketones, Urine 40(A) Negative mg/dL LAB URINALYSIS - AUTOMATED METHOD 08/26/2025 3:54 PM EDT [facility] Blood, Urine Negative Negative LAB URINALYSIS - AUTOMATED METHOD 08/26/2025 3:54 PM EDT [facility] Bilirubin, Urine Negative Negative LAB URINALYSIS - AUTOMATED METHOD 08/26/2025 3:54 PM EDT [facility] Urobilinogen, Urine 0.2 0.2 to 1.0 mg/dL LAB URINALYSIS - AUTOMATED METHOD 08/26/2025 3:54 PM EDT [facility] Leukocytes, Urine Negative Negative LAB URINALYSIS - AUTOMATED METHOD 08/26/2025 3:54 PM EDT [facility] Nitrite, Urine Negative Negative LAB URINALYSIS - AUTOMATED METHOD 08/26/2025 3:54 PM EDT [facility] Urine Urine specimen obtained by clean catch procedure / Unknown Non-blood Collection / Unknown 08/26/2025 3:24 PM EDT 08/26/2025 3:44 PM EDT us Jaida RIBEIRO LAB URINE ORDERABLES Ivone ivy Result [facility] [address] [place] [address] * ECHO, ADULT TRANSTHORACIC COMPLETE W/ CONTRAST [...] is no recent study available for direct [id number] comparison. Left Ventricle Based on the 2D [...] is no recent study available for direct [id number]-[id number] comparison. us Nikole Mann MD CV ECHO PROCEDURES Final Result * (ABNORMAL) POCT glucose meter (08/26/2025 12:40 PM EDT) POCT Glucose 221(H) 74 - 99 mg/dL 08/26/2025 12:42 PM EDT [facility] Comment:Accuracy of a glucos e result [...] testing. Comment 08/26/2025 12:42 PM EDT [facility] Jewelry Model Maker ID Tiffanie Suarez 025 12:42 PM EDT [facility] Device ID [id number] 08/26/2025 12:42 PM EDT [facility] Specimen Type POC Capillary 08/26/2025 12:42 PM EDT [facility] Blood Capillary blood specimen / Unknown 08/26/2025 12:40 PM EDT 08/26/2025 12:42 PM EDT us Juan Otero MD LAB POINT OF CARE TEST DOCKED DEVICE UNSOLICITED RESULTS Final Result Performing Organization Address City/[facility] Co de Phone Number [facility] [address] [place] [address] * (ABNORMAL) POCT glucose meter (08/26/2025 8:15 AM EDT) [facility] POCT Glucose 167(H) 74 - 99 mg/dL [...] Comment 08/26/2025 8:17 AM EDT [facility] Jewelry Model Maker ID Tiffanie Suarez 025 8:17 AM EDT [facility] Device ID [id number] 08/26/2025 8:17 AM EDT [facility] Specimen Type POC Capillary 08/26/2025 8:17 AM EDT [facility] Blood Capillary blood specimen / Unknown 08/26/2025 8:15 AM EDT 08/26/2025 8:17 AM EDT us Juan Otero MD LAB POINT OF CARE TEST DOCKED DEVICE UNSOLICITED RESULTS Final Result Performing Organization Address City/[facility] Co de Phone Number [facility] [address] [place] [address] * (ABNORMAL) POCT glucose meter (08/26/2025 4:27 [...] 08/26/2025 4:28 AM EDT [facility] Jewelry Model Maker ID Tonya Lane 08/26/20 4:28 AM EDT [facility] Device ID [id number] 08/26/2025 4:28 AM EDT [facility] Specimen Type POC Capillary 08/26/2025 4:28 AM EDT [facility] Blood Capillary blood specimen / Unknown 08/26/2025 4:27 AM EDT 08/26/2025 4:28 AM EDT Juan Otero MD LAB POINT OF CARE TEST DOCKED DEVICE UNSOLICITED RESULTS Final Result [facility] [address] [place] [address] * (ABNORMAL) POCT glucose meter (08/25/2025 8:36 PM EDT) [facility] POCT Glucose 255(H) 74 - 99 mg/dL [...] 08/25/2025 8:38 PM EDT [facility] Jewelry Model Maker ID Tonya Lane 08/25/20 8:38 PM EDT [facility] Device ID [id number] 08/25/2025 8:38 PM EDT [facility] Specimen Type POC Capillary 08/25/2025 8:38 PM EDT [facility] Blood Capillary blood specimen / Unknown 08/25/2025 8:36 PM EDT 08/25/2025 8:38 PM EDT Juan Otero MD LAB POINT OF CARE TEST DOCKED DEVICE UNSOLICITED RESULTS Final Result Performing Organization Address [facility] de Phone Number [facility] [address] [place] [address] * (ABNORMAL) POCT glucose meter (08/25/2025 4:51 PM EDT) Pathologist [facility] POCT Glucose 145(H) 74 - 99 mg/dL [...] Comment 08/25/2025 4:52 PM EDT [facility] Jewelry Model Maker ID Tiffanie Suarez 025 4:52 PM EDT [facility]ALTH[facility] Device ID [id number] 08/25/2025 4:52 PM EDT [facility] Specimen Type POC Capillary 08/25/2025 4:52 PM EDT [facility] Blood Capillary blood specimen / Unknown 08/25/2025 4:51 PM EDT 08/25/2025 4:52 PM EDT Juan Otero MD LAB POINT OF CARE TEST DOCKED DEVICE UNSOLICITED RESULTS Final Result Performing Organization Address City/[facility] Co de Phone Number [facility] [address] [place] [address] * (ABNORMAL) POCT glucose meter (08/25/2025 12:38 PM EDT) Pathologist [facility] POCT Glucose 113(H) 74 - 99 mg/dL [...] Comment 08/25/2025 12:40 PM EDT [facility] Jewelry Model Maker ID Tiffanie Suarez 025 12:40 PM EDT [facility] Device ID [id number] 08/25/2025 12:40 PM EDT [facility] Specimen Type POC Capillary 08/25/2025 12:40 PM EDT [facility] Blood Capillary blood specimen / Unknown 08/25/2025 12:38 PM EDT 08/25/2025 12:40 PM EDT us Juan Otero MD LAB POINT OF CARE TEST DOCKED DEVICE UNSOLICITED RESULTS Final Result Performing Organization Address City/[facility]/ZIP Co de Phone Number [facility] [address] [place] [address] * (ABNORMAL) POCT glucose meter (08/25/2025 8:13 AM EDT) [facility] Signature POCT Glucose 239(H) 74 - [...] Comment 08/25/2025 8:15 AM EDT [facility] Jewelry Model Maker ID Tiffanie Suarez 025 8:15 AM EDT [facility] Device ID [id number] 08/25/2025 8:15 AM EDT [facility] Specimen Type POC Capillary 08/25/2025 8:15 AM EDT [facility] Blood Capillary blood specimen / Unknown 08/25/2025 8:13 AM EDT 08/25/2025 8:15 AM EDT us Juan Otero MD LAB POINT OF CARE TEST DOCKED DEVICE UNSOLICITED RESULTS Final Result [facility] [address] [place] [address] * (ABNORMAL) POCT glucose meter (08/24/2025 8:36 PM EDT) [facility] POCT Glucose 134(H) 74 - 99 mg/dL [...] Comment 08/24/2025 8:38 PM EDT [facility] Jewelry Model Maker ID Farooq Ruiz 025 8:38 PM EDT [facility] Device ID [id number] 08/24/2025 8:38 PM EDT [facility] Specimen Type POC Capillary 08/24/2025 8:38 PM EDT [facility] Blood Capillary blood specimen / Unknown 08/24/2025 8:36 PM EDT 08/24/2025 8:38 PM EDT Nikole Mann MD LAB POINT OF CARE TE ST DOCKED DEVICE UNSOLICITED RESULTS Final Result Performing Organization Address City/[facility]/ZIP Co de Phone Number [facility] [address] [place] [address] * (ABNORMAL) POCT glucose meter (08/24/2025 4:54 PM EDT) [facility] POCT Glucose 157(H) 74 - 99 mg/dL [...] 08/24/2025 4:56 PM EDT [facility] Jewelry Model Maker ID Ramona Bennett 08/24/2025 4:56 PM EDT [facility] Device ID [id number] 08/24/2025 4:56 PM EDT [facility] Specimen Type POC Capillary 08/24/2025 4:56 PM EDT [facility] Blood Capillary blood specimen / Unknown 08/24/2025 4:54 PM EDT 08/24/2025 4:56 PM EDT Nikole Mann MD LAB POINT OF CARE TE ST DOCKED DEVICE UNSOLICITED RESULTS Final Result [facility] [address] [place] [address] * VAS US Carotid Duplex Bilateral (08/24/2025 [...] Comment 08/24/2025 12:15 PM EDT [facility] Jewelry Model Maker ID Ramona Bennett 08/24/2025 12:15 PM EDT [facility]ALTH[facility] LAB Device ID [id number] 08/24/2025 12:15 PM EDT [facility] Specimen Type POC Capillary 08/24/2025 12:15 PM EDT [facility] Blood Capillary blood specimen / Unknown 08/24/2025 12:10 PM EDT 08/24/2025 12:15 PM EDT Nikole Mann MD LAB POINT OF CARE TE ST DOCKED DEVICE UNSOLICITED RESULTS Final Result [facility] [address] [place] [address] * (ABNORMAL) Hemoglobin A1c (08/24/2025 3:59 AM EDT) Hemoglobin A1c 6.0(H) <5.7 % 08/24/2025 5:13 PM EDT [facility] Blood Venous blood specimen / Unknown Venipuncture / Unknown 08/24/2025 3:59 AM EDT 08/24/2025 4:14 AM EDT Narrative [facility] - 08/24/2025 5:13 PM EDT HA1C Interpretive Data: Diagnosis of Diabetes: Diabetic > or = 6.5% Pre-diabetic 5.7 to 6.4% Non-diabetic < or = 5.6% Glycemic Targets for Type I and Type II Diabetics: Non- Adults <7.0% Adults <6.0% Children and Adolescents <7.5% Source: [place] [employer]. Standards of medical care in diabetes,2017. Diabetes Care.2017:40 (suppl 1):S1-S135. us Brigid RIBEIRO LAB BLOOD ORDERABLES Final Result Performing Organization Address City/[facility]/ZIP Co de Phone Number [facility] [address] [place] [address] * Phosphorus (08/24/2025 3:59 AM EDT) Phosphorus, Plasma 4.1 2.5 - 4.5 mg/dL 08/24/2025 5:01 AM EDT [facility] Blood Venous blood specimen / Unknown Venipuncture / Unknown 08/24/2025 3:59 AM EDT 08/24/2025 4:22 AM EDT Kwesi Yang MD LAB BLOOD ORDERABLES Final R esult Performing Organization Address [facility] Co de Phone Number [facility] [address] [place] [address] * Magnesium, Plasma (08/24/2025 3:59 AM EDT) Magnesium, Plasma 2.2 1.9 - 2.4 mg/dL 08/24/2025 5:01 AM EDT [facility] Blood Venous blood specimen / Unknown Venipuncture / Unknown 08/24/2025 3:59 AM EDT 08/24/2025 4:22 AM EDT Kwesi Yang MD LAB BLOOD ORDERABLES Final R esult Performing Organization Address City/[facility] Co de Phone Number [facility] [address] [place] [address] * (ABNORMAL) Basic metabolic panel (08/24/2025 3:59 AM EDT) Glucose, Plasma 167(H) 74 - 99 mg/dL 08/24/2025 5:01 AM EDT [facility] BUN, Plasma 29(H) 8 - 23 mg/dL 08/24/2025 5:01 AM EDT [facility] Creatinine, Plasma 0.86 0.60 - 1.10 mg/dL 08/24/2025 5:01 AM EDT [facility] BUN/Creatinine Ratio 34 08/24/2025 5:01 AM EDT [facility] Sodium, Plasma 141 136 - 145 mmol/L 08/24/2025 5:01 AM EDT [facility] Potassium, Plasma 4.2 3.6 - 4.9 mmol/L 08/24/2025 5:01 AM EDT [facility] Chloride, Plasma 107 97 - 107 mmol/L 08/24/2025 5:01 AM EDT [facility] CO2, Plasma 19(L) 22 - 29 mmol/L 08/24/2025 5:01 AM EDT [facility] Anion Gap 15 6 - 16 mmol/L 08/24/2025 5:01 AM EDT [facility] Total Calcium, Plasma 9.0 8.9 - 10.2 mg/dL 08/24/2025 5:01 AM EDT [facility] eGFRcr 74.6 mL/min/1.7 3m*2 08/24/2025 5:01 AM EDT [facility] Comment:Reported eGFRcr in m L/min/1.73m2 is based the CKD-EPI 2020 equation that does not use a race coefficient. Blood Venous blood specimen / Unknown Venipuncture / Unknown 08/24/2025 3:59 AM EDT 08/24/2025 4:22 AM EDT us Kwesi Yang MD LAB BLOOD ORDERABLES Final R esult [facility] [address] [place] [address] * (ABNORMAL) CBC W/O Differential (08/24/2025 3:59 AM EDT) WBC Count 13.28(H) 3.70 - 10.30 10*3/uL LAB HEMATOLOGY METHOD 08/24/2025 4:18 AM EDT [facility] RBC Count 3.56(L) 3.90 - 5.20 10*6/uL LAB HEMATOLOGY METHOD 08/24/2025 4:18 AM EDT [facility] HGB 11.0(L) 11.2 - 15.7 g/dL LAB HEMATOLOGY METHOD 08/24/2025 4:18 AM EDT [facility] HCT 33.3(L) 34.0 - 45.0 % LAB HEMATOLOGY METHOD 08/24/2025 4:18 AM EDT [facility] Platelet Count 225 155 - 369 10*3/uL LAB HEMATOLOGY METHOD 08/24/2025 4:18 AM EDT [facility] MCV 94 79 - 98 fL LAB HEMATOLOGY METHOD 08/24/2025 4:18 AM EDT [facility] MCH 30.9 26.0 - 32.0 pg LAB HEMATOLOGY METHOD 08/24/2025 4:18 AM EDT [facility] MCHC 33.0 30.7 - 35.5 g/dL LAB HEMATOLOGY METHOD 08/24/2025 4:18 AM EDT [facility] RDW 12.5 11.5 - 14.5 % LAB HEMATOLOGY METHOD 08/24/2025 4:18 AM EDT [facility] MPV 9.3 8.8 - 12.5 fL LAB HEMATOLOGY METHOD 08/24/2025 4:18 AM EDT [facility] nRBC 0.0 <=0.0 per 100 WBCs LAB HEMATOLOGY METHOD 08/24/2025 4:18 AM EDT [facility] Blood Venous blood specimen / Unknown Venipuncture / Unknown 08/24/2025 3:59 AM EDT 08/24/2025 4:14 AM EDT us Kwesi Yang MD LAB BLOOD ORDERABLES Final R esult [facility] [address] [place] [address] * CT Shoulder Right wo IV Contrast [...] lesser humeral tuberosity, humeral head and neck. [id number] osteoarthritis the glenohumeral joint. Moderate osteoarthritis of [...] lesser humeral tuberosity, humeral head and neck. Asob-eg-mihhtdxk osteoarthritis the glenohumeral joint. Moderateosteoarthritis of the [...] ECG Atrial Rate 101 BPM MUSE ECG GA Interval 200 ms MUSE ECG QRSD Interval 96 ms MUSE ECG QT Interval 518 ms MUSE ECG QTC Interval 671 ms MUSE ECG P [place] 66 degrees MUSE ECG R [place] 27 degrees MUSE ECG T Wave [place] 129 degrees MUSE ECG Diagnosis Poor data [...] Until Sat08/24/25 at 1611, Routine, severe pain, Moderate Severe Pain with CPOT score of 3 or greater OR FLACC PAINAD NPASS NRS Solano-Mauro Faces score of 4 or greater OR DVPRS NIPS score of 5 or greater Given 08/24/2025 9: 37 AM EDT 5 mg oxyCODONE (Roxicodone) immediate release tablet 5 mg 5 mg, Oral, Every 4 hours PRN, Starting on Sat08/24/25 at 1610, Until Sat08/27/25 at 0656, Routine, severe pain, Moderate Severe Pain with CPOT score of 3 or greater OR FLACC PAINAD NPASS NRS Solano-Mauro Faces score of 4 or greater OR DVPRS NIPS score of 5 or greater Given 08/27/2025 5: 05 AM EDT 5 mg Given 08/26/2025 7:55 PM EDT 5 mg Given 08/26/2025 1:24 AM EDT 5 mg oxyCODONE (Roxicodone) immediate release tablet 5 mg 5 mg, Oral, Every 4 hours PRN, Starting on Sat08/27/25 at 0656, Until Sat09/01/25 at 1735, Routine, Moderate Severe Pain with CPOT score of 3 or greater OR FLACC PAINAD NPASS NRS Solano-Mauro Faces score of 4 or greater OR DVPRS NIPS score of 5 or greater Given 08/28/2025 8:53 PM EDT 5 mg [...] Yumiko Mays RN)2357 (Given - Provider: Gissell Hummel RN) 0532 (Given - Provider: Gissell Hummel RN)1225 (Given - Provider: Cheryl Dial, THEODORE) buPROPion XL (Wellbutrin XL) 24 hr tablet 300 mg 300 mg, Oral, Every morning, First dose on Sat08/26/25 at 0900, Until Discontinued 0845 (Given - Provider: Yumiko Mays RN) 0900 (Not Given - Provider: Yumiko Mays RN - Reason: Hold for condition: must add comment - Comment: Patient started choking on pills. Provider notified.) 0903 (Given - Provider: Cheryl Dial RN) busPIRone [...] RN)2118 (Given - Provider: Bety Paz, RN) 0851 (Not Given - Provider: Yumiko [...] conflic of care)1242 (Given - Provider: Yumiko Mays, RN)1755 (Given - Provider: Yumiko Mays RN) 0900 (Given - Provider: Yumiko Mays RN)1259 (Not Given - Provider: Yumiko Mays RN - Reason: Order parameters not met)174 (Given - Provider: Yumiko Mays RN) 0904 (Given - Provider: Cheryl Dial RN)1225 (Given - Provider: Cheryl Dial RN)1730 (Canceled Entry - Provider: Automatic Discharge Provider - Comment: Automatically canceled at discontinue of medication order) insulin lispro (Admelog) injection - Correction - Nighttime Dose 0-3 Units, Subcutaneous, 2 times nightly (2100 & 0300), First dose on Sat08/24/25 at 2100, Until Discontinued, Routine 0222 (Not Given - Provider: Bety Paz RN [...] patient started choking on pills. provider notified.) 0904 (Given - Provider: Cheryl Dial RN) OLANZapine [...] Routine 0845 (Given - Provider: Yumiko Mays RN)212 (Not Given - Provider: Bety Paz RN [...] Discontinued, Routine 0117 (Given - Provider: Bety Paz, RN)1441 (Given - Provider: Yumiko Mays, RN) 0223 (Given - Provider: Bety Paz, RN)1530 (Given - Provider: Yumiko Mays, RN) 0200 (Canceled Entry - Provider: Gissell Hummel, RN)1301 (Given - Provider: Cheryl Dial, THEODORE) PRN Medication Order 08/30/2025 08/31/2025 09/01/2025 dextrose [...] Routine, anxiety 2119 (Given - Provider: Bety Paz, RN) 0137 (Given - Provider: Gissell Hummel, THEODORE) morphine PF 4 mg 4 mg, Intravenous, Every 4 hours PRN, Starting on Sat08/31/25 at 0920, Until Sat09/01/25 at 1735, Routine, severe pain 0928 (Given - Provider: Yumiko Mays, THEODORE)2053 (Given - Provider: Gissell Hummel, THEODORE) oxyCODONE [...] notified. Wasted in Pyxis with THEODORE Lagunas) 0137 (Given - Provider: Gissell Hummel, THEODORE) oxyCODONE (Roxicodone) immediate release tablet 5 mg(Linked Group 4) 5 mg, Oral, Every 4 hours PRN, Starting on Sat08/27/25 at 0656, Until Sat09/01/25 at 1735, Routine, Moderate Severe Pain with CPOT score of 3 or greater OR FLACC PAINAD NPASS NRS Solano-Mauro Faces score of 4 or greater OR DVPRS NIPS score of 5 or greater 0605 (See Alternative - Provider: Bety Paz RN)1242 (See Alternative - Provider: Yumiko Mays RN)175 (See Alternative - Provider: Yumiko Mays RN)222 (See Alternative - Provider: Bety Paz RN) 0851 (See Alternative - Provider: Yumiko Mays, RN) 0137 (See Alternative - Provider: Gissell Hummel, THEODORE) [...] at 0656, Until Sat09/01/25 at 1735, Routine, Moderate Severe Pain with CPOT score of 3 or greater OR FLACC PAINAD NPASS NRS Solano-Mauro Faces score of 4 or greater OR DVPRS NIPS score of 5 or greater Or oxyCODONE (Roxicodone) immediate release tablet 10 [...] documented as of this encounter Care Teams Trader Relationship Specialty Start Date End Date Brad Hassan MD [address] [place] [address] [place] [id number] PCP - General Internal Medicine 08/08/23 Greta Simpson DO [facility] [id number] Obstetrics and Gynecology 07/03/23 documented as of this encounter
--- OUTSIDE RECORDS SUMMARY | 2025-10-25 09:50 | XMS_ITS | Encounter Summary ---
Author Organization [facility] Address [address] [place] [address] Care Team Providers Care Electronics Design Engineer Name Role Phone Greta Simpson DO Unavailable [phone] Brad Hassan MD Primary Care Provider [phone] Encounter Details Date Type Department Care Team [...] time in the past 12 m [facility], were you homeless or living in a chcf (including now)? No 08/24/2025 [facility] Utilities Answer Date Recorded In the [...] drink first t fabian in the morning (EYE-CENTRAL OFFICE MECHANIC) to steady your nerves or to get [...] documented as of this encounter Care Teams Electronics Design Engineer Relationship Specialty Start Date End Date Brad Hassan MD [address] [place] [address] [place] [address] PCP - General Internal Medicine 08/08/23 Greta Simpson DO [facility] [address] Obstetrics and Gynecology 07/03/23 documented as of this encounter
--- OUTSIDE RECORDS SUMMARY | 2025-10-25 09:50 | XMS_ITS | Encounter Summary ---
Author Organization [facility] Address [address] [place] [address] Care Team Providers Care Final Block Press Operator Name Role Phone Greta Simpson DO Unavailable Brad Hassan MD Primary Care Provider [phone] Encounter Details Date Type Department Care Team [...] any time in the past 12 m [facility], were you homeless or living in a usp (including now)? No 08/24/2025 [facility] Utilities Answer Date Recorded In the past [...] drink first t fabian in the morning (EYE-FIBRE CEMENT MOULDER) to steady your nerves or to get [...] documented as of this encounter Care Teams Final Block Press Operator Relationship Specialty Start Date End Date Brad Hassan MD [address] [place] [address] [place] [address] PCP - General Internal Medicine 08/08/23 Greta Simpson DO [facility] [address] Obstetrics and Gynecology 07/03/23 documented as of this encounter
--- OUTSIDE RECORDS SUMMARY | 2025-10-25 09:51 | XMS_ITS | Encounter Summary ---
Author Organization Healthcare Address [address] [place] [address] Care Team Providers Care Director Of Quality Improvement Name Role Phone Greta Simpson DO Unavailable [phone] Brad Hassan MD Primary Care Provider [phone] Encounter Details Date Type Department Care Team (Late st Contact Info) Description 08/23/2025 Orders Only External Location [address] [place] [id number] Provider, External Social History Tobacco Use Types [...] in a assisted (including now)? No 08/24/2025 [facility] Utilities Answer Date Recorded In the past 12 months has th e [email or web address], gas, oil, or water company threatened to [...] first t fabian in the morning (EYE-BUSINESS DEVELOPMENT ASSOCIATE) to steady your nerves or to [...] documented as of this encounter Care Teams Director Of Quality Improvement Relationship Specialty Start Date End Date Brad Hassan MD [address] [place] [address] [place] [address] PCP - General Internal Medicine 08/08/23 Greta Simpson DO [facility] G4 [address] Obstetrics and Gynecology 07/03/23 documented as of this encounter
--- OUTSIDE RECORDS SUMMARY | 2025-10-25 09:51 | XMS_ITS | Encounter Summary ---
Author Organization Healthcare Address [address] [place] [address] Care Team Providers Care Lighting Equipment Operator Name Role Phone Greta Simpson DO Unavailable [phone] Brad Hassan MD Primary Care Provider [phone] Encounter Details Date Type Department Care Team (Late st Contact Info) Description 08/23/2025 Orders Only External Location [address] [place] [id number] Provider, External Social History Tobacco Use Types [...] in a custodial (including now)? No 08/24/2025 [facility] Utilities Answer Date Recorded In the past 12 months has th e [employer], gas, oil, or water company threatened to [...] drink first t fabian in the morning (EYE-CAN LINE OPERATOR) to steady your nerves or to [...] documented as of this encounter Care Teams Lighting Equipment Operator Relationship Specialty Start Date End Date Brad Hassan MD [address] [place] [address] [place] [address] PCP - General Internal Medicine 08/08/23 Greta Simpson DO [facility] G4 [address] Obstetrics and Gynecology 07/03/23 documented as of this encounter
--- OUTSIDE RECORDS SUMMARY | 2025-10-25 09:51 | XMS_ITS | Clinical Summary ---
Author Organization [facility] Address [address] [place] [address] Care Team Providers Care Reefer Engineer Name Role Phone Greta Simpson DO Unavailable [phone] Brad Hassan MD Primary Care Provider [phone] Allergies Active Allergy Reactions Criticality Noted Date [...] S/p reduction at [facility] following, appreciate [facility] F/u x-rays on 08/28, operative plans pending Assessment & Plan (08/25/2025 1:51 PM EDT): R humeral neck fx S/p reduction at [facility] following, appreciate [facility], anticipate non-op Assessment & Plan (08/24/2025 2:19 AM EDT): R humeral neck fx S/p reduction at [facility] following, appreciate [facility] RUE Dizziness 08/24/2025 Assessment & [...] EDT Hospital Encounter [facility] Inpatient [address] [place] [address] Flaquito Lerma MD Davidson, MD Agus Packer, MD Shanna Leal, MD Jhonny Rodriguez, MD Sangeetha Jolly, MD Nacho Syed, Izzy Arora MD Fall, initial encounter (Primary Dx); Fx humeral neck, right, closed, initial encounter; Delirium Discharge Disposition: [facility] Facility 08/23/2025 Travel 08/23/2025 Orders Only External Location [address] [place] [address] Julianna Copeland, DO 08/23/2025 Orders Only External Location [address] [place] [address] Julianna Copeland, DO 08/23/2025 Orders Only External Location [address] [place] [address] Julianna Copeland, DO 08/23/2025 Orders Only External Location [address] [place] [address] Provider, External 08/23/2025 Orders Only External Location [address] [place] [address] Provider, External 08/23/2025 Orders Only External Location [address] [place] [address] Provider, External 08/23/2025 Orders Only External Location [address] [place] [address] Provider, External 08/23/2025 Orders Only External Location [address] [place] [address] Provider, External 08/23/2025 Orders Only External Location [address] [place] [address] Provider, External 08/23/2025 Orders Only External Location [address] [place] [address] Provider, External 08/23/2025 Orders Only External Location [address] [place] [address] Provider, External 08/23/2025 Orders Only External Location [address] [place] [address] Provider, External 08/23/2025 Orders Only External Location [address] [place] [address] Provider, External 08/23/2025 Orders Only External Location [address] [place] [address] Provider, External 08/23/2025 Orders Only External Location [address] [place] [address] Provider, External 08/23/2025 Orders Only External Location [address] [place] [address] Provider, External 08/23/2025 Orders Only External Location [address] [place] [address] Julianna Copeland, DO 08/23/2025 Orders Only External Location [address] [place] [address] Provider, External 08/23/2025 Orders Only External Location [address] [place] [address] Provider, External 08/23/2025 Orders Only External Location [address] [place] [address] Provider, External 08/23/2025 Orders Only External Location [address] [place] [address] Provider, External 08/23/2025 Orders Only External Location [address] [place] [address] Provider, External from Last 3 [...] in a longterm (including now)? No 08/24/2025 [facility] Utilities Answer Date Recorded In the [...] drink first t fabian in the morning (EYE-HIGHWAY ADMINISTRATIVE ENGINEER) to steady your nerves or to [...] of 2) 2009 [facility]-Depression Screening 09/02/2024 09/02/2023 [id number] Vaccine (1 - season) 2025 [facility]-Influenza Vaccine [...] Comment 09/01/2025 12:06 PM EDT [facility] Superintendent Tests ID Nathalia Senior 12:06 PM EDT [facility] Device ID [id number] 09/01/2025 12:06 PM EDT [facility] Specimen Type POC Capillary 09/01/2025 12:06 PM EDT [facility] Blood Capillary blood specimen / Unknown 09/01/2025 12:05 PM EDT 09/01/2025 12:06 PM EDT us Juan Otero MD LAB POINT OF CARE TEST DOCKED DEVICE UNSOLICITED RESULTS Final Result [facility] [address] [place] [address] * Troponin T, High Sensitivity, 2 Hour, Plasma (08/31/2025 11:58 AM EDT) Troponin T, High Sensitivity, 2 Hour 10 <14 ng/L 08/31/2025 12:[address] [facility] Blood Venous blood specimen / Unknown Venipuncture / Unknown 08/31/2025 11:58 AM EDT 08/31/2025 12:04 PM EDT us Rodney Dwyer APRN LAB BLOOD ORDERABLES Final Result [facility] [address] [place] [address] * XR Chest 1 View (08/31/2025 10:22 [...] on 08/31/2025 11:12 AM us Rodney Dwyer DOCKWORKER IMG XR PROCEDURES Final Re sult * [...] QTC Interval 475 ms MUSE ECG P Osgood 10 degrees MUSE ECG R [place] 13 degrees MUSE ECG T Wave [place] 144 degrees MUSE ECG Diagnosis Poor data quality, interpretation may be adversely affected MUSE ECG Diagnosis Normal sinus rhythm with sinus arrhythmia MUSE ECG Diagnosis ST & T wave abnormality, consider anterolateral ischemia MUSE ECG Diagnosis Abnormal ECG MUSE ECG Diagnosis MUSE ECG Diagnosis Confirmed by Quique Peacock ([id number]) on 08/31/2025 2:11:20 PM MUSE ECG 08/31/2025 9:44 AM EDT 08/31/2025 2:11 PM EDT Rodney Dwyer APRN ECG ORDERABLES Final Resu lt MUSE ECG * Troponin T, High Sensitivity, 0 Hour Plasma, Reflex to 2 Hour (08/31/2025 9:43 AM EDT) [facility] Troponin T, High Sensitivity, 0 Hour 12 <14 ng/L 08/31/2025 11:[address] [facility] Blood Venous blood specimen / Unknown Venipuncture / Unknown 08/31/2025 9:43 AM EDT 08/31/2025 11:04 AM EDT Rodney Dwyer APRN LAB BLOOD ORDERABLES Final Result [facility] [address] [place] [address] * (ABNORMAL) CBC and differential (08/31/2025 9:43 AM EDT) [facility] WBC Count 8.37 3.70 - 10.30 10*3/uL LAB HEMATOLOGY METHOD 08/31/2025 11:[address] [facility] RBC Count 3.52(L) 3.90 - 5.20 10*6/uL LAB HEMATOLOGY METHOD 08/31/2025 11:[address] [facility] HGB 10.9(L) 11.2 - 15.7 g/dL LAB HEMATOLOGY METHOD 08/31/2025 11:[address] [facility] HCT 33.0(L) 34.0 - 45.0 % LAB HEMATOLOGY METHOD 08/31/2025 11:[address] [facility] Platelet Count 393(H) 155 - 369 10*3/uL LAB HEMATOLOGY METHOD 08/31/2025 11:[address] [facility] MCV 94 79 - 98 fL LAB HEMATOLOGY METHOD 08/31/2025 11:[address] [facility] MCH 31.0 26.0 - 32.0 pg LAB HEMATOLOGY METHOD 08/31/2025 11:[address] [facility] MCHC 33.0 30.7 - 35.5 g/dL LAB HEMATOLOGY METHOD 08/31/2025 11:[address] [facility] RDW 12.4 11.5 - 14.5 % LAB HEMATOLOGY METHOD 08/31/2025 11:[address] [facility] MPV 9.1 8.8 - 12.5 fL LAB HEMATOLOGY METHOD 08/31/2025 11:[address] [facility] nRBC 0.0 <=0.0 per 100 WBCs LAB HEMATOLOGY METHOD 08/31/2025 11:[address] [facility] Differential Type Automated LAB HEMATOLOGY METHOD 08/31/2025 11:[address] [facility] Neutrophils % 68 % LAB HEMATOLOGY METHOD 08/31/2025 11:[address] [facility] Lymphocytes % 19 % LAB HEMATOLOGY METHOD 08/31/2025 11:[address] [facility] Monocytes % 11 % LAB HEMATOLOGY METHOD 08/31/2025 11:[address] [facility] Eosinophils % 1 % LAB HEMATOLOGY METHOD 08/31/2025 11:[address] [facility] Basophils % 0 % LAB HEMATOLOGY METHOD 08/31/2025 11:[address] [facility] Immature Granulocytes % 1 % LAB HEMATOLOGY METHOD 08/31/2025 11:[address] [facility] Neutrophils Absolute 5.77 1.60 - 6.10 10*3/uL LAB HEMATOLOGY METHOD 08/31/2025 11:[address] [facility] Lymphocytes Absolute 1.56 1.20 - 3.90 10*3/uL LAB HEMATOLOGY METHOD 08/31/2025 11:[address] [facility] Monocytes Absolute 0.89 0.30 - 0.90 10*3/uL LAB HEMATOLOGY METHOD 08/31/2025 11:[address] [facility] Eosinophils Absolute 0.08 0.00 - 0.50 10*3/uL LAB HEMATOLOGY METHOD 08/31/2025 11:[address] [facility] Basophils Absolute 0.02 0.00 - 0.10 10*3/uL LAB HEMATOLOGY METHOD 08/31/2025 11:[address] [facility] Immature Granulocytes Absolute 0.05 0.00 - 0.06 10*3/uL LAB HEMATOLOGY METHOD 08/31/2025 11:[address] [facility] Blood Venous blood specimen / Unknown Venipuncture / Unknown 08/31/2025 9:43 AM EDT 08/31/2025 11:[address] [facility] - 08/31/2025 11:27 AM EDT Therapeutic decision making should be based on absolute values, rather than percentages. us Rodney Dwyer APRN LAB BLOOD ORDERABLES Final Result [facility] [address] [place] [address] * (ABNORMAL) Comprehensive metabolic panel (08/31/2025 9:43 AM EDT) Glucose, Plasma 137(H) 74 - 99 mg/dL 08/31/2025 11:[address] [facility] BUN, Plasma 9 8 - 23 mg/dL 08/31/2025 11:[address] [facility] Creatinine, Plasma 0.38(L) 0.60 - 1.10 mg/dL 08/31/2025 11:[address] [facility] BUN/Creatinine Ratio 24 08/31/2025 11:[address] [facility] Sodium, Plasma 137 136 - 145 mmol/L 08/31/2025 11:[address] [facility] Potassium, Plasma 3.5(L) 3.6 - 4.9 mmol/L 08/31/2025 11:[address] [facility] Chloride, Plasma 100 97 - 107 mmol/L 08/31/2025 11:[address] [facility] CO2, Plasma 20(L) 22 - 29 mmol/L 08/31/2025 11:[address] [facility] Anion Gap 17(H) 6 - 16 mmol/L 08/31/2025 11:[address] [facility] Total Calcium, Plasma 8.9 8.9 - 10.2 mg/dL 08/31/2025 11:[address] [facility] Total Protein 6.7 6.3 - 7.9 g/dL 08/31/2025 11:[address] [facility] Albumin, Plasma 3.4(L) 3.5 - 5.2 g/dL 08/31/2025 11:[address] [facility] AST, Plasma 18 10 - 35 U/L 08/31/2025 11:[address] [facility] Comment:Hemolyzed, result ma y be falsely increased. ALT, Plasma 20 10 - 35 U/L 08/31/2025 11:[address] [facility] Alkaline Phosphatase, Plasma 60 46 - 142 U/L 08/31/2025 11:[address] [facility] Total Bilirubin, Plasma 0.7 0.2 - 1.1 mg/dL 08/31/2025 11:[address] [facility] eGFRcr 110.7 mL/min/1.7 3m*2 08/31/2025 11:[address] [facility] Comment:Reported eGFRcr in m L/min/1.73m2 is based the CKD-EPI 2020 equation that does not use a race coefficient. Blood Venous blood specimen / Unknown Venipuncture / Unknown 08/31/2025 9:43 AM EDT 08/31/2025 11:04 AM EDT us Rodney Dwyer DOCKWORKER LAB BLOOD ORDERABLES Final Result [facility] [address] [place] [address] * XR Shoulder Right 1 View (08/27/2025 6:29 AM EDT) Anatomical Region Laterality Modality Upper Extremities, Shoulder Right Digi sarah Radiography Impressions 08/27/2025 8:01 AM EDT Redemonstration of comminuted humeral head neck fracture in grossly unchanged alignment compared to prior. CRITICAL RESULT: No. COMMUNICATION: Per this written report. Drafted by Shon Patton on 08/27/2025 8:00 AM Final report signed by Sohn Patton on 08/27/2025 8:01 AM Narrative 08/27/2025 [...] - AUTOMATED METHOD 08/26/2025 3:[address] [facility] Clarity, Urine Clear LAB URINALYSIS - AUTOMATED METHOD 08/26/2025 3:[address] [facility] Spec [place], Urine >1.030(H) 1.005 - 1.030 LAB URINALYSIS - AUTOMATED METHOD 08/26/2025 3:[address] [facility] pH, Urine 6.5 5.0 - 8.0 LAB URINALYSIS - AUTOMATED METHOD 08/26/2025 3:[address] [facility] Protein, Urine 30(A) Negative mg/dL LAB URINALYSIS - AUTOMATED METHOD 08/26/2025 3:[address] [facility] Glucose, Urine >=1000(A) Negative mg/dL LAB URINALYSIS - AUTOMATED METHOD 08/26/2025 3:[address] [facility] Ketones, Urine 40(A) Negative mg/dL LAB URINALYSIS - AUTOMATED METHOD 08/26/2025 3:[address] [facility] Blood, Urine Negative Negative LAB URINALYSIS - AUTOMATED METHOD 08/26/2025 3:[address] [facility] Bilirubin, Urine Negative Negative LAB URINALYSIS - AUTOMATED METHOD 08/26/2025 3:[address] [facility] Urobilinogen, Urine 0.2 0.2 to 1.0 mg/dL LAB URINALYSIS - AUTOMATED METHOD 08/26/2025 3:[address] [facility] Leukocytes, Urine Negative Negative LAB URINALYSIS - AUTOMATED METHOD 08/26/2025 3:[address] [facility] Nitrite, Urine Negative Negative LAB URINALYSIS - AUTOMATED METHOD 08/26/2025 3:[address] [facility] Urine Urine specimen obtained by clean catch procedure / Unknown Non-blood Collection / Unknown 08/26/2025 3:24 PM EDT 08/26/2025 3:44 PM EDT us Jaida RIBEIRO LAB URINE ORDERABLES Ivone ivy Result [facility] [address] [place] [address] * ECHO, ADULT TRANSTHORACIC COMPLETE W/ CONTRAST [...] is no recent study available for direct uxlo-gr-jive comparison. Left Ventricle Based on the 2D [...] is no recent study available for direct gvxi-bd-edry comparison. us Zander Goldsmith MD CV ECHO [...] LAB HEMATOLOGY METHOD 08/24/2025 4:[address] [facility] RBC Count 3.56(L) 3.90 - 5.20 10*6/uL LAB HEMATOLOGY METHOD 08/24/2025 4:[address] [facility] HGB 11.0(L) 11.2 - 15.7 g/dL LAB HEMATOLOGY METHOD 08/24/2025 4:[address] [facility] HCT 33.3(L) 34.0 - 45.0 % LAB HEMATOLOGY METHOD 08/24/2025 4:[address] [facility] Platelet Count 225 155 - 369 10*3/uL LAB HEMATOLOGY METHOD 08/24/2025 4:[address] [facility] MCV 94 79 - 98 fL LAB HEMATOLOGY METHOD 08/24/2025 4:[address] [facility] MCH 30.9 26.0 - 32.0 pg LAB HEMATOLOGY METHOD 08/24/2025 4:[address] [facility] MCHC 33.0 30.7 - 35.5 g/dL LAB HEMATOLOGY METHOD 08/24/2025 4:[address] [facility] RDW 12.5 11.5 - 14.5 % LAB HEMATOLOGY METHOD 08/24/2025 4:[address] [facility] MPV 9.3 8.8 - 12.5 fL LAB HEMATOLOGY METHOD 08/24/2025 4:[address] [facility] nRBC 0.0 <=0.0 per 100 WBCs LAB HEMATOLOGY METHOD 08/24/2025 4:[address] [facility] Blood Venous blood specimen / Unknown Venipuncture / Unknown 08/24/2025 3:59 AM EDT 08/24/2025 4:14 AM EDT us Kwesi Yang MD LAB BLOOD ORDERABLES Final R esult [facility] [address] [place] [address] * Phosphorus (08/24/2025 3:59 AM EDT) Phosphorus, Plasma 4.1 2.5 - 4.5 mg/dL 08/24/2025 5:[address] [facility] Blood Venous blood specimen / Unknown Venipuncture / Unknown 08/24/2025 3:59 AM EDT 08/24/2025 4:22 AM EDT us Kwesi Yang MD LAB BLOOD ORDERABLES Final R esult Performing Organization Address [facility] Co de Phone Number [facility] [address] [place] [address] * Magnesium, Plasma (08/24/2025 3:59 AM EDT) Magnesium, Plasma 2.2 1.9 - 2.4 mg/dL 08/24/2025 5:[address] [facility] Blood Venous blood specimen / Unknown Venipuncture / Unknown 08/24/2025 3:59 AM EDT 08/24/2025 4:22 AM EDT us Kwesi Yang MD LAB BLOOD ORDERABLES Final R esult Performing Organization Address City/[facility]/ZIP Co de Phone Number [facility] [address] [place] [address] * (ABNORMAL) Hemoglobin A1c (08/24/2025 3:59 AM EDT) Hemoglobin A1c 6.0(H) <5.7 % 08/24/2025 5:[address] [facility] Blood Venous blood specimen / Unknown Venipuncture / Unknown 08/24/2025 3:59 AM EDT 08/24/2025 4:[address] [facility] - 08/24/2025 5:13 PM EDT HA1C Interpretive Data: Diagnosis of Diabetes: Diabetic > or = 6.5% Pre-diabetic 5.7 to 6.4% Non-diabetic < or = 5.6% Glycemic Targets for Type I and Type II Diabetics: Non- Adults <7.0% Adults <6.0% Children and Adolescents <7.5% Source: [place] [employer]. Standards of medical care in diabetes,2017. Diabetes Care.2017:40 (suppl 1):S1-S135. Brigid RIBEIRO LAB BLOOD ORDERABLES Final Result [facility] [address] [place] [address] * (ABNORMAL) Basic metabolic panel (08/24/2025 3:59 AM EDT) Glucose, Plasma 167(H) 74 - 99 mg/dL 08/24/2025 5:[address] [facility] BUN, Plasma 29(H) 8 - 23 mg/dL 08/24/2025 5:[address] [facility] Creatinine, Plasma 0.86 0.60 - 1.10 mg/dL 08/24/2025 5:[address] [facility] BUN/Creatinine Ratio 34 08/24/2025 5:[address] [facility] Sodium, Plasma 141 136 - 145 mmol/L 08/24/2025 5:[address] [facility] Potassium, Plasma 4.2 3.6 - 4.9 mmol/L 08/24/2025 5:[address] [facility] Chloride, Plasma 107 97 - 107 mmol/L 08/24/2025 5:[address] [facility] CO2, Plasma 19(L) 22 - 29 mmol/L 08/24/2025 5:[address] [facility] Anion Gap 15 6 - 16 mmol/L 08/24/2025 5:[address] [facility] Total Calcium, Plasma 9.0 8.9 - 10.2 mg/dL 08/24/2025 5:[address] [facility] eGFRcr 74.6 mL/min/1.7 3m*2 08/24/2025 5:[address] [facility] Comment:Reported eGFRcr in m L/min/1.73m2 is based the CKD-EPI 2020 equation that does not use a race coefficient. Blood Venous blood specimen / Unknown Venipuncture / Unknown 08/24/2025 3:59 AM EDT 08/24/2025 4:22 AM EDT us Kwesi Yang MD LAB BLOOD ORDERABLES Final R esult [facility] [address] [place] [address] * CT Shoulder Right wo IV Contrast [...] lesser humeral tuberosity, humeral head and neck. [id number] osteoarthritis the glenohumeral joint. Moderate osteoarthritis of [...] lesser humeral tuberosity, humeral head and neck. [id number] osteoarthritis the glenohumeral joint. Moderateosteoarthritis of the [...] 4:34 PM EDT) Case Report Cytology Case: [id number] Authorizing Provider: Marlen Pop, Collected: 07/15/2023 1634 Ordering Location: [facility] Gynecology Received: 07/16/2023 1034 First Screen: Naomi Rosales Pathologist: Joann Martinez MD Specimen: ThinPrep Pap Test, Liquid-Based Cervical/Vagin al 07/23/2023 11:38 AM EDT [facility] Interpretation ATYPICAL SQUAMOUS CELLS OF UNDETERMINED SIGNIFICANCE (ASCUS)(A) 07/23/2023 11:38 AM EDT [facility] at 1138 EDT Other Findings Reactive endocervical gland cells. Inflammation and repair. 07/23/2023 11:38 AM EDT [facility] Specimen Adequacy Satisfactory for evaluation; endocervical/t ransformation zone component present. Slide imaged by the ThinPrep Imaging system and selected 22 vasquez reviewed then full manual screening. 07/23/2023 11:38 AM EDT [facility] Cervical cytology is a screening [...] results is suggested (please call Microbiology at [phone] for results). 07/23/2023 11:38 AM EDT [facility] Menstrual Status Post-Menopausa l 07/23/2023 11:38 AM EDT [facility] Contraceptive History Not Applicable 07/23/2023 11:38 AM EDT [facility] Screening Type Routine Screen 2022 11:38 AM EDT [facility] High Risk? No 07/23/2023 11:38 AM EDT [facility] HPV Testing Requested? Request HPV Testing Regardless of Pap Test Findings 07/23/2023 11:38 AM EDT [facility] Previous Cancer History No 07/23/2023 11:38 AM EDT [facility] Intradepartmental Consultation with Agreement 07/23/2023 11:38 AM EDT [facility] Clinical Information R19.00 - Pelvic mass [ICD-10-CM] 07/23/2023 11:38 AM EDT [facility] Swab Vaginal and cervical cytologic material / Unknown Non-blood Collection / Unknown 07/15/2023 4:34 PM EDT 07/16/2023 10:34 AM EDT us Marlen Loredo MD LAB CYTOLOGY ORDERABL ES Final Result [facility] [address] [place] [id number] from Last 3 Months or Most Recently Relevant to Health Maintenance Insurance [facility] MEDICARE Advance Directives * Full Code [...] Patient has decision-making capacity? Yes Care Teams Reefer Engineer Relationship Specialty Start Date End Date Brad Hassan MD [address] [place] [address] PCP - General Internal Medicine 08/08/23 Greta Simpson DO [facility] G4 [id number] Obstetrics and Gynecology 07/03/23
--- OUTSIDE RECORDS SUMMARY | 2025-10-25 09:51 | XMS_ITS | Encounter Summary ---
Author Organization Healthcare Address [address] [place] [address] Care Team Providers Care Precast Concrete Ironworker Name Role Phone Greta Simpson DO Unavailable [phone] Brad Hassan MD Primary Care Provider [phone] Encounter Details Date Type Department Care Team (Late st Contact Info) Description 08/23/2025 Orders Only External Location [address] [place] [id number] Provider, External Social History Tobacco Use Types [...] in a retirement (including now)? No 08/24/2025 [facility] Utilities Answer Date Recorded In the past 12 months has th e [employer], gas, oil, or water company threatened [...] drink first t fabian in the morning (EYE-DIDACTIC PROGRAM IN DIETETICS DIRECTOR) to steady your nerves or to [...] documented as of this encounter Care Teams Precast Concrete Ironworker Relationship Specialty Start Date End Date Brad Hassan MD [address] [place] [address] PCP - General Internal Medicine 08/08/23 Greta Simpson DO [facility] G4 [id number] Obstetrics and Gynecology 07/03/23 documented as of this encounter
--- OUTSIDE RECORDS SUMMARY | 2025-10-25 09:51 | XMS_ITS | Encounter Summary ---
Author Organization [facility] Address [address] [place] [address] Care Team Providers Care Soft Shoe Dancer Name Role Phone Greta Simpson DO Unavailable [phone] Brad Hassan MD Primary Care Provider [phone] Encounter Details Date Type Department Care Team [...] any time in the past 12 m [facility], were you homeless or living in a skilled nursing (including now)? No 08/24/2025 [facility] [...] drink first t fabian in the morning (EYE-NURSING CLERK) to steady your nerves or to [...] Answer Date of Assessment Author Precautions Fall risk;[facility] 08/31/2025 8:00 PM EDT [...] documented as of this encounter Care Teams Soft Shoe Dancer Relationship Specialty Start Date End Date Brad Hassan MD [address] [place] [address] [place] [address] PCP - General Internal Medicine 08/08/23 Greta Simpson DO [facility] [address] Obstetrics and Gynecology 07/03/23 documented as of this encounter
--- OUTSIDE RECORDS SUMMARY | 2025-10-25 09:51 | XMS_ITS | Encounter Summary ---
Author Organization Healthcare Address [address] [place] [address] Care Team Providers Care Franchise Business Consultant Name Role Phone Greta Simpson DO Unavailable [phone] Brad Hassan MD Primary Care Provider [phone] Encounter Details Date Type Department Care Team (Late st Contact Info) Description 08/23/2025 Orders Only External Location [address] [place] [phone] Provider, External Social History Tobacco Use Types [...] time in the past 12 m [facility], were you homeless or living in a correction (including now)? No 08/24/2025 [facility] Utilities Answer Date Recorded In the past 12 months has th e [employer], gas, oil, or water company threatened to [...] drink first t fabian in the morning (EYE-FLORAL ARTIST) to steady your nerves or to get [...] documented as of this encounter Care Teams Franchise Business Consultant Relationship Specialty Start Date End Date Brad Hassan MD [address] [place] [address] [place] [address] PCP - General Internal Medicine 08/08/23 Greta Simpson DO [facility] G4 [address] Obstetrics and Gynecology 07/03/23 documented as of this encounter
--- OUTSIDE RECORDS SUMMARY | 2025-10-25 09:52 | XMS_ITS | Encounter Summary ---
Author Organization Healthcare Address [address] [place] [address] Care Team Providers Care Receiving Dock Checker Name Role Phone Greta Simpson DO Unavailable [phone] Brad Hassan MD Primary Care Provider [phone] Encounter Details Date Type Department Care Team (Late st Contact Info) Description 08/23/2025 Orders Only External Location [address] [place] [id number] Provider, External Social History Tobacco Use Types [...] time in the past 12 m [facility], were you homeless or living in a residential (including now)? No 08/24/2025 [facility] Utilities Answer Date Recorded In the past 12 months has th e [employer], gas, oil, or water company threatened to [...] drink first t fabian in the morning (EYE-CEMENT CONTRACTOR) to steady your nerves or to get [...] documented as of this encounter Care Teams Receiving Dock Checker Relationship Specialty Start Date End Date Brad Hassan MD [address] [place] [address] [place] [address] PCP - General Internal Medicine 08/08/23 Greta Simpson DO [facility] [[email or web address] G4 [address] Obstetrics and Gynecology 07/03/23 documented as of this encounter
--- OUTSIDE RECORDS SUMMARY | 2025-10-25 09:52 | XMS_ITS | Encounter Summary ---
Author Organization Healthcare Address [address] [place] [address] Care Team Providers Care Supervisor Tank Storage Name Role Phone Greta Simpson DO Unavailable [phone] Brad Hassan MD Primary Care Provider [phone] Encounter Details Date Type Department Care Team (Late st Contact Info) Description 08/23/2025 Orders Only External Location [address] [place] [phone] Provider, External Social History Tobacco Use Types [...] time in the past 12 m [facility], were you homeless or living in a assisted (including now)? No 08/24/2025 [facility] Utilities Answer Date Recorded In the past 12 months has th e [employer], gas, oil, or water company threatened to [...] first t fabian in the morning (EYE-ENVIRONMENTAL PERMITTING SPECIALIST) to steady your nerves or to [...] as of this encounter Care Teams Supervisor Tank Storage Relationship Specialty Start Date End Date Brad Hassan MD [address] [place] [address] [place] [address] PCP - General Internal Medicine 08/08/23 Greta Simpson DO [facility] G4 [address] Obstetrics and Gynecology 07/03/23 documented as of this encounter
--- OUTSIDE RECORDS SUMMARY | 2025-10-25 09:52 | XMS_ITS | Encounter Summary ---
Author Organization Healthcare Address [address] [place] [address] Care Team Providers Care Shop Foreman Name Role Phone Greta Simpson DO Unavailable [phone] Brad Hassan MD Primary Care Provider [phone] Encounter Details Date Type Department Care Team (Late st Contact Info) Description 08/23/2025 Orders Only External Location [address] [place] [phone] Provider, External Social History Tobacco Use Types [...] any time in the past 12 m [facility], were you homeless or living in a group home (including now)? No 08/24/2025 [facility] Utilities Answer Date Recorded In the past 12 months has th e [employer], gas, oil, or water company threatened to [...] drink first t fabian in the morning (EYE-DECAL APPLIER) to steady your nerves or to get [...] documented as of this encounter Care Teams Shop Foreman Relationship Specialty Start Date End Date Brad Hassan MD [address] [place] [address] [place] [address] PCP - General Internal Medicine 08/08/23 Greta Simpson DO [place] G4 [address] Obstetrics and Gynecology 07/03/23 documented as of this encounter
--- OUTSIDE RECORDS SUMMARY | 2025-10-25 09:52 | XMS_ITS | Encounter Summary ---
Author Organization Healthcare Address [address] [place] [address] Care Team Providers Care Network Applications Specialist Name Role Phone Greta Simpson DO Unavailable [phone] Brad Hassan MD Primary Care Provider [phone] Encounter Details Date Type Department Care Team (Late st Contact Info) Description 08/23/2025 Orders Only External Location [address] [place] [address] Julianna Copeland, DO [address] [place] [address] Social History Tobacco Use Types [...] in the past 12 m [facility], were you homeless or living in a snf (including now)? No 08/24/2025 [facility] Utilities Answer Date Recorded In the past [...] drink first t fabian in the morning (EYE-COAL CONVEYOR OPERATOR) to steady your nerves or to [...] documented as of this encounter Care Teams Network Applications Specialist Relationship Specialty Start Date End Date Brad Hassan MD [address] [place] [address] [place] [address] PCP - General Internal Medicine 08/08/23 Greta Simpson DO [facility] G4 [address] Obstetrics and Gynecology 07/03/23 documented as of this encounter
--- OUTSIDE RECORDS SUMMARY | 2025-10-25 09:52 | XMS_ITS | Encounter Summary ---
Author Organization Healthcare Address [address] [place] [address] Care Team Providers Care Oracle Hrms Consultant Name Role Phone Greta Simpson DO Unavailable [phone] Brad Hassan MD Primary Care Provider [phone] Encounter Details Date Type Department Care Team (Late st Contact Info) Description 08/23/2025 Orders Only External Location [address] [place] [address] Provider, External Social History Tobacco Use Types [...] any time in the past 12 m [facility], were you homeless or living in a fpc (including now)? No 08/24/2025 [facility] Utilities Answer Date Recorded In the past 12 months has th e [employer], gas, oil, or water company threatened to [...] drink first t fabian in the morning (EYE-HOP WORKER) to steady your nerves or to [...] documented as of this encounter Care Teams Oracle H[employer]ms Consultant Relationship Specialty Start Date End Date Brad Hassan MD [address] [place] [address] [place] [address] PCP - General Internal Medicine 08/08/23 Greta Simpson DO [facility] G4 [address] Obstetrics and Gynecology 07/03/23 documented as of this encounter
--- OUTSIDE RECORDS SUMMARY | 2025-10-25 09:52 | XMS_ITS | Encounter Summary ---
Author Organization Healthcare Address [address] [place] [address] Care Team Providers Care Accessibility Lift Technician Name Role Phone Greta Simpson DO Unavailable [phone] Brad Hassan MD Primary Care Provider [phone] Encounter Details Date Type Department Care Team (Late st Contact Info) Description 08/23/2025 Orders Only External Location [address] [place] [phone] Provider, External Social History Tobacco Use Types [...] time in the past 12 m [facility], were you homeless or living in a mcc (including now)? No 08/24/2025 [facility] Utilities Answer Date Recorded In the past 12 months has th e [employer], gas, oil, or water company threatened to [...] drink first t fabian in the morning (EYE-COMPENSATION AND BENEFITS ADVISOR) to steady your nerves or to get [...] documented as of this encounter Care Teams Accessibility Lift Technician Relationship Specialty Start Date End Date Brad Hassan MD [address] [place] [address] [place] [address] PCP - General Internal Medicine 08/08/23 Greta Simpson DO [facility] G4 [address] Obstetrics and Gynecology 07/03/23 documented as of this encounter
--- OUTSIDE RECORDS SUMMARY | 2025-10-25 09:52 | XMS_ITS | Encounter Summary ---
Author Organization Healthcare Address [address] [place] [address] Care Team Providers Care Bundle Wrapper Name Role Phone Greta Simpson DO Unavailable [phone] Brad Hassan MD Primary Care Provider [phone] Encounter Details Date Type Department Care Team (Late st Contact Info) Description 08/23/2025 Orders Only External Location [address] [place] [address] Julianna Copeland, DO [address] [place] [address] Social History Tobacco Use Types [...] health care facility (including now)? No 08/24/2025 [facility] Utilities Answer Date Recorded In [...] drink first t fabian in the morning (EYE-MANAGER RELATIONSHIP) to steady your nerves or to get [...] documented as of this encounter Care Teams Bundle Wrapper Relationship Specialty Start Date End Date Brad Hassan MD [address] [place] [address] [place] [address] PCP - General Internal Medicine 08/08/23 Greta Simpson DO [facility] G4 [address] Obstetrics and Gynecology 07/03/23 documented as of this encounter
--- OUTSIDE RECORDS SUMMARY | 2025-10-25 09:52 | XMS_ITS | Encounter Summary ---
Author Organization Healthcare Address [address] [place] [address] Care Team Providers Care Patient Coordinator Name Role Phone Greta Simpson DO Unavailable [phone] Brad Hassan MD Primary Care Provider [phone] Encounter Details Date Type Department Care Team (Late st Contact Info) Description 08/23/2025 Orders Only External Location [address] [place] [phone] Provider, External Social History Tobacco Use Types [...] any time in the past 12 m [facility], were you homeless or living in a fci (including now)? No 08/24/2025 [facility] Utilities Answer Date Recorded In the past 12 months has th e [employer], gas, oil, or water company threatened to [...] Have you had a drink first t fabain in the morning (EYE-PHYSICIST NUCLEAR) to steady your nerves or to get [...] documented as of this encounter Care Teams Patient Coordinator Relationship Specialty Start Date End Date Brad Hassan MD [address] [place] [address] [place] [address] PCP - General Internal Medicine 08/08/23 Greta Simpson DO [place] G4 [address] Obstetrics and Gynecology 07/03/23 documented as of this encounter
--- OUTSIDE RECORDS SUMMARY | 2025-10-25 09:52 | XMS_ITS | Encounter Summary ---
Author Organization Healthcare Address [address] [place] [address] Care Team Providers Care Gas Brazer Name Role Phone Greta Simpson DO Unavailable [phone] Brad Hassan MD Primary Care Provider [phone] Encounter Details Date Type Department Care Team (Late st Contact Info) Description 08/23/2025 Orders Only External Location [address] [place] [phone] Provider, External Social History Tobacco Use Types [...] in the past 12 m [facility], were you homeless or living in a nursing home (including now)? No 08/24/2025 [facility] Utilities Answer Date Recorded In the past 12 months has th e [employer], gas, oil, or water company threatened to [...] drink first t fabian in the morning (EYE-FIRE EQUIPMENT OPERATOR) to steady your nerves or to [...] documented as of this encounter Care Teams Gas Brazer Relationship Specialty Start Date End Date Brad Hassan MD [address] [place] [address] [place] [address] PCP - General Internal Medicine 08/08/23 Greta Simpson DO [facility] G4 [address] Obstetrics and Gynecology 07/03/23 documented as of this encounter
--- OUTSIDE RECORDS SUMMARY | 2025-10-25 09:52 | XMS_ITS | Encounter Summary ---
Author Organization Healthcare Address [address] [place] [address] Care Team Providers Care Prop Maker Name Role Phone Greta Simpson DO Unavailable [phone] Brad Hassan MD Primary Care Provider [phone] Encounter Details Date Type Department Care Team (Late st Contact Info) Description 08/23/2025 Orders Only External Location [address] [place] [phone] Provider, External Social History Tobacco Use Types [...] time in the past [address] [facility], were you homeless or living in a snf (including now)? No 08/24/2025 [facility] Utilities Answer Date Recorded In the past 12 months has th e [employer], gas, oil, or water company threatened to [...] drink first t fabian in the morning (EYE-GOLF TECHNICIAN) to steady your nerves or to [...] documented as of this encounter Care Teams Prop Maker Relationship Specialty Start Date End Date Brad Hassan MD [address] [place] [address] [place] [address] PCP - General Internal Medicine 08/08/23 Greta Simpson DO [facility] G4 [address] Obstetrics and Gynecology 07/03/23 documented as of this encounter
--- OUTSIDE RECORDS SUMMARY | 2025-10-25 09:52 | XMS_ITS | Encounter Summary ---
Author Organization Healthcare Address [address] [place] [address] Care Team Providers Care Specimen Accessioner Name Role Phone Greta Simpson DO Unavailable [phone] Brad Hassan MD Primary Care Provider [phone] Encounter Details Date Type Department Care Team (Late st Contact Info) Description 08/23/2025 Orders Only External Location [address] [place] [address] Julianna Copeland, DO [address] [place] [address] Social History Tobacco Use Types [...] health care facility (including now)? No 08/24/2025 [facility] Utilities Answer Date Recorded In the [...] first t fabian in the morning (EYE-MACHINE HEEL BUILDER) to steady your nerves or to [...] documented as of this encounter Care Teams Specimen Accessioner Relationship Specialty Start Date End Date Brad Hassan MD [address] [place] [address] [place] [address] PCP - General Internal Medicine 08/08/23 Greta Simpson DO [facility] G4 [address] Obstetrics and Gynecology 07/03/23 documented as of this encounter
--- OUTSIDE RECORDS SUMMARY | 2025-10-25 09:52 | XMS_ITS | Encounter Summary ---
Author Organization Healthcare Address [address] [place] [address] Care Team Providers Care Marriage And Family Teacher Name Role Phone Greta Simpson DO Unavailable [phone] Brad Hassan MD Primary Care Provider [phone] Encounter Details Date Type Department Care Team (Late st Contact Info) Description 08/23/2025 Orders Only External Location [address] [place] [address] Julianna Copeland, DO [address] [place] [address] Social History Tobacco Use Types [...] in a jail (including now)? No 08/24/2025 [facility] Utilities Answer Date Recorded In the [...] drink first t fabian in the morning (EYE-MAIL DISTRIBUTION CLERK) to steady your nerves or to [...] 1 Month) No 08/27/2025 8:00 AM EDT Vivina Keller RN 6. Suicidal Behavior (Lifetime) No [...] 08/23/2025 5:49 PM EDT Julianna Copeland DO [facility] CT PROCEDURES Edited Result - Final documented in this encounter Visit Diagnoses Not on filedocumented in this encounter Additional Health Concerns Assessment Noted Time A fall risk assessment has been complete d for the patient 09/02/2023 4:03 PM EDT A Body Mass Index follow-up plan has been documented for the patient 09/01/2025 1:30 PM EDT documented as of this encounter Care Teams Marriage And Family Teacher Relationship Specialty Start Date End Date Brad Hassan MD [address] [place] [address] [place] [address] PCP - General Internal Medicine 08/08/23 Greta Simpson DO [facility] G4 [address] Obstetrics and Gynecology 07/03/23 documented as of this encounter
--- OUTSIDE RECORDS SUMMARY | 2025-10-25 09:52 | XMS_ITS | Encounter Summary ---
Author Organization Healthcare Address [address] [place] [address] Care Team Providers Care Pharmaceutical Process Engineer Name Role Phone Greta Simpson DO Unavailable [phone] Brad Hassan MD Primary Care Provider [phone] Encounter Details Date Type Department Care Team (Late st Contact Info) Description 08/23/2025 Orders Only External Location [address] [place] [address] Provider, External Social History Tobacco Use Types [...] any time in the past 12 m [facility], were you homeless or living in a snf (including now)? No 08/24/2025 [facility] Utilities Answer Date Recorded In the past 12 months has th e [employer], gas, oil, or water company threatened to [...] drink first t fabian in the morning (EYE-POLICY CHANGE CLERK) to steady your nerves or to [...] documented as of this encounter Care Teams Pharmaceutical Process Engineer Relationship Specialty Start Date End Date Brad Hassan MD [address] [place] [address] [place] [address] PCP - General Internal Medicine 08/08/23 Greta Simpson DO [facility] G4 [address] Obstetrics and Gynecology 07/03/23 documented as of this encounter
--- OUTSIDE RECORDS SUMMARY | 2025-10-25 09:52 | XMS_ITS | Encounter Summary ---
Author Organization Healthcare Address [address] [place] [address] Care Team Providers Care Form Presser Name Role Phone Greta Simpson DO Unavailable [phone] Brad Hassan MD Primary Care Provider [phone] Encounter Details Date Type Department Care Team (Late st Contact Info) Description 08/23/2025 Orders Only External Location [address] [place] [phone] Provider, External Social History Tobacco Use Types [...] time in the past 12 m [facility], were you homeless or living in a group home (including now)? No 08/24/2025 [facility] Utilities Answer Date Recorded In the past 12 months has th e [employer], gas, oil, or water company threatened to [...] drink first t fabian in the morning (EYE-STEAMER OPERATOR) to steady your nerves or to [...] documented as of this encounter Care Teams Form Presser Relationship Specialty Start Date End Date Brad Hassan MD [address] [place] [address] [place] [address] PCP - General Internal Medicine 08/08/23 Greta Simpson DO [facility] G4 [address] Obstetrics and Gynecology 07/03/23 documented as of this encounter
--- OUTSIDE RECORDS SUMMARY | 2025-10-25 09:52 | XMS_ITS | Encounter Summary ---
Author Organization Healthcare Address [address] [place] [address] Care Team Providers Care Systems Software Engineer Name Role Phone Greta Simpson DO Unavailable [phone] Brad Hassan MD Primary Care Provider [phone] Encounter Details Date Type Department Care Team (Late st Contact Info) Description 08/23/2025 Orders Only External Location [address] [place] [phone] Provider, External Social History Tobacco Use Types [...] a group home (including now)? No 08/24/2025 [facility] Utilities Answer Date Recorded In the past 12 months has th e [employer], gas, oil, or water company threatened to [...] drink first t fabian in the morning (EYE-INDUSTRIAL RELATIONS COUNSELOR) to steady your nerves or to [...] documented as of this encounter Care Teams Systems Software Engineer Relationship Specialty Start Date End Date Brad Hassan MD [address] [place] [address] [place] [address] PCP - General Internal Medicine 08/08/23 Greta Simpson DO [facility] G4 [address] Obstetrics and Gynecology 07/03/23 documented as of this encounter
--- OUTSIDE RECORDS SUMMARY | 2025-10-25 09:52 | XMS_ITS | Encounter Summary ---
Author Organization Healthcare Address [address] [place] [address] Care Team Providers Care School Physical Therapist Name Role Phone Greta Simpson DO Unavailable [phone] Brad Hassan MD Primary Care Provider [phone] Encounter Details Date Type Department Care Team (Late st Contact Info) Description 08/23/2025 Orders Only External Location [address] [place] [phone] Provider, External Social History Tobacco Use Types [...] in the past 12 m [facility], were you homeless or living in a detention (including now)? No 08/24/2025 [facility] Utilities Answer Date Recorded In the past 12 months has th e [employer], gas, oil, or water company threatened to [...] drink first t fabian in the morning (EYE-FIREARMS ASSEMBLY SUPERVISOR) to steady your nerves or to [...] documented as of this encounter Care Teams School Physical Therapist Relationship Specialty Start Date End Date Brad Hassan MD [address] [place] [address] [place] [address] PCP - General Internal Medicine 08/08/23 Greta Simpson DO [facility] G4 [address] Obstetrics and Gynecology 07/03/23 documented as of this encounter
--- OUTSIDE RECORDS SUMMARY | 2025-10-25 09:52 | XMS_ITS | Encounter Summary ---
Author Organization Healthcare Address [address] [place] [address] Care Team Providers Care Mop Man Name Role Phone Greta Simpson DO Unavailable [phone] Brad Hassan MD Primary Care Provider [phone] Encounter Details Date Type Department Care Team (Late st Contact Info) Description 08/23/2025 Orders Only External Location [address] [place] [address] Provider, External Social History Tobacco Use Types [...] any time in the past 12 m [facility], were you homeless or living in a penitentiary (including now)? No 08/24/2025 [facility] Utilities Answer Date Recorded In the past 12 months has th e [employer], gas, oil, or water company threatened to [...] drink first t fabian in the morning (EYE-AMMONIA REFRIGERATION TECHNICIAN) to steady your nerves or to [...] documented as of this encounter Care Teams Mop Man Relationship Specialty Start Date End Date Brad Hassan MD [address] [place] [address] [place] [address] PCP - General Internal Medicine 08/08/23 Greta Simpson DO [facility] G4 [address] Obstetrics and Gynecology 07/03/23 documented as of this encounter
--- OUTSIDE RECORDS SUMMARY | 2025-10-25 09:52 | XMS_ITS | Encounter Summary ---
Author Organization Healthcare Address [address] [place] [address] Care Team Providers Care Reference Library Assistant Name Role Phone Greta Simpson DO Unavailable [phone] Brad Hassan MD Primary Care Provider [phone] Encounter Details Date Type Department Care Team (Late st Contact Info) Description 08/23/2025 Orders Only External Location [address] [place] [id number] Provider, External Social History Tobacco Use Types [...] any time in the past 12 m [facility], were you homeless or living in a snf (including now)? No 08/24/2025 [facility] Utilities Answer Date Recorded In the past 12 months has th e [employer], gas, oil, or water company threatened to [...] drink first t fabian in the morning (EYE-ANGIOGR[employer]HY TECHNOLOGIST) to steady your nerves or to [...] documented as of this encounter Care Teams Reference Library Assistant Relationship Specialty Start Date End Date Brad Hassan MD [address] [place] [address] [place] [id number] PCP - General Internal Medicine 08/08/23 Greta Simpson DO [facility] G4 [id number] Obstetrics and Gynecology 07/03/23 documented as of this encounter
--- NOTE | 2025-10-25 09:59 | XR_ITS ---
FINAL REPORT CLINICAL HISTORY: right shoulder fx COMPARISON: 09/28/2025 FINDINGS: RIGHT SHOULDER Three views of the right shoulder were obtained. There is redemonstration of a fracture of the humeral head with significant displacement. There is new callus formation along the lateral humeral head indicating some healing. IMPRESSION: Partial healing of significantly displaced humeral head fracture. Reviewed, Interpreted and Dictated by Kar Lamb MD Transcribed by Mirna Figueroa Authenticated and . [facility]
--- NOTE | 2025-10-25 09:59 | XR_ITS ---
FINAL REPORT CLINICAL HISTORY: right humerus fx COMPARISON: 09/28/2025 FINDINGS: RIGHT HUMERUS 2 views of the right shoulder were obtained. There is redemonstration of a fracture of the humeral head with significant displacement. There is new callus formation along the lateral humeral head indicating some healing. IMPRESSION: Partial healing of significantly displaced humeral head fracture. Reviewed, Interpreted and Dictated by Kar Lamb MD Transcribed by Mirna Figueroa Authenticated and [facility]
== END 2025-10-25 23:59 ==
LOC: RAD 09:48
PROVIDERS: PCP Nurse Practitioner Family; Visit Provider Student in an Organized Health Care Education/Training Program
DX: S42.301D Unspecified fracture of shaft of humerus, right arm, subsequent encounter for fracture with routine healing (principal); X58.XXXD Exposure to other specified factors, subsequent encounter
CPT/HCPCS: 73030; 73060